=== PATIENT | female | born 1960 | race Two or more races ===

== ENCOUNTER 2017-06-30 01:10 | Inpatient (IN) | payer MEDICARE ==
--- NOTE | 2017-06-30 01:37 | ER Document Report ---
ED General - General Chief Complaint: Chest Pain Stated Complaint: CHEST PAIN Time Seen by Provider: 06/30/17 01:36 Notes: Patient is a 57-year-old female presents with complaint of heaviness on her chest and feeling short of breath and needing dialysis. She just moved here from [place] Friday night. She says that she has not had dialysis since Friday the week before. She is also out of all her medications. She is supposed be on insulin for diabetes. She says she is on hydralazine and clonidine patch for high blood pressure. She is unsure what the dosages of these medications are. She says that her long term care social worker was set up her dialysis appointment here but she never heard about where when the appointment is. She does not have a doctor yet. She has no other complaints at this time. Her dialysis is usually Friday. TRAVEL OUTSIDE OF THE [place] IN LAST 30 DAYS: No - Related Data Allergies/Adverse Reactions: Penicillins Allergy (Verified 06/30/17 01:27) Past Medical History - Social History Smoking Status: Unknown if Ever Smoked Frequency of alcohol use: None Drug Abuse: None Family History: Reviewed & Not Pertinent Review of Systems - Review of Systems Notes: My Normal Review Basic REVIEW OF SYSTEMS: CONSTITUTIONAL : Denies fever, chills, or sweats. Denies recent illness. EENT: Denies eye, ear, throat, or mouth pain or symptoms. Denies nasal or sinus congestion. CARDIOVASCULAR: Chest pressure RESPIRATORY: Difficulty breathing. GASTROINTESTINAL: Denies abdominal pain. Denies nausea, vomiting, or diarrhea. Denies constipation. Last BM: MUSCULOSKELETAL: Denies neck or back pain or joint pain or swelling. SKIN: Denies rash or skin lesions. NEUROLOGICAL: Denies altered mental status or loss of consciousness. Denies headache. Denies weakness or paralysis or loss of use of either side. Denies problems with gait or speech. Denies sensory or motor loss. ALL OTHER SYSTEMS REVIEWED AND NEGATIVE. Physical Exam - Vital signs Vitals: Temp Pulse Resp BP Pulse Ox 98.0 F 102 H 20 225/82 H 94 06/30/17 01:26 06/30/17 01:26 06/30/17 01:26 06/30/17 01:26 06/30/17 01:26 - Notes Notes: General Appearance: Well nourished, alert, cooperative, mild acute distress, no obvious discomfort. Vitals: reviewed, See vital signs table. Head: no swelling or tenderness to the head Eyes: PERRL, EOMI, Conjuctiva clear Mouth: No decreasd moisture Throat: No tonsillar inflammation, No airway obstruction, No lymphadenopathy Neck: Supple, no neck tenderness, No thyromegaly Lungs: Basilar rales. Some tachypnea. Mild distress. Heart: Normal rate, Regular rythm, No murmur, no rub Abdomen: Normal BS, soft, No rigidity, No abdominal tenderness, No guarding, no rebound, no abdominal masses, no organomegaly Extremities: strength 5/5 in all extremities, good pulses in all extremities, no swelling or tenderness in the extremities, no edema. Skin: warm, dry, appropriate color, no rash Neuro: speech clear, oriented x 3, normal affect, responds appropriately to questions. Course - Re-evaluation Re-evalutation: 06/30/17 02:23 Patient's oxygen is occasionally dropping to 90%. I will place her on 2 L of nasal cannula. 06/30/17 04:09 Patient requires dialysis. We do not currently have dialysis capable abilities as we have no trench digging machine operator concrete grinder operator for unassigned nephrology. We do have Dr. Gutierres at 8am. I did call her hospitalist, Dr. Villegas discussed the case with him. His concern is that the patient has peak T waves and that if she was to decompensate need nephrology immediately would be unable to provide that. She requests that we do transfer the patient is currently we actually do not have nephrology coverage. I have spoken to patient's daughter who request [facility]. I have spoken with the transfer center coordinator at [facility] and they are paging the hospitalist for me to speak with. 06/30/17 04:[address] Edward from [facility]. He has agreed to accept the patient. They said they will call us back with that assignment. I will order repeat BMP to keep an eye on the patient's potassium. Dictation of this chart was performed using voice recognition software; therefore, there may be some unintended grammatical errors. 06/30/17 05:24 We just got word from [facility] that even of the joint of the bed would bring the patient over as a rapid transfer however they will not have transport available to somewhere between 730 and 8 AM. We do have nephrology coverage starting at 8 AM. I did call back or hospice, Dr. Villegas, who agrees to accept the patient being that the transferring will not expedite the patient's to dialysis. He requested that I contact Nicholas, the dialysis nurse, to make the patient reported for this morning. I did talk to nursing burling and joining supervisor, Elle, who said she would informed nicholas to make this patient priority for the morning dialysis. I also give Kayexalate as requested by Dr. Villegas. Dictation of this chart was performed using voice recognition software; therefore, there may be some unintended grammatical errors. - Vital Signs Vital signs: Temp Pulse Resp BP Pulse Ox 98.0 F 102 H 20 225/82 H 94 06/30/17 01:26 06/30/17 01:26 06/30/17 01:26 06/30/17 01:26 06/30/17 01:26 - Laboratory Result Diagrams: 06/30/17 02:30 06/30/17 02:30 Laboratory results interpreted by me: 06/30/17 06/30/17 06/30/17 02:30 02:30 02:30 WBC 13.0 H RBC 2.73 L Hgb 8.8 L Hct 26.6 L MCV 98 H RDW 15.6 H Seg Neutrophils % 82.4 H Lymphocytes % 11.5 L Absolute Neutrophils 10.7 H Sodium 135.6 L Potassium 6.1 H* Carbon Dioxide 13 L Anion Gap 24 H BUN 125 H Creatinine 11.26 H Est GFR ( Amer) 4 L Est GFR (Non-Af Amer) 3 L Glucose 440 H* Calcium 7.5 L Direct Bilirubin 0.8 H Alkaline Phosphatase 189 H Creatine Kinase 235 H CK-MB (CK-2) 6.19 H - EKG Interpretation by Me Additional EKG results interpreted by me: 06/30/17 01:37 EKG is reviewed and interpreted by me. EKG shows normal sinus rhythm with rate of [address] segment elevation. Very mild ST segment depression in lead V6. SC interval, QRS duration are within normal range. QTc interval is prolonged. Old EKG available for comparison. Discharge - Discharge Clinical Impression: Hyperkalemia, ESRD (end stage renal disease) Chest pain Qualifiers: Chest pain type: unspecified Qualified Code(s): R07.9 - Chest pain, unspecified Dyspnea Qualifiers: Dyspnea type: unspecified Qualified Code(s): R06.00 - Dyspnea, unspecified Hypertension Qualifiers: Hypertension type: unspecified Qualified Code(s): I10 - Essential (primary) hypertension Condition: Stable Disposition: ADMITTED INPATIENT Admitting Provider: Hospitalist Unit Admitted: [facility]
[2017-06-30] MEDS ORDERED: HYDRALAZINE HCL 50 MG TABLET PO ONE (01:44)
[2017-06-30] MEDS ORDERED: CLONIDINE 0.1 MG/24 HR PATCH.TDWK TD ONE (01:44)
[2017-06-30 03:06] LABS: ABSOLUTE BASOPHILS # (AUTO) 0.2 10^3/uL (0.0-0.2); ABSOLUTE EOSINOPHILS # (AUTO) 0.1 10^3/uL (0.0-0.6); ABSOLUTE LYMPHOCYTES (AUTO) 1.5 10^3/uL (0.5-4.7); ABSOLUTE MONOCYTES (AUTO) 0.5 10^3/uL (0.1-1.4); ABSOLUTE NEUT (AUTO) 10.7 10^3/uL (1.7-8.2); BASOPHILS % (AUTO) 1.3 % (0-2); EOSINOPHILS % (AUTO) 0.6 % (0-6); HEMATOCRIT 26.6 % (36.0-47.0); HEMOGLOBIN 8.8 g/dL (12.0-15.5); HGB HCT DIFFERENCE -0.2; LYMPHOCYTES % (AUTO) 11.5 % (13-45); MEAN CORPUSCULAR HEMOGLOBIN 32.4 pg (27.0-33.4); MEAN CORPUSCULAR HGB CONC 33.1 g/dL (32.0-36.0); MEAN CORPUSCULAR VOLUME 98 fl (80-97); MONOCYTES % (AUTO) 4.2 % (3-13); RED BLOOD COUNT 2.73 10^6/uL (3.72-5.28); RED CELL DISTRIBUTION WIDTH 15.6 % (11.5-14.0); SEGMENTED NEUTROPHILS % (AUTO) 82.4 % (42-78)
--- NOTE | 2017-06-30 03:07 | EKG REPORT ---
SEVERITY:- ABNORMAL ECG - SINUS RHYTHM LEFT ATRIAL ABNORMALITY PROBABLE LEFT VENTRICULAR HYPERTROPHY : Confirmed by: Deng Holt 30-Jun-2017 03:06:49
[2017-06-30 03:22] LABS: ALANINE AMINOTRANSFERASE 42 U/L (9-52); ALBUMIN 3.6 g/dL (3.5-5.0); ALKALINE PHOSPHATASE 189 U/L (38-126); ASPARTATE AMINO TRANSFERASE 22 U/L (14-36); BILIRUBIN,DIRECT 0.8 mg/dL (0.0-0.4); BILIRUBIN,TOTAL 0.8 mg/dL (0.2-1.3); CALCIUM 7.5 mg/dL (8.4-10.2); CARBON DIOXIDE 13 mmol/L (22-30); CHLORIDE 99 mmol/L (98-107); CREATINE KINASE 235 U/L (30-135); CREATININE RESULT 11.26 mg/dL (0.52-1.25); SODIUM 135.6 mmol/L (137-145)
[2017-06-30 03:33] LABS: BLOOD UREA NITROGEN 125 mg/dL (7-20); CREATINE KINASE MB 6.19 ng/mL (<4.55); TROPONIN I 0.033 ng/mL
[2017-06-30 03:35] LABS: GLUCOSE 440 mg/dL (75-110); POTASSIUM 6.1 mmol/L (3.6-5.0)
[2017-06-30] MEDS ORDERED: INSULIN REG, HUMAN 100 UNIT/ML 3 ML VIAL (PYX) IV ONE ×2 (03:40→06:01)
[2017-06-30] MEDS ORDERED: SODIUM BICARBONATE 8.4% INJ 50 MEQ/50 ML DISP.SYRIN IV ONE (03:41)
[2017-06-30 03:43] LABS: ANION GAP 24 (5-19)
--- NOTE | 2017-06-30 03:54 | RADIOLOGY REPORT (SQ) ---
EXAM DESCRIPTION: CHEST SINGLE VIEW CLINICAL HISTORY: 57 years, Female, chest pain, dyspnea COMPARISON: None. LIMITATIONS: None. FINDINGS: Small left basilar opacity may indicate pneumonia or scar. Mild interstitial markings. Normal cardiac silhouette. Intact bony thorax. IMPRESSION: Small left basilar pneumonia/atelectasis. 2011 [employer]- All Rights Reserved
[2017-06-30] MEDS ORDERED: CALCIUM GLUCONATE 1000 MG/10 ML INJ IV ONE (04:05)
[2017-06-30] MEDS ORDERED: SODIUM POLYSTYRENE SULFONATE 15 GM/60 ML PO ONE (05:20)
[2017-06-30] MEDS ORDERED: LACTULOSE SYRUP 20 GM/30 ML UDCUP PO ONE (05:25)
[2017-06-30] MEDS ORDERED: HYDRALAZINE HCL INJ/PF 20 MG/1 ML SDV IV PRN (05:25)
[2017-06-30] MEDS ORDERED: CLONIDINE HCL 0.2 MG TABLET PO ONE (05:25)
[2017-06-30] MEDS ORDERED: IPRATROPIUM/ALBUTEROL 0.5-2.5 MG/3 ML AMPUL NEB ONE (05:26)
[2017-06-30] MEDS ORDERED: DEXTROSE 40% GEL 15 GM TUBE PO PRN ×2 (05:26)
[2017-06-30] MEDS ORDERED: MAG HYDROX/AL HYDROX/SIMETH SUSP 30 ML UDCUP PO PRN ×2 (05:26→10:30)
[2017-06-30] MEDS ORDERED: INSULIN LISPRO 100 UNIT/ML 3 ML VIAL SUBCUT PRN (05:26)
[2017-06-30] MEDS ORDERED: IPRATROPIUM/ALBUTEROL 0.5-2.5 MG/3 ML AMPUL NEB PRN (05:26)
[2017-06-30] MEDS ORDERED: PROMETHAZINE HCL 25 MG TABLET PO PRN (05:26)
[2017-06-30] MEDS ORDERED: DEXTROSE 50%-WATER 25 GM/50 ML DISP.SYRIN IV PRN ×2 (05:26)
[2017-06-30] MEDS ORDERED: ACETAMINOPHEN 325 MG TABLET PO PRN ×2 (05:26→10:30)
[2017-06-30] MEDS ORDERED: GLUCAGON,HUMAN RECOMB 1 MG INJ IM PRN (05:26)
--- NOTE | 2017-06-30 06:10 | PDOC H&P ---
History of Present Illness Patient complains of: Shortness of breath and chest tightness History of Present Illness: SAMIA HEALY is a 57 year old female with a past medical history of insulin- dependent diabetes, hypertension and oliguric end-stage renal failure on dialysis Friday. Patient has just arrived in [place] after a [address] for relocation from [place]. She has subsequently missed 3 dialysis appointments and several days of unknown medications. Over the last 48 hours she has had shortness of breath and chest tightness. In the emergency room she is found to have a systolic pressure of 230/90, potassium of 6.1 with a long QT interval and peak T waves. She receives clonidine, Kayexalate, calcium gluconate and insulin and is referred to the hospitalist for ICU admission. She is currently pain-free and comfortable on nasal cannula oxygen. Past Medical History Cardiac Medical History: Reports: Hypertension Pulmonary Medical History: Reports: None EENT Medical History: Reports: None Neurological Medical History: Reports: None Endocrine Medical History: Reports: Diabetes Mellitus Type 1 Malignancy Medical History: Reports: None GI Medical History: Reports: None Musculoskeltal Medical History: Reports: None Skin Medical History: Reports: None Psychiatric Medical History: Reports: None Traumatic Medical History: Reports: None Hematology: Reports: None Infectious Medical History: Reports: None Past Surgical History Past Surgical History: Reports: Other - Hemodialysis vascular access left upper extremity Social History Information Source: Patient Lives with: Alone Smoking Status: Unknown if Ever Smoked Frequency of Alcohol Use: None Drugs: None - Advance Directive Resuscitation Status: Full Code Family History Family History: DM, Hypertension Parental Family History Reviewed: Yes Children Family History Reviewed: Yes Sibling(s) Family History Reviewed.: Yes Medication/Allergy Allergies/Adverse Reactions: Penicillins Allergy (Verified 06/30/17 01:27) Review of Systems Constitutional: PRESENT: as per HPI, fatigue, weakness, weight gain. ABSENT: anorexia, chills, fever(s), headache(s) Eyes: ABSENT: visual disturbances Ears: ABSENT: hearing changes Cardiovascular: PRESENT: chest pain, dyspnea on exertion, edema, orthropnea. ABSENT: palpitations Respiratory: PRESENT: as per HPI, cough, dyspnea. ABSENT: hemoptysis Gastrointestinal: ABSENT: abdominal pain, constipation, diarrhea, hematemesis, hematochezia, nausea, vomiting Genitourinary: ABSENT: dysuria, hematuria Musculoskeletal: ABSENT: joint swelling Integumentary: ABSENT: rash, wounds Neurological: ABSENT: abnormal gait, abnormal speech, confusion, dizziness, focal weakness, syncope Psychiatric: ABSENT: anxiety, depression, homidical ideation, suicidal ideation Endocrine: ABSENT: cold intolerance, heat intolerance, polydipsia, polyuria Hematologic/Lymphatic: ABSENT: easy bleeding, easy bruising Physical Exam Vital Signs: Temp Pulse Resp BP Pulse Ox 98.0 F 102 H 20 225/82 H 94 06/30/17 01:26 06/30/17 01:26 06/30/17 01:26 06/30/17 01:26 06/30/17 01:26 Intake & Output 06/28/17 06/29/17 06/30/17 11:59 11:59 11:59 Weight 61.6 kg General appearance: PRESENT: cooperative, mild distress Head exam: PRESENT: atraumatic, normocephalic Eye exam: PRESENT: conjunctiva pink, EOMI, PERRLA. ABSENT: scleral icterus Ear exam: PRESENT: normal external ear exam Mouth exam: PRESENT: moist, tongue midline Neck exam: PRESENT: full ROM, JVD. ABSENT: carotid bruit, lymphadenopathy, meningismus, tenderness, thyromegaly Respiratory exam: PRESENT: accessory muscle use, crackles, prolonged expiratory phas, symmetrical, tachypnea. ABSENT: wheezes Cardiovascular exam: PRESENT: gallop, RRR, +S1, +S2, systolic murmur, tachycardia Pulses: PRESENT: +1 pedal pulses bilateral Vascular exam: PRESENT: normal capillary refill GI/Abdominal exam: PRESENT: normal bowel sounds, soft. ABSENT: distended, guarding, mass, organolmegaly, rebound, tenderness Rectal exam: PRESENT: deferred Extremities exam: PRESENT: full ROM, pedal edema, +1 edema. ABSENT: calf tenderness, clubbing Neurological exam: PRESENT: alert, awake, oriented to person, oriented to place , oriented to time, oriented to situation, CN II-XII grossly intact. ABSENT: motor sensory deficit Psychiatric exam: PRESENT: appropriate affect, normal mood. ABSENT: homicidal ideation, suicidal ideation Skin exam: PRESENT: dry, intact, warm. ABSENT: cyanosis, rash Results Laboratory Results: 06/30/17 02:30 06/30/17 02:30 06/30/17 06/30/17 02:30 02:30 WBC 13.0 H RBC 2.73 L Hgb 8.8 L Hct 26.6 L MCV 98 H MCH 32.4 MCHC 33.1 RDW 15.6 H Plt Count 347 Seg Neutrophils % 82.4 H Lymphocytes % 11.5 L Monocytes % 4.2 Eosinophils % 0.6 Basophils % 1.3 Absolute Neutrophils 10.7 H Absolute Lymphocytes 1.5 Absolute Monocytes 0.5 Absolute Eosinophils 0.1 Absolute Basophils 0.2 Sodium 135.6 L Potassium 6.1 H* Chloride 99 Carbon Dioxide 13 L Anion Gap 24 H BUN 125 H Creatinine 11.26 H Est GFR ( Amer) 4 L Est GFR (Non-Af Amer) 3 L Glucose 440 H* Calcium 7.5 L Total Bilirubin 0.8 AST 22 ALT 42 Alkaline Phosphatase 189 H Total Protein 7.0 Albumin 3.6 06/30/17 06/30/17 02:30 02:30 Creatine Kinase 235 H CK-MB (CK-2) 6.19 H Troponin I 0.033 Impressions: Chest X-Ray 06/30/17 01:43 IMPRESSION: Small left basilar pneumonia/atelectasis. 2010 [employer]- All Rights Reserved Assessment & Plan - Diagnosis (1) Hypertensive emergency Is this a current diagnosis for this admission?: Yes Plan: ICU admission, secondary to noncompliance, IV hydralazine, clonidine and nitroglycerin. (2) End stage renal failure on dialysis Is this a current diagnosis for this admission?: Yes Plan: Secondary to noncompliance, ICU admission for emergent dialysis (3) Volume overload Is this a current diagnosis for this admission?: Yes Plan: Oliguric end-stage renal failure, dialysis dependent, fluid restriction, nephrology consult for dialysis ordered, BiPAP as needed (4) Diabetes Is this a current diagnosis for this admission?: Yes Plan: Patient believes she is on fast acting insulin only. Humalog sliding scale every 6 hours ordered pending Accu-Chek results (5) Chest pain Qualifiers: Chest pain type: unspecified Qualified Code(s): R07.9 - Chest pain, unspecified Is this a current diagnosis for this admission?: Yes Plan: Serial cardiac enzymes (6) Dyspnea Qualifiers: Dyspnea type: unspecified Qualified Code(s): R06.00 - Dyspnea, unspecified Is this a current diagnosis for this admission?: Yes Plan: Secondary to volume overload dialysis pending (7) Hyperkalemia Is this a current diagnosis for this admission?: Yes Plan: Secondary to end-stage renal failure, calcium gluconate, insulin, Kayexalate and nephrology consult ordered (8) Long QT interval Is this a current diagnosis for this admission?: Yes Plan: Avoid agents prolonging QT interval - Time Time Spent: 50 to 70 Minutes - Inpatient Certification Medical Necessity: Need Close Monitoring Due to Risk of Patient Decompensation
[2017-06-30 06:25] LABS: CALCIUM 7.7 mg/dL (8.4-10.2); CARBON DIOXIDE 15 mmol/L (22-30); CHLORIDE 97 mmol/L (98-107); CREATININE RESULT 11.25 mg/dL (0.52-1.25)
[2017-06-30 06:44] LABS: BLOOD UREA NITROGEN 127 mg/dL (7-20)
[2017-06-30 06:47] LABS: GLUCOSE 450 mg/dL (75-110)
[2017-06-30 06:48] LABS: POTASSIUM 6.1 mmol/L (3.6-5.0)
[2017-06-30 07:16] LABS: ANION GAP 25 (5-19)
--- NOTE | 2017-06-30 08:51 | EKG REPORT ---
SEVERITY:- ABNORMAL ECG - SINUS TACHYCARDIA LEFT ATRIAL ABNORMALITY PROBABLE LEFT VENTRICULAR HYPERTROPHY : Confirmed by: Deng Holt 30-Jun-2017 08:50:55
[2017-06-30] MEDS: HEPARIN SOD (PORCINE) 5,000 UNIT/ML 1 ML SYRINGE SUBCUT SCH ×3 (08:53→21:18)
[2017-06-30] MEDS: DOCUSATE SODIUM 100 MG CAPSULE PO SCH ×2 (08:54→17:06)
[2017-06-30] MEDS ORDERED: HEPARIN SOD (PORCINE) 1,000 UNIT/ML 10 ML VIAL IV PRN ×2 (09:40→12:58)
[2017-06-30] MEDS ORDERED: NORMAL SALINE 500 ML IV PRN (09:40)
[2017-06-30] MEDS ORDERED: EPOETIN ALFA INJ 20000 UNIT/1 ML VIAL (RENAL) IV PRN (10:00)
[2017-06-30 10:43] LABS: CALCIUM 7.8 mg/dL (8.4-10.2); CARBON DIOXIDE 17 mmol/L (22-30); CREATININE RESULT 11.26 mg/dL (0.52-1.25); GLUCOSE 307 mg/dL (75-110); POTASSIUM 5.3 mmol/L (3.6-5.0)
[2017-06-30 10:57] LABS: BLOOD UREA NITROGEN 129 mg/dL (7-20)
[2017-06-30 11:05] LABS: CHLORIDE 99 mmol/L (98-107); SODIUM 139.5 mmol/L (137-145)
[2017-06-30 11:10] LABS: ANION GAP 24 (5-19)
--- NOTE | 2017-06-30 14:44 | PDOC CONSULTATION ---
Consultation Consult Date: 06/30/17 Consult reason:: Urgent dialysis in the setting of uremia, hyperkalemia and metabolic acidosis History of Present Illness Admission Date/PCP: 06/30/17 05:26 History of Present Illness: SAMIA HEALY is a 57 year old female with a past medical history of insulin-dependent diabetes, hypertension and oliguric end-stage renal failure on dialysis Friday. Patient has just arrived in [place] after a [address] for relocation from [place]. She has subsequently missed 3 dialysis appointments and several days of unknown medications. Over the last 48 hours she has had shortness of breath and chest tightness. She also has had intermittent nausea and has lost her appetite. In the emergency room she is found to have a systolic pressure of 230/90, potassium of 6.1 with a long QT interval and peak T waves. She received clonidine, Kayexalate, calcium gluconate and insulin and was admitted. Sh was seen early in the morning and later for dialysis. She is currently undergoing dialysis without any issues. Past Medical History Cardiac Medical History: Reports: Hypertension-primary Pulmonary Medical History: Reports: None EENT Medical History: Reports: None Neurological Medical History: Reports: None Endocrine Medical History: Reports: Diabetes Mellitus Type 2 Complications of Diabetes: Reports: None Renal/ Medical History: Reports: End Stage Renal Disease, Secondary Hyperparathyroidism Malignancy Medical History: Reports: None GI Medical History: Reports: None Musculoskeltal Medical History: Reports: None Skin Medical History: Reports: None Psychiatric Medical History: Reports: None Traumatic Medical History: Reports: None Infectious Medical History: Reports: None Hematology Medical History: Reports Anemia of Chronic Kidney Disease Past Surgical History Past Surgical History: Reports: Other - Hemodialysis vascular access left upper extremity Social History Lives with: Alone Smoking Status: Never Smoker Frequency of Alcohol Use: None Hx Recreational Drug Use: No Drugs: None Hx Prescription Drug Abuse: No - Advance Directive Resuscitation Status: Full Code Family History Parental Family History Reviewed: No Children Family History Reviewed: No Sibling(s) Family History Reviewed.: No Medication/Allergy Home Medications: Calcium Acetate [Phoslo 667 mg Capsule] 667 mg PO MEALS 06/30/17 Clonidine [Catapres-Tts 1 (0.1 mg/24 Hr) Transderm Patch] 1 patch TOP MO@1000 Insulin Lispro [Humalog Insulin (Lispro) 100 unit/mL] 0 unit SQ .SLIDING SCALE 06/30/17 Allergies/Adverse Reactions: Penicillins Allergy (Verified 06/30/17 01:27) Review of Systems Constitutional: PRESENT: anorexia, fatigue, weakness. ABSENT: fever(s), headache(s), night sweats Nose, Mouth, and Throat: ABSENT: headache(s), mouth pain, sore throat Cardiovascular: PRESENT: dyspnea on exertion. ABSENT: chest pain, edema, orthropnea Respiratory: PRESENT: dyspnea. ABSENT: cough, hemoptysis Gastrointestinal: PRESENT: nausea. ABSENT: abdominal pain, diarrhea, dysphagia , heartburn, hematemesis, hematochezia, melena, vomiting Genitourinary: ABSENT: dysuria, hematuria Integumentary: ABSENT: erythema, pruritus Neurological: ABSENT: abnormal movements, abnormal speech, confusion, convulsions, dizziness, focal weakness Hematologic/Lymphatic: ABSENT: easy bruising, lymphadenopathy Physical Exam Vital Signs: Temp Pulse Resp BP Pulse Ox 97.8 F 91 18 143/68 H 100 06/30/17 12:00 06/30/17 12:00 06/30/17 12:00 06/30/17 12:00 06/30/17 12:00 Intake & Output 06/29/17 06/30/17 07/01/17 06:59 06:59 06:59 Output Total 1 Balance -1 Weight 61.2 kg General appearance: PRESENT: no acute distress Eye exam: PRESENT: EOMI, PERRLA. ABSENT: nystagmus Ear exam: PRESENT: normal external ear exam Mouth exam: PRESENT: neck supple. ABSENT: moist Neck exam: ABSENT: lymphadenopathy, meningismus, tenderness, thyromegaly, tracheal deviation Respiratory exam: PRESENT: clear to auscultation carlos. ABSENT: crackles, rhonchi Cardiovascular exam: PRESENT: +S1, +S2, systolic murmur GI/Abdominal exam: PRESENT: normal bowel sounds, soft. ABSENT: distended, guarding, organomegaly, tenderness Extremities exam: PRESENT: +1 edema Neurological exam: PRESENT: alert, oriented to person, oriented to place. ABSENT: oriented to time Psychiatric exam: PRESENT: appropriate affect Skin exam: PRESENT: dry. ABSENT: erythema, mottled Results Laboratory Results: 06/30/17 10:13 06/30/17 06/30/17 05:50 10:13 Sodium 137.0 139.5 Potassium 6.1 H* 5.3 H Chloride 97 L 99 Carbon Dioxide 15 L 17 L Anion Gap 25 H 24 H BUN 127 H 129 H Creatinine 11.25 H 11.26 H Est GFR ( Amer) 4 L 4 L Est GFR (Non-Af Amer) 3 L 3 L Glucose 450 H* 307 H Calcium 7.7 L 7.8 L Impressions: Chest X-Ray 06/30/17 01:43 IMPRESSION: Small left basilar pneumonia/atelectasis. 2010 [employer]- All Rights Reserved Assessment & Plan - Diagnosis (1) Hyperkalemia Is this a current diagnosis for this admission?: Yes Plan: She needs urgent dialysis and was ordered. Plan a 2 k bath and aim a uf of 3-4 l as tolerated. Adv on not missing dialysis like this in the future. Discussed consequences of missing dialysis including sudden fro hyperkalemia. Discussed various abnormalities of her current labs.Will get [facility] to arrange and coordinate out patient dialysis at [facility] so that she can be discharged home. (2) End stage renal failure on dialysis Is this a current diagnosis for this admission?: Yes Plan: She is now on dialysis and is being supervised to ensure a safe and smooth procedure. Vital signs are stable. Discussed orders with treating RN Kay. (3) Anemia of renal disease Plan: Ordered epo 20 k for dialysis. (4) Metabolic acidosis Plan: See response to dialysis. (5) Diabetes Is this a current diagnosis for this admission?: Yes Plan: adv need for tight control. (6) Hypertension Qualifiers: Hypertension type: unspecified Qualified Code(s): I10 - Essential (primary ) hypertension Plan: monitor and see response to dialysis.Adv on compliance with medications as she has been missing her meds while travelling form [place] to here. (7) Hypertensive emergency Is this a current diagnosis for this admission?: Yes Plan: as per hospitalist.
[2017-06-30] MEDS: CLONIDINE HCL 0.2 MG TABLET PO SCH ×2 (15:43→17:25)
[2017-06-30 16:35] LABS: CALCIUM 8.3 mg/dL (8.4-10.2); CHLORIDE 97 mmol/L (98-107); CREATININE RESULT 3.67 mg/dL (0.52-1.25); GLUCOSE 125 mg/dL (75-110)
[2017-06-30 16:48] LABS: ANION GAP 14 (5-19)
[2017-06-30 16:51] LABS: BLOOD UREA NITROGEN 33 mg/dL (7-20); CARBON DIOXIDE 28 mmol/L (22-30); POTASSIUM 3.3 mmol/L (3.6-5.0)
--- NOTE | 2017-06-30 17:46 | PDOC PROGRESS REPORT ---
Subjective Progress Note for:: 06/30/17 Subjective:: Patient is without complaints. At the time of my exam she has already completed dialysis Reason For Visit: ESRD VOL OVERLOAD HYPERKALEMIA Physical Exam Vital Signs: Temp Pulse Resp BP Pulse Ox 97.5 F 90 16 165/71 H 100 06/30/17 16:00 06/30/17 16:00 06/30/17 16:00 06/30/17 16:00 06/30/17 16:00 Intake & Output 06/29/17 06/30/17 07/01/17 06:59 06:59 06:59 Output Total 1 Balance -1 Weight 61.2 kg General appearance: PRESENT: no acute distress Eye exam: PRESENT: conjunctiva pink. ABSENT: scleral icterus Mouth exam: PRESENT: moist, tongue midline Neck exam: ABSENT: JVD Respiratory exam: PRESENT: clear to auscultation carlos. ABSENT: rales, rhonchi, wheezes Cardiovascular exam: PRESENT: RRR. ABSENT: diastolic murmur, rubs, systolic murmur GI/Abdominal exam: PRESENT: normal bowel sounds, soft. ABSENT: distended, guarding, mass, organolmegaly, rebound, tenderness Extremities exam: ABSENT: calf tenderness, clubbing, pedal edema Neurological exam: PRESENT: alert, awake, oriented to person, oriented to place , oriented to time, oriented to situation, CN II-XII grossly intact. ABSENT: motor sensory deficit Psychiatric exam: PRESENT: appropriate affect Skin exam: PRESENT: dry, intact, warm. ABSENT: cyanosis, rash Results Laboratory Results: 06/30/17 16:10 06/30/17 06/30/17 06/30/17 05:50 10:13 16:10 Sodium 137.0 139.5 139.0 Potassium 6.1 H* 5.3 H 3.3 L D Chloride 97 L 99 97 L Carbon Dioxide 15 L 17 L 28 D Anion Gap 25 H 24 H 14 BUN 127 H 129 H 33 H D Creatinine 11.25 H 11.26 H 3.67 H Est GFR ( Amer) 4 L 4 L 15 L Est GFR (Non-Af Amer) 3 L 3 L 13 L Glucose 450 H* 307 H 125 H Calcium 7.7 L 7.8 L 8.3 L Impressions: Chest X-Ray 06/30/17 01:43 IMPRESSION: Small left basilar pneumonia/atelectasis. 2010 [employer]- All Rights Reserved Assessment & Plan - Diagnosis (1) Hypertensive emergency Is this a current diagnosis for this admission?: Yes Plan: The hypertensive emergency was secondary to having missed 3 sessions of dialysis. She has been dialyzed and is doing much better. (2) Volume overload Is this a current diagnosis for this admission?: Yes Plan: Improving after dialysis. (3) Anemia of renal disease Is this a current diagnosis for this admission?: Yes (4) Diabetes Is this a current diagnosis for this admission?: Yes Plan: Continue with sliding scale insulin. (5) ESRD (end stage renal disease) Is this a current diagnosis for this admission?: Yes Plan: Patient already has her outpatient dialysis arranged. She normally does Saturdays for dialysis. (6) Hyperkalemia Is this a current diagnosis for this admission?: Yes Plan: Treated with dialysis. - Time Time Spent with patient: 25-34 minutes - Inpatient Certification Medical Necessity: Need Close Monitoring Due to Risk of Patient Decompensation - Plan Summary Plan Summary: If she does well overnight she should be able to be discharged home tomorrow.
[2017-07-01] MEDS: CLONIDINE HCL 0.2 MG TABLET PO SCH ×3 (01:14→14:38)
[2017-07-01 04:03] LABS: ABSOLUTE BASOPHILS # (AUTO) 0.1 10^3/uL (0.0-0.2); ABSOLUTE EOSINOPHILS # (AUTO) 0.2 10^3/uL (0.0-0.6); ABSOLUTE LYMPHOCYTES (AUTO) 2.1 10^3/uL (0.5-4.7); ABSOLUTE MONOCYTES (AUTO) 0.6 10^3/uL (0.1-1.4); ABSOLUTE NEUT (AUTO) 7.9 10^3/uL (1.7-8.2); BASOPHILS % (AUTO) 0.9 % (0-2); EOSINOPHILS % (AUTO) 1.5 % (0-6); HEMATOCRIT 24.2 % (36.0-47.0); HEMOGLOBIN 8.4 g/dL (12.0-15.5); LYMPHOCYTES % (AUTO) 19.3 % (13-45); MEAN CORPUSCULAR HEMOGLOBIN 32.9 pg (27.0-33.4); MEAN CORPUSCULAR HGB CONC 34.5 g/dL (32.0-36.0); MEAN CORPUSCULAR VOLUME 95 fl (80-97); MONOCYTES % (AUTO) 5.8 % (3-13); RED BLOOD COUNT 2.54 10^6/uL (3.72-5.28); SEGMENTED NEUTROPHILS % (AUTO) 72.5 % (42-78); WHITE BLOOD COUNT 10.9 10^3/uL (4.0-10.5)
[2017-07-01 04:21] LABS: ANION GAP 17 (5-19); BLOOD UREA NITROGEN 42 mg/dL (7-20); CALCIUM 7.6 mg/dL (8.4-10.2); CARBON DIOXIDE 27 mmol/L (22-30); CHLORIDE 97 mmol/L (98-107); CREATININE RESULT 4.99 mg/dL (0.52-1.25); GLUCOSE 161 mg/dL (75-110); POTASSIUM 4.1 mmol/L (3.6-5.0); SODIUM 140.5 mmol/L (137-145)
[2017-07-01] MEDS: HEPARIN SOD (PORCINE) 5,000 UNIT/ML 1 ML SYRINGE SUBCUT SCH ×2 (06:32→15:12)
[2017-07-01] MEDS: DOCUSATE SODIUM 100 MG CAPSULE PO SCH (11:42)
--- NOTE | 2017-07-01 15:21 | PDOC PROGRESS REPORT ---
Subjective Progress Note for:: 07/01/17 Subjective:: Patient was laying in bed comfortably. She is wanting to go home to her daughters house. She says that when she gets back she will get back to her regular dialysis treatment schedule. She has no major complaints. She denies chest pain, SOB, cough, congestion, nausea, or vomiting. Reason For Visit: ESRD VOL OVERLOAD HYPERKALEMIA Physical Exam Vital Signs: Temp Pulse Resp BP Pulse Ox 98.8 F 72 14 130/53 H 99 07/01/17 12:00 07/01/17 14:00 07/01/17 12:00 07/01/17 12:00 07/01/17 12:00 Intake & Output 06/30/17 07/01/17 07/02/17 06:59 06:59 06:59 Intake Total 300 200 Output Total 3401 Balance -3101 200 Weight 59.2 kg General appearance: PRESENT: no acute distress, well-developed, well-nourished Head exam: PRESENT: atraumatic, normocephalic Mouth exam: PRESENT: moist, tongue midline Neck exam: ABSENT: JVD, tracheal deviation Respiratory exam: PRESENT: crackles - -bases. ABSENT: accessory muscle use, clear to auscultation carlos, rhonchi, wheezes Cardiovascular exam: PRESENT: +S1, +S2, systolic murmur GI/Abdominal exam: PRESENT: normal bowel sounds, soft. ABSENT: distended, guarding, organomegaly, tenderness Extremities exam: ABSENT: joint swelling, pedal edema, tenderness Neurological exam: PRESENT: alert, awake, oriented to person, oriented to place , oriented to time, oriented to situation Psychiatric exam: PRESENT: appropriate affect, normal mood Skin exam: PRESENT: dry, intact, warm. ABSENT: cyanosis, rash Results Laboratory Results: 07/01/17 03:47 07/01/17 03:47 06/30/17 07/01/17 07/01/17 16:10 03:47 03:47 WBC 10.9 H RBC 2.54 L Hgb 8.4 L Hct 24.2 L MCV 95 MCH 32.9 MCHC 34.5 RDW 15.0 H Plt Count 317 Seg Neutrophils % 72.5 Lymphocytes % 19.3 Monocytes % 5.8 Eosinophils % 1.5 Basophils % 0.9 Absolute Neutrophils 7.9 Absolute Lymphocytes 2.1 Absolute Monocytes 0.6 Absolute Eosinophils 0.2 Absolute Basophils 0.1 Sodium 139.0 140.5 Potassium 3.3 L D 4.1 Chloride 97 L 97 L Carbon Dioxide 28 D 27 Anion Gap 14 17 BUN 33 H D 42 H Creatinine 3.67 H 4.99 H Est GFR ( Amer) 15 L 11 L Est GFR (Non-Af Amer) 13 L 9 L Glucose 125 H 161 H Calcium 8.3 L 7.6 L Impressions: Chest X-Ray 06/30/17 01:43 IMPRESSION: Small left basilar pneumonia/atelectasis. 2010 [employer]- All Rights Reserved Assessment & Plan - Diagnosis (1) ESRD (end stage renal disease) Is this a current diagnosis for this admission?: Yes Plan: Will do dialysis tomorrow if she is still around. If she has been discharged then she will continue her normal outpatient dialysis. Patient is currently stable and ready for discharge from nephrology's perspective. (2) Anemia of renal disease Is this a current diagnosis for this admission?: Yes Plan: will give epogen tomorrow if she is still here. If she is discharged then she should be receiving it at her dialysis facility as outpatient. (3) Hyperkalemia Is this a current diagnosis for this admission?: Yes Plan: stable (4) Volume overload Is this a current diagnosis for this admission?: Yes Plan: greatly improved with no SOB, still hear minor crackles in the bases. (5) Diabetes Is this a current diagnosis for this admission?: Yes Plan: trending down to being more controlled (6) Hypertension Qualifiers: Hypertension type: unspecified Qualified Code(s): I10 - Essential (primary ) hypertension Plan: currently well controlled (7) Metabolic acidosis Plan: currently resolved and stable
--- NOTE | 2017-07-01 15:40 | PDOC DISCHARGE SUMMARY ---
General - Admit/Disc Date/PCP Admission Date/Primary Care Provider: 06/30/17 05:26 Discharge Date: 07/01/17 - Discharge Diagnosis (1) Anemia of renal disease Is this a current diagnosis for this admission?: Yes Summary: Stable (2) Chest pain Is this a current diagnosis for this admission?: Yes Summary: Resolved (3) Diabetes Is this a current diagnosis for this admission?: Yes Summary: Continue home medications with sliding scale insulin. Prescription was provided. (4) Hyperkalemia Is this a current diagnosis for this admission?: Yes Summary: Resolved with dialysis. (5) End stage renal failure on dialysis Is this a current diagnosis for this admission?: Yes Summary: Follow-up Friday, Friday - Additional Information Resuscitation Status: Full Code Home Medications: Calcium Acetate [Phoslo 667 mg Capsule] 667 mg PO MEALS #90 capsule 07/01/17 Clonidine [Catapres-Tts 1 (0.1 mg/24 Hr) Transderm Patch] 1 patch TOP MO@1000 # 4 patch.tdwk 07/01/17 Insulin Lispro [Humalog Insulin (Lispro) 100 unit/mL] 0 unit SQ .SLIDING SCALE # 10 ml 07/01/17 History of Present Illness History of Present Illness: SAMIA HEALY is a 57 year old female who was admitted to the service with hyperkalemia secondary to missing 3 consecutive dialysis appointments. Please see the H&P as outlined below from the admitting physician. History of Present Illness Patient complains of: Shortness of breath and chest tightness History of Present Illness: SAMIA HEALY is a 57 year old female with a past medical history of insulin- dependent diabetes, hypertension and oliguric end-stage renal failure on dialysis Friday. Patient has just arrived in [place] after a [address] for relocation from [place]. She has subsequently missed 3 dialysis appointments and several days of unknown medications. Over the last 48 hours she has had shortness of breath and chest tightness. In the emergency room she is found to have a systolic pressure of 230/90, potassium of 6.1 with a long QT interval and peak T waves. She receives clonidine, Kayexalate, calcium gluconate and insulin and is referred to the hospitalist for ICU admission. She is currently pain-free and comfortable on nasal cannula oxygen. Hospital Course Hospital Course: Patient was admitted to the hospital underwent urgent dialysis. Her blood pressure was managed with clonidine. Her diabetes was managed by sliding scale insulin. The patient did quite well and improved tremendously after dialysis. Dialysis has been arranged for her as an outpatient on Friday, and Friday. The nursing staff tried multiple times at my request to contact the dialysis facility and try and get her changed to Friday schedule. The patient states that she has her 3-year-old grandson that she takes care of and needs to have daycare available so that he can be cared for while she is at dialysis. Having a Friday schedule would increase her level of compliance. Unfortunately we could not get a hold of anyone at the dialysis center. She will need to follow-up there tomorrow and discuss changing her schedule at that time. The patient will also need to establish with a primary care physician. Physical Exam Vital Signs: Temp Pulse Resp BP Pulse Ox 98.5 F 73 31 H 130/67 H 92 07/01/17 08:00 07/01/17 08:00 07/01/17 08:00 07/01/17 08:00 07/01/17 08:00 Intake & Output 06/30/17 07/01/17 07/02/17 06:59 06:59 06:59 Intake Total 300 Output Total 3401 Balance -3101 Weight 59.2 kg GENERAL: This is a well-developed well-nourished appearing female resting in bed currently in no acute distress. HEART: Regular rate and rhythm. No murmurs, rubs or gallops. LUNGS: Clear to auscultation bilaterally with equal rise and fall of the chest. ABDOMEN: Soft, nontender, nondistended with normoactive bowel sounds EXTREMETIES: No clubbing, cyanosis or edema. 2+ peripheral pulses bilaterally. NEURO: Awake, alert and oriented 3. Cranial nerves II through XII are grossly intact. Results Laboratory Results: 07/01/17 03:47 07/01/17 03:47 06/30/17 06/30/17 07/01/17 10:13 16:10 03:47 WBC RBC Hgb Hct MCV MCH MCHC RDW Plt Count Seg Neutrophils % Lymphocytes % Monocytes % Eosinophils % Basophils % Absolute Neutrophils Absolute Lymphocytes Absolute Monocytes Absolute Eosinophils Absolute Basophils Sodium 139.5 139.0 140.5 Potassium 5.3 H 3.3 L D 4.1 Chloride 99 97 L 97 L Carbon Dioxide 17 L 28 D 27 Anion Gap 24 H 14 17 BUN 129 H 33 H D 42 H Creatinine 11.26 H 3.67 H 4.99 H Est GFR ( Amer) 4 L 15 L 11 L Est GFR (Non-Af Amer) 3 L 13 L 9 L Glucose 307 H 125 H 161 H Calcium 7.8 L 8.3 L 7.6 L 07/01/17 03:47 WBC 10.9 H RBC 2.54 L Hgb 8.4 L Hct 24.2 L MCV 95 MCH 32.9 MCHC 34.5 RDW 15.0 H Plt Count 317 Seg Neutrophils % 72.5 Lymphocytes % 19.3 Monocytes % 5.8 Eosinophils % 1.5 Basophils % 0.9 Absolute Neutrophils 7.9 Absolute Lymphocytes 2.1 Absolute Monocytes 0.6 Absolute Eosinophils 0.2 Absolute Basophils 0.1 Sodium Potassium Chloride Carbon Dioxide Anion Gap BUN Creatinine Est GFR ( Amer) Est GFR (Non-Af Amer) Glucose Calcium Impressions: Chest X-Ray 06/30/17 01:43 IMPRESSION: Small left basilar pneumonia/atelectasis. 2010 [employer]- All Rights Reserved Qualifiers PATEINT BEING DISCHARGED WITH ANY OF THE FOLLOWING DIAGNOSIS?: No Plan Time Spent: Less than 30 Minutes
[2017-07-01 16:19] VITALS: BP 146/64
== END 2017-07-01 16:44 | disposition home or self-care (01) | DRG 640 ==
LOC: ER 01:10 → EH 05:26 → ICU 08:23
PROVIDERS: ADMIT Internal Medicine; ATTEND Internal Medicine
PROC: 5A1D70Z Performance of Urinary Filtration, Intermittent, Less than 6 Hours Per Day (ICD-10-PCS; principal; 2017-06-30)
DX: E87.5 Hyperkalemia (principal); N18.6 End stage renal disease; I12.0 Hypertensive chronic kidney disease with stage 5 chronic kidney disease or end stage renal disease; I16.0 Hypertensive urgency; E87.2 Acidosis; E11.22 Type 2 diabetes mellitus with diabetic chronic kidney disease; D63.1 Anemia in chronic kidney disease; I45.81 Long QT syndrome; Z99.2 Dependence on renal dialysis; Z79.4 Long term (current) use of insulin; Z91.15 Patient's noncompliance with renal dialysis
CPT/HCPCS: 36415; 71010; 80048; 80053; 80074; 82550; 82553; 82962; 84484; 85025; 86317; 87340; 93005; 93010; 96365; 99285; J0610; J1644; J1815; J3490; J7620; Q4081

== ENCOUNTER 2017-07-15 02:16 | Emergency (ER) | payer MEDICARE ==
[2017-07-15] MEDS ORDERED: NITROGLYCERIN 2% OINTMENT 1 GM PACKET TP ONE (02:28)
--- NOTE | 2017-07-15 02:34 | ER Document Report ---
ED Respiratory Problem - General Chief Complaint: Shortness Of Breath Stated Complaint: TROUBLE BREATHING Time Seen by Provider: 07/15/17 02:21 Notes: Patient is a 57-year-old female with a history of end-stage renal disease on dialysis that comes emergency department for chief complaint of difficulty breathing. She states that she does have a mild cough, she states that she was doing okay until this evening at about 10 PM when she started getting shortness of breath and this has progressively worsened. She had dialysis last performed on Friday, she is supposed to have dialysis performed this morning She is new to the area from [place], she has not established with a local customer field representative although she is going to [place] dialysis. Past medical history also includes insulin-dependent diabetes and hypertension. She makes very little urine, she states she only urinates a few ounces in the morning and a few ounces in the evening. TRAVEL OUTSIDE OF THE [place] IN LAST 30 DAYS: No - Related Data Allergies/Adverse Reactions: Penicillins Allergy (Verified 06/30/17 01:27) Past Medical History - General Information source: Patient - Social History Smoking Status: Never Smoker Frequency of alcohol use: None Drug Abuse: None Lives with: Alone Family History: DM, Hypertension - Past Medical History Cardiac Medical History: Reports: Hx Hypertension Endocrine Medical History: Reports: Hx Diabetes Mellitus Type 2 Renal/ Medical History: Reports: Hx End Stage Renal Disease, Hx Peritoneal Dialysis Past Surgical History: Reports: Other - Hemodialysis vascular access left upper extremity Review of Systems - Review of Systems Constitutional: No symptoms reported EENT: No symptoms reported Cardiovascular: See HPI Respiratory: See HPI Gastrointestinal: No symptoms reported Genitourinary: No symptoms reported Female Genitourinary: No symptoms reported Musculoskeletal: No symptoms reported Skin: No symptoms reported Hematologic/Lymphatic: No symptoms reported Neurological/Psychological: No symptoms reported Physical Exam - Vital signs Vitals: Temp Pulse Resp BP Pulse Ox 99.2 F 110 H 26 H 226/84 H 86 L 07/15/17 02:21 07/15/17 02:21 07/15/17 02:21 07/15/17 02:21 07/15/17 02:21 Interpretation: Normal - General General appearance: Appears well, Alert - HEENT Head: Normocephalic, Atraumatic Eyes: Normal Pupils: PERRL - Respiratory Respiratory status: Respiratory distress, Labored, Tachypnea Breath sounds: Rales. No: Nonproductive cough, Rhonchi, Stridor, Wheezing Chest palpation: Normal - Cardiovascular Rhythm: Regular, Tachycardia Heart sounds: Normal auscultation, S1 appreciated, S2 appreciated Murmur: No - Abdominal Inspection: Normal Distension: No distension Bowel sounds: Normal Tenderness: Nontender Organomegaly: No organomegaly - Back Back: Normal, Nontender. No: Tender - Extremities General upper extremity: Normal inspection, Nontender, Normal strength, Normal temperature General lower extremity: Normal inspection, Nontender, Normal strength, Normal temperature - Neurological Neuro grossly intact: Yes Cognition: Normal Orientation: AAOx4 Nikita Coma Scale Eye Opening: Spontaneous [place] Coma Scale Verbal: Oriented Nikita Coma Scale Motor: Obeys Commands Nikita Coma Scale Total: 15 Speech: Normal Motor strength normal: LUE, RUE, LLE, RLE Sensory: Normal - Psychological Associated symptoms: Normal affect, Normal mood - Skin Skin Temperature: Warm Skin Moisture: Dry Skin Color: Normal Course - Re-evaluation Re-evalutation: Patient presented to the emergency department with hypoxia, respiratory distress with a respiratory rate of 40, she has rales on examination, she is very hypertensive. Patient was placed on nasal cannula and her oxygen saturation improved but her respiratory rate did not improve. Patient will be placed on BiPAP, given nitroglycerin, workup pending. Will monitor very closely. 07/15/17 Patient significantly improved on BiPAP therapy. Blood pressure still elevated , giving her her home hydralazine 50 mg (3 times a day), clonidine patch 0.1 mg , and she has nitroglycerin paste. Tachypnea resolved, no longer hypoxic, she states she is comfortable and has no current symptoms. CBC shows mild leukocytosis, nonspecific. No fever. Chest x-ray still pending read although has the appearance of vascular congestion, she has rales on exam, she is due for dialysis, she is very hypertensive, clinical presentation is very consistent with pulmonary vascular congestion not pneumonia. Chemistry finally resulted. Hyperglycemia greater than 600 but anion gap is normal. No acidosis on ABG. Giving 15 units of subQ insulin. Potassium is only mildly elevated at 5.3. We do not have nephrology for patient to have dialysis this morning. Discussed with Dr. Barger, discussed with patient and she requests to go to [place]. 07/15/17 05:05 Called [facility], pending call back 07/15/17 05:[address] Rapp, internal medicine, patient will be accepted for transfer. 07/15/17 07:25 Patient continues to be asymptomatic without any complaints. Introduced to Teri ROSS at bedside. Transport still pending. - Vital Signs Vital signs: Temp Pulse Resp BP Pulse Ox 98.7 F 110 H 24 H 199/83 H 100 07/15/17 06:03 07/15/17 02:21 07/15/17 06:31 07/15/17 06:31 07/15/17 06:31 - Laboratory Result Diagrams: 07/15/17 03:44 07/15/17 03:44 Laboratory results interpreted by me: 07/15/17 07/15/17 07/15/17 02:53 03:44 03:44 WBC 13.5 H RBC 3.05 L Hgb 9.8 L Hct 30.4 L MCV 100 H D RDW 16.4 H Seg Neutrophils % 86.4 H Lymphocytes % 6.1 L Absolute Neutrophils 11.6 H ABG HCO3 19.8 L Sodium 131.4 L Potassium 5.3 H Chloride 95 L Carbon Dioxide 20 L BUN 44 H Creatinine 5.87 H Est GFR ( Amer) 9 L Est GFR (Non-Af Amer) 7 L Glucose 618 H* POC Glucose Calcium 8.1 L Direct Bilirubin 0.5 H Alkaline Phosphatase 236 H Albumin 3.4 L 07/15/17 04:55 WBC RBC Hgb Hct MCV RDW Seg Neutrophils % Lymphocytes % Absolute Neutrophils ABG HCO3 Sodium Potassium Chloride Carbon Dioxide BUN Creatinine Est GFR ( Amer) Est GFR (Non-Af Amer) Glucose POC Glucose > 550 H* Calcium Direct Bilirubin Alkaline Phosphatase Albumin Critical Care Note - Critical Care Note Total time excluding time spent on procedures (mins): 40 - Respiratory distress , hypoxia, pulmonary vascular congestion Comments: Please allow 40 minutes of critical care time for evaluation and treatment of patient with respiratory distress, hypoxia, volume overload, hypertension. Treatment with bipap, nitroglycerin, antihypertensive agents, insulin. Multiple re-evaluations. Consultation and transfer to tertiary care center. Discharge - Discharge Clinical Impression: ESRD (end stage renal disease), Hypoxia, Respiratory distress Hypertension Qualifiers: Hypertension type: unspecified Qualified Code(s): I10 - Essential (primary) hypertension Volume overload Qualifiers: Hypervolemia type: unspecified Qualified Code(s): E87.70 - Fluid overload, unspecified Condition: Stable Disposition: [facility]
[2017-07-15] MEDS ORDERED: CLONIDINE 0.1 MG/24 HR PATCH.TDWK TD ONE (02:53)
[2017-07-15 03:31] LABS: ARTERIAL BLOOD BASE EXCESS -5.2 mmol/L; ARTERIAL BLOOD O2 SATURATION 96.6 % (94-98)
[2017-07-15 04:33] LABS: ABSOLUTE BASOPHILS # (AUTO) 0.1 10^3/uL (0.0-0.2); ABSOLUTE EOSINOPHILS # (AUTO) 0.1 10^3/uL (0.0-0.6); ABSOLUTE LYMPHOCYTES (AUTO) 0.8 10^3/uL (0.5-4.7); ABSOLUTE MONOCYTES (AUTO) 0.8 10^3/uL (0.1-1.4); ABSOLUTE NEUT (AUTO) 11.6 10^3/uL (1.7-8.2); BASOPHILS % (AUTO) 0.8 % (0-2); EOSINOPHILS % (AUTO) 0.5 % (0-6); HEMATOCRIT 30.4 % (36.0-47.0); HEMOGLOBIN 9.8 g/dL (12.0-15.5); LYMPHOCYTES % (AUTO) 6.1 % (13-45); MEAN CORPUSCULAR HGB CONC 32.1 g/dL (32.0-36.0); MEAN CORPUSCULAR VOLUME 100 fl (80-97); MONOCYTES % (AUTO) 6.2 % (3-13); RED BLOOD COUNT 3.05 10^6/uL (3.72-5.28); RED CELL DISTRIBUTION WIDTH 16.4 % (11.5-14.0); SEGMENTED NEUTROPHILS % (AUTO) 86.4 % (42-78); WHITE BLOOD COUNT 13.5 10^3/uL (4.0-10.5)
[2017-07-15 04:45] LABS: ALANINE AMINOTRANSFERASE 28 U/L (9-52); ALBUMIN 3.4 g/dL (3.5-5.0); ALKALINE PHOSPHATASE 236 U/L (38-126); ANION GAP 16 (5-19); ASPARTATE AMINO TRANSFERASE 17 U/L (14-36); BILIRUBIN,DIRECT 0.5 mg/dL (0.0-0.4); BILIRUBIN,TOTAL 0.6 mg/dL (0.2-1.3); BLOOD UREA NITROGEN 44 mg/dL (7-20); CALCIUM 8.1 mg/dL (8.4-10.2); CARBON DIOXIDE 20 mmol/L (22-30); CHLORIDE 95 mmol/L (98-107); CREATININE RESULT 5.87 mg/dL (0.52-1.25); POTASSIUM 5.3 mmol/L (3.6-5.0); SODIUM 131.4 mmol/L (137-145); TOTAL PROTEIN 6.7 g/dL (6.3-8.2)
[2017-07-15 04:57] LABS: GLUCOSE 618 mg/dL (75-110)
[2017-07-15] MEDS ORDERED: HYDRALAZINE HCL 50 MG TABLET PO ONE (05:01)
[2017-07-15] MEDS ORDERED: INSULIN REG, HUMAN 100 UNIT/ML 3 ML VIAL (PYX) SUBCUT ONE (05:02)
--- NOTE | 2017-07-15 05:36 | RADIOLOGY REPORT (SQ) ---
EXAM DESCRIPTION: CHEST SINGLE VIEW CLINICAL HISTORY: shortness of breath COMPARISON: 06/30/2017 FINDINGS: Single frontal view of the chest. The cardiomediastinal silhouette has normal size and contour. Streaky right basilar opacities. Low lung volumes. No pneumothorax or pleural effusion. Leads overlie the chest. No displaced rib fractures identified. Upper abdominal soft tissues are unremarkable. IMPRESSION: 1. Streaky right basilar opacities may be related to low lung volumes and atelectasis however developing pneumonia could produce a similar appearance. Continued radiographic follow-up to resolution recommended.
[2017-07-15 08:14] VITALS: BP 190/80
--- NOTE | 2017-07-15 10:58 | EKG REPORT ---
SEVERITY:- ABNORMAL ECG - SINUS RHYTHM PROBABLE LEFT ATRIAL ABNORMALITY PROBABLE LEFT VENTRICULAR HYPERTROPHY : Confirmed by: Roselyn Ziegler MD 15-Jul-2017 10:57:44
== END 2017-07-15 08:32 | disposition short-term general hospital (02) ==
LOC: ER 02:16
DX: I12.0 Hypertensive chronic kidney disease with stage 5 chronic kidney disease or end stage renal disease (principal); E11.22 Type 2 diabetes mellitus with diabetic chronic kidney disease; E11.65 Type 2 diabetes mellitus with hyperglycemia; N18.6 End stage renal disease; Z99.2 Dependence on renal dialysis; Z79.4 Long term (current) use of insulin; E87.70 Fluid overload, unspecified; R06.02 Shortness of breath; R05 Cough; R00.0 Tachycardia, unspecified; R09.02 Hypoxemia; Z88.0 Allergy status to penicillin
CPT/HCPCS: 93005; 99291; 36415; 82962; 82803; 85025; 80053; 84484; 71010; 93010; 94660; A9270 ×3; J3490; J1815

== ENCOUNTER 2017-11-18 20:45 | Emergency (ER) | payer MEDICARE ==
--- NOTE | 2017-11-18 21:05 | ER Document Report ---
ED General - General Chief Complaint: Chest Pain Stated Complaint: CHEST PAIN Time Seen by Provider: 11/18/17 20:51 Notes: Patient is a 57-year-old female who presents emergency department with a chief complaint of shortness of breath and dialysis. Patient states that she has been doing home dialysis 4-5 times a week. Patient states that she is supposed to do it yesterday but that she was having issues with her dialysate and certain levels being tested on the machine. She spoke with the nurse who made several recommendations and she is going to try again this afternoon. Patient states that she had difficulty accessing her buttonholes on her fistula she also states that she had associated shortness of breath. Patient describes her pain as pressure but with associated chest wall tenderness that is worse with movement. Patient states that this feels consistent when she needs to be dialyzed. She denies any associated cough, dyspnea. admits to some UOP At home patient takes novolog, losartan, valsartan, gabapentin, tresiba TRAVEL OUTSIDE OF THE [place] IN LAST 30 DAYS: No - Related Data Allergies/Adverse Reactions: Penicillins Allergy (Verified 06/30/17 01:27) Past Medical History - Social History Smoking Status: Never Smoker Family History: DM, Hypertension Patient has suicidal ideation: No Patient has homicidal ideation: No - Past Medical History Cardiac Medical History: Reports: Hx Hypertension Endocrine Medical History: Reports: Hx Diabetes Mellitus Type 1, Hx Diabetes Mellitus Type 2 Renal/ Medical History: Reports: Hx End Stage Renal Disease. Denies: Hx Peritoneal Dialysis Past Surgical History: Reports: Other - Hemodialysis vascular access left upper extremity Review of Systems - Review of Systems Constitutional: No symptoms reported EENT: No symptoms reported Cardiovascular: See HPI Respiratory: See HPI, Hurts to breathe Genitourinary: See HPI Musculoskeletal: See HPI Hematologic/Lymphatic: See HPI -: Yes All other systems reviewed and negative Physical Exam - Vital signs Vitals: Resp Pulse Ox 26 H 96 11/18/17 20:51 11/18/17 20:51 - Notes Notes: PHYSICAL EXAM GENERAL: Alert, interacts well. HEAD: Normocephalic, atraumatic. EYES: Pupils equal, round, and reactive to light. Extraocular movements intact. ENT: Oral mucosa moist, tongue midline. NECK: Full range of motion. Supple. Trachea midline. LUNGS: Clear to auscultation bilaterally, no wheezes, rales, or rhonchi. No respiratory distress. HEART: Chest wall diffusely tender with pain reproducible to palpation, Regular rate and rhythm. No murmurs, gallops, or rubs. ABDOMEN: Soft, nondistended, nontender. No guarding, rebound, or rigidity.. Bowel sounds present in all 4 quadrants. EXTREMITIES: Moves all 4 extremities spontaneously. No edema, radial and dorsalis pedis pulses 2/4 bilaterally. No cyanosis. NEUROLOGICAL: Alert and oriented x4. Normal speech. PSYCH: Normal affect, normal mood. SKIN: Warm, dry, normal turgor. No rashes or lesions noted. Course - Re-evaluation Re-evalutation: 11/18/17 22:36 Patient is a 57-year-old female who is hemodynamically stable, no acute distress afebrile. CBC with mild steatosis of 13 patient afebrile. Chemistry with potassium of 4.9, BUN of 109 and creatinine of 8.9. Patient's troponin negative. Chest x-ray without evidence of vascular congestion, physical exam benign for any evidence of rales. Patient vital signs stable evidence of hypoxia, tachycardia, peaked T waves. Patient is very well in appearance, vitals within normal limits. Low clinical suspicion for ACS given clinical history, exam, EKG without ST elevations or depressions, and negative initial troponin. HEART score less than or equal to 3. PE also seems unlikely given clinical history, absence of tachycardia or dyspnea. Well's score of 0. CXR without evidence of pneumothorax or pneumonia. No widened mediastinum. Aortic dissection also seems unlikely given history, symmetric pulses, CXR, and vitals. Discussion with [facility] nephrology Dr. De La Garza states that patient is not needing inpatient criteria for emergent dialysis and recommending symptom management of her chest wall pain given that she is not presenting with ACS and that he will have her follow-up with a home visit nurse tomorrow morning. 11/19/17 01:48 Repeat trop negative. At this time will discharge with return precautions and follow-up recommendations. Verbal discharge instructions given a the bedside and opportunity for questions given. Medication warnings reviewed. Patient is in agreement with this plan and has verbalized understanding of return precautions and the need for primary care follow-up in the next 24-72 hours. - Vital Signs Vital signs: Temp Pulse Resp BP Pulse Ox 99.0 F 92 19 140/81 H 95 11/19/17 01:59 11/18/17 21:01 11/19/17 02:01 11/19/17 02:01 11/19/17 02:01 - Laboratory Result Diagrams: 11/18/17 21:00 11/18/17 21:00 Laboratory results interpreted by me: 11/18/17 11/18/17 21:00 21:00 WBC 13.9 H RBC 2.73 L Hgb 8.4 L Hct 26.0 L RDW 17.3 H Absolute Neutrophils 10.6 H Carbon Dioxide 21 L Anion Gap 21 H BUN 109 H Creatinine 8.96 H Est GFR ( Amer) 6 L Est GFR (Non-Af Amer) 5 L Glucose 127 H Calcium 7.5 L Direct Bilirubin 0.5 H AST 42 H Alkaline Phosphatase 168 H Creatine Kinase 159 H - Diagnostic Test Radiology reviewed: Image reviewed, Reports reviewed - EKG Interpretation by Me EKG shows normal: Sinus rhythm Rate: Normal Rhythm: NSR When compared to previous EKG there are: No significant change Discharge - Discharge Clinical Impression: ESRD (end stage renal disease) Chest pain Qualifiers: Chest pain type: unspecified Qualified Code(s): R07.9 - Chest pain, unspecified Condition: Good Disposition: HOME, SELF-CARE Additional Instructions: Please be sure to touch base with your home dialysis clinic tomorrow morning to troubleshoot issues are having at home with her home dialysis. Please follow- up with your facility maintenance helper as scheduled. Please return to the emergency department if you have difficulty performing dialysis at home. NORMAL EXAM AND WORKUP: At this time, your examination and workup show no significant abnormality. No significant abnormal physical findings were noted. All laboratory, EKG, and imaging (x-ray, CT scans, ultrasound) studies that were ordered show no significant abnormality. Although your examination and all studies that were ordered showed no significant abnormal finding, there are no examinations and no studies that are 100% accurate. There is always the possibility that some abnormality could exist and not be detected with physical examination or within the limits and capabilities of laboratory and other studies. You should return or follow up as you were instructed on your visit today for further evaluation if your symptoms do not resolve. CHEST WALL PAIN: Your chest pain may be coming from the chest wall. This is often caused by straining the muscles or joints in the chest during physical activity, direct trauma, coughing, or vigorous vomiting. Persons with arthritis are especially prone to this type of pain, due to inflammation of the cartilage joints near the breast bone. Occasionally, no cause can be found. Rest from strenuous physical activity. This kind of chest pain is usually made worse by movement of the chest. Depending on the symptoms, we may prescribe medicine for pain, muscle relaxation, and antiinflammatory effects. If the pain is new, and seems to be due to muscle strain, cold packs can help. Otherwise, apply gentle warmth to the painful area for 15 minutes every hour or two. You should call contact the doctor immediately if things change. Further evaluation is needed if you develop a fever or cough, if the nature of the pain changes, or if you become short of breath. FOLLOW-UP CARE: If you have been referred to a physician for follow-up care, call the physician s office for an appointment as you were instructed or within the next two days. If you experience worsening or a significant change in your symptoms, notify the physician immediately or return to the Emergency Department at any time for re-evaluation. Referrals: TANMAY LUCAS MD [NO LOCAL MD] - Follow up tomorrow
[2017-11-18 21:19] LABS: ABSOLUTE BASOPHILS # (AUTO) 0.1 10^3/uL (0.0-0.2); ABSOLUTE EOSINOPHILS # (AUTO) 0.3 10^3/uL (0.0-0.6); ABSOLUTE LYMPHOCYTES (AUTO) 2.2 10^3/uL (0.5-4.7); ABSOLUTE MONOCYTES (AUTO) 0.8 10^3/uL (0.1-1.4); ABSOLUTE NEUT (AUTO) 10.6 10^3/uL (1.7-8.2); BASOPHILS % (AUTO) 0.9 % (0-2); EOSINOPHILS % (AUTO) 1.9 % (0-6); HEMOGLOBIN 8.4 g/dL (12.0-15.5); LYMPHOCYTES % (AUTO) 15.6 % (13-45); MEAN CORPUSCULAR HEMOGLOBIN 30.7 pg (27.0-33.4); MEAN CORPUSCULAR HGB CONC 32.2 g/dL (32.0-36.0); MEAN CORPUSCULAR VOLUME 95 fl (80-97); MONOCYTES % (AUTO) 5.6 % (3-13); PLATELET COUNT 248 10^3/uL (150-450); RED BLOOD COUNT 2.73 10^6/uL (3.72-5.28); RED CELL DISTRIBUTION WIDTH 17.3 % (11.5-14.0); TOTAL CELLS COUNTED % (AUTO) 100 %; WHITE BLOOD COUNT 13.9 10^3/uL (4.0-10.5)
[2017-11-18 21:36] LABS: ALANINE AMINOTRANSFERASE 45 U/L (9-52); ALBUMIN 3.6 g/dL (3.5-5.0); ALKALINE PHOSPHATASE 168 U/L (38-126); ASPARTATE AMINO TRANSFERASE 42 U/L (14-36); BILIRUBIN,DIRECT 0.5 mg/dL (0.0-0.4); BILIRUBIN,TOTAL 0.5 mg/dL (0.2-1.3); BLOOD UREA NITROGEN 109 mg/dL (7-20); CALCIUM 7.5 mg/dL (8.4-10.2); CREATINE KINASE 159 U/L (30-135); GLUCOSE 127 mg/dL (75-110); POTASSIUM 4.9 mmol/L (3.6-5.0); TOTAL PROTEIN 7.1 g/dL (6.3-8.2)
[2017-11-18 21:41] LABS: CARBON DIOXIDE 21 mmol/L (22-30); CHLORIDE 99 mmol/L (98-107); SODIUM 140.9 mmol/L (137-145)
[2017-11-18 21:42] LABS: ANION GAP 21 (5-19)
[2017-11-18 21:48] LABS: CREATINE KINASE MB 4.51 ng/mL (<4.55); TROPONIN I < 0.012 ng/mL
--- NOTE | 2017-11-18 21:56 | RADIOLOGY REPORT (SQ) ---
EXAM DESCRIPTION: CHEST SINGLE VIEW COMPLETED DATE/TIME: 11/18/2017 9:45 pm REASON FOR STUDY: chest pain COMPARISON: 07/15/2017 EXAM PARAMETERS: NUMBER OF VIEWS: One view. TECHNIQUE: Single frontal radiographic view of the chest acquired. RADIATION DOSE: NA LIMITATIONS: None. FINDINGS: LUNGS AND PLEURA: No opacities, masses or pneumothorax. No pleural effusion. MEDIASTINUM AND HILAR STRUCTURES: No masses. Contour normal. HEART AND VASCULAR STRUCTURES: Heart normal in size. Normal vasculature. BONES: No acute findings. HARDWARE: None in the chest. OTHER: No other significant finding. IMPRESSION: NO ACUTE RADIOGRAPHIC FINDING IN THE CHEST. TECHNICAL DOCUMENTATION: JOB ID: [id number] [employer]- All Rights Reserved Reading location - IP/workstation name: [email or web address]
[2017-11-18] MEDS ORDERED: MORPHINE SULFATE 10 MG/ML INJ IV ONE (22:31)
[2017-11-19 02:04] VITALS: BP 140/81
--- NOTE | 2017-11-19 09:15 | EKG REPORT ---
SEVERITY:- ABNORMAL ECG - SINUS RHYTHM LEFT ATRIAL ABNORMALITY : Confirmed by: Deng Holt 19-Nov-2017 09:13:50
== END 2017-11-19 02:20 | disposition home or self-care (01) ==
LOC: ER 20:45
DX: I12.0 Hypertensive chronic kidney disease with stage 5 chronic kidney disease or end stage renal disease (principal); E11.22 Type 2 diabetes mellitus with diabetic chronic kidney disease; N18.6 End stage renal disease; Z99.2 Dependence on renal dialysis; Z79.4 Long term (current) use of insulin; Z79.899 Other long term (current) drug therapy; R06.02 Shortness of breath; R07.89 Other chest pain
CPT/HCPCS: 93005; 99285; 96374; 36415; 82553; 82550; 85025; 80053; 84484; 71045; 93010; J2270

== ENCOUNTER 2018-02-06 17:55 | Emergency (ER) | payer MEDICARE ==
--- NOTE | 2018-02-06 18:30 | ER Document Report ---
ED General - General Stated Complaint: RESPIRATORY DISTRESS Time Seen by Provider: 02/06/18 18:18 Notes: Patient is a 57-year-old female with a past medical history of hypertension, end -stage renal disease with home hemodialysis therapy who presents with shortness of breath. The patient states that she was 15 minutes into her Friday dialysis session when she became acutely short of breath. She states that shortness of breath was persistent and only improved after being placed on BiPAP by EMS. She states that since that time she has had significant improvement in her shortness of breath. She denies any additional symptoms. She denies any missed dialysis sessions. She has not contacted her javascript front end developer regarding today's concerns. She denies a history of similar symptoms in the past but has had episodes of chest discomfort during her dialysis sessions. She denies any associated fever or constitutional symptoms. TRAVEL OUTSIDE OF THE [place] IN LAST 30 DAYS: No - Related Data Allergies/Adverse Reactions: Penicillins Allergy (Verified 06/30/17 01:27) Past Medical History - General Information source: Patient - Social History Smoking Status: Never Smoker Frequency of alcohol use: None Drug Abuse: None Lives with: Alone Family History: DM, Hypertension - Past Medical History Cardiac Medical History: Reports: Hx Hypertension Endocrine Medical History: Reports: Hx Diabetes Mellitus Type 1, Hx Diabetes Mellitus Type 2 Renal/ Medical History: Reports: Hx End Stage Renal Disease. Denies: Hx Peritoneal Dialysis Past Surgical History: Reports: Other - Hemodialysis vascular access left upper extremity Review of Systems - Review of Systems Notes: Constitutional: Negative for fever. HENT: Negative for sore throat. Eyes: Negative for visual changes. Cardiovascular: Negative for chest pain. Respiratory: Positive for shortness of breath. Gastrointestinal: Negative for abdominal pain, vomiting or diarrhea. Genitourinary: Negative for dysuria. Musculoskeletal: Negative for back pain. Skin: Negative for rash. Neurological: Negative for headaches, weakness or numbness. 10 point ROS negative except as marked above and in HPI. Physical Exam - Vital signs Vitals: Temp Pulse Resp BP Pulse Ox 100.6 F H 107 H 28 H 204/71 H 94 02/06/18 18:00 02/06/18 18:00 02/06/18 18:00 02/06/18 18:00 02/06/18 18:00 Interpretation: Hypertensive Notes: PHYSICAL EXAMINATION: GENERAL: Appears mildly uncomfortable but no acute distress HEAD: Atraumatic, normocephalic. EYES: Pupils equal round and reactive to light, extraocular movements intact, sclera anicteric, conjunctiva are normal. ENT: nares patent, oropharynx clear without exudates. Moist mucous membranes. NECK: Normal range of motion, supple without lymphadenopathy LUNGS: Scattered rales throughout. Mild tachypnea but no overt respiratory distress HEART: Regular rate and rhythm without murmurs ABDOMEN: Soft, nontender, normoactive bowel sounds. No guarding, no rebound. No masses appreciated. EXTREMITIES: Normal range of motion, no pitting or edema. No cyanosis. NEUROLOGICAL: No focal neurological deficits. Moves all extremities spontaneously and on command. PSYCH: Normal mood, normal affect. SKIN: Warm, Dry, normal turgor, no rashes or lesions noted. Course - Re-evaluation Re-evalutation: 02/06/18 18:28 Patient presents apparently having been in respiratory distress prior to arrival but is breathing on BiPAP with normal effort to my assessment approximately 22 breaths per minutes, 100% on 30% FiO2. Patient was apparently dialyzing herself for approximately 15 minutes and became acutely short of breath. Noted to be hypoxic by EMS into the mid 70s and at baseline does not have a supplemental oxygen dependency. Patient denies any acute complaints at the time of my assessment. Her initial blood pressure for EMS was noted to be markedly elevated in the 220s systolic although has come into much closer normal range at 163 on 113 at the time of my assessment. Of note, patient states this is approximately average for her normal blood pressure. Proceed with chest x-ray, labs, reassess. Suspect volume overload in the setting of end -stage renal disease and need acute dialysis. 02/06/18 20:32 Patient is continued to tolerate BiPAP without any difficulty, maintaining saturations of 99-100% on 30% FiO2. We do not have any availability of nephrology or dialysis through the weekend. I contacted and over [facility] and requested transfer as patient does have pulmonary edema, vascular congestion and is currently BiPAP dependent to maintain a normal work of breathing and oxygenation. 02/06/18 20:58 Patient has been accepted by the hospitalist at [facility] . I have updated the patient on the care plan and she is in agreement. She remains hemodynamically within acceptable limits without significant hypertension currently 146 on 66 and saturating 99% on 30% FiO2. 02/07/18 00:56 Transport has arrived and patient is appropriate for transfer at this time. - Vital Signs Vital signs: Temp Pulse Resp BP Pulse Ox 98.3 F 107 H 17 146/77 H 100 02/06/18 21:12 02/06/18 18:00 02/06/18 23:30 02/06/18 23:30 02/06/18 23:30 - Laboratory Result Diagrams: 02/06/18 18:53 02/06/18 18:53 Laboratory results interpreted by me: 02/06/18 02/06/18 02/06/18 18:53 18:53 18:53 WBC 16.9 H RBC 2.67 L Hgb 8.0 L Hct 24.5 L RDW 16.7 H Seg Neutrophils % 87.8 H Lymphocytes % 6.2 L Absolute Neutrophils 14.9 H Sodium 136.5 L Chloride 95 L Carbon Dioxide 21 L Anion Gap 21 H BUN 66 H Creatinine 8.64 H Est GFR ( Amer) 6 L Est GFR (Non-Af Amer) 5 L Glucose 315 H Calcium 7.9 L Direct Bilirubin 0.6 H AST 11 L NT-Pro-B Natriuret Pep 48008 H - Diagnostic Test Radiology reviewed: Image reviewed, Reports reviewed Radiology results interpreted by me: 02/06/18 20:59 Chest x-ray: Vascular congestion, pulmonary edema and cardiomegaly - EKG Interpretation by Me Additional EKG results interpreted by me: 02/06/18 20:59 Sinus rhythm. Rate 89. No ST elevations or depressions. QTC is 487. Discharge - Discharge Clinical Impression: ESRD (end stage renal disease), Hypoxia, Pulmonary vascular congestion Condition: Fair Disposition: [facility]
--- NOTE | 2018-02-06 18:57 | RADIOLOGY REPORT (SQ) ---
EXAM DESCRIPTION: CHEST SINGLE VIEW COMPLETED DATE/TIME: 02/06/2018 6:36 pm REASON FOR STUDY: sob COMPARISON: Chest x-ray 11/18/2017, 07/15/2017. EXAM PARAMETERS: NUMBER OF VIEWS: One view. TECHNIQUE: Single frontal radiographic view of the chest acquired. RADIATION DOSE: NA LIMITATIONS: None. FINDINGS: LUNGS AND PLEURA: There is blunting of the costophrenic angles, suggestive of small pleura l effusions. There are bibasilar airspace opacities. No pneumothorax. MEDIASTINUM AND HILAR STRUCTURES: No masses. Contour normal. HEART AND VASCULAR STRUCTURES: The heart is mildly enlarged. There is mild central vascular congesti on. BONES: No acute findings. HARDWARE: None in the chest. IMPRESSION: Mild cardiomegaly and central vascular congestion. Small bilateral pleural effusions an d bibasilar airspace opacities, may represent atelectasis or pneumonia. TECHNICAL DOCUMENTATION: JOB ID: [id number] [employer]- All Rights Reserved Reading location - IP/workstation name: [email or web address]
[2018-02-06 19:07] LABS: ABSOLUTE BASOPHILS # (AUTO) 0.1 10^3/uL (0.0-0.2); ABSOLUTE EOSINOPHILS # (AUTO) 0.1 10^3/uL (0.0-0.6); ABSOLUTE LYMPHOCYTES (AUTO) 1.1 10^3/uL (0.5-4.7); ABSOLUTE MONOCYTES (AUTO) 0.8 10^3/uL (0.1-1.4); ABSOLUTE NEUT (AUTO) 14.9 10^3/uL (1.7-8.2); BASOPHILS % (AUTO) 0.7 % (0-2); EOSINOPHILS % (AUTO) 0.4 % (0-6); HEMATOCRIT 24.5 % (36.0-47.0); LYMPHOCYTES % (AUTO) 6.2 % (13-45); MEAN CORPUSCULAR HGB CONC 32.7 g/dL (32.0-36.0); MEAN CORPUSCULAR VOLUME 92 fl (80-97); MONOCYTES % (AUTO) 4.9 % (3-13); PLATELET COUNT 201 10^3/uL (150-450); RED BLOOD COUNT 2.67 10^6/uL (3.72-5.28); RED CELL DISTRIBUTION WIDTH 16.7 % (11.5-14.0); SEGMENTED NEUTROPHILS % (AUTO) 87.8 % (42-78); TOTAL CELLS COUNTED % (AUTO) 100 %; WHITE BLOOD COUNT 16.9 10^3/uL (4.0-10.5)
[2018-02-06 19:08] LABS: VENOUS BLOOD HCO3 21.5 mmol/L (20-32); VENOUS BLOOD PCO2 40.4 mmHg (35-63); VENOUS BLOOD PH 7.34 (7.30-7.42)
[2018-02-06 19:32] LABS: ALANINE AMINOTRANSFERASE 17 U/L (9-52); ALBUMIN 3.7 g/dL (3.5-5.0); ALKALINE PHOSPHATASE 112 U/L (38-126); ASPARTATE AMINO TRANSFERASE 11 U/L (14-36); BILIRUBIN,DIRECT 0.6 mg/dL (0.0-0.4); BILIRUBIN,TOTAL 0.8 mg/dL (0.2-1.3); BLOOD UREA NITROGEN 66 mg/dL (7-20); CALCIUM 7.9 mg/dL (8.4-10.2); GLUCOSE 315 mg/dL (75-110); POTASSIUM 4.5 mmol/L (3.6-5.0); TOTAL PROTEIN 7.3 g/dL (6.3-8.2)
[2018-02-06 19:37] LABS: CARBON DIOXIDE 21 mmol/L (22-30); CHLORIDE 95 mmol/L (98-107); SODIUM 136.5 mmol/L (137-145)
[2018-02-06 19:38] LABS: ANION GAP 21 (5-19)
[2018-02-06 19:45] LABS: TROPONIN I 0.049 ng/mL
[2018-02-06] MEDS ORDERED: NITROGLYCERIN 2.5 MG (0.1 MG/HR) PATCH.TD24 TD ONE (20:54)
[2018-02-07 06:34] VITALS: BP 133/69
--- NOTE | 2018-02-07 09:45 | EKG REPORT ---
SEVERITY:- ABNORMAL ECG - SINUS RHYTHM LEFT ATRIAL ABNORMALITY PROBABLE LEFT VENTRICULAR HYPERTROPHY BORDERLINE PROLONGED QT INTERVAL : Confirmed by: Deng Holt 07-Feb-2018 09:44:16
== END 2018-02-07 01:05 | disposition short-term general hospital (02) ==
LOC: ER 17:55
DX: I12.0 Hypertensive chronic kidney disease with stage 5 chronic kidney disease or end stage renal disease (principal); E11.22 Type 2 diabetes mellitus with diabetic chronic kidney disease; N18.6 End stage renal disease; J81.1 Chronic pulmonary edema; R06.02 Shortness of breath; I51.7 Cardiomegaly; Z99.2 Dependence on renal dialysis; Z88.0 Allergy status to penicillin
CPT/HCPCS: 93005; 99285; 36415; 87040; 85025; 80053; 84484; 82803; 83880; 71045; 93010; 94660; J3490

== ENCOUNTER 2018-05-20 08:54 | Emergency (ER) | payer MEDICARE, MEDICAID ==
[2018-05-20] MEDS ORDERED: OXYCODONE-ACETAMINOPHEN 5-325 MG TABLET PO ONE (09:20)
--- NOTE | 2018-05-20 09:47 | ER Document Report ---
ED Medical Screen (RME) - General Chief Complaint: Fall Injury Stated Complaint: FALL/LEFT KNEE PAIN Time Seen by Provider: 05/20/18 09:20 Notes: 58 years old female yesterday fell on her knee and injured presents today with pain and swelling over the left knee. Unable to do any movements. TRAVEL OUTSIDE OF THE [place] IN LAST 30 DAYS: No - Related Data Allergies/Adverse Reactions: Penicillins Allergy (Verified 05/20/18 08:55) Past Medical History - Social History Chew tobacco use (# tins/day): No Frequency of alcohol use: None Drug Abuse: None - Past Medical History Cardiac Medical History: Reports: Hx Hypertension Endocrine Medical History: Reports: Hx Diabetes Mellitus Type 1, Hx Diabetes Mellitus Type 2 Renal/ Medical History: Reports: Hx End Stage Renal Disease. Denies: Hx Peritoneal Dialysis Past Surgical History: Reports: Hx Appendectomy, Hx Cholecystectomy, Hx Orthopedic Surgery - feet, Hx Tubal Ligation, Hx Vascular Surgery - fistula upper arm, Other - Hemodialysis vascular access left upper extremity - Immunizations History of Influenza Vaccine for 04/2017 - 09/2017 Season: Refused Physical Exam - Vital signs Vitals: Temp Pulse Resp BP Pulse Ox 97.7 F 89 18 180/89 H 100 05/20/18 09:31 05/20/18 09:31 05/20/18 09:31 05/20/18 09:31 05/20/18 09:31 Course - Vital Signs Vital signs: Temp Pulse Resp BP Pulse Ox 97.7 F 89 18 180/89 H 100 05/20/18 09:31 05/20/18 09:31 05/20/18 09:31 05/20/18 09:31 05/20/18 09:31
--- NOTE | 2018-05-20 09:59 | RADIOLOGY REPORT (SQ) ---
EXAM DESCRIPTION: KNEE LEFT 4 VIEW COMPLETED DATE/TIME: 05/20/2018 9:52 am REASON FOR STUDY: injury COMPARISON: None. NUMBER OF VIEWS: Three views. TECHNIQUE: AP, lateral, and oblique radiographic images acquired of the left knee. LIMITATIONS: None. FINDINGS: MINERALIZATION: Normal. BONES: Transverse fracture of the patella with approximately 1 cm separation of the fracture fragment s. JOINT: Suprapatellar joint effusion. Faint chondrocalcinosis. SOFT TISSUES: Prepatellar soft tissue swelling. No radio-opaque foreign body. OTHER: No other significant finding. IMPRESSION: TRANSVERSE FRACTURE OF THE PATELLA. TECHNICAL DOCUMENTATION: JOB ID: [id number] [employer]- All Rights Reserved Reading location - IP/workstation name: [email or web address]
--- NOTE | 2018-05-20 10:08 | ER Document Report ---
HPI - HPI Patient complains to provider of: Left knee injury Onset: Yesterday Onset/Duration: Sudden Quality of pain: Achy Pain Level: 5 Context: Patient states that she fell while walking on pavement yesterday landing on her knee. Patient complains of persistent left knee pain. Associated Symptoms: Other - Left knee pain. denies: Fever, Nausea, Vomiting Exacerbated by: Standing, Movement, Walking Relieved by: Denies Similar symptoms previously: No Recently seen / treated by doctor: No - ROS ROS below otherwise negative: Yes Systems Reviewed and Negative: Yes All other systems reviewed and negative - CONSTITUTIONAL Constitutional: DENIES: Fever, Chills - REPRODUCTIVE Reproductive: DENIES: : - MUSCULOSKELETAL Musculoskeletal: REPORTS: Extremity pain - left knee, Swelling - DERM Skin Color: Normal Skin Problems: Abrasion Past Medical History - General Information source: Patient - Social History Smoking Status: Never Smoker Chew tobacco use (# tins/day): No Frequency of alcohol use: None Drug Abuse: None Occupation: None Lives with: Family Family History: DM, Hypertension Patient has suicidal ideation: No Patient has homicidal ideation: No - Past Medical History Cardiac Medical History: Reports: Hx Hypertension Endocrine Medical History: Reports: Hx Diabetes Mellitus Type 1, Hx Diabetes Mellitus Type 2 Renal/ Medical History: Reports: Hx End Stage Renal Disease, Hx Hemodialysis. Denies: Hx Peritoneal Dialysis Past Surgical History: Reports: Hx Appendectomy, Hx Cholecystectomy, Hx Orthopedic Surgery - feet, Hx Tubal Ligation, Hx Vascular Surgery - fistula upper arm, Other - Hemodialysis vascular access left upper extremity Vertical Provider Document - CONSTITUTIONAL Agree With Documented VS: Yes Exam Limitations: No Limitations General Appearance: WD/WN, No Apparent Distress - INFECTION CONTROL TRAVEL OUTSIDE OF THE [place] IN LAST 30 DAYS: No - HEENT HEENT: Atraumatic, Normocephalic - NECK Neck: Normal Inspection - RESPIRATORY Respiratory: No Respiratory Distress - CARDIOVASCULAR Pulses: Normal: Dorsalis pedis - MUSCULOSKELETAL/EXTREMETIES Musculoskeletal/Extremeties: MAEW, Tender - Left knee effusion, left knee tenderness over patella with superficial overlying abrasions. No laxity with varus or valgus maneuvers., Edema - NEURO Level of Consciousness: Awake, Alert, Appropriate Motor/Sensory: No Motor Deficit - DERM Integumentary: Warm, Dry Course - Re-evaluation Re-evalutation: 05/20/18 10:[address] Mas, awaiting return call for consultation. 05/20/18 10:[address] Mas regarding patient presentation and x-ray report. Recommends placing patient in a padded Jono and knee immobilizer and having patient follow-up in the office today or tomorrow. - Vital Signs Vital signs: Temp Pulse Resp BP Pulse Ox 97.7 F 89 18 180/89 H 100 05/20/18 09:31 05/20/18 09:31 05/20/18 09:31 05/20/18 09:31 05/20/18 09:31 - Diagnostic Test Radiology reviewed: Image reviewed, Reports reviewed Procedures - Immobilization Left Knee Pre-Proc Neuro Vasc Exam: Normal Immobilizer type: Jono wrap, Knee immobilizer Performed by: PCT Post-Proc Neuro Vasc Exam: Normal Alignment checked and good: Yes Discharge - Discharge Clinical Impression: Left patella fracture Qualifiers: Encounter type: initial encounter Fracture type: closed Fracture morphology: transverse Fracture alignment: displaced Qualified Code(s): S82.032A - Displaced transverse fracture of left patella, initial encounter for closed fracture Condition: Stable Disposition: HOME, SELF-CARE Instructions: Fractured Patella ([facility]), Ice & Elevation ([facility]), Knee Immobilizing Splint ([facility]), Oral Narcotic Medication ([facility]) Additional Instructions: Return immediately for any new or worsening symptoms Followup with your primary care provider, call tomorrow to make a followup appointment Follow-up with Dr. Mas today or tomorrow. Call his office once you are discharged to determine the best time to see him. You will likely need surgery to repair your injury Prescriptions: Oxycodone HCl/Acetaminophen [Percocet 5-325 mg Tablet] 1 tab PO ASDIR PRN #15 tablet PRN Reason: Referrals: MONTSE MAS MD [ACTIVE STAFF] - 05/20/18
[2018-05-20] MEDS ORDERED: DIPH/PERTUSS(ACELL)/TETANUS VAC/PF 0.5 ML SYR (>=10YO) IM ONE (10:09)
[2018-05-20 11:25] VITALS: BP 218/75
== END 2018-05-20 11:26 | disposition home or self-care (01) ==
LOC: ER 08:54
DX: S82.032A Displaced transverse fracture of left patella, initial encounter for closed fracture (principal); W19.XXXA Unspecified fall, initial encounter; Y93.01 Activity, walking, marching and hiking; I12.0 Hypertensive chronic kidney disease with stage 5 chronic kidney disease or end stage renal disease; E11.22 Type 2 diabetes mellitus with diabetic chronic kidney disease; N18.6 End stage renal disease; Z99.2 Dependence on renal dialysis
CPT/HCPCS: 99283; 90471; 73564; 90715; L1830; A9270

== ENCOUNTER 2018-05-25 09:32 | Day surgery (SDC) | payer MEDICARE, MEDICAID ==
[~2018-05-25 09:32] MED LIST: CLINDAMYCIN 600 MG/D5W RTU 600 MG/50 ML RTUPB IV PRN
[2018-05-25 10:11] LABS: HEMATOCRIT 24.5 % (36.0-47.0); HEMOGLOBIN 8.1 g/dL (12.0-15.5); MEAN CORPUSCULAR HEMOGLOBIN 29.2 pg (27.0-33.4); MEAN CORPUSCULAR HGB CONC 33.2 g/dL (32.0-36.0); MEAN CORPUSCULAR VOLUME 88 fl (80-97); PLATELET COUNT 385 10^3/uL (150-450); RED BLOOD COUNT 2.78 10^6/uL (3.72-5.28); RED CELL DISTRIBUTION WIDTH 18.8 % (11.5-14.0); WHITE BLOOD COUNT 8.8 10^3/uL (4.0-10.5)
[2018-05-25 10:12] LABS: APPEARANCE,URINE CLOUDY; BILIRUBIN,URINE NEGATIVE (NEGATIVE); GLUCOSE, URINE >=500 mg/dL (NEGATIVE); KETONES,URINE NEGATIVE (NEGATIVE); LEUKOCYTE ESTERASE,URINE NEGATIVE (NEGATIVE); NITRITE,URINE NEGATIVE (NEGATIVE); PROTEIN,URINE >=500 mg/dL (NEGATIVE); URINE SPECIFIC GRAVITY 1.025; UROBILINOGEN,URINE NEGATIVE mg/dL (<2.0)
[2018-05-25 10:17] LABS: COLOR,URINE YELLOW
[2018-05-25 10:33] LABS: BLOOD UREA NITROGEN 23 mg/dL (7-20); CALCIUM 8.8 mg/dL (8.4-10.2); CHLORIDE 89 mmol/L (98-107); GLUCOSE 173 mg/dL (75-110); POTASSIUM 3.4 mmol/L (3.6-5.0)
[2018-05-25 10:38] LABS: CARBON DIOXIDE 27 mmol/L (22-30); SODIUM 136.5 mmol/L (137-145)
[2018-05-25 10:40] LABS: ANION GAP 21 (5-19)
[2018-05-25] MEDS ORDERED: CLINDAMYCIN 600 MG/D5W RTU 600 MG/50 ML RTUPB IV ONE (11:10)
[2018-05-25] MEDS ORDERED: FENTANYL CITRATE INJ/PF 100 MCG/2 ML AMPUL ONE (11:19)
[2018-05-25] MEDS ORDERED: MIDAZOLAM 2 MG/2 ML INJ ONE (11:19)
[2018-05-25] MEDS ORDERED: PROPOFOL INJ 200 MG/20 ML VIAL IV ONE (11:20)
[2018-05-25] MEDS ORDERED: EPHEDRINE SULFATE INJ 50 MG/1 ML AMPULE ONE (11:20)
[2018-05-25] MEDS ORDERED: ONDANSETRON HCL INJ/PF 4 MG/2 ML SDV ONE (11:20)
[2018-05-25] MEDS ORDERED: ACETAMINOPHEN 1,000 MG/100 ML RTUPB IV ONE (11:20)
--- NOTE | 2018-05-25 11:24 | RADIOLOGY REPORT (SQ) ---
EXAM DESCRIPTION: CHEST SINGLE VIEW COMPLETED DATE/TIME: 05/25/2018 10:18 am REASON FOR STUDY: PREOP COMPARISON: 02/06/2018. EXAM PARAMETERS: NUMBER OF VIEWS: One view. TECHNIQUE: Single frontal radiographic view of the chest acquired. RADIATION DOSE: NA LIMITATIONS: None. FINDINGS: LUNGS AND PLEURA: Small right pleural effusion has increased slightly since the previous s tudy. There is also suggestion of a nodular density in the right lung base. The remainder the right lung is clear as is the left lung. MEDIASTINUM AND HILAR STRUCTURES: No masses. Contour normal. HEART AND VASCULAR STRUCTURES: Heart normal in size. Normal vasculature. BONES: No acute findings. HARDWARE: None in the chest. OTHER: No other significant finding. IMPRESSION: SMALL RIGHT PLEURAL EFFUSION HAS INCREASED SLIGHTLY SINCE THE PREVIOUS STUDY. POSSIBLE NODULE IN THE RIGHT LUNG BASE. RECOMMEND FOLLOW-UP CT OF THE CHEST. TECHNICAL DOCUMENTATION: JOB ID: [id number] [employer]- All Rights Reserved Reading location - IP/workstation name: [email or web address]
[2018-05-25] MEDS ORDERED: BUPIVACAINE HCL 0.25% /EPINEPHRINE INJ/PF 30 ML SDV ONE (11:29)
[2018-05-25] MEDS ORDERED: BUPIVACAINE HCL/DEX-WATER/PF 15 MG/2 ML AMPULE ONE (11:55)
[2018-05-25] MEDS ORDERED: DIPHENHYDRAMINE HCL 50 MG/ML VIAL IV PRN (12:57)
[2018-05-25] MEDS ORDERED: FENTANYL CITRATE INJ/PF 100 MCG/2 ML AMPUL IV PRN ×3 (12:57)
[2018-05-25] MEDS ORDERED: MORPHINE SULFATE 10 MG/ML INJ IV PRN (12:57)
[2018-05-25] MEDS ORDERED: ONDANSETRON HCL INJ/PF 4 MG/2 ML SDV IV PRN (12:57)
[2018-05-25] MEDS ORDERED: PROMETHAZINE HCL INJ 25 MG/1 ML VIAL IV PRN ×2 (12:57)
[2018-05-25] MEDS ORDERED: MEPERIDINE HCL/PF INJ 25 MG/1 ML DISP.SYRIN IV PRN (12:57)
--- NOTE | 2018-05-25 13:19 | EKG REPORT ---
SEVERITY:- ABNORMAL ECG - SINUS RHYTHM LEFT ATRIAL ABNORMALITY PROBABLE LVH WITH SECONDARY REPOL ABNRM : Confirmed by: Hrary Vogel MD 25-May-2018 13:18:24
--- NOTE | 2018-05-25 13:21 | Operative Report ---
Operative Report DATE OF SURGERY: 05/25/18 PREOPERATIVE DIAGNOSIS: Left patella fracture OPERATION: Open reduction internal fixation left patella fracture SURGEON: MONTSE MAS ANESTHESIA: Spinal ESTIMATED BLOOD LOSS: Minimal PROCEDURE: With the patient supine Afrin table left lower extremities prepped and draped in sterile fashion. Limb is elevated for exsanguination tourniquet inflated 280 torr. Longitudinal incisions made over the midline of the patella and sharp dissection was carried incision down to the parapatellar retinaculum. There is a transverse fracture. The transverse fracture was opened so that each fracture face was looked at directly. Steinmann pins were placed across the fracture site from proximal to distal. Fracture reduction is assessed fluoroscopically and felt to be adequate. Subsequently #5 FiberWire was used to create a emrowv-ol-agiew around the existing K wires. The K wires were then cut and buried into the bone. The wound is irrigated. Is closed in layers interrupted Vicryl followed by fannie. A sterile compressive dressing and knee immobilizer applied and the patient's return to PACU in satisfactory condition.
--- NOTE | 2018-05-25 13:24 | Discharge Summary ---
Discharge Summary (SDC) - Discharge Final Diagnosis: Left patella fracture Date of Surgery: 05/25/18 Discharge Date: 05/25/18 Condition: Good Treatment or Instructions: Touchdown weightbearing restriction left lower extremity Prescriptions: Oxycodone HCl 5 mg PO Q6 #40 tablet Referrals: IRENE SAMANIEGO MD [Primary Care Provider] - Discharge Diet: As Tolerated, Regular Respiratory Treatments at Home: Deep Breathing/Coughing Discharge Activity: Balance Activity w/Rest, No Driving, No tub bath Home Care Assistance: None Needed Report the Following to Your Physician Immediately: Shortness of Breath, Fever over 101 Degrees, Drainage-Foul Smelling
[2018-05-25] MEDS ORDERED: ONDANSETRON 4 MG TAB.RAPDIS SL PRN (13:51)
[2018-05-25] MEDS ORDERED: OXYCODONE HCL IR 5 MG TABLET PO PRN (13:51)
[2018-05-25] MEDS ORDERED: TRAMADOL HCL 50 MG TABLET ONE (15:22)
[2018-05-25] MEDS ORDERED: CARVEDILOL 12.5 MG TABLET PO ONE (16:00)
--- NOTE | 2018-05-25 16:21 | RADIOLOGY REPORT (SQ) ---
EXAM DESCRIPTION: NO CHG FLUORO; KNEE LEFT 2 VIEWS COMPLETED DATE/TIME: 05/25/2018 2:52 pm REASON FOR STUDY: ORIF LEFT PATELLA ASST WITH FLUORO IN OR COMPARISON: None. FLUOROSCOPY TIME: No recorded fluoro time 3 Images saved to PACS LIMITATIONS: None. PROCEDURE: ORIF left patella FINDINGS: 3 images min fluoro document placement of wires in the patella. IMPRESSION: ORIF left patella. Refer to operative note for further information. COMMENT: PQRS 6045F: Fluoroscopy time of the procedure is documented in the report. TECHNICAL DOCUMENTATION: JOB ID: [id number] [employer]- All Rights Reserved Reading location - IP/workstation name: [email or web address]
--- NOTE | 2018-05-25 16:21 | RADIOLOGY REPORT (SQ) ---
EXAM DESCRIPTION: NO CHG FLUORO; KNEE LEFT 2 VIEWS COMPLETED DATE/TIME: 05/25/2018 2:52 pm REASON FOR STUDY: ORIF LEFT PATELLA ASST WITH FLUORO IN OR COMPARISON: None. FLUOROSCOPY TIME: No recorded fluoro time 3 Images saved to PACS LIMITATIONS: None. PROCEDURE: ORIF left patella FINDINGS: 3 images min fluoro document placement of wires in the patella. IMPRESSION: ORIF left patella. Refer to operative note for further information. COMMENT: PQRS 6045F: Fluoroscopy time of the procedure is documented in the report. TECHNICAL DOCUMENTATION: JOB ID: [id number]- All Rights Reserved Reading location - IP/workstation name: [email or web address]
[2018-05-25] MEDS ORDERED: HYDROMORPHONE HCL 2 MG TABLET ONE (16:38)
[2018-05-25] MEDS ORDERED: HYDROMORPHONE HCL 2 MG TABLET PO ONE (17:00)
[2018-05-25] MEDS ORDERED: LOSARTAN POTASSIUM 50 MG TABLET PO ONE (17:45)
[2018-05-25] MEDS ORDERED: AMLODIPINE BESYLATE 2.5 MG TABLET PO ONE (17:45)
[2018-05-25 18:38] VITALS: BP 190/88
== END 2018-05-25 18:15 | disposition home or self-care (01) ==
LOC: OROUT 09:32
PROVIDERS: ATTEND Orthopaedic Surgery
DX: S82.002A Unspecified fracture of left patella, initial encounter for closed fracture (principal); X58.XXXA Exposure to other specified factors, initial encounter; R01.1 Cardiac murmur, unspecified; D64.9 Anemia, unspecified; E11.22 Type 2 diabetes mellitus with diabetic chronic kidney disease; I12.9 Hypertensive chronic kidney disease with stage 1 through stage 4 chronic kidney disease, or unspecified chronic kidney disease; N18.9 Chronic kidney disease, unspecified; Z99.2 Dependence on renal dialysis; Z88.5 Allergy status to narcotic agent; Z88.0 Allergy status to penicillin; Z79.899 Other long term (current) drug therapy; Z87.891 Personal history of nicotine dependence
CPT/HCPCS: 36415; 82962; 85027; 80048; 81001; 83036; 71045; 73560; 93005; 93010; 27524; C1769; C1713; J2250; A9270 ×5; J3490 ×2; J3010; J2405; J2704; J0131; 01392

== ENCOUNTER 2018-06-17 09:22 | Emergency (ER) | payer MEDICARE, MEDICAID ==
[2018-06-17 09:42] VITALS: BP 186/63
[2018-06-17] MEDS ORDERED: HYDROCODONE/ACETAMINOPHEN 5-325 MG TABLET PO ONE (09:47)
--- NOTE | 2018-06-17 09:49 | ER Document Report ---
ED Medical Screen (RME) - General Chief Complaint: Knee Injury Stated Complaint: FALL/ANKLE PAIN Time Seen by Provider: 06/17/18 09:44 Notes: 58 years old female with a history of end-stage renal disease on dialysis, had a dialysis this morning. Yesterday around 7:00 dog ran across her foot and sprained her ankle, noted some deformity. Presents today with pain and discomfort. On examination left ankle shows possible dislocation of the ankle and fracture of the malleolus. TRAVEL OUTSIDE OF THE [place] IN LAST 30 DAYS: No - Related Data Allergies/Adverse Reactions: Penicillins Allergy (Severe, Verified 06/17/18 09:23) rash oxycodone [From Percocet] Adverse Reaction (Verified 06/17/18 09:23) Past Medical History - Past Medical History Cardiac Medical History: Reports: Hx Hypertension Denies: Hx Coronary Artery Disease, Hx Heart Attack Pulmonary Medical History: Denies: Hx Asthma, Hx Bronchitis, Hx COPD, Hx Pneumonia Neurological Medical History: Denies: Hx Cerebrovascular Accident, Hx Seizures Endocrine Medical History: Reports: Hx Diabetes Mellitus Type 1, Hx Diabetes Mellitus Type 2 Renal/ Medical History: Reports: Hx End Stage Renal Disease, Hx Hemodialysis. Denies: Hx Peritoneal Dialysis Musculoskeltal Medical History: Denies Hx Arthritis Past Surgical History: Reports: Hx Appendectomy, Hx Cholecystectomy, Hx Orthopedic Surgery - feet, Hx Tubal Ligation, Hx Vascular Surgery - fistula upper arm, Other - Hemodialysis vascular access left upper extremity - Immunizations Hx Diphtheria, Pertussis, Tetanus Vaccination: No History of Influenza Vaccine for 04/2017 - 09/2017 Season: Refused Physical Exam - Vital signs Vitals: Temp Pulse Resp BP Pulse Ox 98.3 F 89 16 186/63 H 100 06/17/18 09:26 06/17/18 09:26 06/17/18 09:26 06/17/18 09:26 06/17/18 09:26 Course - Vital Signs Vital signs: Temp Pulse Resp BP Pulse Ox 98.3 F 89 16 186/63 H 100 06/17/18 09:26 06/17/18 09:26 06/17/18 09:26 06/17/18 09:26 06/17/18 09:26 Doctor's Discharge - Discharge Referrals: IRENE SAMANIEGO MD [Primary Care Provider] - Follow up as needed
--- NOTE | 2018-06-17 10:42 | RADIOLOGY REPORT (SQ) ---
EXAM DESCRIPTION: ANKLE LEFT COMPLETE COMPLETED DATE/TIME: 06/17/2018 10:26 am REASON FOR STUDY: Injury and pain COMPARISON: None. NUMBER OF VIEWS: Three views left ankle. LIMITATIONS: Markedly limiting osteopenia. FINDINGS: Generally fused appearance of the hindfoot. No displaced fracture suggested. Regional so ft tissue swelling. OTHER: No other significant finding. IMPRESSION: Limited study. Findings as above. No gross displaced fracture evident. TECHNICAL DOCUMENTATION: JOB ID: [id number] Reading location - IP/workstation name: [email or web address]
--- NOTE | 2018-06-17 10:55 | ER Document Report ---
ED General - General Chief Complaint: Knee Injury Stated Complaint: FALL/ANKLE PAIN Time Seen by Provider: 06/17/18 09:44 TRAVEL OUTSIDE OF THE [place] IN LAST 30 DAYS: No - HPI Notes: Patient is a 58-year-old female that presents to the emergency department for chief complaint of left ankle pain. Patient states yesterday while walking her dog she got tangled in his leash which caused her to trip and fall. She rolled her left ankle when she fell to the ground. She states she is having pain on the lateral aspect of her left ankle. Pain is worse with movement and weightbearing. She has been able to stand since the fall. She denies any numbness or tingling. Patient has history of fusion in this ankle in the 1970s. She usually is able to ambulate without issues. Patient also reports recent surgery on her left knee but states her knee is feeling good and denies any current knee pain. Past Medical History: Reviewed in chart Past Surgical History: reviewed in chart Social History: Denies drugs alcohol and tobacco Family History: Reviewed and noncontributory for presenting illness Allergies: Reviewed, see documented allergy list. REVIEW OF SYSTEMS: CONSTITUTIONAL : No fever No chills No diaphoresis No recent illness EENT: No vision changes No congestion No sore throat CARDIOVASCULAR: No chest pain No palpitations RESPIRATORY: No shortness of breath No cough No difficulty breathing GASTROINTESTINAL: No abdominal pain No nausea No vomiting No diarrhea GENITOURINARY: No dysuria No hematuria No difficulty urinating MUSCULOSKELETAL: No back pain Left ankle pain No arm pain SKIN: No rashes No lesions LYMPHATIC: No swollen, enlarged glands. NEUROLOGICAL: No lightheadedness No headache No weakness No paresthesias PSYCHIATRIC: No anxiety No depression PHYSICAL EXAMINATION: Vital signs reviewed, nursing noted reviewed. GENERAL: Well-appearing, well-nourished and in no acute distress. HEAD: Atraumatic, normocephalic. EYES: Eyes appear normal, extraocular movements intact, sclera anicteric, conjunctiva are normal. ENT: nares patent, oropharynx clear without exudates. Moist mucous membranes. NECK: Normal range of motion, supple without lymphadenopathy LUNGS: Breath sounds clear to auscultation bilaterally and equal. No wheezes rales or rhonchi. HEART: Regular rate and rhythm without murmurs ABDOMEN: Soft, nontender, normoactive bowel sounds. No rebound, guarding, or rigidity. No masses appreciated. EXTREMITIES: Lateral left ankle tenderness and soft tissue swelling, decreased left ankle range of motion. Left knee brace in place limiting left knee exam for range of motion, no left knee bony tenderness. NEUROLOGICAL: No focal neurological deficits. Moves all extremities spontaneously Motor and sensory grossly intact on exam. PSYCH: Normal mood, normal affect. SKIN: Warm, Dry, normal turgor, no rashes or lesions noted on exposed skin - Related Data Allergies/Adverse Reactions: Penicillins Allergy (Severe, Verified 06/17/18 09:23) rash oxycodone [From Percocet] Adverse Reaction (Verified 06/17/18 09:23) Past Medical History - Social History Smoking Status: Never Smoker Chew tobacco use (# tins/day): No Frequency of alcohol use: None Drug Abuse: None Family History: DM, Hypertension Patient has suicidal ideation: No Patient has homicidal ideation: No - Past Medical History Cardiac Medical History: Reports: Hx Hypertension Denies: Hx Coronary Artery Disease, Hx Heart Attack Pulmonary Medical History: Denies: Hx Asthma, Hx Bronchitis, Hx COPD, Hx Pneumonia Neurological Medical History: Denies: Hx Cerebrovascular Accident, Hx Seizures Endocrine Medical History: Reports: Hx Diabetes Mellitus Type 1, Hx Diabetes Mellitus Type 2 Renal/ Medical History: Reports: Hx End Stage Renal Disease, Hx Hemodialysis. Denies: Hx Peritoneal Dialysis Musculoskeletal Medical History: Denies Hx Arthritis Past Surgical History: Reports: Hx Appendectomy, Hx Cholecystectomy, Hx Orthopedic Surgery - feet, Hx Tubal Ligation, Hx Vascular Surgery - fistula upper arm, Other - Hemodialysis vascular access left upper extremity - Immunizations Hx Diphtheria, Pertussis, Tetanus Vaccination: No Physical Exam - Vital signs Vitals: Temp Pulse Resp BP Pulse Ox 98.3 F 89 16 186/63 H 100 06/17/18 09:26 06/17/18 09:26 06/17/18 09:26 06/17/18 09:26 06/17/18 09:26 Course - Re-evaluation Re-evalutation: 06/17/18 10:53 Vitals reviewed. Nursing notes reviewed. Patient received [place] for pain. X- ray of the left ankle shows ankle fusion with no acute bony injury. Patient was given an Jono wrap for comfort. She has a wheeled walker and crutches at home that she will use to assist in ambulation. I counseled her on rice therapy. I offered a prescription for ibuprofen or naproxen which she has declined. She states she has Ultram at home that she will take for pain. She has an appointment on July [address] Mas for reevaluation of her knee. She denies any pain in the left knee and I do not suspect left knee fracture. Ankle X-Ray 06/17/18 09:47 IMPRESSION: Limited study. Findings as above. No gross displaced fracture evident. I advised her if she is still having discomfort in the ankle to follow with him as well. - Vital Signs Vital signs: Temp Pulse Resp BP Pulse Ox 98.3 F 89 16 186/63 H 100 06/17/18 09:26 06/17/18 09:26 06/17/18 09:26 06/17/18 09:26 06/17/18 09:26 Discharge - Discharge Clinical Impression: Left ankle pain Qualifiers: Chronicity: acute Qualified Code(s): M25.572 - Pain in left ankle and joints of left foot Condition: Stable Disposition: HOME, SELF-CARE Instructions: Jono Wrap ([facility]), Sprained Ankle ([facility]) Additional Instructions: Please return to the emergency department if you have any worsening, or concern of your symptoms. Please return to the emergency department if you develop chest pain, difficulty breathing, severe abdominal pain, or ongoing vomiting. Please follow-up with your primary care physician in 2-3 days and any other recommended physicians. If prescribed, take all medications as directed. If you have any questions or concerns do not hesitate to return the emergency department for evaluation. [] Referrals: IRENE SAMANIEGO MD [Primary Care Provider] - Follow up as needed MONTSE MAS MD [ACTIVE STAFF] - Follow up as needed
== END 2018-06-17 11:05 | disposition home or self-care (01) ==
LOC: ER 09:22
DX: M25.572 Pain in left ankle and joints of left foot (principal); M79.89 Other specified soft tissue disorders; W01.0XXA Fall on same level from slipping, tripping and stumbling without subsequent striking against object, initial encounter; Y93.K1 Activity, walking an animal; Z98.1 Arthrodesis status; I12.0 Hypertensive chronic kidney disease with stage 5 chronic kidney disease or end stage renal disease; E11.22 Type 2 diabetes mellitus with diabetic chronic kidney disease; N18.6 End stage renal disease; Z99.2 Dependence on renal dialysis; Z98.890 Other specified postprocedural states; Z88.0 Allergy status to penicillin
CPT/HCPCS: 99283; 73610; A9270

== ENCOUNTER 2018-08-24 11:23 | Inpatient (IN) | payer MEDICARE, MEDICAID ==
--- NOTE | 2018-08-24 13:00 | ER Document Report ---
ED Medical Screen (RME) - General Chief Complaint: Breathing Difficulty Stated Complaint: DIFFICULTY BREATHING Time Seen by Provider: 08/24/18 12:51 Primary Care Provider: IRENE SAMANIEGO MD [Primary Care Provider] - Follow up as needed Notes: 58-year-old to the emergency department for evaluation of shortness of breath and chest pain. Patient states that she has not had dialysis since last week. Tried to get seen at [facility] but they could not see her so sent her here. Feels like she has an elephant sitting on her chest. I have greeted and performed a rapid initial assessment of this patient. A comprehensive ED assessment and evaluation of the patient, analysis of test results and completion of the medical decision making process will be conducted by additional ED providers. TRAVEL OUTSIDE OF THE [place] IN LAST 30 DAYS: No - Related Data Allergies/Adverse Reactions: Penicillins Allergy (Severe, Verified 08/24/18 11:26) rash oxycodone [From Percocet] Adverse Reaction (Verified 08/24/18 11:26) Past Medical History - Past Medical History Cardiac Medical History: Reports: Hx Hypertension Denies: Hx Coronary Artery Disease, Hx Heart Attack Pulmonary Medical History: Denies: Hx Asthma, Hx Bronchitis, Hx COPD, Hx Pneumonia Neurological Medical History: Denies: Hx Cerebrovascular Accident, Hx Seizures Endocrine Medical History: Reports: Hx Diabetes Mellitus Type 1, Hx Diabetes Mellitus Type 2 Renal/ Medical History: Reports: Hx End Stage Renal Disease, Hx Hemodialysis. Denies: Hx Peritoneal Dialysis Musculoskeltal Medical History: Denies Hx Arthritis Past Surgical History: Reports: Hx Appendectomy, Hx Cholecystectomy, Hx Orthopedic Surgery - feet, Hx Tubal Ligation, Hx Vascular Surgery - fistula upper arm, Other - Hemodialysis vascular access left upper extremity - Immunizations Hx Diphtheria, Pertussis, Tetanus Vaccination: No History of Influenza Vaccine for 04/2017 - 09/2017 Season: Refused Review of Systems - Review of Systems Notes: Review of systems positive for the following: Shortness of breath. Physical Exam - Vital signs Vitals: Temp Pulse Resp BP Pulse Ox 99.6 F 89 20 122/58 L 95 08/24/18 11:50 08/24/18 11:50 08/24/18 11:50 08/24/18 11:50 08/24/18 11:50 Course - Vital Signs Vital signs: Temp Pulse Resp BP Pulse Ox 99.6 F 89 20 122/58 L 95 08/24/18 11:50 08/24/18 11:50 08/24/18 11:50 08/24/18 11:50 08/24/18 11:50 Doctor's Discharge - Discharge Referrals: IRENE SAMANIEGO MD [Primary Care Provider] - Follow up as needed
--- NOTE | 2018-08-24 13:44 | RADIOLOGY REPORT (SQ) ---
EXAM DESCRIPTION: CHEST SINGLE VIEW COMPLETED DATE/TIME: 08/24/2018 1:12 pm REASON FOR STUDY: sob COMPARISON: 05/25/2018. EXAM PARAMETERS: NUMBER OF VIEWS: One view. TECHNIQUE: Single frontal radiographic view of the chest acquired. RADIATION DOSE: NA LIMITATIONS: None. FINDINGS: LUNGS AND PLEURA: Patchy basilar airspace disease. Small to moderate right pleural effusi on which has increased in size slightly MEDIASTINUM AND HILAR STRUCTURES: No masses. Contour normal. HEART AND VASCULAR STRUCTURES: Heart upper limits of normal in size. Mild vascular congestion. BONES: No acute findings. HARDWARE: None in the chest. OTHER: No other significant finding. IMPRESSION: BORDERLINE CARDIOMEGALY. MILD VASCULAR CONGESTION. SMALL TO MODERATE RIGHT PLEURAL EFF USION. TECHNICAL DOCUMENTATION: JOB ID: [id number] [employer]- All Rights Reserved Reading location - IP/workstation name: [email or web address]
[2018-08-24 13:59] LABS: ABSOLUTE BASOPHILS # (AUTO) 0.1 10^3/uL (0.0-0.2); ABSOLUTE EOSINOPHILS # (AUTO) 0.1 10^3/uL (0.0-0.6); ABSOLUTE LYMPHOCYTES (AUTO) 1.1 10^3/uL (0.5-4.7); ABSOLUTE MONOCYTES (AUTO) 0.5 10^3/uL (0.1-1.4); ABSOLUTE NEUT (AUTO) 8.7 10^3/uL (1.7-8.2); EOSINOPHILS % (AUTO) 0.7 % (0-6); HEMOGLOBIN 9.6 g/dL (12.0-15.5); LYMPHOCYTES % (AUTO) 10.7 % (13-45); MEAN CORPUSCULAR HEMOGLOBIN 27.4 pg (27.0-33.4); MEAN CORPUSCULAR HGB CONC 31.9 g/dL (32.0-36.0); MEAN CORPUSCULAR VOLUME 86 fl (80-97); MONOCYTES % (AUTO) 4.8 % (3-13); PLATELET COUNT 330 10^3/uL (150-450); RED CELL DISTRIBUTION WIDTH 18.3 % (11.5-14.0); SEGMENTED NEUTROPHILS % (AUTO) 82.8 % (42-78); TOTAL CELLS COUNTED % (AUTO) 100 %; WHITE BLOOD COUNT 10.5 10^3/uL (4.0-10.5)
[2018-08-24 14:00] LABS: ALANINE AMINOTRANSFERASE 11 U/L (9-52); ALBUMIN 3.8 g/dL (3.5-5.0); ALKALINE PHOSPHATASE 158 U/L (38-126); ANION GAP 14 (5-19); ASPARTATE AMINO TRANSFERASE 16 U/L (14-36); BILIRUBIN,DIRECT 0.8 mg/dL (0.0-0.4); BILIRUBIN,TOTAL 1.1 mg/dL (0.2-1.3); BLOOD UREA NITROGEN 54 mg/dL (7-20); CARBON DIOXIDE 22 mmol/L (22-30); CHLORIDE 97 mmol/L (98-107); GLUCOSE 209 mg/dL (75-110); SODIUM 132.6 mmol/L (137-145); TOTAL PROTEIN 8.1 g/dL (6.3-8.2)
[2018-08-24 14:03] LABS: POTASSIUM 7.1 mmol/L (3.6-5.0)
[2018-08-24] MEDS ORDERED: ALBUTEROL SULFATE 0.083% NEB 2.5 MG/3 ML AMPUL NEB ONE (14:04)
[2018-08-24] MEDS ORDERED: CALCIUM GLUCONATE 1000 MG/10 ML INJ IV ONE ×2 (14:04→14:19)
[2018-08-24] MEDS ORDERED: SODIUM POLYSTYRENE SULFONATE 15 GM/60 ML PO ONE (14:05)
[2018-08-24] MEDS ORDERED: SODIUM BICARBONATE 8.4% INJ 50 MEQ/50 ML DISP.SYRIN IV ONE (14:05)
[2018-08-24] MEDS ORDERED: DEXTROSE 50%-WATER 25 GM/50 ML DISP.SYRIN IV ONE (14:06)
[2018-08-24] MEDS ORDERED: INSULIN REG, HUMAN 100 UNIT/ML 3 ML VIAL (PYX) IV ONE (14:06)
--- NOTE | 2018-08-24 14:46 | ER Document Report ---
ED General - General Chief Complaint: Breathing Difficulty Stated Complaint: DIFFICULTY BREATHING Time Seen by Provider: 08/24/18 12:51 Mode of Arrival: Ambulatory Information source: Patient Notes: This is a 58-year-old female with a history of end-stage renal disease (on diet this normally Friday, , Friday) who was last dialyzed on Friday (3 days ago) who presents to the emergency room with shortness of breath, productive cough and fever for the last 4 days. Patient denies any redness or pain over the AV shunt (left upper extremity). She denies any rashes. She denies any abdominal pain. TRAVEL OUTSIDE OF THE [place] IN LAST 30 DAYS: No - HPI Onset: Yesterday Onset/Duration: Gradual Quality of pain: No pain Severity: None Pain Level: Denies Associated symptoms: Chills, Fever, Shortness of breath Exacerbated by: Movement Relieved by: Denies Similar symptoms previously: Yes Recently seen / treated by doctor: Yes - Related Data Allergies/Adverse Reactions: Penicillins Allergy (Severe, Verified 08/24/18 11:26) rash oxycodone [From Percocet] Adverse Reaction (Verified 08/24/18 11:26) Past Medical History - General Information source: Patient - Social History Smoking Status: Former Smoker Cigarette use (# per day): No Chew tobacco use (# tins/day): No Frequency of alcohol use: None Drug Abuse: None Lives with: Family Family History: DM, Hypertension Patient has suicidal ideation: No Patient has homicidal ideation: No - Past Medical History Cardiac Medical History: Reports: Hx Hypertension Denies: Hx Coronary Artery Disease, Hx Heart Attack Pulmonary Medical History: Denies: Hx Asthma, Hx Bronchitis, Hx COPD, Hx Pneumonia Neurological Medical History: Denies: Hx Cerebrovascular Accident, Hx Seizures Endocrine Medical History: Reports: Hx Diabetes Mellitus Type 1, Hx Diabetes Mellitus Type 2 Renal/ Medical History: Reports: Hx End Stage Renal Disease, Hx Hemodialysis. Denies: Hx Peritoneal Dialysis Musculoskeletal Medical History: Denies Hx Arthritis Past Surgical History: Reports: Hx Appendectomy, Hx Cholecystectomy, Hx Orthopedic Surgery - feet, Hx Tubal Ligation, Hx Vascular Surgery - fistula upper arm, Other - Hemodialysis vascular access left upper extremity - Immunizations Hx Diphtheria, Pertussis, Tetanus Vaccination: No Review of Systems - Review of Systems Constitutional: Chills, Fever EENT: No symptoms reported Cardiovascular: denies: Chest pain, Palpitations, Heart racing Respiratory: See HPI Gastrointestinal: No symptoms reported Genitourinary: No symptoms reported Female Genitourinary: No symptoms reported Musculoskeletal: No symptoms reported Skin: No symptoms reported Hematologic/Lymphatic: No symptoms reported Neurological/Psychological: No symptoms reported Physical Exam - Vital signs Vitals: Temp Pulse Resp BP Pulse Ox 99.6 F 89 20 122/58 L 95 08/24/18 11:50 08/24/18 11:50 08/24/18 11:50 08/24/18 11:50 08/24/18 11:50 Notes: Physical exam: GENERAL: She is alert and oriented x3, no acute distress her temperature is 99.6, blood pressure 122/58, respiratory rate 20, O2 sat on room air 95%. HEAD: Atraumatic, normocephalic. EYES: Pupils equal round and reactive to light, extraocular movements intact, sclera anicteric, conjunctiva are normal. ENT: TMs normal, nares patent, oropharynx clear without exudates. Moist mucous membranes. NECK: Normal range of motion, supple without obvious mass or JVD. LUNGS: Breath sounds clear to auscultation bilaterally and equal. No wheezes rales or rhonchi. HEART: Regular rate and rhythm without murmurs, rubs or gallops. ABDOMEN: Soft, normoactive bowel sounds. No tenderness to palpation. No guarding, no rebound. No masses appreciated. EXTREMITIES: Left upper extremity with AV shunt. There is no overlying erythema. Good there is a good thrill. Left lower extremity: Patient had left knee surgery in May of this past year. The wound is well-healed. No erythema or tenderness with range of motion. Other extremities: Normal range of motion, no pitting or edema. No clubbing or cyanosis. NEUROLOGICAL: Cranial nerves II through XII grossly intact. Normal speech, moving all extremities. PSYCH: Normal mood, normal affect. SKIN: Warm, Dry, normal turgor, no rashes or lesions noted. Course - Re-evaluation Re-evalutation: 08/24/18 14:46 I did discuss the presentation, chest x-ray results and hyperkalemia to Dr. Gutierres who is arranging for dialysis. We did send a repeat potassium as confirmation for the hyperkalemia. While waiting for the repeat, we are initiating insulin and D50, calcium gluconate, albuterol nebulizer. - Vital Signs Vital signs: Temp Pulse Resp BP Pulse Ox 98.4 F 89 14 128/53 H 97 08/24/18 21:42 08/24/18 21:42 08/24/18 21:42 08/24/18 21:42 08/24/18 21:42 - Laboratory Result Diagrams: 08/24/18 13:28 08/24/18 20:40 Laboratory results interpreted by me: 08/24/18 08/24/18 08/24/18 13:28 13:28 14:27 RBC 3.50 L Hgb 9.6 L Hct 30.0 L MCHC 31.9 L RDW 18.3 H Seg Neutrophils % 82.8 H Lymphocytes % 10.7 L Absolute Neutrophils 8.7 H Sodium 132.6 L 132.9 L Potassium 7.1 H* 7.0 H* Chloride 97 L 95 L BUN 54 H 55 H Creatinine 6.23 H 6.48 H Est GFR ( Amer) 8 L 8 L Est GFR (Non-Af Amer) 7 L 7 L Glucose 209 H 200 H Calcium 8.0 L 8.2 L Direct Bilirubin 0.8 H Alkaline Phosphatase 158 H - Diagnostic Test Radiology reviewed: Image reviewed, Reports reviewed - Chest x-ray shows mild pulmonary congestion with a small right pleural effusion. - EKG Interpretation by Me Rate: Normal Rhythm: NSR - EKG shows normal sinus rhythm with a ventricular rate of 93, no acute T wave elevations. Critical Care Note - Critical Care Note Total time excluding time spent on procedures (mins): 60 Discharge - Discharge Clinical Impression: Pneumonia, Hyperkalemia severe Condition: Stable Disposition: ADMITTED INPATIENT Admitting Provider: Hospitalist [facility] Admitted: Telemetry
[2018-08-24 15:40] LABS: ANION GAP 14 (5-19); BLOOD UREA NITROGEN 55 mg/dL (7-20); CALCIUM 8.2 mg/dL (8.4-10.2); CARBON DIOXIDE 24 mmol/L (22-30); CHLORIDE 95 mmol/L (98-107); GLUCOSE 200 mg/dL (75-110); SODIUM 132.9 mmol/L (137-145)
[2018-08-24 15:53] LABS: A TYPE INFLUENZA AG NEGATIVE (NEGATIVE); B INFLUENZA AG NEGATIVE (NEGATIVE)
[2018-08-24] MEDS ORDERED: ALBUTEROL SULFATE 0.083% NEB 2.5 MG/3 ML AMPUL NEB PRN (17:11)
[2018-08-24] MEDS ORDERED: ACETAMINOPHEN 325 MG TABLET PO PRN (17:11)
[2018-08-24] MEDS ORDERED: HYDRALAZINE HCL INJ/PF 20 MG/1 ML SDV IV PRN (17:21)
[2018-08-24] MEDS ORDERED: DEXTROSE 40% GEL 15 GM TUBE PO PRN ×2 (17:43)
[2018-08-24] MEDS ORDERED: DEXTROSE 50%-WATER 25 GM/50 ML DISP.SYRIN IV PRN ×2 (17:43)
[2018-08-24] MEDS ORDERED: GLUCAGON,HUMAN RECOMB 1 MG INJ IM PRN (17:43)
[2018-08-24] MEDS ORDERED: NORMAL SALINE 1000 ML 1,000 ML IV PRN (17:47)
[2018-08-24] MEDS ORDERED: ONDANSETRON HCL INJ/PF 4 MG/2 ML SDV IV PRN (17:48)
--- NOTE | 2018-08-24 17:49 | PDOC H&P ---
History of Present Illness Admission Date/PCP: IRENE SAMANIEGO Patient complains of: Shortness of breath, chest pressure History of Present Illness: SAMIA HEALY is a 58 year old female with past medical history of hypertension, diabetes, end-stage renal disease and on dialysis, who presented the ED complaining of chest pressure, cough, fever and chills for the last 24 hours. Patient states that for the last 6 weeks she has been having cough, congestion and runny nose but has not gone seeing her PCP. States she spoke with her PCP and they told her to just take Tylenol for her fever or congestion. States that last night she felt the chest pressure and she could not breathe. States that she thought it would get better and hence she waited until this afternoon when it was much worse and she started to feel more chills. States that in the last 24-hour she had a temperature of 103.6 T-max and hence she came to the ER today for evaluation. States at this time his chest pressure is better and she is breathing better. She is not requiring oxygen. She normally has dialysis on Friday/ and Friday. But this started she did not get dialysis since her crystal calibrator was not available. Hence she had a dialysis done and Friday this past week. Today in the ER she was found to have a potassium of 7 and suspected pneumonia. Past Medical History Cardiac Medical History: Reports: Hypertension Denies: Coronary Artery Disease, Myocardial Infarction Pulmonary Medical History: Denies: Asthma, Bronchitis, Chronic Obstructive Pulmonary Disease (COPD), Pneumonia Neurological Medical History: Denies: Seizures Endocrine Medical History: Reports: Diabetes Mellitus Type 1, Diabetes Mellitus Type 2 Renal/ Medical History: Reports: End Stage Renal Disease Musculoskeltal Medical History: Denies: Arthritis Hematology: Denies: Anemia Past Surgical History Past Surgical History: Reports: Appendectomy, Cholecystectomy, Orthopedic Surgery - feet, Tubal Ligation, Vascular Surgery - fistula upper arm, Other - Hemodialysis vascular access left upper extremity Social History Information Source: Patient Smoking Status: Former Smoker Frequency of Alcohol Use: None Hx Recreational Drug Use: No Drugs: None Hx Prescription Drug Abuse: No - Advance Directive Resuscitation Status: Full Code Family History Family History: None, DM, Hypertension Parental Family History Reviewed: Yes Children Family History Reviewed: Unknown Sibling(s) Family History Reviewed.: Unknown Medication/Allergy Home Medications: Calcium Acetate [Phoslo 667 mg Capsule] 667 mg PO MEALS #90 capsule 07/01/17 Insulin Lispro [Humalog Insulin (Lispro) 100 unit/mL] 0 unit SQ .SLIDING SCALE #10 ml 07/01/17 Gabapentin [Neurontin 100 mg Capsule] 200 mg PO TID 05/22/18 Insulin Degludec [Tresiba Flextouch U-100] unit SQ ASDIR PRN 05/22/18 Amlodipine Besylate 2.5 mg PO HSP PRN 05/25/18 Carvedilol 12.5 mg PO BID 05/25/18 Losartan Potassium 100 mg PO HSP PRN 05/25/18 Oxycodone HCl 5 mg PO Q6 #40 tablet 05/25/18 Allergies/Adverse Reactions: Penicillins Allergy (Severe, Verified 08/24/18 11:26) rash oxycodone [From Percocet] Adverse Reaction (Verified 08/24/18 11:26) Review of Systems All systems: reviewed and no additional remarkable complaints except as stated Constitutional: PRESENT: chills, fever(s) Eyes: ABSENT: visual disturbances Ears: ABSENT: hearing changes Cardiovascular: PRESENT: other - Chest pressure. ABSENT: chest pain, edema Respiratory: PRESENT: cough, dyspnea Gastrointestinal: ABSENT: abdominal pain, diarrhea, nausea, vomiting Neurological: ABSENT: confusion, numbness, syncope Physical Exam Vital Signs: Temp Pulse Resp BP Pulse Ox 99.6 F 89 23 H 126/83 H 100 08/24/18 11:50 08/24/18 11:50 08/24/18 17:16 08/24/18 17:16 08/24/18 16:08 Intake & Output 08/23/18 08/24/18 08/25/18 06:59 06:59 06:59 Weight 133 lb 9.602 oz General appearance: PRESENT: no acute distress Head exam: PRESENT: atraumatic, normocephalic Eye exam: PRESENT: EOMI. ABSENT: conjunctival injection, scleral icterus Ear exam: PRESENT: normal external ear exam Mouth exam: PRESENT: moist, tongue midline Neck exam: ABSENT: tracheal deviation Respiratory exam: PRESENT: decreased breath sounds - Bilaterally at the bases, rhonchi - Occasional, symmetrical Cardiovascular exam: PRESENT: +S1, +S2 Pulses: PRESENT: +1 pedal pulses bilateral GI/Abdominal exam: PRESENT: normal bowel sounds, soft. ABSENT: tenderness Extremities exam: ABSENT: pedal edema Neurological exam: PRESENT: alert, awake, oriented to person, oriented to place, oriented to time, oriented to situation, CN II-XII grossly intact Skin exam: PRESENT: dry, warm Results Laboratory Results: 08/24/18 13:28 08/24/18 14:27 08/24/18 08/24/18 08/24/18 13:28 13:28 14:27 WBC 10.5 RBC 3.50 L Hgb 9.6 L Hct 30.0 L MCV 86 MCH 27.4 MCHC 31.9 L RDW 18.3 H Plt Count 330 Seg Neutrophils % 82.8 H Lymphocytes % 10.7 L Monocytes % 4.8 Eosinophils % 0.7 Basophils % 1.0 Absolute Neutrophils 8.7 H Absolute Lymphocytes 1.1 Absolute Monocytes 0.5 Absolute Eosinophils 0.1 Absolute Basophils 0.1 Sodium 132.6 L 132.9 L Potassium 7.1 H* 7.0 H* Chloride 97 L 95 L Carbon Dioxide 22 24 Anion Gap 14 14 BUN 54 H 55 H Creatinine 6.23 H 6.48 H Est GFR ( Amer) 8 L 8 L Est GFR (Non-Af Amer) 7 L 7 L Glucose 209 H 200 H Lactic Acid Calcium 8.0 L 8.2 L Total Bilirubin 1.1 AST 16 ALT 11 Alkaline Phosphatase 158 H Total Protein 8.1 Albumin 3.8 08/24/18 16:00 WBC RBC Hgb Hct MCV MCH MCHC RDW Plt Count Seg Neutrophils % Lymphocytes % Monocytes % Eosinophils % Basophils % Absolute Neutrophils Absolute Lymphocytes Absolute Monocytes Absolute Eosinophils Absolute Basophils Sodium Potassium Chloride Carbon Dioxide Anion Gap BUN Creatinine Est GFR ( Amer) Est GFR (Non-Af Amer) Glucose Lactic Acid 1.9 Calcium Total Bilirubin AST ALT Alkaline Phosphatase Total Protein Albumin Impressions: Chest X-Ray 08/24/18 12:52 IMPRESSION: BORDERLINE CARDIOMEGALY. MILD VASCULAR CONGESTION. SMALL TO MODERATE RIGHT PLEURAL EFFUSION. Assessment & Plan - Diagnosis (1) Pneumonia Is this a current diagnosis for this admission?: Yes (2) Hyperkalemia Is this a current diagnosis for this admission?: Yes (3) Diabetes mellitus type 2 in nonobese Is this a current diagnosis for this admission?: Yes (4) Anemia of renal disease Is this a current diagnosis for this admission?: Yes (5) Dyspnea Qualifiers: Dyspnea type: unspecified Qualified Code(s): R06.00 - Dyspnea, unspecified Is this a current diagnosis for this admission?: Yes (6) End stage renal failure on dialysis Is this a current diagnosis for this admission?: Yes (7) Hypertension Qualifiers: Hypertension type: unspecified Qualified Code(s): I10 - Essential (primary) hypertension Is this a current diagnosis for this admission?: Yes (8) Pleural effusion, right Is this a current diagnosis for this admission?: Yes (9) Hyponatremia Is this a current diagnosis for this admission?: Yes - Time Time Spent: Greater than 70 Minutes - Plan Summary Plan Summary: dyspnea-likely secondary to pneumonia-patient has been coughing, fevers of 103 at home, and having shortness of breath. Clinically it seems though she has pneumonia but I will get a flu screen to rule out influenza. At this time I will start her on azithromycin Rocephin empirically until we have a better picture of her cause of her symptoms. Unfortunately I cannot test her urine since she infrequently voids. Blood cultures are pending. [id number]-noted on chest x-ray-we will likely need repeat chest x-ray for follow-up and resolution. Hyperkalemia-most likely secondary to her end-stage renal disease. She is getting dialyzed now in the ER-repeat BMP 1 hour after dialysis. I have consulted Dr. Gutierres regarding her dialysis. I appreciate his assistance. I did not see any changes on her EKG except for peaked T waves. We will consider giving her some calcium gluconate. End-stage renal disease-in dialysis-she states that she does make very little urine infrequently. She gets dialyzed Friday and Friday. Unfortunately she did not get dialyzed this Friday since she did not have a crystal calibrator. But she did get dialyzed and Friday of last week. Diabetes-at home she is on 14 units of Tresiba and here we will start her on 8 units of Lantus and sliding scale. Hypertension-her meds are not reconciled yet. I will start her on hydralazine IV as needed until the meds are reconciled Anemia of chronic disease-hemoglobin baseline likely around 8 and 9. Seems to be at baseline now. No signs of bleed-continue to monitor Hyponatremia-most likely she is dehydrated-we will consider giving her some gentle IV fluids overnight and repeat blood work in the morning.
--- NOTE | 2018-08-24 18:23 | EKG REPORT ---
SEVERITY:- BORDERLINE ECG - SINUS RHYTHM PROBABLE LEFT ATRIAL ABNORMALITY : Confirmed by: Deng Holt 24-Aug-2018 18:22:49
--- NOTE | 2018-08-24 19:01 | PDOC CONSULTATION ---
Consultation Consult Date: 08/24/18 Consult reason:: ESRD for dialysis in the setting of congestive heart failure and hyperkalemia of 7.1. History of Present Illness Admission Date/PCP: IRENE SAMANIEGO History of Present Illness: SAMIA HEALY is a 58 year old female with past medical history of ESRD on hemodialysis in the background of hypertension, diabetes, presented the ED complaining of chest pressure, cough, fever and chills for the last 24 hours. She states that she has been having cough with yellow-green expectoration for the last few days along with a pleuritic kind of chest pain. She has been having intermittent fever and chills but today it began to get worse this afternoon when it was much worse and she started to feel more chills. States that in the last 24-hour she had a temperature of 103.6 T-max and hence she came to the ER today for evaluation. She missed her dialysis on Friday because of some issues at home. She is not on a proper diet. She dialyzes under Dr. Delacruz at [place] under [place] [facility]. Currently she is undergoing dialysis without any issues. Vital signs are stable. She is feeling somewhat better since being on dialysis. She says she has gotten IV antibiotics. Chest x-ray on review shows bilateral small pleural effusions. No clear evidences of pneumonia at the moment. Labs and medications were reviewed. Analysis orders were reviewed with the treating dialysis nurse [place]. Past Medical History Cardiac Medical History: Reports: Hypertension-primary Denies: Coronary Artery Disease, Myocardial Infarction Pulmonary Medical History: Denies: Asthma, Bronchitis, Chronic Obstructive Pulmonary Disease (COPD), Pneumonia Neurological Medical History: Denies: Seizures Endocrine Medical History: Reports: Diabetes Mellitus Type 2 Renal/ Medical History: Reports: End Stage Renal Disease, Secondary Hyperparathyroidism Musculoskeltal Medical History: Denies: Arthritis Hematology Medical History: Reports Anemia of Chronic Kidney Disease Past Surgical History Past Surgical History: Reports: Appendectomy, Cholecystectomy, Orthopedic Surgery - feet, Tubal Ligation, Vascular Surgery - fistula upper arm, Other - Hemodialysis vascular access left upper extremity Social History Smoking Status: Former Smoker Frequency of Alcohol Use: None Hx Recreational Drug Use: No Drugs: None Hx Prescription Drug Abuse: No Family History Parental Family History Reviewed: Yes - Negative for ESRD Children Family History Reviewed: No Sibling(s) Family History Reviewed.: No Medication/Allergy Home Medications: Calcium Acetate [Phoslo 667 mg Capsule] 667 mg PO MEALS #90 capsule 07/01/17 Insulin Lispro [Humalog Insulin (Lispro) 100 unit/mL] 0 unit SQ .SLIDING SCALE #10 ml 07/01/17 Gabapentin [Neurontin 100 mg Capsule] 200 mg PO TID 05/22/18 Insulin Degludec [Tresiba Flextouch U-100] unit SQ ASDIR PRN 05/22/18 Amlodipine Besylate 2.5 mg PO HSP PRN 05/25/18 Carvedilol 12.5 mg PO BID 05/25/18 Losartan Potassium 100 mg PO HSP PRN 05/25/18 Oxycodone HCl 5 mg PO Q6 #40 tablet 05/25/18 Allergies/Adverse Reactions: Penicillins Allergy (Severe, Verified 08/24/18 11:26) rash oxycodone [From Percocet] Adverse Reaction (Verified 08/24/18 11:26) Review of Systems Constitutional: PRESENT: fatigue, fever(s), night sweats, weakness. ABSENT: headache(s) Nose, Mouth, and Throat: ABSENT: mouth pain, sore throat Cardiovascular: PRESENT: dyspnea on exertion, edema, orthropnea. ABSENT: chest pain Respiratory: PRESENT: cough, dyspnea. ABSENT: hemoptysis Gastrointestinal: PRESENT: nausea. ABSENT: abdominal pain, constipation, diarrhea, dysphagia, heartburn, hematemesis, hematochezia, vomiting Integumentary: ABSENT: erythema, lesions, pruritus, rash Neurological: ABSENT: abnormal gait, abnormal movements, abnormal speech, confusion, convulsions, focal weakness, frequent falls Psychiatric: ABSENT: anxiety Endocrine: ABSENT: polydipsia Hematologic/Lymphatic: ABSENT: easy bleeding, easy bruising, lymphadenopathy Physical Exam Vital Signs: Temp Pulse Resp BP Pulse Ox 99.6 F 89 31 H 167/70 H 100 08/24/18 11:50 08/24/18 11:50 08/24/18 15:01 08/24/18 15:01 08/24/18 15:01 Intake & Output 08/23/18 08/24/18 08/25/18 06:59 06:59 06:59 Weight 60.6 kg General appearance: PRESENT: no acute distress Eye exam: PRESENT: EOMI, PERRLA. ABSENT: nystagmus Ear exam: PRESENT: normal external ear exam Mouth exam: PRESENT: moist, neck supple Neck exam: ABSENT: lymphadenopathy, meningismus, tenderness, thyromegaly, tracheal deviation Respiratory exam: PRESENT: clear to auscultation carlos, crackles, decreased breath sounds, rhonchi Cardiovascular exam: PRESENT: +S1, +S2, systolic murmur GI/Abdominal exam: PRESENT: normal bowel sounds, soft. ABSENT: organomegaly, tenderness Extremities exam: PRESENT: pedal edema Neurological exam: PRESENT: alert, awake, oriented to person, oriented to place, oriented to time Psychiatric exam: PRESENT: appropriate affect Skin exam: ABSENT: cyanosis, erythema, mottled, rash Results Laboratory Results: 08/24/18 13:28 08/24/18 08/24/18 13:28 13:28 WBC 10.5 RBC 3.50 L Hgb 9.6 L Hct 30.0 L MCV 86 MCH 27.4 MCHC 31.9 L RDW 18.3 H Plt Count 330 Seg Neutrophils % 82.8 H Lymphocytes % 10.7 L Monocytes % 4.8 Eosinophils % 0.7 Basophils % 1.0 Absolute Neutrophils 8.7 H Absolute Lymphocytes 1.1 Absolute Monocytes 0.5 Absolute Eosinophils 0.1 Absolute Basophils 0.1 Sodium 132.6 L Potassium 7.1 H* Chloride 97 L Carbon Dioxide 22 Anion Gap 14 BUN 54 H Creatinine 6.23 H Est GFR ( Amer) 8 L Est GFR (Non-Af Amer) 7 L Glucose 209 H Calcium 8.0 L Total Bilirubin 1.1 AST 16 ALT 11 Alkaline Phosphatase 158 H Total Protein 8.1 Albumin 3.8 Impressions: Chest X-Ray 08/24/18 12:52 IMPRESSION: BORDERLINE CARDIOMEGALY. MILD VASCULAR CONGESTION. SMALL TO MODERATE RIGHT PLEURAL EFFUSION. Assessment & Plan - Diagnosis (1) Hyperkalemia Is this a current diagnosis for this admission?: Yes Plan: Patient is got severe hyperkalemia 7.1 with early EKG changes. She has hyperacute T waves in the lateral leads. She is being urgently dialyzed on a 1K bath followed by 2K. She should respond to this appropriately. We discussed implications of high potassium when she is noncompliant with her diet discussed the serious complications including sudden cardiac arrest. Besides her diet I believe the prolonged nondialysis between now Friday and today . Discussed about compliance with proper dialysis treatments and diet. (2) End stage renal failure on dialysis Is this a current diagnosis for this admission?: Yes Plan: She is without any issues. Is being supervised to ensure safe and smooth procedure. Vital signs are stable. Plan to dialyze on a 1K followed by 2K bath. She should respond. Monitor labs post dialysis. (3) Pleural effusion, right Is this a current diagnosis for this admission?: Yes Plan: She could be having early pneumonia which is not detectable at the moment on the chest x-ray. I would follow up with an x-ray in the morning. Continue on antibiotics as such. (4) Anemia of renal disease Is this a current diagnosis for this admission?: Yes Plan: Will adjust erythropoietin. (5) Diabetes Plan: Advised tight diabetic control (6) Hypertension Qualifiers: Hypertension type: unspecified Qualified Code(s): I10 - Essential (primary) hypertension Is this a current diagnosis for this admission?: Yes Plan: Relatively well controlled. See response to dialysis. (7) Fever Plan: She is been having fever with chills and rigors. However note that she has no leukocytosis and the chest x-ray is currently clean for any evidences of consolidation. However that said, she could light up on her x-ray tomorrow as symptomatology is quite likely of pneumonia. Continue on antibiotics. Cultures pending.Serology for influenza were negative
[2018-08-24 21:13] LABS: ANION GAP 14 (5-19); CALCIUM 8.4 mg/dL (8.4-10.2); CARBON DIOXIDE 28 mmol/L (22-30); CHLORIDE 94 mmol/L (98-107); GLUCOSE 96 mg/dL (75-110); SODIUM 135.7 mmol/L (137-145)
[2018-08-24] MEDS: IPRATROPIUM/ALBUTEROL 0.5-2.5 MG/3 ML AMPUL NEB SCH (21:23)
[2018-08-24 21:27] LABS: BLOOD UREA NITROGEN 23 mg/dL (7-20); POTASSIUM 4.9 mmol/L (3.6-5.0)
[2018-08-24] MEDS: HEPARIN SOD (PORCINE) 5,000 UNIT/ML 1 ML SYRINGE SUBCUT SCH (21:56)
[2018-08-24] MEDS: INSULIN REG, HUMAN 100 UNIT/ML 3 ML VIAL (PYX) SUBCUT SCH (21:59)
[2018-08-24] MEDS ORDERED: INSULIN GLARGINE,HUM.REC.ANLOG 300 UNIT/3 ML INSULN.PEN SUBCUT SCH (22:00)
[2018-08-24] MEDS: FAMOTIDINE 20 MG TABLET PO SCH (22:00)
[2018-08-25] MEDS: IPRATROPIUM/ALBUTEROL 0.5-2.5 MG/3 ML AMPUL NEB SCH ×3 (02:20→14:04)
[2018-08-25] MEDS: HEPARIN SOD (PORCINE) 5,000 UNIT/ML 1 ML SYRINGE SUBCUT SCH ×2 (05:12→13:18)
[2018-08-25 05:35] LABS: HEMATOCRIT 28.7 % (36.0-47.0); HEMOGLOBIN 9.1 g/dL (12.0-15.5); MEAN CORPUSCULAR HEMOGLOBIN 27.3 pg (27.0-33.4); MEAN CORPUSCULAR HGB CONC 31.8 g/dL (32.0-36.0); MEAN CORPUSCULAR VOLUME 86 fl (80-97); PLATELET COUNT 293 10^3/uL (150-450); RED BLOOD COUNT 3.34 10^6/uL (3.72-5.28); RED CELL DISTRIBUTION WIDTH 18.1 % (11.5-14.0); WHITE BLOOD COUNT 5.9 10^3/uL (4.0-10.5)
[2018-08-25 05:56] LABS: ANION GAP 13 (5-19); BLOOD UREA NITROGEN 29 mg/dL (7-20); CALCIUM 8.2 mg/dL (8.4-10.2); CARBON DIOXIDE 27 mmol/L (22-30); CHLORIDE 97 mmol/L (98-107); GLUCOSE 168 mg/dL (75-110); POTASSIUM 5.3 mmol/L (3.6-5.0)
[2018-08-25] MEDS: INSULIN REG, HUMAN 100 UNIT/ML 3 ML VIAL (PYX) SUBCUT SCH ×2 (09:28→13:16)
[2018-08-25] MEDS: FAMOTIDINE 20 MG TABLET PO SCH (09:29)
[2018-08-25] MEDS ORDERED: AZITHROMYCIN 500 MG in DEXTROSE 5%-WATER 250 ML IV SCH (10:00)
[2018-08-25] MEDS ORDERED: CEFTRIAXONE 1 GM/D5W RTU 1 GM/50 ML RTUPB IV SCH (10:00)
[2018-08-25 14:55] VITALS: BP 128/53
--- NOTE | 2018-08-25 21:48 | EKG REPORT ---
SEVERITY:- ABNORMAL ECG - SINUS RHYTHM PROBABLE LEFT ATRIAL ABNORMALITY PROBABLE LVH WITH SECONDARY REPOL ABNRM : Confirmed by: Deng Holt 25-Aug-2018 21:47:23
--- NOTE | 2018-08-25 22:15 | PDOC DISCHARGE SUMMARY ---
General - Admit/Disc Date/PCP Admission Date/Primary Care Provider: 08/24/18 17:39 IRENE SAMANIEGO Discharge Date: 08/25/18 - Discharge Diagnosis (1) Pneumonia Is this a current diagnosis for this admission?: Yes Summary: The patient was started on azithromycin and ceftriaxone. She feels significantly better. I did give her a prescription to continue the azithromycin and Ceftin as an outpatient. She should follow-up with her primary care physician. She has been afebrile since the initiation of antibiotic therapy. (2) Chest pain Is this a current diagnosis for this admission?: Yes Summary: Possibly secondary to the pneumonia and volume overload. Significantly improved after dialysis. No evidence for a cardiac etiology. (3) Diabetes mellitus type 2 in nonobese Is this a current diagnosis for this admission?: Yes Summary: She will return to her Tarceva and Humalog sliding scale. (4) End stage renal failure on dialysis Is this a current diagnosis for this admission?: Yes Summary: Emergently dialyzed on Friday. Has follow-up with her outpatient dialysis on . - Additional Information Resuscitation Status: Full Code Discharge Diet: Other (Comments) - Renal Discharge Activity: Activity As Tolerated, Balance Activity w/Rest Prescriptions: Azithromycin [Zithromax] 250 mg PO DAILY 5 Days #5 tablet Cefuroxime Axetil [Ceftin 250 mg Tablet] 1 tab PO BID 7 Days #14 tablet Home Medications: Gabapentin [Neurontin 100 mg Capsule] 200 mg PO TID 05/22/18 Insulin Degludec [Tresiba Flextouch U-100] 14 unit SQ ASDIR PRN 05/22/18 Amlodipine Besylate 5 mg PO QHS 05/25/18 Carvedilol 12.5 mg PO BID 05/25/18 Losartan Potassium 100 mg PO QHS 05/25/18 Aspirin [Ecotrin] 81 mg PO DAILY 08/24/18 Atorvastatin Calcium [Lipitor 80 mg Tablet] 80 mg PO QHS 08/24/18 Cholecalciferol (Vitamin D3) [Vitamin D3] 50,000 unit PO Q30D 08/24/18 Ferric Citrate [Auryxia] 420 mg PO TID 08/24/18 Insulin Lispro [Humalog Insulin (Lispro) 100 unit/mL] 9 unit SQ .SLIDING SCALE 08/24/18 Meclizine HCl [Antivert 12.5 mg Tablet] 12.5 mg PO TIDP PRN 08/24/18 Azithromycin [Zithromax] 250 mg PO DAILY 5 Days #5 tablet 08/25/18 Cefuroxime Axetil [Ceftin 250 mg Tablet] 1 tab PO BID 7 Days #14 tablet 08/25/18 History of Present Illness Patient complains of: Increased shortness of breath with chest pressure. History of Present Illness: SAMIA HEALY is a 58 year old female who presented to the emergency department yesterday. She is dialysis dependent end-stage kidney disease with a history of hypertension and diabetes. She was complaining of chest pressure with a cough as well as fever and chills. Her condition had worsened over the previous 24 hours. She reports possible upper respiratory infection over the last 6 weeks but she did not see her primary care physician. When she was feeling chest pressure and was having difficulty breathing she proceeded to the emergency department. She reports that she has been having chills. Her temperature at home reached 103.6 degrees. She normally receives hemodialysis on Friday, and Friday but missed her Friday treatment. She was admitted to the hospitalist service. Hospital Course Hospital Course: The patient actually had a reasonable hospital course after she was emergently dialyzed. Her breathing improved significantly. She has been afebrile. She never had an elevated white blood cell count. She is feeling much better today. Because of the progress and the fact that she will be having dialysis on I felt it was reasonable for her to discharge to home. Physical Exam Vital Signs: Temp Pulse Resp BP Pulse Ox 98.8 F 81 16 128/53 H 97 08/25/18 14:53 08/25/18 14:53 08/25/18 14:53 08/25/18 14:53 08/25/18 14:53 Intake & Output 08/24/18 08/25/18 08/26/18 06:59 06:59 06:59 Intake Total 320 300 Output Total 2900 Balance -2580 300 Weight 58.5 kg General appearance: PRESENT: no acute distress, cooperative Head exam: PRESENT: normocephalic Eye exam: PRESENT: conjunctiva pale. ABSENT: scleral icterus Respiratory exam: PRESENT: clear to auscultation carlos, symmetrical, unlabored. ABSENT: accessory muscle use, rales, rhonchi, wheezes Cardiovascular exam: PRESENT: RRR, +S1, +S2 GI/Abdominal exam: PRESENT: normal bowel sounds, soft. ABSENT: distended, tenderness Extremities exam: PRESENT: pedal edema Neurological exam: PRESENT: alert, awake, oriented to person, oriented to place, oriented to time, oriented to situation, CN II-XII grossly intact Psychiatric exam: PRESENT: appropriate affect, normal mood. ABSENT: agitated, anxious Focused psych exam: ABSENT: restlessness Results Laboratory Results: 08/25/18 05:11 08/25/18 05:11 08/25/18 08/25/18 05:11 05:11 WBC 5.9 RBC 3.34 L Hgb 9.1 L Hct 28.7 L MCV 86 MCH 27.3 MCHC 31.8 L RDW 18.1 H Plt Count 293 Sodium 137.0 Potassium 5.3 H Chloride 97 L Carbon Dioxide 27 Anion Gap 13 BUN 29 H Creatinine 4.01 H Est GFR ( Amer) 14 L Est GFR (Non-Af Amer) 11 L Glucose 168 H Calcium 8.2 L 08/24/18 08/24/18 14:27 20:40 Troponin I 0.025 0.030 Impressions: Chest X-Ray 08/24/18 12:52 IMPRESSION: BORDERLINE CARDIOMEGALY. MILD VASCULAR CONGESTION. SMALL TO MODERATE RIGHT PLEURAL EFFUSION. Qualifiers - * PATIENT BEING DISCHARGED WITH ANY OF THE FOLLOWING DIAGNOSIS: No Plan Discharge Plan: Will discharge to home. She currently lives with her daughter. Time Spent: Greater than 30 Minutes
== END 2018-08-25 16:00 | disposition home or self-care (01) | DRG 193 ==
LOC: ER 11:23 → EH 17:39 → 4N 20:30
PROVIDERS: ADMIT Internal Medicine; ATTEND Internal Medicine
PROC: 5A1D70Z Performance of Urinary Filtration, Intermittent, Less than 6 Hours Per Day (ICD-10-PCS; principal; 2018-08-24)
PROC: 3E0F73Z Introduction of Anti-inflammatory into Respiratory Tract, Via Natural or Artificial Opening (ICD-10-PCS; 2018-08-24)
DX: J18.9 Pneumonia, unspecified organism (principal); N18.6 End stage renal disease; I13.2 Hypertensive heart and chronic kidney disease with heart failure and with stage 5 chronic kidney disease, or end stage renal disease; N25.81 Secondary hyperparathyroidism of renal origin; E87.1 Hypo-osmolality and hyponatremia; E11.22 Type 2 diabetes mellitus with diabetic chronic kidney disease; E87.5 Hyperkalemia; D63.1 Anemia in chronic kidney disease; Z99.2 Dependence on renal dialysis; Z79.899 Other long term (current) drug therapy; Z79.4 Long term (current) use of insulin; Z79.82 Long term (current) use of aspirin; Z90.49 Acquired absence of other specified parts of digestive tract; Z87.891 Personal history of nicotine dependence; Z88.0 Allergy status to penicillin; Z88.6 Allergy status to analgesic agent; Z83.3 Family history of diabetes mellitus; Z82.49 Family history of ischemic heart disease and other diseases of the circulatory system
CPT/HCPCS: 36415; 71045; 80048; 80053; 82962; 83605; 84484; 85025; 85027; 87040; 87804; 93005; 93010; 94640; 96365; 96375; 99291; G0257; J0456; J0610; J0696; J1644; J1815; J3490; J7060; J7620

== ENCOUNTER 2019-02-15 00:23 | Inpatient (IN) | payer MEDICARE, MEDICAID ==
[2019-02-15] MEDS ORDERED: IPRATROPIUM/ALBUTEROL 0.5-2.5 MG/3 ML AMPUL NEB ONE (00:33)
[2019-02-15 00:58] LABS: VENOUS BLOOD BASE EXCESS -4.5 mmol/L; VENOUS BLOOD HCO3 23.8 mmol/L (20-32); VENOUS BLOOD PH 7.23 (7.30-7.42)
[2019-02-15] MEDS ORDERED: CEFTRIAXONE 1 GM/D5W RTU 1 GM/50 ML RTUPB IV ONE (01:00)
[2019-02-15 01:02] LABS: ABSOLUTE BASOPHILS # (AUTO) 0.1 10^3/uL (0.0-0.2); ABSOLUTE EOSINOPHILS # (AUTO) 0.2 10^3/uL (0.0-0.6); ABSOLUTE LYMPHOCYTES (AUTO) 1.7 10^3/uL (0.5-4.7); ABSOLUTE MONOCYTES (AUTO) 0.7 10^3/uL (0.1-1.4); ABSOLUTE NEUT (AUTO) 8.2 10^3/uL (1.7-8.2); BASOPHILS % (AUTO) 0.9 % (0-2); HEMATOCRIT 33.6 % (36.0-47.0); HEMOGLOBIN 10.7 g/dL (12.0-15.5); LYMPHOCYTES % (AUTO) 15.2 % (13-45); MEAN CORPUSCULAR HEMOGLOBIN 31.3 pg (27.0-33.4); MEAN CORPUSCULAR VOLUME 98 fl (80-97); MONOCYTES % (AUTO) 6.7 % (3-13); PLATELET COUNT 312 10^3/uL (150-450); RED BLOOD COUNT 3.43 10^6/uL (3.72-5.28); RED CELL DISTRIBUTION WIDTH 16.3 % (11.5-14.0); SEGMENTED NEUTROPHILS % (AUTO) 75.2 % (42-78); TOTAL CELLS COUNTED % (AUTO) 100 %; WHITE BLOOD COUNT 10.9 10^3/uL (4.0-10.5)
[2019-02-15 01:09] LABS: INTERNATIONAL RATION (INR) 1.01; PROTHROMBIN TIME 13.3 SEC (11.4-15.4)
[2019-02-15 01:17] LABS: APPEARANCE,URINE CLEAR; BILIRUBIN,URINE NEGATIVE (NEGATIVE); COLOR,URINE YELLOW; GLUCOSE, URINE >=500 mg/dL (NEGATIVE); KETONES,URINE NEGATIVE (NEGATIVE); LEUKOCYTE ESTERASE,URINE NEGATIVE (NEGATIVE); NITRITE,URINE NEGATIVE (NEGATIVE); PROTEIN,URINE >=500 mg/dL (NEGATIVE); URINE SPECIFIC GRAVITY 1.013; UROBILINOGEN,URINE NEGATIVE mg/dL (<2.0)
[2019-02-15 01:18] LABS: ALANINE AMINOTRANSFERASE 18 U/L (9-52); ALBUMIN 4.4 g/dL (3.5-5.0); ALKALINE PHOSPHATASE 250 U/L (38-126); ANION GAP 17 (5-19); ASPARTATE AMINO TRANSFERASE 16 U/L (14-36); BILIRUBIN,DIRECT 0.6 mg/dL (0.0-0.4); BILIRUBIN,TOTAL 0.6 mg/dL (0.2-1.3); BLOOD UREA NITROGEN 57 mg/dL (7-20); CARBON DIOXIDE 24 mmol/L (22-30); CHLORIDE 96 mmol/L (98-107); CREATINE KINASE 69 U/L (30-135); POTASSIUM 5.1 mmol/L (3.6-5.0); TOTAL PROTEIN 8.1 g/dL (6.3-8.2)
[2019-02-15 01:25] LABS: GLUCOSE 610 mg/dL (75-110)
[2019-02-15 01:27] LABS: CREATINE KINASE MB 1.31 ng/mL (<4.55)
[2019-02-15] MEDS ORDERED: INSULIN REG, HUMAN 100 UNIT/ML 3 ML VIAL (PYX) SUBCUT ONE (01:32)
[2019-02-15] MEDS ORDERED: VANCOMYCIN HCL INJ 1000 MG VIAL IV ONE (01:51)
--- NOTE | 2019-02-15 02:18 | RADIOLOGY REPORT (SQ) ---
Chest single view on 02/15/2019 at 1:45 AM CLINICAL INDICATION: Shortness of breath COMPARISON: 08/24/2018 FINDINGS: There is continued small right pleural effusion. There is new likely fluid in the right minor fissure. There is continued right lower lung opacity likely representing atelectasis. Left lung is clear. Heart is within normal limits for size. Left axillary stent is noted. IMPRESSION: Persistent right pleural effusion with now some fluid in the fissure plane on the right with continued right lower lung opacity likely representing atelectasis.
--- NOTE | 2019-02-15 02:51 | ER Document Report ---
ED General - General Chief Complaint: Breathing Difficulty Stated Complaint: DIFFICULTY BREATHING Time Seen by Provider: 02/15/19 00:31 Mode of Arrival: Medic Information source: Patient, Emergency Med Personnel, [facility] Records Notes: 58-year-old female with end-stage renal disease, diabetes, hypertension presents via EMS from home with complaint of shortness of breath that started this evening. EMS reports that upon arrival patient was hypoxic at 79%. Patient was placed on BiPAP by EMS and Nitropaste was placed to the patient's blood pressure of 220/103. Patient reports that she has had a nonproductive cough for several days. Patient undergoes dialysis Friday and Friday and was dialyzed yesterday without any complications. Patient denies knowing that she had a temperature. EMS reports a fever of 101.7. Patient states that this feels similar to when she was diagnosed with pneumonia and August 2018. Patient goes to [facility] for dialysis and sees Dr. Mortensen and Dr. Gutierres. TRAVEL OUTSIDE OF THE [place] IN LAST 30 DAYS: No - HPI Onset: Just prior to arrival Onset/Duration: Gradual, Persistent Quality of pain: No pain Severity: None Pain Level: Denies Associated symptoms: Body/muscle aches, Chills, Nonproductive cough, Shortness of breath. denies: Chest pain, Leg swelling, Nausea, Vomiting, Sweating, Weakness Exacerbated by: Denies Relieved by: Denies Similar symptoms previously: Yes Recently seen / treated by doctor: Yes - Related Data Allergies/Adverse Reactions: Penicillins Allergy (Severe, Verified 08/24/18 11:26) rash ciprofloxacin [From Cipro] Allergy (Verified 02/15/19 00:35) shellfish derived Allergy (Verified 02/15/19 06:20) Swelling of tongue oxycodone [From Percocet] Adverse Reaction (Verified 08/24/18 11:26) Past Medical History - General Information source: Patient, [facility] Records - Social History Smoking Status: Current Every Day Smoker Cigarette use (# per day): Yes - 5 Chew tobacco use (# tins/day): No Smoking Education Provided: Yes - Smoking cessation counseling was provided for 4 minutes at the bedside Frequency of alcohol use: None Drug Abuse: None Lives with: Family Family History: DM, Hypertension Patient has suicidal ideation: No Patient has homicidal ideation: No - Past Medical History Cardiac Medical History: Reports: Hx Hypertension Denies: Hx Coronary Artery Disease, Hx Heart Attack Pulmonary Medical History: Denies: Hx Asthma, Hx Bronchitis, Hx COPD, Hx Pneumonia Neurological Medical History: Denies: Hx Cerebrovascular Accident, Hx Seizures Endocrine Medical History: Reports: Hx Diabetes Mellitus Type 1, Hx Diabetes Mellitus Type 2 Renal/ Medical History: Reports: Hx End Stage Renal Disease, Hx Hemodialysis. Denies: Hx Peritoneal Dialysis Musculoskeletal Medical History: Denies Hx Arthritis Past Surgical History: Reports: Hx Appendectomy, Hx Cholecystectomy, Hx Orthopedic Surgery - feet, Hx Tubal Ligation, Hx Vascular Surgery - fistula upp er arm, Other - Hemodialysis vascular access left upper extremity - Immunizations Hx Diphtheria, Pertussis, Tetanus Vaccination: No Review of Systems - Review of Systems Constitutional: Chills. denies: Fever, Weakness, Recent illness EENT: denies: Blurred vision, Difficulty swallowing Cardiovascular: Palpitations. denies: Chest pain, Dizziness, Lightheaded, Edema Respiratory: Cough, Short of breath Gastrointestinal: denies: Abdominal pain, Nausea, Constipation Genitourinary: denies: Dysuria, Flank pain Female Genitourinary: No symptoms reported Musculoskeletal: denies: Back pain, Leg swelling Skin: denies: Rash Hematologic/Lymphatic: No symptoms reported Neurological/Psychological: denies: Headaches -: Yes All other systems reviewed and negative Physical Exam - Vital signs Vitals: Resp Pulse Ox 35 H 100 02/15/19 00:25 02/15/19 00:25 - Notes Notes: PHYSICAL EXAMINATION: GENERAL: Well-appearing, well-nourished and in no acute distress. HEAD: Atraumatic, normocephalic. EYES: Pupils equal round and reactive to light, extraocular movements intact, conjunctiva are normal. ENT: Nares patent, oropharynx clear without exudates. Moist mucous membranes. NECK: Normal range of motion, supple without lymphadenopathy LUNGS: Diminished breath sounds bilaterally. HEART: Regular rate and rhythm without murmurs ABDOMEN: Soft, nontender, nondistended abdomen. No guarding, no rebound. No masses appreciated. Female : deferred Musculoskeletal: Normal range of motion, no pitting or edema. No cyanosis. NEUROLOGICAL: Cranial nerves grossly intact. Normal speech, normal gait. Normal sensory, motor exams PSYCH: Normal mood, normal affect. SKIN: Warm, Dry, normal turgor, no rashes or lesions noted. Course - Re-evaluation Re-evalutation: 02/15/19 02:56 Laboratory 02/15/19 02/15/19 02/15/19 00:36 00:36 00:36 WBC 10.9 H RBC 3.43 L Hgb 10.7 L Hct 33.6 L MCV 98 H MCH 31.3 MCHC 32.0 RDW 16.3 H Plt Count 312 Seg Neutrophils % 75.2 Lymphocytes % 15.2 Monocytes % 6.7 Eosinophils % 2.0 Basophils % 0.9 Absolute Neutrophils 8.2 Absolute Lymphocytes 1.7 Absolute Monocytes 0.7 Absolute Eosinophils 0.2 Absolute Basophils 0.1 PT 13.3 INR 1.01 VBG pH VBG pCO2 VBG HCO3 VBG Base Excess Sodium 137.2 Potassium 5.1 H Chloride 96 L Carbon Dioxide 24 Anion Gap 17 BUN 57 H Creatinine 6.08 H Est GFR ( Amer) 9 L Est GFR (Non-Af Amer) 7 L Glucose 610 H* Lactic Acid Calcium 8.0 L Total Bilirubin 0.6 Direct Bilirubin 0.6 H Neonat Total Bilirubin Not Reportable Neonat Direct Bilirubin Not Reportable Neonat Indirect Bili Not Reportable AST 16 ALT 18 Alkaline Phosphatase 250 H Creatine Kinase 69 CK-MB (CK-2) NT-Pro-B Natriuret Pep Total Protein 8.1 Albumin 4.4 Urine Color Urine Appearance Urine pH Ur Specific [place] Urine Protein Urine Glucose (UA) Urine Ketones Urine Blood Urine Nitrite Urine Bilirubin Urine Urobilinogen Ur Leukocyte Esterase Urine WBC (Auto) Urine RBC (Auto) Squamous Epi Cells Auto Urine Mucus (Auto) Urine Ascorbic Acid 02/15/19 02/15/19 02/15/19 00:36 00:36 00:36 WBC RBC Hgb Hct MCV MCH MCHC RDW Plt Count Seg Neutrophils % Lymphocytes % Monocytes % Eosinophils % Basophils % Absolute Neutrophils Absolute Lymphocytes Absolute Monocytes Absolute Eosinophils Absolute Basophils PT INR VBG pH 7.23 L VBG pCO2 58.0 VBG HCO3 23.8 VBG Base Excess -4.5 Sodium Potassium Chloride Carbon Dioxide Anion Gap BUN Creatinine Est GFR ( Amer) Est GFR (Non-Af Amer) Glucose Lactic Acid 1.9 Calcium Total Bilirubin Direct Bilirubin Neonat Total Bilirubin Neonat Direct Bilirubin Neonat Indirect Bili AST ALT Alkaline Phosphatase Creatine Kinase CK-MB (CK-2) 1.31 NT-Pro-B Natriuret Pep 8840 H Total Protein Albumin Urine Color Urine Appearance Urine pH Ur Specific [place] Urine Protein Urine Glucose (UA) Urine Ketones Urine Blood Urine Nitrite Urine Bilirubin Urine Urobilinogen Ur Leukocyte Esterase Urine WBC (Auto) Urine RBC (Auto) Squamous Epi Cells Auto Urine Mucus (Auto) Urine Ascorbic Acid 02/15/19 00:59 WBC RBC Hgb Hct MCV MCH MCHC RDW Plt Count Seg Neutrophils % Lymphocytes % Monocytes % Eosinophils % Basophils % Absolute Neutrophils Absolute Lymphocytes Absolute Monocytes Absolute Eosinophils Absolute Basophils PT INR VBG pH VBG pCO2 VBG HCO3 VBG Base Excess Sodium Potassium Chloride Carbon Dioxide Anion Gap BUN Creatinine Est GFR ( Amer) Est GFR (Non-Af Amer) Glucose Lactic Acid Calcium Total Bilirubin Direct Bilirubin Neonat Total Bilirubin Neonat Direct Bilirubin Neonat Indirect Bili AST ALT Alkaline Phosphatase Creatine Kinase CK-MB (CK-2) NT-Pro-B Natriuret Pep Total Protein Albumin Urine Color YELLOW Urine Appearance CLEAR Urine pH 8.0 Ur Specific [place] 1.013 Urine Protein >=500 H Urine Glucose (UA) >=500 H Urine Ketones NEGATIVE Urine Blood SMALL H Urine Nitrite NEGATIVE Urine Bilirubin NEGATIVE Urine Urobilinogen NEGATIVE Ur Leukocyte Esterase NEGATIVE Urine WBC (Auto) 5 Urine RBC (Auto) 12 Squamous Epi Cells Auto <1 Urine Mucus (Auto) RARE Urine Ascorbic Acid NEGATIVE Chest X-Ray 02/15/19 00:00 IMPRESSION: Persistent right pleural effusion with now some fluid in the fissure plane on the right with continued right lower lung opacity likely representing atelectasis. Temp Pulse Resp BP Pulse Ox 99.8 F 20 160/66 H 98 02/15/19 02:53 02/15/19 02:53 02/15/19 02:53 02/15/19 02:53 02/16/19 16:14 58-year-old female with end-stage renal disease, diabetes, hypertension presents via EMS from home with complaint of shortness of breath that started this aicha kelsie. EMS reports that upon arrival patient was hypoxic at 79%. Patient was placed on BiPAP by EMS and Nitropaste was placed to the patient's blood pressure of 220/103. Patient reports that she has had a nonproductive cough for several days. Patient undergoes dialysis Friday and Friday and was dialyzed yesterday without any complications signs reviewed upon arrival and patient is t achypnea, tachycardic and febrile. Patient was immediately transferred on to [facility]. breathing treatments were administered as well as Tylenol for her fever. Gentle hydration was initiated due to patient's Vascular congestion.gentle rehydration. patient did receive antibiotics. CBC shows mild leukocytosis and stable anemia. CMP shows Renal failure,significant hyperglycemia without evidence of DKA. Reevaluation patient is resting comfortably on BiPAP. Increased work of breathing has improved. Dr. Storm has agreed to admit the patient to a medicine floor. - Vital Signs Vital signs: Temp Pulse Resp BP Pulse Ox 98.3 F 94 17 150/68 H 100 02/16/19 11:44 02/16/19 11:44 02/16/19 11:44 02/16/19 11:44 02/16/19 11:44 - Laboratory Result Diagrams: 02/16/19 06:21 02/16/19 06:21 Laboratory results interpreted by me: 02/15/19 02/15/19 02/15/19 00:36 00:36 00:36 WBC 10.9 H RBC 3.43 L Hgb 10.7 L Hct 33.6 L MCV 98 H RDW 16.3 H VBG pH 7.23 L Potassium 5.1 H Chloride 96 L BUN 57 H Creatinine 6.08 H Est GFR ( Amer) 9 L Est GFR (Non-Af Amer) 7 L Glucose 610 H* POC Glucose Calcium 8.0 L Direct Bilirubin 0.6 H Alkaline Phosphatase 250 H NT-Pro-B Natriuret Pep Urine Protein Urine Glucose (UA) Urine Blood 02/15/19 02/15/19 02/15/19 00:36 00:59 01:03 WBC RBC Hgb Hct MCV RDW VBG pH Potassium Chloride BUN Creatinine Est GFR ( Amer) Est GFR (Non-Af Amer) Glucose POC Glucose 531 H* Calcium Direct Bilirubin Alkaline Phosphatase NT-Pro-B Natriuret Pep 8840 H Urine Protein >=500 H Urine Glucose (UA) >=500 H Urine Blood SMALL H 02/15/19 02:47 WBC RBC Hgb Hct MCV RDW VBG pH Potassium Chloride BUN Creatinine Est GFR ( Amer) Est GFR (Non-Af Amer) Glucose POC Glucose 493 H* Calcium Direct Bilirubin Alkaline Phosphatase NT-Pro-B Natriuret Pep Urine Protein Urine Glucose (UA) Urine Blood - Diagnostic Test Radiology reviewed: Image reviewed, Reports reviewed - EKG Interpretation by Me EKG shows normal: Sinus rhythm Rate: Tachycardia Rhythm: NSR When compared to previous EKG there are: No significant change Discharge - Discharge Clinical Impression: Respiratory distress, End stage renal disease, Hypoxia, End stage renal failure on dialysis, Hyperglycemia, Metabolic acidosis, Anemia of renal disease, Pleural effusion Hypertension Qualifiers: Hypertension type: essential hypertension Qualified Code(s): I10 - Essential (primary) hypertension Dyspnea Qualifiers: Dyspnea type: unspecified Qualified Code(s): R06.00 - Dyspnea, unspecified Fever Qualifiers: Fever type: unspecified Qualified Code(s): R50.9 - Fever, unspecified Condition: Good Disposition: ADMITTED INPATIENT Admitting Provider: Dotty (Hospitalist) Unit Admitted: Medical Floor
[2019-02-15] MEDS ORDERED: MAGNESIUM HYDROXIDE SUSP 30 ML UDCUP PO PRN (04:27)
[2019-02-15] MEDS ORDERED: ONDANSETRON HCL INJ/PF 4 MG/2 ML SDV IV PRN (04:27)
[2019-02-15] MEDS ORDERED: LEVALBUTEROL HCL NEB 0.63 MG/3 ML AMPUL NEB PRN (04:27)
[2019-02-15] MEDS ORDERED: MAG HYDROX/AL HYDROX/SIMETH SUSP 30 ML UDCUP PO PRN (04:27)
[2019-02-15] MEDS ORDERED: ACETAMINOPHEN 325 MG TABLET PO PRN (04:33)
[2019-02-15] MEDS ORDERED: METOPROLOL TARTRATE PF/INJ 5 MG/5 ML SDV IV PRN (04:33)
[2019-02-15] MEDS ORDERED: NICOTINE 21 MG/24 HR PATCH.TD24 TD PRN (04:33)
[2019-02-15] MEDS ORDERED: HYDRALAZINE HCL INJ/PF 20 MG/1 ML SDV IV PRN (04:33)
[2019-02-15] MEDS ORDERED: DEXTROSE 50%-WATER 25 GM/50 ML DISP.SYRIN IV PRN ×2 (04:34)
[2019-02-15] MEDS ORDERED: DEXTROSE 40% GEL 15 GM TUBE PO PRN ×2 (04:34)
[2019-02-15] MEDS ORDERED: GLUCAGON,HUMAN RECOMB 1 MG INJ IM PRN (04:34)
[2019-02-15] MEDS ORDERED: AZITHROMYCIN 250 MG TABLET PO ONE (05:00)
[2019-02-15 05:53] LABS: ARTERIAL BLOOD BASE EXCESS -5.4 mmol/L; ARTERIAL BLOOD H2CO3 1.37 mmol/L (1.05-1.35); ARTERIAL BLOOD O2 SATURATION 98.7 % (94-98); ARTERIAL BLOOD PCO2 45.5 mmHg (35-45); ARTERIAL BLOOD PH 7.28 (7.35-7.45); ARTERIAL BLOOD PO2 150.6 mmHg (80-100); ARTERIAL BLOOD TOTAL CO2 22.4 mmol/L (21-25)
[2019-02-15] MEDS: HEPARIN SOD (PORCINE) 5,000 UNIT/ML 1 ML VIAL SUBCUT SCH ×3 (05:54→21:46)
[2019-02-15 05:55] LABS: ARTERIAL BLOOD FIO2 32%
[2019-02-15] MEDS: METHYLPREDNISOLONE INJ 40 MG/1 ML SDV IV SCH ×2 (05:55→17:09)
[2019-02-15] MEDS: PANTOPRAZOLE SODIUM 40 MG TABLET.DR PO SCH ×2 (05:55→16:51)
--- NOTE | 2019-02-15 05:58 | PDOC H&P ---
History of Present Illness Admission Date/PCP: 02/15/19 03:38 IRENE Jones DANETTE Patient complains of: Dyspnea History of Present Illness: SAMIA HEALY is a 58 year old female who presented to the emergency room with acute dyspnea. Patient admits that she developed acute severe shortness of breath while at home on the evening of 02/14/2019. Her dyspnea did not resolve and remained severe resulting in her summoning EMS. She admits the associated symptoms of a nonproductive cough for the last several days. She denies other associated or accompanying symptoms. She admits prior similar symptoms due to pneumonia. She has not identified any aggravating or ameliorating factors for her dyspnea at this time. EMS found the patient have a fever of 101.7 and an O2 sat of 79%. They placed her on BiPAP and applied an inch of Nitropaste to her chest due to a blood pressure of 220/103. In the emergency room the patient was found to be tachycardic and hypoxic requiring continued BiPAP for maintenance of an adequate O2 sat. Her chest x-ray was negative for acute disease and her CBC showed a white count of 10,900. Patient's glucose was 610 and her potassium was 5.1. Patient was subsequently admitted to the hospital for further evaluation and treatment. Past Medical History Cardiac Medical History: Reports: Hypertension Denies: Coronary Artery Disease, Myocardial Infarction Pulmonary Medical History: Reports: Pneumonia Denies: Asthma, Bronchitis, Chronic Obstructive Pulmonary Disease (COPD) EENT Medical History: Denies: Cataracts, Ears - Hearing aids Neurological Medical History: Denies: Hemorrhagic CVA, Ischemic CVA, Multiple Sclerosis, Seizures Endocrine Medical History: Reports: Diabetes Mellitus Type 2 Denies: Diabetes Mellitus Type 1, Hyperthyroidism, Hypothyroidism Renal/ Medical History: Reports: End Stage Renal Disease, Other - On hemodialysis Friday and Friday with Dr. Mortensen Denies: Nephrolithiasis Malignancy Medical History: Reports: None GI Medical History: Denies: Cirrhosis, Crohn's Disease, Hepatitis, Ulcerative Colitis Musculoskeltal Medical History: Denies: Arthritis, Fibromyalgia Skin Medical History: Denies: Eczema, Psoriasis Psychiatric Medical History: Reports: Tobacco Dependency Denies: Alcohol Dependency, Substance Abuse Traumatic Medical History: Reports: None Hematology: Denies: Anemia, Bleeding Tendencies Infectious Medical History: Reports: None Past Surgical History Past Surgical History: Reports: Appendectomy, Cholecystectomy, Orthopedic Surgery - Foot surgery, bilateral, Tubal Ligation, Vascular Surgery - Hemodialysis vascular access left upper extremity Social History Information Source: Patient Lives with: Family Smoking Status: Former Smoker - Quit this month Frequency of Alcohol Use: None Hx Recreational Drug Use: No Drugs: None Hx Prescription Drug Abuse: No - Advance Directive Resuscitation Status: Full Code Surrogate healthcare decision maker:: Leyla Toth Family History Family History: DM, Hypertension Parental Family History Reviewed: Yes Children Family History Reviewed: No Sibling(s) Family History Reviewed.: Yes Medication/Allergy Home Medications: Gabapentin [Neurontin 100 mg Capsule] 200 mg PO TID 05/22/18 Insulin Degludec [Tresiba Flextouch U-100] 14 unit SQ ASDIR PRN 05/22/18 Amlodipine Besylate 5 mg PO QHS 05/25/18 Carvedilol 12.5 mg PO BID 05/25/18 Losartan Potassium 100 mg PO QHS 05/25/18 Aspirin [Ecotrin] 81 mg PO DAILY 08/24/18 Atorvastatin Calcium [Lipitor 80 mg Tablet] 80 mg PO QHS 08/24/18 Cholecalciferol (Vitamin D3) [Vitamin D3] 50,000 unit PO Q30D 08/24/18 Ferric Citrate [Auryxia] 420 mg PO TID 08/24/18 Insulin Lispro [Humalog Insulin (Lispro) 100 unit/mL] 9 unit SQ .SLIDING SCALE 08/24/18 Meclizine HCl [Antivert 12.5 mg Tablet] 12.5 mg PO TIDP PRN 08/24/18 Azithromycin [Zithromax] 250 mg PO DAILY 5 Days #5 tablet 08/25/18 Cefuroxime Axetil [Ceftin 250 mg Tablet] 1 tab PO BID 7 Days #14 tablet 08/25/18 Allergies/Adverse Reactions: Penicillins Allergy (Severe, Verified 08/24/18 11:26) rash ciprofloxacin [From Cipro] Allergy (Verified 02/15/19 00:35) oxycodone [From Percocet] Adverse Reaction (Verified 08/24/18 11:26) Review of Systems Constitutional: ABSENT: chills, fever(s) Eyes: ABSENT: visual disturbances, other - Ocular pain Ears: ABSENT: hearing changes, other - Ear pain Nose, Mouth, and Throat: ABSENT: mouth pain, sore throat Cardiovascular: ABSENT: chest pain, palpitations Respiratory: PRESENT: as per HPI, cough, dyspnea. ABSENT: hemoptysis, sputum Gastrointestinal: ABSENT: abdominal pain, constipation, diarrhea, nausea, vomiting Genitourinary: ABSENT: dysuria, hematuria Musculoskeletal: ABSENT: back pain, joint swelling, muscle weakness Integumentary: ABSENT: pruritus, rash Neurological: ABSENT: confusion, convulsions, focal weakness, memory loss, syncope Psychiatric: ABSENT: anxiety, depression Endocrine: ABSENT: cold intolerance, heat intolerance Hematologic/Lymphatic: ABSENT: easy bleeding, easy bruising Physical Exam Vital Signs: Temp Pulse Resp BP Pulse Ox 99.8 F 20 160/66 H 98 02/15/19 02:53 02/15/19 02:53 02/15/19 02:53 02/15/19 02:53 Intake & Output 02/13/19 02/14/19 02/15/19 23:59 23:59 23:59 Intake Total 50 Balance 50 General appearance: PRESENT: cooperative, mild distress - Secondary to dyspnea, other - On BiPAP Head exam: PRESENT: atraumatic, normocephalic Eye exam: PRESENT: conjunctiva pink. ABSENT: conjunctival injection, scleral icterus Ear exam: PRESENT: normal external ear exam. ABSENT: bleeding, drainage Mouth exam: PRESENT: dry mucosa, neck supple Neck exam: ABSENT: thyromegaly, tracheal deviation Respiratory exam: PRESENT: decreased breath sounds - Poor air motion and decreased breath sounds in all boone, prolonged expiratory phas - Moderately prolonged expiratory phase present in all boone, symmetrical, wheezes - End expiratory wheezes present in all boone Cardiovascular exam: PRESENT: RRR, tachycardia. ABSENT: clicks, gallop, rubs Pulses: PRESENT: normal radial pulses, normal dorsalis pedis pul Vascular exam: PRESENT: normal capillary refill. ABSENT: pallor GI/Abdominal exam: PRESENT: normal bowel sounds, soft Rectal exam: PRESENT: deferred Extremities exam: PRESENT: other - Dialysis fistula left upper extremity. ABSENT: joint swelling, pedal edema Musculoskeletal exam: PRESENT: full ROM, normal inspection Neurological exam: PRESENT: alert, oriented to person, oriented to place, oriented to time, oriented to situation, CN II-XII grossly intact. ABSENT: motor sensory deficit Psychiatric exam: PRESENT: appropriate affect, normal mood Skin exam: PRESENT: dry, intact, warm. ABSENT: jaundice, rash, urticaria Results Laboratory Results: 02/15/19 00:36 02/15/19 00:36 02/15/19 02/15/19 02/15/19 00:36 00:36 00:36 WBC 10.9 H RBC 3.43 L Hgb 10.7 L Hct 33.6 L MCV 98 H MCH 31.3 MCHC 32.0 RDW 16.3 H Plt Count 312 Seg Neutrophils % 75.2 Lymphocytes % 15.2 Monocytes % 6.7 Eosinophils % 2.0 Basophils % 0.9 Absolute Neutrophils 8.2 Absolute Lymphocytes 1.7 Absolute Monocytes 0.7 Absolute Eosinophils 0.2 Absolute Basophils 0.1 VBG pH VBG pCO2 VBG HCO3 VBG Base Excess Sodium 137.2 Potassium 5.1 H Chloride 96 L Carbon Dioxide 24 Anion Gap 17 BUN 57 H Creatinine 6.08 H Est GFR ( Amer) 9 L Est GFR (Non-Af Amer) 7 L Glucose 610 H* Lactic Acid 1.9 Calcium 8.0 L Total Bilirubin 0.6 AST 16 ALT 18 Alkaline Phosphatase 250 H Total Protein 8.1 Albumin 4.4 Urine Color Urine Appearance Urine pH Ur Specific [place] Urine Protein Urine Glucose (UA) Urine Ketones Urine Blood Urine Nitrite Ur Leukocyte Esterase Urine WBC (Auto) Urine RBC (Auto) 02/15/19 02/15/19 00:36 00:59 WBC RBC Hgb Hct MCV MCH MCHC RDW Plt Count Seg Neutrophils % Lymphocytes % Monocytes % Eosinophils % Basophils % Absolute Neutrophils Absolute Lymphocytes Absolute Monocytes Absolute Eosinophils Absolute Basophils VBG pH 7.23 L VBG pCO2 58.0 VBG HCO3 23.8 VBG Base Excess -4.5 Sodium Potassium Chloride Carbon Dioxide Anion Gap BUN Creatinine Est GFR ( Amer) Est GFR (Non-Af Amer) Glucose Lactic Acid Calcium Total Bilirubin AST ALT Alkaline Phosphatase Total Protein Albumin Urine Color YELLOW Urine Appearance CLEAR Urine pH 8.0 Ur Specific [place] 1.013 Urine Protein >=500 H Urine Glucose (UA) >=500 H Urine Ketones NEGATIVE Urine Blood SMALL H Urine Nitrite NEGATIVE Ur Leukocyte Esterase NEGATIVE Urine WBC (Auto) 5 Urine RBC (Auto) 12 02/15/19 02/15/19 00:36 00:36 Creatine Kinase 69 CK-MB (CK-2) 1.31 NT-Pro-B Natriuret Pep 8840 H Impressions: Chest X-Ray 02/15/19 00:00 IMPRESSION: Persistent right pleural effusion with now some fluid in the fissure plane on the right with continued right lower lung opacity likely representing atelectasis. Assessment and Plan - Diagnosis (1) Acute respiratory failure with hypoxia Is this a current diagnosis for this admission?: Yes Plan: Patient be treated with supplemental oxygen utilizing nasal cannula and or noninvasive airway pressure devices as required to maintain an O2 sat in the desired range of greater than 93%. Frequent O2 sat monitor readings will be obtained during her hospital stay. (2) Chronic obstructive pulmonary disease (COPD) suggested by initial evaluation Is this a current diagnosis for this admission?: Yes Plan: Patient will be treated with an aggressive pulmonary toilet utilizing Xopenex, Pulmicort and Atrovent given via nebulizer. She will receive IV Solu-Medrol and supplemental oxygen will be provided as noted above. A daily CBC, metabolic profile and magnesium level will be obtained. (3) End stage renal failure on dialysis Is this a current diagnosis for this admission?: Yes Plan: Patient will be seen by either Dr. Mortensen or Dr. Gutierres for inpatient dialysis if required. (4) Diabetes mellitus type 2 in nonobese Is this a current diagnosis for this admission?: Yes Plan: Patient be continued on her current medication as well as a diabetic diet. Before meals and at bedtime blood sugars will be obtained and hyper glycemia will be treated with a sliding scale insulin protocol. A hypoglycemic protocol will also be in place. Hemoglobin A1c will be obtained to assess prior therapy efficacy. (5) Hypertension Qualifiers: Hypertension type: essential hypertension Qualified Code(s): I10 - Essential (primary) hypertension Is this a current diagnosis for this admission?: Yes Plan: Patient be continued on her current antihypertensive regiment. Her blood pressure be followed closely throughout her hospital course. - Time Time Spent with patient: 25-34 minutes Smoking Cessation Education: 3 to 10 minutes Medications reviewed and adjusted accordingly: Yes Anticipated discharge: Home - Inpatient Certification Based on my medical assessment, after consideration of the patient's comorbidities, presenting symptoms, or acuity I expect that the services needed warrant INPATIENT care.: Yes I certify that my determination is in accordance with my understanding of Medicare's requirements for reasonable and necessary INPATIENT services [42 CFR 412.3e].: Yes Medical Necessity: Significant Comorbidiites Make Outpatient Treatment Too Risky, Need Close Monitoring Due to Risk of Patient Decompensation, Need for Nebulizer Therapy and Monitoring of Response, Risk of Complication if Not Cared For in Hospital
--- NOTE | 2019-02-15 06:03 | ADVANCED CARE ---
- Diagnosis (1) Acute respiratory failure with hypoxia Diagnosis Current: Yes (2) Chronic obstructive pulmonary disease (COPD) suggested by initial evaluation Diagnosis Current: Yes (4) End stage renal failure on dialysis Diagnosis Current: Yes (5) Hypertension Diagnosis Current: Yes Attendance: Patient and myself. Resuscitation Status: Full Code Discussion: After brief discussion the patient has determined she wishes to be a full code for resuscitation purposes during this hospital stay. She has named Leyla Toth as her designated surrogate medical decision-maker. Care Planning Goals: 1. Patient will be full CODE STATUS for this admission. 2. Leyla Toth is her designated surrogate medical decision-maker. Document(s) Completed: The following entries will be made with the patient's permanent medical record, current medical record and orders via EMR entry: 1. Patient will be full CODE STATUS for this admission. 2. Leyla Toth is her designated surrogate medical decision-maker. Time Spent: 4 minutes
--- NOTE | 2019-02-15 07:01 | EKG REPORT ---
SEVERITY:- BORDERLINE ECG - SINUS TACHYCARDIA PROBABLE LEFT ATRIAL ABNORMALITY : Confirmed by: Deng Holt 15-Feb-2019 07:00:57
[2019-02-15] MEDS: INSULIN REG, HUMAN 100 UNIT/ML 3 ML VIAL (PYX) SUBCUT SCH ×4 (07:24→21:47)
[2019-02-15 07:44] LABS: CREATINE KINASE MB 1.18 ng/mL (<4.55); TROPONIN I 0.039 ng/mL
[2019-02-15 07:50] LABS: FREE T3 3.54 pg/mL (2.77-5.27); FREE T4 (FREE THYROXINE) 0.59 ng/dL (0.78-2.19)
[2019-02-15 08:04] LABS: THYROID STIMULATING HORMONE 0.89 uIU/mL (0.47-4.68)
[2019-02-15] MEDS: LEVALBUTEROL HCL NEB 1.25 MG/3 ML AMPUL NEB SCH ×3 (08:38→23:10)
[2019-02-15] MEDS: IPRATROPIUM BROMIDE 0.02% NEB 0.5 MG/2.5 ML AMPUL NEB SCH ×3 (08:38→23:10)
[2019-02-15] MEDS: BUDESONIDE NEB 0.5 MG/2 ML AMPUL NEB SCH ×2 (08:38→20:45)
[2019-02-15] MEDS: ACETYLCYSTEINE 20% SOLN 800 MG/4 ML VIAL.NEB NEB SCH ×2 (08:38→20:45)
--- NOTE | 2019-02-15 13:20 | PDOC CONSULTATION ---
Consultation Consult Date: 02/15/19 Provider Consulted: Brooke FLORES Consult reason:: ESRD for hemodialysis History of Present Illness Admission Date/PCP: 02/15/19 03:38 IRENE SAMANIEGO History of Present Illness: SAMIA HEALY is a 58 year old female with history of ESRD on hemodialysis in the background of poorly controlled diabetes mellitus, hypertension was admitted with history of progressive shortness of breath including orthopnea of one days duration. Her last dialysis was Friday and she says she had a good fluid removal. She says she is watching her diet but her diabetes has been very poorly controlled with sugars over 500 usually. She did not have any chest pain. She admits to the fact that she has been having a nonproductive cough for the last 1 week or so but denies any history of fever or chills. However when she came in she was found to have a fever of 100 degrees. She was also found to be severely hypertensive at the time of admission and had used Nitropaste by EMS crew who brought her from the house. Chest x-ray shows right lower lobe infiltrate suggestive of atelectasis but given overall clinical picture is more likely she has an early pneumonia. She has been begun on antibiotics along with supportive treatment and today she feels a whole lot better. She is currently undergoing dialysis without any issues. Vital signs are stable. Past Medical History Cardiac Medical History: Reports: Hypertension-primary Denies: Coronary Artery Disease, Myocardial Infarction Pulmonary Medical History: Reports: Pneumonia Denies: Asthma, Bronchitis, Chronic Obstructive Pulmonary Disease (COPD) EENT Medical History: Denies: Cataracts, Ears - Hearing aids Neurological Medical History: Denies: Hemorrhagic CVA, Ischemic CVA, Multiple Sclerosis, Seizures Endocrine Medical History: Reports: Diabetes Mellitus Type 2 Denies: Diabetes Mellitus Type 1, Hyperthyroidism, Hypothyroidism Complications of Diabetes: Reports: None Renal/ Medical History: Reports: End Stage Renal Disease, Secondary Hyperparathyroidism, Other - On hemodialysis Friday and Friday with Dr. Mortensen Denies: Nephrolithiasis Malignancy Medical History: Reports: None GI Medical History: Denies: Cirrhosis, Crohn's Disease, Hepatitis, Ulcerative Colitis Musculoskeltal Medical History: Denies: Arthritis, Fibromyalgia Skin Medical History: Denies: Eczema, Psoriasis Psychiatric Medical History: Reports: Tobacco Dependency Denies: Alcohol Dependency, Depression, Substance Abuse Traumatic Medical History: Reports: None Infectious Medical History: Reports: None Hematology Medical History: Reports Anemia of Chronic Kidney Disease Past Surgical History Past Surgical History: Reports: Appendectomy, Cholecystectomy, Orthopedic Surgery - Foot surgery, bilateral, Tubal Ligation, Vascular Surgery - Hemodialysis vascular access left upper extremity, Other - Hemodialysis vascular access left upper extremity Social History Lives with: Family Smoking Status: Former Smoker - Quit this month Last Time Smoked: 01/24/19 Frequency of Alcohol Use: None Hx Recreational Drug Use: No Drugs: None Hx Prescription Drug Abuse: No - Advance Directive Resuscitation Status: Full Code Family History Parental Family History Reviewed: No Children Family History Reviewed: No Sibling(s) Family History Reviewed.: No Medication/Allergy Home Medications: Gabapentin [Neurontin 100 mg Capsule] 200 mg PO Q12 MDD 600 MG 05/22/18 Insulin Degludec [Tresiba Flextouch U-100] 14 unit SQ ASDIR PRN 05/22/18 Aspirin [Ecotrin] 81 mg PO DAILY 08/24/18 Ferric Citrate [Auryxia] 420 mg PO MEALS 08/24/18 Clonidine [Catapres-Tts 3 (0.3 mg/24 Hr) Transderm Patch] 1 patch TOP .QWEEKLY 02/15/19 Lanthanum Carbonate [Fosrenol] 1 packet PO TID 02/15/19 Varenicline Tartrate [Chantix] 1 each PO 02/15/19 Allergies/Adverse Reactions: Penicillins Allergy (Severe, Verified 08/24/18 11:26) rash ciprofloxacin [From Cipro] Allergy (Verified 02/15/19 00:35) shellfish derived Allergy (Verified 02/15/19 06:20) Swelling of tongue oxycodone [From Percocet] Adverse Reaction (Verified 08/24/18 11:26) Review of Systems Constitutional: PRESENT: weakness. ABSENT: anorexia, chills, fatigue, fever(s), headache(s), night sweats Nose, Mouth, and Throat: ABSENT: mouth pain, sore throat Cardiovascular: PRESENT: dyspnea on exertion, orthropnea. ABSENT: chest pain, edema Respiratory: PRESENT: cough, dyspnea. ABSENT: hemoptysis Gastrointestinal: ABSENT: abdominal pain, bloating, coffee ground emesis, dysphagia, heartburn, hematemesis, melena, nausea, vomiting Genitourinary: ABSENT: dysuria, hematuria Musculoskeletal: ABSENT: deformity, joint swelling Integumentary: ABSENT: erythema, lesions, pruritus, rash Neurological: ABSENT: abnormal speech, confusion, convulsions, focal weakness, frequent falls, lack of coordination Psychiatric: ABSENT: anxiety Hematologic/Lymphatic: ABSENT: easy bleeding, easy bruising Physical Exam Vital Signs: Temp Pulse Resp BP Pulse Ox 97.3 F 83 14 143/57 H 99 02/15/19 05:27 02/15/19 08:39 02/15/19 08:39 02/15/19 05:27 02/15/19 08:39 Intake & Output 02/14/19 02/15/19 02/16/19 06:59 06:59 06:59 Intake Total 50 Balance 50 Weight 50.6 kg General appearance: PRESENT: no acute distress Eye exam: PRESENT: EOMI, PERRLA Ear exam: PRESENT: normal external ear exam Mouth exam: PRESENT: moist, neck supple Neck exam: ABSENT: lymphadenopathy, meningismus, tenderness, thyromegaly, tracheal deviation Respiratory exam: PRESENT: clear to auscultation carlos. ABSENT: crackles Cardiovascular exam: PRESENT: +S1, +S2 GI/Abdominal exam: PRESENT: normal bowel sounds, soft. ABSENT: organomegaly, tenderness Extremities exam: PRESENT: pedal edema Neurological exam: PRESENT: alert, awake, oriented to person, oriented to place Psychiatric exam: PRESENT: appropriate affect. ABSENT: anxious Skin exam: ABSENT: erythema, mottled, rash Results Laboratory Results: 02/15/19 00:36 02/15/19 00:36 02/15/19 02/15/19 02/15/19 00:36 00:36 00:36 WBC 10.9 H RBC 3.43 L Hgb 10.7 L Hct 33.6 L MCV 98 H MCH 31.3 MCHC 32.0 RDW 16.3 H Plt Count 312 Seg Neutrophils % 75.2 Lymphocytes % 15.2 Monocytes % 6.7 Eosinophils % 2.0 Basophils % 0.9 Absolute Neutrophils 8.2 Absolute Lymphocytes 1.7 Absolute Monocytes 0.7 Absolute Eosinophils 0.2 Absolute Basophils 0.1 Carbonic Acid HCO3/H2CO3 Ratio ABG pH ABG pCO2 ABG pO2 ABG HCO3 ABG O2 Saturation ABG Base Excess VBG pH VBG pCO2 VBG HCO3 VBG Base Excess FiO2 Sodium 137.2 Potassium 5.1 H Chloride 96 L Carbon Dioxide 24 Anion Gap 17 BUN 57 H Creatinine 6.08 H Est GFR ( Amer) 9 L Est GFR (Non-Af Amer) 7 L Glucose 610 H* Lactic Acid 1.9 Calcium 8.0 L Total Bilirubin 0.6 AST 16 ALT 18 Alkaline Phosphatase 250 H Total Protein 8.1 Albumin 4.4 TSH Free T4 Free T3 pg/mL Urine Color Urine Appearance Urine pH Ur Specific [place] Urine Protein Urine Glucose (UA) Urine Ketones Urine Blood Urine Nitrite Ur Leukocyte Esterase Urine WBC (Auto) Urine RBC (Auto) 02/15/19 02/15/19 02/15/19 00:36 00:59 05:40 WBC RBC Hgb Hct MCV MCH MCHC RDW Plt Count Seg Neutrophils % Lymphocytes % Monocytes % Eosinophils % Basophils % Absolute Neutrophils Absolute Lymphocytes Absolute Monocytes Absolute Eosinophils Absolute Basophils Carbonic Acid 1.37 H HCO3/H2CO3 Ratio 15:1 ABG pH 7.28 L ABG pCO2 45.5 H ABG pO2 150.6 H ABG HCO3 21.0 ABG O2 Saturation 98.7 H ABG Base Excess -5.4 VBG pH 7.23 L VBG pCO2 58.0 VBG HCO3 23.8 VBG Base Excess -4.5 FiO2 32% Sodium Potassium Chloride Carbon Dioxide Anion Gap BUN Creatinine Est GFR ( Amer) Est GFR (Non-Af Amer) Glucose Lactic Acid Calcium Total Bilirubin AST ALT Alkaline Phosphatase Total Protein Albumin TSH Free T4 Free T3 pg/mL Urine Color YELLOW Urine Appearance CLEAR Urine pH 8.0 Ur Specific [place] 1.013 Urine Protein >=500 H Urine Glucose (UA) >=500 H Urine Ketones NEGATIVE Urine Blood SMALL H Urine Nitrite NEGATIVE Ur Leukocyte Esterase NEGATIVE Urine WBC (Auto) 5 Urine RBC (Auto) 12 02/15/19 06:08 WBC RBC Hgb Hct MCV MCH MCHC RDW Plt Count Seg Neutrophils % Lymphocytes % Monocytes % Eosinophils % Basophils % Absolute Neutrophils Absolute Lymphocytes Absolute Monocytes Absolute Eosinophils Absolute Basophils Carbonic Acid HCO3/H2CO3 Ratio ABG pH ABG pCO2 ABG pO2 ABG HCO3 ABG O2 Saturation ABG Base Excess VBG pH VBG pCO2 VBG HCO3 VBG Base Excess FiO2 Sodium Potassium Chloride Carbon Dioxide Anion Gap BUN Creatinine Est GFR ( Amer) Est GFR (Non-Af Amer) Glucose Lactic Acid Calcium Total Bilirubin AST ALT Alkaline Phosphatase Total Protein Albumin TSH 0.89 Free T4 0.59 L Free T3 pg/mL 3.54 Urine Color Urine Appearance Urine pH Ur Specific [place] Urine Protein Urine Glucose (UA) Urine Ketones Urine Blood Urine Nitrite Ur Leukocyte Esterase Urine WBC (Auto) Urine RBC (Auto) 02/15/19 02/15/19 02/15/19 00:36 00:36 06:08 Creatine Kinase 69 CK-MB (CK-2) 1.31 1.18 Troponin I 0.039 NT-Pro-B Natriuret Pep 8840 H 06338 H 02/15/19 06:08 Creatine Kinase 55 CK-MB (CK-2) Troponin I NT-Pro-B Natriuret Pep Impressions: Chest X-Ray 02/15/19 00:00 IMPRESSION: Persistent right pleural effusion with now some fluid in the fissure plane on the right with continued right lower lung opacity likely representing atelectasis. Assessment & Plan - Diagnosis (1) Acute respiratory failure with hypoxia Is this a current diagnosis for this admission?: Yes Plan: Secondary to pneumonia. Presently better. (2) Pneumonia Plan: Clinically it looks like she has a pneumonia even though the chest x-ray is ambiguous. I would treat her as such. (3) End stage renal failure on dialysis Is this a current diagnosis for this admission?: Yes Plan: Patient currently undergoing dialysis without any issues. Vital signs are stable. Dialysis is being supervised to ensure safe and smooth procedure. Plan to remove between 1 and 2 L as tolerated. Dialysis orders were reviewed the treating dialysis nurse. (4) Diabetes mellitus type 2 in nonobese Is this a current diagnosis for this admission?: Yes Plan: Advised the need for better control for obvious reasons. Patient seems rather nonchalant. (5) Hyperkalemia Plan: Should respond to dialysis. Advised on low potassium diet and we discussed the consequences of high pottassium. (6) Hypertensive emergency Plan: Currently much improved. See response to dialysis as well.
[2019-02-15] MEDS: DOCUSATE SODIUM 100 MG CAPSULE PO SCH ×2 (13:43→17:09)
[2019-02-15] MEDS: AZITHROMYCIN 250 MG TABLET PO SCH (13:43)
[2019-02-15 14:20] LABS: CREATINE KINASE MB 1.53 ng/mL (<4.55); TROPONIN I 0.045 ng/mL
[2019-02-15 19:17] LABS: CREATINE KINASE MB 1.25 ng/mL (<4.55); TROPONIN I 0.033 ng/mL
[2019-02-15] MEDS ORDERED: INSULIN GLARGINE,HUM.REC.ANLOG 1,000 UNIT/10 ML VIAL SUBCUT SCH (22:00)
[2019-02-16] MEDS: METHYLPREDNISOLONE INJ 40 MG/1 ML SDV IV SCH (05:50)
[2019-02-16] MEDS: HEPARIN SOD (PORCINE) 5,000 UNIT/ML 1 ML VIAL SUBCUT SCH (05:50)
[2019-02-16] MEDS: PANTOPRAZOLE SODIUM 40 MG TABLET.DR PO SCH (05:50)
[2019-02-16 06:40] LABS: ABSOLUTE LYMPHOCYTES (AUTO) 1.1 10^3/uL (0.5-4.7); ABSOLUTE MONOCYTES (AUTO) 0.5 10^3/uL (0.1-1.4); ABSOLUTE NEUT (AUTO) 11.6 10^3/uL (1.7-8.2); BASOPHILS % (AUTO) 0.2 % (0-2); EOSINOPHILS % (AUTO) 0.1 % (0-6); HEMATOCRIT 28.7 % (36.0-47.0); HEMOGLOBIN 9.7 g/dL (12.0-15.5); LYMPHOCYTES % (AUTO) 8.4 % (13-45); MEAN CORPUSCULAR HEMOGLOBIN 31.3 pg (27.0-33.4); MEAN CORPUSCULAR HGB CONC 33.7 g/dL (32.0-36.0); MEAN CORPUSCULAR VOLUME 93 fl (80-97); PLATELET COUNT 255 10^3/uL (150-450); RED BLOOD COUNT 3.09 10^6/uL (3.72-5.28); RED CELL DISTRIBUTION WIDTH 16.3 % (11.5-14.0); SEGMENTED NEUTROPHILS % (AUTO) 87.3 % (42-78); TOTAL CELLS COUNTED % (AUTO) 100 %; WHITE BLOOD COUNT 13.2 10^3/uL (4.0-10.5)
[2019-02-16 06:51] LABS: CHOLESTEROL 179.28 mg/dL (0-200); TRIGLYCERIDES 45 mg/dL (<150)
[2019-02-16 06:56] LABS: ALANINE AMINOTRANSFERASE 17 U/L (9-52); ALBUMIN 4.4 g/dL (3.5-5.0); ALKALINE PHOSPHATASE 147 U/L (38-126); ASPARTATE AMINO TRANSFERASE 17 U/L (14-36); BILIRUBIN,DIRECT 0.6 mg/dL (0.0-0.4); BILIRUBIN,TOTAL 0.6 mg/dL (0.2-1.3); BLOOD UREA NITROGEN 62 mg/dL (7-20); CALCIUM 8.8 mg/dL (8.4-10.2); CHLORIDE 92 mmol/L (98-107); GLUCOSE 324 mg/dL (75-110); POTASSIUM 5.1 mmol/L (3.6-5.0)
[2019-02-16 07:02] LABS: CARBON DIOXIDE 22 mmol/L (22-30); DIRECT LDL 87 mg/dL (<100)
[2019-02-16 07:04] LABS: ANION GAP 20 (5-19)
[2019-02-16] MEDS: BUDESONIDE NEB 0.5 MG/2 ML AMPUL NEB SCH (07:58)
[2019-02-16] MEDS: ACETYLCYSTEINE 20% SOLN 800 MG/4 ML VIAL.NEB NEB SCH (07:58)
[2019-02-16] MEDS: IPRATROPIUM BROMIDE 0.02% NEB 0.5 MG/2.5 ML AMPUL NEB SCH (07:58)
[2019-02-16] MEDS: LEVALBUTEROL HCL NEB 1.25 MG/3 ML AMPUL NEB SCH (07:58)
[2019-02-16] MEDS: INSULIN REG, HUMAN 100 UNIT/ML 3 ML VIAL (PYX) SUBCUT SCH ×2 (08:19→11:59)
[2019-02-16] MEDS: DOCUSATE SODIUM 100 MG CAPSULE PO SCH (09:40)
[2019-02-16] MEDS: AZITHROMYCIN 250 MG TABLET PO SCH (09:40)
[2019-02-16] MEDS ORDERED: INSULIN GLARGINE,HUM.REC.ANLOG 1,000 UNIT/10 ML VIAL SUBCUT SCH (10:00)
[2019-02-16] MEDS ORDERED: GABAPENTIN 100 MG CAPSULE PO SCH (10:00)
[2019-02-16] MEDS ORDERED: ASPIRIN 81 MG TABLET, ENT COATED PO SCH (10:00)
[2019-02-16] MEDS ORDERED: LANTHANUM CARBONATE 500 MG TAB.CHEW PO SCH (12:00)
[2019-02-16] MEDS ORDERED: LANTHANUM CARBONATE PO SCH (12:00)
[2019-02-16 12:03] VITALS: BP 150/68
--- NOTE | 2019-02-16 12:09 | Left Against Medical Advice ---
Against Medical Advice Admission Date/Time: 02/15/19 03:38 Primary Care Provider: IRENE SAMANIEGO Date of Patient Emigration: 02/16/19 - Diagnosis: (1) Acute respiratory failure with hypoxia Is this a current diagnosis for this admission?: Yes (2) Chronic obstructive pulmonary disease (COPD) suggested by initial evaluation Is this a current diagnosis for this admission?: Yes (3) End stage renal failure on dialysis Is this a current diagnosis for this admission?: Yes (4) Diabetes mellitus type 2 in nonobese Is this a current diagnosis for this admission?: Yes (5) Hypertension Is this a current diagnosis for this admission?: Yes - Summary: Summary: Please see Admission and Progress Notes as well. SAMIA HEALY is a 58 F, who LEFT AGAINST MEDICAL ADVICE. The Patient was admitted on 02/15/19 03:38. The 8-year-old female with history of ESRD on hemodialysis Friday and Friday admitted over the weekend had a dialysis yesterday morning. She came in with acute on chronic respiratory failure with hypoxia which was resolved. No complications during the hospital stay and WBC count is still elevated and serum potassium is 5.1 and cultures are pending. Events in the last 24 hours afebrile. Patient is expressing desire to go home today I tried to explain to her in my best to convince her to stay at the hospital at least another 24 hours for possible dialysis tomorrow and continuation of the nebulizer treatments and antibiotic therapy patient understood the risks and verbalized response but still decided to go AGAINST MEDICAL ADVICE and signed the papers.
[2019-02-19] MEDS ORDERED: CLONIDINE 0.3 MG/24 HR PATCH.TDWK TOP SCH (10:00)
== END 2019-02-16 13:57 | disposition left against medical advice (07) | DRG 193 ==
LOC: ER 00:23 → EH 03:38 → 4S 05:05
PROVIDERS: ADMIT Emergency Medicine; ATTEND Emergency Medicine
PROC: 5A1D70Z Performance of Urinary Filtration, Intermittent, Less than 6 Hours Per Day (ICD-10-PCS; principal; 2019-02-15)
DX: J18.9 Pneumonia, unspecified organism (principal); N18.6 End stage renal disease; J96.21 Acute and chronic respiratory failure with hypoxia; I12.0 Hypertensive chronic kidney disease with stage 5 chronic kidney disease or end stage renal disease; N25.81 Secondary hyperparathyroidism of renal origin; I16.1 Hypertensive emergency; J44.9 Chronic obstructive pulmonary disease, unspecified; E11.22 Type 2 diabetes mellitus with diabetic chronic kidney disease; E87.5 Hyperkalemia; D63.1 Anemia in chronic kidney disease; Z99.2 Dependence on renal dialysis; Z79.82 Long term (current) use of aspirin; Z79.4 Long term (current) use of insulin; Z79.899 Other long term (current) drug therapy; Z87.891 Personal history of nicotine dependence
CPT/HCPCS: 36415; 36600; 71045; 80053; 80061; 81001; 82550; 82553; 82803; 82962; 83036; 83605; 83735; 83880; 84439; 84443; 84481; 84484; 85025; 85610; 87040; 87070; 87086; 93005; 93010; 94640; 94660; 96365; 96367; 99285; J0696; J1644; J1815; J2920; J3370; J3490; J7614; J7620

== ENCOUNTER 2019-02-22 19:25 | Inpatient (IN) | payer MEDICARE, MEDICAID ==
[2019-02-22] MEDS ORDERED: HYDRALAZINE HCL INJ/PF 20 MG/1 ML SDV IV ONE ×2 (19:35→21:16)
--- NOTE | 2019-02-22 19:35 | ER Document Report ---
ED General - General Stated Complaint: DIFFICULTY BREATHING Time Seen by Provider: 02/22/19 19:32 Primary Care Provider: IRENE SAMANIEGO MD [Primary Care Provider] - Follow up as needed TRAVEL OUTSIDE OF THE [place] IN LAST 30 DAYS: No - HPI Patient complains to provider of: SOB Onset: This morning Onset/Duration: Gradual Quality of pain: No pain Severity: None Pain Level: Denies Notes: 58 y/o T/Th/Sat dialysis patient presenting to ED for evaluation of SOB she was brought to ED on CPAP which was started due to tachypnea - never hypoxic no chest pain she denies h/o CHF or COPD - Related Data Allergies/Adverse Reactions: Penicillins Allergy (Severe, Verified 02/22/19 19:28) rash ciprofloxacin [From Cipro] Allergy (Verified 02/22/19 19:28) shellfish derived Allergy (Verified 02/22/19 19:28) Swelling of tongue oxycodone [From Percocet] Adverse Reaction (Verified 02/22/19 19:28) Past Medical History - Social History Smoking Status: Unknown if Ever Smoked Family History: DM, Hypertension - Past Medical History Cardiac Medical History: Reports: Hx Hypertension Denies: Hx Coronary Artery Disease, Hx Heart Attack Pulmonary Medical History: Denies: Hx Asthma, Hx Bronchitis, Hx COPD, Hx Pneumonia Neurological Medical History: Denies: Hx Cerebrovascular Accident, Hx Seizures Endocrine Medical History: Reports: Hx Diabetes Mellitus Type 1, Hx Diabetes Mellitus Type 2. Denies: Hx Hyperthyroidism, Hx Hypothyroidism Renal/ Medical History: Reports: Hx End Stage Renal Disease, Hx Hemodialysis. Denies: Hx Peritoneal Dialysis GI Medical History: Denies: Hx Cirrhosis, Hx Crohn's Disease, Hx Hepatitis, Hx Ulcerative Colitis Musculoskeletal Medical History: Denies Hx Arthritis, Denies Hx Fibromyalgia Skin Medical History: Denies Hx Eczema, Denies Hx Psoriasis Psychiatric Medical History: Denies: Hx Depression Infectious Medical History: Denies: Hx Hepatitis Past Surgical History: Reports: Hx Appendectomy, Hx Cholecystectomy, Hx Orthopedic Surgery - feet, Hx Tubal Ligation, Hx Vascular Surgery - fistula upper arm, Other - Hemodialysis vascular access left upper extremity - Immunizations Hx Diphtheria, Pertussis, Tetanus Vaccination: No Hx Pneumococcal Vaccination: 07/21/16 Review of Systems - Review of Systems Constitutional: No symptoms reported EENT: No symptoms reported Cardiovascular: No symptoms reported Respiratory: Short of breath Gastrointestinal: No symptoms reported Genitourinary: No symptoms reported Female Genitourinary: No symptoms reported Musculoskeletal: No symptoms reported Skin: No symptoms reported Hematologic/Lymphatic: No symptoms reported Neurological/Psychological: No symptoms reported Physical Exam - Vital signs Vitals: Resp Pulse Ox 39 H 95 02/22/19 19:28 02/22/19 19:28 Interpretation: Normal - General General appearance: Alert, Anxious In distress: Moderate - HEENT Head: Normocephalic, Atraumatic Eyes: Normal Pupils: PERRL - Respiratory Respiratory status: Respiratory distress, Tachypnea Chest status: Nontender Breath sounds: Decreased air movement Chest palpation: Normal - Cardiovascular Rhythm: Regular Heart sounds: Normal auscultation Murmur: No - Abdominal Inspection: Normal Distension: No distension Bowel sounds: Normal Tenderness: Nontender Organomegaly: No organomegaly - Back Back: Normal, Nontender - Extremities General upper extremity: Normal inspection, Nontender, Normal color, Normal ROM, Normal temperature General lower extremity: Normal inspection, Nontender, Normal color, Normal ROM, Normal temperature, Normal weight bearing. No: Damien's sign - Neurological Neuro grossly intact: Yes Cognition: Normal Orientation: AAOx4 [place]ita Coma Scale Eye Opening: Spontaneous [place] Coma Scale Verbal: Oriented [place] Coma Scale Motor: Obeys Commands [place] Coma Scale Total: 15 Speech: Normal Motor strength normal: LUE, RUE, LLE, RLE Sensory: Normal - Psychological Associated symptoms: Normal affect, Normal mood - Skin Skin Temperature: Warm Skin Moisture: Dry Skin Color: Normal Course - Re-evaluation Re-evalutation: 02/22/19 21:22 maintained on bipap for resp support bp improved w/ treatment and symptomatology did as well given calcium, insulin, bicarb while in ED also given lasix as she states she makes urine admit requested 02/22/19 21:24 discussed w/ Dr Villegas and Dr Harrington prior to admit - Vital Signs Vital signs: Temp Pulse Resp BP Pulse Ox 100.9 F H 34 H 182/71 H 100 02/22/19 19:52 02/22/19 20:31 02/22/19 20:31 02/22/19 20:31 - Laboratory Result Diagrams: 02/22/19 19:30 02/22/19 19:30 Laboratory results interpreted by me: 02/22/19 02/22/19 02/22/19 19:30 19:30 19:30 RBC 3.11 L Hgb 9.8 L Hct 30.0 L RDW 16.7 H Carbonic Acid ABG pH ABG pCO2 ABG pO2 ABG HCO3 ABG Total CO2 ABG O2 Saturation Sodium 135.2 L Potassium 5.9 H Chloride 91 L Anion Gap 21 H BUN 82 H Creatinine 7.36 H Est GFR ( Amer) 7 L Est GFR (Non-Af Amer) 6 L Glucose 415 H* Calcium 7.3 L Direct Bilirubin 0.7 H Alkaline Phosphatase 235 H NT-Pro-B Natriuret Pep 56032 H Total Protein 8.9 H 02/22/19 20:03 RBC Hgb Hct RDW Carbonic Acid 1.65 H ABG pH 7.27 L ABG pCO2 54.7 H ABG pO2 41.6 L ABG HCO3 24.4 H ABG Total CO2 26.1 H ABG O2 Saturation 69.3 L Sodium Potassium Chloride Anion Gap BUN Creatinine Est GFR ( Amer) Est GFR (Non-Af Amer) Glucose Calcium Direct Bilirubin Alkaline Phosphatase NT-Pro-B Natriuret Pep Total Protein - EKG Interpretation by Me EKG shows normal: Sinus rhythm Rate: Normal - 99 Rhythm: NSR [place]/QRS: No: Right axis deviation, Left axis deviation, RBBB, LBBB, IVCD, LAHB/LAFB, LPHB/LPFB, Bifasicular block Voltage: No: Increased voltage, Consistant with LVH, Decreased voltage, Throughout, Limb leads P Waves: LAE Additional EKG results interpreted by me: 02/22/19 21:23 mild peaking of T waves. normal OH interval Critical Care Note - Critical Care Note Total time excluding time spent on procedures (mins): 35 Comments: bipap for resp support reversal of hyperkalemia concern for respiratory and renal failure Discharge - Discharge Clinical Impression: Hypertensive emergency, End stage renal failure on dialysis Pulmonary edema Qualifiers: Chronicity: acute Qualified Code(s): J81.0 - Acute pulmonary edema Disposition: ADMITTED INPATIENT Admitting Provider: Bakari (Hospitalist) Unit Admitted: ICU Referrals: IRENE SAMANIEGO MD [Primary Care Provider] - Follow up as needed
[2019-02-22] MEDS ORDERED: FUROSEMIDE INJ/PF 40 MG/4 ML SDV IV ONE (19:36)
[2019-02-22 20:08] LABS: ABSOLUTE BASOPHILS # (AUTO) 0.1 10^3/uL (0.0-0.2); ABSOLUTE EOSINOPHILS # (AUTO) 0.1 10^3/uL (0.0-0.6); ABSOLUTE LYMPHOCYTES (AUTO) 1.6 10^3/uL (0.5-4.7); ABSOLUTE MONOCYTES (AUTO) 0.8 10^3/uL (0.1-1.4); ABSOLUTE NEUT (AUTO) 7.6 10^3/uL (1.7-8.2); BASOPHILS % (AUTO) 0.9 % (0-2); EOSINOPHILS % (AUTO) 1.1 % (0-6); HEMOGLOBIN 9.8 g/dL (12.0-15.5); LYMPHOCYTES % (AUTO) 15.9 % (13-45); MEAN CORPUSCULAR HEMOGLOBIN 31.4 pg (27.0-33.4); MEAN CORPUSCULAR HGB CONC 32.6 g/dL (32.0-36.0); MEAN CORPUSCULAR VOLUME 96 fl (80-97); MONOCYTES % (AUTO) 7.7 % (3-13); PLATELET COUNT 343 10^3/uL (150-450); RED BLOOD COUNT 3.11 10^6/uL (3.72-5.28); RED CELL DISTRIBUTION WIDTH 16.7 % (11.5-14.0); SEGMENTED NEUTROPHILS % (AUTO) 74.4 % (42-78); TOTAL CELLS COUNTED % (AUTO) 100 %; WHITE BLOOD COUNT 10.2 10^3/uL (4.0-10.5)
[2019-02-22 20:25] LABS: INTERNATIONAL RATION (INR) 0.96; PROTHROMBIN TIME 12.8 SEC (11.4-15.4)
[2019-02-22 20:26] LABS: PARTIAL THROMBOPLASTIN TIME 25.2 SEC (23.5-35.8)
[2019-02-22 20:32] LABS: ALBUMIN 4.8 g/dL (3.5-5.0); ALKALINE PHOSPHATASE 235 U/L (38-126); ASPARTATE AMINO TRANSFERASE 30 U/L (14-36); BILIRUBIN,DIRECT 0.7 mg/dL (0.0-0.4); BILIRUBIN,TOTAL 0.7 mg/dL (0.2-1.3); BLOOD UREA NITROGEN 82 mg/dL (7-20); CALCIUM 7.3 mg/dL (8.4-10.2); CREATINE KINASE 89 U/L (30-135); POTASSIUM 5.9 mmol/L (3.6-5.0); TOTAL PROTEIN 8.9 g/dL (6.3-8.2)
[2019-02-22 20:43] LABS: CREATINE KINASE MB 1.91 ng/mL (<4.55); TROPONIN I 0.012 ng/mL
[2019-02-22 20:44] LABS: CARBON DIOXIDE 23 mmol/L (22-30); CHLORIDE 91 mmol/L (98-107)
[2019-02-22 20:45] LABS: ANION GAP 21 (5-19)
[2019-02-22 20:49] LABS: GLUCOSE 415 mg/dL (75-110)
[2019-02-22] MEDS ORDERED: INSULIN REG, HUMAN 100 UNIT/ML 3 ML VIAL (PYX) IV ONE (20:51)
[2019-02-22] MEDS ORDERED: CALCIUM GLUCONATE 1000 MG/10 ML INJ IV ONE (21:07)
[2019-02-22] MEDS ORDERED: SODIUM BICARBONATE 8.4% INJ 50 MEQ/50 ML DISP.SYRIN IV ONE (21:08)
[2019-02-22 21:13] LABS: ARTERIAL BLOOD BASE EXCESS -2.9 mmol/L; ARTERIAL BLOOD FIO2 30%; ARTERIAL BLOOD H2CO3 1.65 mmol/L (1.05-1.35); ARTERIAL BLOOD HCO3 24.4 mmol/L (20-24); ARTERIAL BLOOD O2 SATURATION 69.3 % (94-98); ARTERIAL BLOOD PCO2 54.7 mmHg (35-45); ARTERIAL BLOOD PH 7.27 (7.35-7.45); ARTERIAL BLOOD PO2 41.6 mmHg (80-100); ARTERIAL BLOOD TOTAL CO2 26.1 mmol/L (21-25)
--- NOTE | 2019-02-22 21:31 | RADIOLOGY REPORT (SQ) ---
EXAM DESCRIPTION: XR CHEST 1 VIEW COMPLETED DATE/TME: 02/22/2019 00:00 CLINICAL HISTORY: 58 years, Female, shortness of breath Compared to 02/15/2019. FINDINGS: The heart is mildly enlarged. Aorta is within normal limits. Mild right pleural effusion. Small left pleural effusion. No pneumothorax. No pulmonary edema. IMPRESSION: Small to mild bilateral pleural effusions.
[2019-02-22] MEDS ORDERED: DEXTROSE 50%-WATER 25 GM/50 ML DISP.SYRIN IV PRN ×2 (21:35)
[2019-02-22] MEDS ORDERED: DEXTROSE 40% GEL 15 GM TUBE PO PRN ×2 (21:35)
[2019-02-22] MEDS ORDERED: IPRATROPIUM/ALBUTEROL 0.5-2.5 MG/3 ML AMPUL NEB PRN (21:35)
[2019-02-22] MEDS ORDERED: GLUCAGON,HUMAN RECOMB 1 MG INJ IM PRN (21:35)
[2019-02-22] MEDS ORDERED: HYDRALAZINE HCL INJ/PF 20 MG/1 ML SDV IV PRN (21:35)
[2019-02-22] MEDS: HEPARIN SOD (PORCINE) 5,000 UNIT/ML 1 ML VIAL SUBCUT SCH (21:54)
[2019-02-22] MEDS: INSULIN GLARGINE,HUM.REC.ANLOG 1,000 UNIT/10 ML VIAL SUBCUT SCH (21:56)
[2019-02-22] MEDS ORDERED: LACTULOSE SYRUP 20 GM/30 ML UDCUP PO ONE (22:00)
[2019-02-22] MEDS ORDERED: CLONIDINE HCL 0.2 MG TABLET PO ONE (22:00)
[2019-02-22] MEDS ORDERED: CLONIDINE 0.3 MG/24 HR PATCH.TDWK TD ONE (22:00)
[2019-02-22] MEDS ORDERED: CLONIDINE 0.3 MG/24 HR PATCH.TDWK ONE (22:17)
[2019-02-23] MEDS: INSULIN LISPRO 100 UNIT/ML 3 ML VIAL SUBCUT SCH ×3 (00:35→18:06)
--- NOTE | 2019-02-23 03:55 | PDOC H&P ---
History of Present Illness Admission Date/PCP: 02/22/19 22:05 IRENE SAMANIEGO Patient complains of: Shortness of breath History of Present Illness: SAMIA HEALY is a 58 year old female with a past medical history of diabetes, COPD, noncompliance and hemodialysis dependent end-stage and anuric renal failure at [facility] in [place] Saturdays. She presents with 8 hours of shortness of breath, nonproductive cough no chest pain or palpitations but is found to have an 240/80 acute hypercapnic respiratory failure. She denies opiates or narcotics reducing respiratory drive she denies fever, noncompliance with medication, lifestyle or hemodialysis. She is placed on BiPAP and referred to the hospitalist for admission she presents today only 6 days after leaving AGAINST MEDICAL ADVICE following a similar presentation. Past Medical History Cardiac Medical History: Reports: Hypertension Denies: Coronary Artery Disease, Myocardial Infarction Pulmonary Medical History: Denies: Asthma, Bronchitis, Chronic Obstructive Pulmonary Disease (COPD), Pneumonia Neurological Medical History: Denies: Seizures Endocrine Medical History: Reports: Diabetes Mellitus Type 1, Diabetes Mellitus Type 2 Denies: Hyperthyroidism, Hypothyroidism Renal/ Medical History: Reports: End Stage Renal Disease GI Medical History: Denies: Cirrhosis, Crohn's Disease, Hepatitis, Ulcerative Colitis Musculoskeltal Medical History: Denies: Arthritis, Fibromyalgia Skin Medical History: Denies: Eczema, Psoriasis Psychiatric Medical History: Denies: Depression Hematology: Denies: Anemia, Bleeding Tendencies Past Surgical History Past Surgical History: Reports: Appendectomy, Cholecystectomy, Orthopedic Surgery - feet, Tubal Ligation, Vascular Surgery - fistula upper arm, Other - Hemodialysis vascular access left upper extremity Social History Information Source: Patient Smoking Status: Former Smoker Number of Years Smokin Last Time Smoked: 01/24/2019 Frequency of Alcohol Use: None Hx Recreational Drug Use: No Drugs: None Hx Prescription Drug Abuse: No - Advance Directive Resuscitation Status: Full Code Family History Family History: DM, Hypertension Parental Family History Reviewed: Yes Children Family History Reviewed: Yes Sibling(s) Family History Reviewed.: Yes Medication/Allergy Home Medications: Gabapentin [Neurontin 100 mg Capsule] 200 mg PO Q12 MDD 600 MG 05/22/18 Insulin Degludec [Tresiba Flextouch U-100] 16 unit SQ QPM 05/22/18 Aspirin [Ecotrin] 81 mg PO DAILY 08/24/18 Ferric Citrate [Auryxia] 420 mg PO MEALS 08/24/18 Clonidine [Catapres-Tts 3 (0.3 mg/24 Hr) Transderm Patch] 1 patch TOP FR@1000 02/15/19 Insulin Aspart [Novolog Insulin 100 Unit/1 ml 10 ml] 9 unit SUBCUT TID 02/15/19 Lanthanum Carbonate [Fosrenol] 1 packet PO MEALS 02/15/19 Varenicline Tartrate [Chantix 1 Mg Tablet] 1 mg PO DAILY 02/15/19 Allergies/Adverse Reactions: Penicillins Allergy (Severe, Verified 02/22/19 19:28) rash ciprofloxacin [From Cipro] Allergy (Verified 02/22/19 19:28) shellfish derived Allergy (Verified 02/22/19 19:28) Swelling of tongue oxycodone [From Percocet] Adverse Reaction (Verified 02/22/19 19:28) Review of Systems Constitutional: PRESENT: as per HPI, fatigue, weight gain. ABSENT: fever(s), weight loss Eyes: ABSENT: visual disturbances Ears: ABSENT: hearing changes Cardiovascular: PRESENT: as per HPI, dyspnea on exertion, edema, orthropnea. ABSENT: chest pain, palpitations Respiratory: PRESENT: dyspnea. ABSENT: cough, hemoptysis, sputum Gastrointestinal: ABSENT: abdominal pain, constipation, diarrhea, hematemesis, hematochezia, nausea, vomiting Genitourinary: ABSENT: dysuria, hematuria Musculoskeletal: ABSENT: joint swelling Integumentary: ABSENT: rash, wounds Neurological: ABSENT: abnormal gait, abnormal speech, confusion, dizziness, focal weakness, syncope Psychiatric: ABSENT: anxiety, depression, homidical ideation, suicidal ideation Endocrine: ABSENT: cold intolerance, heat intolerance, polydipsia, polyuria Hematologic/Lymphatic: PRESENT: as per HPI Physical Exam Vital Signs: Temp Pulse Resp BP Pulse Ox 98.0 F 85 20 109/53 L 100 02/23/19 01:35 02/23/19 01:26 02/23/19 02:34 02/23/19 02:34 02/23/19 02:34 Intake & Output 02/21/19 02/22/19 02/23/19 11:59 11:59 11:59 Weight 72.1 kg General appearance: PRESENT: cooperative, mild distress, well-developed, well-nourished Head exam: PRESENT: atraumatic, normocephalic Eye exam: PRESENT: conjunctiva pink, EOMI, PERRLA. ABSENT: scleral icterus Ear exam: PRESENT: normal external ear exam Mouth exam: PRESENT: moist, tongue midline Neck exam: ABSENT: carotid bruit, JVD, lymphadenopathy, thyromegaly Respiratory exam: PRESENT: crackles, prolonged expiratory phas, retraction, symmetrical, tachypnea. ABSENT: rales, rhonchi, wheezes Cardiovascular exam: PRESENT: RRR. ABSENT: diastolic murmur, rubs, systolic murmur Pulses: PRESENT: normal dorsalis pedis pul Vascular exam: PRESENT: normal capillary refill GI/Abdominal exam: PRESENT: normal bowel sounds, soft. ABSENT: distended, guarding, mass, organolmegaly, rebound, tenderness Rectal exam: PRESENT: deferred Extremities exam: PRESENT: full ROM, +1 edema. ABSENT: calf tenderness, clubbing, pedal edema Neurological exam: PRESENT: alert, awake, oriented to person, oriented to place, oriented to time, oriented to situation, CN II-XII grossly intact. ABSENT: motor sensory deficit Psychiatric exam: PRESENT: appropriate affect, normal mood. ABSENT: homicidal ideation, suicidal ideation Skin exam: PRESENT: dry, intact, warm. ABSENT: cyanosis, rash Results Laboratory Results: 02/22/19 19:30 02/22/19 19:30 02/22/19 02/22/19 02/22/19 19:30 19:30 20:03 WBC 10.2 RBC 3.11 L Hgb 9.8 L Hct 30.0 L MCV 96 MCH 31.4 MCHC 32.6 RDW 16.7 H Plt Count 343 Seg Neutrophils % 74.4 Lymphocytes % 15.9 Monocytes % 7.7 Eosinophils % 1.1 Basophils % 0.9 Absolute Neutrophils 7.6 Absolute Lymphocytes 1.6 Absolute Monocytes 0.8 Absolute Eosinophils 0.1 Absolute Basophils 0.1 Carbonic Acid 1.65 H HCO3/H2CO3 Ratio 14:1 ABG pH 7.27 L ABG pCO2 54.7 H ABG pO2 41.6 L ABG HCO3 24.4 H ABG O2 Saturation 69.3 L ABG Base Excess -2.9 FiO2 30% Sodium 135.2 L Potassium 5.9 H Chloride 91 L Carbon Dioxide 23 Anion Gap 21 H BUN 82 H Creatinine 7.36 H Est GFR ( Amer) 7 L Est GFR (Non-Af Amer) 6 L Glucose 415 H* Calcium 7.3 L Total Bilirubin 0.7 AST 30 Alkaline Phosphatase 235 H Total Protein 8.9 H Albumin 4.8 02/22/19 02/22/19 19:30 19:30 Creatine Kinase 89 CK-MB (CK-2) 1.91 Troponin I 0.012 NT-Pro-B Natriuret Pep [id number] H Impressions: Chest X-Ray 02/22/19 00:00 IMPRESSION: Small to mild bilateral pleural effusions. Assessment and Plan - Diagnosis (1) Hypertensive emergency Is this a current diagnosis for this admission?: Yes Plan: Suspecting noncompliance with medication, clonidine initiated, Norvasc and hydralazine as needed. (2) Acute hypercapnic respiratory failure Is this a current diagnosis for this admission?: Yes Plan: Unclear cause, BiPAP, albuterol as needed (3) End stage renal failure on dialysis Is this a current diagnosis for this admission?: Yes Plan: N.p.o., avoid additional IV fluids, follow-up nephrology consult for dialysis (4) Pulmonary edema Qualifiers: Chronicity: acute Qualified Code(s): J81.0 - Acute pulmonary edema Is this a current diagnosis for this admission?: Yes Plan: BiPAP and blood pressure reduction (5) Anemia of renal disease Is this a current diagnosis for this admission?: Yes Plan: Follow-up anemia labs and follow-up nephrology consult - Time Time Spent with patient: 25-34 minutes - Inpatient Certification Medical Necessity: Need Close Monitoring Due to Risk of Patient Decompensation
[2019-02-23 05:47] LABS: ABSOLUTE BASOPHILS # (AUTO) 0.1 10^3/uL (0.0-0.2); ABSOLUTE EOSINOPHILS # (AUTO) 0.1 10^3/uL (0.0-0.6); ABSOLUTE LYMPHOCYTES (AUTO) 1.7 10^3/uL (0.5-4.7); ABSOLUTE MONOCYTES (AUTO) 0.8 10^3/uL (0.1-1.4); BASOPHILS % (AUTO) 0.6 % (0-2); EOSINOPHILS % (AUTO) 1.4 % (0-6); HEMATOCRIT 22.1 % (36.0-47.0); LYMPHOCYTES % (AUTO) 17.8 % (13-45); MEAN CORPUSCULAR HEMOGLOBIN 31.8 pg (27.0-33.4); MEAN CORPUSCULAR HGB CONC 33.8 g/dL (32.0-36.0); MEAN CORPUSCULAR VOLUME 94 fl (80-97); MONOCYTES % (AUTO) 8.5 % (3-13); PLATELET COUNT 247 10^3/uL (150-450); RED BLOOD COUNT 2.35 10^6/uL (3.72-5.28); RED CELL DISTRIBUTION WIDTH 16.1 % (11.5-14.0); SEGMENTED NEUTROPHILS % (AUTO) 71.7 % (42-78); TOTAL CELLS COUNTED % (AUTO) 100 %; WHITE BLOOD COUNT 9.8 10^3/uL (4.0-10.5)
[2019-02-23 06:00] LABS: HEMOGLOBIN 7.5 g/dL (12.0-15.5)
[2019-02-23] MEDS: HEPARIN SOD (PORCINE) 5,000 UNIT/ML 1 ML VIAL SUBCUT SCH ×3 (06:13→23:12)
[2019-02-23 06:31] LABS: IRON(TIBC) 45.4 ug/dL (37-170)
[2019-02-23 06:58] LABS: ABSOLUTE RETICS # 0.056 10^6/uL (0.028-0.122); RETICULOCYTE COUNT (AUTO) 2.41 % (0.66-2.85)
[2019-02-23 07:54] LABS: ANION GAP 17 (5-19); BLOOD UREA NITROGEN 89 mg/dL (7-20); CARBON DIOXIDE 20 mmol/L (22-30); CHLORIDE 98 mmol/L (98-107); GLUCOSE 134 mg/dL (75-110); POTASSIUM 5.1 mmol/L (3.6-5.0)
[2019-02-23 08:02] LABS: CALCIUM 6.9 mg/dL (8.4-10.2)
[2019-02-23] MEDS: IPRATROPIUM/ALBUTEROL 0.5-2.5 MG/3 ML AMPUL NEB SCH ×2 (08:22→19:46)
[2019-02-23] MEDS ORDERED: DEXTROSE 50%-WATER 25 GM/50 ML DISP.SYRIN IV PRN ×2 (08:57)
[2019-02-23] MEDS ORDERED: DEXTROSE 40% GEL 15 GM TUBE PO PRN ×2 (08:57)
[2019-02-23] MEDS ORDERED: GLUCAGON,HUMAN RECOMB 1 MG INJ IM PRN (08:57)
--- NOTE | 2019-02-23 09:13 | PDOC PROGRESS REPORT ---
Subjective Progress Note for:: 02/23/19 Subjective:: 58 year old female with a past medical history of diabetes, COPD, noncompliance and hemodialysis dependent end-stage and anuric renal failure at [facility] in [place] Saturdays. She presents with 8 hours of shortness of breath, nonproductive cough no chest pain or palpitations but is found to have an 240/80 acute hypercapnic respiratory failure. She denies opiates or narcotics reducing respiratory drive she denies fever, noncompliance with med ication, lifestyle or hemodialysis. She is placed on BiPAP and referred to the hospitalist for admission she presents today only 6 days after leaving AGAINST MEDICAL ADVICE following a similar presentation. 02/[id number]-[id number]-old female with history of ESRD on hemodialysis Friday last hemodialysis on Friday admitted with severe shortness of breath. She is doing better this morning. Blood pressure is around 100/50. She is not on BiPAP. Nephrology consult was requested probably she will be dialyzed today. Latest serum potassium is 5.9. She does comfortably in the bed communicating well. Reason For Visit: ESRD VOLUME OVERLOAD, DM Physical Exam Vital Signs: Temp Pulse Resp BP Pulse Ox 99.0 F 85 16 95/47 L 100 02/23/19 05:00 02/23/19 01:26 02/23/19 06:00 02/23/19 05:34 02/23/19 06:00 Intake & Output 02/22/19 02/23/19 02/24/19 06:59 06:59 06:59 Intake Total 0 Output Total 0 Balance 0 Weight 72.1 kg General appearance: PRESENT: no acute distress, cooperative Head exam: PRESENT: atraumatic Eye exam: PRESENT: PERRLA Mouth exam: PRESENT: moist, tongue midline Teeth exam: PRESENT: poor dentation Neck exam: ABSENT: carotid bruit, JVD, lymphadenopathy, thyromegaly Respiratory exam: PRESENT: crackles, decreased breath sounds Cardiovascular exam: PRESENT: RRR. ABSENT: diastolic murmur, rubs, systolic murmur GI/Abdominal exam: PRESENT: normal bowel sounds, soft. ABSENT: distended, guarding, mass, organolmegaly, rebound, tenderness Rectal exam: PRESENT: deferred Extremities exam: PRESENT: full ROM. ABSENT: calf tenderness, clubbing, pedal edema Neurological exam: PRESENT: alert, awake, oriented to person, oriented to place, oriented to time, oriented to situation, CN II-XII grossly intact. ABSENT: motor sensory deficit Results Laboratory Results: 02/23/19 05:30 02/23/19 05:30 02/22/19 02/22/19 02/22/19 19:30 19:30 20:03 WBC 10.2 RBC 3.11 L Hgb 9.8 L Hct 30.0 L MCV 96 MCH 31.4 MCHC 32.6 RDW 16.7 H Plt Count 343 Seg Neutrophils % 74.4 Lymphocytes % 15.9 Monocytes % 7.7 Eosinophils % 1.1 Basophils % 0.9 Absolute Neutrophils 7.6 Absolute Lymphocytes 1.6 Absolute Monocytes 0.8 Absolute Eosinophils 0.1 Absolute Basophils 0.1 Retic Count (auto) Absolute Retic Carbonic Acid 1.65 H HCO3/H2CO3 Ratio 14:1 ABG pH 7.27 L ABG pCO2 54.7 H ABG pO2 41.6 L ABG HCO3 24.4 H ABG O2 Saturation 69.3 L ABG Base Excess -2.9 FiO2 30% Sodium 135.2 L Potassium 5.9 H Chloride 91 L Carbon Dioxide 23 Anion Gap 21 H BUN 82 H Creatinine 7.36 H Est GFR ( Amer) 7 L Est GFR (Non-Af Amer) 6 L Glucose 415 H* Calcium 7.3 L Iron TIBC % Saturation Ferritin Total Bilirubin 0.7 AST 30 Alkaline Phosphatase 235 H Total Protein 8.9 H Albumin 4.8 Vitamin B12 Folate 02/23/19 02/23/19 02/23/19 04:10 05:30 05:30 WBC Cancelled 9.8 RBC Cancelled 2.35 L Hgb Cancelled 7.5 L D Hct Cancelled 22.1 L MCV Cancelled 94 MCH Cancelled 31.8 MCHC Cancelled 33.8 RDW Cancelled 16.1 H Plt Count Cancelled 247 Seg Neutrophils % Cancelled 71.7 Lymphocytes % Cancelled 17.8 Monocytes % Cancelled 8.5 Eosinophils % Cancelled 1.4 Basophils % Cancelled 0.6 Absolute Neutrophils Cancelled 7.0 Absolute Lymphocytes Cancelled 1.7 Absolute Monocytes Cancelled 0.8 Absolute Eosinophils Cancelled 0.1 Absolute Basophils Cancelled 0.1 Retic Count (auto) 2.41 Absolute Retic 0.056 Carbonic Acid HCO3/H2CO3 Ratio ABG pH ABG pCO2 ABG pO2 ABG HCO3 ABG O2 Saturation ABG Base Excess FiO2 Sodium Potassium Chloride Carbon Dioxide Anion Gap BUN Creatinine Est GFR ( Amer) Est GFR (Non-Af Amer) Glucose Calcium Iron TIBC % Saturation Ferritin Total Bilirubin AST Alkaline Phosphatase Total Protein Albumin Vitamin B12 Folate 02/23/19 02/23/19 05:30 05:30 WBC RBC Hgb Hct MCV MCH MCHC RDW Plt Count Seg Neutrophils % Lymphocytes % Monocytes % Eosinophils % Basophils % Absolute Neutrophils Absolute Lymphocytes Absolute Monocytes Absolute Eosinophils Absolute Basophils Retic Count (auto) Absolute Retic Carbonic Acid HCO3/H2CO3 Ratio ABG pH ABG pCO2 ABG pO2 ABG HCO3 ABG O2 Saturation ABG Base Excess FiO2 Sodium 135.3 L Potassium 5.1 H Chloride 98 Carbon Dioxide 20 L Anion Gap 17 BUN 89 H Creatinine 7.94 H Est GFR ( Amer) 6 L Est GFR (Non-Af Amer) 5 L Glucose 134 H Calcium 6.9 L* Iron 45.4 TIBC 215 L % Saturation 21 Ferritin 681.00 H Total Bilirubin AST Alkaline Phosphatase Total Protein Albumin Vitamin B12 449.0 Folate 16.60 02/22/19 02/22/19 19:30 19:30 Creatine Kinase 89 CK-MB (CK-2) 1.91 Troponin I 0.012 NT-Pro-B Natriuret Pep [id number] H Impressions: Chest X-Ray 02/22/19 00:00 IMPRESSION: Small to mild bilateral pleural effusions. Assessment and Plan - Diagnosis (1) End stage renal failure on dialysis Is this a current diagnosis for this admission?: Yes Plan: N.p.o., avoid additional IV fluids, follow-up nephrology consult for dialysis 12/2018-patient with history of ESRD on hemodialysis Friday and Friday last hemodialysis on Friday. Admitted with severe shortness of breath. Nephrology consult was requested probably she may be dialyzed today. On renal diet today and blood sugar monitoring before meals and at bedtime with insulin sliding scale coverage. (2) Acute respiratory failure with hypoxia Is this a current diagnosis for this admission?: Yes Plan: 02/23/2019-patient came in with severe shortness of breath acute on chronic respiratory failure with hypoxia most likely secondary to fluid overload. Pulse ox is 100% on 2 L at this point. (3) Anemia of renal disease Is this a current diagnosis for this admission?: Yes Plan: Follow-up anemia labs and follow-up nephrology consult 02/23/2019-patient's hemoglobin is 7.5 anemia of chronic disease most likely secondary to end-stage renal disease. We are waiting for Dr. Mortensen's evaluation prior to give any blood transfusions. (4) Pulmonary edema Qualifiers: Chronicity: acute Qualified Code(s): J81.0 - Acute pulmonary edema Is this a current diagnosis for this admission?: Yes Plan: BiPAP and blood pressure reduction 02/23/2019-patient came in with pulmonary edema requiring BiPAP at the time of my examination this morning she is not on BiPAP. Comfortably in the bed. Probably she will be dialyzed today blood pressures are on the low normal my impression is bumetanide able to take as much fluid during the dialysis. (5) Diabetes mellitus type 2 in nonobese Is this a current diagnosis for this admission?: No Plan: 02/23/2019-patient has history of type 2 diabetes mellitus latest blood sugar is 138. To start on renal diet and insulin sliding scale before meals and at bedtime. Plan to check hemoglobin A1c. (6) Hypertensive emergency Is this a current diagnosis for this admission?: Yes Plan: Suspecting noncompliance with medication, clonidine initiated, Norvasc and hydralazine as needed. 02/23/2019-patient came in with hypertensive emergency started on clonidine, Norvasc and hydralazine and she was also given Lasix 40 mg IV blood pressure now is 100/50 to remove the clonidine patch to remove the nitroglycerin patch and she may need dialysis today. (7) Hyperkalemia Is this a current diagnosis for this admission?: Yes Plan: 02/23/2019-patient serum potassium is 5.9 today probably she will be dialyzed and hopefully after dialysis potassium levels will come down. Hyperkalemia most likely secondary to end-stage renal disease. - Time Time Spent with patient: 15-24 minutes Medications reviewed and adjusted accordingly: Yes Anticipated discharge: Home
[2019-02-23 09:43] LABS: ANION GAP 16 (5-19); BLOOD UREA NITROGEN 86 mg/dL (7-20); CALCIUM 7.1 mg/dL (8.4-10.2); CARBON DIOXIDE 23 mmol/L (22-30); CHLORIDE 96 mmol/L (98-107); GLUCOSE 136 mg/dL (75-110); POTASSIUM 5.3 mmol/L (3.6-5.0)
[2019-02-23] MEDS: INSULIN REG, HUMAN 100 UNIT/ML 3 ML VIAL (PYX) SUBCUT SCH ×3 (11:01→23:08)
[2019-02-23] MEDS ORDERED: NORMAL SALINE 1000 ML 1,000 ML IV PRN (12:43)
--- NOTE | 2019-02-23 16:11 | PDOC CONSULTATION ---
Consultation Consult Date: 02/23/19 Provider Consulted: DAVID MOSES Consult reason:: I was asked to see the patient due to acute respiratory failure with pulmonary vascular congestion in a patient with history of ESRD. History of Present Illness Admission Date/PCP: 02/22/19 22:05 IRENE SAMANIEGO History of Present Illness: SAMIA HEALY is a 58 year old female with history of end-stage renal disease on maintenance hemodialysis on Tuesdays, and Saturdays, diabetes mellitus, hypertension who presented last night because of shortness of breath. Patient was here a week ago for the same reason and signed AGAINST MEDICAL ADVICE unfortunately. Patient said she dialyzed last Friday and completed her dialysis. Yesterday she said she felt like lower abdominal discomfort associa ike with shortness of breath so her daughter called 911. EMS came and she was found to be tachypneic so she was placed on CPAP. She still has some nonproductive cough. She denies any chest pains, nausea, vomiting or diarrhea. Upon presentation she also has elevated blood pressure of 240/80. In the emergency room she was placed on BiPAP. Chest x-ray showed small bilateral pleural effusion. Her initial potassium was 5.9. This morning the patient felt a little bit better and was able to switch to nasal cannula. She is way over her dry weight. Because of her shortness of breath, pulmonary congestion and hyperkalemia I arrange for an emergent hemodialysis. I am seeing her on her hemodialysis. She seems to be pretty comfortable currently on nasal cannula. Her blood pressure was improved. Currently she is tolerating dialysis. Past Medical History Cardiac Medical History: Reports: Hypertension-primary Pulmonary Medical History: Reports: Pneumonia Endocrine Medical History: Reports: Diabetes Mellitus Type 2 Renal/ Medical History: Reports: End Stage Renal Disease, Secondary Hyperparathyroidism Psychiatric Medical History: Reports: Tobacco Dependency Hematology Medical History: Reports Anemia of Chronic Kidney Disease Past Surgical History Past Surgical History: Reports: Appendectomy, Cholecystectomy, Dialysis Access Surgery AVF, Orthopedic Surgery - feet, Tubal Ligation, Vascular Surgery - fistula upper arm, Other - Hemodialysis vascular access left upper extremity Social History Information Source: Patient, [facility] Records Smoking Status: Former Smoker Number of Years Smokin Last Time Smoked: 01/24/2019 Frequency of Alcohol Use: None Hx Recreational Drug Use: No Drugs: None Hx Prescription Drug Abuse: No - Advance Directive Resuscitation Status: Full Code Family History Family History: Reviewed & Not Pertinent Parental Family History Reviewed: Yes Children Family History Reviewed: Yes Sibling(s) Family History Reviewed.: Yes Medication/Allergy Home Medications: Gabapentin [Neurontin 100 mg Capsule] 200 mg PO Q12 MDD 600 MG 05/22/18 Insulin Degludec [Tresiba Flextouch U-100] 16 unit SQ QPM 05/22/18 Aspirin [Ecotrin] 81 mg PO DAILY 08/24/18 Ferric Citrate [Auryxia] 420 mg PO MEALS 08/24/18 Clonidine [Catapres-Tts 3 (0.3 mg/24 Hr) Transderm Patch] 1 patch TOP FR@1000 02/15/19 Insulin Aspart [Novolog Insulin 100 Unit/1 ml 10 ml] 9 unit SUBCUT TID 02/15/19 Lanthanum Carbonate [Fosrenol] 1 packet PO MEALS 02/15/19 Varenicline Tartrate [Chantix 1 Mg Tablet] 1 mg PO DAILY 02/15/19 Amlodipine Besylate [Norvasc 2.5 mg Tablet] 2.5 mg PO DAILY 02/23/19 Carvedilol [Coreg 12.5 mg Tablet] 12.5 mg PO Q12 02/23/19 Allergies/Adverse Reactions: Penicillins Allergy (Severe, Verified 02/22/19 19:28) rash ciprofloxacin [From Cipro] Allergy (Verified 02/22/19 19:28) shellfish derived Allergy (Verified 02/22/19 19:28) Swelling of tongue oxycodone [From Percocet] Adverse Reaction (Verified 02/22/19 19:28) Review of Systems All systems: reviewed and no additional remarkable complaints except as stated Review of Systems: Constitutional: ABSENT: chills, fatigue, fever(s), headache(s), weight gain, weight loss Eyes: ABSENT: visual disturbances Ears: ABSENT: hearing changes Cardiovascular: ABSENT: chest pain, orthropnea, palpitations; admits shortness of breath and edema Respiratory: ABSENT: Hemoptysis; admits nonproductive cough Gastrointestinal: ABSENT: abdominal pain, constipation, diarrhea, hematemesis, hematochezia, nausea, vomiting Genitourinary: ABSENT: dysuria, hematuria Musculoskeletal: ABSENT: joint swelling Integumentary: ABSENT: rash, wounds Neurological: ABSENT: abnormal gait, abnormal speech, confusion, dizziness, focal weakness, numbness, syncope Psychiatric: ABSENT: anxiety, depression Endocrine: ABSENT: cold intolerance, heat intolerance, polydipsia, polyuria Hematologic/Lymphatic: ABSENT: easy bleeding, easy bruising, lymphadenopathy Physical Exam Vital Signs: Temp Pulse Resp BP Pulse Ox 98.1 F 73 16 100/73 100 02/23/19 12:00 02/23/19 12:00 02/23/19 12:00 02/23/19 12:00 02/23/19 12:00 Intake & Output 02/22/19 02/23/19 02/24/19 06:59 06:59 06:59 Intake Total 0 Output Total 0 0 Balance 0 0 Weight 72.1 kg Vitals during dialysis: Blood pressure 115/58, heart rate of 72, pulse oxygen ation 100% with nasal cannula, respiratory rate of 20, blood flow rate of 450 mL/min dialysate flow rate of 800 mL/min. Exam: General appearance: No acute distress, cooperative, well-developed, well- nourished Head exam: PRESENT: atraumatic, normocephalic Eye exam: PRESENT: Conjunctiva pale, EOMI, PERRLA. ABSENT: conjunctival injection, scleral icterus Mouth exam: PRESENT: moist, neck supple, tongue midline Neck exam: PRESENT: full ROM. ABSENT: carotid bruit, JVD, lymphadenopathy, thyromegaly Respiratory exam: PRESENT: Diminished to auscultation bilaterally. Bilateral basal crackles ABSENT: Rhonchi, stridor, wheezes Cardiovascular exam: PRESENT: RRR, +S1, +S2. ABSENT: systolic murmur Pulses: PRESENT: normal radial pulses, normal dorsalis pedis pulses GI/Abdominal exam: PRESENT: normal bowel sounds, soft. ABSENT: guarding, mass, tenderness Rectal exam: Deferred Extremities exam: PRESENT: full ROM. Grade 1 bilateral pitting edema ABSENT: calf tenderness Musculoskeletal: PRESENT: full ROM. ABSENT: deformity Neurological exam: PRESENT: alert, Awake, Oriented to person, Oriented to place, Oriented to time, reflexes normal, CN II-XII grossly intact. ABSENT: motor sensory deficit Psychiatric exam: PRESENT: appropriate affect, normal mood. ABSENT: homicidal ideation, suicidal ideation Skin exam: PRESENT: intact, dry, warm. ABSENT: rash Results Laboratory Results: 02/23/19 05:30 02/23/19 09:04 02/22/19 02/22/19 02/22/19 19:30 19:30 20:03 WBC 10.2 RBC 3.11 L Hgb 9.8 L Hct 30.0 L MCV 96 MCH 31.4 MCHC 32.6 RDW 16.7 H Plt Count 343 Seg Neutrophils % 74.4 Lymphocytes % 15.9 Monocytes % 7.7 Eosinophils % 1.1 Basophils % 0.9 Absolute Neutrophils 7.6 Absolute Lymphocytes 1.6 Absolute Monocytes 0.8 Absolute Eosinophils 0.1 Absolute Basophils 0.1 Retic Count (auto) Absolute Retic Carbonic Acid 1.65 H HCO3/H2CO3 Ratio 14:1 ABG pH 7.27 L ABG pCO2 54.7 H ABG pO2 41.6 L ABG HCO3 24.4 H ABG O2 Saturation 69.3 L ABG Base Excess -2.9 FiO2 30% Sodium 135.2 L Potassium 5.9 H Chloride 91 L Carbon Dioxide 23 Anion Gap 21 H BUN 82 H Creatinine 7.36 H Est GFR ( Amer) 7 L Est GFR (Non-Af Amer) 6 L Glucose 415 H* Calcium 7.3 L Iron TIBC % Saturation Ferritin Total Bilirubin 0.7 AST 30 Alkaline Phosphatase 235 H Total Protein 8.9 H Albumin 4.8 Vitamin B12 Folate 02/23/19 02/23/19 02/23/19 04:10 05:30 05:30 WBC Cancelled 9.8 RBC Cancelled 2.35 L Hgb Cancelled 7.5 L D Hct Cancelled 22.1 L MCV Cancelled 94 MCH Cancelled 31.8 MCHC Cancelled 33.8 RDW Cancelled 16.1 H Plt Count Cancelled 247 Seg Neutrophils % Cancelled 71.7 Lymphocytes % Cancelled 17.8 Monocytes % Cancelled 8.5 Eosinophils % Cancelled 1.4 Basophils % Cancelled 0.6 Absolute Neutrophils Cancelled 7.0 Absolute Lymphocytes Cancelled 1.7 Absolute Monocytes Cancelled 0.8 Absolute Eosinophils Cancelled 0.1 Absolute Basophils Cancelled 0.1 Retic Count (auto) 2.41 Absolute Retic 0.056 Carbonic Acid HCO3/H2CO3 Ratio ABG pH ABG pCO2 ABG pO2 ABG HCO3 ABG O2 Saturation ABG Base Excess FiO2 Sodium Potassium Chloride Carbon Dioxide Anion Gap BUN Creatinine Est GFR ( Amer) Est GFR (Non-Af Amer) Glucose Calcium Iron TIBC % Saturation Ferritin Total Bilirubin AST Alkaline Phosphatase Total Protein Albumin Vitamin B12 Folate 02/23/19 02/23/19 02/23/19 05:30 05:30 09:04 WBC RBC Hgb Hct MCV MCH MCHC RDW Plt Count Seg Neutrophils % Lymphocytes % Monocytes % Eosinophils % Basophils % Absolute Neutrophils Absolute Lymphocytes Absolute Monocytes Absolute Eosinophils Absolute Basophils Retic Count (auto) Absolute Retic Carbonic Acid HCO3/H2CO3 Ratio ABG pH ABG pCO2 ABG pO2 ABG HCO3 ABG O2 Saturation ABG Base Excess FiO2 Sodium 135.3 L 135.4 L Potassium 5.1 H 5.3 H Chloride 98 96 L Carbon Dioxide 20 L 23 Anion Gap 17 16 BUN 89 H 86 H Creatinine 7.94 H 8.42 H Est GFR ( Amer) 6 L 6 L Est GFR (Non-Af Amer) 5 L 5 L Glucose 134 H 136 H Calcium 6.9 L* 7.1 L Iron 45.4 TIBC 215 L % Saturation 21 Ferritin 681.00 H Total Bilirubin AST Alkaline Phosphatase Total Protein Albumin Vitamin B12 449.0 Folate 16.60 02/22/19 02/22/19 19:30 19:30 Creatine Kinase 89 CK-MB (CK-2) 1.91 Troponin I 0.012 NT-Pro-B Natriuret Pep 63634 H Impressions: Chest X-Ray 02/22/19 00:00 IMPRESSION: Small to mild bilateral pleural effusions. Assessment & Plan - Diagnosis (1) Acute hypercapnic respiratory failure Is this a current diagnosis for this admission?: Yes Plan: With pulmonary vascular congestion and elevated weight weight over her dry weight in a patient with ESRD. Initially requiring BiPAP but has improved. (2) End stage renal failure on dialysis Is this a current diagnosis for this admission?: Yes Plan: I arranged emergency hemodialysis today. We will do dialysis today for 3 hours, using the patient's AV fistula, with 2 potassium bath, blood flow rate of 450 mL per minute, dialysate flow rate of 800 mL per minute, ultrafiltration 3.5 to 4 L as tolerated, no heparin and no Procrit. Discussed treatment plan with her dialysis nurse. Patient will be monitored throughout dialysis treatment. We will plan another dialysis treatment tomorrow to bring her to her dry weight. Encourage patient to stay in the hospital this time. (3) Pulmonary edema Qualifiers: Chronicity: acute Qualified Code(s): J81.0 - Acute pulmonary edema Is this a current diagnosis for this admission?: Yes (4) Hyperkalemia Is this a current diagnosis for this admission?: Yes Plan: Should improve with dialysis. (5) Anemia of renal disease Is this a current diagnosis for this admission?: Yes Plan: We will give Procrit tomorrow on dialysis. (6) Hypertension Qualifiers: Hypertension type: essential hypertension Qualified Code(s): I10 - Essential (primary) hypertension Is this a current diagnosis for this admission?: Yes Plan: Currently improved. (7) Diabetes mellitus type 2 in nonobese Is this a current diagnosis for this admission?: Yes (8) Pleural effusion Is this a current diagnosis for this admission?: Yes Plan: Bilateral and small pulmonary edema. - Notes Notes: Thank you very much for this consultation. We will follow the patient with you. - Time Time Spent: Greater than 70 Minutes
[2019-02-23] MEDS ORDERED: LANTHANUM CARBONATE PO SCH (17:00)
[2019-02-23] MEDS ORDERED: (PENDING PHARMACY ID) (Ferric Citrate [Auryxia] 420 MG) PO SCH (17:00)
[2019-02-23] MEDS ORDERED: INSULIN DEGLUDEC 16 UNIT SQ SCH (18:00)
[2019-02-23] MEDS ORDERED: INSULIN ASPART 9 UNIT SUBCUT SCH (18:00)
[2019-02-23] MEDS: LANTHANUM CARBONATE 500 MG TAB.CHEW PO SCH (18:09)
[2019-02-23] MEDS: ACETAMINOPHEN 325 MG TABLET PO PRN (20:25)
[2019-02-23 21:34] LABS: ANION GAP 13 (5-19); CALCIUM 8.1 mg/dL (8.4-10.2); CARBON DIOXIDE 28 mmol/L (22-30); CHLORIDE 93 mmol/L (98-107); GLUCOSE 372 mg/dL (75-110); POTASSIUM 4.5 mmol/L (3.6-5.0)
[2019-02-23 21:48] LABS: BLOOD UREA NITROGEN 39 mg/dL (7-20)
[2019-02-23] MEDS: INSULIN GLARGINE,HUM.REC.ANLOG 1,000 UNIT/10 ML VIAL SUBCUT SCH (23:08)
[2019-02-23] MEDS: GABAPENTIN 100 MG CAPSULE PO SCH (23:10)
[2019-02-23] MEDS: CARVEDILOL 12.5 MG TABLET PO SCH (23:22)
[2019-02-24] MEDS ORDERED: EPOETIN ALFA INJ 40000 UNIT/1 ML (RENAL) IV PRN (05:00)
[2019-02-24] MEDS ORDERED: NORMAL SALINE 1000 ML 1,000 ML IV PRN (05:00)
[2019-02-24] MEDS ORDERED: EPOETIN ALFA-EPBX 40,000 UNIT/ML VIAL (RENAL) IV PRN (05:00)
[2019-02-24] MEDS: HEPARIN SOD (PORCINE) 5,000 UNIT/ML 1 ML VIAL SUBCUT SCH ×3 (05:30→22:11)
[2019-02-24 06:01] LABS: ABSOLUTE BASOPHILS # (AUTO) 0.1 10^3/uL (0.0-0.2); ABSOLUTE EOSINOPHILS # (AUTO) 0.1 10^3/uL (0.0-0.6); ABSOLUTE LYMPHOCYTES (AUTO) 1.5 10^3/uL (0.5-4.7); ABSOLUTE MONOCYTES (AUTO) 0.9 10^3/uL (0.1-1.4); ABSOLUTE NEUT (AUTO) 5.6 10^3/uL (1.7-8.2); BASOPHILS % (AUTO) 0.8 % (0-2); EOSINOPHILS % (AUTO) 1.8 % (0-6); HEMATOCRIT 25.9 % (36.0-47.0); HEMOGLOBIN 8.7 g/dL (12.0-15.5); LYMPHOCYTES % (AUTO) 18.1 % (13-45); MEAN CORPUSCULAR HEMOGLOBIN 31.6 pg (27.0-33.4); MEAN CORPUSCULAR HGB CONC 33.4 g/dL (32.0-36.0); MEAN CORPUSCULAR VOLUME 95 fl (80-97); MONOCYTES % (AUTO) 10.6 % (3-13); PLATELET COUNT 258 10^3/uL (150-450); RED BLOOD COUNT 2.74 10^6/uL (3.72-5.28); RED CELL DISTRIBUTION WIDTH 16.7 % (11.5-14.0); SEGMENTED NEUTROPHILS % (AUTO) 68.7 % (42-78); TOTAL CELLS COUNTED % (AUTO) 100 %; WHITE BLOOD COUNT 8.2 10^3/uL (4.0-10.5)
[2019-02-24] MEDS ORDERED: EPOETIN ALFA INJ 40000 UNIT/1 ML (RENAL) SUBCUT PRN (07:20)
[2019-02-24] MEDS: IPRATROPIUM/ALBUTEROL 0.5-2.5 MG/3 ML AMPUL NEB SCH ×2 (07:31→20:56)
--- NOTE | 2019-02-24 07:47 | EKG REPORT ---
SEVERITY:- ABNORMAL ECG - SINUS RHYTHM LEFT ATRIAL ABNORMALITY : Confirmed by: Harry Vogel MD 24-Feb-2019 07:46:41
--- NOTE | 2019-02-24 12:36 | Progress Note Acknowledgement ---
Progress Note Acknowledgement Progess Note Acknowledgement: I, the undersigned member of the medical staff with appropriate privileges and with supervisory authority over [ PAC], a dependent practice allied health professional, acknowledge that I have reviewed the progress notes entered on this patient, and in my professional judgment believe that the assessment made and/or any care evidenced was appropriate
--- NOTE | 2019-02-24 12:43 | PDOC PROGRESS REPORT ---
Subjective Progress Note for:: 02/24/19 Subjective:: 02/24/2019 patient was admitted through the emergency room on 02/22/2019 for abdominal pain and shortness of breath patient is a end-stage renal disease on dialysis Friday patient had similar symptoms last week but signed herself out of the hospital AMA. Patient was put on BiPAP in the emergency room however this was quickly discontinued as not being necessary. This morning on rounds patient states she is feeling much better and she is scheduled for dialysis today patient has no complaints today. Today her pulse is between 70 and 90 blood pressure 105/54, on 2 L of nasal cannula her sats are between 97 and 100% WBCs are normal 8.2 hemoglobin 8.7 sodium 133 potassium 4.5 BUN of 39 creatinine 4.4 glucose 115 calcium 8.1 Reason For Visit: ESRD VOLUME OVERLOAD, DM Physical Exam Vital Signs: Temp Pulse Resp BP Pulse Ox 99.0 F 86 18 128/52 H 98 02/24/19 11:58 02/24/19 11:58 02/24/19 11:58 02/24/19 11:58 02/24/19 11:58 Intake & Output 02/23/19 02/24/19 02/25/19 06:59 06:59 06:59 Intake Total 0 322 Output Total 0 4200 Balance 0 -3878 Weight 72.1 kg 71.4 kg General appearance: PRESENT: no acute distress, well-developed, well-nourished Respiratory exam: PRESENT: clear to auscultation carlos. ABSENT: rales, rhonchi, wheezes Cardiovascular exam: PRESENT: RRR. ABSENT: diastolic murmur, rubs, systolic murmur GI/Abdominal exam: PRESENT: normal bowel sounds, soft. ABSENT: distended, guarding, mass, organolmegaly, rebound, tenderness Results Laboratory Results: 02/24/19 05:12 02/23/19 21:00 02/23/19 02/24/19 21:00 05:12 WBC 8.2 RBC 2.74 L Hgb 8.7 L Hct 25.9 L MCV 95 MCH 31.6 MCHC 33.4 RDW 16.7 H Plt Count 258 Seg Neutrophils % 68.7 Lymphocytes % 18.1 Monocytes % 10.6 Eosinophils % 1.8 Basophils % 0.8 Absolute Neutrophils 5.6 Absolute Lymphocytes 1.5 Absolute Monocytes 0.9 Absolute Eosinophils 0.1 Absolute Basophils 0.1 Sodium 133.9 L Potassium 4.5 Chloride 93 L Carbon Dioxide 28 Anion Gap 13 BUN 39 H D Creatinine 4.40 H Est GFR ( Amer) 12 L Est GFR (Non-Af Amer) 10 L Glucose 372 H Calcium 8.1 L 02/22/19 02/22/19 19:30 19:30 Creatine Kinase 89 CK-MB (CK-2) 1.91 Troponin I 0.012 NT-Pro-B Natriuret Pep [id number] H Impressions: Chest X-Ray 02/22/19 00:00 IMPRESSION: Small to mild bilateral pleural effusions. Assessment and Plan - Diagnosis (1) End stage renal failure on dialysis Is this a current diagnosis for this admission?: Yes Plan: N.p.o., avoid additional IV fluids, follow-up nephrology consult for dialysis 12/2018-patient with history of ESRD on hemodialysis Friday and Friday last hemodialysis on Friday. Admitted with severe shortness of breath. Nephrology consult was requested probably she may be dialyzed today. On renal diet today and blood sugar monitoring before meals and at bedtime with insulin sliding scale coverage. 02/24/2019 patient is feeling much better today, scheduled for dialysis this afternoon. Labs are stable for the patient (2) Anemia of renal disease Is this a current diagnosis for this admission?: Yes Plan: Follow-up anemia labs and follow-up nephrology consult 02/23/2019-patient's hemoglobin is 7.5 anemia of chronic disease most likely secondary to end-stage renal disease. We are waiting for Dr. Mortensen's evaluation prior to give any blood transfusions. 02/24/2019 hemoglobin today 8.7 hematocrit 25.9 no transfusions needed (3) Diabetes Is this a current diagnosis for this admission?: Yes Plan: 02/24/2019 patient's glucose levels are stable morning at 115 - Time Time Spent with patient: 15-24 minutes
[2019-02-24] MEDS: LANTHANUM CARBONATE 500 MG TAB.CHEW PO SCH ×3 (14:11→17:26)
[2019-02-24] MEDS: INSULIN REG, HUMAN 100 UNIT/ML 3 ML VIAL (PYX) SUBCUT SCH ×4 (14:11→22:12)
[2019-02-24] MEDS: INSULIN LISPRO 100 UNIT/ML 3 ML VIAL SUBCUT SCH ×3 (14:13→17:20)
--- NOTE | 2019-02-24 16:21 | PDOC PROGRESS REPORT ---
Subjective Progress Note for:: 02/24/19 Subjective:: I am seeing the patient during dialysis this afternoon. She looks much better. She denies any shortness of breath. She is tolerating dialysis without any problems at this time. She wanted to go home. Reason For Visit: ESRD VOLUME OVERLOAD, DM Physical Exam Vital Signs: Temp Pulse Resp BP Pulse Ox 99.0 F 86 18 128/52 H 98 02/24/19 11:58 02/24/19 11:58 02/24/19 11:58 02/24/19 11:58 02/24/19 11:58 Intake & Output 02/23/19 02/24/19 02/25/19 06:59 06:59 06:59 Intake Total 0 322 Output Total 0 4200 3200 Balance 0 -3878 -3200 Weight 72.1 kg 71.4 kg Vitals during dialysis: Blood pressure 137/58, heart rate of 82, blood flow rate of 450 mL/min and dialysate flow rate of 800 mL/min. Exam: General appearance: PRESENT: no acute distress, cooperative, well-developed, well-nourished Head exam: PRESENT: atraumatic, normocephalic Eye exam: PRESENT: conjunctiva slightly pale, PERRLA. ABSENT: scleral icterus Neck exam: ABSENT: JVD Respiratory exam: PRESENT: Normal breath sounds. ABSENT: crackles, rales, rhonchi, unlabored, wheezes Cardiovascular exam: PRESENT: Regular rate rhythm -+S1, +S2. ABSENT: diastolic murmur, systolic murmur GI/Abdominal exam: PRESENT: normal bowel sounds, soft. ABSENT: guarding, mass, tenderness Extremities exam: ABSENT: No edema Neurological exam: PRESENT: alert, awake, oriented to person, place and time. Skin exam: PRESENT: dry, warm, Results Laboratory Results: 02/24/19 05:12 02/23/19 21:00 02/23/19 02/24/19 21:00 05:12 WBC 8.2 RBC 2.74 L Hgb 8.7 L Hct 25.9 L MCV 95 MCH 31.6 MCHC 33.4 RDW 16.7 H Plt Count 258 Seg Neutrophils % 68.7 Lymphocytes % 18.1 Monocytes % 10.6 Eosinophils % 1.8 Basophils % 0.8 Absolute Neutrophils 5.6 Absolute Lymphocytes 1.5 Absolute Monocytes 0.9 Absolute Eosinophils 0.1 Absolute Basophils 0.1 Sodium 133.9 L Potassium 4.5 Chloride 93 L Carbon Dioxide 28 Anion Gap 13 BUN 39 H D Creatinine 4.40 H Est GFR ( Amer) 12 L Est GFR (Non-Af Amer) 10 L Glucose 372 H Calcium 8.1 L 02/22/19 02/22/19 19:30 19:30 Creatine Kinase 89 CK-MB (CK-2) 1.91 Troponin I 0.012 NT-Pro-B Natriuret Pep [id number] H Impressions: Chest X-Ray 02/22/19 00:00 IMPRESSION: Small to mild bilateral pleural effusions. Assessment & Plan - Diagnosis (1) End stage renal failure on dialysis Is this a current diagnosis for this admission?: Yes Plan: We will do dialysis today for 3 hours, using the patient's AV fistula, with 2 potassium bath, blood flow rate of 450 mL per minute, dialysate flow rate of 800 mL per minute, ultrafiltration 3 to 4 L as tolerated, no heparin and Procrit with 40,000 units during dialysis intravenously. Patient will be monitored throughout dialysis treatment. (2) Acute hypercapnic respiratory failure Is this a current diagnosis for this admission?: Yes Plan: Resolved with ultrafiltration. (3) Pulmonary edema Qualifiers: Chronicity: acute Qualified Code(s): J81.0 - Acute pulmonary edema Is this a current diagnosis for this admission?: Yes Plan: Resolving. (4) Hyperkalemia Is this a current diagnosis for this admission?: Yes Plan: Resolved with dialysis. (5) Anemia of renal disease Is this a current diagnosis for this admission?: Yes Plan: Procrit given during dialysis. (6) Hypertension Qualifiers: Hypertension type: essential hypertension Qualified Code(s): I10 - Essential (primary) hypertension Is this a current diagnosis for this admission?: Yes (7) Diabetes mellitus type 2 in nonobese Is this a current diagnosis for this admission?: Yes (8) Pleural effusion Is this a current diagnosis for this admission?: Yes - Notes Notes: From nephrology standpoint I think patient can be safely discharged at any time after dialysis today. - Time Time with patient: 15-25 minutes
[2019-02-24] MEDS: CARVEDILOL 12.5 MG TABLET PO SCH ×2 (17:14→22:10)
[2019-02-24] MEDS: AMLODIPINE BESYLATE 2.5 MG TABLET PO SCH (17:15)
[2019-02-24] MEDS: GABAPENTIN 100 MG CAPSULE PO SCH ×2 (17:15→22:11)
[2019-02-24] MEDS: ASPIRIN 81 MG TABLET, ENT COATED PO SCH (17:15)
[2019-02-24] MEDS: VARENICLINE TARTRATE 1 MG TABLET PO SCH (17:26)
[2019-02-24] MEDS: ACETAMINOPHEN 325 MG TABLET PO PRN (19:59)
[2019-02-24 22:09] LABS: ANION GAP 11 (5-19); BLOOD UREA NITROGEN 25 mg/dL (7-20); CALCIUM 8.3 mg/dL (8.4-10.2); CARBON DIOXIDE 31 mmol/L (22-30); CHLORIDE 90 mmol/L (98-107); GLUCOSE 335 mg/dL (75-110); POTASSIUM 4.1 mmol/L (3.6-5.0)
[2019-02-24] MEDS: INSULIN GLARGINE,HUM.REC.ANLOG 1,000 UNIT/10 ML VIAL SUBCUT SCH (22:12)
[2019-02-25] MEDS: ACETAMINOPHEN 325 MG TABLET PO PRN (02:28)
[2019-02-25] MEDS: HEPARIN SOD (PORCINE) 5,000 UNIT/ML 1 ML VIAL SUBCUT SCH (05:48)
[2019-02-25] MEDS: INSULIN REG, HUMAN 100 UNIT/ML 3 ML VIAL (PYX) SUBCUT SCH (08:03)
[2019-02-25] MEDS: LANTHANUM CARBONATE 500 MG TAB.CHEW PO SCH (08:03)
[2019-02-25] MEDS: IPRATROPIUM/ALBUTEROL 0.5-2.5 MG/3 ML AMPUL NEB SCH (08:18)
[2019-02-25] MEDS: ASPIRIN 81 MG TABLET, ENT COATED PO SCH (10:00)
[2019-02-25] MEDS: GABAPENTIN 100 MG CAPSULE PO SCH (10:00)
[2019-02-25] MEDS: CARVEDILOL 12.5 MG TABLET PO SCH (10:01)
[2019-02-25] MEDS: INSULIN LISPRO 100 UNIT/ML 3 ML VIAL SUBCUT SCH (10:03)
[2019-02-25] MEDS: AMLODIPINE BESYLATE 2.5 MG TABLET PO SCH (10:03)
[2019-02-25 10:11] VITALS: BP 110/60
[2019-02-25] MEDS: VARENICLINE TARTRATE 1 MG TABLET PO SCH (11:49)
--- NOTE | 2019-02-25 17:02 | PDOC DISCHARGE SUMMARY ---
General - Admit/Disc Date/PCP Admission Date/Primary Care Provider: 02/22/19 22:05 IRENE Karen ABREUDANETTE Admission date 02/22/2019 for soreness of breath. Discharge Date: 02/25/19 - Discharge Diagnosis (1) End stage renal failure on dialysis Is this a current diagnosis for this admission?: Yes Summary: Patient takes dialysis on Friday. Patient had emergency dialysis done yesterday on Friday. Patient was seen by nephrology at that time. Nephrology felt patient could be discharged home following dialysis. (2) Anemia of renal disease Is this a current diagnosis for this admission?: Yes Summary: Patient's hemoglobin on arrival was 9.8 hematocrit 30 on the day prior to discharge hemoglobin was 8.7 and hematocrit 25.9 this is from chronic disease and stable. (3) Diabetes Is this a current diagnosis for this admission?: Yes Summary: Patient was maintained on her Lantus insulin 10 units nightly Humalog 9 units 3 times daily glucose today was 166. Patient was under good control while in the hospital - Additional Information Resuscitation Status: Full Code Discharge Diet: Diabetic Discharge Activity: Activity As Tolerated Home Medications: Gabapentin [Neurontin 100 mg Capsule] 200 mg PO Q12 MDD 600 MG 05/22/18 Insulin Degludec [Tresiba Flextouch U-100] 16 unit SQ QPM 05/22/18 Aspirin [Ecotrin] 81 mg PO DAILY 08/24/18 Ferric Citrate [Auryxia] 420 mg PO MEALS 08/24/18 Clonidine [Catapres-Tts 3 (0.3 mg/24 Hr) Transderm Patch] 1 patch TOP FR@1000 02/15/19 Insulin Aspart [Novolog Insulin 100 Unit/1 ml 10 ml] 9 unit SUBCUT TID 02/15/19 Lanthanum Carbonate [Fosrenol] 1 packet PO MEALS 02/15/19 Varenicline Tartrate [Chantix 1 Mg Tablet] 1 mg PO DAILY 02/15/19 Amlodipine Besylate [Norvasc 2.5 mg Tablet] 2.5 mg PO DAILY 02/23/19 Carvedilol [Coreg 12.5 mg Tablet] 12.5 mg PO Q12 02/23/19 History of Present Illness History of Present Illness: SAMIA HEALY is a 58 year old female who has multiple medical problems including diabetes COPD noncompliance of hemodialysis and stage renal disease dialysis on Friday and Saturdays Less than a week ago patient was in the hospital for the same complaint and left AGAINST MEDICAL ADVICE Hospital Course Hospital Course: While in the hospital patient placed on BiPAP good results he was given clonidine Norvasc and hydralazine as needed she was seen by nephrology and had emergency dialysis day following admission. Patient proved dramatically follo wing dialysis Nephrology felt that the patient could be discharged home following dialysis Physical Exam Vital Signs: Temp Pulse Resp BP Pulse Ox 98.4 F 74 18 110/60 97 02/25/19 10:08 02/25/19 10:08 02/25/19 10:08 02/25/19 10:08 02/25/19 10:08 Intake & Output 02/24/19 02/25/19 02/26/19 06:59 06:59 06:59 Intake Total 322 460 Output Total 4200 3200 Balance -3878 -2740 Weight 71.4 kg 57.1 kg General appearance: PRESENT: mild distress Respiratory exam: PRESENT: crackles, decreased breath sounds, prolonged expiratory phas, retraction Cardiovascular exam: PRESENT: diastolic murmur, RRR. ABSENT: rubs, systolic murmur Neurological exam: PRESENT: alert, awake, oriented to person, oriented to place, oriented to time, oriented to situation, CN II-XII grossly intact. ABSENT: motor sensory deficit Psychiatric exam: PRESENT: appropriate affect, normal mood, other - Patient is asking to be discharged.. ABSENT: homicidal ideation, suicidal ideation Results Laboratory Results: 02/24/19 05:12 02/24/19 21:38 02/24/19 21:38 Sodium 132.4 L Potassium 4.1 Chloride 90 L Carbon Dioxide 31 H Anion Gap 11 BUN 25 H Creatinine 3.61 H Est GFR ( Amer) 16 L Est GFR (Non-Af Amer) 13 L Glucose 335 H Calcium 8.3 L 02/22/19 02/22/19 19:30 19:30 Creatine Kinase 89 CK-MB (CK-2) 1.91 Troponin I 0.012 NT-Pro-B Natriuret Pep [id number] H Impressions: Chest X-Ray 02/22/19 00:00 IMPRESSION: Small to mild bilateral pleural effusions. Qualifiers - * PATIENT BEING DISCHARGED WITH ANY OF THE FOLLOWING DIAGNOSIS: No Acute Heart Failure - Is this a Heart Failure Patient?: No Plan Discharge Plan: Patient was told to follow-up with nephrology for her scheduled dialysis Friday. She was discharged home on same medications she was on prior to admission ,patient was medically stable at the time of discharge Time Spent: Greater than 30 Minutes
== END 2019-02-25 11:46 | disposition home or self-care (01) | DRG 682 ==
LOC: ER 19:25 → EH 22:05 → ICU 02-23 01:00 → 3W 02-23 18:50
PROVIDERS: ADMIT Internal Medicine; ATTEND Internal Medicine
PROC: 5A09357 Assistance with Respiratory Ventilation, Less than 24 Consecutive Hours, Continuous Positive Airway Pressure (ICD-10-PCS; 2019-02-22)
PROC: 5A1D70Z Performance of Urinary Filtration, Intermittent, Less than 6 Hours Per Day (ICD-10-PCS; principal; 2019-02-23)
DX: I12.0 Hypertensive chronic kidney disease with stage 5 chronic kidney disease or end stage renal disease (principal); N18.6 End stage renal disease; J96.22 Acute and chronic respiratory failure with hypercapnia; J96.21 Acute and chronic respiratory failure with hypoxia; J81.0 Acute pulmonary edema; I16.1 Hypertensive emergency; E11.22 Type 2 diabetes mellitus with diabetic chronic kidney disease; E87.5 Hyperkalemia; Z99.2 Dependence on renal dialysis; D63.1 Anemia in chronic kidney disease; Z91.15 Patient's noncompliance with renal dialysis; J44.9 Chronic obstructive pulmonary disease, unspecified; Z87.891 Personal history of nicotine dependence; Z83.3 Family history of diabetes mellitus; Z82.49 Family history of ischemic heart disease and other diseases of the circulatory system; Z79.82 Long term (current) use of aspirin; Z79.4 Long term (current) use of insulin; Z88.6 Allergy status to analgesic agent; Z88.1 Allergy status to other antibiotic agents; Z88.0 Allergy status to penicillin; Z91.013 Allergy to seafood
CPT/HCPCS: 36415; 71045; 80048; 80053; 82550; 82553; 82607; 82728; 82746; 82803; 82962; 83540; 83550; 83880; 84484; 85025; 85045; 85610; 85730; 93005; 93010; 94660; 96374; 96375; 96376; 99291; J0360; J0610; J1644; J1815; J1940; J3490; J7620; Q4081

== ENCOUNTER 2019-04-28 14:11 | Emergency (ER) | payer MEDICARE, MEDICAID ==
--- NOTE | 2019-04-28 14:20 | ER Document Report ---
ED Medical Screen (RME) - General Chief Complaint: S/S of Possible Stroke Stated Complaint: POSSIBLE STROKE Time Seen by Provider: 04/28/19 14:19 Primary Care Provider: IRENE SAMANIEGO MD [Primary Care Provider] - Follow up as needed Notes: Patient is a 58-year-old female with a past medical history of hypertension, end-stage renal disease, diabetes, and COPD who presents to the emergency department with left-sided facial droop. Last known well time was 10:00 last night. She woke up this morning with the facial droop and left facial twitching. Patient is able to move all extremities. She was having a hard time speaking, but is now able to speak better. Exam: Mild left-sided facial droop near corner of left lip. Facial twitching noted. I have greeted and performed a rapid initial assessment of this patient. A comprehensive ED assessment and evaluation of the patient, analysis of test results and completion of medical decision making process will be conducted by an additional ED providers. TRAVEL OUTSIDE OF THE [place] IN LAST 30 DAYS: No - Related Data Allergies/Adverse Reactions: Penicillins Allergy (Severe, Verified 04/28/19 14:17) rash ciprofloxacin [From Cipro] Allergy (Verified 04/28/19 14:17) shellfish derived Allergy (Verified 04/28/19 14:17) Swelling of tongue oxycodone [From Percocet] Adverse Reaction (Verified 04/28/19 14:17) Past Medical History - Past Medical History Cardiac Medical History: Reports: Hx Hypertension Denies: Hx Coronary Artery Disease, Hx Heart Attack Pulmonary Medical History: Reports: Hx Pneumonia Denies: Hx Asthma, Hx Bronchitis, Hx COPD Neurological Medical History: Denies: Hx Cerebrovascular Accident, Hx Seizures Endocrine Medical History: Reports: Hx Diabetes Mellitus Type 1, Hx Diabetes Mellitus Type 2. Denies: Hx Hyperthyroidism, Hx Hypothyroidism Renal/ Medical History: Reports: Hx End Stage Renal Disease, Hx Hemodialysis. Denies: Hx Peritoneal Dialysis GI Medical History: Denies: Hx Cirrhosis, Hx Crohn's Disease, Hx Hepatitis, Hx Ulcerative Colitis Musculoskeltal Medical History: Denies Hx Arthritis, Denies Hx Fibromyalgia Skin Medical History: Denies Hx Eczema, Denies Hx Psoriasis Psychiatric Medical History: Denies: Hx Depression Infectious Medical History: Denies: Hx Hepatitis Past Surgical History: Reports: Hx Appendectomy, Hx Cholecystectomy, Hx Orthopedic Surgery - feet, Hx Tubal Ligation, Hx Vascular Surgery - fistula upper arm, Other - Hemodialysis vascular access left upper extremity - Immunizations Hx Diphtheria, Pertussis, Tetanus Vaccination: No Doctor's Discharge - Discharge Referrals: IRENE SAMANIEGO MD [Primary Care Provider] - Follow up as needed
[2019-04-28 14:57] LABS: ABSOLUTE BASOPHILS # (AUTO) 0.1 10^3/uL (0.0-0.2); ABSOLUTE EOSINOPHILS # (AUTO) 0.2 10^3/uL (0.0-0.6); ABSOLUTE LYMPHOCYTES (AUTO) 1.5 10^3/uL (0.5-4.7); ABSOLUTE MONOCYTES (AUTO) 0.6 10^3/uL (0.1-1.4); ABSOLUTE NEUT (AUTO) 5.1 10^3/uL (1.7-8.2); BASOPHILS % (AUTO) 1.5 % (0-2); EOSINOPHILS % (AUTO) 2.5 % (0-6); HEMATOCRIT 35.9 % (36.0-47.0); HEMOGLOBIN 11.6 g/dL (12.0-15.5); LYMPHOCYTES % (AUTO) 19.6 % (13-45); MEAN CORPUSCULAR HEMOGLOBIN 31.5 pg (27.0-33.4); MEAN CORPUSCULAR HGB CONC 32.3 g/dL (32.0-36.0); MEAN CORPUSCULAR VOLUME 97 fl (80-97); MONOCYTES % (AUTO) 8.3 % (3-13); RED BLOOD COUNT 3.68 10^6/uL (3.72-5.28); RED CELL DISTRIBUTION WIDTH 15.3 % (11.5-14.0); SEGMENTED NEUTROPHILS % (AUTO) 68.1 % (42-78); TOTAL CELLS COUNTED % (AUTO) 100 %; WHITE BLOOD COUNT 7.4 10^3/uL (4.0-10.5)
--- NOTE | 2019-04-28 15:03 | RADIOLOGY REPORT (SQ) ---
EXAM DESCRIPTION: CT HEAD WITHOUT COMPLETED DATE/TIME: 04/28/2019 2:53 pm REASON FOR STUDY: left side facial droop COMPARISON: None. TECHNIQUE: Axial images acquired through the brain without intravenous contrast. Images reviewed wi th bone, brain and subdural windows. Additional sagittal and coronal reconstructions were generated. Images stored on PACS. All CT scanners at this facility use dose modulation, iterative reconstruction, and/or weight based d osing when appropriate to reduce radiation dose to as low as reasonably achievable (ALARA). [facility]: Dose Right [facility]: CareDose [facility]: Dose Right [facility]: Teradose 4D [facility]: [employer] RADIATION DOSE: CT Rad equipment meets quality standard of care and radiation dose reduction techniq ues were employed. CTDIvol: 53.2 mGy. DLP: 991 mGy-cm. mGy. LIMITATIONS: None. FINDINGS: VENTRICLES: Normal size and contour. CEREBRUM: No masses. No hemorrhage. No midline shift. No evidence for acute infarction. Normal gra y/white matter differentiation. No areas of low density in the white matter. CEREBELLUM: No masses. No hemorrhage. No alteration of density. No evidence for acute infarction. EXTRAAXIAL SPACES: No fluid collections. No masses. ORBITS AND GLOBE: No intra- or extraconal masses. Normal contour of globe without masses. CALVARIUM: No fracture. PARANASAL SINUSES: No fluid or mucosal thickening. SOFT TISSUES: No mass or hematoma. OTHER: No other significant finding. IMPRESSION: No acute intracranial pathology. Consider MRI to more sensitively evaluate for acute di ffusion restricting infarction. EVIDENCE OF ACUTE STROKE: NO. COMMENT: Quality ID # [id number]: Final reports with documentation of one or more dose reduction techniques (e.g., Automated exposure control, adjustment of the mA and/or kV according to patient size, use of iterative reconstruction technique) TECHNICAL DOCUMENTATION: JOB ID: [id number] [employer]- All Rights Reserved Reading location - IP/workstation name: [email or web address]
[2019-04-28 15:16] LABS: ALBUMIN 4.7 g/dL (3.5-5.0); ALKALINE PHOSPHATASE 315 U/L (38-126); ANION GAP 17 (5-19); ASPARTATE AMINO TRANSFERASE 23 U/L (14-36); BILIRUBIN,DIRECT 0.5 mg/dL (0.0-0.4); BLOOD UREA NITROGEN 30 mg/dL (7-20); CALCIUM 8.3 mg/dL (8.4-10.2); CARBON DIOXIDE 26 mmol/L (22-30); CHLORIDE 86 mmol/L (98-107); POTASSIUM 4.6 mmol/L (3.6-5.0)
[2019-04-28 15:25] LABS: VENOUS BLOOD BASE EXCESS -2.8 mmol/L; VENOUS BLOOD HCO3 24.7 mmol/L (20-32); VENOUS BLOOD PCO2 55.7 mmHg (35-63); VENOUS BLOOD PH 7.27 (7.30-7.42)
[2019-04-28 15:31] LABS: GLUCOSE 723 mg/dL (75-110)
[2019-04-28] MEDS ORDERED: LABETALOL HCL INJ 20 MG/4 ML DISP.SYRIN IV ONE (15:31)
[2019-04-28 15:32] LABS: PLATELET COUNT 238 10^3/uL (150-450)
[2019-04-28] MEDS ORDERED: INSULIN REG, HUMAN 100 UNIT/ML 3 ML VIAL (PYX) IV ONE (17:06)
[2019-04-28] MEDS ORDERED: ASPIRIN 325 MG TABLET PO ONE (17:37)
--- NOTE | 2019-04-28 17:45 | EKG REPORT ---
SEVERITY:- ABNORMAL ECG - SINUS RHYTHM LEFT ATRIAL ABNORMALITY PROBABLE LVH WITH SECONDARY REPOL ABNRM : Confirmed by: Harry Vogel MD 28-Apr-2019 17:45:20
--- NOTE | 2019-04-28 18:02 | ER Document Report ---
ED General - General Chief Complaint: S/S of Possible Stroke Stated Complaint: POSSIBLE STROKE Time Seen by Provider: 04/28/19 14:19 TRAVEL OUTSIDE OF THE [place] IN LAST 30 DAYS: No - HPI Notes: Patient is a 58-year-old female with multiple medical issues, history of noncompliance, who presents to the emergency department for evaluation as a possible stroke. She states she woke this morning at about 730, had left-sided facial numbness, difficulty speaking, and a twitching sensation on her left face. She states she never had anything similar to this in the past. She denies any recent head trauma. She is moving her arms and legs without difficulty. - Related Data Allergies/Adverse Reactions: Penicillins Allergy (Severe, Verified 04/28/19 14:17) rash ciprofloxacin [From Cipro] Allergy (Verified 04/28/19 14:17) shellfish derived Allergy (Verified 04/28/19 14:17) Swelling of tongue oxycodone [From Percocet] Adverse Reaction (Verified 04/28/19 14:17) Past Medical History - General Information source: Patient - Social History Smoking Status: Former Smoker Chew tobacco use (# tins/day): No Frequency of alcohol use: None Drug Abuse: None Family History: DM, Hypertension Patient has suicidal ideation: No Patient has homicidal ideation: No - Past Medical History Cardiac Medical History: Reports: Hx Hypertension Denies: Hx Coronary Artery Disease, Hx Heart Attack Pulmonary Medical History: Reports: Hx Pneumonia Denies: Hx Asthma, Hx Bronchitis, Hx COPD Neurological Medical History: Denies: Hx Cerebrovascular Accident, Hx Seizures Endocrine Medical History: Reports: Hx Diabetes Mellitus Type 2. Denies: Hx Hyperthyroidism, Hx Hypothyroidism Renal/ Medical History: Reports: Hx End Stage Renal Disease, Hx Hemodialysis. Denies: Hx Peritoneal Dialysis GI Medical History: Denies: Hx Cirrhosis, Hx Crohn's Disease, Hx Hepatitis, Hx Ulcerative Colitis Musculoskeletal Medical History: Denies Hx Arthritis, Denies Hx Fibromyalgia Skin Medical History: Denies Hx Eczema, Denies Hx Psoriasis Psychiatric Medical History: Denies: Hx Depression Infectious Medical History: Denies: Hx Hepatitis Past Surgical History: Reports: Hx Appendectomy, Hx Cholecystectomy, Hx Orthopedic Surgery - feet, Hx Tubal Ligation, Hx Vascular Surgery - fistula upper arm, Other - Hemodialysis vascular access left upper extremity - Immunizations Hx Diphtheria, Pertussis, Tetanus Vaccination: No Hx Pneumococcal Vaccination: 01/01/17 Review of Systems - Review of Systems Constitutional: No symptoms reported EENT: No symptoms reported Cardiovascular: No symptoms reported Respiratory: No symptoms reported Gastrointestinal: No symptoms reported Genitourinary: No symptoms reported Musculoskeletal: No symptoms reported Skin: No symptoms reported Neurological/Psychological: See HPI Physical Exam - Vital signs Vitals: Temp Pulse Resp BP Pulse Ox 98 F 83 16 220/74 H 92 04/28/19 14:23 04/28/19 14:23 04/28/19 14:23 04/28/19 14:23 04/28/19 14:23 - Notes Notes: Vital signs reviewed, please refer to chart. Head is normocephalic, atraumatic. Pupils equal round, reactive to light. Neck is supple without meningismus. Heart is regular rate and rhythm. Lungs are clear to auscultation bilaterally. Fistula in left upper extremity, palpable thrill. Abdomen is soft, nontender, normoactive bowel sounds throughout. Extremities without cyanosis, clubbing. Posterior calves are nontender. Peripheral pulses are equal. Skin is warm and dry. Patient is awake, alert, oriented x3. Patient has very mild nasolabial fold asymmetry on the left, mild dysarthria. The remainder of cranial nerves II through XII are grossly intact without focal neurological deficits.. Strength is plus 5 out of 5 bilateral upper and lower extremities. Sensation is intact. Reflexes symmetrical. Intact [id number], rapid alternating movements, [id number]. Course - Re-evaluation Re-evalutation: 04/28/19 17:59 Patient presents emergency department for evaluation. She complains of focal ne urological deficits, but she awoke with them. She is certainly outside of the window for TPA and any sort of a CVA situation. On arrival here her blood pressure was markedly elevated as well. She was treated here, her blood pressure improved significantly, but her dysarthria and mild facial droop persisted. Laboratory investigations revealed a significant hyperglycemia. She is not acidotic. She does not have an anion gap. She was started on insulin drip. She was given aspirin as a possible CVA treatment. I spoke with Dr. Mccarthy, he will accept the patient on behalf of Leila Ortiz NP. She will come down and evaluate the patient. 04/28/19 20:26 Was later notified that the hospital does not have any dialysis beds available. [facility] on regional diversion. I spoke with Dr. Max, internal medicine physician at [facility], who accepted the patient in transfer. - Vital Signs Vital signs: Temp Pulse Resp BP Pulse Ox 98 F 83 14 127/56 H 97 04/28/19 14:23 04/28/19 14:53 04/28/19 18:20 04/28/19 18:01 04/28/19 18:20 - Laboratory Result Diagrams: 04/28/19 14:35 04/28/19 14:35 Laboratory results interpreted by me: 04/28/19 04/28/19 04/28/19 14:35 14:35 14:35 RBC 3.68 L Hgb 11.6 L Hct 35.9 L RDW 15.3 H VBG pH 7.27 L Sodium 129.2 L Chloride 86 L BUN 30 H Creatinine 4.77 H Est GFR ( Amer) 11 L Est GFR (MDRD) Non-Af 9 L Glucose 723 H* Calcium 8.3 L Direct Bilirubin 0.5 H Alkaline Phosphatase 315 H Total Protein 9.0 H - Diagnostic Test Radiology reviewed: Reports reviewed Radiology results interpreted by me: 04/28/19 18:[address] 04/28/19 14:19 IMPRESSION: No acute intracranial pathology. Consider MRI to more sensitively evaluate for acute diffusion restricting infarction. EVIDENCE OF ACUTE STROKE: NO. - EKG Interpretation by Me Additional EKG results interpreted by me: 04/28/19 18:00 Sinus mechanism with a rate of 71 bpm. Normal axis. Nonspecific ST changes, but no acute changes concerning for ischemia or infarction. No significant change compared to prior study of February 22, 2019 Critical Care Note - Critical Care Note Total time excluding time spent on procedures (mins): 40 Discharge - Discharge Clinical Impression: Hyperglycemia, CVA (cerebral vascular accident), Hypertension Condition: Stable Disposition: [facility] Admitting Provider: Dr. Max Unit Admitted: Telemetry
[2019-04-28] MEDS ORDERED: INSULIN GLARGINE,HUM.REC.ANLOG 1,000 UNIT/10 ML VIAL SUBCUT ONE (18:34)
[2019-04-28] MEDS ORDERED: NORMAL SALINE 1000 ML 1,000 ML IV ONE (19:00)
[2019-04-28] MEDS ORDERED: DEXTROSE 40% GEL 15 GM TUBE PO PRN ×2 (20:26)
[2019-04-28] MEDS ORDERED: NORMAL SALINE 100 ML with INSULIN REGULAR, HUMAN 100 UNIT IV PRN ×2 (20:26)
[2019-04-28] MEDS ORDERED: GLUCAGON,HUMAN RECOMB 1 MG INJ IM PRN (20:26)
[2019-04-28] MEDS ORDERED: DEXTROSE 50%-WATER 25 GM/50 ML DISP.SYRIN IV PRN ×2 (20:26)
[2019-04-28 22:51] VITALS: BP 128/69
== END 2019-04-28 22:45 | disposition short-term general hospital (02) ==
LOC: ER 14:11 → EH 18:10 → UNDOADMIN 18:10 → UNDODISIN 22:45 → ER 22:45
DX: I63.9 Cerebral infarction, unspecified (principal); I10 Essential (primary) hypertension; E11.65 Type 2 diabetes mellitus with hyperglycemia; R20.0 Anesthesia of skin; Z87.891 Personal history of nicotine dependence
CPT/HCPCS: 93005; 99291; 96374; 36415; 82962; 83605; 83735; 85025; 80053; 82803; 70450; 93010; A9270 ×2; J3490; J1815

== ENCOUNTER 2019-05-24 08:42 | Inpatient (IN) | payer MEDICARE, MEDICAID ==
--- NOTE | 2019-05-24 09:06 | RADIOLOGY REPORT (SQ) ---
EXAM DESCRIPTION: CHEST SINGLE VIEW COMPLETED DATE/TIME: 05/24/2019 8:55 am REASON FOR STUDY: stroke S/S COMPARISON: Chest films 02/22/2019, 02/15/2019, 08/24/2018, 05/25/2018 EXAM PARAMETERS: NUMBER OF VIEWS: One view. TECHNIQUE: Single frontal radiographic view of the chest acquired. RADIATION DOSE: NA LIMITATIONS: None. FINDINGS: LUNGS AND PLEURA: There is chronic blunting of the right lateral costophrenic sulcus from pleural thickening or pleural fluid. There is superimposed interstitial pulmonary edema with Em lines. New trace left pleural effusio n. Pulmonary vascular congestion. Findings are worrisome for superimposed fluid overload or congest tyson failure. No dense consolidation worrisome for pneumonia. MEDIASTINUM AND HILAR STRUCTURES: No masses. Contour normal. HEART AND VASCULAR STRUCTURES: No cardiomegaly BONES: No acute findings. HARDWARE: Left subclavian/ axillary vein stent OTHER: No other significant finding. IMPRESSION: Mild fluid overload or congestive failure TECHNICAL DOCUMENTATION: JOB ID: [id number] [employer]- All Rights Reserved Reading location - IP/workstation name: [email or web address]
--- NOTE | 2019-05-24 09:12 | RADIOLOGY REPORT (SQ) ---
EXAM DESCRIPTION: CT HEAD WITHOUT COMPLETED DATE/TIME: 05/24/2019 8:55 am REASON FOR STUDY: stroke S/S COMPARISON: 05/08/2019 CT brain TECHNIQUE: Axial images acquired through the brain without intravenous contrast. Images reviewed wi th bone, brain and subdural windows. Additional sagittal and coronal reconstructions were generated. Images stored on PACS. All CT scanners at this facility use dose modulation, iterative reconstruction, and/or weight based d osing when appropriate to reduce radiation dose to as low as reasonably achievable (ALARA). [facility]: Dose Right [facility]: CareDose [facility]: Dose Right [facility]: Teradose 4D [facility]: Smart [employer] RADIATION DOSE: CT Rad equipment meets quality standard of care and radiation dose reduction techniq ues were employed. CTDIvol: 53.2 mGy. DLP: 991 mGy-cm. mGy. LIMITATIONS: None. FINDINGS: VENTRICLES: Normal size and contour. CEREBRUM: No masses. No hemorrhage. No midline shift. No evidence for acute infarction. Normal gra y/white matter differentiation. No areas of low density in the white matter. CEREBELLUM: No masses. No hemorrhage. No alteration of density. No evidence for acute infarction. EXTRAAXIAL SPACES: No fluid collections. No masses. ORBITS AND GLOBE: No intra- or extraconal masses. Normal contour of globe without masses. CALVARIUM: No fracture. PARANASAL SINUSES: No fluid or mucosal thickening. SOFT TISSUES: No mass or hematoma. OTHER: No other significant finding. IMPRESSION: NORMAL BRAIN CT WITHOUT CONTRAST. EVIDENCE OF ACUTE STROKE: NO. COMMENT: Pertinent findings on the imaging study reported as a CRITICAL RESULT to DR CEVALLOS at09:00 on 05/24/2019. Category of Critical Result: CT code stroke Quality ID # 436: Final reports with documentation of one or more dose reduction techniques (e.g., Au tomated exposure control, adjustment of the mA and/or kV according to patient size, use of iterative reconstruction technique) TECHNICAL DOCUMENTATION: JOB ID: [id number]- All Rights Reserved Reading location - IP/workstation name: [email or web address]
--- NOTE | 2019-05-24 09:13 | ER Document Report ---
ED General - General Chief Complaint: S/S of Possible Stroke Stated Complaint: POSSIBLE STROKE Time Seen by Provider: 05/24/19 09:12 Primary Care Provider: IRENE SAMANIEGO MD [Primary Care Provider] - Follow up as needed TRAVEL OUTSIDE OF THE [place] IN LAST 30 DAYS: No - Related Data Allergies/Adverse Reactions: Penicillins Allergy (Severe, Verified 04/28/19 14:17) rash ciprofloxacin [From Cipro] Allergy (Verified 04/28/19 14:17) shellfish derived Allergy (Verified 04/28/19 14:17) Swelling of tongue oxycodone [From Percocet] Adverse Reaction (Verified 04/28/19 14:17) Past Medical History - Social History Smoking Status: Unknown if Ever Smoked Family History: DM, Hypertension Patient has suicidal ideation: No Patient has homicidal ideation: No - Past Medical History Cardiac Medical History: Reports: Hx Hypertension Denies: Hx Coronary Artery Disease, Hx Heart Attack Pulmonary Medical History: Reports: Hx Pneumonia Denies: Hx Asthma, Hx Bronchitis, Hx COPD Neurological Medical History: Denies: Hx Cerebrovascular Accident, Hx Seizures Endocrine Medical History: Reports: Hx Diabetes Mellitus Type 1, Hx Diabetes Mellitus Type 2. Denies: Hx Hyperthyroidism, Hx Hypothyroidism Renal/ Medical History: Reports: Hx End Stage Renal Disease, Hx Hemodialysis. Denies: Hx Peritoneal Dialysis GI Medical History: Denies: Hx Cirrhosis, Hx Crohn's Disease, Hx Hepatitis, Hx Ulcerative Colitis Musculoskeletal Medical History: Denies Hx Arthritis, Denies Hx Fibromyalgia Skin Medical History: Denies Hx Eczema, Denies Hx Psoriasis Psychiatric Medical History: Denies: Hx Depression Infectious Medical History: Denies: Hx Hepatitis Past Surgical History: Reports: Hx Appendectomy, Hx Cholecystectomy, Hx Orthopedic Surgery - feet, Hx Tubal Ligation, Hx Vascular Surgery - fistula upper arm, Other - Hemodialysis vascular access left upper extremity - Immunizations Hx Diphtheria, Pertussis, Tetanus Vaccination: No Hx Pneumococcal Vaccination: 07/21/16 Course - Re-evaluation Re-evalutation: 05/24/19 09:13 EKG shows heart of 82, normal sinus rhythm, normal axis, no ST elevation or depression Discharge - Discharge Referrals: IRENE SAMANIEGO MD [Primary Care Provider] - Follow up as needed
[2019-05-24] MEDS ORDERED: ASPIRIN 81 MG TABLET, CHEWABLE PO ONE (09:27)
[2019-05-24 09:33] LABS: ABSOLUTE BASOPHILS # (AUTO) 0.1 10^3/uL (0.0-0.2); ABSOLUTE EOSINOPHILS # (AUTO) 0.1 10^3/uL (0.0-0.6); ABSOLUTE LYMPHOCYTES (AUTO) 0.8 10^3/uL (0.5-4.7); ABSOLUTE MONOCYTES (AUTO) 0.6 10^3/uL (0.1-1.4); ABSOLUTE NEUT (AUTO) 7.2 10^3/uL (1.7-8.2); EOSINOPHILS % (AUTO) 1.6 % (0-6); HEMOGLOBIN 10.5 g/dL (12.0-15.5); LYMPHOCYTES % (AUTO) 8.8 % (13-45); MEAN CORPUSCULAR HGB CONC 31.7 g/dL (32.0-36.0); MEAN CORPUSCULAR VOLUME 98 fl (80-97); MONOCYTES % (AUTO) 6.6 % (3-13); PLATELET COUNT 274 10^3/uL (150-450); RED BLOOD COUNT 3.38 10^6/uL (3.72-5.28); RED CELL DISTRIBUTION WIDTH 15.3 % (11.5-14.0); TOTAL CELLS COUNTED % (AUTO) 100 %; WHITE BLOOD COUNT 8.7 10^3/uL (4.0-10.5)
[2019-05-24 09:35] LABS: PARTIAL THROMBOPLASTIN TIME 29.1 SEC (23.5-35.8)
[2019-05-24 09:41] LABS: PROTHROMBIN TIME 15.3 SEC (11.4-15.4)
[2019-05-24 09:50] LABS: ALKALINE PHOSPHATASE 276 U/L (38-126); ANION GAP 16 (5-19); ASPARTATE AMINO TRANSFERASE 20 U/L (14-36); BILIRUBIN,DIRECT 0.5 mg/dL (0.0-0.4); BILIRUBIN,TOTAL 0.9 mg/dL (0.2-1.3); BLOOD UREA NITROGEN 41 mg/dL (7-20); CALCIUM 8.4 mg/dL (8.4-10.2); CARBON DIOXIDE 23 mmol/L (22-30); CHLORIDE 86 mmol/L (98-107); CREATINE KINASE 75 U/L (30-135); POTASSIUM 4.8 mmol/L (3.6-5.0); TOTAL PROTEIN 7.7 g/dL (6.3-8.2)
--- NOTE | 2019-05-24 09:57 | ER Document Report ---
ED General - General Chief Complaint: S/S of Possible Stroke Stated Complaint: POSSIBLE STROKE Time Seen by Provider: 05/24/19 09:12 Primary Care Provider: IRENE SAMANIEGO MD [Primary Care Provider] - Follow up as needed Notes: HPI: I took over the care of this patient given the previous provider who had an NIH score initially of 1 upon arrival was brought into a code. This is a 59-year-old female who presents secondary to yesterday feeling a little "bad". When I asked her to describe what that means, she states she just felt "tired". This was around 3:30 PM yesterday. When she awoke she states she had some "slurred speech". Patient denies any and all headache, neck pain, chest pain, palpitations, abdominal pain, nausea, vomiting, fevers, diarrhea, dysuria, weakness or numbness of the arms or legs. She was called code stroke secondary to slurred speech. 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 ROS: See HPI All other review of systems reviewed and otherwise negative Reviewed vital signs and nursing note as charted by RN. PHYSICAL EXAM: CONSTITUTIONAL: Alert and oriented and responds appropriately to questions. Well-appearing; well-nourished HEAD: Normocephalic; atraumatic EYES: PERRL; no nystagmus ENT: Normal nose; no rhinorrhea; moist mucous membranes; patient has white plaque-like lesions to the tongue and buccal mucosa consistent with thrush. I do not detect any obvious thrush to the posterior pharyngeal region; pharynx without lesions noted NECK: Supple without meningismus; non-tender; no cervical lymphadenopathy, no masses CARD: Regular rate and rhythm; no murmurs; symmetric distal pulses RESP: Normal chest excursion without splinting or tachypnea; breath sounds clear and equal bilaterally; no wheezes, no rhonchi, no rales ABD/GI: Normal bowel sounds; non-distended; soft, non-tender; no palpable organomegaly or masses BACK: The back appears normal and is non-tender to palpation EXT: Normal ROM in all joints; non-tender to palpation; no edema SKIN: No acute lesions noted NEURO: CN 2-12 intact except for some slurred speech; she has no facial asymmetry; 5/5 bilateral upper and lower extremity strength with sensation intact to light touch PSYCH: The patient's mood and manner are appropriate. Grooming and personal h ygiene are appropriate. TRAVEL OUTSIDE OF THE [place] IN LAST 30 DAYS: No - Related Data Allergies/Adverse Reactions: Penicillins Allergy (Severe, Verified 04/28/19 14:17) rash ciprofloxacin [From Cipro] Allergy (Verified 04/28/19 14:17) shellfish derived Allergy (Verified 04/28/19 14:17) Swelling of tongue oxycodone [From Percocet] Adverse Reaction (Verified 04/28/19 14:17) Past Medical History - Social History Smoking Status: Unknown if Ever Smoked Family History: DM, Hypertension Patient has suicidal ideation: No Patient has homicidal ideation: No - Past Medical History Cardiac Medical History: Reports: Hx Hypertension Denies: Hx Coronary Artery Disease, Hx Heart Attack Pulmonary Medical History: Reports: Hx Pneumonia Denies: Hx Asthma, Hx Bronchitis, Hx COPD Neurological Medical History: Denies: Hx Cerebrovascular Accident, Hx Seizures Endocrine Medical History: Reports: Hx Diabetes Mellitus Type 1, Hx Diabetes Mellitus Type 2. Denies: Hx Hyperthyroidism, Hx Hypothyroidism Renal/ Medical History: Reports: Hx End Stage Renal Disease, Hx Hemodialysis. Denies: Hx Peritoneal Dialysis GI Medical History: Denies: Hx Cirrhosis, Hx Crohn's Disease, Hx Hepatitis, Hx Ulcerative Colitis Musculoskeletal Medical History: Denies Hx Arthritis, Denies Hx Fibromyalgia Skin Medical History: Denies Hx Eczema, Denies Hx Psoriasis Psychiatric Medical History: Denies: Hx Depression Infectious Medical History: Denies: Hx Hepatitis Past Surgical History: Reports: Hx Appendectomy, Hx Cholecystectomy, Hx Orthopedic Surgery - feet, Hx Tubal Ligation, Hx Vascular Surgery - fistula upper arm, Other - Hemodialysis vascular access left upper extremity - Immunizations Hx Diphtheria, Pertussis, Tetanus Vaccination: No Hx Pneumococcal Vaccination: 07/21/16 Physical Exam - Vital signs Vitals: Resp Pulse Ox 20 96 05/24/19 08:58 05/24/19 08:58 Course - Re-evaluation Re-evalutation: 05/24/19 09:52 CT scan of the head is unremarkable for an acute process. NIH score is becca culated at a 1 secondary to some garbled speech. However the patient does appear to have some involuntary movements of the mouth appearing like a dystonic reaction, as well as thrush on the tongue. I will provide a dose of Diflucan. We will review the patient's previous admission. Given the NIH score of 1, with a strange presentation as above, I do not believe that the patient is a TPA candidate. 05/24/19 10:06 EKG shows heart of 82, normal sinus rhythm, normal axis, no ST elevation or depr ession I did review the patient's previous charting it appears that the patient about a month ago had a similar presentation with some left facial droop at that time. She also had extremity symptoms. She also had an elevated blood glucose. Given that the patient needed dialysis that day she had a get sent to another center and went to [facility]. I am unable to see the discharge summary. Patient's blood sugar as recorded. I have added on a VBG. Patient does have a normal gap but given the elevation of the patient's blood sugar we will provide an insulin drip. Patient did not take her blood pressure medications as well so I have provided her clonidine and amlodipine. Patient did have dialysis yesterday with a potassium of 4.8. No change in neurologic exam. Diflucan, blood pressure medications, and insulin drip have been started. - Vital Signs Vital signs: Temp Pulse Resp BP Pulse Ox 99.0 F 18 219/83 H 93 05/24/19 09:01 05/24/19 09:02 05/24/19 09:02 05/24/19 09:02 - Laboratory Result Diagrams: 05/24/19 09:16 05/24/19 09:16 Laboratory results interpreted by me: 05/24/19 05/24/19 09:16 09:16 RBC 3.38 L Hgb 10.5 L Hct 33.0 L MCV 98 H MCHC 31.7 L RDW 15.3 H Lymph % (Auto) 8.8 L Seg Neutrophils % 82.0 H Sodium 124.6 L Chloride 86 L BUN 41 H Creatinine 5.81 H Est GFR ( Amer) 9 L Est GFR (MDRD) Non-Af 7 L Glucose 877 H* Direct Bilirubin 0.5 H Alkaline Phosphatase 276 H Critical Care Note - Critical Care Note Total time excluding time spent on procedures (mins): 35 Discharge - Discharge Clinical Impression: Slurred speech, Hyperglycemia, Oral thrush Condition: Fair Disposition: ADMITTED INPATIENT Admitting Provider: Sudhakar (Hospitalist) Unit Admitted: Telemetry Referrals: IRENE SAMANIEGO MD [Primary Care Provider] - Follow up as needed
[2019-05-24] MEDS ORDERED: FLUCONAZOLE 100 MG TABLET PO ONE (09:59)
[2019-05-24 10:01] LABS: GLUCOSE 877 mg/dL (75-110)
[2019-05-24] MEDS ORDERED: CLONIDINE HCL 0.2 MG TABLET PO ONE (10:02)
[2019-05-24 10:03] LABS: CREATINE KINASE MB 2.03 ng/mL (<4.55)
[2019-05-24] MEDS ORDERED: HYDRALAZINE HCL 10 MG TABLET PO ONE (10:03)
[2019-05-24] MEDS ORDERED: DEXTROSE 50%-WATER 25 GM/50 ML DISP.SYRIN IV PRN ×6 (10:04→17:29)
[2019-05-24] MEDS ORDERED: GLUCAGON,HUMAN RECOMB 1 MG INJ IM PRN ×3 (10:04→17:29)
[2019-05-24] MEDS ORDERED: NORMAL SALINE 100 ML with INSULIN REGULAR, HUMAN 100 UNIT IV PRN ×4 (10:04→10:30)
[2019-05-24] MEDS ORDERED: DEXTROSE 40% GEL 15 GM TUBE PO PRN ×6 (10:04→17:29)
[2019-05-24 10:07] LABS: TROPONIN I 0.039 ng/mL
[2019-05-24] MEDS ORDERED: ACETAMINOPHEN 325 MG TABLET PO PRN (10:29)
[2019-05-24] MEDS ORDERED: MAGNESIUM HYDROXIDE SUSP 30 ML UDCUP PO PRN (10:29)
[2019-05-24] MEDS ORDERED: TEMAZEPAM 15 MG CAPSULE PO PRN (10:29)
[2019-05-24] MEDS ORDERED: NORMAL SALINE 1000 ML 1,000 ML IV PRN (10:33)
[2019-05-24] MEDS ORDERED: DIAZEPAM 5 MG TABLET PO PRN (10:34)
[2019-05-24] MEDS ORDERED: NITROGLYCERIN/D5W 50 MG/250 ML RTUINJ IV PRN (10:39)
[2019-05-24] MEDS ORDERED: NYSTATIN 500000 UNIT/5 ML UDCUP PO SCH (10:45)
--- NOTE | 2019-05-24 10:45 | PDOC H&P ---
History of Present Illness Admission Date/PCP: 05/24/2019 IRENE SAMANIEGO Patient complains of: Facial tic History of Present Illness: SAMIA HEALY is a 59 year old female who presented to the emergency department with stating that she just feeling bad. Patient states she woke around 3:30 PM yesterday with some slurred speech denied any and all headache, neck pain, chest pain, palpitations, abdominal pain, nausea, vomiting, fever, diarrhea or any other symptoms. Patient reports that one month ago she had a TIA in the left carotid artery that was occluded. Patient is a dialysis patient with dialysis on Friday. Patient was post follow-up with the vascular surgeon on outpatient basis which he has not done at this time. Patient does have a strong facial tic that is persistent. She had no treatment prior to arrival no known aggravating factors. Past Medical History Cardiac Medical History: Reports: Hypertension Denies: Coronary Artery Disease, Myocardial Infarction Pulmonary Medical History: Reports: Pneumonia Denies: Asthma, Bronchitis, Chronic Obstructive Pulmonary Disease (COPD) Neurological Medical History: Denies: Seizures Endocrine Medical History: Reports: Diabetes Mellitus Type 1, Diabetes Mellitus Type 2 Denies: Hyperthyroidism, Hypothyroidism Renal/ Medical History: Reports: End Stage Renal Disease GI Medical History: Denies: Cirrhosis, Crohn's Disease, Hepatitis, Ulcerative Colitis Musculoskeltal Medical History: Denies: Arthritis, Fibromyalgia Skin Medical History: Denies: Eczema, Psoriasis Psychiatric Medical History: Denies: Depression Hematology: Denies: Anemia, Bleeding Tendencies Past Surgical History Past Surgical History: Reports: Appendectomy, Cholecystectomy, Orthopedic Surgery - feet, Tubal Ligation, Vascular Surgery - fistula upper arm, Other - Hemodialysis vascular access left upper extremity Social History Information Source: Patient Lives with: Family Smoking Status: Unknown if Ever Smoked Electronic Cigarette use?: No Frequency of Alcohol Use: None Hx Recreational Drug Use: No Drugs: None Hx Prescription Drug Abuse: No - Advance Directive Resuscitation Status: Full Code Family History Family History: DM, Hypertension Parental Family History Reviewed: Yes Children Family History Reviewed: Yes Sibling(s) Family History Reviewed.: Yes Medication/Allergy Home Medications: Amlodipine Besylate [Norvasc 5 mg Tablet] 5 mg PO QHS 04/28/19 Clonidine HCl [Catapres 0.3 mg Tablet] 0.3 mg PO Q7D 04/28/19 Gabapentin [Neurontin 100 mg Capsule] 200 mg PO Q12 04/28/19 Insulin Aspart [Novolog Flexpen] 0 units SQ .SLIDING SCALE 04/28/19 Insulin Aspart [Novolog Flexpen] 9 units SQ MEALS 04/28/19 Insulin Degludec [Tresiba Flextouch U-100] 16 units SQ DAILY 04/28/19 Allergies/Adverse Reactions: Penicillins Allergy (Severe, Verified 04/28/19 14:17) rash ciprofloxacin [From Cipro] Allergy (Verified 04/28/19 14:17) shellfish derived Allergy (Verified 04/28/19 14:17) Swelling of tongue oxycodone [From Percocet] Adverse Reaction (Verified 04/28/19 14:17) Review of Systems Constitutional: PRESENT: weakness, other - Facial tic. ABSENT: chills, fever(s), headache(s), weight gain, weight loss Eyes: ABSENT: visual disturbances Ears: ABSENT: hearing changes Cardiovascular: ABSENT: chest pain, dyspnea on exertion, edema, orthropnea, palpitations Respiratory: ABSENT: cough, hemoptysis Gastrointestinal: ABSENT: abdominal pain, constipation, diarrhea, hematemesis, hematochezia, nausea, vomiting Genitourinary: ABSENT: dysuria, hematuria Musculoskeletal: ABSENT: joint swelling Integumentary: ABSENT: rash, wounds Neurological: ABSENT: abnormal gait, abnormal speech, confusion, dizziness, focal weakness, syncope Psychiatric: ABSENT: anxiety, depression, homidical ideation, suicidal ideation Endocrine: ABSENT: cold intolerance, heat intolerance, polydipsia, polyuria Hematologic/Lymphatic: ABSENT: easy bleeding, easy bruising Physical Exam Vital Signs: Temp Pulse Resp BP Pulse Ox 99.0 F 18 219/83 H 93 05/24/19 09:01 05/24/19 09:02 05/24/19 09:02 05/24/19 09:02 Intake & Output 05/23/19 05/24/19 05/25/19 06:59 06:59 06:59 Weight 72.5 kg General appearance: PRESENT: no acute distress, well-developed, well-nourished Head exam: PRESENT: atraumatic, normocephalic Eye exam: PRESENT: conjunctiva pink, EOMI, PERRLA. ABSENT: scleral icterus Ear exam: PRESENT: normal external ear exam Mouth exam: PRESENT: moist, tongue midline, other - Thrush Neck exam: PRESENT: other - Continuous left facial tic. ABSENT: carotid bruit, JVD, lymphadenopathy, thyromegaly Respiratory exam: PRESENT: clear to auscultation carlos. ABSENT: rales, rhonchi, wheezes Cardiovascular exam: PRESENT: RRR. ABSENT: diastolic murmur, rubs, systolic murmur Pulses: PRESENT: normal dorsalis pedis pul Vascular exam: PRESENT: normal capillary refill GI/Abdominal exam: PRESENT: normal bowel sounds, soft. ABSENT: distended, guarding, mass, organolmegaly, rebound, tenderness Rectal exam: PRESENT: deferred Extremities exam: PRESENT: full ROM. ABSENT: calf tenderness, clubbing, pedal edema Neurological exam: PRESENT: alert, awake, oriented to person, oriented to place, oriented to time, oriented to situation, CN II-XII grossly intact. ABSENT: motor sensory deficit Psychiatric exam: PRESENT: appropriate affect, normal mood. ABSENT: homicidal ideation, suicidal ideation Skin exam: PRESENT: dry, intact, warm. ABSENT: cyanosis, rash Results Laboratory Results: 05/24/19 09:16 05/24/19 09:16 05/24/19 05/24/19 09:16 09:16 WBC 8.7 RBC 3.38 L Hgb 10.5 L Hct 33.0 L MCV 98 H MCH 31.0 MCHC 31.7 L RDW 15.3 H Plt Count 274 Seg Neutrophils % 82.0 H Sodium 124.6 L Potassium 4.8 Chloride 86 L Carbon Dioxide 23 Anion Gap 16 BUN 41 H Creatinine 5.81 H Est GFR ( Amer) 9 L Glucose 877 H* Calcium 8.4 Total Bilirubin 0.9 AST 20 Alkaline Phosphatase 276 H Total Protein 7.7 Albumin 4.0 05/24/19 05/24/19 09:16 09:16 Creatine Kinase 75 CK-MB (CK-2) 2.03 Troponin I 0.039 Impressions: Chest X-Ray 05/24/19 08:44 IMPRESSION: Mild fluid overload or congestive failure Head CT 05/24/19 08:44 IMPRESSION: NORMAL BRAIN CT WITHOUT CONTRAST. EVIDENCE OF ACUTE STROKE: NO. Assessment and Plan - Diagnosis (1) Hyperglycemia Is this a current diagnosis for this admission?: Yes Plan: 05/24/2019-patient blood sugar 800 range at this time. Patient placed on insulin drip in the ER. We will continue insulin drip nightly fingersticks. Get an A1c. Patient does have a known history of diabetes but is not on compliant with medications. Will titrate until blood sugar is in the normal range and will continue home medications and insulin sliding scale. (2) Hypertensive urgency Is this a current diagnosis for this admission?: Yes Plan: 05/24/2019-we will give patient home medications. Will place patient on a nitroglycerin drip to keep systolic blood pressure less than 160 systolic. Will titrate home medications to achieve effect. (3) Oral thrush Is this a current diagnosis for this admission?: Yes Plan: 05/24/2019-nystatin swish and swallow 500,000 units every 4 hours. (4) End stage renal failure on dialysis Is this a current diagnosis for this admission?: Yes Plan: 05/24/2019-patient is a Friday dialysis patient. Consult Dr. Gutierres to continue dialysis in a.m. (5) Slurred speech Is this a current diagnosis for this admission?: Yes Plan: 05/24/2019-patient did have recent TIA. Patient's CT of the head was normal. We will get an MRI, carotid Doppler echocardiogram. May change plan of care based on future findings. Continue aspirin at this time. (6) Hyponatremia Is this a current diagnosis for this admission?: Yes Plan: 05/24/2019-sodium 124. As patient has end-stage renal disease patient with dialysis I will give her normal saline at 50 mL an hour for gentle sodium repletion. Repeat BMP in a.m. - Time Time Spent with patient: 35 or more minutes - Inpatient Certification Based on my medical assessment, after consideration of the patient's comorbidities, presenting symptoms, or acuity I expect that the services needed warrant INPATIENT care.: Yes I certify that my determination is in accordance with my understanding of Medicare's requirements for reasonable and necessary INPATIENT services [42 CFR 412.3e].: Yes Medical Necessity: Significant Comorbidiites Make Outpatient Treatment Too Risky, Need Close Monitoring Due to Risk of Patient Decompensation
[2019-05-24] MEDS ORDERED: INSULIN REG, HUMAN 100 UNIT/ML 3 ML VIAL (PYX) ONE (10:46)
[2019-05-24] MEDS ORDERED: HEPARIN SOD (PORCINE) 1,000 UNIT/ML 10 ML VIAL IV PRN (13:27)
[2019-05-24] MEDS ORDERED: INFLUENZA QUAD (6MOS+) 2019-20 VAC 0.5 ML SYR IM ONE (13:32)
[2019-05-24] MEDS: HEPARIN SOD (PORCINE) 5,000 UNIT/ML 1 ML VIAL SUBCUT SCH ×2 (13:58→21:39)
[2019-05-24] MEDS: NYSTATIN 500000 UNIT/5 ML UDCUP PO SCH ×3 (13:59→21:39)
[2019-05-24] MEDS ORDERED: HYDRALAZINE HCL INJ/PF 20 MG/1 ML SDV IV PRN (14:06)
--- NOTE | 2019-05-24 17:49 | PDOC CONSULTATION ---
Consultation Consult Date: 05/24/19 Provider Consulted: Brooke FLORES Consult reason:: ESRD for HD History of Present Illness Admission Date/PCP: 05/24/19 10:41 IRENE SAMANIEGO History of Present Illness: SAMIA HEALY is a 59 year old female with a history of ESRD on hemodialysis in the background of diabetes, hypertension was admitted with history of left facial numbness and slurred speech. Comorbidities includes noncompliance with diet and blood sugar control, history of congestive heart failure but unsure if it has been worked up. She also mentions that she has had a similar presentation approximately a month ago and apparently supposed to see a vascular surgeon but has not yet been able to keep the appointment. Do not see any records of admissions or evaluations towards that here at this hospital. She says she began to experience numbness of the left half of her face along with slurred speech yesterday onwards and she has not felt any better. No history of any weakness of her left lower or upper extremity. No history of any headaches visual disturbances or seizures.CT of the brain-noncontrasted was unremarkable. Labs and medications were reviewed. It shows severe uncontrolled blood sugars around 800+ with a sodium of 124.Patient is currently being seen while undergoing dialysis. She is quite comfortable and in no distress. She has no focal deficits in the form of focal weaknesses of any of the upper or lower extremities. Vital signs are stable. Dialysis orders were reviewed with the treating dialysis nurse. i Past Medical History Cardiac Medical History: Reports: Hypertension-primary Denies: Coronary Artery Disease, Myocardial Infarction Pulmonary Medical History: Reports: Pneumonia Denies: Asthma, Bronchitis, Chronic Obstructive Pulmonary Disease (COPD) Neurological Medical History: Denies: Seizures Endocrine Medical History: Reports: Diabetes Mellitus Type 1, Diabetes Mellitus Type 2 Denies: Hyperthyroidism, Hypothyroidism Renal/ Medical History: Reports: End Stage Renal Disease, Secondary Hyperparathyroidism GI Medical History: Denies: Cirrhosis, Crohn's Disease, Hepatitis, Ulcerative Colitis Musculoskeltal Medical History: Denies: Arthritis, Fibromyalgia Skin Medical History: Denies: Eczema, Psoriasis Psychiatric Medical History: Denies: Depression Hematology Medical History: Reports Anemia of Chronic Kidney Disease Past Surgical History Past Surgical History: Reports: Appendectomy, Cholecystectomy, Dialysis Access Surgery AVF, Orthopedic Surgery - feet, Tubal Ligation, Vascular Surgery - fistula upper arm, Other - Hemodialysis vascular access left upper extremity Social History Lives with: Family Smoking Status: Unknown if Ever Smoked Electronic Cigarette use?: No Frequency of Alcohol Use: None Hx Recreational Drug Use: No Drugs: None Hx Prescription Drug Abuse: No - Advance Directive Resuscitation Status: Full Code Family History Parental Family History Reviewed: Yes - Negative for ESRD Children Family History Reviewed: No Sibling(s) Family History Reviewed.: No Medication/Allergy Home Medications: Amlodipine Besylate [Norvasc 5 mg Tablet] 5 mg PO QHS 04/28/19 Clonidine HCl [Catapres 0.3 mg Tablet] 0.3 mg PO Q7D 04/28/19 Gabapentin [Neurontin 100 mg Capsule] 200 mg PO Q12 04/28/19 Insulin Aspart [Novolog Flexpen] 0 units SQ .SLIDING SCALE 04/28/19 Insulin Aspart [Novolog Flexpen] 9 units SQ MEALS 04/28/19 Insulin Degludec [Tresiba Flextouch U-100] 16 units SQ DAILY 04/28/19 Allergies/Adverse Reactions: Penicillins Allergy (Severe, Verified 04/28/19 14:17) rash ciprofloxacin [From Cipro] Allergy (Verified 04/28/19 14:17) shellfish derived Allergy (Verified 04/28/19 14:17) Swelling of tongue oxycodone [From Percocet] Adverse Reaction (Verified 04/28/19 14:17) Review of Systems Constitutional: PRESENT: fatigue, weakness. ABSENT: anorexia, chills, fever(s), headache(s), night sweats Ears: ABSENT: hearing changes Nose, Mouth, and Throat: ABSENT: mouth pain, sore throat Cardiovascular: ABSENT: chest pain, dyspnea on exertion, edema, orthropnea, palpitations Respiratory: ABSENT: dyspnea, hemoptysis Gastrointestinal: ABSENT: abdominal pain, coffee ground emesis, dysphagia, heartburn, nausea, vomiting Genitourinary: ABSENT: dysuria, hematuria Integumentary: ABSENT: diaphoresis, lesions Neurological: PRESENT: abnormal speech - She had some slurring yesterday but not anymore today she says., numbness. ABSENT: abnormal movements, confusion, convulsions, dizziness, focal weakness, paresthesias Psychiatric: ABSENT: anxiety Hematologic/Lymphatic: ABSENT: easy bruising, lymphadenopathy Physical Exam Vital Signs: Temp Pulse Resp BP Pulse Ox 98.0 F 62 17 150/61 H 95 05/24/19 13:17 05/24/19 13:17 05/24/19 13:17 05/24/19 13:17 05/24/19 13:17 Intake & Output 05/23/19 05/24/19 05/25/19 06:59 06:59 06:59 Intake Total 24 Balance 24 Weight 72.5 kg General appearance: PRESENT: no acute distress Eye exam: PRESENT: EOMI, PERRLA. ABSENT: scleral icterus Ear exam: PRESENT: normal external ear exam Mouth exam: PRESENT: moist, neck supple Neck exam: ABSENT: lymphadenopathy, meningismus, tenderness, thyromegaly, tracheal deviation Respiratory exam: PRESENT: clear to auscultation carlos. ABSENT: crackles GI/Abdominal exam: PRESENT: normal bowel sounds, soft. ABSENT: organomegaly, tenderness Extremities exam: ABSENT: pedal edema Neurological exam: PRESENT: alert, awake, oriented to person, oriented to place, oriented to time, oriented to situation Psychiatric exam: PRESENT: appropriate affect Skin exam: ABSENT: erythema, mottled, petechiae Results Laboratory Results: 05/24/19 09:16 05/24/19 14:43 05/24/19 05/24/19 05/24/19 09:16 09:16 14:43 WBC 8.7 RBC 3.38 L Hgb 10.5 L Hct 33.0 L MCV 98 H MCH 31.0 MCHC 31.7 L RDW 15.3 H Plt Count 274 Seg Neutrophils % 82.0 H Sodium 124.6 L Potassium 4.8 Chloride 86 L Carbon Dioxide 23 Anion Gap 16 BUN 41 H Creatinine 5.81 H Est GFR ( Amer) 9 L Glucose 877 H* 424 H* Calcium 8.4 Total Bilirubin 0.9 AST 20 Alkaline Phosphatase 276 H Total Protein 7.7 Albumin 4.0 05/24/19 05/24/19 09:16 09:16 Creatine Kinase 75 CK-MB (CK-2) 2.03 Troponin I 0.039 Impressions: Chest X-Ray 05/24/19 08:44 IMPRESSION: Mild fluid overload or congestive failure Head CT 05/24/19 08:44 IMPRESSION: NORMAL BRAIN CT WITHOUT CONTRAST. EVIDENCE OF ACUTE STROKE: NO. Assessment & Plan - Diagnosis (1) Hyperglycemia Plan: Patient has a long-standing history of poor compliance with diabetic diet and control. This is nothing new unfortunately for her. No evidences to indicate ketoacidosis but that could be an element of nonketotic hyperosmolar state. Continue with IV fluids while she is undergoing dialysis. However we need to balance her fluid status with fluid removal. Advised the need for proper diet and blood sugar control with the patient. (2) Hypertensive urgency Is this a current diagnosis for this admission?: Yes Plan: Her initial admission blood pressure was 200+ systolic. Now it is in the 150- 160 range. Continue on current plans. (3) Hyponatremia Is this a current diagnosis for this admission?: Yes Plan: Element of pseudohyponatremia in the face of very high blood sugars. Monitor. Continue with fluids (4) Diabetes mellitus type 2 in nonobese Plan: Advised the need for better blood sugar control in this unfortunate patient who does not understand the implications and the consequences of these. (5) End stage renal failure on dialysis Is this a current diagnosis for this admission?: Yes Plan: Currently undergoing dialysis. Will remove approximately a liter. Vital signs are stable as blood pressures improved. Dialysis is being supervised to ensure safe and smooth procedure. Dialysis orders were reviewed with the treating dialysis needs nurse. (6) Hypertension Qualifiers: Plan: Better controlled. See response to dialysis. (7) CVA (cerebral vascular accident) Plan: TIA versus focal deficit. Management as per hospitalist.
--- NOTE | 2019-05-24 19:14 | RADIOLOGY REPORT (SQ) ---
EXAM DESCRIPTION: MRI HEAD WITHOUT COMPLETED DATE/TIME: 05/24/2019 7:00 pm REASON FOR STUDY: tia COMPARISON: None. TECHNIQUE: Multiplanar imaging includes non-contrasted T1, T2, FLAIR, and Diffusion with ADC map seq uences. Images stored on PACS. LIMITATIONS: None. FINDINGS: ANATOMY: No anomalies. Normal vascular flow voids. Pituitary fossa normal. CSF SPACES: Normal in size and contour. No hemorrhage. CEREBRUM: A few high-signal intensity lesions scattered throughout the white matter on FLAIR imaging with distribution suggesting chronic micro-vascular ischemic change. Sulci and gyri normal in size a nd contour. No evidence of hemorrhage, mass or extraaxial fluid collection. POSTERIOR FOSSA: No signal alteration. No hemorrhage. No edema, masses or mass effect. Internal misa tory canals, cerebello-pontine angles, mastoids normal. DIFFUSION: Negative for acute or sub-acute infarction. ORBITS: No masses. Globes normal. PARANASAL SINUSES: No fluid levels. Mucosa normal. OTHER: No other significant finding. IMPRESSION: MINIMAL MICROVASCULAR ISCHEMIC CHANGE. Negative for acute or sub-acute infarction.. EVIDENCE OF ACUTE STROKE: NO. TECHNICAL DOCUMENTATION: JOB ID: [id number] [employer]- All Rights Reserved Reading location - IP/workstation name: [email or web address]
[2019-05-24] MEDS: INSULIN REG, HUMAN 100 UNIT/ML 3 ML VIAL (PYX) SUBCUT SCH (21:38)
[2019-05-24] MEDS ORDERED: ATORVASTATIN CALCIUM 80 MG TABLET PO SCH (22:00)
[2019-05-25] MEDS: NYSTATIN 500000 UNIT/5 ML UDCUP PO SCH ×4 (02:06→14:18)
[2019-05-25] MEDS: HEPARIN SOD (PORCINE) 5,000 UNIT/ML 1 ML VIAL SUBCUT SCH ×2 (05:32→14:18)
[2019-05-25 05:53] LABS: HEMATOCRIT 28.9 % (36.0-47.0); HEMOGLOBIN 9.7 g/dL (12.0-15.5); MEAN CORPUSCULAR HGB CONC 33.7 g/dL (32.0-36.0); PLATELET COUNT 248 10^3/uL (150-450); RED BLOOD COUNT 3.14 10^6/uL (3.72-5.28); RED CELL DISTRIBUTION WIDTH 14.3 % (11.5-14.0); WHITE BLOOD COUNT 9.2 10^3/uL (4.0-10.5)
[2019-05-25 06:08] LABS: MEAN CORPUSCULAR VOLUME 92 fl (80-97)
[2019-05-25 06:14] LABS: ANION GAP 12 (5-19); BLOOD UREA NITROGEN 24 mg/dL (7-20); CALCIUM 8.1 mg/dL (8.4-10.2); CARBON DIOXIDE 27 mmol/L (22-30); CHLORIDE 96 mmol/L (98-107); CHOLESTEROL 105.65 mg/dL (0-200); GLUCOSE 307 mg/dL (75-110); TRIGLYCERIDES 90 mg/dL (<150)
[2019-05-25 06:25] LABS: DIRECT LDL 59 mg/dL (<100)
[2019-05-25 06:35] LABS: POTASSIUM 3.6 mmol/L (3.6-5.0)
[2019-05-25] MEDS: INSULIN REG, HUMAN 100 UNIT/ML 3 ML VIAL (PYX) SUBCUT SCH ×2 (07:57→11:47)
--- NOTE | 2019-05-25 09:42 | EKG REPORT ---
SEVERITY:- ABNORMAL ECG - SINUS RHYTHM LEFT ATRIAL ABNORMALITY PROBABLE LEFT VENTRICULAR HYPERTROPHY BORDERLINE PROLONGED QT INTERVAL : Confirmed by: Deng Holt 25-May-2019 09:41:56
[2019-05-25 12:25] VITALS: BP 176/57
--- NOTE | 2019-05-25 17:28 | RADIOLOGY REPORT (SQ) ---
EXAM DESCRIPTION: CAROTID DOPPLER COMPLETED DATE/TIME: 05/25/2019 3:25 pm REASON FOR STUDY: tia COMPARISON: None. TECHNIQUE: Grayscale ultrasound, Doppler velocity and spectra, and color Doppler images acquired of the extra-cranial carotid and vertebral arteries. Images stored on PACS. LIMITATIONS: None. FINDINGS: RIGHT CAROTID CCA Velocities: Within normal limits. ICA Velocities Peak systolic 91 cm/s. End diastolic 20 cm/s. Proximal ICA/CCA peak systolic ratio 1.3. There is some plaque in the carotid bulb and proximal ICA. LEFT CAROTID CCA Velocities: Within normal limits. ICA Velocities Peak systolic 121 cm/s. End diastolic 20 cm/s. Proximal ICA/CCA peak systolic ratio 1.5. There is shadowing plaque in the carotid bulb. VERTEBRAL ARTERIES: Antegrade flow. Normal waveforms. SUBCLAVIAN ARTERIES: No finding. OTHER: No other significant finding. IMPRESSION: NO HEMODYNAMICALLY SIGNIFICANT STENOSIS. COMMENT: Quality ID #[id number]: Velocity criteria are extrapolated from the diameter data as defined by t he Society of Radiologists in Ultrasound Consensus Conference. Radiology 2003: 229; 340-346. TECHNICAL DOCUMENTATION: JOB ID: [id number] [employer]- All Rights Reserved Reading location - IP/workstation name: [email or web address]
[2019-05-25] MEDS ORDERED: GABAPENTIN 100 MG CAPSULE PO SCH (22:00)
[2019-05-25] MEDS ORDERED: CARVEDILOL 12.5 MG TABLET PO SCH (22:00)
[2019-05-25] MEDS ORDERED: ASPIRIN 81 MG TABLET, CHEWABLE PO SCH (22:00)
[2019-05-25] MEDS ORDERED: AMLODIPINE BESYLATE 5 MG TABLET PO SCH (22:00)
--- NOTE | 2019-05-29 17:04 | PDOC DISCHARGE SUMMARY ---
Impression - Admit/DC Date/PCP Admission Date/Primary Care Provider: 05/24/19 10:41 IRENE SAMANIEGO Discharge Date: 05/25/19 - Discharge Diagnosis (1) Diabetes mellitus type 2 in nonobese Is this a current diagnosis for this admission?: Yes (2) End stage renal failure on dialysis Is this a current diagnosis for this admission?: Yes (3) Hypertensive urgency Is this a current diagnosis for this admission?: Yes (4) Hyponatremia Is this a current diagnosis for this admission?: Yes (5) Oral thrush Is this a current diagnosis for this admission?: Yes (6) Slurred speech Is this a current diagnosis for this admission?: Yes (7) Hyperglycemia Is this a current diagnosis for this admission?: Yes (8) TIA (transient ischemic attack) Is this a current diagnosis for this admission?: Yes - Additional Information Resuscitation Status: Full Code Discharge Diet: Diabetic, Other (Comments) Discharge Activity: Activity As Tolerated, Balance Activity w/Rest Referrals: IRENE SAMANIEGO MD [Primary Care Provider] - 06/07/19 3:15 pm PARESH SANDERS MD [NO LOCAL MD] - 06/14/19 3:15 pm Home Medications: Amlodipine Besylate [Norvasc 5 mg Tablet] 5 mg PO QHS 05/24/19 Aspirin [Children's Aspirin] 324 mg PO QHS 05/24/19 Atorvastatin Calcium [Lipitor 20 mg Tablet] 20 mg PO QHS 05/24/19 Carvedilol [Coreg 12.5 mg Tablet] 12.5 mg PO Q12 05/24/19 Clonidine [Catapres-Tts 3 (0.3 mg/24 Hr) Transderm Patch] 1 patch TD ROWLAND@1000 05/24/19 Ferric Citrate [Auryxia] 630 mg PO TID 05/24/19 Gabapentin [Neurontin 100 mg Capsule] 200 mg PO BID 05/24/19 Insulin Aspart [Novolog] 9 unit SQ AC 05/24/19 Insulin Degludec [Tresiba] 20 unit SQ QPM 05/24/19 Varenicline Tartrate [Chantix 1 mg Tablet] 1 mg PO BID 05/24/19 Acetaminophen [Tylenol 325 mg Tablet] 650 mg PO Q8HP PRN tablet 05/25/19 History of Present Illiness History of Present Illness: Per H&P by Zane March NP: SAMIA HEALY is a 59 year old female who presented to the emergency department with stating that she just feeling bad. Patient states she woke around 3:30 PM yesterday with some slurred speech denied any and all headache, neck pain, chest pain, palpitations, abdominal pain, nausea, vomiting, fever, diarrhea or any other symptoms. Patient reports that one month ago she had a TIA in the left carotid artery that was occluded. Patient is a dialysis patient with dialysis on Friday. Patient was post follow-up with the vascular surgeon on outpatient basis which he has not done at this time. Patient does have a strong facial tic that is persistent. She had no treatment prior to arrival no known aggravating factors. Hospital Course Hospital Course: The patient was admitted to [facility] on continuous cardiac telemetry for TIA work-up secondary to facial tach and slurred speech. She remained in normal sinus rhythm throughout her admission. Head CT was benign, chronic microvascular ischemic changes but was negative for acute CVA, carotid Doppler was negative for hemodynamically significant stenosis. Lipid panel was acceptable, however, the patient's hemoglobin A1c was found to be greater than 14%. The patient did have the opportunity meet with the registered dietitian and the childbirth educator prior to discharge. Nephrology was consulted; patient did receive dialysis. At time of discharge, the patient reported that her symptoms had completely resolved, she is maintaining oxygen saturations on room air, was tolerating a consistent carb/dialysis diet, and requesting to be discharged home. She is advised to follow-up with her primary care provider within 1 week, and to keep her normal dialysis schedule. The patient advises that during her previous admission she was instructed that she needed to follow-up with a an endovascular surgeon to have carotid obstructions. At the time of her discharge, the carotid Doppler report was still pending concern arrangements were made for the patient to have an brenda ointment with Dr. Sanders on June 14. Following discharge carotid Doppler resulted negative for hemodynamically significant stenosis. The patient was instructed to take her medications as prescribed and strongly encouraged to improve her dietary medication her uncontrolled insulin-dependent diabetes mellitus. She is instructed to return to the emergency department as needed with Physical Exam Vital Signs: Temp Pulse Resp BP Pulse Ox 98.4 F 70 17 176/57 H 98 05/25/19 15:24 05/25/19 15:24 05/25/19 15:24 05/25/19 12:00 05/25/19 15:24 General appearance: PRESENT: no acute distress, well-developed, well-nourished Head exam: PRESENT: atraumatic, normocephalic Eye exam: PRESENT: conjunctiva pink, EOMI, PERRLA. ABSENT: scleral icterus Mouth exam: PRESENT: moist, tongue midline Neck exam: ABSENT: carotid bruit, JVD, lymphadenopathy, thyromegaly Respiratory exam: PRESENT: clear to auscultation carlos, symmetrical, unlabored. ABSENT: rales, rhonchi, wheezes Cardiovascular exam: PRESENT: RRR, +S1, +S2. ABSENT: diastolic murmur, rubs, systolic murmur Pulses: PRESENT: normal dorsalis pedis pul Vascular exam: PRESENT: normal capillary refill Extremities exam: PRESENT: full ROM. ABSENT: calf tenderness, clubbing, pedal edema Neurological exam: PRESENT: alert, awake, oriented to person, oriented to place, oriented to time, oriented to situation, CN II-XII grossly intact. ABSENT: motor sensory deficit Psychiatric exam: PRESENT: appropriate affect, normal mood. ABSENT: homicidal ideation, suicidal ideation Skin exam: PRESENT: dry, intact, warm. ABSENT: cyanosis, rash Results Laboratory Results: WBC 9.2 10^3/uL (4.0-10.5) 05/25/19 04:43 RBC 3.14 10^6/uL (3.72-5.28) L 05/25/19 04:43 Hgb 9.7 g/dL (12.0-15.5) L 05/25/19 04:43 Hct 28.9 % (36.0-47.0) L 05/25/19 04:43 MCV 92 fl (80-97) D 05/25/19 04:43 MCH 31.0 pg (27.0-33.4) 05/25/19 04:43 MCHC 33.7 g/dL (32.0-36.0) 05/25/19 04:43 RDW 14.3 % (11.5-14.0) H 05/25/19 04:43 Plt Count 248 10^3/uL (150-450) 05/25/19 04:43 Lymph % (Auto) 8.8 % (13-45) L 05/24/19 09:16 Drew % (Auto) 6.6 % (3-13) 05/24/19 09:16 Eos % (Auto) 1.6 % (0-6) 05/24/19 09:16 Baso % (Auto) 1.0 % (0-2) 05/24/19 09:16 Absolute Neuts (auto) 7.2 10^3/uL (1.7-8.2) 05/24/19 09:16 Absolute Lymphs (auto) 0.8 10^3/uL (0.5-4.7) 05/24/19 09:16 Absolute Monos (auto) 0.6 10^3/uL (0.1-1.4) 05/24/19 09:16 Absolute Eos (auto) 0.1 10^3/uL (0.0-0.6) 05/24/19 09:16 Absolute Basos (auto) 0.1 10^3/uL (0.0-0.2) 05/24/19 09:16 Seg Neutrophils % 82.0 % (42-78) H 05/24/19 09:16 PT 15.3 SEC (11.4-15.4) 05/24/19 09:16 INR 1.20 05/24/19 09:16 APTT 29.1 SEC (23.5-35.8) 05/24/19 09:16 Sodium 135.1 mmol/L (137-145) L 05/25/19 04:43 Potassium 3.6 mmol/L (3.6-5.0) D 05/25/19 04:43 Chloride 96 mmol/L (98-107) L 05/25/19 04:43 Carbon Dioxide 27 mmol/L (22-30) 05/25/19 04:43 Anion Gap 12 (5-19) 05/25/19 04:43 BUN 24 mg/dL (7-20) H 05/25/19 04:43 Creatinine 3.76 mg/dL (0.52-1.25) H 05/25/19 04:43 Est GFR ( Amer) 15 (>60) L 05/25/19 04:43 Est GFR (MDRD) Non-Af 12 (>60) L 05/25/19 04:43 Glucose 307 mg/dL (75-110) H 05/25/19 04:43 POC Glucose 299 mg/dL (70-110) H 05/25/19 11:37 Hemoglobin A1c % > 14.0 % (4.7-6.0) H 05/25/19 04:43 Calcium 8.1 mg/dL (8.4-10.2) L 05/25/19 04:43 Total Bilirubin 0.9 mg/dL (0.2-1.3) 05/24/19 09:16 Direct Bilirubin 0.5 mg/dL (0.0-0.4) H 05/24/19 09:16 Neonat Total Bilirubin Not Reportable 05/24/19 09:16 Neonat Direct Bilirubin Not Reportable 05/24/19 09:16 Neonat Indirect Bili Not Reportable 05/24/19 09:16 AST 20 U/L (14-36) 05/24/19 09:16 ALT 20 U/L (<35) 05/24/19 09:16 Alkaline Phosphatase 276 U/L (38-126) H 05/24/19 09:16 Creatine Kinase 75 U/L (30-135) 05/24/19 09:16 CK-MB (CK-2) 2.03 ng/mL (<4.55) 05/24/19 09:16 Troponin I 0.039 ng/mL 05/24/19 09:16 Total Protein 7.7 g/dL (6.3-8.2) 05/24/19 09:16 Albumin 4.0 g/dL (3.5-5.0) 05/24/19 09:16 Triglycerides 90 mg/dL (<150) 05/25/19 04:43 Cholesterol 105.65 mg/dL (0-200) 05/25/19 04:43 LDL Cholesterol Direct 59 mg/dL (<100) 05/25/19 04:43 VLDL Cholesterol 18.0 mg/dL (10-31) 05/25/19 04:43 HDL Cholesterol 28 mg/dL (>40) L 05/25/19 04:43 05/24/19 09:16 CK-MB (CK-2) 2.03 Troponin I 0.039 Impressions: Head MRI 05/24/19 00:00 IMPRESSION: MINIMAL MICROVASCULAR ISCHEMIC CHANGE. Negative for acute or sub- acute infarction.. EVIDENCE OF ACUTE STROKE: NO. Chest X-Ray 05/24/19 08:44 IMPRESSION: Mild fluid overload or congestive failure Head CT 05/24/19 08:44 IMPRESSION: NORMAL BRAIN CT WITHOUT CONTRAST. EVIDENCE OF ACUTE STROKE: NO. Carotid Doppler Study 05/24/19 10:28 IMPRESSION: NO HEMODYNAMICALLY SIGNIFICANT STENOSIS. Plan Plan of Treatment: The patient is discharged home with self-care. She is advised to follow-up with her primary care provider within 1 week. She is instructed to continue her normal dialysis schedule. Patient reports that she was previously told that she needed follow-up with an endovascular surgeon but was unable to locate one; she has been provided an appointment with Dr. Schulte again., However, after the patient's discharge, her carotid Doppler formalize report resulted negative for hemodynamically significant stenosis. She is advised to eat a diabetic/dialysis diet. Continue her medications as prescribed. Improve glucose control; keep a log of all blood sugars and bring this to her follow-up appointments. She is encouraged to return to the emergency department as needed for concerning symptoms. Time Spent: Greater than 30 Minutes Stroke Is this a Stroke Patient?: No Acute Heart Failure - Is this a Heart Failure Patient?: No
[2019-05-30] MEDS ORDERED: CLONIDINE 0.3 MG/24 HR PATCH.TDWK TD SCH (10:00)
== END 2019-05-25 16:28 | disposition home or self-care (01) | DRG 682 ==
LOC: ER 08:42 → EH 10:41 → 3N 13:12
PROVIDERS: ADMIT Internal Medicine; ATTEND Internal Medicine
PROC: 5A1D70Z Performance of Urinary Filtration, Intermittent, Less than 6 Hours Per Day (ICD-10-PCS; principal; 2019-05-24)
DX: I12.0 Hypertensive chronic kidney disease with stage 5 chronic kidney disease or end stage renal disease (principal); N18.6 End stage renal disease; G45.9 Transient cerebral ischemic attack, unspecified; E87.1 Hypo-osmolality and hyponatremia; B37.0 Candidal stomatitis; N25.81 Secondary hyperparathyroidism of renal origin; D63.1 Anemia in chronic kidney disease; E11.22 Type 2 diabetes mellitus with diabetic chronic kidney disease; Z99.2 Dependence on renal dialysis; I16.0 Hypertensive urgency; R47.81 Slurred speech; E11.65 Type 2 diabetes mellitus with hyperglycemia; F95.9 Tic disorder, unspecified; R20.0 Anesthesia of skin; R29.701 NIHSS score 1; Z79.82 Long term (current) use of aspirin; Z79.4 Long term (current) use of insulin; Z86.73 Personal history of transient ischemic attack (TIA), and cerebral infarction without residual deficits; Z91.11 Patient's noncompliance with dietary regimen; Z91.14 Patient's other noncompliance with medication regimen; Z88.6 Allergy status to analgesic agent; Z88.1 Allergy status to other antibiotic agents; Z88.0 Allergy status to penicillin; Z91.013 Allergy to seafood; Z83.3 Family history of diabetes mellitus; Z82.49 Family history of ischemic heart disease and other diseases of the circulatory system
CPT/HCPCS: 36415; 70450; 70551; 71045; 80048; 80053; 80061; 82550; 82553; 82947; 82962; 83036; 84484; 85025; 85027; 85610; 85730; 93005; 93010; 93306; 93880; 99291; J0360; J1644; J1815; J3490; J7030; J7050

== ENCOUNTER 2019-06-02 10:40 | Inpatient (IN) | payer MEDICARE, MEDICAID ==
[2019-06-02] MEDS ORDERED: CLONIDINE HCL 0.1 MG TABLET PO ONE (11:14)
[2019-06-02] MEDS ORDERED: NICARDIPINE HCL RTU, ISO-OS 20 MG/200 ML RTUINJ IV PRN (11:17)
--- NOTE | 2019-06-02 11:24 | ER Document Report ---
ED NIH Stroke Scale - NIH Stroke Scale When completed:: Protocol *: 1. NIH scale should be completed with appropriate accompanying assessment tools. *: 2. The NIH should reflect what the patient is capable of doing and should not be coached by the clinician. 1a. Level of Consciousness: 0=Alert;keenly responsive -: 1=Drowsy -: 2=Obtunded -: 3=Coma/unresponsive or reflex to noxious stimuli. 1a. Responses: 0 1b. Orientation Questions: a. What month is it? -: b. How old are you? -: 0=Answers both questions correctly. -: 1=Answers one question correctly or patient is intubated or has orotracheal trauma. -: 2=Answers neither question correctly. 1b. Responses: 0 1c. Response to commands: a. Open and close eyes? -: b. Sheriff'S Officer and release hand? -: Credit is given despite weakness. Demonstration of task is permitted. Substitute command if hands cannot be used. -: 0=Performs both tasks correctly -: 1=Performs one task correctly -: 2=Performs neither task correctly 1c. Responses: 0 2. Gaze: Establish eye contact and instruct patient to "Follow my finger" -: 0=Normal -: 1=Partial gaze palsy. Gaze is abnormal in one or both eyes, but where forced deviation or total gaze paresis is not present. -: 2=Forced deviation or total gaze paresis. 2. Responses: 0 3. Visual Cardenas: Sees fingers in all four quadrants. -: 0=No visual loss. -: 1=Partial hemianopsia. -: 2=Complete hemianopsia. -: 3=Bilateral hemianopsia (including Cortical blindness) 3. Responses: 0 4. Facial Movement: Instruct patient to: -: a. Show me your teeth -: b. Raise your eyebrows -: c. Close your eyes -: d. Smile -: 0=Normal symmetrical movement -: 1=Minor paralysis (flattened nasolabial fold, asymmetry on smiling). -: 2=Partial paralysis (total or near total paralysis of lower face). -: 3=Complete paralysis of upper and lower face 4. Responses: 1 5. Motor functions (left arm): Alternate sides and extend each arm with palms down (90 degrees if sitting or 45 degrees for supine). -: 0=No drift;limb holds for full 10 seconds. -: 1=Drift; limb holds but drifts down before full 10 seconds, but does not hit bed. -: 2=Some effort against gravity; limb cannot get to or maintain position. -: 3=No effort against gravity; limb falls. -: 4=No movement. -: UN=Amputation, joint fusion, explain in comments. 5. Responses (left arm): 0 5. Motor Functions (right arm): Alternate sides and extend each arm with palms down (90 degrees if sitting or 45 degrees for supine). -: 0=No drift;limb holds for full 10 seconds. -: 1=Drift; limb holds but drifts down before full 10 seconds, but does not hit bed. -: 2=Some effort against gravity; limb cannot get to or maintain position. -: 3=No effort against gravity; limb falls. -: 4=No movement. -: UN=Amputation, joint fusion, explain in comments. 5. Responses (right arm): 0 6. Motor Functions (left leg): With patient lying supine, alternate sides and extend each leg (30 degrees always while supine). -: 0=No drift, leg holds position for full 5 seconds -: 1=Drift; leg falls before full 5 seconds but does not hit bed. -: 2=Some effort against gravity, leg falls to bed but some effort against gravity. -: 3=No effort against gravity, leg falls to bed immediately. -: 4=No movement. -: UN=Amputation, joint fusion; explain in comments. 6. Responses (left leg): 0 6. Motor Functions (right leg): With patient lying supine, alternate sides and extend each leg (30 degrees always while supine). -: 0=No drift, leg holds position for full 5 seconds -: 1=Drift; leg falls before full 5 seconds but does not hit bed. -: 2=Some effort against gravity, leg falls to bed but some effort against gravity. -: 3=No effort against gravity, leg falls to bed immediately. -: 4=No movement. -: UN=Amputation, joint fusion; explain in comments. 6. Responses (right leg): 0 7. Limb Ataxia: With eyes open instruct patient to: -: a. "Touch your finger to your nose". -: b. "Touch your heel to your augustin" -: 0=Absent -: 1=Present in one limb. -: 2=Present in two limbs. -: UN=Amputation or joint fusion; explain in comments. 7. Responses: 0 8. Sensory: Test sensation using pinprick or noxious stimuli. Test as many body parts as possible. -: 0=Normal;no sensory loss -: 1=Mile to moderate sensory loss (patient feels pin prick but is less sharp on affected side). -: 2=Severe or total sensory loss. 8. Responses: 1 9. Best Language: Instruct patient to: -: a. "Describe what you see in this picture." -: b. "Name the items in this picture." -: c. "Read these sentences." -: 0=No aphasia, normal -: 1=Mild to moderate aphasia. -: 2=Severe aphasia -: 3=Mute, global aphasia, no usable speech or auditory comprehension. 9. Responses: 0 10. Articulation, Dysarthia: Instruct patient to: -: "Read these words" or "Repeat these words" -: 0=Normal -: 1=Mild to moderate; patient may slur some words but can be understood without difficulty. -: 2=Severe; patients speech so slurred as to be unintelligible in the absence of dysphasia. -: UN=Intubated or other physical barrier, explain in comments. 10. Responses: 1 11. Extinction or inattention: 0=No abnormality -: 1= Visual, tactile, auditory, spatial, or personal inattention or extinction to bilateral simulation in one or the sensory modalities. -: 2=Profound mago-inattention or mago-inattention to more than one modality; does not recognize own hand. 11. Responses: 0 Total Score: 3
[2019-06-02 11:29] LABS: APPEARANCE,URINE SLIGHTLY-CLOUDY; BILIRUBIN,URINE NEGATIVE (NEGATIVE); COLOR,URINE YELLOW; GLUCOSE, URINE >=500 mg/dL (NEGATIVE); INTERNATIONAL RATION (INR) 1.33; KETONES,URINE NEGATIVE (NEGATIVE); LEUKOCYTE ESTERASE,URINE NEGATIVE (NEGATIVE); NITRITE,URINE NEGATIVE (NEGATIVE); PROTEIN,URINE >=500 mg/dL (NEGATIVE); PROTHROMBIN TIME 16.6 SEC (11.4-15.4); UROBILINOGEN,URINE NEGATIVE mg/dL (<2.0)
--- NOTE | 2019-06-02 11:30 | RADIOLOGY REPORT (SQ) ---
EXAM DESCRIPTION: CT HEAD WITHOUT COMPLETED DATE/TIME: 06/02/2019 11:00 am REASON FOR STUDY: new onset slurred speech hx TIA X2 COMPARISON: 05/24/2019 TECHNIQUE: Axial images acquired through the brain without intravenous contrast. Images reviewed wi th bone, brain and subdural windows. Additional sagittal and coronal reconstructions were generated. Images stored on PACS. All CT scanners at this facility use dose modulation, iterative reconstruction, and/or weight based d osing when appropriate to reduce radiation dose to as low as reasonably achievable (ALARA). [facility]: Dose Right [facility]: CareDose [facility]: Dose Right [facility]: Teradose 4D [facility]: [employer] RADIATION DOSE: CT Rad equipment meets quality standard of care and radiation dose reduction techniq ues were employed. CTDIvol: 53.2 mGy. DLP: 991 mGy-cm. mGy. LIMITATIONS: None. FINDINGS: VENTRICLES: Normal size and contour. CEREBRUM: No masses. No hemorrhage. No midline shift. No evidence for acute infarction. Normal gra y/white matter differentiation. No areas of low density in the white matter. CEREBELLUM: No masses. No hemorrhage. No alteration of density. No evidence for acute infarction. EXTRAAXIAL SPACES: No fluid collections. No masses. ORBITS AND GLOBE: No intra- or extraconal masses. Normal contour of globe without masses. CALVARIUM: No fracture. PARANASAL SINUSES: No fluid or mucosal thickening. SOFT TISSUES: No mass or hematoma. OTHER: No other significant finding. IMPRESSION: NORMAL BRAIN CT WITHOUT CONTRAST. EVIDENCE OF ACUTE STROKE: NO. COMMENT: Pertinent positive or negative findings of the imaging study reported as a CRITICAL EXAM annamarie PECK NP at11:24 on 06/02/2019. Category of Critical Exam: Stroke alert Quality ID # [id number]: Final reports with documentation of one or more dose reduction techniques (e.g., Au tomated exposure control, adjustment of the mA and/or kV according to patient size, use of iterative reconstruction technique) TECHNICAL DOCUMENTATION: JOB ID: [id number] [employer]- All Rights Reserved Reading location - IP/workstation name: [email or web address]
--- NOTE | 2019-06-02 11:30 | ER Document Report ---
ED [employer]te[employer]/Exc Criteria - Date/Time patient last known well: Date/Time: 1100am 06/02/19 - Inclusion Criteria: 1: Patient presented to ED within 3 hours of acute ischemic stroke symptom onset? -: Yes 2: Did baseline CT exclude intracranial hemorrhage and/or other risk factors? -: Yes 3: Is the age of the patient 18 years of age or greater? -: Yes : If any of the above questions are answered "NO" then stop, patient is not a candidate for Alteplase, : If all of the above questions are answered "YES" then continue with Exclusion Criteria. - Exclusion Criteria: 1: Is there evidence of intracranial hemorrhage on baseline CT? -: No 2: Is there suspicion of subarachnoid hemorrhage (even if CT negative)? -: No 3: Is there a history of serious head trauma, recent previous stroke or RI within 3 months? -: No 4: Does the patient have a clinical presentation consistent with RI or post-RI pericarditis? -: No 5: Is there history of intracranial hemorrhage? -: No 6: On repeated measurement is Systolic BP greater than 185mmHg or Diastolic BP greater that 110 mmHg and is aggressive treatment needed to reduce blood pressure to these limits (e.g. constant infusion of an anti-hypertensive)? -: Yes 7: Did the patient awake with stroke symptoms? -: No 8: Has the patient had a lumbar puncture or an arterial puncture at a non- compressile site within 7 days? -: No 9: With in the last 14 days did the patient have surgery or major trauma? -: No 10: Is the patient or less than 2 weeks? -: No 11: Was there any active bleeding or acute trauma? -: No 12: Does the patient have intracranial neoplasm, arteriovenous malformation or aneurysm? -: No 13: Does the patient have abnormal glucose (less than 50 or greater than 400mg/dl)? Record glucose in Comment. -: Yes 14: Patient has rapidly improving symptoms at the time Alteplase is to be Administered. -: Yes 15: Does the patient have any risks for bleeding, including but not limited to: a.: Current use of Coumadin with PT greater than 15 seconds or INR greater than 1.7. b.: Current use of Pradaxa (Dabigatran). c.: Heparin administereed within the past 48 hours and PTT elevated. d.: Platelet count less than 100,000/mm. e.: Major surgery or serious trauma within 14 days. f.: Gastrointestinal or gynecological urinary bleeding within 14 days. g.: Myocardial Infarction (RI) within 3 months. -: No : If the answer to any of the above questions is "YES" then stop, the patient is not a candidate for Alteplase. : If the answer to all of the above questions is "NO" then the patient may be eligible for the Administration of Alteplase. : If the patient is noted to have seizure activity at onset of Stroke symptoms; Consult Neurologist for further evaluation. - The patient is: -: Included and is eligible to receive Alteplase. *Initiate bed placement at higher level of care* --: No Reviewed risks & benefits of thrombolytic therapy: I have reviewed the risks and benefits of thrombolytic therapy with the patient and/or his/her family. Yes -: Excluded and not eligible to receive Alteplase for the above exclusions. --: Yes -: Excluded and not eligible to receive Alteplase for other reasons (specify in comments): - Diagnosis of TIA: -: Patient presented with transient symptoms that are now resolved and no other neurologic findings are currently present. List symptoms in comments. -: Patient is NOT a candidate for tPA. -: Yes -: ____(put name in comment) has been consulted for admission and continued evaluation of risk factor assessment. Comment: mariah
--- NOTE | 2019-06-02 11:32 | RADIOLOGY REPORT (SQ) ---
EXAM DESCRIPTION: CHEST SINGLE VIEW COMPLETED DATE/TIME: 06/02/2019 10:58 am REASON FOR STUDY: new onset slurred speech hx TIA X2 COMPARISON: 05/24/2019 EXAM PARAMETERS: NUMBER OF VIEWS: One view. TECHNIQUE: Single frontal radiographic view of the chest acquired. RADIATION DOSE: NA LIMITATIONS: None. FINDINGS: LUNGS AND PLEURA: Minimal pulmonary edema. MEDIASTINUM AND HILAR STRUCTURES: No masses. Contour normal. HEART AND VASCULAR STRUCTURES: Borderline heart size. BONES: No acute findings. HARDWARE: Left subclavian/ axillary endograft. OTHER: No other significant finding. IMPRESSION: Borderline heart size with minimal pulmonary edema. TECHNICAL DOCUMENTATION: JOB ID: [id number] [employer]- All Rights Reserved Reading location - IP/workstation name: [email or web address]
--- NOTE | 2019-06-02 11:44 | ER Document Report ---
ED Medical Screen (RME) - General Chief Complaint: S/S of Possible Stroke Stated Complaint: POSSIBLE TIA Time Seen by Provider: 06/02/19 10:45 Primary Care Provider: IRENE SAMANIEGO MD [Primary Care Provider] - Follow up as needed Mode of Arrival: Wheelchair Information source: Patient Notes: This 59-year-old female with history of TIA presents emergency department with left-sided facial drooping slurred speech that started at approximately 9:00 this morning. Patient reports she takes an aspirin a day. Denies trauma. I have greeted and performed a rapid initial assessment of this patient. A comprehensive ED assessment and evaluation of the patient, analysis of test results and completion of the medical decision making process will be conducted by additional ED providers. Dictation of this chart was performed using voice recognition software; therefore, there may be some unintended grammatical errors. TRAVEL OUTSIDE OF THE [place] IN LAST 30 DAYS: No - Related Data Allergies/Adverse Reactions: Penicillins Allergy (Severe, Verified 06/02/19 10:49) rash ciprofloxacin [From Cipro] Allergy (Verified 06/02/19 10:49) shellfish derived Allergy (Verified 06/02/19 10:49) Swelling of tongue oxycodone [From Percocet] Adverse Reaction (Verified 06/02/19 10:49) Past Medical History - Social History Frequency of alcohol use: None - Past Medical History Cardiac Medical History: Reports: Hx Hypertension Denies: Hx Coronary Artery Disease, Hx Heart Attack Pulmonary Medical History: Reports: Hx Pneumonia Denies: Hx Asthma, Hx Bronchitis, Hx COPD Neurological Medical History: Denies: Hx Cerebrovascular Accident, Hx Seizures Endocrine Medical History: Reports: Hx Diabetes Mellitus Type 1, Hx Diabetes Mellitus Type 2. Denies: Hx Hyperthyroidism, Hx Hypothyroidism Renal/ Medical History: Reports: Hx End Stage Renal Disease, Hx Hemodialysis. Denies: Hx Peritoneal Dialysis GI Medical History: Denies: Hx Cirrhosis, Hx Crohn's Disease, Hx Hepatitis, Hx Ulcerative Colitis Musculoskeltal Medical History: Denies Hx Arthritis, Denies Hx Fibromyalgia Skin Medical History: Denies Hx Eczema, Denies Hx Psoriasis Psychiatric Medical History: Denies: Hx Depression Infectious Medical History: Denies: Hx Hepatitis Past Surgical History: Reports: Hx Appendectomy, Hx Cholecystectomy, Hx Orthopedic Surgery - feet, Hx Tubal Ligation, Hx Vascular Surgery - fistula upper arm, Other - Hemodialysis vascular access left upper extremity - Immunizations Hx Diphtheria, Pertussis, Tetanus Vaccination: No Course - Laboratory Result Diagrams: 06/02/19 11:14 06/02/19 11:14 Laboratory results interpreted by me: 06/02/19 06/02/19 11:14 11:14 PT 16.6 H Urine Protein >=500 H Urine Glucose (UA) >=500 H Urine Blood SMALL H Doctor's Discharge - Discharge Referrals: IRENE SAMANIEGO MD [Primary Care Provider] - Follow up as needed
[2019-06-02 11:50] LABS: ALBUMIN 3.9 g/dL (3.5-5.0); ALKALINE PHOSPHATASE 294 U/L (38-126); ANION GAP 18 (5-19); ASPARTATE AMINO TRANSFERASE 26 U/L (14-36); BILIRUBIN,DIRECT 0.6 mg/dL (0.0-0.4); BILIRUBIN,TOTAL 0.8 mg/dL (0.2-1.3); BLOOD UREA NITROGEN 24 mg/dL (7-20); CALCIUM 7.9 mg/dL (8.4-10.2); CARBON DIOXIDE 23 mmol/L (22-30); CHLORIDE 80 mmol/L (98-107); POTASSIUM 5.1 mmol/L (3.6-5.0); TOTAL PROTEIN 7.6 g/dL (6.3-8.2)
[2019-06-02 12:03] LABS: URINE AMPHETAMINES SCREEN NEGATIVE; URINE BARBITURATES SCREEN NEGATIVE; URINE BENZODIAZEPINES SCREEN NEGATIVE; URINE COCAINE SCREEN NEGATIVE; URINE MARIJUANA (THC) SCREEN NEGATIVE; URINE METHADONE SCREEN NEGATIVE; URINE PHENCYCLIDINE SCREEN NEGATIVE
[2019-06-02 12:38] LABS: GLUCOSE 1430 mg/dL (75-110)
[2019-06-02] MEDS ORDERED: NORMAL SALINE 100 ML with INSULIN REGULAR, HUMAN 100 UNIT IV PRN ×2 (12:47)
[2019-06-02 12:53] LABS: ABSOLUTE BASOPHILS # (AUTO) 0.1 10^3/uL (0.0-0.2); ABSOLUTE LYMPHOCYTES (AUTO) 0.7 10^3/uL (0.5-4.7); ABSOLUTE MONOCYTES (AUTO) 0.5 10^3/uL (0.1-1.4); ABSOLUTE NEUT (AUTO) 4.6 10^3/uL (1.7-8.2); BASOPHILS % (AUTO) 1.3 % (0-2); EOSINOPHILS % (AUTO) 0.7 % (0-6); HEMATOCRIT 34.4 % (36.0-47.0); HEMOGLOBIN 9.7 g/dL (12.0-15.5); LYMPHOCYTES % (AUTO) 11.7 % (13-45); MEAN CORPUSCULAR HEMOGLOBIN 30.5 pg (27.0-33.4); MEAN CORPUSCULAR HGB CONC 28.3 g/dL (32.0-36.0); MONOCYTES % (AUTO) 8.2 % (3-13); PLATELET COUNT 235 10^3/uL (150-450); RED BLOOD COUNT 3.19 10^6/uL (3.72-5.28); RED CELL DISTRIBUTION WIDTH 16.1 % (11.5-14.0); SEGMENTED NEUTROPHILS % (AUTO) 78.1 % (42-78); TOTAL CELLS COUNTED % (AUTO) 100 %; WHITE BLOOD COUNT 5.9 10^3/uL (4.0-10.5)
[2019-06-02 13:04] LABS: MEAN CORPUSCULAR VOLUME 108 fl (80-97)
[2019-06-02] MEDS ORDERED: INSULIN REG, HUMAN 100 UNIT/ML 3 ML VIAL (PYX) ONE (13:58)
--- NOTE | 2019-06-02 14:21 | ER Document Report ---
ED Dizziness/Weakness - General Chief Complaint: S/S of Possible Stroke Stated Complaint: POSSIBLE TIA Time Seen by Provider: 06/02/19 10:45 Primary Care Provider: IRENE SAMANIEGO MD [Primary Care Provider] - Follow up as needed Mode of Arrival: Wheelchair Information source: Patient TRAVEL OUTSIDE OF THE [place] IN LAST 30 DAYS: No - HPI Notes: Patient was sent from her primary care doctor's office secondary to sudden onset of left facial droop and trouble speaking. She states that she had similar symptoms last week and was diagnosed with a TIA. She states today she was at her primary care doctor's office for routine follow-up when she suddenly had trouble talking and felt that the left side of her face was weak as well as she was having some numbness on the left side of her face. The symptoms have been constant. Nothing made it better or worse. No known radiation symptoms. They are moderate to severe. Patient denies any trouble with vision. No trouble swallowing. She denies any trouble with gait or walking. No pain. No vomiting or diarrhea. - Related Data Allergies/Adverse Reactions: Penicillins Allergy (Severe, Verified 06/02/19 10:49) rash ciprofloxacin [From Cipro] Allergy (Verified 06/02/19 10:49) shellfish derived Allergy (Verified 06/02/19 10:49) Swelling of tongue oxycodone [From Percocet] Adverse Reaction (Verified 06/02/19 10:49) Past Medical History - General Information source: Patient - Social History Smoking Status: Never Smoker Frequency of alcohol use: None Drug Abuse: None Family History: DM, Hypertension Patient has suicidal ideation: No Patient has homicidal ideation: No - Past Medical History Cardiac Medical History: Reports: Hx Hypertension Denies: Hx Coronary Artery Disease, Hx Heart Attack Pulmonary Medical History: Reports: Hx Pneumonia Denies: Hx Asthma, Hx Bronchitis, Hx COPD Neurological Medical History: Denies: Hx Cerebrovascular Accident, Hx Seizures Endocrine Medical History: Reports: Hx Diabetes Mellitus Type 1, Hx Diabetes Mellitus Type 2. Denies: Hx Hyperthyroidism, Hx Hypothyroidism Renal/ Medical History: Reports: Hx End Stage Renal Disease, Hx Hemodialysis. Denies: Hx Peritoneal Dialysis GI Medical History: Denies: Hx Cirrhosis, Hx Crohn's Disease, Hx Hepatitis, Hx Ulcerative Colitis Musculoskeletal Medical History: Denies Hx Arthritis, Denies Hx Fibromyalgia Skin Medical History: Denies Hx Eczema, Denies Hx Psoriasis Psychiatric Medical History: Denies: Hx Depression Infectious Medical History: Denies: Hx Hepatitis Past Surgical History: Reports: Hx Appendectomy, Hx Cholecystectomy, Hx Orthopedic Surgery - feet, Hx Tubal Ligation, Hx Vascular Surgery - fistula upper arm, Other - Hemodialysis vascular access left upper extremity - Immunizations Hx Diphtheria, Pertussis, Tetanus Vaccination: No Hx Pneumococcal Vaccination: 07/21/16 Review of Systems - Review of Systems Constitutional: Malaise, Weakness. denies: Chills, Fever EENT: denies: Blurred vision, Double vision Cardiovascular: denies: Chest pain, Palpitations Respiratory: denies: Cough, Short of breath -: Yes All other systems reviewed and negative Physical Exam - Vital signs Vitals: Pulse Resp BP Pulse Ox 67 22 H 222/80 H 100 06/02/19 10:41 06/02/19 10:41 06/02/19 10:41 06/02/19 10:41 Interpretation: Normal - General General appearance: Appears well, Alert In distress: None - HEENT Head: Normocephalic, Atraumatic Eyes: Normal Pupils: PERRL - Respiratory Respiratory status: No respiratory distress Chest status: Nontender Breath sounds: Decreased air movement - Bilateral Chest palpation: Normal - Cardiovascular Rhythm: Regular Heart sounds: Normal auscultation Murmur: No - Abdominal Inspection: Normal Distension: No distension Bowel sounds: Normal Tenderness: Nontender Organomegaly: No organomegaly - Back Back: Normal, Nontender - Extremities General upper extremity: Normal inspection, Nontender, Normal color, Normal ROM, Normal temperature General lower extremity: Normal inspection, Nontender, Edema - 1+ bilaterally, Normal color, Normal ROM, Normal temperature, Normal weight bearing. No: Damien's sign - Neurological Neuro grossly intact: Yes Cognition: Normal Orientation: AAOx4 Nikita Coma Scale Eye Opening: Spontaneous [place] Coma Scale Verbal: Oriented [place] Coma Scale Motor: Obeys Commands [place] Coma Scale Total: 15 Speech: Dysarthria Cranial nerves: Facial palsy Cerebellar coordination: Normal Motor strength normal: LUE, RUE, LLE, RLE Additional motor exam normals: Equal human resource manager. No: Pronator drift Sensory: Normal - Psychological Associated symptoms: Normal affect, Normal mood - Skin Skin Temperature: Warm Skin Moisture: Dry Skin Color: Normal Course - Re-evaluation Re-evalutation: 06/02/19 14:18 Patient presents with sudden onset of left-sided facial weakness as well as trouble speaking. She is not a TPA candidate because of the uncontrolled high blood pressure as well as the uncontrolled hyperglycemia. Patient will be started on insulin drip. Patient was placed on Cardene and blood pressure has came down. Cardene is now been turned off as patient's blood pressure has gone below 180. Patient's dysarthria and left facial weakness are still present but improving. Her NIH scale score is 3. I did discuss the case with the patient's eyeglass lens cutter who states that the patient had a normal dialysis run yesterday and can be taking care of here at this hospital. I have also spoke to the assistant softball coach who felt that the patient was stable for a floor admission. - Vital Signs Vital signs: Temp Pulse Resp BP Pulse Ox 67 12 140/63 H 100 06/02/19 10:41 06/02/19 13:41 06/02/19 13:41 06/02/19 10:41 - Laboratory Result Diagrams: 06/02/19 12:13 06/02/19 11:14 Laboratory results interpreted by me: 06/02/19 06/02/19 06/02/19 11:03 11:14 11:14 RBC Hgb Hct MCV MCHC RDW Lymph % (Auto) Seg Neutrophils % PT 16.6 H Sodium 121.0 L Potassium 5.1 H Chloride 80 L BUN 24 H Creatinine 3.95 H Est GFR ( Amer) 14 L Est GFR (MDRD) Non-Af 12 L Glucose 1430 H* POC Glucose > 550 H* Calcium 7.9 L Direct Bilirubin 0.6 H Alkaline Phosphatase 294 H Urine Protein Urine Glucose (UA) Urine Blood 06/02/19 06/02/19 06/02/19 11:14 12:13 12:34 RBC 3.19 L Hgb 9.7 L Hct 34.4 L MCV 108 H D MCHC 28.3 L RDW 16.1 H Lymph % (Auto) 11.7 L Seg Neutrophils % 78.1 H PT Sodium Potassium Chloride BUN Creatinine Est GFR ( Amer) Est GFR (MDRD) Non-Af Glucose POC Glucose > 550 H* Calcium Direct Bilirubin Alkaline Phosphatase Urine Protein >=500 H Urine Glucose (UA) >=500 H Urine Blood SMALL H - Diagnostic Test Radiology reviewed: Image reviewed, Reports reviewed - EKG Interpretation by Me EKG shows normal: Sinus rhythm Rate: Normal - 70 Rhythm: NSR Voltage: Consistant with LVH Critical Care Note - Critical Care Note Total time excluding time spent on procedures (mins): 50 Comments: 50 minutes of critical care time were spent on this patient. This included multiple rechecks to manage the patient's elevated blood sugar, stroke symptoms, and persistent high blood pressure. This included reviewing images and laboratories. It included discussion with multiple consultants. Discharge - Discharge Clinical Impression: Acute hyperglycemia, Uncontrolled hypertension CVA (cerebral vascular accident) Qualifiers: CVA mechanism: unspecified Qualified Code(s): I63.9 - Cerebral infarction, unspecified Condition: Serious Disposition: ADMITTED INPATIENT Admitting Provider: Merritt (Hospitalist) Unit Admitted: IMCU Referrals: IRENE SAMANIEGO MD [Primary Care Provider] - Follow up as needed
[2019-06-02] MEDS ORDERED: GLUCAGON,HUMAN RECOMB 1 MG INJ IM PRN ×2 (14:42→17:23)
[2019-06-02] MEDS ORDERED: DEXTROSE 50%-WATER 25 GM/50 ML DISP.SYRIN IV PRN ×4 (14:42→17:23)
[2019-06-02] MEDS ORDERED: DEXTROSE 40% GEL 15 GM TUBE PO PRN ×4 (14:42→17:23)
[2019-06-02] MEDS ORDERED: HYDRALAZINE HCL INJ/PF 20 MG/1 ML SDV IV PRN (14:43)
[2019-06-02] MEDS ORDERED: NORMAL SALINE 1000 ML 1,000 ML IV PRN ×2 (14:47→14:51)
[2019-06-02] MEDS ORDERED: ACETAMINOPHEN 325 MG TABLET PO PRN (15:12)
[2019-06-02] MEDS ORDERED: OXYCODONE-ACETAMINOPHEN 5-325 MG TABLET PO PRN (15:12)
[2019-06-02] MEDS ORDERED: PROMETHAZINE HCL INJ 25 MG/1 ML VIAL IV PRN (15:12)
[2019-06-02] MEDS ORDERED: IPRATROPIUM/ALBUTEROL 0.5-2.5 MG/3 ML AMPUL NEB PRN (15:12)
[2019-06-02] MEDS ORDERED: TEMAZEPAM 7.5 MG CAPSULE PO PRN (15:12)
[2019-06-02] MEDS ORDERED: ONDANSETRON 4 MG TAB.RAPDIS PO PRN (15:12)
--- NOTE | 2019-06-02 15:12 | PDOC H&P ---
History of Present Illness Admission Date/PCP: 06/02/19 14:31 IRENE SAMANIEGO History of Present Illness: SAMIA HEALY is a 59 year old female past medical history of hypertension, diabetes, end-stage renal disease on hemodialysis, anemia of chronic disease, sent to ED by PCP after sudden onset left facial droop and dysarthria. Had a similar episode last week and was diagnosed with TIA. Stating that she went to PCP for routine checkup and suddenly felt left side of her face weak and numb on the left side. She is also complaining of feeling cold and thirsty with dry mouth and nauseous. Denies any shortness of breath, chest pain, abdominal pain, diarrhea or any constipation. Patient has history of frequent hospitalization for hypoglycemia/hyperglycemia coma and recently discharged on 05/29/2019 after being admitted for hyperglycemia. Patient is stating that she has been compliant with her meds and does not know why her sugars are out of control. In ED she was noted to be hyperglycemic, hypertensive and altered, CT head was obtained which was negative for any acute stroke, was started on nicardipine drip and insulin drip and ICU was consulted for admission. As per ICU attending she did not qualify ICU admission and she could be admitted in ICU. Hospitalist consulted for admission. Past Medical History Cardiac Medical History: Reports: Hypertension Denies: Coronary Artery Disease, Myocardial Infarction Pulmonary Medical History: Reports: Pneumonia Denies: Asthma, Bronchitis, Chronic Obstructive Pulmonary Disease (COPD) Neurological Medical History: Denies: Seizures Endocrine Medical History: Reports: Diabetes Mellitus Type 1, Diabetes Mellitus Type 2 Denies: Hyperthyroidism, Hypothyroidism Renal/ Medical History: Reports: End Stage Renal Disease GI Medical History: Denies: Cirrhosis, Crohn's Disease, Hepatitis, Ulcerative Colitis Musculoskeltal Medical History: Denies: Arthritis, Fibromyalgia Skin Medical History: Denies: Eczema, Psoriasis Psychiatric Medical History: Denies: Depression Hematology: Denies: Anemia, Bleeding Tendencies Past Surgical History Past Surgical History: Reports: Appendectomy, Cholecystectomy, Orthopedic Surgery - feet, Tubal Ligation, Vascular Surgery - fistula upper arm, Other - Hemodialysis vascular access left upper extremity Social History Smoking Status: Never Smoker Frequency of Alcohol Use: None Hx Recreational Drug Use: No Drugs: None Hx Prescription Drug Abuse: No Family History Family History: DM, Hypertension Parental Family History Reviewed: Yes Children Family History Reviewed: Yes Sibling(s) Family History Reviewed.: Yes Medication/Allergy Home Medications: Amlodipine Besylate [Norvasc 5 mg Tablet] 5 mg PO QHS 05/24/19 Atorvastatin Calcium [Lipitor 20 mg Tablet] 20 mg PO QHS 05/24/19 Clonidine [Catapres-Tts 3 (0.3 mg/24 Hr) Transderm Patch] 1 patch TD MO@1000 05/24/19 Ferric Citrate [Auryxia] 630 mg PO TID 05/24/19 Gabapentin [Neurontin 100 mg Capsule] 200 mg PO Q8 MDD 6 CAPS 05/24/19 Insulin Aspart [Novolog] 9 unit SQ AC MDD 50 UNITS 05/24/19 Insulin Degludec [Tresiba] 16 unit SQ QPM 05/24/19 Aspirin [Ecotrin 81 mg EC Tablet] 81 mg PO DAILY 06/02/19 Allergies/Adverse Reactions: Penicillins Allergy (Severe, Verified 06/02/19 10:49) rash ciprofloxacin [From Cipro] Allergy (Verified 06/02/19 10:49) shellfish derived Allergy (Verified 06/02/19 10:49) Swelling of tongue oxycodone [From Percocet] Adverse Reaction (Verified 06/02/19 10:49) Review of Systems Review of Systems: as per hpi Physical Exam Vital Signs: Temp Pulse Resp BP Pulse Ox 67 12 140/63 H 100 06/02/19 10:41 06/02/19 13:41 06/02/19 13:41 06/02/19 10:41 Intake & Output 06/01/19 06/02/19 06/03/19 06:59 06:59 06:59 Weight 66.9 kg General appearance: PRESENT: no acute distress, obese, well-developed, well- nourished Mouth exam: PRESENT: dry mucosa Neck exam: ABSENT: carotid bruit, JVD, lymphadenopathy, thyromegaly Respiratory exam: PRESENT: clear to auscultation carlos. ABSENT: rales, rhonchi, wheezes Cardiovascular exam: PRESENT: RRR. ABSENT: diastolic murmur, rubs, systolic murmur GI/Abdominal exam: PRESENT: normal bowel sounds, soft. ABSENT: distended, guarding, mass, organolmegaly, rebound, tenderness Neurological exam: PRESENT: alert, awake, oriented to person, oriented to place, oriented to time, oriented to situation, CN II-XII grossly intact. ABSENT: motor sensory deficit Skin exam: PRESENT: dry Results Laboratory Results: 06/02/19 12:13 06/02/19 11:14 06/02/19 06/02/19 06/02/19 11:14 11:14 11:14 WBC Cancelled RBC Cancelled Hgb Cancelled Hct Cancelled MCV Cancelled MCH Cancelled MCHC Cancelled RDW Cancelled Plt Count Cancelled Seg Neutrophils % Cancelled Sodium 121.0 L Potassium 5.1 H Chloride 80 L Carbon Dioxide 23 Anion Gap 18 BUN 24 H Creatinine 3.95 H Est GFR ( Amer) 14 L Glucose 1430 H* Calcium 7.9 L Magnesium 1.7 Total Bilirubin 0.8 AST 26 Alkaline Phosphatase 294 H Total Protein 7.6 Albumin 3.9 Urine Color YELLOW Urine Appearance SLIGHTLY-CLOUDY Urine pH 8.0 Ur Specific [place] 1.020 Urine Protein >=500 H Urine Glucose (UA) >=500 H Urine Ketones NEGATIVE Urine Blood SMALL H Urine Nitrite NEGATIVE Ur Leukocyte Esterase NEGATIVE Urine WBC (Auto) 4 Urine RBC (Auto) 4 06/02/19 12:13 WBC 5.9 RBC 3.19 L Hgb 9.7 L Hct 34.4 L MCV 108 H D MCH 30.5 MCHC 28.3 L RDW 16.1 H Plt Count 235 Seg Neutrophils % 78.1 H Sodium Potassium Chloride Carbon Dioxide Anion Gap BUN Creatinine Est GFR ( Amer) Glucose Calcium Magnesium Total Bilirubin AST Alkaline Phosphatase Total Protein Albumin Urine Color Urine Appearance Urine pH Ur Specific [place] Urine Protein Urine Glucose (UA) Urine Ketones Urine Blood Urine Nitrite Ur Leukocyte Esterase Urine WBC (Auto) Urine RBC (Auto) 06/02/19 11:14 Troponin I < 0.012 Impressions: Chest X-Ray 06/02/19 10:45 IMPRESSION: Borderline heart size with minimal pulmonary edema. Head CT 06/02/19 10:45 IMPRESSION: NORMAL BRAIN CT WITHOUT CONTRAST. EVIDENCE OF ACUTE STROKE: NO. Assessment and Plan - Diagnosis (1) Hyperosmolar non-ketotic state in patient with type 2 diabetes mellitus Is this a current diagnosis for this admission?: Yes Plan: Questionable medication compliance. History of recurrent admission for hyperosmolar state. Serum glucose level 1440. Unfortunately not a candidate for volume resuscitation due to end-stage renal disease. Admit to ICU, insulin drip, BMP every 4 hours, monitor vitals and status. Will transition to subcutaneous insulin once euglycemic. (2) Hypertensive emergency Is this a current diagnosis for this admission?: Yes Plan: Evidenced by altered mental status, patient end-stage renal disease renal function could not be uses a marker for hypertensive emergency. Presented with systolic blood pressure of >200 Was a started on nicardipine drip and ED. Blood pressure are improving. Since patient is being admitted to [facility] nicardipine drip cannot be continued. Will DC nicardipine drip and start on IV hydralazine PRN. (3) End stage renal failure on dialysis Is this a current diagnosis for this admission?: Yes Plan: On hemodialysis. Does not appear uremic. Bicarb WNL. Mildly elevated potassium. No EKG changes. Consult nephrology for continuing hemodialysis while inpatient. Monitor volume status and electrolytes. (4) Hyponatremia with increased serum osmolality Is this a current diagnosis for this admission?: Yes Plan: Pseudohyponatremia secondary to hyperosmolar state. Plan as per #1. Monitor for seizure. (5) Hyperkalemia Is this a current diagnosis for this admission?: Yes Plan: No acute EKG changes. Patient has end-stage renal disease. Will administer Kayexalate while waiting for hemodialysis.
[2019-06-02] MEDS: AMLODIPINE BESYLATE 10 MG TABLET PO SCH (15:26)
[2019-06-02 16:03] LABS: BLOOD UREA NITROGEN 24 mg/dL (7-20); CALCIUM 7.7 mg/dL (8.4-10.2); CARBON DIOXIDE 24 mmol/L (22-30); CHLORIDE 80 mmol/L (98-107); POTASSIUM 4.7 mmol/L (3.6-5.0)
[2019-06-02 16:05] LABS: ANION GAP 14 (5-19)
--- NOTE | 2019-06-02 16:29 | PDOC CONSULTATION ---
Consultation Consult Date: 06/02/19 Attending physician:: DAPHNIE HEATH Provider Consulted: MAGDALENA JIMÉNEZ Consult reason:: Hyperglycemia with hypertension History of Present Illness Admission Date/PCP: 06/02/19 14:31 IRENECindy ABREUNEY Patient complains of: Dry mouth and twitch in face History of Present Illness: SAMIA HEALY is a 59 year old female with end-stage renal disease (dialysis dependent). Presented with twitching in her face very dry mouth after dialysis. She was sent over to the emergency room for concern for TIA. Also noted to have an extremely high elevated blood pressure with systolic greater than 240. Started on a Cardene drip but the insulin drip had not been started. Called by the ED staff to evaluate her for possible admission due to the complex nature of her illness. Had been recently admitted for similar situation with hyperglycemia as her presenting symptom. She denies chest pain, shortness of breath, headache, visual changes, body aches, fever, chills, night sweats. She checks her blood sugar once a day. Stopped smoking in January because she wanted to be a candidate for a kidney transplant. There is notable documentation of poor compliance medication regimen. Currently, her blood pressure is 135/60. Tolerated dialysis. No history recently of recreational drug use. Past Medical History Cardiac Medical History: Reports: Hypertension Denies: Atrial Fibrillation, Congestive Heart Failure, Coronary Artery Disease, Myocardial Infarction Pulmonary Medical History: Reports: Pneumonia Denies: Asthma, Bronchitis, Chronic Obstructive Pulmonary Disease (COPD) Neurological Medical History: Denies: Hemorrhagic CVA, Ischemic CVA, Migraine, Seizures Endocrine Medical History: Reports: Diabetes Mellitus Type 2 Denies: Diabetes Mellitus Type 1, Hyperthyroidism, Hypothyroidism Renal/ Medical History: Reports: Chronic Kidney Disease, End Stage Renal Dis ease Renal/ History Note: On dialysis Malignancy Medical History: Reports: None GI Medical History: Reports: None Denies: Cirrhosis, Crohn's Disease, Hepatitis, Ulcerative Colitis Musculoskeltal Medical History: Reports: None Denies: Arthritis, Fibromyalgia Skin Medical History: Denies: Eczema, Psoriasis Psychiatric Medical History: Reports: Tobacco Dependency Denies: Alcohol Dependency, Depression Psychiatric History Note: Stopped tobacco use in January Hematology: Denies: Anemia, Bleeding Tendencies Past Surgical History Past Surgical History: Reports: Appendectomy, Cholecystectomy, Orthopedic Surgery - feet, Tubal Ligation, Vascular Surgery - fistula upper arm (left) Done at [facility], Other - Hemodialysis vascular access left upper extremity Social History Information Source: Patient Smoking Status: Former Smoker - Stopped January 2019 Frequency of Alcohol Use: None Hx Recreational Drug Use: No Drugs: None Hx Prescription Drug Abuse: No Family History Family History: DM, Hypertension Parental Family History Reviewed: Yes Children Family History Reviewed: No Sibling(s) Family History Reviewed.: Yes Medication/Allergy Home Medications: Amlodipine Besylate [Norvasc 5 mg Tablet] 5 mg PO QHS 05/24/19 Atorvastatin Calcium [Lipitor 20 mg Tablet] 20 mg PO QHS 05/24/19 Clonidine [Catapres-Tts 3 (0.3 mg/24 Hr) Transderm Patch] 1 patch TD MO@1000 05/24/19 Ferric Citrate [Auryxia] 630 mg PO TID 05/24/19 Gabapentin [Neurontin 100 mg Capsule] 200 mg PO Q8 MDD 6 CAPS 05/24/19 Insulin Aspart [Novolog] 9 unit SQ AC MDD 50 UNITS 05/24/19 Insulin Degludec [Tresiba] 16 unit SQ QPM 05/24/19 Aspirin [Ecotrin 81 mg EC Tablet] 81 mg PO DAILY 06/02/19 Allergies/Adverse Reactions: Penicillins Allergy (Severe, Verified 06/02/19 10:49) rash ciprofloxacin [From Cipro] Allergy (Verified 06/02/19 10:49) shellfish derived Allergy (Verified 06/02/19 10:49) Swelling of tongue oxycodone [From Percocet] Adverse Reaction (Verified 06/02/19 10:49) Review of Systems All systems: as per PMH Constitutional: ABSENT: chills, fatigue, fever(s), headache(s), night sweats, weakness Eyes: PRESENT: as per HPI. ABSENT: visual disturbances Ears: ABSENT: hearing changes Nose, Mouth, and Throat: PRESENT: as per HPI, other - Extremely dry mouth. Persistent twitch left lip/face. No numbness Cardiovascular: PRESENT: as per HPI. ABSENT: chest pain, dyspnea on exertion, edema, orthropnea, palpitations Respiratory: PRESENT: as per HPI. ABSENT: dyspnea, hemoptysis Gastrointestinal: PRESENT: as per HPI. ABSENT: abdominal pain, bloating, coffee ground emesis, heartburn, hematemesis, hematochezia, melena, nausea, vomiting Genitourinary: PRESENT: as per HPI, other - occassionally has small urination Musculoskeletal: PRESENT: as per HPI. ABSENT: back pain, muscle weakness Integumentary: PRESENT: as per HPI. ABSENT: lesions Neurological: PRESENT: as per HPI. ABSENT: abnormal gait, abnormal movements, abnormal speech, confusion, convulsions, dizziness, focal weakness, frequent falls, lack of coordination, numbness, paresthesias Hematologic/Lymphatic: ABSENT: easy bleeding, easy bruising Physical Exam Vital Signs: Temp Pulse Resp BP Pulse Ox 67 12 140/63 H 100 06/02/19 10:41 06/02/19 13:41 06/02/19 13:41 06/02/19 10:41 Intake & Output 06/01/19 06/02/19 06/03/19 06:59 06:59 06:59 Intake Total 207 Balance 207 Weight 66.9 kg Physical Exam: Pleasant nontoxic older appearing 59-year-old female no active distress awake alert oriented x3 General appearance: PRESENT: no acute distress, cooperative, obese. ABSENT: hard of hearing, mild distress, severe distress Head exam: PRESENT: atraumatic, normocephalic Eye exam: PRESENT: conjunctiva pink, EOMI, PERRLA. ABSENT: conjunctival injection, nystagmus, scleral icterus Ear exam: PRESENT: other Mouth exam: PRESENT: dry mucosa, other - Facial twitch intermittenly, left face. No forehead twitch Teeth exam: PRESENT: edentulous Neck exam: ABSENT: carotid bruit, JVD, lymphadenopathy, meningismus, tenderness, thyromegaly, tracheal deviation, tracheostomy Respiratory exam: PRESENT: clear to auscultation carlos, unlabored. ABSENT: accessory muscle use, tachypnea Cardiovascular exam: PRESENT: RRR, +S1, +S2. ABSENT: rubs Pulses: PRESENT: other - no palpable dP pulses but warm and dry Vascular exam: PRESENT: normal capillary refill. ABSENT: pallor GI/Abdominal exam: PRESENT: normal bowel sounds, soft. ABSENT: ascites, diminished bowel sounds, distended, firm, mass, Meyers's sign, organolmegaly, rebound, rigid, tenderness Rectal exam: PRESENT: deferred Extremities exam: ABSENT: joint swelling, pedal edema, tenderness Musculoskeletal exam: PRESENT: deformity - Left foot. Club foot from , tenderness. ABSENT: dislocation Neurological exam: PRESENT: alert, awake, oriented to person, oriented to place, oriented to time, oriented to situation, CN II-XII grossly intact - Had occassional tic movement, left lip. Ceased with mouth closure. ABSENT: motor sensory deficit, aphasic Psychiatric exam: PRESENT: appropriate affect, normal mood. ABSENT: agitated, anxious, homicidal ideation, manic, suicidal ideation Focused psych exam: ABSENT: paranoid, psychomotor agitation, restlessness Skin exam: PRESENT: dry, intact, normal color. ABSENT: abrasion, cyanosis, erythema, jaundice, mottled, pallor, petechiae, rash, urticaria, vesicles Results Laboratory Results: 06/02/19 12:13 06/02/19 06/02/19 06/02/19 11:14 11:14 11:14 WBC Cancelled RBC Cancelled Hgb Cancelled Hct Cancelled MCV Cancelled MCH Cancelled MCHC Cancelled RDW Cancelled Plt Count Cancelled Seg Neutrophils % Cancelled Sodium 121.0 L Potassium 5.1 H Chloride 80 L Carbon Dioxide 23 Anion Gap 18 BUN 24 H Creatinine 3.95 H Est GFR ( Amer) 14 L Glucose 1430 H* Calcium 7.9 L Magnesium 1.7 Total Bilirubin 0.8 AST 26 Alkaline Phosphatase 294 H Total Protein 7.6 Albumin 3.9 Urine Color YELLOW Urine Appearance SLIGHTLY-CLOUDY Urine pH 8.0 Ur Specific [place] 1.020 Urine Protein >=500 H Urine Glucose (UA) >=500 H Urine Ketones NEGATIVE Urine Blood SMALL H Urine Nitrite NEGATIVE Ur Leukocyte Esterase NEGATIVE Urine WBC (Auto) 4 Urine RBC (Auto) 4 06/02/19 12:13 WBC 5.9 RBC 3.19 L Hgb 9.7 L Hct 34.4 L MCV 108 H D MCH 30.5 MCHC 28.3 L RDW 16.1 H Plt Count 235 Seg Neutrophils % 78.1 H Sodium Potassium Chloride Carbon Dioxide Anion Gap BUN Creatinine Est GFR ( Amer) Glucose Calcium Magnesium Total Bilirubin AST Alkaline Phosphatase Total Protein Albumin Urine Color Urine Appearance Urine pH Ur Specific [place] Urine Protein Urine Glucose (UA) Urine Ketones Urine Blood Urine Nitrite Ur Leukocyte Esterase Urine WBC (Auto) Urine RBC (Auto) 06/02/19 11:14 Troponin I < 0.012 Impressions: Chest X-Ray 06/02/19 10:45 IMPRESSION: Borderline heart size with minimal pulmonary edema. Head CT 06/02/19 10:45 IMPRESSION: NORMAL BRAIN CT WITHOUT CONTRAST. EVIDENCE OF ACUTE STROKE: NO. Status: Image reviewed by me Assessment & Plan - Diagnosis (1) Hyperglycemia due to type 2 diabetes mellitus Qualifiers: Diabetes mellitus buttermilk drier operator insulin use: unspecified prison insulin use status Qualified Code(s): E11.65 - Type 2 diabetes mellitus with hyperglycemia Is this a current diagnosis for this admission?: Yes (2) Accelerated hypertension Is this a current diagnosis for this admission?: Yes (3) Tic disorder Is this a current diagnosis for this admission?: Yes Plan: Suggests relation to metabolic process. Would screen with angiogram of head/neck vessels (4) CKD (chronic kidney disease) stage V requiring chronic dialysis Is this a current diagnosis for this admission?: Yes (5) Type 2 diabetes mellitus Qualifiers: Diabetes mellitus buttermilk drier operator insulin use: with prison use Diabetes mellitus complication status: with kidney complications Diabetes mellitus complication detail: with chronic kidney disease Chronic kidney disease stage: on chronic dialysis Qualified Code(s): E11.22 - Type 2 diabetes mellitus with diabetic chronic kidney disease; N18.6 - End stage renal disease; Z79.4 - senior living (current) use of insulin; Z99.2 - Dependence on renal dialysis Is this a current diagnosis for this admission?: Yes - Time Time Spent: 50 to 70 Minutes Medications reviewed and adjusted accordingly: Yes - Inpatient Certification Based on my medical assessment, after consideration of the patient's comorbidities, presenting symptoms, or acuity I expect that the services needed warrant INPATIENT care.: Yes I certify that my determination is in accordance with my understanding of Medicare's requirements for reasonable and necessary INPATIENT services [42 CFR 412.3e].: Yes Medical Necessity: Significant Comorbidiites Make Outpatient Treatment Too Risky, Need For IV Fluids, Need For Continuous Telemetry Monitoring, Risk of Complication if Not Cared For in Hospital, Risk of Diagnosis Which Will Require Inpatient Eval/Care/Monitoring - Plan Summary Plan Summary: Patient seen and evaluated in the emergency room. She does not meet criteria for ICU critical care admission. Would suggest admission to monitored unit with insulin therapy. This is not a stroke syndrome and most likely represents a metabolic derangement leading to facial nerve dysfunction. That being said she has no evidence to support full trigeminal or facial nerve disease. Her blood pressure now is 135/70 on Cardene and I have asked for this to be discontinued. Asked for insulin therapy to be started. Given her facial twitch/tic, would consider head and neck angiogram to assure that there is no visual nerve compression by vessels. She is being considered for kidney transplant and has stopped smoking since January 2019. We have encouraged her to continue to be compliant with this and to improve her glycemic control. Case discussed with the emergency room staff and personnel as well as the hospitalist service for acceptance to their team. CPT code 9255 with greater than 50% spent in coordination of care and discussion with hospital staff.
[2019-06-02 16:33] LABS: GLUCOSE 1321 mg/dL (75-110)
[2019-06-02] MEDS: NORMAL SALINE 100 ML with INSULIN REGULAR, HUMAN 100 UNIT IV PRN ×6 (17:50→22:18)
[2019-06-02] MEDS: DOCUSATE SODIUM 100 MG CAPSULE PO SCH (17:56)
[2019-06-02 18:01] LABS: ANION GAP 18 (5-19); BLOOD UREA NITROGEN 25 mg/dL (7-20); CALCIUM 8.1 mg/dL (8.4-10.2); CARBON DIOXIDE 21 mmol/L (22-30); CHLORIDE 82 mmol/L (98-107)
[2019-06-02 18:14] LABS: GLUCOSE 1041 mg/dL (75-110)
[2019-06-02 19:50] LABS: ANION GAP 18 (5-19); BLOOD UREA NITROGEN 26 mg/dL (7-20); CALCIUM 8.5 mg/dL (8.4-10.2); CARBON DIOXIDE 21 mmol/L (22-30); CHLORIDE 87 mmol/L (98-107); POTASSIUM 3.9 mmol/L (3.6-5.0)
[2019-06-02 20:03] LABS: GLUCOSE 698 mg/dL (75-110)
[2019-06-02] MEDS: ATORVASTATIN CALCIUM 20 MG TABLET PO SCH (21:28)
[2019-06-02] MEDS: GABAPENTIN 100 MG CAPSULE PO SCH (21:28)
[2019-06-02] MEDS: HEPARIN SOD (PORCINE) 5,000 UNIT/ML 1 ML VIAL SUBCUT SCH (21:29)
[2019-06-02 21:42] LABS: ANION GAP 16 (5-19); BLOOD UREA NITROGEN 26 mg/dL (7-20); CALCIUM 8.5 mg/dL (8.4-10.2); CARBON DIOXIDE 22 mmol/L (22-30); CHLORIDE 90 mmol/L (98-107); CREATINE KINASE 47 U/L (30-135); GLUCOSE 374 mg/dL (75-110); POTASSIUM 3.7 mmol/L (3.6-5.0)
[2019-06-02] MEDS ORDERED: FAMOTIDINE 20 MG TABLET PO SCH (22:00)
[2019-06-02 22:06] LABS: CREATINE KINASE MB 1.34 ng/mL (<4.55); TROPONIN I 0.024 ng/mL
--- NOTE | 2019-06-02 23:33 | EKG REPORT ---
SEVERITY:- ABNORMAL ECG - SINUS RHYTHM LEFT ATRIAL ABNORMALITY PROBABLE LVH WITH SECONDARY REPOL ABNRM : Confirmed by: Roselyn Ziegler MD 02-Jun-2019 23:31:47
--- NOTE | 2019-06-02 23:33 | EKG REPORT ---
SEVERITY:- ABNORMAL ECG - SINUS RHYTHM PROBABLE LEFT ATRIAL ABNORMALITY PROBABLE LEFT VENTRICULAR HYPERTROPHY : Confirmed by: Roselyn Ziegler MD 02-Jun-2019 23:31:51
[2019-06-02] MEDS ORDERED: MORPHINE SULFATE 10 MG/ML INJ IV PRN (23:43)
[2019-06-03] MEDS: INSULIN REG, HUMAN 100 UNIT/ML 3 ML VIAL (PYX) SUBCUT SCH ×2 (01:31→05:46)
[2019-06-03 01:32] LABS: ANION GAP 15 (5-19); BLOOD UREA NITROGEN 27 mg/dL (7-20); CALCIUM 8.5 mg/dL (8.4-10.2); CARBON DIOXIDE 24 mmol/L (22-30); CHLORIDE 91 mmol/L (98-107); GLUCOSE 109 mg/dL (75-110); POTASSIUM 3.9 mmol/L (3.6-5.0)
[2019-06-03 05:13] LABS: HEMATOCRIT 27.3 % (36.0-47.0); HEMOGLOBIN 9.2 g/dL (12.0-15.5); MEAN CORPUSCULAR HEMOGLOBIN 30.2 pg (27.0-33.4); MEAN CORPUSCULAR HGB CONC 33.8 g/dL (32.0-36.0); PLATELET COUNT 260 10^3/uL (150-450); RED BLOOD COUNT 3.06 10^6/uL (3.72-5.28); RED CELL DISTRIBUTION WIDTH 14.4 % (11.5-14.0); WHITE BLOOD COUNT 9.8 10^3/uL (4.0-10.5)
[2019-06-03 05:14] LABS: MEAN CORPUSCULAR VOLUME 89 fl (80-97)
[2019-06-03 05:30] LABS: ANION GAP 14 (5-19); BLOOD UREA NITROGEN 28 mg/dL (7-20); CALCIUM 8.4 mg/dL (8.4-10.2); CARBON DIOXIDE 25 mmol/L (22-30); CHLORIDE 88 mmol/L (98-107); GLUCOSE 213 mg/dL (75-110)
[2019-06-03 05:37] LABS: CREATINE KINASE MB 1.61 ng/mL (<4.55)
[2019-06-03 05:38] LABS: TROPONIN I < 0.012 ng/mL
[2019-06-03] MEDS: HEPARIN SOD (PORCINE) 5,000 UNIT/ML 1 ML VIAL SUBCUT SCH ×3 (05:45→21:47)
[2019-06-03] MEDS: GABAPENTIN 100 MG CAPSULE PO SCH (05:46)
[2019-06-03] MEDS ORDERED: ACETAMINOPHEN 325 MG TABLET PO PRN (10:01)
[2019-06-03] MEDS ORDERED: DEXTROSE 50%-WATER 25 GM/50 ML DISP.SYRIN IV PRN ×2 (10:09)
[2019-06-03] MEDS ORDERED: DEXTROSE 40% GEL 15 GM TUBE PO PRN ×2 (10:09)
[2019-06-03] MEDS ORDERED: GLUCAGON,HUMAN RECOMB 1 MG INJ IM PRN (10:09)
--- NOTE | 2019-06-03 10:16 | PDOC PROGRESS REPORT ---
Subjective Progress Note for:: 06/03/19 Subjective:: SAMIA HEALY is a 59 year old female past medical history of hypertension, diabetes, end-stage renal disease on hemodialysis, anemia of chronic disease, sent to ED by PCP after sudden onset left facial droop and dysarthria. Had a similar episode last week and was diagnosed with TIA. Stating that she went to PCP for routine checkup and suddenly felt left side of her face weak and numb on the left side. She is also complaining of feeling cold and thirsty with dry mouth and nauseous. Denies any shortness of breath, chest pain, abdominal pain, diarrhea or any constipation. Patient has history of frequent hospitalization for hypoglycemia/hyperglycemia coma and recently discharged on 05/29/2019 after being admitted for hyperglycemia. Patient is stating that she has been compliant with her meds and does not know why her sugars are out of control. In ED she was noted to be hyperglycemic, hypertensive and altered, CT head was obtained which was negative for any acute stroke, was started on nicardipine drip and insulin drip and ICU was consulted for admission. As per ICU attending she did not qualify ICU admission and she could be admitted in ICU. Hospitalist consulted for admission. 06/03/2019. No acute events overnight. On my encounter patient resting comfortably in bed, in no apparent distress, stating that her facial numbness, mouth dryness as well as thirst have resolved,complaining of bilateral lower extremity below the elbows pain. Denies any fever, chills, nausea, vomiting, diarrhea, constipation. Patient is scheduled for hemodialysis today. When asked about medication adherence she is stating that she has been adherent with her meds and she missed her insulin only on 06/02/2019 when she was hospitalized. Reason For Visit: HYPEROSMOLAR STATE,HYPERTENSIVE EMERGENCY Physical Exam Vital Signs: Temp Pulse Resp BP Pulse Ox 97.9 F 61 15 120/64 98 06/03/19 07:09 06/03/19 07:09 06/03/19 07:09 06/03/19 07:09 06/03/19 07:09 Intake & Output 06/02/19 06/03/19 06/04/19 06:59 06:59 06:59 Intake Total 792 Output Total 0 Balance 792 Weight 66.4 kg General appearance: PRESENT: no acute distress, well-developed, well-nourished Mouth exam: PRESENT: moist, tongue midline Respiratory exam: PRESENT: clear to auscultation carlos. ABSENT: rales, rhonchi, wheezes Cardiovascular exam: PRESENT: RRR. ABSENT: diastolic murmur, rubs, systolic murmur GI/Abdominal exam: PRESENT: normal bowel sounds, soft. ABSENT: distended, guarding, mass, organolmegaly, rebound, tenderness Extremities exam: PRESENT: full ROM, other - Bilateral upper extremity below elbow tenderness, neurovascularly intact.. ABSENT: calf tenderness, clubbing, pedal edema Neurological exam: PRESENT: alert, awake, oriented to person, oriented to place, oriented to time, oriented to situation, CN II-XII grossly intact. ABSENT: motor sensory deficit Results Laboratory Results: 06/03/19 04:44 06/03/19 04:44 06/02/19 06/02/19 06/02/19 11:14 11:14 11:14 WBC Cancelled RBC Cancelled Hgb Cancelled Hct Cancelled MCV Cancelled MCH Cancelled MCHC Cancelled RDW Cancelled Plt Count Cancelled Seg Neutrophils % Cancelled Sodium 121.0 L Potassium 5.1 H Chloride 80 L Carbon Dioxide 23 Anion Gap 18 BUN 24 H Creatinine 3.95 H Est GFR ( Amer) 14 L Glucose 1430 H* Calcium 7.9 L Phosphorus Magnesium 1.7 Total Bilirubin 0.8 AST 26 Alkaline Phosphatase 294 H Total Protein 7.6 Albumin 3.9 Urine Color YELLOW Urine Appearance SLIGHTLY-CLOUDY Urine pH 8.0 Ur Specific [place] 1.020 Urine Protein >=500 H Urine Glucose (UA) >=500 H Urine Ketones NEGATIVE Urine Blood SMALL H Urine Nitrite NEGATIVE Ur Leukocyte Esterase NEGATIVE Urine WBC (Auto) 4 Urine RBC (Auto) 4 06/02/19 06/02/19 06/02/19 12:13 15:14 17:22 WBC 5.9 RBC 3.19 L Hgb 9.7 L Hct 34.4 L MCV 108 H D MCH 30.5 MCHC 28.3 L RDW 16.1 H Plt Count 235 Seg Neutrophils % 78.1 H Sodium 118.3 L* 121.3 L Potassium 4.7 4.0 Chloride 80 L 82 L Carbon Dioxide 24 21 L Anion Gap 14 18 BUN 24 H 25 H Creatinine 4.16 H 4.47 H Est GFR ( Amer) 13 L 12 L Glucose 1321 H* 1041 H* Calcium 7.7 L 8.1 L Phosphorus Magnesium Total Bilirubin AST Alkaline Phosphatase Total Protein Albumin Urine Color Urine Appearance Urine pH Ur Specific [place] Urine Protein Urine Glucose (UA) Urine Ketones Urine Blood Urine Nitrite Ur Leukocyte Esterase Urine WBC (Auto) Urine RBC (Auto) 06/02/19 06/02/19 06/03/19 19:16 21:12 01:05 WBC RBC Hgb Hct MCV MCH MCHC RDW Plt Count Seg Neutrophils % Sodium 126.0 L 128.4 L 129.6 L Potassium 3.9 3.7 3.9 Chloride 87 L 90 L 91 L Carbon Dioxide 21 L 22 24 Anion Gap 18 16 15 BUN 26 H 26 H 27 H Creatinine 4.62 H 4.93 H 5.13 H Est GFR ( Amer) 12 L 11 L 10 L Glucose 698 H* 374 H 109 Calcium 8.5 8.5 8.5 Phosphorus Magnesium Total Bilirubin AST Alkaline Phosphatase Total Protein Albumin Urine Color Urine Appearance Urine pH Ur Specific [place] Urine Protein Urine Glucose (UA) Urine Ketones Urine Blood Urine Nitrite Ur Leukocyte Esterase Urine WBC (Auto) Urine RBC (Auto) 06/03/19 06/03/19 04:44 04:44 WBC 9.8 RBC 3.06 L Hgb 9.2 L Hct 27.3 L MCV 89 D MCH 30.2 MCHC 33.8 RDW 14.4 H Plt Count 260 Seg Neutrophils % Sodium 126.8 L Potassium 4.0 Chloride 88 L Carbon Dioxide 25 Anion Gap 14 BUN 28 H Creatinine 5.06 H Est GFR ( Amer) 11 L Glucose 213 H Calcium 8.4 Phosphorus 5.0 H Magnesium 1.5 L Total Bilirubin AST Alkaline Phosphatase Total Protein Albumin Urine Color Urine Appearance Urine pH Ur Specific [place] Urine Protein Urine Glucose (UA) Urine Ketones Urine Blood Urine Nitrite Ur Leukocyte Esterase Urine WBC (Auto) Urine RBC (Auto) 06/02/19 06/02/19 06/02/19 11:14 21:12 21:12 Creatine Kinase 47 CK-MB (CK-2) 1.34 Troponin I < 0.012 0.024 06/03/19 06/03/19 04:44 04:44 Creatine Kinase 55 CK-MB (CK-2) 1.61 Troponin I < 0.012 Impressions: Chest X-Ray 06/02/19 10:45 IMPRESSION: Borderline heart size with minimal pulmonary edema. Head CT 06/02/19 10:45 IMPRESSION: NORMAL BRAIN CT WITHOUT CONTRAST. EVIDENCE OF ACUTE STROKE: NO. Assessment and Plan - Diagnosis (1) Type 2 diabetes mellitus Qualifiers: Diabetes mellitus senior living insulin use: with intermediate project manager use Diabetes mellitus complication status: with kidney complications Diabetes mellitus complication detail: with chronic kidney disease Chronic kidney disease stage: on chronic dialysis Qualified Code(s): E11.22 - Type 2 diabetes mellitus with diabetic chronic kidney disease; N18.6 - End stage renal disease; Z79.4 - terminal block assembler (current) use of insulin; Z99.2 - Dependence on renal dialysis Is this a current diagnosis for this admission?: Yes Plan: History of uncontrolled diabetes due noncompliance. Improving since admission. Home meds are: Tresiba 16 units every afternoon and lispro 9 units before meals. Contineu diabetic diet, Accu-Chek, hypoglycemia protocol, diabetic education, adjust insulin dosage as needed. (2) TIA (transient ischemic attack) Is this a current diagnosis for this admission?: Yes Plan: Likely secondary to hypertensive emergency. CT head negative for any acute abnormalities. Right facial numbness resolved. Negative for any new focal neurological deficits. Was admitted to telemetry, started on aspirin, statins and optimized blood pressure. PT OT consulted. No rehab recommended. PT at baseline. (3) Hypertension Qualifiers: Is this a current diagnosis for this admission?: Yes Plan: Normotensive. Euvolemic. Home meds are amlodipine 5 mg p.o. daily. Clonidine TD 0.3 mg every 24 hours. Restart home meds. Adjust meds as needed. PRN IV hydralazine. (4) Hyperosmolar non-ketotic state in patient with type 2 diabetes mellitus Is this a current diagnosis for this admission?: Yes Plan: Resolved. Fasting blood glucose 229. Questionable medication compliance. History of recurrent admission for hyperosmolar state. Serum glucose on admission 1440. Unfortunately not a candidate for volume resuscitation due to end-stage renal disease. Initially started on insulin drip, BMP every 4 hours, monitor vitals and status. DC insulin drip, switch to subcutaneous basal, prandial, sliding scale insulin. Diabetic diet, Accu-Chek, hypoglycemia protocol, diabetic education, adjust insulin dosage as needed. (5) End stage renal failure on dialysis Is this a current diagnosis for this admission?: Yes Plan: On hemodialysis TTS. Does not appear uremic. Bicarb WNL. Electrolytes WNL. Nephrology consulted. Hemodialysis today. Continue monitoring volume status and electrolytes. Replace electrolytes as needed. Nephrology consulted. Recommendations noted. (6) Hyponatremia with increased serum osmolality Is this a current diagnosis for this admission?: Yes Plan: Improving. Serum sodium 126. Pseudohyponatremia secondary to hyperosmolar state. Continue treating the underlying diabetes. Monitor for seizures. BMP tomorrow. (7) Hyperkalemia Is this a current diagnosis for this admission?: Yes Plan: Resolved. Was a started on Kayexalate. No acute EKG changes. Patient has end- stage renal disease. Continue supplemental Kayexalate, hemodialysis, renal diet. BMP tomorrow. (8) Hypertensive emergency Is this a current diagnosis for this admission?: Yes Plan: Resolved. Evidenced by altered mental status, patient end-stage renal disease renal function could not be uses a marker for hypertensive emergency. Presented with systolic blood pressure of >200 Was a started on nicardipine drip and ED and was transitioned to PRN hydralazine at home meds.
--- NOTE | 2019-06-03 10:20 | PDOC CONSULTATION ---
Consultation Consult Date: 06/03/19 Provider Consulted: DAVID MOSES Consult reason:: I was asked to see the patient to evaluate for need for dialysis and to supervise dialysis while here in the hospital in a patient with ESRD. History of Present Illness Admission Date/PCP: 06/02/19 14:31 IRENE BLANCAS History of Present Illness: SAMIA HEALY is a 59 year old female with history of ESRD on maintenance hemodialysis on TTH S, diabetes mellitus type 2, hypertension, previous episodes of TIAs recently, and possible noncompliance who was brought to the emergency room yesterday because of sudden onset of left facial droop and dysarthria. Patient was at her primary care providers, Dr. Blancas's office's waiting area when she started having the above symptoms. Because she does not want to go to [facility] the PA actually immediately drove her to the emergency room here at [facility]. She stated that she was a little bit nauseated yesterday. However she denies symptoms including shortness of breath, chest pains, or headache. Initial evaluation in the emergency room revealed elevated pressure of as high as systolic blood pressure of 240 and from the records the highest was 222/80. She also presented with initial blood sugar of 1400 mg. She was started on Cardene drip for the blood pressure and her blood pressure went down to 135/60. She was also started on insulin drip in the emergency room. Patient was evaluated by our machine shop apprentice and was deemed to be not appropriate for ICU admission so she was admitted in [facility]. Patient's left facial droop and dysarthria has completely resolved by the time she got up to the floor. Her Cardene drip was tapered off in the emergency room. Her blood sugars also went down to 80s last night so the insulin drip was also discontinued. Patient was just recently admitted for TIA on May 24. During that time she was worked up including a CT scan and MRI of the brain which were both negative for acute changes. She also had an echocardiogram of which final report is still pending. A carotid ultrasound showed no hemodynamically significant carotid stenosis. CT scan of the head yesterday was also negative for acute changes. Today when I evaluated her in her room her neurologic symptoms are no longer observed. Her complaints today include right hand swelling presumably due to IV insertion. She also complains of bilateral arm numbness and weak grasp on both hands. She denies any chest pains no shortness of breath. She has no other complaints otherwise. Her last dialysis was last Friday. Her electrolytes today are within acceptable limits. Past Medical History Cardiac Medical History: Reports: Hypertension-primary Pulmonary Medical History: Reports: Pneumonia Neurological Medical History: Reports: Other - Multiple episodes of TIA Endocrine Medical History: Reports: Diabetes Mellitus Type 2 Renal/ Medical History: Reports: End Stage Renal Disease, Renal Osteodystropy Psychiatric Medical History: Reports: Tobacco Dependency Hematology Medical History: Reports Anemia of Chronic Kidney Disease Past Surgical History Past Surgical History: Reports: Appendectomy, Cholecystectomy, Dialysis Access Surgery AVF, Orthopedic Surgery - feet, Tubal Ligation, Vascular Surgery - fistula upper arm (left) Done at [facility], Other - Hemodialysis vascular access left upper extremity Social History Information Source: Patient Smoking Status: Former Smoker Frequency of Alcohol Use: None Hx Recreational Drug Use: No Drugs: None Hx Prescription Drug Abuse: No - Advance Directive Resuscitation Status: Full Code Family History Family History: DM - Mother, Hypertension - Father Parental Family History Reviewed: Yes Children Family History Reviewed: Yes Sibling(s) Family History Reviewed.: Yes Medication/Allergy Home Medications: Amlodipine Besylate [Norvasc 5 mg Tablet] 5 mg PO QHS 05/24/19 Atorvastatin Calcium [Lipitor 20 mg Tablet] 20 mg PO QHS 05/24/19 Clonidine [Catapres-Tts 3 (0.3 mg/24 Hr) Transderm Patch] 1 patch TD MO@1000 05/24/19 Ferric Citrate [Auryxia] 630 mg PO TID 05/24/19 Gabapentin [Neurontin 100 mg Capsule] 200 mg PO Q8 MDD 6 CAPS 05/24/19 Insulin Aspart [Novolog] 9 unit SQ AC MDD 50 UNITS 05/24/19 Insulin Degludec [Tresiba] 16 unit SQ QPM 05/24/19 Aspirin [Ecotrin 81 mg EC Tablet] 81 mg PO DAILY 06/02/19 Allergies/Adverse Reactions: Penicillins Allergy (Severe, Verified 06/02/19 10:49) rash ciprofloxacin [From Cipro] Allergy (Verified 06/02/19 10:49) shellfish derived Allergy (Verified 06/02/19 10:49) Swelling of tongue oxycodone [From Percocet] Adverse Reaction (Verified 06/02/19 10:49) Review of Systems All systems: reviewed and no additional remarkable complaints except as stated Review of Systems: Constitutional: ABSENT: chills, fatigue, fever(s), headache(s), weight gain, weight loss Eyes: ABSENT: visual disturbances Ears: ABSENT: hearing changes Cardiovascular: ABSENT: chest pain, dyspnea on exertion, edema, orthropnea, palpitations Respiratory: ABSENT: cough, dyspnea, hemoptysis Gastrointestinal: ABSENT: abdominal pain, constipation, diarrhea, hematemesis, hematochezia, nausea, vomiting Genitourinary: ABSENT: dysuria, hematuria Musculoskeletal: Right hand swelling Integumentary: ABSENT: rash, wounds Neurological: ABSENT: abnormal gait, confusion, dizziness, focal weakness, numbness, syncope; patient had left facial droop and dysarthria which are now resolved, reports bilateral arm numbness and weak grasp on both hands Psychiatric: ABSENT: anxiety, depression Endocrine: ABSENT: cold intolerance, heat intolerance, polydipsia, polyuria Hematologic/Lymphatic: ABSENT: easy bleeding, easy bruising, lymphadenopathy Physical Exam Vital Signs: Temp Pulse Resp BP Pulse Ox 97.9 F 61 15 120/64 98 06/03/19 07:09 06/03/19 07:09 06/03/19 07:09 06/03/19 07:09 06/03/19 07:09 Intake & Output 06/02/19 06/03/19 06/04/19 06:59 06:59 06:59 Intake Total 792 Output Total 0 Balance 792 Weight 66.4 kg Exam: General appearance: No acute distress, cooperative, well-developed, well- nourished Head exam: PRESENT: atraumatic, normocephalic; face is mildly swollen Eye exam: PRESENT: Conjunctiva slightly pale, EOMI, PERRLA. ABSENT: conjunctival injection, scleral icterus Mouth exam: PRESENT: moist, neck supple, tongue midline Neck exam: PRESENT: full ROM. ABSENT: carotid bruit, JVD, lymphadenopathy, thyromegaly Respiratory exam: PRESENT: Diminished to auscultation bilaterally. Positive bibasilar crackles ABSENT: Rhonchi, stridor, wheezes Cardiovascular exam: PRESENT: RRR, +S1, +S2. ABSENT: systolic murmur Pulses: PRESENT: normal radial pulses, normal dorsalis pedis pulses GI/Abdominal exam: PRESENT: normal bowel sounds, soft. ABSENT: guarding, mass, tenderness Rectal exam: Deferred Extremities exam: PRESENT: Patient has right hand swelling. Has very limited and difficulty of hand grasping bilaterally ABSENT: calf tenderness, pedal edema Musculoskeletal: PRESENT: full ROM. ABSENT: deformity Neurological exam: PRESENT: alert, Awake, Oriented to person, Oriented to place, Oriented to time, reflexes normal, CN II-XII grossly intact. She has decreased sensation in left upper arm only compared to the contralateral arm, bilateral forearms and lower extremities ABSENT: motor deficit Psychiatric exam: PRESENT: appropriate affect, normal mood. ABSENT: homicidal ideation, suicidal ideation Skin exam: PRESENT: intact, dry, warm. ABSENT: rash Results Laboratory Results: 06/03/19 04:44 06/03/19 04:44 06/02/19 06/02/19 06/02/19 11:14 11:14 11:14 WBC Cancelled RBC Cancelled Hgb Cancelled Hct Cancelled MCV Cancelled MCH Cancelled MCHC Cancelled RDW Cancelled Plt Count Cancelled Seg Neutrophils % Cancelled Sodium 121.0 L Potassium 5.1 H Chloride 80 L Carbon Dioxide 23 Anion Gap 18 BUN 24 H Creatinine 3.95 H Est GFR ( Amer) 14 L Glucose 1430 H* Calcium 7.9 L Phosphorus Magnesium 1.7 Total Bilirubin 0.8 AST 26 Alkaline Phosphatase 294 H Total Protein 7.6 Albumin 3.9 Urine Color YELLOW Urine Appearance SLIGHTLY-CLOUDY Urine pH 8.0 Ur Specific [place] 1.020 Urine Protein >=500 H Urine Glucose (UA) >=500 H Urine Ketones NEGATIVE Urine Blood SMALL H Urine Nitrite NEGATIVE Ur Leukocyte Esterase NEGATIVE Urine WBC (Auto) 4 Urine RBC (Auto) 4 06/02/19 06/02/19 06/02/19 12:13 15:14 17:22 WBC 5.9 RBC 3.19 L Hgb 9.7 L Hct 34.4 L MCV 108 H D MCH 30.5 MCHC 28.3 L RDW 16.1 H Plt Count 235 Seg Neutrophils % 78.1 H Sodium 118.3 L* 121.3 L Potassium 4.7 4.0 Chloride 80 L 82 L Carbon Dioxide 24 21 L Anion Gap 14 18 BUN 24 H 25 H Creatinine 4.16 H 4.47 H Est GFR ( Amer) 13 L 12 L Glucose 1321 H* 1041 H* Calcium 7.7 L 8.1 L Phosphorus Magnesium Total Bilirubin AST Alkaline Phosphatase Total Protein Albumin Urine Color Urine Appearance Urine pH Ur Specific [place] Urine Protein Urine Glucose (UA) Urine Ketones Urine Blood Urine Nitrite Ur Leukocyte Esterase Urine WBC (Auto) Urine RBC (Auto) 06/02/19 06/02/19 06/03/19 19:16 21:12 01:05 WBC RBC Hgb Hct MCV MCH MCHC RDW Plt Count Seg Neutrophils % Sodium 126.0 L 128.4 L 129.6 L Potassium 3.9 3.7 3.9 Chloride 87 L 90 L 91 L Carbon Dioxide 21 L 22 24 Anion Gap 18 16 15 BUN 26 H 26 H 27 H Creatinine 4.62 H 4.93 H 5.13 H Est GFR ( Amer) 12 L 11 L 10 L Glucose 698 H* 374 H 109 Calcium 8.5 8.5 8.5 Phosphorus Magnesium Total Bilirubin AST Alkaline Phosphatase Total Protein Albumin Urine Color Urine Appearance Urine pH Ur Specific [place] Urine Protein Urine Glucose (UA) Urine Ketones Urine Blood Urine Nitrite Ur Leukocyte Esterase Urine WBC (Auto) Urine RBC (Auto) 06/03/19 06/03/19 04:44 04:44 WBC 9.8 RBC 3.06 L Hgb 9.2 L Hct 27.3 L MCV 89 D MCH 30.2 MCHC 33.8 RDW 14.4 H Plt Count 260 Seg Neutrophils % Sodium 126.8 L Potassium 4.0 Chloride 88 L Carbon Dioxide 25 Anion Gap 14 BUN 28 H Creatinine 5.06 H Est GFR ( Amer) 11 L Glucose 213 H Calcium 8.4 Phosphorus 5.0 H Magnesium 1.5 L Total Bilirubin AST Alkaline Phosphatase Total Protein Albumin Urine Color Urine Appearance Urine pH Ur Specific [place] Urine Protein Urine Glucose (UA) Urine Ketones Urine Blood Urine Nitrite Ur Leukocyte Esterase Urine WBC (Auto) Urine RBC (Auto) 06/02/19 06/02/19 06/02/19 11:14 21:12 21:12 Creatine Kinase 47 CK-MB (CK-2) 1.34 Troponin I < 0.012 0.024 06/03/19 06/03/19 04:44 04:44 Creatine Kinase 55 CK-MB (CK-2) 1.61 Troponin I < 0.012 Impressions: Chest X-Ray 06/02/19 10:45 IMPRESSION: Borderline heart size with minimal pulmonary edema. Head CT 06/02/19 10:45 IMPRESSION: NORMAL BRAIN CT WITHOUT CONTRAST. EVIDENCE OF ACUTE STROKE: NO. Assessment & Plan - Diagnosis (1) TIA (transient ischemic attack) Is this a current diagnosis for this admission?: Yes Plan: Now resolved. Likely due to severe hypertension and presentation. Previous work-up on 05/24 were all negative. (2) Hypertensive emergency Is this a current diagnosis for this admission?: Yes Plan: Blood pressure is now currently controlled on current regimen. Of note the patient's home blood pressure medications includes the clonidine 0.3 mg patch, amlodipine 5 mg p.o. nightly and carvedilol 12.5 mg p.o. twice daily. We will try to switch her to her home blood pressure regimen. (3) Hyperosmolar non-ketotic state in patient with type 2 diabetes mellitus Is this a current diagnosis for this admission?: Yes Plan: Now improved. Continue management per the hospitalist service. (4) ESRD (end stage renal disease) Is this a current diagnosis for this admission?: Yes Plan: There is no urgent indication for dialysis today since we do not have regular dialysis today in the hospital. We will plan to do dialysis tomorrow. (5) Anemia in chronic kidney disease (CKD) Is this a current diagnosis for this admission?: Yes Plan: Procrit during dialysis as needed. (6) Hyponatremia with increased serum osmolality Is this a current diagnosis for this admission?: Yes Plan: Corrected sodium for glucose is now 130. Likely due to mild fluid retention. (7) Renal osteodystrophy Is this a current diagnosis for this admission?: Yes (8) Hypomagnesemia Is this a current diagnosis for this admission?: Yes Plan: Monitor for now. - Notes Notes: Thank you very much for this consultation. We will follow patient and supervise dialysis with you. - Time Time Spent: 50 to 70 Minutes
[2019-06-03] MEDS: ASPIRIN 81 MG TABLET, ENT COATED PO SCH (10:24)
[2019-06-03] MEDS: DOCUSATE SODIUM 100 MG CAPSULE PO SCH ×2 (10:24→21:47)
[2019-06-03] MEDS ORDERED: INSULIN REG, HUMAN 100 UNIT/ML 3 ML VIAL (PYX) SUBCUT SCH (11:00)
[2019-06-03] MEDS ORDERED: PROMETHAZINE HCL INJ 25 MG/1 ML VIAL IV PRN (11:00)
[2019-06-03 12:00] LABS: CREATINE KINASE MB 1.76 ng/mL (<4.55)
[2019-06-03 12:06] LABS: TROPONIN I < 0.012 ng/mL
[2019-06-03] MEDS: INSULIN LISPRO 100 UNIT/ML 3 ML VIAL SUBCUT SCH ×5 (12:25→21:48)
[2019-06-03] MEDS: AMLODIPINE BESYLATE 5 MG TABLET PO SCH ×2 (13:29→21:49)
[2019-06-03] MEDS: FAMOTIDINE 20 MG TABLET PO SCH (21:50)
[2019-06-03] MEDS: ATORVASTATIN CALCIUM 20 MG TABLET PO SCH (21:50)
[2019-06-03] MEDS ORDERED: INSULIN GLARGINE,HUM.REC.ANLOG 1,000 UNIT/10 ML VIAL SUBCUT SCH (22:00)
[2019-06-03] MEDS: CARVEDILOL 12.5 MG TABLET PO SCH (22:13)
[2019-06-03] MEDS: AMLODIPINE BESYLATE 10 MG TABLET PO SCH (22:58)
[2019-06-04] MEDS ORDERED: NORMAL SALINE 1000 ML 1,000 ML IV PRN (05:00)
[2019-06-04] MEDS ORDERED: EPOETIN ALFA-EPBX 10,000 UNIT in SYRINGE, DISPOSABLE, 1 EACH IV PRN (05:00)
[2019-06-04 05:20] LABS: HEMATOCRIT 28.4 % (36.0-47.0); HEMOGLOBIN 9.5 g/dL (12.0-15.5); MEAN CORPUSCULAR HEMOGLOBIN 30.6 pg (27.0-33.4); MEAN CORPUSCULAR HGB CONC 33.3 g/dL (32.0-36.0); MEAN CORPUSCULAR VOLUME 92 fl (80-97); PLATELET COUNT 305 10^3/uL (150-450); RED CELL DISTRIBUTION WIDTH 14.5 % (11.5-14.0); WHITE BLOOD COUNT 8.5 10^3/uL (4.0-10.5)
[2019-06-04 05:40] LABS: ANION GAP 15 (5-19); BLOOD UREA NITROGEN 43 mg/dL (7-20); CALCIUM 8.2 mg/dL (8.4-10.2); CARBON DIOXIDE 22 mmol/L (22-30); CHLORIDE 92 mmol/L (98-107); GLUCOSE 237 mg/dL (75-110); PHOSPHORUS 6.1 mg/dL (2.5-4.5); POTASSIUM 4.4 mmol/L (3.6-5.0)
[2019-06-04] MEDS: GABAPENTIN 100 MG CAPSULE PO SCH (05:44)
[2019-06-04] MEDS: HEPARIN SOD (PORCINE) 5,000 UNIT/ML 1 ML VIAL SUBCUT SCH ×3 (05:44→22:21)
[2019-06-04] MEDS: INSULIN LISPRO 100 UNIT/ML 3 ML VIAL SUBCUT SCH ×5 (07:26→22:20)
[2019-06-04] MEDS: DOCUSATE SODIUM 100 MG CAPSULE PO SCH ×2 (08:55→18:02)
[2019-06-04] MEDS: CARVEDILOL 12.5 MG TABLET PO SCH ×2 (10:58→22:21)
--- NOTE | 2019-06-04 17:40 | PDOC PROGRESS REPORT ---
Subjective Progress Note for:: 06/04/19 Subjective:: SAMIA HEALY is a 59 year old female past medical history of hypertension, diabetes, end-stage renal disease on hemodialysis, anemia of chronic disease, sent to ED by PCP after sudden onset left facial droop and dysarthria. Had a similar episode last week and was diagnosed with TIA. Stating that she went to PCP for routine checkup and suddenly felt left side of her face weak and numb on the left side. She is also complaining of feeling cold and thirsty with dry mouth and nauseous. Denies any shortness of breath, chest pain, abdominal pain, diarrhea or any constipation. Patient has history of frequent hospitalization for hypoglycemia/hyperglycemia coma and recently discharged on 05/29/2019 after being admitted for hyperglycemia. Patient is stating that she has been compliant with her meds and does not know why her sugars are out of control. In ED she was noted to be hyperglycemic, hypertensive and altered, CT head was obtained which was negative for any acute stroke, was started on nicardipine drip and insulin drip and ICU was consulted for admission. As per ICU attending she did not qualify ICU admission and she could be admitted in ICU. Hospitalist consulted for admission. 06/03/2019. No acute events overnight. On my encounter patient resting comfortably in bed, in no apparent distress, stating that her facial numbness, mouth dryness as well as thirst have resolved,complaining of bilateral lower extremity below the elbows pain. Denies any fever, chills, nausea, vomiting, diarrhea, constipation. Patient is scheduled for hemodialysis today. When asked about medication adherence she is stating that she has been adherent with her meds and she missed her insulin only on 06/02/2019 when she was hospitalized. 06/04/2018. No acute events overnight. Back to baseline. Was able to see patient this morning. Very pleasant. In no apparent distress. Alert oriented x3. Denies any fever, chills, nausea, vomiting, diarrhea, constipation or any urinary symptoms. Blood glucose level improving. Plan was to discharge patient post hemodialysis however patient was having low blood glucose level post dialysis Will observe for another night. DC tomorrow home. Reason For Visit: HYPEROSMOLAR STATE,HYPERTENSIVE EMERGENCY Physical Exam Vital Signs: Temp Pulse Resp BP Pulse Ox 97.7 F 65 16 126/50 H 98 06/04/19 11:00 06/04/19 14:00 06/04/19 12:21 06/04/19 11:00 06/04/19 12:21 Intake & Output 06/03/19 06/04/19 06/05/19 06:59 06:59 06:59 Intake Total 792 612 0 Output Total 0 1 Balance 792 611 0 Weight 66.4 kg 68.7 kg General appearance: PRESENT: no acute distress, well-developed, well-nourished Head exam: PRESENT: atraumatic, normocephalic Respiratory exam: PRESENT: clear to auscultation carlos. ABSENT: rales, rhonchi, wheezes Cardiovascular exam: PRESENT: RRR. ABSENT: diastolic murmur, rubs, systolic murmur Neurological exam: PRESENT: alert, awake, oriented to person, oriented to place, oriented to time, oriented to situation, CN II-XII grossly intact Results Laboratory Results: 06/04/19 04:28 06/04/19 04:28 06/04/19 06/04/19 04:28 04:28 WBC 8.5 RBC 3.10 L Hgb 9.5 L Hct 28.4 L MCV 92 MCH 30.6 MCHC 33.3 RDW 14.5 H Plt Count 305 Sodium 128.9 L Potassium 4.4 Chloride 92 L Carbon Dioxide 22 Anion Gap 15 BUN 43 H Creatinine 7.22 H Est GFR ( Amer) 7 L Glucose 237 H Calcium 8.2 L Phosphorus 6.1 H Magnesium 1.8 06/02/19 06/02/19 06/02/19 11:14 21:12 21:12 Creatine Kinase 47 CK-MB (CK-2) 1.34 Troponin I < 0.012 0.024 06/03/19 06/03/19 06/03/19 04:44 04:44 10:53 Creatine Kinase 55 61 CK-MB (CK-2) 1.61 Troponin I < 0.012 06/03/19 10:53 Creatine Kinase CK-MB (CK-2) 1.76 Troponin I < 0.012 Impressions: Chest X-Ray 06/02/19 10:45 IMPRESSION: Borderline heart size with minimal pulmonary edema. Head CT 06/02/19 10:45 IMPRESSION: NORMAL BRAIN CT WITHOUT CONTRAST. EVIDENCE OF ACUTE STROKE: NO. Assessment and Plan - Diagnosis (1) Type 2 diabetes mellitus Qualifiers: Diabetes mellitus intermediate project manager insulin use: with prison use Diabetes mellitus complication status: with kidney complications Diabetes mellitus complication detail: with chronic kidney disease Chronic kidney disease stage: on chronic dialysis Qualified Code(s): E11.22 - Type 2 diabetes mellitus with diabetic chronic kidney disease; N18.6 - End stage renal disease; Z79.4 - [facility] (current) use of insulin; Z99.2 - Dependence on renal dialysis Is this a current diagnosis for this admission?: Yes Plan: History of uncontrolled diabetes due noncompliance. Improving since admission. Home meds are: Tresiba 16 units every afternoon and lispro 9 units before meals. Contineu diabetic diet, Accu-Chek, hypoglycemia protocol, diabetic education, adjust insulin dosage as needed. (2) TIA (transient ischemic attack) Is this a current diagnosis for this admission?: Yes Plan: Likely secondary to hypertensive emergency. CT head negative for any acute abnormalities. Right facial numbness resolved. Negative for any new focal neurological deficits. Was admitted to telemetry, started on aspirin, statins and optimized blood pressure. PT OT consulted. No rehab recommended. PT at baseline. (3) Hypertension Qualifiers: Is this a current diagnosis for this admission?: Yes Plan: Normotensive. Euvolemic. Home meds are amlodipine 5 mg p.o. daily. Clonidine TD 0.3 mg every 24 hours. Restart home meds. Adjust meds as needed. PRN IV hydralazine. (4) Hyperosmolar non-ketotic state in patient with type 2 diabetes mellitus Is this a current diagnosis for this admission?: Yes Plan: Resolved. Fasting blood glucose 229. Questionable medication compliance. History of recurrent admission for hyperosmolar state. Serum glucose on admission 1440. Unfortunately not a candidate for volume resuscitation due to end-stage renal disease. Initially started on insulin drip, BMP every 4 hours, monitor vitals and status. DC insulin drip, switch to subcutaneous basal, prandial, sliding scale insulin. Diabetic diet, Accu-Chek, hypoglycemia protocol, diabetic education, adjust insulin dosage as needed. (5) End stage renal failure on dialysis Is this a current diagnosis for this admission?: Yes Plan: On hemodialysis TTS. Does not appear uremic. Bicarb WNL. Electrolytes WNL. Nephrology consulted. Hemodialysis today. Continue monitoring volume status and electrolytes. Replace electrolytes as needed. Nephrology consulted. Recommendations noted. (6) Hyponatremia with increased serum osmolality Is this a current diagnosis for this admission?: Yes Plan: Improving. Serum sodium 126. Pseudohyponatremia secondary to hyperosmolar state. Continue treating the underlying diabetes. Monitor for seizures. BMP tomorrow. (7) Hyperkalemia Is this a current diagnosis for this admission?: Yes Plan: Resolved. Was a started on Kayexalate. No acute EKG changes. Patient has end- stage renal disease. Continue supplemental Kayexalate, hemodialysis, renal diet. BMP tomorrow. (8) Hypertensive emergency Is this a current diagnosis for this admission?: Yes Plan: Resolved. Evidenced by altered mental status, patient end-stage renal disease renal function could not be uses a marker for hypertensive emergency. Presented with systolic blood pressure of >200 Was a started on nicardipine drip and ED and was transitioned to PRN hydralazine at home meds.
[2019-06-04 18:26] LABS: ANION GAP 14 (5-19); CALCIUM 8.6 mg/dL (8.4-10.2); CARBON DIOXIDE 27 mmol/L (22-30); CHLORIDE 97 mmol/L (98-107); GLUCOSE 106 mg/dL (75-110); POTASSIUM 3.6 mmol/L (3.6-5.0)
[2019-06-04 18:28] LABS: BLOOD UREA NITROGEN 18 mg/dL (7-20)
--- NOTE | 2019-06-04 18:32 | PDOC PROGRESS REPORT ---
Subjective Progress Note for:: 06/04/19 Subjective:: I am seeing the patient during dialysis this afternoon. She is looking much better and has no new complaints today. Her right hand swelling is much improved and almost resolved. She said she just placed a heating pad and raise her hand. Her bilateral arm numbness has resolved. She has no other neurologic symptoms. She is tolerating dialysis and she is hemodynamically stable with excellent blood pressures. Reason For Visit: HYPEROSMOLAR STATE,HYPERTENSIVE EMERGENCY Physical Exam Vital Signs: Temp Pulse Resp BP Pulse Ox 97.7 F 64 16 126/50 H 98 06/04/19 11:00 06/04/19 12:21 06/04/19 12:21 06/04/19 11:00 06/04/19 12:21 Intake & Output 06/03/19 06/04/19 06/05/19 06:59 06:59 06:59 Intake Total 792 612 0 Output Total 0 1 Balance 792 611 0 Weight 66.4 kg 68.7 kg Vitals during dialysis: Blood pressure of 123/56, heart rate of 64, blood flow rate of 450 mL/min and dialysate flow rate of 800 mL/min. Exam: General appearance: PRESENT: no acute distress, cooperative, well-developed, well-nourished Head exam: PRESENT: atraumatic, normocephalic; patient's face is less swollen Eye exam: PRESENT: conjunctiva pale, PERRLA. ABSENT: scleral icterus Neck exam: ABSENT: JVD Respiratory exam: PRESENT: Diminished breath sounds. ABSENT: crackles, rales, rhonchi, unlabored, wheezes Cardiovascular exam: PRESENT: Regular rate rhythm -+S1, +S2. ABSENT: diastolic murmur, systolic murmur GI/Abdominal exam: PRESENT: normal bowel sounds, soft. ABSENT: guarding, mass, tenderness Extremities exam: ABSENT: No edema; right hand swelling almost resolved Neurological exam: PRESENT: alert, awake, oriented to person, place and time. Skin exam: PRESENT: dry, warm, Results Laboratory Results: 06/04/19 04:28 06/04/19 04:28 06/04/19 06/04/19 04:28 04:28 WBC 8.5 RBC 3.10 L Hgb 9.5 L Hct 28.4 L MCV 92 MCH 30.6 MCHC 33.3 RDW 14.5 H Plt Count 305 Sodium 128.9 L Potassium 4.4 Chloride 92 L Carbon Dioxide 22 Anion Gap 15 BUN 43 H Creatinine 7.22 H Est GFR ( Amer) 7 L Glucose 237 H Calcium 8.2 L Phosphorus 6.1 H Magnesium 1.8 06/02/19 06/02/19 06/02/19 11:14 21:12 21:12 Creatine Kinase 47 CK-MB (CK-2) 1.34 Troponin I < 0.012 0.024 06/03/19 06/03/19 06/03/19 04:44 04:44 10:53 Creatine Kinase 55 61 CK-MB (CK-2) 1.61 Troponin I < 0.012 06/03/19 10:53 Creatine Kinase CK-MB (CK-2) 1.76 Troponin I < 0.012 Impressions: Chest X-Ray 06/02/19 10:45 IMPRESSION: Borderline heart size with minimal pulmonary edema. Head CT 06/02/19 10:45 IMPRESSION: NORMAL BRAIN CT WITHOUT CONTRAST. EVIDENCE OF ACUTE STROKE: NO. Assessment & Plan - Diagnosis (1) ESRD (end stage renal disease) Is this a current diagnosis for this admission?: Yes Plan: We will do dialysis today for 3 hours, using the patient's [AV fistula], with 2 potassium bath, blood flow rate of 450 mL per minute, dialysate flow rate of 800 mL per minute, ultrafiltration 2.5 to 3 L as tolerated, no heparin and Procrit with 10,000 units during dialysis intravenously. Patient is being continuously monitored throughout dialysis treatment. (2) TIA (transient ischemic attack) Is this a current diagnosis for this admission?: Yes Plan: Secondary to hypertensive emergency. Resolved. (3) Hypertensive emergency Is this a current diagnosis for this admission?: Yes Plan: Blood pressure not controlled with home blood pressure regimen. Advised compliance. (4) Hyperosmolar non-ketotic state in patient with type 2 diabetes mellitus Is this a current diagnosis for this admission?: Yes Plan: Management defer to hospitalist. (5) Anemia in chronic kidney disease (CKD) Is this a current diagnosis for this admission?: Yes Plan: Procrit to be given on dialysis as needed. (6) Hyponatremia with increased serum osmolality Is this a current diagnosis for this admission?: Yes Plan: Improving with corrected sodium now at 132. (7) Renal osteodystrophy Is this a current diagnosis for this admission?: Yes (8) Hypomagnesemia Is this a current diagnosis for this admission?: Yes Plan: Resolved. - Time Time with patient: 15-25 minutes
[2019-06-04] MEDS ORDERED: INSULIN GLARGINE,HUM.REC.ANLOG 1,000 UNIT/10 ML VIAL SUBCUT SCH (22:00)
[2019-06-04] MEDS: AMLODIPINE BESYLATE 5 MG TABLET PO SCH (22:21)
[2019-06-04] MEDS: ATORVASTATIN CALCIUM 20 MG TABLET PO SCH (22:21)
[2019-06-04] MEDS: FAMOTIDINE 20 MG TABLET PO SCH (22:21)
[2019-06-05 05:03] LABS: HEMATOCRIT 30.9 % (36.0-47.0); HEMOGLOBIN 10.2 g/dL (12.0-15.5); MEAN CORPUSCULAR HEMOGLOBIN 30.1 pg (27.0-33.4); MEAN CORPUSCULAR HGB CONC 33.1 g/dL (32.0-36.0); MEAN CORPUSCULAR VOLUME 91 fl (80-97); PLATELET COUNT 307 10^3/uL (150-450); RED CELL DISTRIBUTION WIDTH 14.9 % (11.5-14.0); WHITE BLOOD COUNT 7.6 10^3/uL (4.0-10.5)
[2019-06-05 05:20] LABS: ALBUMIN 3.2 g/dL (3.5-5.0); ALKALINE PHOSPHATASE 147 U/L (38-126); ANION GAP 14 (5-19); ASPARTATE AMINO TRANSFERASE 16 U/L (14-36); BILIRUBIN,DIRECT 0.4 mg/dL (0.0-0.4); BILIRUBIN,TOTAL 0.5 mg/dL (0.2-1.3); BLOOD UREA NITROGEN 23 mg/dL (7-20); CALCIUM 8.5 mg/dL (8.4-10.2); CARBON DIOXIDE 28 mmol/L (22-30); CHLORIDE 96 mmol/L (98-107); GLUCOSE 70 mg/dL (75-110); PHOSPHORUS 5.1 mg/dL (2.5-4.5); POTASSIUM 3.7 mmol/L (3.6-5.0); TOTAL PROTEIN 6.9 g/dL (6.3-8.2)
[2019-06-05] MEDS: HEPARIN SOD (PORCINE) 5,000 UNIT/ML 1 ML VIAL SUBCUT SCH (05:27)
[2019-06-05] MEDS: GABAPENTIN 100 MG CAPSULE PO SCH (05:28)
[2019-06-05] MEDS: ASPIRIN 81 MG TABLET, ENT COATED PO SCH ×2 (08:56→09:29)
[2019-06-05] MEDS: INSULIN LISPRO 100 UNIT/ML 3 ML VIAL SUBCUT SCH (09:12)
[2019-06-05] MEDS: DOCUSATE SODIUM 100 MG CAPSULE PO SCH (09:22)
[2019-06-05] MEDS: CARVEDILOL 12.5 MG TABLET PO SCH (09:23)
[2019-06-05 10:53] VITALS: BP 110/43
--- NOTE | 2019-06-06 15:59 | PDOC DISCHARGE SUMMARY ---
Impression - Admit/DC Date/PCP Admission Date/Primary Care Provider: 06/02/19 14:31 IRENE SAMANIEGO Discharge Date: 06/05/19 - Discharge Diagnosis (1) Hyperosmolar non-ketotic state in patient with type 2 diabetes mellitus Is this a current diagnosis for this admission?: Yes (2) Type 2 diabetes mellitus Is this a current diagnosis for this admission?: Yes (3) TIA (transient ischemic attack) Is this a current diagnosis for this admission?: Yes (4) Hypertension Is this a current diagnosis for this admission?: Yes (5) End stage renal failure on dialysis Is this a current diagnosis for this admission?: Yes (6) Hyponatremia with increased serum osmolality Is this a current diagnosis for this admission?: Yes (7) Hyperkalemia Is this a current diagnosis for this admission?: Yes (8) Hypertensive emergency Is this a current diagnosis for this admission?: Yes - Additional Information Resuscitation Status: Full Code Discharge Diet: As Tolerated, Diabetic Discharge Activity: Activity As Tolerated Referrals: IRENE SAMANIEGO MD [Primary Care Provider] - 06/15/19 5:00 pm Prescriptions: Carvedilol [Coreg 12.5 mg Tablet] 12.5 mg PO Q12 60 Days #60 tablet Insulin Degludec [Tresiba] 16 unit SQ QHS 3 Days #1 vial Home Medications: Amlodipine Besylate [Norvasc 5 mg Tablet] 5 mg PO QHS 05/24/19 Atorvastatin Calcium [Lipitor 20 mg Tablet] 20 mg PO QHS 05/24/19 Clonidine [Catapres-Tts 3 (0.3 mg/24 Hr) Transderm Patch] 1 patch TD MO@1000 05/24/19 Ferric Citrate [Auryxia] 630 mg PO TID 05/24/19 Gabapentin [Neurontin 100 mg Capsule] 200 mg PO Q8 MDD 6 CAPS 05/24/19 Insulin Aspart [Novolog] 9 unit SQ AC MDD 50 UNITS 05/24/19 Aspirin [Ecotrin 81 mg EC Tablet] 81 mg PO DAILY 06/02/19 Carvedilol [Coreg 12.5 mg Tablet] 12.5 mg PO Q12 60 Days #60 tablet 06/04/19 Insulin Degludec [Tresiba] 16 unit SQ QHS 3 Days #1 vial 06/05/19 History of Present Illiness History of Present Illness: SAMIA HEALY is a 59 year old female past medical history of hypertension, diabetes, end-stage renal disease on hemodialysis, anemia of chronic disease, sent to ED by PCP after sudden onset left facial droop and dysarthria. Had a similar episode last week and was diagnosed with TIA. Stating that she went to PCP for routine checkup and suddenly felt left side of her face weak and numb on the left side. She is also complaining of feeling cold and thirsty with dry mouth and nauseous. Denies any shortness of breath, chest pain, abdominal pain, diarrhea or any constipation. Patient has history of frequent hospitalization for hypoglycemia/hyperglycemia coma and recently discharged on 05/29/2019 after being admitted for hyperglycemia. Patient is stating that she has been compliant with her meds and does not know why her sugars are out of control. In ED she was noted to be hyperglycemic, hypertensive and altered, CT head was obtained which was negative for any acute stroke, was started on nicardipine drip and insulin drip and ICU was consulted for admission. As per ICU attending she did not qualify ICU admission and she could be admitted in ICU. Hospitalist consulted for admission. Hospital Course Hospital Course: (1) Hyperosmolar non-ketotic state in patient with type 2 diabetes mellitus Resolved. Questionable medication compliance. History of recurrent admission for hyperosmolar state. Serum glucose on admission 1440. Unfortunately not a candidate for volume resuscitation due to end-stage renal disease. Initially started on insulin drip, BMP every 4 hours, monitor vitals and status. DCd insulin drip, switched to subcutaneous basal, prandial, sliding scale insulin. Was started on diabetic diet, Accu-Chek, hypoglycemia protocol, diabetic education. (2) TIA (transient ischemic attack) Likely secondary to hypertensive emergency. CT head negative for any acute abnormalities. Right facial numbness resolved. Negative for any new focal neurological deficits. Was admitted to telemetry, started on aspirin, statins and optimized blood pressure. PT OT consulted. No rehab recommended. PT at baseline. (3) Hypertension Normotensive. Euvolemic. Home meds are amlodipine 5 mg p.o. daily. Clonidine TD 0.3 mg every 24 hours. Restart home meds. Adjust meds as needed. PRN IV hydralazine. Was discharged to restart home meds plus clonidine 12.5 mg p.o. twice daily. (4) Type 2 diabetes mellitus History of uncontrolled diabetes due noncompliance. Home meds are: Tresiba 16 units every afternoon and lispro 9 units before meals. Continued on diabetic diet, Accu-Chek, hypoglycemia protocol, diabetic education, adjust insulin dosage as needed. (5) End stage renal failure on dialysis On hemodialysis TTS. Nephrology consulted. Hemodialysis today. Continued monitoring volume status and electrolytes. Replace electrolytes as needed. (6) Hyponatremia with increased serum osmolality Resovled. Pseudohyponatremia secondary to hyperosmolar state. Continue treating the underlying diabetes. Monitor for seizures. BMP tomorrow. (7) Hyperkalemia Resolved. Was a started on Kayexalate. No acute EKG changes. Patient has end- stage renal disease. Continue supplemental Kayexalate, hemodialysis, renal diet and HD Daily BMP (8) Hypertensive emergency Resolved. Evidenced by altered mental status, patient end-stage renal disease renal function could not be uses a marker for hypertensive emergency. Presented with systolic blood pressure of >200 Was a started on nicardipine drip and ED and was transitioned to PRN hydralazine at home meds. Physical Exam Vital Signs: Temp Pulse Resp BP Pulse Ox 97.5 F 62 16 110/43 L 98 06/05/19 10:44 06/05/19 10:44 06/05/19 10:44 06/05/19 10:44 06/05/19 10:44 Intake & Output 06/05/19 06/06/19 06/07/19 06:59 06:59 06:59 Intake Total 462 Output Total 3230 Balance -2768 Weight 63.4 kg General appearance: PRESENT: no acute distress, well-developed, well-nourished Head exam: PRESENT: atraumatic, normocephalic Respiratory exam: PRESENT: clear to auscultation carlos. ABSENT: rales, rhonchi, wheezes Cardiovascular exam: PRESENT: RRR. ABSENT: diastolic murmur, rubs, systolic mur mur GI/Abdominal exam: PRESENT: normal bowel sounds, soft. ABSENT: distended, guarding, mass, organolmegaly, rebound, tenderness Neurological exam: PRESENT: alert, awake, oriented to person, oriented to place, oriented to time, oriented to situation, CN II-XII grossly intact. ABSENT: motor sensory deficit Results Laboratory Results: WBC 7.6 10^3/uL (4.0-10.5) 06/05/19 04:36 RBC 3.40 10^6/uL (3.72-5.28) L 06/05/19 04:36 Hgb 10.2 g/dL (12.0-15.5) L 06/05/19 04:36 Hct 30.9 % (36.0-47.0) L 06/05/19 04:36 MCV 91 fl (80-97) 06/05/19 04:36 MCH 30.1 pg (27.0-33.4) 06/05/19 04:36 MCHC 33.1 g/dL (32.0-36.0) 06/05/19 04:36 RDW 14.9 % (11.5-14.0) H 06/05/19 04:36 Plt Count 307 10^3/uL (150-450) 06/05/19 04:36 Lymph % (Auto) 11.7 % (13-45) L 06/02/19 12:13 [place] % (Auto) 8.2 % (3-13) 06/02/19 12:13 Eos % (Auto) 0.7 % (0-6) 06/02/19 12:13 Baso % (Auto) 1.3 % (0-2) 06/02/19 12:13 Absolute Neuts (auto) 4.6 10^3/uL (1.7-8.2) 06/02/19 12:13 Absolute Lymphs (auto) 0.7 10^3/uL (0.5-4.7) 06/02/19 12:13 Absolute Monos (auto) 0.5 10^3/uL (0.1-1.4) 06/02/19 12:13 Absolute Eos (auto) 0.0 10^3/uL (0.0-0.6) 06/02/19 12:13 Absolute Basos (auto) 0.1 10^3/uL (0.0-0.2) 06/02/19 12:13 Seg Neutrophils % 78.1 % (42-78) H 06/02/19 12:13 Platelet Estimate Cancelled 06/02/19 11:14 PT 16.6 SEC (11.4-15.4) H 06/02/19 11:14 INR 1.33 06/02/19 11:14 Sodium 138.1 mmol/L (137-145) 06/05/19 04:36 Potassium 3.7 mmol/L (3.6-5.0) 06/05/19 04:36 Chloride 96 mmol/L (98-107) L 06/05/19 04:36 Carbon Dioxide 28 mmol/L (22-30) 06/05/19 04:36 Anion Gap 14 (5-19) 06/05/19 04:36 BUN 23 mg/dL (7-20) H 06/05/19 04:36 Creatinine 4.54 mg/dL (0.52-1.25) H 06/05/19 04:36 Est GFR ( Amer) 12 (>60) L 06/05/19 04:36 Est GFR (MDRD) Non-Af 10 (>60) L 06/05/19 04:36 Glucose 70 mg/dL (75-110) L 06/05/19 04:36 POC Glucose 113 mg/dL (70-110) H 06/05/19 07:42 Calcium 8.5 mg/dL (8.4-10.2) 06/05/19 04:36 Phosphorus 5.1 mg/dL (2.5-4.5) H 06/05/19 04:36 Magnesium 1.9 mg/dL (1.6-2.3) 06/05/19 04:36 Total Bilirubin 0.5 mg/dL (0.2-1.3) 06/05/19 04:36 Direct Bilirubin 0.4 mg/dL (0.0-0.4) 06/05/19 04:36 Neonat Total Bilirubin Not Reportable 06/05/19 04:36 Neonat Direct Bilirubin Not Reportable 06/05/19 04:36 Neonat Indirect Bili Not Reportable 06/05/19 04:36 AST 16 U/L (14-36) 06/05/19 04:36 ALT 15 U/L (<35) 06/05/19 04:36 Alkaline Phosphatase 147 U/L (38-126) H 06/05/19 04:36 Creatine Kinase 61 U/L (30-135) 06/03/19 10:53 CK-MB (CK-2) 1.76 ng/mL (<4.55) 06/03/19 10:53 Troponin I < 0.012 ng/mL 06/03/19 10:53 Total Protein 6.9 g/dL (6.3-8.2) 06/05/19 04:36 Albumin 3.2 g/dL (3.5-5.0) L 06/05/19 04:36 Urine Color YELLOW 06/02/19 11:14 Urine Appearance SLIGHTLY-CLOUDY 06/02/19 11:14 Urine pH 8.0 (5.0-9.0) 06/02/19 11:14 Ur Specific [place] 1.020 06/02/19 11:14 Urine Protein >=500 mg/dL (NEGATIVE) H 06/02/19 11:14 Urine Glucose (UA) >=500 mg/dL (NEGATIVE) H 06/02/19 11:14 Urine Ketones NEGATIVE mg/dL (NEGATIVE) 06/02/19 11:14 Urine Blood SMALL (NEGATIVE) H 06/02/19 11:14 Urine Nitrite NEGATIVE (NEGATIVE) 06/02/19 11:14 Urine Bilirubin NEGATIVE (NEGATIVE) 06/02/19 11:14 Urine Urobilinogen NEGATIVE mg/dL (<2.0) 06/02/19 11:14 Ur Leukocyte Esterase NEGATIVE (NEGATIVE) 06/02/19 11:14 Urine WBC (Auto) 4 /HPF 06/02/19 11:14 Urine RBC (Auto) 4 /HPF 06/02/19 11:14 Squamous Epi Cells Auto 5 /HPF 06/02/19 11:14 U Non-Squamous Epis Auto 2 /HPF 06/02/19 11:14 Urine Ascorbic Acid NEGATIVE (NEGATIVE) 06/02/19 11:14 Urine Opiates Screen NEGATIVE 06/02/19 11:14 Urine Methadone Screen NEGATIVE 06/02/19 11:14 Ur Barbiturates Screen NEGATIVE 06/02/19 11:14 Ur Phencyclidine Scrn NEGATIVE 06/02/19 11:14 Ur Amphetamines Screen NEGATIVE 06/02/19 11:14 U Benzodiazepines Scrn NEGATIVE 06/02/19 11:14 Urine Cocaine Screen NEGATIVE 06/02/19 11:14 U Marijuana (THC) Screen NEGATIVE 06/02/19 11:14 Slides for Path Review Cancelled 06/02/19 11:14 1106/02/19 06/03/19 11:14 21:12 04:44 CK-MB (CK-2) 1.34 1.61 Troponin I < 0.012 0.024 < 0.012 06/03/19 10:53 CK-MB (CK-2) 1.76 Troponin I < 0.012 Impressions: Chest X-Ray 06/02/19 10:45 IMPRESSION: Borderline heart size with minimal pulmonary edema. Head CT 06/02/19 10:45 IMPRESSION: NORMAL BRAIN CT WITHOUT CONTRAST. EVIDENCE OF ACUTE STROKE: NO. Stroke Is this a Stroke Patient?: No Acute Heart Failure - Is this a Heart Failure Patient?: No
[2019-06-07] MEDS ORDERED: CLONIDINE 0.3 MG/24 HR PATCH.TDWK TD SCH (10:00)
== END 2019-06-05 11:00 | disposition home or self-care (01) | DRG 637 ==
LOC: ER 10:40 → EH 14:31 → 3N 17:15
PROVIDERS: ADMIT Internal Medicine; ATTEND Internal Medicine
DX: E11.00 Type 2 diabetes mellitus with hyperosmolarity without nonketotic hyperglycemic-hyperosmolar coma (NKHHC) (principal); N18.6 End stage renal disease; G45.9 Transient cerebral ischemic attack, unspecified; I12.0 Hypertensive chronic kidney disease with stage 5 chronic kidney disease or end stage renal disease; E87.1 Hypo-osmolality and hyponatremia; I16.1 Hypertensive emergency; E11.22 Type 2 diabetes mellitus with diabetic chronic kidney disease; D63.1 Anemia in chronic kidney disease; R29.810 Facial weakness; R47.1 Dysarthria and anarthria; E87.5 Hyperkalemia; N25.0 Renal osteodystrophy; E83.42 Hypomagnesemia; R40.2142 Coma scale, eyes open, spontaneous, at arrival to emergency department; R40.2252 Coma scale, best verbal response, oriented, at arrival to emergency department; R40.2362 Coma scale, best motor response, obeys commands, at arrival to emergency department; Z79.4 Long term (current) use of insulin; Z91.14 Patient's other noncompliance with medication regimen; Z99.2 Dependence on renal dialysis; Z90.49 Acquired absence of other specified parts of digestive tract; Z87.891 Personal history of nicotine dependence; Z83.3 Family history of diabetes mellitus; Z82.49 Family history of ischemic heart disease and other diseases of the circulatory system; Z79.899 Other long term (current) drug therapy; Z79.82 Long term (current) use of aspirin; Z88.0 Allergy status to penicillin; Z88.2 Allergy status to sulfonamides; Z88.1 Allergy status to other antibiotic agents; Z91.013 Allergy to seafood; Z88.5 Allergy status to narcotic agent
CPT/HCPCS: 36415; 70450; 71045; 80048; 80053; 80307; 81001; 82550; 82553; 82962; 83735; 84100; 84484; 85025; 85027; 85610; 93005; 93010; 96365; 96366; 99291; J1644; J1815; J2270; J3490; J7030; J7050; Q5105

== ENCOUNTER 2019-07-21 23:37 | Inpatient (IN) | payer MEDICARE, MEDICAID ==
--- NOTE | 2019-07-22 00:24 | ER Document Report ---
ED General - General Chief Complaint: Shortness Of Breath Stated Complaint: DIFFICULTY BREATHING Time Seen by Provider: 07/22/19 00:13 Primary Care Provider: IRENE SAMANIEGO MD [Primary Care Provider] - Follow up as needed TRAVEL OUTSIDE OF THE [place] IN LAST 30 DAYS: No - HPI Notes: Alix del real is a [id number]-female presenting with a chief complaint of difficulty breathing and generalized weakness. Patient has end-stage renal disease and normally receives dialysis Friday. Both of her sessions were cut in half this week because she had a flulike illness and was having vomiting and diarrhea could not sit through the session. Increasing shortness of breath tonight. Patient also is diabetic and her blood sugars reading "high" at home. Nausea today and watery stools. No fever or chills. She feels generally weak. Patient has a known history of diabetes mellitus type 2 on insulin. Patient has a history of hypertension. Difficulty taking oral medications at this time due to her GI illness. - Related Data Allergies/Adverse Reactions: Penicillins Allergy (Severe, Verified 07/22/19 00:42) rash ciprofloxacin [From Cipro] Allergy (Verified 07/22/19 00:42) shellfish derived Allergy (Verified 07/22/19 00:42) Swelling of tongue oxycodone [From Percocet] Adverse Reaction (Verified 07/22/19 00:42) Past Medical History - General Information source: Patient - Social History Smoking Status: Former Smoker Family History: DM, Hypertension Patient has suicidal ideation: No Patient has homicidal ideation: No - Past Medical History Cardiac Medical History: Reports: Hx Hypertension Denies: Hx Atrial Fibrillation, Hx Congestive Heart Failure, Hx Coronary Artery Disease, Hx Heart Attack Pulmonary Medical History: Reports: Hx Pneumonia Denies: Hx Asthma, Hx Bronchitis, Hx COPD Neurological Medical History: Denies: Hx Cerebrovascular Accident, Hx Migraine, Hx Seizures Endocrine Medical History: Reports: Hx Diabetes Mellitus Type 2. Denies: Hx Diabetes Mellitus Type 1, Hx Hyperthyroidism, Hx Hypothyroidism Renal/ Medical History: Reports: Hx End Stage Renal Disease, Hx Hemodialysis. Denies: Hx Peritoneal Dialysis GI Medical History: Denies: Hx Cirrhosis, Hx Crohn's Disease, Hx Hepatitis, Hx Ulcerative Colitis Musculoskeletal Medical History: Denies Hx Arthritis, Denies Hx Fibromyalgia Skin Medical History: Denies Hx Eczema, Denies Hx Psoriasis Psychiatric Medical History: Denies: Hx Depression Infectious Medical History: Denies: Hx Hepatitis Past Surgical History: Reports: Hx Appendectomy, Hx Cholecystectomy, Hx Orthopedic Surgery - feet, Hx Tubal Ligation, Hx Vascular Surgery - fistula upper arm (left) Done at [facility], Other - Hemodialysis vascular access left upper extremity - Immunizations Hx Diphtheria, Pertussis, Tetanus Vaccination: No Hx Pneumococcal Vaccination: 07/21/16 Review of Systems - Review of Systems Notes: Constitutional: Low-grade fever. HENT: Negative for sore throat. Eyes: Negative for visual changes. Cardiovascular: Negative for chest pain. Respiratory: As per HPI. Gastrointestinal: As per HPI. Genitourinary: Anuric at baseline. Musculoskeletal: Negative for back pain. Skin: Negative for rash. Neurological: Negative for headaches, focal weakness or numbness. 10 point ROS negative except as marked above and in HPI. Physical Exam - Vital signs Vitals: Temp Pulse Resp BP Pulse Ox 98.4 F 93 27 H 208/68 H 88 L 07/21/19 23:37 07/21/19 23:37 07/21/19 23:37 07/21/19 23:37 07/21/19 23:37 - Notes Notes: GENERAL: female approximately stated age appearing dyspneic in moderate distress. SKIN: Good turgor no rashes. HEAD: Normocephalic atraumatic. EYES: PERRLA. EOMI. Conjunctivae pale and sclerae clear. EARS: CANALS AND TMS CLEAR. NOSE: CLEAR. MOUTH: Moist mucosa. Good dentition. No stridor or edema. No drooling. NECK: Supple. No masses or thyromegaly. No adenopathy. Carotids 2+ without bruits. No JVD. BACK: Symmetrical without tenderness. CHEST: Tachypneic with rales and faint wheezes lower two thirds of both lung boone. Moderate use of accessory muscles. HEART: Regular rhythm. No murmur gallop or rub. ABDOMEN: Soft nontender without masses, organomegaly or rebound. Bowel sounds normally active. No bruits. GENITALIA: Deferred. EXTREMITIES: Bilateral 1+ pretibial edema. No calf tenderness. Cap refill less than 1.5 seconds. Dorsalis pedis and posterior tibial pulses 3+ and symmetrical. NEUROLOGICAL: GCS 15. Alert and oriented x3. Fluent speech. Cranial nerves II through XII intact. Sensorimotor and cerebellar normal. Normal tone. PSYCHIATRIC: Appropriate affect. Course - Re-evaluation Re-evalutation: 07/22/19 00:24 Patient appears to be fluid overloaded and in respiratory failure. We will obtain chest x-ray and appropriate labs and go ahead and start the patient on BiPAP. We will also obtain influenza screen. 07/22/19 03:34 Respiratory status has initially been stabilized with BiPAP. Patient is in a hyperosmolar state with a blood glucose in excess of 700. IV insulin infusion has been ordered. We will consult Dr. Juan Gutierres from nephrology regarding dialysis and anticipate admission to medicine service by on-call hospitalist thereafter. 07/22/19 03:43 Dr. Yadiel Villegas the on-call hospitalist is excepted for IMCU admission - Vital Signs Vital signs: Temp Pulse Resp BP Pulse Ox 98.4 F 93 17 185/67 H 100 07/21/19 23:37 07/21/19 23:37 07/22/19 03:01 07/22/19 03:01 07/22/19 03:01 - Laboratory Result Diagrams: 07/21/19 23:59 07/21/19 23:59 Laboratory results interpreted by me: 07/21/19 07/21/19 07/21/19 23:59 23:59 23:59 RBC 3.60 L Hgb 10.8 L Hct 34.8 L MCHC 31.1 L RDW 17.4 H Lymph % (Auto) 7.6 L Absolute Neuts (auto) 8.5 H Seg Neutrophils % 85.7 H Carbonic Acid ABG pH ABG pCO2 ABG HCO3 ABG Total CO2 Sodium 133.5 L Chloride 93 L BUN 35 H Creatinine 3.34 H Est GFR ( Amer) 17 L Est GFR (MDRD) Non-Af 14 L Glucose 777 H* Direct Bilirubin 0.5 H Alkaline Phosphatase 192 H NT-Pro-B Natriuret Pep 36631 H Albumin 3.4 L 07/22/19 02:18 RBC Hgb Hct MCHC RDW Lymph % (Auto) Absolute Neuts (auto) Seg Neutrophils % Carbonic Acid 1.57 H ABG pH 7.31 L ABG pCO2 52.3 H ABG HCO3 25.8 H ABG Total CO2 27.4 H Sodium Chloride BUN Creatinine Est GFR ( Amer) Est GFR (MDRD) Non-Af Glucose Direct Bilirubin Alkaline Phosphatase NT-Pro-B Natriuret Pep Albumin Critical Care Note - Critical Care Note Total time excluding time spent on procedures (mins): 105 Comments: BiPAP initiated Patient been started on IV insulin infusion. Discharge - Discharge Clinical Impression: HYPEROSMOLAR STATED DUE DIABETES MELLITUS, Hypertensive emergency Acute respiratory failure Qualifiers: Respiratory failure complication: hypoxia and hypercapnia Qualified Code(s): J96.01 - Acute respiratory failure with hypoxia; J96.02 - Acute respiratory failure with hypercapnia Volume overload Qualifiers: Hypervolemia type: other Qualified Code(s): E87.79 - Other fluid overload Condition: Serious Disposition: ADMITTED INPATIENT Admitting Provider: Bakari (Hospitalist) Unit Admitted: IMCU Referrals: IRENE SAMANIEGO MD [Primary Care Provider] - Follow up as needed
[2019-07-22 00:27] LABS: ABSOLUTE BASOPHILS # (AUTO) 0.1 10^3/uL (0.0-0.2); ABSOLUTE EOSINOPHILS # (AUTO) 0.1 10^3/uL (0.0-0.6); ABSOLUTE MONOCYTES (AUTO) 0.5 10^3/uL (0.1-1.4); TOTAL CELLS COUNTED % (AUTO) 100 %
[2019-07-22] MEDS ORDERED: NITROGLYCERIN 2% OINTMENT 1 GM PACKET TP ONE (00:34)
[2019-07-22 00:44] LABS: ALBUMIN 3.4 g/dL (3.5-5.0); ALKALINE PHOSPHATASE 192 U/L (38-126); ANION GAP 15 (5-19); ASPARTATE AMINO TRANSFERASE 14 U/L (14-36); BILIRUBIN,DIRECT 0.5 mg/dL (0.0-0.4); BILIRUBIN,TOTAL 0.6 mg/dL (0.2-1.3); BLOOD UREA NITROGEN 35 mg/dL (7-20); CALCIUM 8.4 mg/dL (8.4-10.2); CARBON DIOXIDE 26 mmol/L (22-30); CHLORIDE 93 mmol/L (98-107); CREATINE KINASE 77 U/L (30-135); POTASSIUM 3.8 mmol/L (3.6-5.0); TOTAL PROTEIN 6.8 g/dL (6.3-8.2)
[2019-07-22 00:46] LABS: ABSOLUTE LYMPHOCYTES (AUTO) 0.8 10^3/uL (0.5-4.7); ABSOLUTE NEUT (AUTO) 8.5 10^3/uL (1.7-8.2); EOSINOPHILS % (AUTO) 1.1 % (0-6); HEMATOCRIT 34.8 % (36.0-47.0); HEMOGLOBIN 10.8 g/dL (12.0-15.5); LYMPHOCYTES % (AUTO) 7.6 % (13-45); MEAN CORPUSCULAR HEMOGLOBIN 30.1 pg (27.0-33.4); MEAN CORPUSCULAR HGB CONC 31.1 g/dL (32.0-36.0); MEAN CORPUSCULAR VOLUME 97 fl (80-97); MONOCYTES % (AUTO) 4.6 % (3-13); PLATELET COUNT 257 10^3/uL (150-450); RED CELL DISTRIBUTION WIDTH 17.4 % (11.5-14.0); SEGMENTED NEUTROPHILS % (AUTO) 85.7 % (42-78); WHITE BLOOD COUNT 9.9 10^3/uL (4.0-10.5)
[2019-07-22 00:55] LABS: TROPONIN I 0.014 ng/mL
[2019-07-22 00:56] LABS: GLUCOSE 777 mg/dL (75-110)
[2019-07-22 01:07] LABS: A TYPE INFLUENZA AG NEGATIVE (NEGATIVE); B INFLUENZA AG NEGATIVE (NEGATIVE)
--- NOTE | 2019-07-22 01:46 | RADIOLOGY REPORT (SQ) ---
EXAM: XR CHEST 1 VIEW CLINICAL INDICATION: 59-year-old female with shortness of breath. TECHNIQUE: Single view, AP portable chest was obtained. COMPARISON: 06/02/2019. FINDINGS: Stable enlarged cardiac and mediastinal silhouette. Heart size is enlarged. Mild prominence of the central pulmonary vasculature. Low lung volumes. Opacification of the bilateral lung bases, LEFT greater than RIGHT suggest small bilateral pleural effusion. On the LEFT there appears to be progression of opacification raising the possibility of edema versus superimposed consolidation/infectious process. No gross pneumothoraces. LEFT subclavian vascular stents again noted. The visualized bones are within normal limits. IMPRESSION: 1. Stable mildly enlarged heart size. 2. Mildly prominent central pulmonary vasculature. 3. Bilateral small pleural effusion. 4. Interval worsening of LEFT lower lobe opacification raising the possibility of edema versus superimposed consolidation/infectious process. Please correlate with patient clinical findings and follow-up for resolution.
[2019-07-22 02:25] LABS: ARTERIAL BLOOD BASE EXCESS -0.9 mmol/L; ARTERIAL BLOOD H2CO3 1.57 mmol/L (1.05-1.35); ARTERIAL BLOOD HCO3 25.8 mmol/L (20-24); ARTERIAL BLOOD O2 SATURATION 96.5 % (94-98); ARTERIAL BLOOD PCO2 52.3 mmHg (35-45); ARTERIAL BLOOD PH 7.31 (7.35-7.45); ARTERIAL BLOOD PO2 93.9 mmHg (80-100); ARTERIAL BLOOD TOTAL CO2 27.4 mmol/L (21-25)
[2019-07-22 02:34] LABS: ARTERIAL BLOOD FIO2 40%
[2019-07-22] MEDS ORDERED: NORMAL SALINE 100 ML with INSULIN REGULAR, HUMAN 100 UNIT IV PRN ×2 (03:25)
[2019-07-22] MEDS ORDERED: HYDRALAZINE HCL INJ/PF 20 MG/1 ML SDV IV PRN (03:45)
[2019-07-22] MEDS ORDERED: DEXTROSE 50%-WATER 25 GM/50 ML DISP.SYRIN IV PRN ×2 (03:47)
[2019-07-22] MEDS ORDERED: GLUCAGON,HUMAN RECOMB 1 MG INJ IM PRN (03:47)
[2019-07-22] MEDS ORDERED: DEXTROSE 40% GEL 15 GM TUBE PO PRN ×2 (03:47)
[2019-07-22] MEDS ORDERED: IPRATROPIUM/ALBUTEROL 0.5-2.5 MG/3 ML AMPUL NEB PRN (03:48)
[2019-07-22] MEDS ORDERED: ONDANSETRON HCL INJ/PF 4 MG/2 ML SDV IV PRN (03:48)
[2019-07-22] MEDS ORDERED: MAGNESIUM HYDROXIDE SUSP 30 ML UDCUP PO PRN (03:48)
[2019-07-22] MEDS ORDERED: ACETAMINOPHEN 325 MG TABLET PO PRN (03:48)
[2019-07-22] MEDS: INSULIN REG, HUMAN 100 UNIT/ML 3 ML VIAL (PYX) IV ONE ×2 (03:58→05:39)
[2019-07-22] MEDS: NORMAL SALINE 100 ML with INSULIN REGULAR, HUMAN 100 UNIT IV PRN ×2 (04:00)
[2019-07-22] MEDS: CARVEDILOL 12.5 MG TABLET PO SCH ×3 (04:09→21:25)
[2019-07-22] MEDS: HYDRALAZINE HCL 50 MG TABLET PO SCH ×2 (04:09→05:50)
[2019-07-22] MEDS: CLONIDINE HCL 0.2 MG TABLET PO SCH ×2 (04:09→05:51)
[2019-07-22] MEDS: AMLODIPINE BESYLATE 10 MG TABLET PO SCH ×2 (04:09→10:13)
--- NOTE | 2019-07-22 05:37 | PDOC H&P ---
History of Present Illness Admission Date/PCP: 07/22/19 04:18 IRENE SAMANIEGO Patient complains of: Shortness of breath History of Present Illness: SAMIA HEALY is a 59 year old female with a past medical history of anemia of chronic disease, hypertension, anuric end-stage renal failure on hemodialysis Friday who presents with shortness of breath, hyperglycemic hyperosmolarity and hypertensive urgency. Her dialysis sessions were cut in baz[place] this week because she had a flulike illness with nausea and diarrhea. She denies medication or lifestyle indiscretion but is also known to be chronically noncompliant. Work-up reveals hypertensive urgency, pulmonary vascular congestion, pulmonary edema, metabolic acidosis. She started on transdermal nitro, BiPAP and referred to the hospitalist for admission. Patient admits feeling somewhat better. Past Medical History Cardiac Medical History: Reports: Hypertension Denies: Atrial Fibrillation, Congestive Heart Failure, Coronary Artery Disease, Myocardial Infarction Pulmonary Medical History: Reports: Pneumonia Denies: Asthma, Bronchitis, Chronic Obstructive Pulmonary Disease (COPD) Neurological Medical History: Denies: Migraine, Seizures Endocrine Medical History: Reports: Diabetes Mellitus Type 2 Denies: Diabetes Mellitus Type 1, Hyperthyroidism, Hypothyroidism Renal/ Medical History: Reports: End Stage Renal Disease GI Medical History: Denies: Cirrhosis, Crohn's Disease, Hepatitis, Ulcerative Colitis Musculoskeltal Medical History: Denies: Arthritis, Fibromyalgia Skin Medical History: Denies: Eczema, Psoriasis Psychiatric Medical History: Denies: Depression Hematology: Denies: Anemia, Bleeding Tendencies Past Surgical History Past Surgical History: Reports: Appendectomy, Cholecystectomy, Orthopedic Surgery - feet, Tubal Ligation, Vascular Surgery - fistula upper arm (left) Done at [facility], Other - Hemodialysis vascular access left upper extremity Social History Information Source: Patient, H Records Smoking Status: Former Smoker Frequency of Alcohol Use: None Hx Recreational Drug Use: No Drugs: None Hx Prescription Drug Abuse: No - Advance Directive Resuscitation Status: Full Code Family History Family History: DM, Hypertension Parental Family History Reviewed: Yes Children Family History Reviewed: Yes Sibling(s) Family History Reviewed.: Yes Medication/Allergy Home Medications: Amlodipine Besylate [Norvasc 5 mg Tablet] 5 mg PO QHS 05/24/19 Atorvastatin Calcium [Lipitor 20 mg Tablet] 20 mg PO QHS 05/24/19 Clonidine [Catapres-Tts 3 (0.3 mg/24 Hr) Transderm Patch] 1 patch TD MO@1000 05/24/19 Ferric Citrate [Auryxia] 630 mg PO TID 05/24/19 Gabapentin [Neurontin 100 mg Capsule] 200 mg PO Q8 MDD 6 CAPS 05/24/19 Insulin Aspart [Novolog] 9 unit SQ AC MDD 50 UNITS 05/24/19 Aspirin [Ecotrin 81 mg EC Tablet] 81 mg PO DAILY 06/02/19 Carvedilol [Coreg 12.5 mg Tablet] 12.5 mg PO Q12 60 Days #60 tablet 06/04/19 Insulin Degludec [Tresiba] 16 unit SQ QHS 3 Days #1 vial 06/05/19 Allergies/Adverse Reactions: Penicillins Allergy (Severe, Verified 07/22/19 00:42) rash ciprofloxacin [From Cipro] Allergy (Verified 07/22/19 00:42) shellfish derived Allergy (Verified 07/22/19 00:42) Swelling of tongue oxycodone [From Percocet] Adverse Reaction (Verified 07/22/19 00:42) Review of Systems Constitutional: PRESENT: as per HPI, anorexia, fatigue, weakness Eyes: PRESENT: as per HPI Ears: ABSENT: hearing changes Cardiovascular: PRESENT: edema. ABSENT: chest pain, dyspnea on exertion, orthropnea, palpitations Respiratory: PRESENT: as per HPI, cough, dyspnea. ABSENT: hemoptysis, sputum Gastrointestinal: PRESENT: as per HPI. ABSENT: abdominal pain, bloating, coffee ground emesis, diarrhea, nausea, vomiting Genitourinary: ABSENT: dysuria, hematuria Musculoskeletal: ABSENT: joint swelling Integumentary: ABSENT: rash, wounds Neurological: ABSENT: abnormal gait, abnormal speech, confusion, dizziness, focal weakness, syncope Psychiatric: ABSENT: anxiety, depression, homidical ideation, suicidal ideation Endocrine: ABSENT: cold intolerance, heat intolerance, polydipsia, polyuria Hematologic/Lymphatic: ABSENT: easy bleeding, easy bruising Physical Exam Vital Signs: Temp Pulse Resp BP Pulse Ox 98.4 F 93 14 185/67 H 100 07/21/19 23:37 07/21/19 23:37 07/22/19 03:56 07/22/19 03:01 07/22/19 03:56 Intake & Output 07/20/19 07/21/19 07/22/19 11:59 11:59 11:59 Weight 67 kg General appearance: PRESENT: cooperative, mild distress, well-developed, well- nourished Head exam: PRESENT: atraumatic, normocephalic Eye exam: PRESENT: conjunctiva pink, EOMI, PERRLA. ABSENT: scleral icterus Ear exam: PRESENT: normal external ear exam Mouth exam: PRESENT: moist, tongue midline Neck exam: ABSENT: carotid bruit, JVD, lymphadenopathy, thyromegaly Respiratory exam: PRESENT: accessory muscle use, crackles, decreased breath sounds, prolonged expiratory phas, rales, retraction, symmetrical, tachypnea. ABSENT: rhonchi, stridor Cardiovascular exam: PRESENT: gallop, RRR, tachycardia. ABSENT: diastolic murmur, rubs, systolic murmur Pulses: PRESENT: normal dorsalis pedis pul Vascular exam: PRESENT: normal capillary refill GI/Abdominal exam: PRESENT: normal bowel sounds, soft. ABSENT: distended, guarding, mass, organolmegaly, rebound, tenderness Rectal exam: PRESENT: deferred Extremities exam: PRESENT: pedal edema, +1 edema Neurological exam: PRESENT: alert, awake, oriented to person, oriented to place, oriented to time, oriented to situation, CN II-XII grossly intact. ABSENT: motor sensory deficit Psychiatric exam: PRESENT: appropriate affect, normal mood. ABSENT: homicidal ideation, suicidal ideation Skin exam: PRESENT: dry, intact, warm. ABSENT: cyanosis, rash Results Laboratory Results: 07/21/19 23:59 07/21/19 23:59 07/21/19 07/21/19 07/22/19 23:59 23:59 01:14 WBC 9.9 RBC 3.60 L Hgb 10.8 L Hct 34.8 L MCV 97 MCH 30.1 MCHC 31.1 L RDW 17.4 H Plt Count 257 Seg Neutrophils % 85.7 H Carbonic Acid Cancelled HCO3/H2CO3 Ratio Cancelled ABG pH Cancelled ABG pCO2 Cancelled ABG pO2 Cancelled ABG HCO3 Cancelled ABG O2 Saturation Cancelled ABG Base Excess Cancelled FiO2 Cancelled Sodium 133.5 L Potassium 3.8 Chloride 93 L Carbon Dioxide 26 Anion Gap 15 BUN 35 H Creatinine 3.34 H Est GFR ( Amer) 17 L Glucose 777 H* Calcium 8.4 Total Bilirubin 0.6 AST 14 Alkaline Phosphatase 192 H Total Protein 6.8 Albumin 3.4 L 07/22/19 02:18 WBC RBC Hgb Hct MCV MCH MCHC RDW Plt Count Seg Neutrophils % Carbonic Acid 1.57 H HCO3/H2CO3 Ratio 16:1 ABG pH 7.31 L ABG pCO2 52.3 H ABG pO2 93.9 ABG HCO3 25.8 H ABG O2 Saturation 96.5 ABG Base Excess -0.9 FiO2 40% Sodium Potassium Chloride Carbon Dioxide Anion Gap BUN Creatinine Est GFR ( Amer) Glucose Calcium Total Bilirubin AST Alkaline Phosphatase Total Protein Albumin 07/21/19 07/21/19 23:59 23:59 Creatine Kinase 77 Troponin I 0.014 NT-Pro-B Natriuret Pep 89499 H Impressions: Chest X-Ray 07/21/19 23:54 IMPRESSION: 1. Stable mildly enlarged heart size. 2. Mildly prominent central pulmonary vasculature. 3. Bilateral small pleural effusion. 4. Interval worsening of LEFT lower lobe opacification raising the possibility of edema versus superimposed consolidation/infectious process. Please correlate with patient clinical findings and follow-up for resolution. Assessment and Plan - Diagnosis (1) Acute respiratory failure Qualifiers: Respiratory failure complication: hypoxia and hypercapnia Qualified Code(s): J96.01 - Acute respiratory failure with hypoxia; J96.02 - Acute respiratory failure with hypercapnia Is this a current diagnosis for this admission?: Yes Plan: Secondary to hypertensive urgency with pulmonary edema. N.p.o. pending hemodial ysis, BiPAP and supplemental oxygen (2) Hypertensive emergency Is this a current diagnosis for this admission?: Yes Plan: Resume outpatient regiment with IV Norvasc PRN (3) Volume overload Qualifiers: Hypervolemia type: other Qualified Code(s): E87.79 - Other fluid overload Is this a current diagnosis for this admission?: Yes Plan: N.p.o. pending hemodialysis, follow-up post dialysis (4) Acute hyperglycemia Is this a current diagnosis for this admission?: Yes Plan: IV insulin, follow-up Accu-Chek every hour and chemistry every 6 hours (5) CKD (chronic kidney disease) stage V requiring chronic dialysis Is this a current diagnosis for this admission?: Yes Plan: Anuretic, volume overload, follow-up nephrology consult for hemodialysis. - Time Time Spent with patient: 25-34 minutes - Inpatient Certification Medical Necessity: Need Close Monitoring Due to Risk of Patient Decompensation
[2019-07-22] MEDS: HEPARIN SOD (PORCINE) 5,000 UNIT/ML 1 ML VIAL SUBCUT SCH ×3 (06:41→21:19)
--- NOTE | 2019-07-22 07:53 | EKG REPORT ---
SEVERITY:- ABNORMAL ECG - SINUS RHYTHM LEFT ATRIAL ABNORMALITY : Confirmed by: Harry Vogel MD 22-Jul-2019 07:52:13
[2019-07-22] MEDS ORDERED: DOCUSATE SODIUM 100 MG CAPSULE PO SCH (10:00)
[2019-07-22] MEDS ORDERED: INSULIN LISPRO 100 UNIT/ML 3 ML VIAL SUBCUT ONE (10:00)
[2019-07-22 11:07] LABS: ABSOLUTE BASOPHILS # (AUTO) 0.1 10^3/uL (0.0-0.2); ABSOLUTE EOSINOPHILS # (AUTO) 0.2 10^3/uL (0.0-0.6); ABSOLUTE LYMPHOCYTES (AUTO) 1.6 10^3/uL (0.5-4.7); ABSOLUTE MONOCYTES (AUTO) 0.7 10^3/uL (0.1-1.4); ABSOLUTE NEUT (AUTO) 5.5 10^3/uL (1.7-8.2); BASOPHILS % (AUTO) 0.9 % (0-2); EOSINOPHILS % (AUTO) 2.5 % (0-6); HEMATOCRIT 30.2 % (36.0-47.0); LYMPHOCYTES % (AUTO) 19.3 % (13-45); MEAN CORPUSCULAR HEMOGLOBIN 30.1 pg (27.0-33.4); MONOCYTES % (AUTO) 8.5 % (3-13); PLATELET COUNT 222 10^3/uL (150-450); RED CELL DISTRIBUTION WIDTH 16.6 % (11.5-14.0); SEGMENTED NEUTROPHILS % (AUTO) 68.8 % (42-78); TOTAL CELLS COUNTED % (AUTO) 100 %
[2019-07-22 11:09] LABS: MEAN CORPUSCULAR VOLUME 92 fl (80-97)
[2019-07-22 11:28] LABS: ANION GAP 14 (5-19); BLOOD UREA NITROGEN 42 mg/dL (7-20); CALCIUM 8.9 mg/dL (8.4-10.2); CARBON DIOXIDE 26 mmol/L (22-30); CHLORIDE 99 mmol/L (98-107); POTASSIUM 3.1 mmol/L (3.6-5.0)
[2019-07-22 11:34] LABS: GLUCOSE 69 mg/dL (75-110)
--- NOTE | 2019-07-22 12:27 | PDOC CONSULTATION ---
Consultation Consult Date: 07/22/19 Provider Consulted: Brooke FLORES Consult reason:: ESRD for dialysis in the setting of congestive heart failure, hypertension History of Present Illness Admission Date/PCP: 07/22/19 04:18 IRENE SAMANIEGO History of Present Illness: SAMIA HEALY is a 59 year old female with a past medical history ESRD in the background of diabetes mellitus, hypertension, COPD, hyperlipidemia, history of multiple admissions with fluid overload was admitted with history of progressive shortness of breath and severe hyperglycemia. She states she has been having intermittent diarrhea which has led to partial treatments as outpatient dialysis. Basically this is led to her being fluid overloaded as she is also his has a history of noncompliance with diet and fluids. Evaluations in the ER revealed that the patient was in congestive heart failure with very severe hypertensive urgency. She was put on BiPAP and other medications including antihypertensives. Her breathing is gotten better but her blood pressure dropped down into the 90 systolic from over 200 systolic initially. Currently she is being transferred to the ICU for initiation of hemo-dialysis because of being on BiPAP, hypotension and unstable blood sugars. Her blood sugar which was in the 700-800 range is dropped into the low 90s with early hypoglycemic symptoms. She is only on insulin drip which has been held now. Labs and medications were reviewed. She was initially seen on the third floor and discussions were done with the treating nurse over there. Subsequently she was seen in the ICU while undergoing dialysis. She looks quite comfortable and presently has been taken off the BiPAP and and is on 2 L of nasal cannula. Systolic blood pressure still in the 90s systolics. She denies any history of chest pain palpitations or focal deficits. Labs and medications were reviewed. Dialysis orders were reviewed with the treating dialysis nurse. Past Medical History Cardiac Medical History: Reports: Hypertension-primary Denies: Atrial Fibrillation, Coronary Artery Disease, Myocardial Infarction Pulmonary Medical History: Reports: Pneumonia Denies: Asthma, Bronchitis, Chronic Obstructive Pulmonary Disease (COPD) Neurological Medical History: Denies: Migraine, Seizures Endocrine Medical History: Reports: Diabetes Mellitus Type 2 Denies: Diabetes Mellitus Type 1, Hyperthyroidism, Hypothyroidism Renal/ Medical History: Reports: End Stage Renal Disease, Secondary Hyperparathyroidism GI Medical History: Denies: Cirrhosis, Crohn's Disease, Hepatitis, Ulcerative Colitis Musculoskeltal Medical History: Denies: Arthritis, Fibromyalgia Skin Medical History: Denies: Eczema, Psoriasis Psychiatric Medical History: Denies: Depression Hematology Medical History: Reports Anemia of Chronic Kidney Disease Past Surgical History Past Surgical History: Reports: Appendectomy, Cholecystectomy, Dialysis Access Surgery AVF, Orthopedic Surgery - feet, Tubal Ligation, Vascular Surgery - fistula upper arm (left) Done at [facility], Other - Hemodialysis vascular access left upper extremity Social History Smoking Status: Former Smoker Frequency of Alcohol Use: None Hx Recreational Drug Use: No Drugs: None Hx Prescription Drug Abuse: No - Advance Directive Resuscitation Status: Full Code Family History Parental Family History Reviewed: No Children Family History Reviewed: No Sibling(s) Family History Reviewed.: No Medication/Allergy Home Medications: Amlodipine Besylate [Norvasc 5 mg Tablet] 5 mg PO QHS 05/24/19 Atorvastatin Calcium [Lipitor 20 mg Tablet] 20 mg PO QHS 05/24/19 Gabapentin [Neurontin 100 mg Capsule] 200 mg PO BID MDD 6 CAPS 05/24/19 Insulin Aspart [Novolog] 9 unit SQ AC MDD 50 UNITS 05/24/19 Aspirin [Ecotrin 81 mg EC Tablet] 81 mg PO DAILY 06/02/19 Carvedilol [Coreg 12.5 mg Tablet] 12.5 mg PO Q12 60 Days #60 tablet 06/04/19 Clonidine HCl [Catapres 0.3 mg Tablet] 0.3 mg PO TID 07/22/19 Insulin Aspart [Novolog Flexpen] 0 unit SUBCUT .SLD SCALE 07/22/19 Insulin Degludec [Tresiba] 22 unit SQ QHS 07/22/19 Varenicline Tartrate [Chantix 1 Mg Tablet] 1 mg PO BID 07/22/19 Allergies/Adverse Reactions: Penicillins Allergy (Severe, Verified 07/22/19 00:42) rash ciprofloxacin [From Cipro] Allergy (Verified 07/22/19 00:42) shellfish derived Allergy (Verified 07/22/19 00:42) Swelling of tongue oxycodone [From Percocet] Adverse Reaction (Verified 07/22/19 00:42) Review of Systems Constitutional: PRESENT: fatigue, weakness. ABSENT: chills, fever(s), headache(s), night sweats Ears: ABSENT: hearing changes Nose, Mouth, and Throat: ABSENT: mouth pain, sore throat Cardiovascular: PRESENT: dyspnea on exertion, edema, orthropnea. ABSENT: chest pain, palpitations Respiratory: PRESENT: dyspnea Gastrointestinal: PRESENT: diarrhea. ABSENT: bloating, coffee ground emesis, dysphagia, heartburn, hematemesis, hematochezia, nausea, vomiting Genitourinary: ABSENT: hematuria Musculoskeletal: ABSENT: deformity, joint swelling Neurological: ABSENT: abnormal movements, abnormal speech, confusion, focal weakness, frequent falls, lack of coordination, memory loss Endocrine: ABSENT: polydipsia Hematologic/Lymphatic: ABSENT: easy bleeding, easy bruising, lymphadenopathy Physical Exam Vital Signs: Temp Pulse Resp BP Pulse Ox 97.6 F 64 16 93/41 L 100 07/22/19 10:31 07/22/19 10:31 07/22/19 10:31 07/22/19 10:31 07/22/19 10:31 Intake & Output 07/21/19 07/22/19 07/23/19 06:59 06:59 06:59 Intake Total 22 31 Balance 22 31 Weight 67 kg 70.5 kg General appearance: PRESENT: mild distress Eye exam: PRESENT: EOMI, PERRLA. ABSENT: scleral icterus Ear exam: PRESENT: normal external ear exam Mouth exam: PRESENT: moist Neck exam: ABSENT: lymphadenopathy, meningismus, tenderness, thyromegaly, tracheal deviation Respiratory exam: PRESENT: clear to auscultation carlos, crackles, decreased breath sounds Cardiovascular exam: PRESENT: +S1, +S2, systolic murmur GI/Abdominal exam: PRESENT: normal bowel sounds, soft. ABSENT: organomegaly, tenderness Extremities exam: PRESENT: pedal edema Neurological exam: PRESENT: alert, awake, oriented to person Psychiatric exam: PRESENT: appropriate affect Skin exam: ABSENT: cyanosis, erythema, mottled, rash Results Laboratory Results: 07/22/19 10:40 07/22/19 10:40 07/21/19 07/21/19 07/22/19 23:59 23:59 01:14 WBC 9.9 RBC 3.60 L Hgb 10.8 L Hct 34.8 L MCV 97 MCH 30.1 MCHC 31.1 L RDW 17.4 H Plt Count 257 Seg Neutrophils % 85.7 H Carbonic Acid Cancelled HCO3/H2CO3 Ratio Cancelled ABG pH Cancelled ABG pCO2 Cancelled ABG pO2 Cancelled ABG HCO3 Cancelled ABG O2 Saturation Cancelled ABG Base Excess Cancelled FiO2 Cancelled Sodium 133.5 L Potassium 3.8 Chloride 93 L Carbon Dioxide 26 Anion Gap 15 BUN 35 H Creatinine 3.34 H Est GFR ( Amer) 17 L Glucose 777 H* Calcium 8.4 Total Bilirubin 0.6 AST 14 Alkaline Phosphatase 192 H Total Protein 6.8 Albumin 3.4 L 07/22/19 07/22/19 07/22/19 02:18 10:40 10:40 WBC 8.0 RBC 3.30 L Hgb 10.0 L Hct 30.2 L MCV 92 D MCH 30.1 MCHC 33.0 RDW 16.6 H Plt Count 222 Seg Neutrophils % 68.8 Carbonic Acid 1.57 H HCO3/H2CO3 Ratio 16:1 ABG pH 7.31 L ABG pCO2 52.3 H ABG pO2 93.9 ABG HCO3 25.8 H ABG O2 Saturation 96.5 ABG Base Excess -0.9 FiO2 40% Sodium 139.3 Potassium 3.1 L Chloride 99 Carbon Dioxide 26 Anion Gap 14 BUN 42 H Creatinine 3.96 H Est GFR ( Amer) 14 L Glucose 69 L Calcium 8.9 Total Bilirubin AST Alkaline Phosphatase Total Protein Albumin 07/21/19 07/21/19 23:59 23:59 Creatine Kinase 77 Troponin I 0.014 NT-Pro-B Natriuret Pep 05968 H Impressions: Chest X-Ray 07/21/19 23:54 IMPRESSION: 1. Stable mildly enlarged heart size. 2. Mildly prominent central pulmonary vasculature. 3. Bilateral small pleural effusion. 4. Interval worsening of LEFT lower lobe opacification raising the possibility of edema versus superimposed consolidation/infectious process. Please correlate with patient clinical findings and follow-up for resolution. Assessment & Plan - Diagnosis (1) Acute respiratory failure Qualifiers: Respiratory failure complication: hypoxia and hypercapnia Qualified Code(s): J96.01 - Acute respiratory failure with hypoxia; J96.02 - Acute respiratory failure with hypercapnia Is this a current diagnosis for this admission?: Yes Plan: Setting of acute congestive heart failure.Patient clinically better especially with initiation of hemodialysis and fluid removal. Continue to monitor. (2) Hypertensive emergency Is this a current diagnosis for this admission?: Yes Plan: Patient was over treated and blood pressure dropped from over 200 systolic to cu rrent low 90 systolic. Patient has been primed with fluids prior to initiation of dialysis for fluid extraction. Monitor carefully. Patient being transferred to the ICU. (3) Acute hyperglycemia Is this a current diagnosis for this admission?: Yes Plan: Indicative of nonketotic hyperosmolar state. Patient initially on insulin drip which has been discontinued as the blood sugars have dropped into the double digits. Being monitored closely. Patient has had breakfast tray to eat. (4) Anemia in chronic kidney disease (CKD) Plan: Currently no indications for erythropoietin. Monitor (5) Diabetes mellitus type 2 in nonobese Plan: Advised tight control. Unfortunately noncompliant. (6) End stage renal failure on dialysis Plan: Patient currently being seen on dialysis in the ICU. Vital signs are stable with blood pressures in the low 90s systolic. Dialysis is being supervised to ensure safe and smooth procedure. She has been primed with 200 cc of fluid and we are planning to remove fluids gently. Plan to remove approximately 2-3 L as tolerated. Discussed at length about the orders with the treating dialysis nurse Marline.Plan to run her for 3 and half hours and may be 4 hours if needed. (7) Hyperosmolar non-ketotic state in patient with type 2 diabetes mellitus Plan: As per hospitalist. Sugars are better after initiation of insulin drip. (8) Congestive heart failure Plan: Improving. See how she responds to fluid removal at the end of dialysis. However this has to be done carefully given her blood pressure dropping from the over 200 systolic to the current 90 systolic. Got to be very cautious in removing fluid. Monitor closely in the ICU.
[2019-07-22] MEDS: INSULIN LISPRO 100 UNIT/ML 3 ML VIAL SUBCUT SCH ×3 (16:23→21:25)
[2019-07-22] MEDS: VARENICLINE TARTRATE 1 MG TABLET PO SCH (17:25)
[2019-07-22] MEDS: GABAPENTIN 100 MG CAPSULE PO SCH (21:17)
[2019-07-22] MEDS ORDERED: INSULIN GLARGINE,HUM.REC.ANLOG 1,000 UNIT/10 ML VIAL SUBCUT SCH (22:00)
[2019-07-22] MEDS ORDERED: AMLODIPINE BESYLATE 5 MG TABLET PO SCH (22:00)
[2019-07-22] MEDS ORDERED: ATORVASTATIN CALCIUM 20 MG TABLET PO SCH (22:00)
[2019-07-23 05:17] LABS: ABSOLUTE BASOPHILS # (AUTO) 0.1 10^3/uL (0.0-0.2); ABSOLUTE EOSINOPHILS # (AUTO) 0.3 10^3/uL (0.0-0.6); ABSOLUTE MONOCYTES (AUTO) 0.5 10^3/uL (0.1-1.4); ABSOLUTE NEUT (AUTO) 4.4 10^3/uL (1.7-8.2); BASOPHILS % (AUTO) 1.5 % (0-2); EOSINOPHILS % (AUTO) 3.8 % (0-6); HEMATOCRIT 28.8 % (36.0-47.0); HEMOGLOBIN 9.3 g/dL (12.0-15.5); LYMPHOCYTES % (AUTO) 27.5 % (13-45); MEAN CORPUSCULAR HEMOGLOBIN 29.5 pg (27.0-33.4); MEAN CORPUSCULAR HGB CONC 32.4 g/dL (32.0-36.0); MEAN CORPUSCULAR VOLUME 91 fl (80-97); PLATELET COUNT 217 10^3/uL (150-450); RED BLOOD COUNT 3.17 10^6/uL (3.72-5.28); RED CELL DISTRIBUTION WIDTH 16.7 % (11.5-14.0); SEGMENTED NEUTROPHILS % (AUTO) 60.2 % (42-78); TOTAL CELLS COUNTED % (AUTO) 100 %; WHITE BLOOD COUNT 7.3 10^3/uL (4.0-10.5)
[2019-07-23 05:22] LABS: ANION GAP 9 (5-19); CALCIUM 8.1 mg/dL (8.4-10.2); CARBON DIOXIDE 29 mmol/L (22-30); CHLORIDE 96 mmol/L (98-107); GLUCOSE 182 mg/dL (75-110); PHOSPHORUS 3.3 mg/dL (2.5-4.5); POTASSIUM 3.3 mmol/L (3.6-5.0)
[2019-07-23 05:45] LABS: BLOOD UREA NITROGEN 19 mg/dL (7-20)
[2019-07-23] MEDS: HEPARIN SOD (PORCINE) 5,000 UNIT/ML 1 ML VIAL SUBCUT SCH ×2 (06:35→14:08)
[2019-07-23] MEDS ORDERED: EPOETIN ALFA-EPBX 20,000 UNIT in SYRINGE, DISPOSABLE, 1 EACH IV PRN (07:53)
[2019-07-23] MEDS: INSULIN LISPRO 100 UNIT/ML 3 ML VIAL SUBCUT SCH ×4 (08:20→13:38)
[2019-07-23] MEDS ORDERED: ASPIRIN 81 MG TABLET, ENT COATED PO SCH (10:00)
[2019-07-23] MEDS: CLONIDINE HCL 0.2 MG TABLET PO SCH ×2 (12:13→14:07)
[2019-07-23] MEDS: VARENICLINE TARTRATE 1 MG TABLET PO SCH (12:13)
--- NOTE | 2019-07-23 12:35 | PDOC PROGRESS REPORT ---
Subjective Progress Note for:: 07/23/19 Reason For Visit: Patient seen today on dialysis. She is undergoing dialysis very comfortably. Vital signs are stable. She feels a whole lot better with resolved shortness of breath. She would like to have dry weight adjusted down to 65 at [facility]. Labs and medications were reviewed. Dialysis orders were reviewed with the treating dialysis nurse. She did good dialysis yesterday and we were able to remove approximately 2 L of fluid and may need to remove another 3 L today if possible. Physical Exam Vital Signs: Temp Pulse Resp BP Pulse Ox 98.3 F 79 18 149/48 H 96 07/23/19 08:04 07/23/19 08:04 07/23/19 08:04 07/23/19 08:04 07/23/19 08:04 Intake & Output 07/22/19 07/23/19 07/24/19 06:59 06:59 06:59 Intake Total 22 151 Output Total 2800 4200 Balance 22 -2649 -4200 Weight 67 kg 70.6 kg General appearance: PRESENT: no acute distress Respiratory exam: PRESENT: clear to auscultation carlos. ABSENT: crackles Cardiovascular exam: PRESENT: +S1, +S2, systolic murmur GI/Abdominal exam: PRESENT: normal bowel sounds, soft. ABSENT: organomegaly, tenderness Extremities exam: PRESENT: pedal edema Neurological exam: PRESENT: alert, awake, oriented to person, oriented to place Psychiatric exam: PRESENT: appropriate affect Results Laboratory Results: 07/23/19 04:42 07/23/19 04:42 07/23/19 07/23/19 04:42 04:42 WBC 7.3 RBC 3.17 L Hgb 9.3 L Hct 28.8 L MCV 91 MCH 29.5 MCHC 32.4 RDW 16.7 H Plt Count 217 Seg Neutrophils % 60.2 Sodium 134.3 L Potassium 3.3 L Chloride 96 L Carbon Dioxide 29 Anion Gap 9 BUN 19 D Creatinine 3.07 H Est GFR ( Amer) 19 L Glucose 182 H Calcium 8.1 L Phosphorus 3.3 07/21/19 07/21/19 23:59 23:59 Creatine Kinase 77 Troponin I 0.014 NT-Pro-B Natriuret Pep 14437 H Impressions: Chest X-Ray 07/21/19 23:54 IMPRESSION: 1. Stable mildly enlarged heart size. 2. Mildly prominent central pulmonary vasculature. 3. Bilateral small pleural effusion. 4. Interval worsening of LEFT lower lobe opacification raising the possibility of edema versus superimposed consolidation/infectious process. Please correlate with patient clinical findings and follow-up for resolution. Assessment & Plan - Diagnosis (1) Acute respiratory failure Qualifiers: Respiratory failure complication: hypoxia and hypercapnia Qualified Code(s): J96.01 - Acute respiratory failure with hypoxia; J96.02 - Acute respiratory failure with hypercapnia Is this a current diagnosis for this admission?: Yes Plan: Resolved with removal/ultrafiltration of fluid and resolution of congestive heart failure. Will re-adjust her dry weight to 65 at [facility] so that she can be kept off as much of fluid as possible. Advised to watch her diet and fluid intake at home. (2) Hypertensive emergency Is this a current diagnosis for this admission?: Yes Plan: Resolved. (3) Acute hyperglycemia Is this a current diagnosis for this admission?: Yes Plan: Improving. (4) Anemia in chronic kidney disease (CKD) Plan: On erythropoietin. (5) Diabetes mellitus type 2 in nonobese Plan: Advised tight control and compliance with diet and medications. (6) End stage renal failure on dialysis Plan: Patient currently undergoing dialysis. Vital signs are stable. Dialysis is being supervised to ensure safe and smooth procedure. Plan to remove approximately 3 L of fluid as tolerated. Dialysis orders were reviewed with the treating dialysis nurse. (7) Hyperosmolar non-ketotic state in patient with type 2 diabetes mellitus Plan: Resolved. (8) Congestive heart failure Plan: Resolved. Advised proper dietary and fluid modifications and restrictions.
[2019-07-23 13:59] VITALS: BP 153/49
[2019-07-23] MEDS: CARVEDILOL 12.5 MG TABLET PO SCH (14:07)
[2019-07-23] MEDS: GABAPENTIN 100 MG CAPSULE PO SCH (14:08)
--- NOTE | 2019-07-23 14:41 | PDOC DISCHARGE SUMMARY ---
Impression - Admit/DC Date/PCP Admission Date/Primary Care Provider: 07/22/19 04:18 IRENE SAMANIEGO Discharge Date: 07/23/19 - Discharge Diagnosis (1) Hyperglycemic hyperosmolar nonketotic coma Is this a current diagnosis for this admission?: Yes (2) Hypertensive emergency Is this a current diagnosis for this admission?: Yes (3) Volume overload Is this a current diagnosis for this admission?: Yes (4) Acute respiratory failure with hypoxia Is this a current diagnosis for this admission?: Yes (5) End stage renal failure on dialysis Is this a current diagnosis for this admission?: Yes - Assessment Summary: Patient was admitted for treatment of HHNK with blood sugars over 700 and no significant anion gap. Patient was started on an insulin drip and her blood sugars subsequently improved. She was then transitioned to her home insulin regimen of rapid acting insulin 9 units with meals and Lantus 22 units at bedtime in place of her Tresiba. Her blood sugars have remained within acceptable region on this regimen and as such no changes have been made to her home regimen. This raises a question of compliance with medication given that her blood sugars seem to be doing well when she is simply resumed on her home regimen of insulin. She was also treated for hypertensive emergency and volume overloaded from her ESRD as manifested by pulmonary edema which was noted on chest x-ray. She initi ally was requiring BiPAP given increased work of breathing respiratory failure but was able to be transitioned off BiPAP with better control of her blood pressure using IV, topical and oral medications. She subsequently underwent dialysis twice with fluid removal and was resumed on her home regimen of antihypertensives. Her BP has been stable since then and only minimally elevated but within acceptable limits. Patient is being discharged on her same antihypertensive medications and a home nurse has been set up to visit patient to ensure compliance with medications, to check vitals and blood sugar. - Additional Information Resuscitation Status: Full Code Discharge Diet: Other (Comments) - Renal diet Discharge Activity: Activity As Tolerated Referrals: IRENE SAMANIEGO MD [Primary Care Provider] - Follow up as needed Home Medications: RX: Amlodipine Besylate [Norvasc 5 mg Tablet] 5 mg PO QHS 05/24/19 RX: Atorvastatin Calcium [Lipitor 20 mg Tablet] 20 mg PO QHS 05/24/19 RX: Gabapentin [Neurontin 100 mg Capsule] 200 mg PO BID MDD 6 CAPS 05/24/19 RX: Insulin Aspart [Novolog] 9 unit SQ AC MDD 50 UNITS 05/24/19 RX: Aspirin [Ecotrin 81 mg EC Tablet] 81 mg PO DAILY 06/02/19 RX: Carvedilol [Coreg 12.5 mg Tablet] 12.5 mg PO Q12 60 Days #60 tablet 06/04/19 RX: Clonidine HCl [Catapres 0.3 mg Tablet] 0.3 mg PO TID 07/22/19 RX: Insulin Aspart [Novolog Flexpen] 0 unit SUBCUT .SLD SCALE 07/22/19 RX: Insulin Degludec [Tresiba] 22 unit SQ QHS 07/22/19 RX: Varenicline Tartrate [Chantix 1 mg Tablet] 1 mg PO BID 07/22/19 History of Present Illiness History of Present Illness: SAMIA HEALY is a 59 year old female with a past medical history of anemia of chronic disease, hypertension, anuric end-stage renal failure on hemodialysis Friday who presents with shortness of breath, hyperglycemic hyperosmolarity and hypertensive urgency. Her dialysis sessions were cut in half this week because she had a flulike illness with nausea and diarrhea. She denies medication or lifestyle indiscretion but is also known to be chronically noncompliant. Work-up reveals hypertensive urgency, pulmonary vascular congestion, pulmonary edema, metabolic acidosis. She started on transdermal nitro, BiPAP and referred to the hospitalist for admission. Patient admits feeling somewhat better. Physical Exam Vital Signs: Temp Pulse Resp BP Pulse Ox 98.8 F 87 14 153/49 H 100 07/23/19 13:46 07/23/19 13:46 07/23/19 13:46 07/23/19 13:46 07/23/19 13:46 Intake & Output 07/22/19 07/23/19 07/24/19 06:59 06:59 06:59 Intake Total 22 151 240 Output Total 2800 4200 Balance 58 -2513 -4572 Weight 67 kg 70.6 kg General appearance: PRESENT: no acute distress, cooperative Neck exam: ABSENT: JVD Respiratory exam: PRESENT: crackles - Mild basilar, symmetrical, unlabored. ABSENT: accessory muscle use, chest wall tenderness, retraction, tachypnea, wheezes GI/Abdominal exam: PRESENT: normal bowel sounds, soft. ABSENT: rebound, rigid, tenderness Neurological exam: PRESENT: alert, awake, oriented to person, oriented to place, oriented to time, oriented to situation Results Laboratory Results: WBC 7.3 10^3/uL (4.0-10.5) 07/23/19 04:42 RBC 3.17 10^6/uL (3.72-5.28) L 07/23/19 04:42 Hgb 9.3 g/dL (12.0-15.5) L 07/23/19 04:42 Hct 28.8 % (36.0-47.0) L 07/23/19 04:42 MCV 91 fl (80-97) 07/23/19 04:42 MCH 29.5 pg (27.0-33.4) 07/23/19 04:42 MCHC 32.4 g/dL (32.0-36.0) 07/23/19 04:42 RDW 16.7 % (11.5-14.0) H 07/23/19 04:42 Plt Count 217 10^3/uL (150-450) 07/23/19 04:42 Lymph % (Auto) 27.5 % (13-45) 07/23/19 04:42 [place] % (Auto) 7.0 % (3-13) 07/23/19 04:42 Eos % (Auto) 3.8 % (0-6) 07/23/19 04:42 Baso % (Auto) 1.5 % (0-2) 07/23/19 04:42 Absolute Neuts (auto) 4.4 10^3/uL (1.7-8.2) 07/23/19 04:42 Absolute Lymphs (auto) 2.0 10^3/uL (0.5-4.7) 07/23/19 04:42 Absolute Monos (auto) 0.5 10^3/uL (0.1-1.4) 07/23/19 04:42 Absolute Eos (auto) 0.3 10^3/uL (0.0-0.6) 07/23/19 04:42 Absolute Basos (auto) 0.1 10^3/uL (0.0-0.2) 07/23/19 04:42 Seg Neutrophils % 60.2 % (42-78) 07/23/19 04:42 Carbonic Acid 1.57 mmol/L (1.05-1.35) H 07/22/19 02:18 HCO3/H2CO3 Ratio 16:1 07/22/19 02:18 ABG pH 7.31 (7.35-7.45) L 07/22/19 02:18 ABG pCO2 52.3 mmHg (35-45) H 07/22/19 02:18 ABG pO2 93.9 mmHg (80-100) 07/22/19 02:18 ABG HCO3 25.8 mmol/L (20-24) H 07/22/19 02:18 ABG Total CO2 27.4 mmol/L (21-25) H 07/22/19 02:18 ABG O2 Saturation 96.5 % (94-98) 07/22/19 02:18 ABG Base Excess -0.9 mmol/L 07/22/19 02:18 FiO2 40% 07/22/19 02:18 Sodium 134.3 mmol/L (137-145) L 07/23/19 04:42 Potassium 3.3 mmol/L (3.6-5.0) L 07/23/19 04:42 Chloride 96 mmol/L (98-107) L 07/23/19 04:42 Carbon Dioxide 29 mmol/L (22-30) 07/23/19 04:42 Anion Gap 9 (5-19) 07/23/19 04:42 BUN 19 mg/dL (7-20) D 07/23/19 04:42 Creatinine 3.07 mg/dL (0.52-1.25) H 07/23/19 04:42 Est GFR ( Amer) 19 (>60) L 07/23/19 04:42 Est GFR (MDRD) Non-Af 16 (>60) L 07/23/19 04:42 Glucose 182 mg/dL (75-110) H 07/23/19 04:42 POC Glucose 171 mg/dL (70-110) H 07/23/19 13:49 Calcium 8.1 mg/dL (8.4-10.2) L 07/23/19 04:42 Phosphorus 3.3 mg/dL (2.5-4.5) 07/23/19 04:42 Total Bilirubin 0.6 mg/dL (0.2-1.3) 07/21/19 23:59 Direct Bilirubin 0.5 mg/dL (0.0-0.4) H 07/21/19 23:59 Neonat Total Bilirubin Not Reportable 07/21/19 23:59 Neonat Direct Bilirubin Not Reportable 07/21/19 23:59 Neonat Indirect Bili Not Reportable 07/21/19 23:59 AST 14 U/L (14-36) 07/21/19 23:59 ALT 10 U/L (<35) 07/21/19 23:59 Alkaline Phosphatase 192 U/L (38-126) H 07/21/19 23:59 Creatine Kinase 77 U/L (30-135) 07/21/19 23:59 Troponin I 0.014 ng/mL 07/21/19 23:59 NT-Pro-B Natriuret Pep 59626 pg/mL (<125) H 07/21/19 23:59 Total Protein 6.8 g/dL (6.3-8.2) 07/21/19 23:59 Albumin 3.4 g/dL (3.5-5.0) L 07/21/19 23:59 Influenza A (Rapid) NEGATIVE (NEGATIVE) 07/22/19 00:40 Influenza B (Rapid) NEGATIVE (NEGATIVE) 07/22/19 00:40 07/21/19 23:59 Troponin I 0.014 NT-Pro-B Natriuret Pep 95729 H Impressions: Chest X-Ray 07/21/19 23:54 IMPRESSION: 1. Stable mildly enlarged heart size. 2. Mildly prominent central pulmonary vasculature. 3. Bilateral small pleural effusion. 4. Interval worsening of LEFT lower lobe opacification raising the possibility of edema versus superimposed consolidation/infectious process. Please correlate with patient clinical findings and follow-up for resolution. Plan Time Spent: Greater than 30 Minutes Stroke Is this a Stroke Patient?: No Acute Heart Failure - Is this a Heart Failure Patient?: No
== END 2019-07-23 16:46 | disposition home health service (06) | DRG 637 ==
LOC: ER 23:37 → EH 07-22 04:18 → 3W 07-22 08:43
PROVIDERS: ADMIT Internal Medicine; ATTEND Internal Medicine
PROC: 5A1D70Z Performance of Urinary Filtration, Intermittent, Less than 6 Hours Per Day (ICD-10-PCS; principal; 2019-07-22)
DX: E11.00 Type 2 diabetes mellitus with hyperosmolarity without nonketotic hyperglycemic-hyperosmolar coma (NKHHC) (principal); J96.01 Acute respiratory failure with hypoxia; J96.02 Acute respiratory failure with hypercapnia; N18.6 End stage renal disease; I12.0 Hypertensive chronic kidney disease with stage 5 chronic kidney disease or end stage renal disease; I16.1 Hypertensive emergency; D63.1 Anemia in chronic kidney disease; E11.22 Type 2 diabetes mellitus with diabetic chronic kidney disease; E87.79 Other fluid overload; Z99.2 Dependence on renal dialysis; Z79.82 Long term (current) use of aspirin; Z79.4 Long term (current) use of insulin; Z79.899 Other long term (current) drug therapy
CPT/HCPCS: 36415; 71045; 80048; 80053; 82550; 82803; 82962; 83880; 84100; 84484; 85025; 87804; 93005; 93010; 94660; 99291; 99292; J1644; J1815; J3490; Q5105

== ENCOUNTER 2019-09-08 19:54 | Inpatient (IN) | payer MEDICARE, MEDICAID ==
[2019-09-08 20:44] LABS: VENOUS BLOOD BASE EXCESS 3.7 mmol/L; VENOUS BLOOD PCO2 53.6 mmHg (35-63); VENOUS BLOOD PH 7.37 (7.30-7.42)
[2019-09-08 21:05] LABS: ABSOLUTE BASOPHILS # (AUTO) 0.1 10^3/uL (0.0-0.2); ABSOLUTE EOSINOPHILS # (AUTO) 0.2 10^3/uL (0.0-0.6); ABSOLUTE MONOCYTES (AUTO) 0.7 10^3/uL (0.1-1.4); ABSOLUTE NEUT (AUTO) 7.9 10^3/uL (1.7-8.2); BASOPHILS % (AUTO) 1.3 % (0-2); HEMOGLOBIN 10.7 g/dL (12.0-15.5); MEAN CORPUSCULAR HEMOGLOBIN 28.9 pg (27.0-33.4); MEAN CORPUSCULAR HGB CONC 31.4 g/dL (32.0-36.0); MEAN CORPUSCULAR VOLUME 92 fl (80-97); MONOCYTES % (AUTO) 6.6 % (3-13); PLATELET COUNT 333 10^3/uL (150-450); RED BLOOD COUNT 3.69 10^6/uL (3.72-5.28); RED CELL DISTRIBUTION WIDTH 17.6 % (11.5-14.0); SEGMENTED NEUTROPHILS % (AUTO) 80.1 % (42-78); TOTAL CELLS COUNTED % (AUTO) 100 %; WHITE BLOOD COUNT 9.9 10^3/uL (4.0-10.5)
[2019-09-08 21:16] LABS: INTERNATIONAL RATION (INR) 1.14; PROTHROMBIN TIME 14.7 SEC (11.4-15.4)
[2019-09-08] MEDS ORDERED: HYDRALAZINE HCL INJ/PF 20 MG/1 ML SDV IV ONE (21:18)
[2019-09-08] MEDS ORDERED: ONDANSETRON HCL INJ/PF 4 MG/2 ML SDV IV ONE (21:19)
--- NOTE | 2019-09-08 21:19 | RADIOLOGY REPORT (SQ) ---
EXAM DESCRIPTION: AP portable radiograph of the chest CLINICAL HISTORY: 59 years Female, shortness of breath COMPARISON: July 22, 2019 FINDINGS: Lungs: Blunting of the right costophrenic angle consistent with a right pleural effusion is similar to the previous exam. There is hazy groundglass opacification in the mid and lower lung zone which is also unchanged. One compared the previous exam there is improved aeration predominantly in the left lung base. No pneumothorax. Mediastinum: Heart size is enlarged. Bones: Osseous structures are stable Vascular stent projects over the left axilla and is unchanged IMPRESSION: 1. Overall improvement in lung volumes and aeration with resolution of left lower lobe parenchymal lung opacification. 2. Mild changes of increased intravascular volume which are similar to the previous exam.
[2019-09-08 21:26] LABS: ALBUMIN 3.9 g/dL (3.5-5.0); ALKALINE PHOSPHATASE 223 U/L (38-126); ANION GAP 13 (5-19); ASPARTATE AMINO TRANSFERASE 20 U/L (14-36); BILIRUBIN,DIRECT 0.5 mg/dL (0.0-0.4); BILIRUBIN,TOTAL 0.9 mg/dL (0.2-1.3); BLOOD UREA NITROGEN 53 mg/dL (7-20); CALCIUM 9.2 mg/dL (8.4-10.2); CARBON DIOXIDE 29 mmol/L (22-30); CHLORIDE 89 mmol/L (98-107); TOTAL PROTEIN 7.7 g/dL (6.3-8.2)
[2019-09-08 21:34] LABS: POTASSIUM 6.2 mmol/L (3.6-5.0)
[2019-09-08 21:35] LABS: GLUCOSE 555 mg/dL (75-110)
--- NOTE | 2019-09-08 22:38 | EKG REPORT ---
SEVERITY:- ABNORMAL ECG - SINUS TACHYCARDIA LEFT ATRIAL ABNORMALITY PROBABLE LEFT VENTRICULAR HYPERTROPHY : Confirmed by: Deng Holt 08-Sep-2019 22:37:22
[2019-09-08 22:49] LABS: A TYPE INFLUENZA AG NEGATIVE (NEGATIVE); B INFLUENZA AG NEGATIVE (NEGATIVE)
[2019-09-08] MEDS ORDERED: CALCIUM GLUCONATE 1000 MG/10 ML INJ IV ONE (22:51)
[2019-09-08] MEDS ORDERED: INSULIN REG, HUMAN 100 UNIT/ML 3 ML VIAL (PYX) IV ONE (22:52)
[2019-09-08] MEDS ORDERED: SODIUM BICARBONATE 8.4% INJ 50 MEQ/50 ML DISP.SYRIN IV ONE (22:53)
--- NOTE | 2019-09-08 22:56 | RADIOLOGY REPORT (SQ) ---
EXAM DESCRIPTION: CT ABDOMEN PELVIS WITHOUT IV CONTRAST COMPLETED DATE/TME: 09/08/2019 21:16 CLINICAL HISTORY: 59 years Female RUQ/RLQ pain COMPARISON: None. TECHNIQUE: Contiguous axial images obtained through the abdomen and pelvis without IV contrast. Reformatted images obtained. This exam was performed according to our department optimization program which includes automated exposure control, adjustment of the mA and/or kv according to patient size and/or use of iterative reconstruction technique. FINDINGS: Calcification of the coronary arteries. There is mixed alveolar and interstitial infiltrate in the lung bases with bilateral effusions. Findings may reflect pulmonary edema. The liver appears unremarkable. Unremarkable spleen. Calcifications in the pancreas suggesting chronic calcific pancreatitis. No adrenal masses. The kidneys appear unremarkable. No hydronephrosis or definite ureteral calculi. The gallbladder is absent No aneurysmal dilatation of the aorta. No bowel obstruction. Diverticulosis without evidence of diverticulitis. No free pelvic fluid. Nonvisualization of the appendix. IMPRESSION: Findings suggesting chronic calcific pancreatitis Diverticulosis without evidence of diverticulitis Mixed infiltrates in the lung bases with bilateral pleural effusions. Findings may reflect pulmonary edema
[2019-09-08] MEDS ORDERED: ACETAMINOPHEN 325 MG TABLET PO ONE (23:43)
[2019-09-08] MEDS ORDERED: AZTREONAM INJ 1 GM VIAL IV ONE (23:56)
[2019-09-08] MEDS ORDERED: VANCOMYCIN HCL INJ 1000 MG VIAL IV ONE (23:56)
[2019-09-09] MEDS ORDERED: LORAZEPAM INJ 2 MG/1 ML VIAL IV PRN (00:35)
[2019-09-09] MEDS ORDERED: MORPHINE SULFATE 10 MG/ML INJ IV PRN ×5 (00:35→22:10)
[2019-09-09] MEDS ORDERED: METOPROLOL TARTRATE PF/INJ 5 MG/5 ML SDV IV PRN (00:35)
[2019-09-09] MEDS ORDERED: MAGNESIUM HYDROXIDE SUSP 30 ML UDCUP PO PRN (00:35)
[2019-09-09] MEDS ORDERED: HYDRALAZINE HCL INJ/PF 20 MG/1 ML SDV IV PRN (00:35)
[2019-09-09] MEDS ORDERED: MAG HYDROX/AL HYDROX/SIMETH SUSP 30 ML UDCUP PO PRN (00:35)
[2019-09-09] MEDS ORDERED: DEXTROSE 40% GEL 15 GM TUBE PO PRN ×2 (00:37)
[2019-09-09] MEDS ORDERED: DEXTROSE 50%-WATER 25 GM/50 ML DISP.SYRIN IV PRN ×2 (00:37)
[2019-09-09] MEDS ORDERED: GLUCAGON,HUMAN RECOMB 1 MG INJ IM PRN (00:37)
--- NOTE | 2019-09-09 00:40 | ER Document Report ---
ED General - General Chief Complaint: Abdominal Pain Stated Complaint: SHORTNESS OF BREATH Time Seen by Provider: 09/08/19 20:42 TRAVEL OUTSIDE OF THE [place] IN LAST 30 DAYS: No - HPI Notes: 59-year-old female dialysis patient with 2-day history nausea vomiting diarrhea and low-grade fever. Dialysis was cut short yesterday. Now also short of breath tonight. No vomiting. Has some discomfort pleuritic in nature right upper quadrant abdomen and right lower anterior chest. Prior history of - Related Data Allergies/Adverse Reactions: Penicillins Allergy (Severe, Verified 07/22/19 00:42) rash ciprofloxacin [From Cipro] Allergy (Verified 07/22/19 00:42) shellfish derived Allergy (Verified 07/22/19 00:42) Swelling of tongue oxycodone [From Percocet] Adverse Reaction (Verified 07/22/19 00:42) Home Medications: clonidine 0.3mg TID. gabapentin 100 mg BID. carvedilol 12.5 mg Q12H. chantix 1mg BID. atorvastatin 20mg QHS. amlodipine 5mg QHS Past Medical History - General Information source: Patient, [facility] Records - Social History Smoking Status: Former Smoker Family History: DM, Hypertension Patient has suicidal ideation: No Patient has homicidal ideation: No - Past Medical History Cardiac Medical History: Reports: Hx Hypertension Denies: Hx Atrial Fibrillation, Hx Congestive Heart Failure, Hx Coronary Artery Disease, Hx Heart Attack Pulmonary Medical History: Reports: Hx Pneumonia Denies: Hx Asthma, Hx Bronchitis, Hx COPD Neurological Medical History: Denies: Hx Cerebrovascular Accident, Hx Migraine, Hx Seizures Endocrine Medical History: Reports: Hx Diabetes Mellitus Type 2. Denies: Hx Diabetes Mellitus Type 1, Hx Hyperthyroidism, Hx Hypothyroidism Renal/ Medical History: Reports: Hx End Stage Renal Disease, Hx Hemodialysis. Denies: Hx Peritoneal Dialysis GI Medical History: Denies: Hx Cirrhosis, Hx Crohn's Disease, Hx Hepatitis, Hx Ulcerative Colitis Musculoskeletal Medical History: Denies Hx Arthritis, Denies Hx Fibromyalgia Skin Medical History: Denies Hx Eczema, Denies Hx Psoriasis Psychiatric Medical History: Denies: Hx Depression Infectious Medical History: Denies: Hx Hepatitis Past Surgical History: Reports: Hx Appendectomy, Hx Section, Hx Cholecystectomy, Hx Orthopedic Surgery - feet, Hx Tubal Ligation, Hx Vascular Surgery - fistula upper arm (left) Done at [facility], Other - Hemodialysis vascular access left upper extremity - Immunizations Hx Diphtheria, Pertussis, Tetanus Vaccination: No Hx Pneumococcal Vaccination: 07/21/16 Review of Systems - Review of Systems Notes: Constitutional: As per HPI. HENT: Negative for sore throat. Eyes: Negative for visual changes. Cardiovascular: Negative for chest pain. Respiratory: As per HPI. Gastrointestinal: As per HPI. Genitourinary: Negative for dysuria. Musculoskeletal: Negative for back pain. Skin: Negative for rash. Neurological: Negative for headaches, focal weakness or numbness. 10 point ROS negative except as marked above and in HPI. Physical Exam - Vital signs Vitals: Pulse Ox 94 09/08/19 19:59 - Notes Notes: GENERAL: Female patient of approximately stated age who appears dyspneic and uncomfortable. SKIN: Good turgor no rashes. HEAD: Normocephalic atraumatic. EYES: PERRLA. EOMI. Conjunctivae and sclerae clear. EARS: CANALS AND TMS CLEAR. NOSE: CLEAR. MOUTH: Moist mucosa. Good dentition. No stridor or edema. No drooling. NECK: Supple. No masses or thyromegaly. No adenopathy. Carotids 2+ without bruits. No JVD. BACK: Symmetrical without tenderness. CHEST: Diminished breath sounds both bases. Appears mildly dyspneic. Respirations unlabored. Breath sounds clear and symmetrical. HEART: Regular rhythm. No murmur gallop or rub. ABDOMEN: Mild tenderness right upper quadrant. Soft without masses, organomegaly or rebound. Bowel sounds normally active. No bruits. GENITALIA: Deferred. EXTREMITIES: 1+ bilateral pretibial edema. No calf tenderness. Cap refill less than 1.5 seconds. Dorsalis pedis and posterior tibial pulses 3+ and symmetrical. NEUROLOGICAL: GCS 15. Alert and oriented x3.. Fluent speech. Cranial nerves II through XII intact. Sensorimotor and cerebellar normal. Normal tone. PSYCHIATRIC: Appropriate affect. Course - Re-evaluation Re-evalutation: 09/09/19 00:40 Years [place] - Vital Signs Vital signs: Temp Pulse Resp BP Pulse Ox 100.4 F 28 H 228/79 H 97 09/09/19 00:28 09/08/19 21:51 09/08/19 21:51 09/08/19 21:51 - Laboratory Result Diagrams: 09/08/19 20:45 09/08/19 20:45 Laboratory results interpreted by me: 09/08/19 09/08/19 20:45 20:45 RBC 3.69 L Hgb 10.7 L Hct 34.0 L MCHC 31.4 L RDW 17.6 H Lymph % (Auto) 10.0 L Seg Neutrophils % 80.1 H Sodium 131.2 L Potassium 6.2 H* Chloride 89 L BUN 53 H Creatinine 5.44 H Est GFR ( Amer) 10 L Est GFR (MDRD) Non-Af 8 L Glucose 555 H* Direct Bilirubin 0.5 H Alkaline Phosphatase 223 H Critical Care Note - Critical Care Note Total time excluding time spent on procedures (mins): 35 - Treatment of critical hyperkalemia with IV calcium and insulin Discharge - Discharge Clinical Impression: Hyperkalemia, Acute viral syndrome, End stage renal disease Fluid overload Qualifiers: Hypervolemia type: other Qualified Code(s): E87.79 - Other fluid overload Condition: Serious Disposition: ADMITTED INPATIENT Admitting Provider: Dotty (Hospitalist) Unit Admitted: Telemetry
[2019-09-09] MEDS ORDERED: PROMETHAZINE HCL INJ 25 MG/1 ML VIAL IV PRN (01:57)
[2019-09-09] MEDS ORDERED: SODIUM POLYSTYRENE SULFONATE 15 GM/60 ML PO ONE (02:15)
[2019-09-09] MEDS ORDERED: DIPHENHYDRAMINE HCL 50 MG/ML VIAL IV PRN (02:23)
[2019-09-09] MEDS ORDERED: CLONIDINE HCL 0.2 MG TABLET PO ONE (02:30)
[2019-09-09] MEDS ORDERED: AMLODIPINE BESYLATE 5 MG TABLET PO ONE (02:30)
[2019-09-09] MEDS ORDERED: NITROGLYCERIN 2% OINTMENT 1 GM PACKET TP ONE (02:30)
[2019-09-09] MEDS: HEPARIN SOD (PORCINE) 5,000 UNIT/ML 1 ML VIAL SUBCUT SCH ×3 (07:12→22:45)
[2019-09-09] MEDS: NITROGLYCERIN 2% OINTMENT 1 GM PACKET TP SCH (07:12)
[2019-09-09] MEDS: PANTOPRAZOLE SODIUM 40 MG TABLET.DR PO SCH (07:14)
[2019-09-09] MEDS: INSULIN REG, HUMAN 100 UNIT/ML 3 ML VIAL (PYX) SUBCUT SCH ×4 (08:14→22:46)
[2019-09-09] MEDS: DOCUSATE SODIUM 100 MG CAPSULE PO SCH ×2 (09:16→17:32)
[2019-09-09] MEDS: AMLODIPINE BESYLATE 5 MG TABLET PO SCH ×2 (09:17→22:41)
[2019-09-09 10:48] LABS: ANION GAP 13 (5-19); BLOOD UREA NITROGEN 60 mg/dL (7-20); CARBON DIOXIDE 28 mmol/L (22-30); CHLORIDE 93 mmol/L (98-107); GLUCOSE 259 mg/dL (75-110); POTASSIUM 5.6 mmol/L (3.6-5.0)
--- NOTE | 2019-09-09 11:12 | PDOC H&P ---
History of Present Illness Admission Date/PCP: 09/09/2019 00:40 IRENE SAMANIEGO Patient complains of: Dyspnea History of Present Illness: SAMIA HEALY is a 59 year old female who presents the emergency room with acute dyspnea. She admits gradually developing worsening dyspnea (now severe) since her dialysis was cut short yesterday. Her dyspnea is worsened by exertion and accompanied by orthopnea and intermittent sharp right lower lateral chest pains. She further admits an associated 2-day history of nausea with vomiting, a low-grade fever and watery diarrhea which was the cause of her being unable to finish her dialysis yesterday. She denies other associated or accompanying signs and symptoms. She admits prior similar episodes with episodes of being under dialyzed. She has not identified any additional aggravating or ameliorating factors for her dyspnea. In the emergency room she is found to have peripheral edema and significant dyspnea with hypoxia and clinical evidence of acute heart failure/pulmonary edema. She was also noted to be significantly hyperkalemic and hyperglycemic in the ER. She was subsequently admitted to the hospital for further evaluation and treatment per Dr. Juan Gutierres's instruction as he has agreed to see her and arrange for inpatient dialysis. Past Medical History Cardiac Medical History: Reports: Hypertension Denies: Atrial Fibrillation, Congestive Heart Failure, Coronary Artery Disease, Myocardial Infarction Pulmonary Medical History: Reports: Pneumonia Denies: Asthma, Bronchitis, Chronic Obstructive Pulmonary Disease (COPD) EENT Medical History: Denies: Cataracts, Ears - Hearing aids Neurological Medical History: Denies: Hemorrhagic CVA, Ischemic CVA, Migraine, Seizures Endocrine Medical History: Reports: Diabetes Mellitus Type 2 Denies: Diabetes Mellitus Type 1, Hyperthyroidism, Hypothyroidism Renal/ Medical History: Reports: End Stage Renal Disease Denies: Nephrolithiasis Malignancy Medical History: Reports: None GI Medical History: Denies: Cirrhosis, Crohn's Disease, Gastroesophageal Reflux Disease, Hepatitis, Peptic Ulcer Disease, Ulcerative Colitis Musculoskeltal Medical History: Denies: Arthritis, Fibromyalgia Skin Medical History: Denies: Eczema, Psoriasis Psychiatric Medical History: Denies: Alcohol Dependency, Depression, Substance Abuse, Tobacco Dependency Traumatic Medical History: Reports: None Hematology: Reports: Anemia - Chronic due to ESRD Denies: Bleeding Tendencies Infectious Medical History: Reports: None Past Surgical History Past Surgical History: Reports: Appendectomy, Section, Cholecystectomy, Orthopedic Surgery - Bilateral foot surgery, Tubal Ligation, Vascular Surgery - fistula upper arm (left) Done at [facility] Social History Information Source: Patient Lives with: Alone Smoking Status: Former Smoker Electronic Cigarette use?: No Frequency of Alcohol Use: None Hx Recreational Drug Use: No Drugs: None Hx Prescription Drug Abuse: No - Advance Directive Resuscitation Status: Full Code Surrogate healthcare decision maker:: Leyla Toth Family History Family History: DM, Hypertension. denies: CAD, Malignancy Parental Family History Reviewed: Yes Children Family History Reviewed: No Sibling(s) Family History Reviewed.: Yes Medication/Allergy Home Medications: Amlodipine Besylate [Norvasc 5 mg Tablet] 5 mg PO QHS 05/24/19 Atorvastatin Calcium [Lipitor 20 mg Tablet] 20 mg PO QHS 05/24/19 Gabapentin [Neurontin 100 mg Capsule] 200 mg PO BID MDD 6 CAPS 05/24/19 Insulin Aspart [Novolog] 9 unit SQ AC MDD 50 UNITS 05/24/19 Aspirin [Ecotrin 81 mg EC Tablet] 81 mg PO DAILY 06/02/19 Carvedilol [Coreg 12.5 mg Tablet] 12.5 mg PO Q12 60 Days #60 tablet 06/04/19 Clonidine HCl [Catapres 0.3 mg Tablet] 0.3 mg PO TID 07/22/19 Insulin Aspart [Novolog Flexpen] 0 unit SUBCUT .SLD SCALE 07/22/19 Insulin Degludec [Tresiba] 22 unit SQ QHS 07/22/19 Varenicline Tartrate [Chantix 1 mg Tablet] 1 mg PO BID 07/22/19 Allergies/Adverse Reactions: Penicillins Allergy (Severe, Verified 07/22/19 00:42) rash ciprofloxacin [From Cipro] Allergy (Verified 07/22/19 00:42) shellfish derived Allergy (Verified 07/22/19 00:42) Swelling of tongue oxycodone [From Percocet] Adverse Reaction (Verified 07/22/19 00:42) Review of Systems Constitutional: PRESENT: as per HPI, fever(s). ABSENT: chills Eyes: ABSENT: visual disturbances, other - Eye pain Ears: ABSENT: hearing changes, other - Ear pain Nose, Mouth, and Throat: ABSENT: headache(s), mouth pain, sore throat Cardiovascular: PRESENT: as per HPI, chest pain, dyspnea on exertion, edema, or thropnea Respiratory: PRESENT: as per HPI, dyspnea Gastrointestinal: PRESENT: as per HPI, diarrhea, nausea, vomiting. ABSENT: constipation Genitourinary: ABSENT: dysuria, hematuria Musculoskeletal: ABSENT: back pain, joint swelling, muscle weakness Integumentary: ABSENT: pruritus, rash Neurological: ABSENT: confusion, convulsions, focal weakness, memory loss, syncope Psychiatric: ABSENT: anxiety, depression Endocrine: ABSENT: cold intolerance, heat intolerance, polydipsia, polyphagia, polyuria Hematologic/Lymphatic: ABSENT: easy bleeding, easy bruising Allergic/Immunologic: ABSENT: seasonal rhinorrhea Physical Exam Vital Signs: Temp Pulse Resp BP Pulse Ox 100.4 F 28 H 228/79 H 97 09/09/19 00:28 09/08/19 21:51 09/08/19 21:51 09/08/19 21:51 Intake & Output 09/07/19 09/08/19 09/09/19 23:59 23:59 23:59 Weight 67.8 kg General appearance: PRESENT: cooperative, mild distress - Secondary to dyspnea Head exam: PRESENT: atraumatic, normocephalic Eye exam: PRESENT: conjunctiva pink. ABSENT: conjunctival injection, scleral icterus Ear exam: PRESENT: normal external ear exam. ABSENT: bleeding, drainage Mouth exam: PRESENT: dry mucosa, neck supple Neck exam: PRESENT: JVD - Bilateral at 15 degrees elevation. ABSENT: thyromegaly, tracheal deviation Respiratory exam: PRESENT: rales - Bilateral lower one fourth of lung boone, symmetrical, unlabored Cardiovascular exam: PRESENT: gallop - S4 gallop, RRR. ABSENT: clicks, rubs Pulses: PRESENT: normal radial pulses, other - Left upper arm dialysis shunt Vascular exam: PRESENT: normal capillary refill. ABSENT: pallor GI/Abdominal exam: PRESENT: hypoactive bowel sounds, soft. ABSENT: distended, tenderness Rectal exam: PRESENT: deferred Extremities exam: PRESENT: pedal edema, +2 edema - Bilateral pretibial regions. ABSENT: joint swelling Musculoskeletal exam: ABSENT: deformity, dislocation Neurological exam: PRESENT: alert, oriented to person, oriented to place, oriented to time, oriented to situation, CN II-XII grossly intact. ABSENT: motor sensory deficit Psychiatric exam: PRESENT: appropriate affect, normal mood Skin exam: PRESENT: dry, intact, warm. ABSENT: jaundice, rash, urticaria Results Laboratory Results: 09/08/19 20:45 09/08/19 20:45 09/08/19 09/08/19 09/08/19 20:07 20:37 20:45 WBC 9.9 RBC 3.69 L Hgb 10.7 L Hct 34.0 L MCV 92 MCH 28.9 MCHC 31.4 L RDW 17.6 H Plt Count 333 Seg Neutrophils % 80.1 H VBG pH 7.37 VBG pCO2 53.6 VBG HCO3 30.0 VBG Base Excess 3.7 Sodium Potassium Chloride Carbon Dioxide Anion Gap BUN Creatinine Est GFR ( Amer) Glucose Lactic Acid 2.0 Calcium Total Bilirubin AST Alkaline Phosphatase Total Protein Albumin 09/08/19 09/08/19 20:45 23:44 WBC RBC Hgb Hct MCV MCH MCHC RDW Plt Count Seg Neutrophils % VBG pH VBG pCO2 VBG HCO3 VBG Base Excess Sodium 131.2 L Potassium 6.2 H* Chloride 89 L Carbon Dioxide 29 Anion Gap 13 BUN 53 H Creatinine 5.44 H Est GFR ( Amer) 10 L Glucose 555 H* Lactic Acid 1.7 Calcium 9.2 Total Bilirubin 0.9 AST 20 Alkaline Phosphatase 223 H Total Protein 7.7 Albumin 3.9 Impressions: Chest X-Ray 09/08/19 20:08 IMPRESSION: 1. Overall improvement in lung volumes and aeration with resolution of left lower lobe parenchymal lung opacification. 2. Mild changes of increased intravascular volume which are similar to the previous exam. Abdomen/Pelvis CT 09/08/19 21:16 IMPRESSION: Findings suggesting chronic calcific pancreatitis Diverticulosis without evidence of diverticulitis Mixed infiltrates in the lung bases with bilateral pleural effusions. Findings may reflect pulmonary edema Assessment and Plan - Diagnosis (1) Volume overload Qualifiers: Hypervolemia type: other Qualified Code(s): E87.79 - Other fluid overload Is this a current diagnosis for this admission?: Yes (2) Acute respiratory failure Qualifiers: Respiratory failure complication: unspecified whether with hypoxia or hypercapnia Qualified Code(s): J96.00 - Acute respiratory failure, unspecified whether with hypoxia or hypercapnia Is this a current diagnosis for this admission?: Yes (3) Hypertensive urgency Is this a current diagnosis for this admission?: Yes (4) CKD (chronic kidney disease) stage V requiring chronic dialysis Is this a current diagnosis for this admission?: Yes (5) Acute gastroenteritis Is this a current diagnosis for this admission?: Yes (6) Pleuritic chest pain Is this a current diagnosis for this admission?: Yes (7) Fever Qualifiers: Fever type: unspecified Qualified Code(s): R50.9 - Fever, unspecified Is this a current diagnosis for this admission?: Yes (8) Hyperglycemia due to type 2 diabetes mellitus Qualifiers: Diabetes mellitus termite technician insulin use: unspecified termite technician insulin use status Qualified Code(s): E11.65 - Type 2 diabetes mellitus with hyperglycemia Is this a current diagnosis for this admission?: Yes (9) Diabetes mellitus type 2 in nonobese Is this a current diagnosis for this admission?: Yes (10) Anemia in chronic kidney disease (CKD) Qualifiers: Chronic kidney disease stage: on chronic dialysis Qualified Code(s): N18.6 - End stage renal disease; D63.1 - Anemia in chronic kidney disease; Z99.2 - Dependence on renal dialysis Is this a current diagnosis for this admission?: Yes - Plan Summary Summary: Patient is admitted to telemetry bed on the medical floor she will receive routine supportive and symptomatic cares. Consultation with Dr. Juan Gutierres has been arranged and he will see the patient to provide inpatient hemodialysis as soon as possible later today. In the interim the patient will be treated with nitroglycerin 2% ointment 1 g applied every 6 hours, morphine sulfate 2 mg IV every 1 hour as needed for severe dyspnea, hydralazine 20 mg IV and/or metoprolol 5 mg IV every 4 hours as needed for hypertension. Patient will also receive supplemental oxygen utilizing nasal cannula and/or noninvasive airway pressure support devices such as BiPAP or CPAP to maintain adequate oxygen saturation. Before meals and at bedtime Accu-Cheks will be obtained and hyperglycemia will be treated with sliding scale insulin and a hypoglycemic protocol will be in place. Hyperkalemia will be treated with Kayexalate orally. Patient will be continued on her usual medications as appropriate after dialysis has been completed. - Time Time Spent with patient: 15-24 minutes Smoking Cessation Education: 3 to 10 minutes - Inpatient Certification Based on my medical assessment, after consideration of the patient's comorbidities, presenting symptoms, or acuity I expect that the services needed warrant INPATIENT care.: Yes I certify that my determination is in accordance with my understanding of Medicare's requirements for reasonable and necessary INPATIENT services [42 CFR 412.3e].: Yes Medical Necessity: Significant Comorbidiites Make Outpatient Treatment Too Ri mane, Need Close Monitoring Due to Risk of Patient Decompensation, Need For Continuous Telemetry Monitoring, Risk of Complication if Not Cared For in Hospital
--- NOTE | 2019-09-09 11:58 | PDOC CONSULTATION ---
Consultation Consult Date: 09/09/19 Provider Consulted: Brooke FLORES Consult reason:: ESRDS in CHF with hyperkalemia. History of Present Illness Admission Date/PCP: 09/09/19 00:51 IRENE SAMANIEGO History of Present Illness: SMAIA HEALY is a 59 year old female With a past medical history of ESRD on hemodialysis in the background of diabetes mellitus, hypertension, COPD, History of noncompliance with diet and medications and full dialysis treatments and who has had history of multiple admissions into the hospital with fluid overload as she apparently has his history of intermittent but chronic diarrhea that makes her to cut short her treatments that leaves with fluid overload that pushes into CHF that requires admissions to the hospital. States her last dialysis was on Friday and again it was cut short by episode of diarrhea and now she comes in with a history of progressive shortness of breath without any history of chest pains. However she has a dry cough with intermittent history of nausea and occasional vomiting. She also mentions of a fever without any chills. Evaluations in the ER revealed that she is in heart failure. Her chest x-ray also supports this diagnosis. Labs shows that she was also hyperkalemic with a potassium of 6.2.Today when I see her patient is very sleepy but she is able to lay flat in bed. She denies any acute complaints of any chest pains or abdominal pains. Labs and medications were reviewed.Her influenza serologies were negative. Past Medical History Cardiac Medical History: Reports: Hypertension-primary Denies: Atrial Fibrillation, Coronary Artery Disease, Myocardial Infarction Pulmonary Medical History: Reports: Pneumonia Denies: Asthma, Bronchitis, Chronic Obstructive Pulmonary Disease (COPD) EENT Medical History: Denies: Cataracts, Ears - Hearing aids Neurological Medical History: Denies: Hemorrhagic CVA, Ischemic CVA, Migraine, Seizures Endocrine Medical History: Reports: Diabetes Mellitus Type 2 Denies: Diabetes Mellitus Type 1, Hyperthyroidism, Hypothyroidism Complications of Diabetes: Reports: None Renal/ Medical History: Reports: End Stage Renal Disease, Secondary Hyperparathyroidism Denies: Nephrolithiasis Malignancy Medical History: Reports: None GI Medical History: Denies: Cirrhosis, Crohn's Disease, Gastroesophageal Reflux Disease, Hepatitis, Peptic Ulcer Disease, Ulcerative Colitis Musculoskeltal Medical History: Denies: Arthritis, Fibromyalgia Skin Medical History: Denies: Eczema, Psoriasis Psychiatric Medical History: Denies: Alcohol Dependency, Depression, Substance Abuse, Tobacco Dependency Traumatic Medical History: Reports: None Infectious Medical History: Reports: None Hematology Medical History: Reports Anemia of Chronic Kidney Disease Past Surgical History Past Surgical History: Reports: Appendectomy, Section, Cholecystectomy, Dialysis Access Surgery AVF, Orthopedic Surgery - Bilateral foot surgery, Tubal Ligation, Vascular Surgery - fistula upper arm (left) Done at [facility], Other - Hemodialysis vascular access left upper extremity Social History Lives with: Alone Smoking Status: Former Smoker Electronic Cigarette use?: No Number of Years Smokin Last Time Smoked: 2018 Frequency of Alcohol Use: None Hx Recreational Drug Use: No Drugs: None Hx Prescription Drug Abuse: No - Advance Directive Resuscitation Status: Full Code Family History Parental Family History Reviewed: Yes - Negative for ESRD Children Family History Reviewed: No Sibling(s) Family History Reviewed.: No Medication/Allergy Home Medications: Amlodipine Besylate [Norvasc 5 mg Tablet] 5 mg PO QHS 09/09/19 Aspirin [Ecotrin 81 mg EC Tablet] 81 mg PO DAILY 09/09/19 Atorvastatin Calcium [Lipitor 20 mg Tablet] 20 mg PO QHS 09/09/19 Carvedilol [Coreg 12.5 mg Tablet] 12.5 mg PO Q12 09/09/19 Clonidine HCl [Catapres 0.1 mg Tablet] 0.3 mg PO TID 09/09/19 Gabapentin [Neurontin 100 mg Capsule] 200 mg PO Q12 09/09/19 Insulin Degludec [Tresiba Flextouch U-100] 20 unit SQ QHS 09/09/19 Varenicline Tartrate [Chantix 1 mg Tablet] 1 mg PO BID 09/09/19 Allergies/Adverse Reactions: Penicillins Allergy (Severe, Verified 07/22/19 00:42) rash ciprofloxacin [From Cipro] Allergy (Verified 07/22/19 00:42) shellfish derived Allergy (Verified 07/22/19 00:42) Swelling of tongue oxycodone [From Percocet] Adverse Reaction (Verified 07/22/19 00:42) Review of Systems Constitutional: PRESENT: anorexia, fatigue, fever(s), weakness. ABSENT: chills, headache(s), night sweats Nose, Mouth, and Throat: ABSENT: mouth pain, sore throat Cardiovascular: PRESENT: dyspnea on exertion, orthropnea. ABSENT: chest pain, edema Respiratory: PRESENT: cough, dyspnea. ABSENT: hemoptysis Gastrointestinal: PRESENT: diarrhea - Chronic., nausea, vomiting. ABSENT: abdominal pain, coffee ground emesis, dysphagia, heartburn, hematemesis, hematochezia Genitourinary: ABSENT: dysuria Musculoskeletal: ABSENT: deformity, joint swelling Integumentary: ABSENT: lesions, pruritus, rash Neurological: ABSENT: abnormal movements, abnormal speech, confusion, focal weakness Hematologic/Lymphatic: ABSENT: easy bleeding, easy bruising Physical Exam Vital Signs: Temp Pulse Resp BP Pulse Ox 98.2 F 89 16 133/61 H 94 09/09/19 07:12 09/09/19 07:12 09/09/19 07:12 09/09/19 07:12 09/09/19 07:12 Intake & Output 09/08/19 09/09/19 09/10/19 06:59 06:59 06:59 Output Total 0 Balance 0 Weight 64.7 kg General appearance: PRESENT: no acute distress Eye exam: PRESENT: EOMI, PERRLA. ABSENT: scleral icterus Ear exam: PRESENT: normal external ear exam Mouth exam: PRESENT: moist Neck exam: ABSENT: lymphadenopathy, meningismus, tenderness, thyromegaly, tracheal deviation Respiratory exam: PRESENT: clear to auscultation carlos, crackles - Few basilar crackles.. ABSENT: rhonchi Cardiovascular exam: PRESENT: +S1, +S2 GI/Abdominal exam: PRESENT: normal bowel sounds, soft. ABSENT: organomegaly, tenderness Extremities exam: ABSENT: pedal edema Neurological exam: PRESENT: alert, awake, oriented to person, oriented to place Psychiatric exam: PRESENT: appropriate affect Skin exam: ABSENT: erythema, mottled, rash Results Laboratory Results: 09/08/19 20:45 09/09/19 09:53 09/08/19 09/08/19 09/08/19 20:07 20:37 20:45 WBC 9.9 RBC 3.69 L Hgb 10.7 L Hct 34.0 L MCV 92 MCH 28.9 MCHC 31.4 L RDW 17.6 H Plt Count 333 Seg Neutrophils % 80.1 H VBG pH 7.37 VBG pCO2 53.6 VBG HCO3 30.0 VBG Base Excess 3.7 Sodium Potassium Chloride Carbon Dioxide Anion Gap BUN Creatinine Est GFR ( Amer) Glucose Lactic Acid 2.0 Calcium Total Bilirubin AST Alkaline Phosphatase Total Protein Albumin 09/08/19 09/08/19 09/09/19 20:45 23:44 02:53 WBC RBC Hgb Hct MCV MCH MCHC RDW Plt Count Seg Neutrophils % VBG pH VBG pCO2 VBG HCO3 VBG Base Excess Sodium 131.2 L Potassium 6.2 H* Chloride 89 L Carbon Dioxide 29 Anion Gap 13 BUN 53 H Creatinine 5.44 H Est GFR ( Amer) 10 L Glucose 555 H* Lactic Acid 1.7 1.1 Calcium 9.2 Total Bilirubin 0.9 AST 20 Alkaline Phosphatase 223 H Total Protein 7.7 Albumin 3.9 09/09/19 09:53 WBC RBC Hgb Hct MCV MCH MCHC RDW Plt Count Seg Neutrophils % VBG pH VBG pCO2 VBG HCO3 VBG Base Excess Sodium 133.9 L Potassium 5.6 H Chloride 93 L Carbon Dioxide 28 Anion Gap 13 BUN 60 H Creatinine 6.10 H Est GFR ( Amer) 9 L Glucose 259 H Lactic Acid Calcium 9.0 Total Bilirubin AST Alkaline Phosphatase Total Protein Albumin Impressions: Chest X-Ray 09/08/19 20:08 IMPRESSION: 1. Overall improvement in lung volumes and aeration with resolution of left lower lobe parenchymal lung opacification. 2. Mild changes of increased intravascular volume which are similar to the previous exam. Abdomen/Pelvis CT 09/08/19 21:16 IMPRESSION: Findings suggesting chronic calcific pancreatitis Diverticulosis without evidence of diverticulitis Mixed infiltrates in the lung bases with bilateral pleural effusions. Findings may reflect pulmonary edema Assessment & Plan - Diagnosis (1) ESRD (end stage renal disease) Plan: Clinically she is in congestive heart failure.We will set her up for dialysis now and then repeat again tomorrow. Patient was subsequently seen while undergoing dialysis.He is undergoing dialysis without any issues. Vital signs are stable. Dialysis is being supervised to ensure safe and smooth procedure. Plan to remove between 1 to 2 L of fluid as tolerated in the short dialysis treatment. Dialysis orders were reviewed with the treating dialysis nurse. (2) Hyperkalemia Plan: She should respond to dialysis. Advised on proper dietary modifications but she has been very noncompliant in the past. (3) Congestive heart failure Plan: We will plan to dialyze her now. Orders have been placed. She was seen subsequently on dialysis and she is already feeling her whole lot better half way through dialysis. (4) Diabetes Plan: Poorly controlled. Unfortunately she is a noncompliant patient with her diet. Management as per hospitalist. (5) Hypertension Qualifiers: Plan: Was uncontrolled and severe on admission but seems to be much improved now. Monitor. See response to fluid fluid removal on dialysis.
[2019-09-09] MEDS: CLONIDINE HCL 0.2 MG TABLET PO SCH ×2 (13:03→22:44)
[2019-09-09] MEDS: ACETAMINOPHEN 325 MG TABLET PO PRN (19:38)
--- NOTE | 2019-09-10 03:09 | Progress Note ---
Provider Note Provider Note: Critical care note: 09/09/2019 Critical care start time: 22:08 Critical care issue: Right hip pain (new complaint) I was called by the patient's nurse to evaluate a new complaint of hip pain. Patient indicates that her right hip has been hurting since this morning with gradual worsening of the pain and pain being increased by movement or increased pressure on the right side (involved hip). She denies prior hip pain and history of arthritides. On exam chest shows easy respiration with equal inflation bilaterally and mild fine bibasilar rales present. Heart shows a regular rate and rhythm without murmurs clicks gallops rubs. Abdomen is soft bowel sounds are present in all 4 quadrants. Extremities: right hip shows tenderness to palpation and painful range of motion without deformity or external evidence of trauma. Patient will receive analgesia for the right hip pain utilizing morphine sulfate 4 mg IV every 4 hours on as-needed basis. An x- ray of the right hip will be obtained and orthopedic consultation will be submitted for Dr. Chace Caldera. The patient will be rechecked frequently for any change in her vital signs or increase in her pain. Critical care end time: 03:07 09/10/2019 Total critical care time: 26 minutes
[2019-09-10 05:12] LABS: HEMATOCRIT 29.7 % (36.0-47.0); HEMOGLOBIN 9.9 g/dL (12.0-15.5); MEAN CORPUSCULAR HEMOGLOBIN 30.2 pg (27.0-33.4); MEAN CORPUSCULAR HGB CONC 33.4 g/dL (32.0-36.0); MEAN CORPUSCULAR VOLUME 90 fl (80-97); PLATELET COUNT 266 10^3/uL (150-450); RED BLOOD COUNT 3.29 10^6/uL (3.72-5.28); RED CELL DISTRIBUTION WIDTH 17.1 % (11.5-14.0)
[2019-09-10 05:46] LABS: ANION GAP 13 (5-19); BLOOD UREA NITROGEN 41 mg/dL (7-20); CALCIUM 9.2 mg/dL (8.4-10.2); CARBON DIOXIDE 31 mmol/L (22-30); CHLORIDE 96 mmol/L (98-107)
[2019-09-10 05:58] LABS: GLUCOSE 53 mg/dL (75-110)
[2019-09-10 06:00] LABS: POTASSIUM 4.1 mmol/L (3.6-5.0)
[2019-09-10] MEDS: CLONIDINE HCL 0.2 MG TABLET PO SCH ×3 (06:34→21:49)
[2019-09-10] MEDS: HEPARIN SOD (PORCINE) 5,000 UNIT/ML 1 ML VIAL SUBCUT SCH ×3 (06:58→21:49)
[2019-09-10] MEDS: PANTOPRAZOLE SODIUM 40 MG TABLET.DR PO SCH (06:59)
[2019-09-10] MEDS: INSULIN REG, HUMAN 100 UNIT/ML 3 ML VIAL (PYX) SUBCUT SCH (09:39)
[2019-09-10] MEDS: AMLODIPINE BESYLATE 5 MG TABLET PO SCH ×2 (09:41→21:50)
[2019-09-10] MEDS: DOCUSATE SODIUM 100 MG CAPSULE PO SCH ×2 (09:41→18:19)
--- NOTE | 2019-09-10 09:59 | RADIOLOGY REPORT (SQ) ---
EXAM DESCRIPTION: HIP RIGHT AP/LATERAL COMPLETED DATE/TIME: 09/10/2019 8:14 am REASON FOR STUDY: Acute right hip pain COMPARISON: None. NUMBER OF VIEWS: Two views. TECHNIQUE: AP pelvis and additional frog-leg view of the right hip. LIMITATIONS: None. FINDINGS: MINERALIZATION: Osteopenia. RIGHT HIP: Moderate osteoarthritis. No fracture or dislocation. No worrisome bone lesions. LEFT HIP: Moderate osteoarthritis. No fracture or dislocation. No worrisome bone lesions. PUBIS AND ISCHIUM: No fracture. PELVIS: No fracture. SACRUM: No fracture or dislocation. No worrisome bone lesions. LOWER LUMBAR SPINE: No fracture or dislocation. No worrisome bone lesions. No significant disc disea se. SOFT TISSUES: Vascular calcifications. OTHER: No other significant finding. IMPRESSION: Osteoarthritis. No acute findings. TECHNICAL DOCUMENTATION: JOB ID: [id number] 2011 [email or web address]- All Rights Reserved Reading location - IP/workstation name: [email or web address]
[2019-09-10] MEDS: ACETAMINOPHEN 325 MG TABLET PO PRN (11:26)
[2019-09-10] MEDS: INSULIN LISPRO 100 UNIT/ML 3 ML VIAL SUBCUT SCH ×3 (13:46→21:48)
[2019-09-10] MEDS: NITROGLYCERIN 2% OINTMENT 1 GM PACKET TP SCH ×2 (13:47→18:19)
--- NOTE | 2019-09-10 15:55 | PDOC PROGRESS REPORT ---
Subjective Progress Note for:: 09/10/19 Subjective:: No adverse events overnight. She complained about some hip pain overnight. X- rays were ordered and orthopedic consultation was ordered. Her hip x-rays just show osteoarthritis soft canceled the orthopedics consult. She got hemodialysis yesterday and is feeling some better. They are planning on dialyzing her again today. Reason For Visit: ESRD NEEDING DIALYSIS,HYPERKALEMIA,HYPERGLYCEMIA Physical Exam Vital Signs: Temp Pulse Resp BP Pulse Ox 97.3 F 79 17 129/61 H 93 09/10/19 12:20 09/10/19 14:00 09/10/19 11:21 09/10/19 11:21 09/10/19 11:21 Intake & Output 09/09/19 09/10/19 09/11/19 06:59 06:59 06:59 Intake Total 1042 480 Output Total 2700 Balance -1658 480 Weight 64.7 kg 66 kg General appearance: PRESENT: no acute distress, disheveled, obese Respiratory exam: PRESENT: crackles - Mild bibasilar, symmetrical, unlabored. ABSENT: accessory muscle use, chest wall tenderness, prolonged expiratory phas, retraction, rhonchi, tachypnea, wheezes Cardiovascular exam: PRESENT: RRR, +S1, +S2 Pulses: PRESENT: normal carotid pulses Vascular exam: PRESENT: normal capillary refill GI/Abdominal exam: PRESENT: normal bowel sounds, soft. ABSENT: distended, guarding, rebound, tenderness Extremities exam: ABSENT: clubbing, pedal edema Musculoskeletal exam: PRESENT: normal inspection. ABSENT: deformity Neurological exam: PRESENT: awake, oriented to person, oriented to place, oriented to situation Psychiatric exam: PRESENT: flat affect Skin exam: PRESENT: dry, warm Results Laboratory Results: 09/10/19 04:52 09/10/19 04:52 09/10/19 09/10/19 04:52 04:52 WBC 7.0 RBC 3.29 L Hgb 9.9 L Hct 29.7 L MCV 90 MCH 30.2 MCHC 33.4 RDW 17.1 H Plt Count 266 Sodium 140.0 Potassium 4.1 D Chloride 96 L Carbon Dioxide 31 H Anion Gap 13 BUN 41 H Creatinine 5.99 H Est GFR ( Amer) 9 L Glucose 53 L Calcium 9.2 Magnesium 2.2 Impressions: Chest X-Ray 09/08/19 20:08 IMPRESSION: 1. Overall improvement in lung volumes and aeration with resolution of left lower lobe parenchymal lung opacification. 2. Mild changes of increased intravascular volume which are similar to the previous exam. Abdomen/Pelvis CT 09/08/19 21:16 IMPRESSION: Findings suggesting chronic calcific pancreatitis Diverticulosis without evidence of diverticulitis Mixed infiltrates in the lung bases with bilateral pleural effusions. Findings may reflect pulmonary edema Hip/Pelvis X-Ray 09/10/19 00:00 IMPRESSION: Osteoarthritis. No acute findings. Assessment and Plan - Diagnosis (1) Acute viral syndrome Is this a current diagnosis for this admission?: Yes (2) ESRD (end stage renal disease) Is this a current diagnosis for this admission?: Yes (3) Hyperkalemia Is this a current diagnosis for this admission?: Yes (4) Volume overload Qualifiers: Hypervolemia type: other Qualified Code(s): E87.79 - Other fluid overload Is this a current diagnosis for this admission?: Yes (5) Accelerated hypertension Is this a current diagnosis for this admission?: Yes - Plan Summary Summary: Her blood pressure is now controlled. Her volume overload has improved with hemodialysis. Her hyperkalemia is resolved. Her viral gastroenteritis has resolved. We are going to do dialysis on her again today, and then we can likely send her home tomorrow. - Time Time Spent with patient: 15-24 minutes
--- NOTE | 2019-09-10 16:12 | PDOC CONSULTATION ---
Consultation Consult Date: 09/10/19 Provider Consulted: MARIO ALBERTO ABREU JR History of Present Illness Admission Date/PCP: 09/09/19 00:51 IRENE SAMANIEGO Patient complains of: Right hip pain History of Present Illness: SAMIA HEALY is a 59 year old female who presents with viral gastroenteritis and ESRD on dialysis. She has a history of recent "hip pain" that is localized to the right lower quadrant of her abdomen more than in her groin or back. She denies associated lower extremity pain or weakness. She denies any recent injury. She has been able to ambulated before and after the pain presented in the last week. This did not necessarily effect her ability to ambulate. Pain is crampy and achy in nature, worse with motion, improved with rest. Pain is 5/10. Past Medical History Cardiac Medical History: Reports: Hypertension Denies: Atrial Fibrillation, Congestive Heart Failure, Coronary Artery Disease, Myocardial Infarction Pulmonary Medical History: Reports: Pneumonia Denies: Asthma, Bronchitis, Chronic Obstructive Pulmonary Disease (COPD) EENT Medical History: Denies: Cataracts, Ears - Hearing aids Neurological Medical History: Denies: Hemorrhagic CVA, Ischemic CVA, Migraine, Seizures Endocrine Medical History: Reports: Diabetes Mellitus Type 2 Denies: Diabetes Mellitus Type 1, Hyperthyroidism, Hypothyroidism Renal/ Medical History: Reports: End Stage Renal Disease Denies: Nephrolithiasis Malignancy Medical History: Reports: None GI Medical History: Denies: Cirrhosis, Crohn's Disease, Gastroesophageal Reflux Disease, Hepatitis, Peptic Ulcer Disease, Ulcerative Colitis Musculoskeltal Medical History: Denies: Arthritis, Fibromyalgia Skin Medical History: Denies: Eczema, Psoriasis Psychiatric Medical History: Denies: Alcohol Dependency, Depression, Substance Abuse, Tobacco Dependency Traumatic Medical History: Reports: None Hematology: Reports: Anemia - Chronic due to ESRD Denies: Bleeding Tendencies Infectious Medical History: Reports: None Past Surgical History Past Surgical History: Reports: Appendectomy, Section, Cholecystectomy, Orthopedic Surgery - Bilateral foot surgery, Tubal Ligation, Vascular Surgery - fistula upper arm (left) Done at [facility], Other - Hemodialysis vascular access left upper extremity Social History Lives with: Alone Smoking Status: Former Smoker Electronic Cigarette use?: No Number of Years Smokin Last Time Smoked: 2019 Frequency of Alcohol Use: None Hx Recreational Drug Use: No Drugs: None Hx Prescription Drug Abuse: No - Advance Directive Resuscitation Status: Full Code Family History Family History: DM, Hypertension. denies: CAD, Malignancy Parental Family History Reviewed: No Children Family History Reviewed: NA Sibling(s) Family History Reviewed.: NA Medication/Allergy Home Medications: Amlodipine Besylate [Norvasc 5 mg Tablet] 5 mg PO QHS 09/09/19 Aspirin [Ecotrin 81 mg EC Tablet] 81 mg PO DAILY 09/09/19 Atorvastatin Calcium [Lipitor 20 mg Tablet] 20 mg PO QHS 09/09/19 Carvedilol [Coreg 12.5 mg Tablet] 12.5 mg PO Q12 09/09/19 Clonidine HCl [Catapres 0.1 mg Tablet] 0.3 mg PO TID 09/09/19 Gabapentin [Neurontin 100 mg Capsule] 200 mg PO Q12 09/09/19 Insulin Degludec [Tresiba Flextouch U-100] 20 unit SQ QHS 09/09/19 Varenicline Tartrate [Chantix 1 mg Tablet] 1 mg PO BID 09/09/19 Allergies/Adverse Reactions: Penicillins Allergy (Severe, Verified 07/22/19 00:42) rash ciprofloxacin [From Cipro] Allergy (Verified 07/22/19 00:42) shellfish derived Allergy (Verified 07/22/19 00:42) Swelling of tongue oxycodone [From Percocet] Adverse Reaction (Verified 07/22/19 00:42) Review of Systems Review of Systems: Constitutional: ABSENT: anorexia, chills, night sweats Cardiovascular: ABSENT: chest pain Respiratory: ABSENT: dyspnea Gastrointestinal: ABSENT: vomiting, PRESENT: Abdominal pain, cramps, diarrhea Genitourinary: ABSENT: dysuria Integumentary: ABSENT: rash Neurological: ABSENT: confusion, memory loss, numbness Psychiatric: ABSENT: hallucinations Hematologic/Lymphatic: ABSENT: easy bleeding denies groin pain, reports a history of back pain. Physical Exam Vital Signs: Temp Pulse Resp BP Pulse Ox 97.3 F 79 17 129/61 H 93 09/10/19 12:20 09/10/19 14:00 09/10/19 11:21 09/10/19 11:21 09/10/19 11:21 Intake & Output 09/09/19 09/10/19 09/11/19 06:59 06:59 06:59 Intake Total 1042 480 Output Total 2700 Balance -1658 480 Weight 64.7 kg 66 kg Physical Exam: General appearance: PRESENT: no acute distress, cooperative, well-nourished Head exam: PRESENT: atraumatic, normocephalic Eye exam: PRESENT: EOMI Ear exam: PRESENT: normal external ear exam Mouth exam: PRESENT: neck supple Neck exam: ABSENT: tracheal deviation Respiratory exam: PRESENT: symmetrical, unlabored. ABSENT: accessory muscle u se, wheezes Pulses: PRESENT: normal radial pulses, normal dorsalis pedis pulse Vascular exam: PRESENT: normal capillary refill GI/Abdominal exam: ABSENT: distended, firm PRESENT: TTP to RLQ, positive pain with valsalva Extremities exam: PRESENT: full ROM of bilateral shoulders, elbows wrists, knees , hips and ankles without pain Musculoskeletal exam: PRESENT: full ROM, normal inspection of all 4 extremities aside from that noted below. Neurological exam: PRESENT: alert, awake, oriented to person, oriented to place, oriented to time Psychiatric exam: PRESENT: appropriate affect. ABSENT: agitated Focused psych exam: ABSENT: catatonic Skin exam: PRESENT: intact. ABSENT: dry All as above aside from that noted in the HPI and the following: Right lower extremity -Pulses 2+ distally -Compartments soft -Sensation grossly intact to L3-4-5 S1 -Motor grossly intact to EHL TA gastroc and quad - Negative SLR - No pain with log roll of right hip Results Laboratory Results: 09/10/19 04:52 09/10/19 04:52 09/10/19 09/10/19 04:52 04:52 WBC 7.0 RBC 3.29 L Hgb 9.9 L Hct 29.7 L MCV 90 MCH 30.2 MCHC 33.4 RDW 17.1 H Plt Count 266 Sodium 140.0 Potassium 4.1 D Chloride 96 L Carbon Dioxide 31 H Anion Gap 13 BUN 41 H Creatinine 5.99 H Est GFR ( Amer) 9 L Glucose 53 L Calcium 9.2 Magnesium 2.2 Impressions: Chest X-Ray 09/08/19 20:08 IMPRESSION: 1. Overall improvement in lung volumes and aeration with resolution of left lower lobe parenchymal lung opacification. 2. Mild changes of increased intravascular volume which are similar to the previous exam. Abdomen/Pelvis CT 09/08/19 21:16 IMPRESSION: Findings suggesting chronic calcific pancreatitis Diverticulosis without evidence of diverticulitis Mixed infiltrates in the lung bases with bilateral pleural effusions. Findings may reflect pulmonary edema Hip/Pelvis X-Ray 09/10/19 00:00 IMPRESSION: Osteoarthritis. No acute findings. Assessment & Plan - Diagnosis (1) Right hip pain Is this a current diagnosis for this admission?: Yes Plan: At this time I am not finding a musculoskeletal cause for her right hip pain. Her pain seems to be localized to the right lower quadrant. It is above the ASIS, worse with elevating her head, worse with Valsalva. She has a negative straight leg raise on the right in regards to reproducing back pain or right hip pain however this does also increase some of her right lower quadrant pain. -I would consider other non-musculoskeletal etiologies for pain. This may be associated with her viral gastroenteritis, her diverticulitis, potentially appendicitis, or even a hernia. -She is weightbearing as tolerated without restrictions. Please contact me if any other recommendations are needed.
--- NOTE | 2019-09-10 16:45 | PDOC PROGRESS REPORT ---
Subjective Progress Note for:: 09/10/19 Reason For Visit: Patient currently being seen while undergoing dialysis. She is undergoing dialysis without any issues. She complains of some right abdominal pains in the lower quadrant area. Denies any history of fever or chills. Labs and medications were reviewed. Dialysis orders were reviewed with the treating dialysis nurse. Physical Exam Vital Signs: Temp Pulse Resp BP Pulse Ox 98.4 F 83 17 149/50 H 99 09/10/19 16:10 09/10/19 16:10 09/10/19 16:10 09/10/19 16:10 09/10/19 16:10 Intake & Output 09/09/19 09/10/19 09/11/19 06:59 06:59 06:59 Intake Total 1042 480 Output Total 2700 Balance -1658 480 Weight 64.7 kg 66 kg General appearance: PRESENT: no acute distress Respiratory exam: PRESENT: clear to auscultation carlos. ABSENT: crackles Cardiovascular exam: PRESENT: +S1, +S2 GI/Abdominal exam: PRESENT: normal bowel sounds, soft. ABSENT: organomegaly, tenderness Extremities exam: ABSENT: pedal edema Neurological exam: PRESENT: alert, awake, oriented to person, oriented to place Results Laboratory Results: 09/10/19 04:52 09/10/19 04:52 09/10/19 09/10/19 04:52 04:52 WBC 7.0 RBC 3.29 L Hgb 9.9 L Hct 29.7 L MCV 90 MCH 30.2 MCHC 33.4 RDW 17.1 H Plt Count 266 Sodium 140.0 Potassium 4.1 D Chloride 96 L Carbon Dioxide 31 H Anion Gap 13 BUN 41 H Creatinine 5.99 H Est GFR ( Amer) 9 L Glucose 53 L Calcium 9.2 Magnesium 2.2 Impressions: Chest X-Ray 09/08/19 20:08 IMPRESSION: 1. Overall improvement in lung volumes and aeration with resolution of left lower lobe parenchymal lung opacification. 2. Mild changes of increased intravascular volume which are similar to the previous exam. Abdomen/Pelvis CT 09/08/19 21:16 IMPRESSION: Findings suggesting chronic calcific pancreatitis Diverticulosis without evidence of diverticulitis Mixed infiltrates in the lung bases with bilateral pleural effusions. Findings may reflect pulmonary edema Hip/Pelvis X-Ray 09/10/19 00:00 IMPRESSION: Osteoarthritis. No acute findings. Assessment & Plan - Diagnosis (1) ESRD (end stage renal disease) Is this a current diagnosis for this admission?: Yes Plan: Patient undergoing dialysis without any issues. Vital signs are stable. Dialysis being supervised to ensure safe and smooth procedure. Plan to remove approximately 1-1.4 L of fluid as tolerated. Dialysis orders were reviewed with the treating dialysis nurse. (2) Hyperkalemia Is this a current diagnosis for this admission?: Yes Plan: Currently resolved. (3) Congestive heart failure Plan: Resolved. Monitor. (4) Diabetes Plan: As per hospitalist. (5) Hypertension Qualifiers: Plan: Controlled. Monitor.
[2019-09-10] MEDS ORDERED: ONDANSETRON HCL INJ/PF 4 MG/2 ML SDV IV PRN (22:07)
[2019-09-11] MEDS: NITROGLYCERIN 2% OINTMENT 1 GM PACKET TP SCH ×3 (00:40→13:06)
[2019-09-11] MEDS: CLONIDINE HCL 0.2 MG TABLET PO SCH (05:33)
[2019-09-11] MEDS: PANTOPRAZOLE SODIUM 40 MG TABLET.DR PO SCH (05:33)
[2019-09-11] MEDS: HEPARIN SOD (PORCINE) 5,000 UNIT/ML 1 ML VIAL SUBCUT SCH (06:44)
[2019-09-11] MEDS: INSULIN LISPRO 100 UNIT/ML 3 ML VIAL SUBCUT SCH ×2 (10:01→13:05)
[2019-09-11] MEDS: AMLODIPINE BESYLATE 5 MG TABLET PO SCH (10:06)
[2019-09-11] MEDS: DOCUSATE SODIUM 100 MG CAPSULE PO SCH (10:06)
[2019-09-11 13:00] VITALS: BP 153/63
--- NOTE | 2019-09-11 13:32 | PDOC DISCHARGE SUMMARY ---
Impression - Admit/DC Date/PCP Admission Date/Primary Care Provider: 09/09/19 00:51 IRENE SAMANIEGO Discharge Date: 09/11/19 - Discharge Diagnosis (1) Acute viral syndrome Is this a current diagnosis for this admission?: Yes (2) ESRD (end stage renal disease) Is this a current diagnosis for this admission?: Yes (3) Hyperkalemia Is this a current diagnosis for this admission?: Yes (4) Volume overload Is this a current diagnosis for this admission?: Yes (5) Accelerated hypertension Is this a current diagnosis for this admission?: Yes - Assessment Summary: Her blood pressure is now controlled. Her volume overload has improved with hemodialysis. Her hyperkalemia is resolved. Her viral gastroenteritis has resolved. We are going to do dialysis on her again today, and then we can likely send her home tomorrow. - Additional Information Resuscitation Status: Full Code Discharge Diet: Cardiac, Diabetic Discharge Activity: Activity As Tolerated, Slowly Increase Activity Referrals: IRENE SAMANIEGO MD [Primary Care Provider] - Follow up as needed Home Medications: Amlodipine Besylate [Norvasc 5 mg Tablet] 5 mg PO QHS 09/09/19 Aspirin [Ecotrin 81 mg EC Tablet] 81 mg PO DAILY 09/09/19 Atorvastatin Calcium [Lipitor 20 mg Tablet] 20 mg PO QHS 09/09/19 Carvedilol [Coreg 12.5 mg Tablet] 12.5 mg PO Q12 09/09/19 Clonidine HCl [Catapres 0.1 mg Tablet] 0.3 mg PO TID 09/09/19 Gabapentin [Neurontin 100 mg Capsule] 200 mg PO Q12 09/09/19 Insulin Degludec [Tresiba Flextouch U-100] 20 unit SQ QHS 09/09/19 Varenicline Tartrate [Chantix 1 mg Tablet] 1 mg PO BID 09/09/19 History of Present Illiness History of Present Illness: SAMIA HEALY is a 59 year old female who presents the emergency room with acute dyspnea. She admits gradually developing worsening dyspnea (now severe) since her dialysis was cut short yesterday. Her dyspnea is worsened by exertion and accompanied by orthopnea and intermittent sharp right lower lateral chest pains. She further admits an associated 2-day history of nausea with vomiting, a low-grade fever and watery diarrhea which was the cause of her being unable to finish her dialysis yesterday. She denies other associated or accompanying signs and symptoms. She admits prior similar episodes with episodes of being under dialyzed. She has not identified any additional aggravating or ameliorating factors for her dyspnea. In the emergency room she is found to have peripheral edema and significant dyspnea with hypoxia and clinical evidence of acute heart failure/pulmonary edema. She was also noted to be significantly hyperkalemic and hyperglycemic in the ER. She was subsequently admitted to the hospital for further evaluation and treatment per Dr. Juan Gutierres's instruction as he has agreed to see her and arrange for inpatient dialysis. Hospital Course Hospital Course: She had dialysis 2 days in a row and has had about 4 L total taken off during that time. Her breathing has improved to baseline. She was complaining of some pain in the right hip but it turns out that she just has some arthritis in that hip. When the orthopedist came to see her she was actually complaining of pain in her lower abdomen but her abdominal CT was unremarkable. She was not having any pain or nausea when I saw her this morning. She is been eating and drinking without difficulty. She will resume her usual dialysis treatments on Friday, , and Friday. She will resume her home medications. Her labs and examination were reassuring and she was discharged in stable condition. Physical Exam Vital Signs: Temp Pulse Resp BP Pulse Ox 98.1 F 67 16 153/63 H 95 09/11/19 12:53 09/11/19 12:53 09/11/19 12:53 09/11/19 12:53 09/11/19 12:53 Intake & Output 09/10/19 09/11/19 09/12/19 06:59 06:59 06:59 Intake Total 1042 840 Output Total 2700 0 Balance -1658 840 Weight 66 kg 63.9 kg General appearance: PRESENT: no acute distress, disheveled, obese Respiratory exam: PRESENT: crackles - Mild bibasilar, symmetrical, unlabored. ABSENT: accessory muscle use, chest wall tenderness, prolonged expiratory phas, retraction, rhonchi, tachypnea, wheezes Cardiovascular exam: PRESENT: RRR, +S1, +S2 Pulses: PRESENT: normal carotid pulses Vascular exam: PRESENT: normal capillary refill GI/Abdominal exam: PRESENT: normal bowel sounds, soft. ABSENT: distended, guarding, rebound, tenderness Extremities exam: ABSENT: clubbing, pedal edema Musculoskeletal exam: PRESENT: normal inspection. ABSENT: deformity Neurological exam: PRESENT: awake, oriented to person, oriented to place, oriented to situation Psychiatric exam: PRESENT: flat affect Skin exam: PRESENT: dry, warm Results Laboratory Results: WBC 7.0 10^3/uL (4.0-10.5) 09/10/19 04:52 RBC 3.29 10^6/uL (3.72-5.28) L 09/10/19 04:52 Hgb 9.9 g/dL (12.0-15.5) L 09/10/19 04:52 Hct 29.7 % (36.0-47.0) L 09/10/19 04:52 MCV 90 fl (80-97) 09/10/19 04:52 MCH 30.2 pg (27.0-33.4) 09/10/19 04:52 MCHC 33.4 g/dL (32.0-36.0) 09/10/19 04:52 RDW 17.1 % (11.5-14.0) H 09/10/19 04:52 Plt Count 266 10^3/uL (150-450) 09/10/19 04:52 Lymph % (Auto) 10.0 % (13-45) L 09/08/19 20:45 [place] % (Auto) 6.6 % (3-13) 09/08/19 20:45 Eos % (Auto) 2.0 % (0-6) 09/08/19 20:45 Baso % (Auto) 1.3 % (0-2) 09/08/19 20:45 Absolute Neuts (auto) 7.9 10^3/uL (1.7-8.2) 09/08/19 20:45 Absolute Lymphs (auto) 1.0 10^3/uL (0.5-4.7) 09/08/19 20:45 Absolute Monos (auto) 0.7 10^3/uL (0.1-1.4) 09/08/19 20:45 Absolute Eos (auto) 0.2 10^3/uL (0.0-0.6) 09/08/19 20:45 Absolute Basos (auto) 0.1 10^3/uL (0.0-0.2) 09/08/19 20:45 Seg Neutrophils % 80.1 % (42-78) H 09/08/19 20:45 PT 14.7 SEC (11.4-15.4) 09/08/19 20:45 INR 1.14 09/08/19 20:45 VBG pH 7.37 (7.30-7.42) 09/08/19 20:37 VBG pCO2 53.6 mmHg (35-63) 09/08/19 20:37 VBG HCO3 30.0 mmol/L (20-32) 09/08/19 20:37 VBG Base Excess 3.7 mmol/L 09/08/19 20:37 Sodium 140.0 mmol/L (137-145) 09/10/19 04:52 Potassium 4.1 mmol/L (3.6-5.0) D 09/10/19 04:52 Chloride 96 mmol/L (98-107) L 09/10/19 04:52 Carbon Dioxide 31 mmol/L (22-30) H 09/10/19 04:52 Anion Gap 13 (5-19) 09/10/19 04:52 BUN 41 mg/dL (7-20) H 09/10/19 04:52 Creatinine 5.99 mg/dL (0.52-1.25) H 09/10/19 04:52 Est GFR ( Amer) 9 (>60) L 09/10/19 04:52 Est GFR (MDRD) Non-Af 7 (>60) L 09/10/19 04:52 Glucose 53 mg/dL (75-110) L 09/10/19 04:52 POC Glucose 140 mg/dL (70-110) H 09/11/19 12:01 Hemoglobin A1c % 10.8 % (4.7-6.0) H 09/10/19 04:52 Lactic Acid 1.1 mmol/L (0.7-2.1) 09/09/19 02:53 Calcium 9.2 mg/dL (8.4-10.2) 09/10/19 04:52 Magnesium 2.2 mg/dL (1.6-2.3) 09/10/19 04:52 Total Bilirubin 0.9 mg/dL (0.2-1.3) 09/08/19 20:45 Direct Bilirubin 0.5 mg/dL (0.0-0.4) H 09/08/19 20:45 Neonat Total Bilirubin Not Reportable 09/08/19 20:45 Neonat Direct Bilirubin Not Reportable 09/08/19 20:45 Neonat Indirect Bili Not Reportable 09/08/19 20:45 AST 20 U/L (14-36) 09/08/19 20:45 ALT 13 U/L (<35) 09/08/19 20:45 Alkaline Phosphatase 223 U/L (38-126) H 09/08/19 20:45 Total Protein 7.7 g/dL (6.3-8.2) 09/08/19 20:45 Albumin 3.9 g/dL (3.5-5.0) 09/08/19 20:45 Influenza A (Rapid) NEGATIVE (NEGATIVE) 09/08/19 21:50 Influenza B (Rapid) NEGATIVE (NEGATIVE) 09/08/19 21:50 Impressions: Chest X-Ray 09/08/19 20:08 IMPRESSION: 1. Overall improvement in lung volumes and aeration with resolution of left lower lobe parenchymal lung opacification. 2. Mild changes of increased intravascular volume which are similar to the previous exam. Abdomen/Pelvis CT 09/08/19 21:16 IMPRESSION: Findings suggesting chronic calcific pancreatitis Diverticulosis without evidence of diverticulitis Mixed infiltrates in the lung bases with bilateral pleural effusions. Findings may reflect pulmonary edema Hip/Pelvis X-Ray 09/10/19 00:00 IMPRESSION: Osteoarthritis. No acute findings. Plan Time Spent: Greater than 30 Minutes Stroke Is this a Stroke Patient?: No Acute Heart Failure - Is this a Heart Failure Patient?: No
== END 2019-09-11 14:01 | disposition home or self-care (01) | DRG 682 ==
LOC: ER 19:54 → EH 09-09 00:51 → 3W 09-09 03:59
PROVIDERS: ADMIT Emergency Medicine; ATTEND Emergency Medicine
PROC: 5A1D70Z Performance of Urinary Filtration, Intermittent, Less than 6 Hours Per Day (ICD-10-PCS; principal; 2019-09-09)
DX: I12.0 Hypertensive chronic kidney disease with stage 5 chronic kidney disease or end stage renal disease (principal); N18.6 End stage renal disease; K52.9 Noninfective gastroenteritis and colitis, unspecified; I13.2 Hypertensive heart and chronic kidney disease with heart failure and with stage 5 chronic kidney disease, or end stage renal disease; E87.5 Hyperkalemia; E11.65 Type 2 diabetes mellitus with hyperglycemia; I16.0 Hypertensive urgency; E11.22 Type 2 diabetes mellitus with diabetic chronic kidney disease; D63.1 Anemia in chronic kidney disease; I50.9 Heart failure, unspecified; M16.11 Unilateral primary osteoarthritis, right hip; Z88.0 Allergy status to penicillin; Z88.5 Allergy status to narcotic agent; Z88.1 Allergy status to other antibiotic agents; Z91.013 Allergy to seafood; Z87.891 Personal history of nicotine dependence; Z83.3 Family history of diabetes mellitus; Z82.49 Family history of ischemic heart disease and other diseases of the circulatory system; Z90.49 Acquired absence of other specified parts of digestive tract; Z99.2 Dependence on renal dialysis; Z79.4 Long term (current) use of insulin; Z79.82 Long term (current) use of aspirin
CPT/HCPCS: 36415; 71045; 74176; 80048; 80053; 82803; 82962; 83036; 83605; 83735; 85025; 85027; 85610; 87040; 87804; 93005; 93010; 96365; 96375; 99285; J0360; J0610; J1200; J1644; J1815; J2270; J2405; J3370; J3490

== ENCOUNTER 2019-11-01 16:35 | Inpatient (IN) | payer MEDICARE, MEDICAID ==
[2019-11-01] MEDS ORDERED: ACETAMINOPHEN 325 MG TABLET PO ONE (17:36)
[2019-11-01] MEDS ORDERED: HYDRALAZINE HCL INJ/PF 20 MG/1 ML SDV IV ONE ×2 (17:39→19:59)
[2019-11-01 18:20] LABS: ABSOLUTE BASOPHILS # (AUTO) 0.2 10^3/uL (0.0-0.2); ABSOLUTE EOSINOPHILS # (AUTO) 0.1 10^3/uL (0.0-0.6); BASOPHILS % (AUTO) 1.4 % (0-2); TOTAL CELLS COUNTED % (AUTO) 100 %
[2019-11-01 18:25] LABS: ABSOLUTE LYMPHOCYTES (AUTO) 0.8 10^3/uL (0.5-4.7); ABSOLUTE MONOCYTES (AUTO) 0.6 10^3/uL (0.1-1.4); ABSOLUTE NEUT (AUTO) 11.1 10^3/uL (1.7-8.2); EOSINOPHILS % (AUTO) 0.6 % (0-6); HEMATOCRIT 43.9 % (36.0-47.0); HEMOGLOBIN 14.5 g/dL (12.0-15.5); LYMPHOCYTES % (AUTO) 6.5 % (13-45); MEAN CORPUSCULAR HEMOGLOBIN 31.9 pg (27.0-33.4); MEAN CORPUSCULAR VOLUME 97 fl (80-97); MONOCYTES % (AUTO) 4.9 % (3-13); PLATELET COUNT 286 10^3/uL (150-450); RED BLOOD COUNT 4.55 10^6/uL (3.72-5.28); RED CELL DISTRIBUTION WIDTH 17.1 % (11.5-14.0); SEGMENTED NEUTROPHILS % (AUTO) 86.6 % (42-78); WHITE BLOOD COUNT 12.9 10^3/uL (4.0-10.5)
--- NOTE | 2019-11-01 18:26 | RADIOLOGY REPORT (SQ) ---
EXAM DESCRIPTION: CHEST SINGLE VIEW IMAGES COMPLETED DATE/TIME: 11/01/2019 4:57 pm REASON FOR STUDY: fever COMPARISON: 09/08/2019 EXAM PARAMETERS: NUMBER OF VIEWS: One view. TECHNIQUE: Single frontal radiographic view of the chest acquired. RADIATION DOSE: NA LIMITATIONS: None. FINDINGS: LUNGS AND PLEURA: Lungs are hyperinflated. No opacities, masses or pneumothorax. No pleur al effusion. MEDIASTINUM AND HILAR STRUCTURES: No masses. Contour normal. HEART AND VASCULAR STRUCTURES: Heart normal in size. Normal vasculature. BONES: No acute findings. HARDWARE: New large bore central venous catheter with tip at the cavoatrial junction. OTHER: No other significant finding. IMPRESSION: No acute cardiopulmonary disease. New right central venous catheter. TECHNICAL DOCUMENTATION: JOB ID: [id number] 2010 [employer]- All Rights Reserved Reading location - IP/workstation name: [email or web address]
--- NOTE | 2019-11-01 18:32 | RADIOLOGY REPORT (SQ) ---
EXAM DESCRIPTION: CT HEAD WITHOUT IMAGES COMPLETED DATE/TIME: 11/01/2019 5:17 pm REASON FOR STUDY: AMS COMPARISON: None. TECHNIQUE: Axial images acquired through the brain without intravenous contrast. Images reviewed wi th bone, brain and subdural windows. Additional sagittal and coronal reconstructions were generated. Images stored on PACS. All CT scanners at this facility use dose modulation, iterative reconstruction, and/or weight based d osing when appropriate to reduce radiation dose to as low as reasonably achievable (ALARA). [facility]: Dose Right [facility]: CareDose [facility]: Dose Right [facility]: Teradose 4D [facility]: [place] [employer] RADIATION DOSE: CT Rad equipment meets quality standard of care and radiation dose reduction techniq ues were employed. CTDIvol: 53.2 - 55.2 mGy. DLP: 1965 mGy-cm. mGy. LIMITATIONS: CT head 06/02/2019 FINDINGS: VENTRICLES: Normal size and contour. CEREBRUM: No masses. No hemorrhage. No midline shift. No evidence for acute infarction. Normal gra y/white matter differentiation. No areas of low density in the white matter. CEREBELLUM: No masses. No hemorrhage. No alteration of density. No evidence for acute infarction. EXTRAAXIAL SPACES: No fluid collections. No masses. ORBITS AND GLOBE: No intra- or extraconal masses. Normal contour of globe without masses. CALVARIUM: No fracture. PARANASAL SINUSES: No fluid or mucosal thickening. SOFT TISSUES: No mass or hematoma. OTHER: No other significant finding. IMPRESSION: No acute intracranial hemorrhage, mass, or evidence of acute territorial infarct. EVIDENCE OF ACUTE STROKE: NO. COMMENT: Quality ID # [id number]: Final reports with documentation of one or more dose reduction techniques (e.g., Automated exposure control, adjustment of the mA and/or kV according to patient size, use of iterative reconstruction technique) TECHNICAL DOCUMENTATION: JOB ID: [id number] 2010 [employer]- All Rights Reserved Reading location - IP/workstation name: [email or web address]
[2019-11-01 18:58] LABS: ALBUMIN 3.8 g/dL (3.5-5.0); ALKALINE PHOSPHATASE 128 U/L (38-126); ANION GAP 14 (5-19); ASPARTATE AMINO TRANSFERASE 27 U/L (14-36); BILIRUBIN,DIRECT 0.6 mg/dL (0.0-0.4); BILIRUBIN,TOTAL 1.1 mg/dL (0.2-1.3); BLOOD UREA NITROGEN 52 mg/dL (7-20); CALCIUM 9.1 mg/dL (8.4-10.2); CARBON DIOXIDE 29 mmol/L (22-30); CHLORIDE 84 mmol/L (98-107); POTASSIUM 5.3 mmol/L (3.6-5.0); TOTAL PROTEIN 7.3 g/dL (6.3-8.2)
[2019-11-01 19:36] LABS: GLUCOSE 668 mg/dL (75-110)
[2019-11-01] MEDS ORDERED: INSULIN REG, HUMAN 100 UNIT/ML 3 ML VIAL (PYX) IV ONE (19:41)
[2019-11-01] MEDS ORDERED: NORMAL SALINE 500 ML IV ONE (19:42)
--- NOTE | 2019-11-01 19:43 | ER Document Report ---
ED Fever - General TRAVEL OUTSIDE OF THE [place] IN LAST 30 DAYS: No <SUMAN TEE - Last Filed: 11/01/19 21:12> <ELICIAYUSRA Ashwin - Last Filed: 11/01/19 22:27> - General Chief Complaint: Fever Stated Complaint: COUGH,FEVER Time Seen by Provider: 11/01/19 16:42 Primary Care Provider: IRENE SAMANIEGO MD [Primary Care Provider] - Follow up as needed Notes: Patient is a 59-year-old female with end-stage renal disease, diabetes, hypertension, CVA, TIA, and other chronic medical problems who presents to the emergency department with a fever and a cough.Patient states that her fever started today. She took some Tylenol at 1400. Patient also has generalized body aches. She is a Friday, , Friday dialysis patient. States that she has not been missing her dialysis. (SUMAN TEE) - Related Data Allergies/Adverse Reactions: Penicillins Allergy (Severe, Verified 11/01/19 17:04) rash ciprofloxacin [From Cipro] Allergy (Verified 11/01/19 17:04) shellfish derived Allergy (Verified 11/01/19 17:04) Swelling of tongue oxycodone [From Percocet] Adverse Reaction (Verified 11/01/19 17:04) Past Medical History - Social History Smoking Status: Unknown if Ever Smoked Family History: DM, Hypertension. denies: CAD, Malignancy Patient has suicidal ideation: No Patient has homicidal ideation: No - Past Medical History Cardiac Medical History: Reports: Hx Hypertension Denies: Hx Atrial Fibrillation, Hx Congestive Heart Failure, Hx Coronary Artery Disease, Hx Heart Attack Pulmonary Medical History: Reports: Hx Pneumonia Denies: Hx Asthma, Hx Bronchitis, Hx COPD Neurological Medical History: Denies: Hx Cerebrovascular Accident, Hx Migraine, Hx Seizures Endocrine Medical History: Reports: Hx Diabetes Mellitus Type 2. Denies: Hx Diabetes Mellitus Type 1, Hx Hyperthyroidism, Hx Hypothyroidism Renal/ Medical History: Reports: Hx End Stage Renal Disease, Hx Hemodialysis. Denies: Hx Peritoneal Dialysis GI Medical History: Denies: Hx Cirrhosis, Hx Crohn's Disease, Hx Gastroesophageal Reflux Disease, Hx Hepatitis, Hx Ulcerative Colitis Musculoskeletal Medical History: Denies Hx Arthritis, Denies Hx Fibromyalgia Skin Medical History: Denies Hx Eczema, Denies Hx Psoriasis Psychiatric Medical History: Denies: Hx Depression Infectious Medical History: Denies: Hx Hepatitis Past Surgical History: Reports: Hx Appendectomy, Hx Section, Hx Cholecystectomy, Hx Orthopedic Surgery - Bilateral foot surgery, Hx Tubal Lig ation, Hx Vascular Surgery - fistula upper arm (left) Done at [facility], Other - Hemodialysis vascular access left upper extremity - Immunizations Hx Diphtheria, Pertussis, Tetanus Vaccination: No Hx Pneumococcal Vaccination: 07/21/16 <SUMAN TEE - Last Filed: 11/01/19 21:12> Review of Systems - Review of Systems -: Yes ROS unobtainable due to patient's medical condition <SUMAN TEE - Last Filed: 11/01/19 21:12> Physical Exam <SUMAN TEE - Last Filed: 11/01/19 21:12> - Vital signs Vitals: Temp Pulse Resp BP Pulse Ox 101.3 F H 100 20 248/70 H 100 11/01/19 16:45 11/01/19 16:45 11/01/19 16:45 11/01/19 16:45 11/01/19 16:45 - Notes Notes: PHYSICAL EXAMINATION: GENERAL: Appears well, healthy, well-nourished, no acute distress. HEAD: Normocephalic, atraumatic. EYES: PERRL, conjunctiva normal, all extraocular movements intact, sclera nonicteric ENT: Dry mucous membranes. NECK: Supple, no noticeable swelling, redness, rash. Normal range of motion. LUNGS: Equal breath sounds bilaterally and clear to auscultation. No wheezes rales or rhonchi. CARDIOVASCULAR: S1-S2, regular rate, regular rhythm. Radial pulses 2+, normal. ABDOMEN: Normoactive bowel sounds. Soft, nontender, no guarding, no rebound tenderness, and no masses palpated. EXTREMITIES: Normal strength and range of motion, no pitting or edema. No cyanosis. NEUROLOGICAL: Transient twitching of face. Transient weakness on right side. PSYCH: Normal mood, normal affect. SKIN: Warm, dry. No rash, lesions, ulcerations noted. Normal skin turgor. (SUMAN TEE) Course - Laboratory Result Diagrams: 11/01/19 18:07 11/01/19 18:07 <SUMAN TEE - Last Filed: 11/01/19 21:12> - Laboratory Result Diagrams: 11/01/19 18:07 11/01/19 18:07 <YUSRA RUBI - Last Filed: 11/01/19 22:27> - Re-evaluation Re-evalutation: 11/01/19 20:28 I was able to speak to the patient's daughter, Leyla who is on her next of kin list and she explained to me that the patient was having TIA symptoms starting at 10:00 this morning. The patient's son is her primary leadite worker and according to the daughter, the daughter does not live with the patient. 11/01/19 20:30 Patient has a leukocytosis of 12,900 with a left shift. No anemia noted. Patient's chemistries show hyperglycemia with a glucose of 668. She is also hyponatremic with a sodium of 126.7. Potassium is 5.3. Patient will receive 10 units of regular insulin IV and she will also be given 500 mils of IV fluids. Chest x-ray is normal. No pneumonia noted. Report given to VANDANA Bernabe. She will follow-up on the patient's urinalysis and lactic acid. 11/01/19 21:05 The patient's son, Isidoro, called and spoke with him in regards to his mother. He states that he moved from [facility] down here to [place] to help his mother with care. He states that at 10:00 this morning his mother was explaining to him what a TIA was and she ended up having the same symptoms and went to go lay down. Patient's son states that she has not been the same since and she ended up twitching multiple times, even on the way to the hospital. (SUMAN TEE) - Vital Signs Vital signs: Temp Pulse Resp BP Pulse Ox 102.5 F H 101 H 17 221/75 H 98 11/01/19 21:21 11/01/19 18:00 11/01/19 20:15 11/01/19 20:15 11/01/19 20:15 - Laboratory Laboratory results interpreted by me: 11/01/19 11/01/19 11/01/19 18:07 18:07 20:10 WBC 12.9 H RDW 17.1 H Lymph % (Auto) 6.5 L Absolute Neuts (auto) 11.1 H Seg Neutrophils % 86.6 H Sodium 126.7 L Potassium 5.3 H Chloride 84 L BUN 52 H Creatinine 5.92 H Est GFR ( Amer) 9 L Est GFR (MDRD) Non-Af 7 L Glucose 668 H* POC Glucose Lactic Acid Direct Bilirubin 0.6 H Alkaline Phosphatase 128 H Urine Protein >=500 H Urine Glucose (UA) >=500 H Urine Ketones TRACE H Urine Blood SMALL H 11/01/19 11/01/19 21:08 21:25 WBC RDW Lymph % (Auto) Absolute Neuts (auto) Seg Neutrophils % Sodium Potassium Chloride BUN Creatinine Est GFR ( Amer) Est GFR (MDRD) Non-Af Glucose POC Glucose 467 H* Lactic Acid 2.6 H Direct Bilirubin Alkaline Phosphatase Urine Protein Urine Glucose (UA) Urine Ketones Urine Blood Discharge <SUMAN TEE - Last Filed: 11/01/19 21:12> - Discharge Admitting Provider: Dotty (Hospitalist) Unit Admitted: IMCU <YUSRA RUBI - Last Filed: 11/01/19 22:27> - Discharge Clinical Impression: Cough, Hyperglycemia, Uncontrolled hypertension Fever Qualifiers: Fever type: unspecified Qualified Code(s): R50.9 - Fever, unspecified Condition: Stable Disposition: ADMITTED INPATIENT Referrals: IRENE SAMANIEGO MD [Primary Care Provider] - Follow up as needed
[2019-11-01 20:51] LABS: APPEARANCE,URINE CLEAR; BILIRUBIN,URINE NEGATIVE (NEGATIVE); COLOR,URINE YELLOW; GLUCOSE, URINE >=500 mg/dL (NEGATIVE); KETONES,URINE TRACE mg/dL (NEGATIVE); LEUKOCYTE ESTERASE,URINE NEGATIVE (NEGATIVE); NITRITE,URINE NEGATIVE (NEGATIVE); PROTEIN,URINE >=500 mg/dL (NEGATIVE); URINE SPECIFIC GRAVITY 1.014; UROBILINOGEN,URINE NEGATIVE mg/dL (<2.0)
[2019-11-01] MEDS ORDERED: IBUPROFEN 600 MG TABLET PO ONE (21:43)
[2019-11-01] MEDS ORDERED: KETOROLAC TROMETHAMINE INJ/PF 30 MG/1 ML SDV IV ONE (22:33)
[2019-11-01] MEDS ORDERED: AZITHROMYCIN 500 MG in DEXTROSE 5%-WATER 250 ML IV ONE (23:00)
[2019-11-01 23:06] LABS: A TYPE INFLUENZA AG NEGATIVE (NEGATIVE); B INFLUENZA AG NEGATIVE (NEGATIVE)
[2019-11-01] MEDS ORDERED: MAGNESIUM HYDROXIDE SUSP 30 ML UDCUP PO PRN (23:40)
[2019-11-01] MEDS ORDERED: MAG HYDROX/AL HYDROX/SIMETH SUSP 30 ML UDCUP PO PRN (23:40)
[2019-11-01] MEDS ORDERED: AZITHROMYCIN INJ 500 MG VIAL IV SCH (23:45)
[2019-11-01] MEDS ORDERED: METOPROLOL TARTRATE PF/INJ 5 MG/5 ML SDV IV PRN (23:46)
[2019-11-01] MEDS ORDERED: GUAIFENESIN SYRP 200 MG/10 ML UDC PO PRN (23:46)
[2019-11-02] MEDS ORDERED: AZITHROMYCIN INJ 500 MG VIAL IV ONE (00:05)
[2019-11-02] MEDS ORDERED: CEFEPIME 2 GM/D5W RTU 2 GM/50 ML RTUPB IV ONE (00:15)
[2019-11-02] MEDS: NITROGLYCERIN 2% OINTMENT 1 GM PACKET TP SCH ×4 (00:18→17:12)
[2019-11-02] MEDS ORDERED: ACETAMINOPHEN 650 MG SUPP.RECT PR ONE (00:55)
[2019-11-02] MEDS ORDERED: GLUCAGON,HUMAN RECOMB 1 MG INJ IM PRN (01:47)
[2019-11-02] MEDS ORDERED: DEXTROSE 40% GEL 15 GM TUBE PO PRN ×2 (01:47)
[2019-11-02] MEDS ORDERED: DEXTROSE 50%-WATER 25 GM/50 ML DISP.SYRIN IV PRN ×2 (01:47)
[2019-11-02] MEDS: INSULIN REG, HUMAN 100 UNIT/ML 3 ML VIAL (PYX) SUBCUT SCH ×6 (02:12→22:34)
--- NOTE | 2019-11-02 03:17 | PDOC H&P ---
History of Present Illness Admission Date/PCP: 11/01/2019 22:22 IRENE SAMANIEGO Patient complains of: Cough History of Present Illness: SAMIA HEALY is a 59 year old female ESRD patient, who presented to the emergency room with a 2-day history of cough. She and her family admit a nonproductive cough for the last 2 days with an accompanying subjective fever beginning on the morning of admission and generalized malaise. No further admit the associated symptoms of transient right-sided weakness and transient right facial twitching on the morning of admission. They deny other associated or accompanying signs and symptoms. They admit prior similar episodes related to her numerous chronic medical illnesses. They have not identified any aggravating or ameliorating factors for her cough. In the emergency room she was found to have an elevated white count of 12,900 with an elevated lactic acid of 2.6 and a blood sugar of 668. She was also noted to be hypertensive, tachycardic and febrile with a maximum fever of 102.5 F. She was subsequently admitted to the hospital for further evaluation and treatment. Past Medical History Cardiac Medical History: Reports: Hypertension Denies: Atrial Fibrillation, Congestive Heart Failure, Coronary Artery Disease, Myocardial Infarction Pulmonary Medical History: Reports: Pneumonia Denies: Asthma, Bronchitis, Chronic Obstructive Pulmonary Disease (COPD) EENT Medical History: Denies: Cataracts, Ears - Hearing aids Neurological Medical History: Reports: Other - TIAs Denies: Hemorrhagic CVA, Ischemic CVA, Migraine, Seizures Endocrine Medical History: Reports: Diabetes Mellitus Type 2 Denies: Diabetes Mellitus Type 1, Hyperthyroidism, Hypothyroidism Renal/ Medical History: Reports: End Stage Renal Disease Denies: Nephrolithiasis Malignancy Medical History: Reports: None GI Medical History: Denies: Cirrhosis, Crohn's Disease, Gastroesophageal Reflux Disease, Hepatitis, Ulcerative Colitis Musculoskeltal Medical History: Denies: Arthritis, Fibromyalgia Skin Medical History: Denies: Eczema, Psoriasis Psychiatric Medical History: Denies: Alcohol Dependency, Depression, Substance Abuse, Tobacco Dependency Traumatic Medical History: Reports: None Hematology: Reports: Anemia - Chronic due to ESRD Denies: Bleeding Tendencies Infectious Medical History: Reports: None Past Surgical History Past Surgical History: Reports: Appendectomy, Section, Cholecystectomy, Orthopedic Surgery - Bilateral foot surgery, Tubal Ligation, Vascular Surgery - fistula upper arm (left) Done at [facility], Other - Hemodialysis vascular access left upper extremity Social History Information Source: Patient Lives with: Family Smoking Status: Former Smoker Electronic Cigarette use?: No Frequency of Alcohol Use: None Hx Recreational Drug Use: No Drugs: None Hx Prescription Drug Abuse: No - Advance Directive Resuscitation Status: Full Code Surrogate healthcare decision maker:: Leylamaria elena Toth Family History Family History: DM, Hypertension. denies: CAD, Malignancy Parental Family History Reviewed: Yes Children Family History Reviewed: No Sibling(s) Family History Reviewed.: Yes Medication/Allergy Home Medications: Amlodipine Besylate [Norvasc 5 mg Tablet] 5 mg PO QHS 09/09/19 Aspirin [Ecotrin 81 mg EC Tablet] 81 mg PO DAILY 09/09/19 Atorvastatin Calcium [Lipitor 20 mg Tablet] 20 mg PO QHS 09/09/19 Carvedilol [Coreg 12.5 mg Tablet] 12.5 mg PO Q12 09/09/19 Clonidine HCl [Catapres 0.1 mg Tablet] 0.3 mg PO TID 09/09/19 Gabapentin [Neurontin 100 mg Capsule] 200 mg PO Q12 09/09/19 Insulin Degludec [Tresiba Flextouch U-100] 20 unit SQ QHS 09/09/19 Varenicline Tartrate [Chantix 1 mg Tablet] 1 mg PO BID 09/09/19 Allergies/Adverse Reactions: Penicillins Allergy (Severe, Verified 11/01/19 17:04) rash ciprofloxacin [From Cipro] Allergy (Verified 11/01/19 17:04) shellfish derived Allergy (Verified 11/01/19 17:04) Swelling of tongue oxycodone [From Percocet] Adverse Reaction (Verified 11/01/19 17:04) Review of Systems Constitutional: PRESENT: as per HPI, fever(s), other - Malaise Eyes: ABSENT: visual disturbances, other - Eye pain Ears: ABSENT: hearing changes, other - Ear pain Nose, Mouth, and Throat: ABSENT: headache(s), sore throat Cardiovascular: ABSENT: chest pain, palpitations Respiratory: PRESENT: cough. ABSENT: dyspnea, sputum Gastrointestinal: ABSENT: abdominal pain, constipation, diarrhea, nausea, vomiting Genitourinary: ABSENT: dysuria, hematuria Musculoskeletal: ABSENT: back pain, joint swelling Integumentary: ABSENT: pruritus, rash Neurological: PRESENT: focal weakness - Transient right-sided weakness, other - Transient right facial twitching. ABSENT: confusion, convulsions, memory loss, syncope Psychiatric: ABSENT: anxiety, depression Endocrine: ABSENT: cold intolerance, heat intolerance Hematologic/Lymphatic: ABSENT: easy bleeding, easy bruising Allergic/Immunologic: ABSENT: seasonal rhinorrhea Physical Exam Vital Signs: Temp Pulse Resp BP Pulse Ox 102.5 F H 101 H 17 221/75 H 98 11/01/19 21:21 11/01/19 18:00 11/01/19 20:15 11/01/19 20:15 11/01/19 20:15 Intake & Output 10/30/19 10/31/19 11/01/19 23:59 23:59 23:59 Intake Total 500 Balance 500 Weight 160 kg General appearance: PRESENT: cooperative, mild distress - Secondary to fever, morbidly obese Head exam: PRESENT: atraumatic, normocephalic Eye exam: ABSENT: conjunctival injection, scleral icterus Ear exam: PRESENT: normal external ear exam. ABSENT: bleeding, drainage Mouth exam: PRESENT: dry mucosa, neck supple Neck exam: ABSENT: thyromegaly, tracheal deviation Respiratory exam: PRESENT: rhonchi - Rare scattered rhonchi, symmetrical, unlabored Cardiovascular exam: PRESENT: RRR. ABSENT: clicks, gallop, rubs Pulses: PRESENT: normal radial pulses, normal dorsalis pedis pul Vascular exam: PRESENT: normal capillary refill. ABSENT: pallor GI/Abdominal exam: PRESENT: normal bowel sounds, soft. ABSENT: tenderness Rectal exam: PRESENT: deferred Extremities exam: PRESENT: pedal edema - Minimal, other - Minimal bilateral pretibial edema Neurological exam: PRESENT: alert, oriented to person, oriented to place, oriented to time, oriented to situation, CN II-XII grossly intact. ABSENT: motor sensory deficit Psychiatric exam: PRESENT: appropriate affect, normal mood Skin exam: PRESENT: dry, intact, warm. ABSENT: jaundice, rash, urticaria Results Laboratory Results: 11/01/19 18:07 11/01/19 18:07 11/01/19 11/01/19 11/01/19 18:07 18:07 20:10 WBC 12.9 H RBC 4.55 Hgb 14.5 Hct 43.9 MCV 97 MCH 31.9 MCHC 33.0 RDW 17.1 H Plt Count 286 Seg Neutrophils % 86.6 H Sodium 126.7 L Potassium 5.3 H Chloride 84 L Carbon Dioxide 29 Anion Gap 14 BUN 52 H Creatinine 5.92 H Est GFR ( Amer) 9 L Glucose 668 H* Lactic Acid Calcium 9.1 Total Bilirubin 1.1 AST 27 Alkaline Phosphatase 128 H Total Protein 7.3 Albumin 3.8 Urine Color YELLOW Urine Appearance CLEAR Urine pH 8.0 Ur Specific Ace 1.014 Urine Protein >=500 H Urine Glucose (UA) >=500 H Urine Ketones TRACE H Urine Blood SMALL H Urine Nitrite NEGATIVE Ur Leukocyte Esterase NEGATIVE Urine WBC (Auto) 2 Urine RBC (Auto) 25 11/01/19 21:08 WBC RBC Hgb Hct MCV MCH MCHC RDW Plt Count Seg Neutrophils % Sodium Potassium Chloride Carbon Dioxide Anion Gap BUN Creatinine Est GFR ( Amer) Glucose Lactic Acid 2.6 H Calcium Total Bilirubin AST Alkaline Phosphatase Total Protein Albumin Urine Color Urine Appearance Urine pH Ur Specific Ace Urine Protein Urine Glucose (UA) Urine Ketones Urine Blood Urine Nitrite Ur Leukocyte Esterase Urine WBC (Auto) Urine RBC (Auto) Impressions: Chest X-Ray 11/01/19 17:07 IMPRESSION: No acute cardiopulmonary disease. New right central venous catheter. Head CT 11/01/19 17:36 IMPRESSION: No acute intracranial hemorrhage, mass, or evidence of acute territorial infarct. EVIDENCE OF ACUTE STROKE: NO. Assessment and Plan - Diagnosis (1) Fever Qualifiers: Fever type: unspecified Qualified Code(s): R50.9 - Fever, unspecified Is this a current diagnosis for this admission?: Yes (2) Hypertensive urgency Is this a current diagnosis for this admission?: Yes (3) Cough Is this a current diagnosis for this admission?: Yes (4) Acute hyperglycemia Is this a current diagnosis for this admission?: Yes (5) Diabetes mellitus type 2 in nonobese Is this a current diagnosis for this admission?: Yes (6) CKD (chronic kidney disease) stage V requiring chronic dialysis Is this a current diagnosis for this admission?: Yes - Plan Summary Summary: Patient is admitted to a telemetry bed on the medical floor where she will receive routine supportive and symptomatic cares. A nephrology consultation will be obtained with Dr. Mortensen. She will be treated with IV cefepime and azithromycin. Accu-Cheks to be performed every 4 hours with sliding scale insulin coverage for hyperglycemia and a hypoglycemic protocol in place. Hydralazine and metoprolol will be administered IV as needed to maintain a systolic blood pressure less than 160 and a diastolic blood pressure less than 100. Patient's fever will be treated with acetaminophen as required. Patient may also received external cooling to help reduce her fever. CBCs, metabolic profiles and magnesium levels to be followed on an as-needed basis. Neurochecks will be performed every 4 hours. Serial lactic acid levels will be obtained. Blood and urine cultures are pending. - Time Time Spent with patient: 15-24 minutes Medications reviewed and adjusted accordingly: Yes Anticipated discharge: Home - Inpatient Certification Based on my medical assessment, after consideration of the patient's comorbidities, presenting symptoms, or acuity I expect that the services needed warrant INPATIENT care.: Yes I certify that my determination is in accordance with my understanding of Medicare's requirements for reasonable and necessary INPATIENT services [42 CFR 412.3e].: Yes Medical Necessity: Significant Comorbidiites Make Outpatient Treatment Too Risky, Need Close Monitoring Due to Risk of Patient Decompensation, Need For Continuous Telemetry Monitoring, Need for Neurological Checks, Need for IV Antibiotics, Risk of Complication if Not Cared For in Hospital
[2019-11-02] MEDS: HEPARIN SOD (PORCINE) 5,000 UNIT/ML 1 ML VIAL SUBCUT SCH ×3 (06:16→22:43)
[2019-11-02 06:23] LABS: HEMATOCRIT 36.2 % (36.0-47.0); MEAN CORPUSCULAR HGB CONC 33.7 g/dL (32.0-36.0); MEAN CORPUSCULAR VOLUME 95 fl (80-97); PLATELET COUNT 229 10^3/uL (150-450); RED BLOOD COUNT 3.82 10^6/uL (3.72-5.28); RED CELL DISTRIBUTION WIDTH 17.8 % (11.5-14.0); WHITE BLOOD COUNT 11.9 10^3/uL (4.0-10.5)
[2019-11-02] MEDS: PANTOPRAZOLE SODIUM 40 MG TABLET.DR PO SCH (06:24)
[2019-11-02 06:27] LABS: HEMOGLOBIN 12.2 g/dL (12.0-15.5)
[2019-11-02 06:43] LABS: CARBON DIOXIDE 24 mmol/L (22-30)
[2019-11-02 06:58] LABS: ANION GAP 18 (5-19); BLOOD UREA NITROGEN 68 mg/dL (7-20); CALCIUM 8.7 mg/dL (8.4-10.2); CHLORIDE 88 mmol/L (98-107); GLUCOSE 232 mg/dL (75-110)
[2019-11-02 07:02] LABS: POTASSIUM 4.2 mmol/L (3.6-5.0)
[2019-11-02] MEDS ORDERED: CEFEPIME 2 GM/D5W RTU 2 GM/50 ML RTUPB IV SCH ×3 (10:00)
[2019-11-02] MEDS ORDERED: CEFAZOLIN SODIUM 2 GM in DEXTROSE 5%-WATER 100 ML IV SCH (10:00)
--- NOTE | 2019-11-02 12:09 | PDOC PROGRESS REPORT ---
Subjective Progress Note for:: 11/02/19 Subjective:: Patient is quite sleepy. She was admitted late last night. She appears comfortable. T-max was 102.5 degrees earlier this morning. I did speak with Dr. Mortensen earlier today regarding the patient and her dialysis schedule. Reason For Visit: FEVER, HYPERTENSIVE URGENCY, HYPERGLYCEMIA AND Physical Exam Vital Signs: Temp Pulse Resp BP Pulse Ox 98.6 F 79 24 H 120/43 L 99 11/02/19 08:44 11/02/19 08:44 11/02/19 08:44 11/02/19 08:44 11/02/19 08:44 Intake & Output 11/01/19 11/02/19 11/03/19 06:59 06:59 06:59 Intake Total 800 Output Total 0 Balance 800 Weight 59.6 kg General appearance: PRESENT: no acute distress, cooperative, well-developed Head exam: PRESENT: atraumatic, normocephalic Eye exam: PRESENT: conjunctiva pale. ABSENT: scleral icterus Ear exam: PRESENT: normal external ear exam. ABSENT: bleeding, drainage Mouth exam: PRESENT: moist, tongue midline Respiratory exam: PRESENT: clear to auscultation carlos - Anteriorly, symmetrical, unlabored. ABSENT: rales, rhonchi, tachypnea, wheezes Cardiovascular exam: PRESENT: RRR, +S1, +S2 GI/Abdominal exam: PRESENT: normal bowel sounds, soft. ABSENT: distended, gu arding, tenderness Rectal exam: PRESENT: deferred Musculoskeletal exam: PRESENT: ambulatory, normal inspection Neurological exam: PRESENT: awake. ABSENT: alert - Quite sleepy this morning, oriented to person, oriented to place, oriented to time, oriented to situation, CN II-XII grossly intact Psychiatric exam: PRESENT: flat affect. ABSENT: agitated, anxious Focused psych exam: ABSENT: delusional, restlessness Skin exam: PRESENT: dry, normal color, warm. ABSENT: rash Results Laboratory Results: 11/02/19 06:00 11/02/19 06:00 11/01/19 11/01/19 11/01/19 18:07 18:07 20:10 WBC 12.9 H RBC 4.55 Hgb 14.5 Hct 43.9 MCV 97 MCH 31.9 MCHC 33.0 RDW 17.1 H Plt Count 286 Seg Neutrophils % 86.6 H Sodium 126.7 L Potassium 5.3 H Chloride 84 L Carbon Dioxide 29 Anion Gap 14 BUN 52 H Creatinine 5.92 H Est GFR ( Amer) 9 L Glucose 668 H* Lactic Acid Calcium 9.1 Magnesium Total Bilirubin 1.1 AST 27 Alkaline Phosphatase 128 H Total Protein 7.3 Albumin 3.8 Urine Color YELLOW Urine Appearance CLEAR Urine pH 8.0 Ur Specific [place] 1.014 Urine Protein >=500 H Urine Glucose (UA) >=500 H Urine Ketones TRACE H Urine Blood SMALL H Urine Nitrite NEGATIVE Ur Leukocyte Esterase NEGATIVE Urine WBC (Auto) 2 Urine RBC (Auto) 25 11/01/19 11/02/19 11/02/19 21:08 00:35 06:00 WBC 11.9 H RBC 3.82 Hgb 12.2 D Hct 36.2 MCV 95 MCH 32.0 MCHC 33.7 RDW 17.8 H Plt Count 229 Seg Neutrophils % Sodium Potassium Chloride Carbon Dioxide Anion Gap BUN Creatinine Est GFR ( Amer) Glucose Lactic Acid 2.6 H 2.4 H Calcium Magnesium Total Bilirubin AST Alkaline Phosphatase Total Protein Albumin Urine Color Urine Appearance Urine pH Ur Specific [place] Urine Protein Urine Glucose (UA) Urine Ketones Urine Blood Urine Nitrite Ur Leukocyte Esterase Urine WBC (Auto) Urine RBC (Auto) 11/02/19 06:00 WBC RBC Hgb Hct MCV MCH MCHC RDW Plt Count Seg Neutrophils % Sodium 130.1 L Potassium 4.2 D Chloride 88 L Carbon Dioxide 24 Anion Gap 18 BUN 68 H Creatinine 5.93 H Est GFR ( Amer) 9 L Glucose 232 H Lactic Acid Calcium 8.7 Magnesium 1.6 Total Bilirubin AST Alkaline Phosphatase Total Protein Albumin Urine Color Urine Appearance Urine pH Ur Specific [place] Urine Protein Urine Glucose (UA) Urine Ketones Urine Blood Urine Nitrite Ur Leukocyte Esterase Urine WBC (Auto) Urine RBC (Auto) 11/01/19 21:08 NT-Pro-B Natriuret Pep 46613 H Impressions: Chest X-Ray 11/01/19 17:07 IMPRESSION: No acute cardiopulmonary disease. New right central venous catheter. Head CT 11/01/19 17:36 IMPRESSION: No acute intracranial hemorrhage, mass, or evidence of acute territorial infarct. EVIDENCE OF ACUTE STROKE: NO. Assessment and Plan - Diagnosis (1) Fever Qualifiers: Fever type: unspecified Qualified Code(s): R50.9 - Fever, unspecified Is this a current diagnosis for this admission?: Yes Plan: 11/02/2019 T-max was 102.5 on admission. Currently afebrile. White blood cell count not significantly elevated. Chest x-ray shows no focal infiltrates. Cultures were obtained. Could be a viral process. The patient is being tested for Covid-19. (2) Hypertensive emergency Is this a current diagnosis for this admission?: Yes Plan: 11/02/2019 Systolic hypertension with systolic blood pressure 248 at one point. Currently she takes clonidine and amlodipine at home. Will resume home medications with parameters to hold for low blood pressure. (3) Cough Is this a current diagnosis for this admission?: Yes Plan: 11/02/2019 Could be related to viral illness. (4) Hyperglycemia due to type 2 diabetes mellitus Qualifiers: Diabetes mellitus group home insulin use: with group home use Qualified Code(s): E11.65 - Type 2 diabetes mellitus with hyperglycemia; Z79.4 - correction (current) use of insulin Is this a current diagnosis for this admission?: Yes Plan: 11/02/2019 The patient is on long and short acting insulin at home. We will use sliding scale at this time. Consider resuming long-term insulin based on her Accu- Cheks. She will be on a diabetic diet. (5) Hyponatremia Is this a current diagnosis for this admission?: Yes Plan: 11/02/2019 Currently at her baseline. Most likely due to chronic kidney disease. Review of history of serum sodium levels show her typical ranges 126-135 (6) CKD (chronic kidney disease) stage V requiring chronic dialysis Is this a current diagnosis for this admission?: Yes Plan: 11/02/2019 Dr. Mortensen is consulting. The patient will have hemodialysis on the fifth floor tomorrow. (7) Encounter for observation for suspected exposure to other biological agents ruled out Is this a current diagnosis for this admission?: Yes Plan: 11/02/2019 With cough and fever patient is being tested for Covid-19. - Plan Summary Summary: Patient is admitted to a telemetry bed on the medical floor where she will receive routine supportive and symptomatic cares. A nephrology consultation will be obtained with Dr. Mortensen. She will be treated with IV cefepime and azithromycin. Accu-Cheks to be performed every 4 hours with sliding scale insulin coverage for hyperglycemia and a hypoglycemic protocol in place. Hydralazine and metoprolol will be administered IV as needed to maintain a systolic blood pressure less than 160 and a diastolic blood pressure less than 100. Patient's fever will be treated with acetaminophen as required. Patient may also received external cooling to help reduce her fever. CBCs, metabolic profiles and magnesium levels to be followed on an as-needed basis. Neurochecks will be performed every 4 hours. Serial lactic acid levels will be obtained. Blood and urine cultures are pending. - Time Time Spent with patient: 15-24 minutes Medications reviewed and adjusted accordingly: Yes Anticipated discharge: Home
[2019-11-02] MEDS: DOCUSATE SODIUM 100 MG CAPSULE PO SCH ×2 (13:07→17:10)
[2019-11-02] MEDS: CEFEPIME HCL 2 GM in DEXTROSE 5%-WATER 50 ML IV SCH ×2 (13:21→22:42)
[2019-11-02] MEDS: AZITHROMYCIN 500 MG in DEXTROSE 5%-WATER 250 ML IV SCH (22:43)
[2019-11-03] MEDS: NITROGLYCERIN 2% OINTMENT 1 GM PACKET TP SCH ×4 (00:01→19:39)
[2019-11-03] MEDS: HYDRALAZINE HCL INJ/PF 20 MG/1 ML SDV IV PRN ×2 (00:11→16:02)
[2019-11-03] MEDS: INSULIN REG, HUMAN 100 UNIT/ML 3 ML VIAL (PYX) SUBCUT SCH ×6 (01:21→22:34)
[2019-11-03] MEDS ORDERED: NORMAL SALINE 1000 ML 1,000 ML IV PRN (05:00)
[2019-11-03 05:26] LABS: HEMATOCRIT 38.2 % (36.0-47.0); HEMOGLOBIN 13.1 g/dL (12.0-15.5); MEAN CORPUSCULAR HEMOGLOBIN 32.1 pg (27.0-33.4); MEAN CORPUSCULAR HGB CONC 34.3 g/dL (32.0-36.0); MEAN CORPUSCULAR VOLUME 94 fl (80-97); PLATELET COUNT 252 10^3/uL (150-450); RED BLOOD COUNT 4.07 10^6/uL (3.72-5.28); RED CELL DISTRIBUTION WIDTH 17.8 % (11.5-14.0); WHITE BLOOD COUNT 14.6 10^3/uL (4.0-10.5)
[2019-11-03] MEDS: PANTOPRAZOLE SODIUM 40 MG TABLET.DR PO SCH (05:42)
[2019-11-03 05:43] LABS: BLOOD UREA NITROGEN 83 mg/dL (7-20); CALCIUM 8.5 mg/dL (8.4-10.2); GLUCOSE 228 mg/dL (75-110)
[2019-11-03 05:49] LABS: CARBON DIOXIDE 20 mmol/L (22-30); CHLORIDE 86 mmol/L (98-107)
[2019-11-03] MEDS: HEPARIN SOD (PORCINE) 5,000 UNIT/ML 1 ML VIAL SUBCUT SCH ×3 (05:52→21:34)
[2019-11-03 05:57] LABS: ANION GAP 23 (5-19); POTASSIUM 5.4 mmol/L (3.6-5.0)
[2019-11-03 09:38] LABS: ALBUMIN 3.1 g/dL (3.5-5.0); ALKALINE PHOSPHATASE 67 U/L (38-126); ASPARTATE AMINO TRANSFERASE 14 U/L (14-36); BILIRUBIN,DIRECT 0.6 mg/dL (0.0-0.4); BILIRUBIN,TOTAL 0.9 mg/dL (0.2-1.3); BLOOD UREA NITROGEN 88 mg/dL (7-20); CALCIUM 8.7 mg/dL (8.4-10.2); CARBON DIOXIDE 22 mmol/L (22-30); CHLORIDE 87 mmol/L (98-107); GLUCOSE 147 mg/dL (75-110); PHOSPHORUS 8.1 mg/dL (2.5-4.5); POTASSIUM 5.1 mmol/L (3.6-5.0); TOTAL PROTEIN 6.3 g/dL (6.3-8.2)
[2019-11-03 09:44] LABS: ANION GAP 21 (5-19)
[2019-11-03] MEDS: DOCUSATE SODIUM 100 MG CAPSULE PO SCH ×2 (11:38→19:38)
[2019-11-03] MEDS: CEFEPIME HCL 2 GM in DEXTROSE 5%-WATER 50 ML IV SCH ×2 (11:39→21:26)
[2019-11-03] MEDS ORDERED: VANCOMYCIN HCL 0 MG in DEXTROSE 5%-WATER 250 ML IV NR (13:15)
[2019-11-03] MEDS: CLONIDINE HCL 0.1 MG TABLET PO SCH ×2 (13:28→19:38)
[2019-11-03] MEDS ORDERED: CLONIDINE HCL 0.1 MG TABLET PO SCH (14:00)
[2019-11-03] MEDS ORDERED: FERRIC CITRATE 630 MG PO SCH (14:00)
[2019-11-03] MEDS ORDERED: VANCOMYCIN HCL 1,250 MG in DEXTROSE 5%-WATER 250 ML IV ONE (18:00)
--- NOTE | 2019-11-03 19:02 | PDOC PROGRESS REPORT ---
Subjective Progress Note for:: 11/03/19 Subjective:: No adverse events overnight. She had some shaking spells that were described as seizures this morning during dialysis but apparently she has been having these shaking twitches since she came in. I went back and looked through some of the previous admissions and she has had these as part of her presentation when she gets really sick. Her blood pressures have been fine most of the time, but she did have a high blood pressure earlier today because they were unable to give her some of her medications this morning. She was able to complete dialysis and got about 500 mL's off. She has been afebrile. Reason For Visit: FEVER, HYPERTENSIVE URGENCY, HYPERGLYCEMIA AND Physical Exam Vital Signs: Temp Pulse Resp BP Pulse Ox 98.6 F 96 22 H 193/53 H 100 11/03/19 15:59 11/03/19 15:59 11/03/19 15:59 11/03/19 15:59 11/03/19 15:59 Intake & Output 11/02/19 11/03/19 11/04/19 06:59 06:59 06:59 Intake Total 800 610 50 Output Total 0 0 Balance 800 610 50 Weight 59.6 kg 60.2 kg General appearance: PRESENT: disheveled, mild distress Eye exam: PRESENT: EOMI, PERRLA. ABSENT: nystagmus, scleral icterus Neck exam: ABSENT: meningismus, tenderness Respiratory exam: PRESENT: clear to auscultation carlos, symmetrical, unlabored. ABSENT: chest wall tenderness, crackles, prolonged expiratory phas, retraction, rhonchi, tachypnea, wheezes Cardiovascular exam: PRESENT: RRR, +S1, +S2 Pulses: PRESENT: normal carotid pulses Vascular exam: PRESENT: normal capillary refill GI/Abdominal exam: PRESENT: normal bowel sounds, soft. ABSENT: distended, guarding, rebound, tenderness Extremities exam: ABSENT: clubbing, pedal edema Musculoskeletal exam: PRESENT: normal inspection. ABSENT: deformity Neurological exam: PRESENT: awake, oriented to person Psychiatric exam: PRESENT: agitated Skin exam: PRESENT: dry, warm Results Laboratory Results: 11/03/19 04:49 11/03/19 08:15 11/03/19 11/03/19 11/03/19 04:49 04:49 08:15 WBC 14.6 H RBC 4.07 Hgb 13.1 Hct 38.2 MCV 94 MCH 32.1 MCHC 34.3 RDW 17.8 H Plt Count 252 Sodium 129.0 L 129.6 L Potassium 5.4 H D 5.1 H Chloride 86 L 87 L Carbon Dioxide 20 L 22 Anion Gap 23 H 21 H BUN 83 H 88 H Creatinine 7.56 H 8.41 H Est GFR ( Amer) 7 L 6 L Glucose 228 H 147 H Calcium 8.5 8.7 Phosphorus 8.1 H Magnesium 1.9 Total Bilirubin 0.9 AST 14 Alkaline Phosphatase 67 Total Protein 6.3 Albumin 3.1 L 11/01/19 23:26 Blood Blood Culture (PCR) - Final Staphylococcus Species 11/01/19 20:10 Catheterized Urine Urine Culture - Final NO GROWTH 2 DAYS 11/01/19 21:08 NT-Pro-B Natriuret Pep 11918 H Impressions: Chest X-Ray 11/01/19 17:07 IMPRESSION: No acute cardiopulmonary disease. New right central venous catheter. Head CT 11/01/19 17:36 IMPRESSION: No acute intracranial hemorrhage, mass, or evidence of acute territorial infarct. EVIDENCE OF ACUTE STROKE: NO. Assessment and Plan - Diagnosis (1) Metabolic encephalopathy Is this a current diagnosis for this admission?: Yes Plan: It seems that in the past when she has gotten sick and come and she has had this shaking and encephalopathy in the past. Imaging of the brain has been negative. She does not have any meningeal signs. Her fever has improved. She is on broad-spectrum antibiotics, vancomycin was added today for gram-positive coverage. Cultures are pending. (2) Cough Is this a current diagnosis for this admission?: Yes Plan: She has been started empirically on broad-spectrum antibiotics in case this is some sort of a pneumonia. She apparently does not miss dialysis appointments and they only had to pull 500 mils off of her today, so it could be she is a little on the dry side and therefore would not have a lot of body water to put into pulmonary edema. Cultures are pending. She ruled out for coronavirus infection. (3) Encounter for observation for suspected exposure to other biological agents ruled out Is this a current diagnosis for this admission?: Yes Plan: Coronavirus testing was negative (4) Fever Qualifiers: Fever type: unspecified Qualified Code(s): R50.9 - Fever, unspecified Is this a current diagnosis for this admission?: Yes Plan: As noted above (5) End stage renal failure on dialysis Is this a current diagnosis for this admission?: Yes Plan: Nephrology consulted for hemodialysis - Plan Summary Summary: Patient is admitted to a telemetry bed on the medical floor where she will receive routine supportive and symptomatic cares. A nephrology consultation will be obtained with Dr. Mortensen. She will be treated with IV cefepime and azithromycin. Accu-Cheks to be performed every 4 hours with sliding scale insulin coverage for hyperglycemia and a hypoglycemic protocol in place. Hydralazine and metoprolol will be administered IV as needed to maintain a systolic blood pressure less than 160 and a diastolic blood pressure less than 100. Patient's fever will be treated with acetaminophen as required. Patient may also received external cooling to help reduce her fever. CBCs, metabolic profiles and magnesium levels to be followed on an as-needed basis. Neurochecks will be performed every 4 hours. Serial lactic acid levels will be obtained. Blood and urine cultures are pending. - Time Time Spent with patient: 25-34 minutes
[2019-11-03] MEDS: ATORVASTATIN CALCIUM 20 MG TABLET PO SCH (21:22)
[2019-11-03] MEDS: GABAPENTIN 100 MG CAPSULE PO SCH (21:22)
[2019-11-03] MEDS: AMLODIPINE BESYLATE 5 MG TABLET PO SCH (21:23)
[2019-11-03] MEDS ORDERED: AMLODIPINE BESYLATE 5 MG TABLET PO SCH (22:00)
[2019-11-03] MEDS: AZITHROMYCIN 500 MG in DEXTROSE 5%-WATER 250 ML IV SCH (22:34)
[2019-11-04] MEDS: NITROGLYCERIN 2% OINTMENT 1 GM PACKET TP SCH ×4 (00:23→19:33)
--- NOTE | 2019-11-04 02:06 | PDOC CONSULTATION ---
Consultation Consult Date: 11/03/19 Provider Consulted: DAVID MOSES Consult reason:: ESRD requiring dialysis History of Present Illness Admission Date/PCP: 11/01/19 22:33 IRENE SAMANIEGO History of Present Illness: SAMIA HEALY is a 59 year old female known to me with history of ESRD on maintenance hemodialysis, hypertension, and diabetes mellitus who presented to the emergency room Friday night due to cough and fever. Patient is currently unresponsive and no history can be obtained. History is obtained from the ER records and admitting history. Family reports a 2-day history of a nonproductive cough, fever and generalized malaise. There were also reports of transient right-sided weakness and right facial twitching during the morning of admission. Initial evaluation in the emergency room showed a fever of 102.5 F, tachycardia, severe hypertension of 248/70, elevated blood sugar of 668 and elevated white blood cell count. Her head CT showed no acute intracranial hemorrhage, mass, or evidence of acute territorial infarct. Her chest x-ray showed no acute cardiopulmonary disease however. Patient is being empirically treated for possible pneumonia and being tested for COVID-19. I saw the patient during dialysis this morning. She was unresponsive and when I entered the room her face is shaking as if she is having mild seizures for a couple of minutes and then it stopped. Her blood pressures actually within acceptable limits. She is tolerating dialysis with minimal ultrafiltration only. Past Medical History Cardiac Medical History: Reports: Hypertension-primary Pulmonary Medical History: Reports: Pneumonia Neurological Medical History: Reports: Other - TIAs Endocrine Medical History: Reports: Diabetes Mellitus Type 2 Renal/ Medical History: Reports: End Stage Renal Disease Hematology Medical History: Reports Anemia of Chronic Kidney Disease Past Surgical History Past Surgical History: Reports: Appendectomy, Section, Cholecystectomy, Dialysis Access Surgery AVF - Left upper arm placed with Vidant, Orthopedic Surgery - Bilateral foot surgery, Tubal Ligation, Vascular Surgery - fistula upper arm (left) Done at [facility] Social History Information Source: [facility] Records Lives with: Family Smoking Status: Unknown if Ever Smoked Electronic Cigarette use?: No Frequency of Alcohol Use: None Hx Recreational Drug Use: No Drugs: None Hx Prescription Drug Abuse: No - Advance Directive Resuscitation Status: Full Code Family History Family History: Unobtainable due to the patient's mental status. Parental Family History Reviewed: No Children Family History Reviewed: No Sibling(s) Family History Reviewed.: No Medication/Allergy Home Medications: Amlodipine Besylate [Norvasc 5 mg Tablet] 5 mg PO QHS 09/09/19 Atorvastatin Calcium [Lipitor 20 mg Tablet] 20 mg PO QHS 09/09/19 Clonidine HCl [Catapres 0.1 mg Tablet] 0.3 mg PO TID 09/09/19 Gabapentin [Neurontin 100 mg Capsule] 200 mg PO Q12 09/09/19 Insulin Degludec [Tresiba Flextouch U-100] 20 unit SQ QHS 09/09/19 Varenicline Tartrate [Chantix 1 mg Tablet] 1 mg PO BID 09/09/19 Ferric Citrate [Auryxia] 630 mg PO TID 11/02/19 Insulin Aspart [Novolog Flexpen] 9 units SUBCUT TID 11/02/19 Ondansetron HCl [Zofran 8 mg Tablet] 8 mg PO Q8HP PRN 11/02/19 Allergies/Adverse Reactions: Penicillins Allergy (Severe, Verified 11/01/19 17:04) rash ciprofloxacin [From Cipro] Allergy (Verified 11/01/19 17:04) shellfish derived Allergy (Verified 11/01/19 17:04) Swelling of tongue oxycodone [From Percocet] Adverse Reaction (Verified 11/01/19 17:04) Review of Systems ROS unobtainable: Due to mental status Physical Exam Vital Signs: Temp Pulse Resp BP Pulse Ox 97.7 F 92 16 129/55 H 96 11/03/19 04:28 11/03/19 07:00 11/03/19 04:28 11/03/19 04:28 11/03/19 04:28 Intake & Output 11/02/19 11/03/19 11/04/19 06:59 06:59 06:59 Intake Total 800 610 Output Total 0 0 Balance 800 610 Weight 59.6 kg 60.2 kg Vitals during dialysis: Blood pressure 156/71, heart rate of 89, temperature of 99.1, respiration of 16, blood flow rate of 400 mL/min and dialysate flow rate of 800 mL/min. Exam: General appearance: No acute distress, cooperative, fairly-developed, fairly-n ourished Head exam: PRESENT: atraumatic, normocephalic Eye exam: PRESENT: Eyes are closed Mouth exam: PRESENT: moist, neck supple, tongue midline Neck exam: PRESENT: full ROM. ABSENT: carotid bruit, JVD, lymphadenopathy, thyromegaly Respiratory exam: PRESENT: Diminished to auscultation bilaterally. ABSENT: rales, rhonchi, stridor, wheezes Cardiovascular exam: PRESENT: RRR, +S1, +S2. ABSENT: systolic murmur Pulses: PRESENT: normal radial pulses, normal dorsalis pedis pulses GI/Abdominal exam: PRESENT: normal bowel sounds, soft. ABSENT: guarding, mass, tenderness Rectal exam: Deferred Extremities exam: ABSENT: pedal edema Musculoskeletal: ABSENT: deformity Neurological exam: PRESENT: Unresponsive Psychiatric exam: PRESENT: Unresponsive and cannot be assessed. Skin exam: PRESENT: intact, dry, warm. ABSENT: rash Results Laboratory Results: 11/03/19 04:49 11/03/19 08:15 11/03/19 11/03/19 11/03/19 04:49 04:49 08:15 WBC 14.6 H RBC 4.07 Hgb 13.1 Hct 38.2 MCV 94 MCH 32.1 MCHC 34.3 RDW 17.8 H Plt Count 252 Sodium 129.0 L 129.6 L Potassium 5.4 H D 5.1 H Chloride 86 L 87 L Carbon Dioxide 20 L 22 Anion Gap 23 H 21 H BUN 83 H 88 H Creatinine 7.56 H 8.41 H Est GFR ( Amer) 7 L 6 L Glucose 228 H 147 H Calcium 8.5 8.7 Phosphorus 8.1 H Magnesium 1.9 Total Bilirubin 0.9 AST 14 Alkaline Phosphatase 67 Total Protein 6.3 Albumin 3.1 L 11/01/19 23:26 Blood Blood Culture (PCR) - Final Staphylococcus Species 11/01/19 20:10 Catheterized Urine Urine Culture - Final NO GROWTH 2 DAYS 11/01/19 21:08 NT-Pro-B Natriuret Pep [id number] H Impressions: Chest X-Ray 11/01/19 17:07 IMPRESSION: No acute cardiopulmonary disease. New right central venous catheter. Head CT 11/01/19 17:36 IMPRESSION: No acute intracranial hemorrhage, mass, or evidence of acute territorial infarct. EVIDENCE OF ACUTE STROKE: NO. Assessment & Plan - Diagnosis (1) Fever Qualifiers: Fever type: unspecified Qualified Code(s): R50.9 - Fever, unspecified Is this a current diagnosis for this admission?: Yes Plan: Etiology uncertain. Currently on IV azithromycin, and cefepime by hospitalist service. (2) ESRD (end stage renal disease) Is this a current diagnosis for this admission?: Yes Plan: We will do dialysis today for rate hours, using the patient's AV fistula, with 2 potassium bath, blood flow rate of 400 mL per minute, dialysate flow rate of 800 mL per minute, ultrafiltration 0 to 0.5 L as tolerated, no heparin and no Procrit. Patient is being monitored closely and continuously by our dialysis nurse. (3) Cough Is this a current diagnosis for this admission?: Yes Plan: Empirically being treated for pneumonia. (4) Hypertension Qualifiers: Is this a current diagnosis for this admission?: Yes Plan: Patient presented with hypertensive urgency. Patient's blood pressure currently is within acceptable normal limits. (5) Metabolic encephalopathy Is this a current diagnosis for this admission?: Yes Plan: CT scan is negative. Most likely secondary to her acute illness. (6) Hyponatremia Is this a current diagnosis for this admission?: Yes Plan: Currently stable. (7) Type 2 diabetes mellitus Qualifiers: Diabetes mellitus care home insulin use: with care home use Diabetes mellitus complication status: with kidney complications Diabetes mellitus complication detail: with chronic kidney disease Chronic kidney disease stage: on chronic dialysis Qualified Code(s): E11.22 - Type 2 diabetes mellitus with diabetic chronic kidney disease; N18.6 - End stage renal disease; Z79.4 - joint terminal attack controller (current) use of insulin; Z99.2 - Dependence on renal dialysis Is this a current diagnosis for this admission?: Yes Plan: Per hospitalist service. (8) Suspected COVID-19 virus infection Is this a current diagnosis for this admission?: Yes Plan: COVID testing still pending. - Notes Notes: Thank you very much for this consultation. - Time Time Spent: 50 to 70 Minutes
[2019-11-04] MEDS: INSULIN REG, HUMAN 100 UNIT/ML 3 ML VIAL (PYX) SUBCUT SCH ×6 (02:49→21:06)
[2019-11-04 05:00] LABS: HEMATOCRIT 36.9 % (36.0-47.0); HEMOGLOBIN 12.3 g/dL (12.0-15.5); MEAN CORPUSCULAR HEMOGLOBIN 31.9 pg (27.0-33.4); MEAN CORPUSCULAR HGB CONC 33.2 g/dL (32.0-36.0); MEAN CORPUSCULAR VOLUME 96 fl (80-97); PLATELET COUNT 226 10^3/uL (150-450); RED BLOOD COUNT 3.84 10^6/uL (3.72-5.28); RED CELL DISTRIBUTION WIDTH 17.8 % (11.5-14.0); WHITE BLOOD COUNT 13.9 10^3/uL (4.0-10.5)
[2019-11-04] MEDS: HYDRALAZINE HCL INJ/PF 20 MG/1 ML SDV IV PRN ×2 (05:17→19:33)
[2019-11-04] MEDS: HEPARIN SOD (PORCINE) 5,000 UNIT/ML 1 ML VIAL SUBCUT SCH ×3 (05:18→21:06)
[2019-11-04] MEDS: PANTOPRAZOLE SODIUM 40 MG TABLET.DR PO SCH (05:18)
[2019-11-04] MEDS: DOCUSATE SODIUM 100 MG CAPSULE PO SCH ×2 (09:29→18:57)
[2019-11-04] MEDS: CLONIDINE HCL 0.1 MG TABLET PO SCH ×3 (09:30→18:57)
[2019-11-04] MEDS: CEFEPIME HCL 2 GM in DEXTROSE 5%-WATER 50 ML IV SCH ×2 (10:28→21:05)
[2019-11-04] MEDS: GABAPENTIN 100 MG CAPSULE PO SCH ×2 (10:42→21:04)
[2019-11-04] MEDS: DEXTROSE 5%-1/2 NORMAL SALINE 1,000 ML IV PRN (12:01)
--- NOTE | 2019-11-04 12:25 | EKG REPORT ---
SEVERITY:- ABNORMAL ECG - SINUS RHYTHM PROBABLE LEFT ATRIAL ABNORMALITY PROBABLE LEFT VENTRICULAR HYPERTROPHY : Confirmed by: Harry Vogel MD 04-Nov-2019 12:24:36
--- NOTE | 2019-11-04 14:48 | PDOC PROGRESS REPORT ---
Subjective Progress Note for:: 11/04/19 Subjective:: No adverse events overnight. Blood pressures have been fairly well controlled but we have not been able to get her to take oral medications again. She does not seem as encephalopathic as she was yesterday and she is more expressive with her face but she still not talking to us. She displays no asymmetry. She is not as tremulous intermittently as she was. Reason For Visit: FEVER, HYPERTENSIVE URGENCY, HYPERGLYCEMIA AND Physical Exam Vital Signs: Temp Pulse Resp BP Pulse Ox 98.3 F 94 21 H 151/61 H 99 11/04/19 11:18 11/04/19 11:18 11/04/19 11:18 11/04/19 11:18 11/04/19 11:18 Intake & Output 11/03/19 11/04/19 11/05/19 06:59 06:59 06:59 Intake Total 610 600 Output Total 0 500 Balance 610 100 Weight 60.2 kg 62.8 kg General appearance: PRESENT: disheveled, no apparent distress, nonverbal, oral thrush Eye exam: PRESENT: EOMI, PERRLA. ABSENT: nystagmus, scleral icterus Neck exam: ABSENT: meningismus, tenderness Respiratory exam: PRESENT: clear to auscultation carlos, symmetrical, unlabored. ABSENT: chest wall tenderness, crackles, prolonged expiratory phas, retraction, rhonchi, tachypnea, wheezes Cardiovascular exam: PRESENT: RRR, +S1, +S2 Pulses: PRESENT: normal carotid pulses Vascular exam: PRESENT: normal capillary refill GI/Abdominal exam: PRESENT: normal bowel sounds, soft. ABSENT: distended, guarding, rebound, tenderness Extremities exam: ABSENT: clubbing, pedal edema Musculoskeletal exam: PRESENT: normal inspection. ABSENT: deformity Neurological exam: PRESENT: awake, oriented to person Skin exam: PRESENT: dry, warm Results Laboratory Results: 11/04/19 04:06 11/03/19 08:15 11/04/19 04:06 WBC 13.9 H RBC 3.84 Hgb 12.3 Hct 36.9 MCV 96 MCH 31.9 MCHC 33.2 RDW 17.8 H Plt Count 226 11/01/19 23:26 Blood Blood Culture (PCR) - Final Staphylococcus Species 11/01/19 23:26 Blood Blood Culture - Final Staphylococcus Auricularis 04/13/20 21:08 NT-Pro-B Natriuret Pep [id number] H Impressions: Chest X-Ray 11/01/19 17:07 IMPRESSION: No acute cardiopulmonary disease. New right central venous catheter. Head CT 11/01/19 17:36 IMPRESSION: No acute intracranial hemorrhage, mass, or evidence of acute territorial infarct. EVIDENCE OF ACUTE STROKE: NO. Assessment and Plan - Diagnosis (1) Metabolic encephalopathy Is this a current diagnosis for this admission?: Yes Plan: She shows some improvement today. As previously noted, in previous presentations when she is acutely ill she presents with this encephalopathic picture that involves some intermittent tremulousness. I believe that that is what we are seeing here. She did have a single blood culture turned positive but this was for a coagulase-negative Staphylococcus and is likely a contaminant. I do believe that she has some sort of infection, likely a bacterial respiratory infection, that accounts for her current presentation. We will continue to monitor her progress and assess for other potential sources. (2) Cough Is this a current diagnosis for this admission?: Yes Plan: She has been started empirically on broad-spectrum antibiotics in case this is some sort of a pneumonia. She apparently does not miss dialysis appointments and they only had to pull 500 mils off of her Friday, so it could be she is a little on the dry side and therefore would not have a lot of body water to put into pulmonary edema. Cultures are as noted. She ruled out for coronavirus infection. (3) Encounter for observation for suspected exposure to other biological agents ruled out Is this a current diagnosis for this admission?: Yes Plan: Coronavirus testing was negative (4) Fever Qualifiers: Fever type: unspecified Qualified Code(s): R50.9 - Fever, unspecified Is this a current diagnosis for this admission?: Yes Plan: As noted above, now resolved (5) End stage renal failure on dialysis Is this a current diagnosis for this admission?: Yes Plan: Nephrology consulted for hemodialysis (6) Oral thrush Is this a current diagnosis for this admission?: Yes Plan: Checked her EKG and her QTc was 460. We will start fluconazole. - Plan Summary Summary: Patient is admitted to a telemetry bed on the medical floor where she will receive routine supportive and symptomatic cares. A nephrology consultation will be obtained with Dr. Mortensen. She will be treated with IV cefepime and azithromycin. Accu-Cheks to be performed every 4 hours with sliding scale in sulin coverage for hyperglycemia and a hypoglycemic protocol in place. Hydralazine and metoprolol will be administered IV as needed to maintain a systolic blood pressure less than 160 and a diastolic blood pressure less than 100. Patient's fever will be treated with acetaminophen as required. Patient may also received external cooling to help reduce her fever. CBCs, metabolic profiles and magnesium levels to be followed on an as-needed basis. Neurochecks will be performed every 4 hours. Serial lactic acid levels will be obtained. Blood and urine cultures are pending. - Time Time Spent with patient: 15-24 minutes
[2019-11-04 15:51] LABS: ANION GAP 14 (5-19); BLOOD UREA NITROGEN 41 mg/dL (7-20); CARBON DIOXIDE 25 mmol/L (22-30); CHLORIDE 94 mmol/L (98-107); GLUCOSE 206 mg/dL (75-110)
[2019-11-04] MEDS: AMLODIPINE BESYLATE 5 MG TABLET PO SCH (21:04)
[2019-11-04] MEDS: ATORVASTATIN CALCIUM 20 MG TABLET PO SCH (21:04)
[2019-11-04] MEDS: AZITHROMYCIN 500 MG in DEXTROSE 5%-WATER 250 ML IV SCH (21:05)
[2019-11-05] MEDS: NITROGLYCERIN 2% OINTMENT 1 GM PACKET TP SCH ×5 (00:48→23:08)
[2019-11-05] MEDS: DEXTROSE 5%-1/2 NORMAL SALINE 1,000 ML IV PRN (00:48)
[2019-11-05] MEDS: INSULIN REG, HUMAN 100 UNIT/ML 3 ML VIAL (PYX) SUBCUT SCH ×6 (01:26→22:03)
[2019-11-05] MEDS: LORAZEPAM INJ 2 MG/1 ML VIAL IV PRN ×2 (02:18→11:00)
[2019-11-05] MEDS: PANTOPRAZOLE SODIUM 40 MG TABLET.DR PO SCH (05:17)
[2019-11-05] MEDS: HEPARIN SOD (PORCINE) 5,000 UNIT/ML 1 ML VIAL SUBCUT SCH ×3 (05:24→22:03)
[2019-11-05 06:10] LABS: ABSOLUTE BASOPHILS # (AUTO) 0.1 10^3/uL (0.0-0.2); ABSOLUTE EOSINOPHILS # (AUTO) 0.1 10^3/uL (0.0-0.6); ABSOLUTE LYMPHOCYTES (AUTO) 1.1 10^3/uL (0.5-4.7); ABSOLUTE MONOCYTES (AUTO) 1.5 10^3/uL (0.1-1.4); ABSOLUTE NEUT (AUTO) 10.1 10^3/uL (1.7-8.2); BASOPHILS % (AUTO) 0.6 % (0-2); EOSINOPHILS % (AUTO) 1.1 % (0-6); HEMATOCRIT 34.3 % (36.0-47.0); HEMOGLOBIN 11.2 g/dL (12.0-15.5); LYMPHOCYTES % (AUTO) 8.6 % (13-45); MEAN CORPUSCULAR HEMOGLOBIN 31.6 pg (27.0-33.4); MEAN CORPUSCULAR HGB CONC 32.8 g/dL (32.0-36.0); MEAN CORPUSCULAR VOLUME 96 fl (80-97); MONOCYTES % (AUTO) 11.5 % (3-13); PLATELET COUNT 210 10^3/uL (150-450); RED BLOOD COUNT 3.56 10^6/uL (3.72-5.28); RED CELL DISTRIBUTION WIDTH 17.7 % (11.5-14.0); SEGMENTED NEUTROPHILS % (AUTO) 78.2 % (42-78); TOTAL CELLS COUNTED % (AUTO) 100 %; WHITE BLOOD COUNT 12.9 10^3/uL (4.0-10.5)
[2019-11-05 06:21] LABS: ANION GAP 12 (5-19); BLOOD UREA NITROGEN 48 mg/dL (7-20); CALCIUM 8.5 mg/dL (8.4-10.2); CARBON DIOXIDE 24 mmol/L (22-30); CHLORIDE 94 mmol/L (98-107); GLUCOSE 216 mg/dL (75-110); POTASSIUM 4.3 mmol/L (3.6-5.0)
[2019-11-05] MEDS: CLONIDINE HCL 0.1 MG TABLET PO SCH (11:21)
[2019-11-05] MEDS: DOCUSATE SODIUM 100 MG CAPSULE PO SCH ×2 (11:21→18:25)
[2019-11-05] MEDS: GABAPENTIN 100 MG CAPSULE PO SCH ×2 (11:22→22:05)
[2019-11-05] MEDS ORDERED: CLONIDINE 0.3 MG/24 HR PATCH.TDWK TD SCH (13:00)
--- NOTE | 2019-11-05 13:03 | RADIOLOGY REPORT (SQ) ---
EXAM DESCRIPTION: CT HEAD WITHOUT IMAGES COMPLETED DATE/TIME: 11/05/2019 12:40 pm REASON FOR STUDY: encephalopathy COMPARISON: CT of the head without contrast from 11/01/2019. TECHNIQUE: Axial images acquired through the brain without intravenous contrast. Images reviewed wi th bone, brain and subdural windows. Additional sagittal and coronal reconstructions were generated. Images stored on PACS. All CT scanners at this facility use dose modulation, iterative reconstruction, and/or weight based d osing when appropriate to reduce radiation dose to as low as reasonably achievable (ALARA). [facility]: Dose Right [facility]: CareDose [facility]: Dose Right [facility]: Teradose 4D [facility]: Pro[employer] Systems RADIATION DOSE: CT Rad equipment meets quality standard of care and radiation dose reduction techniq ues were employed. CTDIvol: 48.7 mGy. DLP: 930 mGy-cm. LIMITATIONS: None. FINDINGS: There is diffuse age-appropriate cerebral and cerebellar volume loss. The caliber of the ventricles is concordant with the degree of sulcation. The confluent areas of hypoattenuation within the supratentorial periventricular and subcortical whit e matter are unchanged. There is no acute intracranial hemorrhage, vascular territorial infarct, ext ra-axial fluid collection, mass effect or midline shift. The gallegos-white matter differentiation is pr eserved. There is no effacement of cerebral sulci or basal subarachnoid cisterns. The orbits and globes are i ntact. The paranasal sinuses are clear. There is no fracture of the calvarium. IMPRESSION: No acute intracranial abnormality. EVIDENCE OF ACUTE STROKE: NO. COMMENT: Quality ID # [id number]: Final reports with documentation of one or more dose reduction techniques (e.g., Automated exposure control, adjustment of the mA and/or kV according to patient size, use of iterative reconstruction technique) TECHNICAL DOCUMENTATION: JOB ID: [id number] 2010 [employer]- All Rights Reserved Reading location - IP/workstation name: [email or web address]
--- NOTE | 2019-11-05 13:20 | PDOC PROGRESS REPORT ---
Subjective Progress Note for:: 11/05/19 Reason For Visit: Patient was seen and reviewed today. She is currently undergoing dialysis. She seems to be having intermittent but continues seizures and remains postictal and therefore not responding to questions. Discussions were done with her treating dialysis nurse as well as the floor nurse. She had received 1 mg Ativan prior to her coming to dialysis. Labs and medications were reviewed. Imaging studies were reviewed. Physical Exam Vital Signs: Temp Pulse Resp BP Pulse Ox 98.3 F 91 20 157/40 H 100 11/05/19 11:19 11/05/19 11:19 11/05/19 11:19 11/05/19 11:19 11/05/19 11:19 Intake & Output 11/04/19 11/05/19 11/06/19 06:59 06:59 06:59 Intake Total 600 1309 Output Total 500 0 Balance 100 1309 Weight 62.8 kg 60.4 kg General appearance: PRESENT: disheveled Exam: She seems to be having intermittent seizures every 30 minutes or so and then remains postictal. The seizures continues for about 1 to 2 minutes. Eye exam: PRESENT: EOMI, PERRLA. ABSENT: scleral icterus Neck exam: ABSENT: meningismus, tenderness, tracheal deviation Respiratory exam: PRESENT: clear to auscultation carlos, decreased breath sounds. ABSENT: crackles Cardiovascular exam: PRESENT: +S1, +S2 GI/Abdominal exam: PRESENT: normal bowel sounds, soft. ABSENT: organomegaly, tenderness Neurological exam: PRESENT: altered Results Laboratory Results: 11/05/19 05:11 11/05/19 05:11 11/04/19 11/05/19 11/05/19 15:09 05:11 05:11 WBC 12.9 H RBC 3.56 L Hgb 11.2 L Hct 34.3 L MCV 96 MCH 31.6 MCHC 32.8 RDW 17.7 H Plt Count 210 Seg Neutrophils % 78.2 H Sodium 133.0 L 130.1 L Potassium 4.0 4.3 Chloride 94 L 94 L Carbon Dioxide 25 24 Anion Gap 14 12 BUN 41 H 48 H Creatinine 5.27 H 5.71 H Est GFR ( Amer) 10 L 9 L Glucose 206 H 216 H Calcium 9.0 8.5 11/01/19 21:08 NT-Pro-B Natriuret Pep [id number] H Impressions: Chest X-Ray 11/01/19 17:07 IMPRESSION: No acute cardiopulmonary disease. New right central venous catheter. Head CT 11/05/19 00:00 IMPRESSION: No acute intracranial abnormality. EVIDENCE OF ACUTE STROKE: NO. Assessment & Plan - Diagnosis (1) Seizure disorder Plan: She has been witnessed to have intermittent seizures every 20 to 30 minutes or so while undergoing dialysis. Blood sugars were checked and it was 94. She received a mg of Ativan prior to dialysis. Her current antiseizure medications is currently gabapentin only. She might need more antiseizure medications while evaluations are ongoing for the etiology of her seizures.She remains postictal.Case discussed with Dr. Lerma/hospitalist (2) Mental status alteration Plan: Patient possibly has continues/intermittent seizures and possibly remaining postictal. Evaluations and treatments being carried out by hospitalist. (3) ESRD (end stage renal disease) Is this a current diagnosis for this admission?: Yes Plan: Patient currently undergoing dialysis. Dialysis being supervised. Dialysis orders were reviewed with the treating dialysis nurse. We will remove minimal amount of fluid.Please adjust medications to GFR of 15 cc/min. I am cutting back on the dose of azithromycin. I would also recommend cutting back on the fluconazole to 100 mg postdialysis given the propensity of medications like fluconazole and erythromycin to prolong QTC. (4) Hyperglycemia due to type 2 diabetes mellitus Qualifiers: Diabetes mellitus mcfp insulin use: with terminal computer operator use Qualified Code(s): E11.65 - Type 2 diabetes mellitus with hyperglycemia; Z79.4 - termite exterminator helper (current) use of insulin Is this a current diagnosis for this admission?: Yes Plan: Being managed by hospitalist. (5) Hypertension Qualifiers: Is this a current diagnosis for this admission?: Yes Plan: Relatively controlled. (6) Diabetes mellitus type 2 in nonobese Is this a current diagnosis for this admission?: Yes
--- NOTE | 2019-11-05 16:38 | PDOC PROGRESS REPORT ---
Subjective Progress Note for:: 11/05/19 Subjective:: No adverse events overnight. No fevers. She still has some intermittent shaking spells, she did it again this morning during dialysis. She is able to grimace and make eye contact during these episodes. She was able to tolerate a full session of dialysis today. Oral intake has been essentially nonexistent. Reason For Visit: FEVER, HYPERTENSIVE URGENCY, HYPERGLYCEMIA AND Physical Exam Vital Signs: Temp Pulse Resp BP Pulse Ox 98.3 F 94 18 178/47 H 97 11/05/19 15:10 11/05/19 15:10 11/05/19 15:10 11/05/19 15:10 11/05/19 15:10 Intake & Output 11/04/19 11/05/19 11/06/19 06:59 06:59 06:59 Intake Total 600 1309 0 Output Total 500 0 300 Balance 100 1309 -300 Weight 62.8 kg 60.4 kg General appearance: PRESENT: disheveled, no apparent distress, nonverbal, oral thrush Eye exam: PRESENT: EOMI, PERRLA. ABSENT: nystagmus, scleral icterus Neck exam: ABSENT: meningismus, tenderness Respiratory exam: PRESENT: clear to auscultation carlos, symmetrical, unlabored. ABSENT: chest wall tenderness, crackles, prolonged expiratory phas, retraction, rhonchi, tachypnea, wheezes Cardiovascular exam: PRESENT: RRR, +S1, +S2 Pulses: PRESENT: normal carotid pulses Vascular exam: PRESENT: normal capillary refill GI/Abdominal exam: PRESENT: normal bowel sounds, soft. ABSENT: distended, guarding, rebound, tenderness Extremities exam: ABSENT: clubbing, pedal edema Musculoskeletal exam: PRESENT: normal inspection. ABSENT: deformity Neurological exam: PRESENT: awake, oriented to person Skin exam: PRESENT: dry, warm Results Laboratory Results: 11/05/19 05:11 11/05/19 05:11 11/05/19 11/05/19 05:11 05:11 WBC 12.9 H RBC 3.56 L Hgb 11.2 L Hct 34.3 L MCV 96 MCH 31.6 MCHC 32.8 RDW 17.7 H Plt Count 210 Seg Neutrophils % 78.2 H Sodium 130.1 L Potassium 4.3 Chloride 94 L Carbon Dioxide 24 Anion Gap 12 BUN 48 H Creatinine 5.71 H Est GFR ( Amer) 9 L Glucose 216 H Calcium 8.5 11/01/19 21:08 NT-Pro-B Natriuret Pep [id number] H Impressions: Chest X-Ray 11/01/19 17:07 IMPRESSION: No acute cardiopulmonary disease. New right central venous catheter. Head CT 11/05/19 00:00 IMPRESSION: No acute intracranial abnormality. EVIDENCE OF ACUTE STROKE: NO. Assessment and Plan - Diagnosis (1) Metabolic encephalopathy Is this a current diagnosis for this admission?: Yes Plan: Repeat CT of the head is negative. She does seem better than she did a couple of days ago. However, she still not talking. Refer to previous progress note for discussion of prior episodes. Repeat head CT was unremarkable. Will check an ammonia level. If this continues, the next step would be to get a lumbar puncture. (2) Cough Is this a current diagnosis for this admission?: Yes Plan: She has been started empirically on broad-spectrum antibiotics in case this is some sort of a pneumonia. She apparently does not miss dialysis appointments and they only had to pull 500 mils off of her Friday, so it could be she is a little on the dry side and therefore would not have a lot of body water to put into pulmonary edema. Cultures are as noted. She ruled out for coronavirus infection. (3) Encounter for observation for suspected exposure to other biological agents ruled out Is this a current diagnosis for this admission?: Yes Plan: Coronavirus testing was negative (4) Fever Qualifiers: Fever type: unspecified Qualified Code(s): R50.9 - Fever, unspecified Is this a current diagnosis for this admission?: Yes Plan: As noted above, now resolved (5) End stage renal failure on dialysis Is this a current diagnosis for this admission?: Yes Plan: Nephrology consulted for hemodialysis (6) Oral thrush Is this a current diagnosis for this admission?: Yes Plan: Checked her EKG and her QTc was 460. We have started fluconazole. - Plan Summary Summary: Patient is admitted to a telemetry bed on the medical floor where she will receive routine supportive and symptomatic cares. A nephrology consultation will be obtained with Dr. Mortensen. She will be treated with IV cefepime and azithromycin. Accu-Cheks to be performed every 4 hours with sliding scale insulin coverage for hyperglycemia and a hypoglycemic protocol in place. Hydralazine and metoprolol will be administered IV as needed to maintain a systolic blood pressure less than 160 and a diastolic blood pressure less than 100. Patient's fever will be treated with acetaminophen as required. Patient may also received external cooling to help reduce her fever. CBCs, metabolic profiles and magnesium levels to be followed on an as-needed basis. Neurochecks will be performed every 4 hours. Serial lactic acid levels will be obtained. Blood and urine cultures are pending. - Time Time Spent with patient: 25-34 minutes
[2019-11-05] MEDS: FLUCONAZOLE 200 MG/NS RTU 200 MG/100 ML RTUPB IV SCH ×2 (18:11→18:27)
[2019-11-05] MEDS: VANCOMYCIN HCL 750 MG in DEXTROSE 5%-WATER 250 ML IV SCH (20:29)
[2019-11-05] MEDS: HYDRALAZINE HCL INJ/PF 20 MG/1 ML SDV IV PRN (20:41)
[2019-11-05] MEDS ORDERED: AZITHROMYCIN 250 MG in DEXTROSE 5%-WATER 250 ML IV SCH (22:00)
[2019-11-05] MEDS: CEFEPIME 1 GM/D5W RTU 1 GM/50 ML RTUPB IV SCH (22:03)
[2019-11-05] MEDS: AZITHROMYCIN 250 MG in DEXTROSE 5%-WATER 250 ML IV SCH (22:03)
[2019-11-05] MEDS: ATORVASTATIN CALCIUM 20 MG TABLET PO SCH (22:05)
[2019-11-05] MEDS: AMLODIPINE BESYLATE 5 MG TABLET PO SCH (22:05)
[2019-11-06] MEDS: INSULIN REG, HUMAN 100 UNIT/ML 3 ML VIAL (PYX) SUBCUT SCH ×6 (01:16→21:58)
[2019-11-06] MEDS: PANTOPRAZOLE SODIUM 40 MG TABLET.DR PO SCH (05:18)
[2019-11-06] MEDS: DEXTROSE 5%-1/2 NORMAL SALINE 1,000 ML IV PRN ×2 (05:24→19:38)
[2019-11-06] MEDS: HEPARIN SOD (PORCINE) 5,000 UNIT/ML 1 ML VIAL SUBCUT SCH ×3 (05:24→21:57)
[2019-11-06] MEDS: NITROGLYCERIN 2% OINTMENT 1 GM PACKET TP SCH ×4 (05:24→23:29)
[2019-11-06 05:27] LABS: ANION GAP 9 (5-19); CALCIUM 8.5 mg/dL (8.4-10.2); CARBON DIOXIDE 28 mmol/L (22-30); CHLORIDE 95 mmol/L (98-107); GLUCOSE 243 mg/dL (75-110); POTASSIUM 3.5 mmol/L (3.6-5.0)
[2019-11-06 05:50] LABS: BLOOD UREA NITROGEN 21 mg/dL (7-20)
[2019-11-06] MEDS: DOCUSATE SODIUM 100 MG CAPSULE PO SCH ×2 (10:35→17:20)
[2019-11-06] MEDS: GABAPENTIN 100 MG CAPSULE PO SCH ×2 (10:35→21:57)
[2019-11-06 14:09] LABS: HEMOGLOBIN 11.4 g/dL (12.0-15.5); MEAN CORPUSCULAR HEMOGLOBIN 31.6 pg (27.0-33.4); MEAN CORPUSCULAR HGB CONC 32.5 g/dL (32.0-36.0); MEAN CORPUSCULAR VOLUME 97 fl (80-97); PLATELET COUNT 211 10^3/uL (150-450); RED CELL DISTRIBUTION WIDTH 17.5 % (11.5-14.0); WHITE BLOOD COUNT 11.3 10^3/uL (4.0-10.5)
--- NOTE | 2019-11-06 15:00 | PDOC PROGRESS REPORT ---
Subjective Progress Note for:: 11/06/19 Subjective:: No adverse events overnight. Last night she ate a little bit of pudding and she actually started to respond to questions little bit. Apparently she was just echoing what was being said to her last night, but this morning she is actually responding and answering some simple questions as well as asking questions of her own. Reason For Visit: FEVER, HYPERTENSIVE URGENCY, HYPERGLYCEMIA AND Physical Exam Vital Signs: Temp Pulse Resp BP Pulse Ox 98.4 F 130 H 16 164/80 H 100 11/06/19 11:51 11/06/19 11:51 11/06/19 11:51 11/06/19 11:51 11/06/19 11:51 Intake & Output 11/05/19 11/06/19 11/07/19 06:59 06:59 06:59 Intake Total 1309 1650 0 Output Total 0 300 0 Balance 1309 1350 0 Weight 60.4 kg 69.3 kg General appearance: PRESENT: disheveled, no apparent distress, scant white film on tongue Eye exam: PRESENT: EOMI, PERRLA. ABSENT: nystagmus, scleral icterus Neck exam: ABSENT: meningismus, tenderness Respiratory exam: PRESENT: clear to auscultation carlos, symmetrical, unlabored. ABSENT: chest wall tenderness, crackles, prolonged expiratory phas, retraction, rhonchi, tachypnea, wheezes Cardiovascular exam: PRESENT: RRR, +S1, +S2 Pulses: PRESENT: normal carotid pulses Vascular exam: PRESENT: normal capillary refill GI/Abdominal exam: PRESENT: normal bowel sounds, soft. ABSENT: distended, guarding, rebound, tenderness Extremities exam: ABSENT: clubbing, pedal edema Musculoskeletal exam: PRESENT: normal inspection. ABSENT: deformity Neurological exam: PRESENT: awake, oriented to person, oriented to situation Skin exam: PRESENT: dry, warm Results Laboratory Results: 11/06/19 04:18 11/06/19 04:18 11/05/19 11/06/19 11/06/19 18:08 04:18 04:18 WBC 11.3 H RBC 3.60 L Hgb 11.4 L Hct 35.0 L MCV 97 MCH 31.6 MCHC 32.5 RDW 17.5 H Plt Count 211 Sodium 132.2 L Potassium 3.5 L Chloride 95 L Carbon Dioxide 28 Anion Gap 9 BUN 21 H D Creatinine 3.45 H Est GFR ( Amer) 16 L Glucose 243 H Calcium 8.5 Ammonia < 8.7 L 11/01/19 21:08 NT-Pro-B Natriuret Pep [id number] H Impressions: Chest X-Ray 11/01/19 17:07 IMPRESSION: No acute cardiopulmonary disease. New right central venous catheter. Head CT 11/05/19 00:00 IMPRESSION: No acute intracranial abnormality. EVIDENCE OF ACUTE STROKE: NO. Assessment and Plan - Diagnosis (1) Metabolic encephalopathy Is this a current diagnosis for this admission?: Yes Plan: This is slowly improving. She has had a improvement in her mental status today. Suspected to be due to occult respiratory infection. She has been on antibiotics and is making an improvement. She is afebrile now. White blood cell count is normal. We will continue antibiotics and monitor her improvement. (2) Cough Is this a current diagnosis for this admission?: Yes Plan: She has been started empirically on broad-spectrum antibiotics in case this is some sort of a pneumonia. She apparently does not miss dialysis appointments and they only had to pull 500 mils off of her Friday, so it could be she is a little on the dry side and therefore would not have a lot of body water to put into pulmonary edema. Cultures are as noted. She ruled out for coronavirus infection. (3) Encounter for observation for suspected exposure to other biological agents ruled out Is this a current diagnosis for this admission?: Yes Plan: Coronavirus testing was negative (4) Fever Qualifiers: Fever type: unspecified Qualified Code(s): R50.9 - Fever, unspecified Is this a current diagnosis for this admission?: Yes Plan: As noted above, now resolved (5) End stage renal failure on dialysis Is this a current diagnosis for this admission?: Yes Plan: Nephrology consulted for hemodialysis (6) Oral thrush Is this a current diagnosis for this admission?: Yes Plan: Checked her EKG and her QTc was 460. We have started fluconazole. - Plan Summary Summary: Patient is admitted to a telemetry bed on the medical floor where she will receive routine supportive and symptomatic cares. A nephrology consultation will be obtained with Dr. Mortensen. She will be treated with IV cefepime and azithromycin. Accu-Cheks to be performed every 4 hours with sliding scale insulin coverage for hyperglycemia and a hypoglycemic protocol in place. Hydralazine and metoprolol will be administered IV as needed to maintain a systolic blood pressure less than 160 and a diastolic blood pressure less than 100. Patient's fever will be treated with acetaminophen as required. Patient may also received external cooling to help reduce her fever. CBCs, metabolic profiles and magnesium levels to be followed on an as-needed basis. Neurochecks will be performed every 4 hours. Serial lactic acid levels will be obtained. Blood and urine cultures are pending. - Time Time Spent with patient: 15-24 minutes
[2019-11-06] MEDS: AZITHROMYCIN 250 MG in DEXTROSE 5%-WATER 250 ML IV SCH (21:57)
[2019-11-06] MEDS: CEFEPIME 1 GM/D5W RTU 1 GM/50 ML RTUPB IV SCH (21:57)
[2019-11-06] MEDS: ATORVASTATIN CALCIUM 20 MG TABLET PO SCH (21:57)
[2019-11-06] MEDS: AMLODIPINE BESYLATE 5 MG TABLET PO SCH (21:57)
[2019-11-06] MEDS: HYDRALAZINE HCL INJ/PF 20 MG/1 ML SDV IV PRN (23:29)
[2019-11-06] MEDS: PROMETHAZINE HCL INJ 25 MG/1 ML VIAL IV PRN (23:53)
[2019-11-07] MEDS: INSULIN REG, HUMAN 100 UNIT/ML 3 ML VIAL (PYX) SUBCUT SCH ×4 (01:45→21:19)
[2019-11-07 05:27] LABS: HEMOGLOBIN 10.3 g/dL (12.0-15.5); MEAN CORPUSCULAR HEMOGLOBIN 31.9 pg (27.0-33.4); MEAN CORPUSCULAR HGB CONC 33.3 g/dL (32.0-36.0); MEAN CORPUSCULAR VOLUME 96 fl (80-97); PLATELET COUNT 237 10^3/uL (150-450); RED BLOOD COUNT 3.23 10^6/uL (3.72-5.28); RED CELL DISTRIBUTION WIDTH 16.7 % (11.5-14.0)
[2019-11-07 05:46] LABS: ANION GAP 11 (5-19); BLOOD UREA NITROGEN 27 mg/dL (7-20); CALCIUM 8.2 mg/dL (8.4-10.2); CARBON DIOXIDE 24 mmol/L (22-30); CHLORIDE 94 mmol/L (98-107); GLUCOSE 141 mg/dL (75-110); POTASSIUM 3.5 mmol/L (3.6-5.0)
[2019-11-07] MEDS: PANTOPRAZOLE SODIUM 40 MG TABLET.DR PO SCH (05:52)
[2019-11-07] MEDS: HEPARIN SOD (PORCINE) 5,000 UNIT/ML 1 ML VIAL SUBCUT SCH ×3 (05:56→21:17)
[2019-11-07] MEDS: NITROGLYCERIN 2% OINTMENT 1 GM PACKET TP SCH ×4 (05:56→23:46)
[2019-11-07] MEDS: DOCUSATE SODIUM 100 MG CAPSULE PO SCH ×2 (11:40→17:51)
[2019-11-07] MEDS: GABAPENTIN 100 MG CAPSULE PO SCH ×2 (11:40→21:16)
[2019-11-07] MEDS: LORAZEPAM INJ 2 MG/1 ML VIAL IV PRN ×2 (13:16→22:14)
--- NOTE | 2019-11-07 13:39 | PDOC PROGRESS REPORT ---
Subjective Progress Note for:: 11/07/19 Subjective:: Events overnight. No new complaints. Vital signs been stable. She remains afebrile. She has been able to eat a little bit. She has had a cough but says it has been nonproductive. Reason For Visit: FEVER, HYPERTENSIVE URGENCY, HYPERGLYCEMIA AND Physical Exam Vital Signs: Temp Pulse Resp BP Pulse Ox 98.1 F 91 16 141/51 H 99 11/07/19 12:00 11/07/19 12:00 11/07/19 12:00 11/07/19 12:00 11/07/19 12:00 Intake & Output 11/06/19 11/07/19 11/08/19 06:59 06:59 06:59 Intake Total 1650 1300 1120 Output Total 300 0 Balance 1350 1300 1120 Weight 69.3 kg 73.9 kg General appearance: PRESENT: disheveled, no apparent distress, scant white film on tongue Eye exam: PRESENT: EOMI, PERRLA. ABSENT: nystagmus, scleral icterus Neck exam: ABSENT: meningismus, tenderness Respiratory exam: PRESENT: clear to auscultation carlos, symmetrical, unlabored. ABSENT: chest wall tenderness, crackles, prolonged expiratory phas, retraction, rhonchi, tachypnea, wheezes Cardiovascular exam: PRESENT: RRR, +S1, +S2 Pulses: PRESENT: normal carotid pulses Vascular exam: PRESENT: normal capillary refill GI/Abdominal exam: PRESENT: normal bowel sounds, soft. ABSENT: distended, guarding, rebound, tenderness Extremities exam: ABSENT: clubbing, pedal edema Musculoskeletal exam: PRESENT: normal inspection. ABSENT: deformity Neurological exam: PRESENT: awake, oriented to person, oriented to situation Skin exam: PRESENT: dry, warm Results Laboratory Results: 11/07/19 04:57 11/07/19 04:57 11/06/19 11/07/19 11/07/19 04:18 04:57 04:57 WBC 11.3 H 12.0 H RBC 3.60 L 3.23 L Hgb 11.4 L 10.3 L Hct 35.0 L 31.0 L MCV 97 96 MCH 31.6 31.9 MCHC 32.5 33.3 RDW 17.5 H 16.7 H Plt Count 211 237 Sodium 129.0 L Potassium 3.5 L Chloride 94 L Carbon Dioxide 24 Anion Gap 11 BUN 27 H Creatinine 4.43 H Est GFR ( Amer) 12 L Glucose 141 H Calcium 8.2 L 11/01/19 23:31 Blood Blood Culture - Final NO GROWTH IN 5 DAYS 11/01/19 21:08 NT-Pro-B Natriuret Pep [id number] H Impressions: Chest X-Ray 11/01/19 17:07 IMPRESSION: No acute cardiopulmonary disease. New right central venous catheter. Head CT 11/05/19 00:00 IMPRESSION: No acute intracranial abnormality. EVIDENCE OF ACUTE STROKE: NO. Assessment and Plan - Diagnosis (1) Metabolic encephalopathy Is this a current diagnosis for this admission?: Yes Plan: This is slowly improving. She has had an even better improvement in her mental status today. Suspected to be due to occult respiratory infection. She has been on antibiotics and is making an improvement. She is afebrile now. White blood cell count is normal. We will continue antibiotics and monitor her improvement. No other evidence for another site of infection. Suspicion of meningitis is very low. I believe that she is a very frail person and when she gets sick she has no reserve to draw up on and it affects her mental status rather dramatically. She has displayed this sort of behavior during previous admissions for other things. (2) Cough Is this a current diagnosis for this admission?: Yes Plan: She has been started empirically on broad-spectrum antibiotics in case this is some sort of a pneumonia. Her only somatic complaint has been a cough. Cultures are as noted. She ruled out for coronavirus infection. (3) Encounter for observation for suspected exposure to other biological agents ruled out Is this a current diagnosis for this admission?: Yes Plan: Coronavirus testing was negative (4) Fever Qualifiers: Fever type: unspecified Qualified Code(s): R50.9 - Fever, unspecified Is this a current diagnosis for this admission?: Yes Plan: As noted above, now resolved (5) End stage renal failure on dialysis Is this a current diagnosis for this admission?: Yes Plan: Nephrology consulted for hemodialysis (6) Oral thrush Is this a current diagnosis for this admission?: Yes Plan: Checked her EKG and her QTc was 460. We have started fluconazole. It is possible that she has more disseminated candidiasis. - Plan Summary Summary: Patient is admitted to a telemetry bed on the medical floor where she will receive routine supportive and symptomatic cares. A nephrology consultation will be obtained with Dr. Mortensen. She will be treated with IV cefepime and azithromycin. Accu-Cheks to be performed every 4 hours with sliding scale insulin coverage for hyperglycemia and a hypoglycemic protocol in place. Hydralazine and metoprolol will be administered IV as needed to maintain a systolic blood pressure less than 160 and a diastolic blood pressure less than 100. Patient's fever will be treated with acetaminophen as required. Patient may also received external cooling to help reduce her fever. CBCs, metabolic profiles and magnesium levels to be followed on an as-needed basis. Neurochecks will be performed every 4 hours. Serial lactic acid levels will be obtained. Blood and urine cultures are pending. - Time Time Spent with patient: 15-24 minutes
[2019-11-07] MEDS ORDERED: INSULIN REG, HUMAN 100 UNIT/ML 3 ML VIAL (PYX) SUBCUT ONE (14:00)
[2019-11-07] MEDS: ATORVASTATIN CALCIUM 20 MG TABLET PO SCH (21:16)
[2019-11-07] MEDS: ACETAMINOPHEN 325 MG TABLET PO PRN (21:16)
[2019-11-07] MEDS: AMLODIPINE BESYLATE 5 MG TABLET PO SCH (21:16)
[2019-11-07] MEDS: CEFEPIME 1 GM/D5W RTU 1 GM/50 ML RTUPB IV SCH (21:17)
[2019-11-07] MEDS: AZITHROMYCIN 250 MG in DEXTROSE 5%-WATER 250 ML IV SCH (21:17)
[2019-11-08] MEDS: PANTOPRAZOLE SODIUM 40 MG TABLET.DR PO SCH (05:56)
[2019-11-08] MEDS: NITROGLYCERIN 2% OINTMENT 1 GM PACKET TP SCH ×3 (06:00→18:15)
[2019-11-08] MEDS: HEPARIN SOD (PORCINE) 5,000 UNIT/ML 1 ML VIAL SUBCUT SCH ×3 (06:03→22:02)
[2019-11-08 06:29] LABS: HEMATOCRIT 31.6 % (36.0-47.0); HEMOGLOBIN 10.5 g/dL (12.0-15.5); MEAN CORPUSCULAR HGB CONC 33.4 g/dL (32.0-36.0); MEAN CORPUSCULAR VOLUME 96 fl (80-97); PLATELET COUNT 248 10^3/uL (150-450); RED BLOOD COUNT 3.29 10^6/uL (3.72-5.28); RED CELL DISTRIBUTION WIDTH 16.9 % (11.5-14.0); WHITE BLOOD COUNT 9.9 10^3/uL (4.0-10.5)
[2019-11-08 06:52] LABS: ANION GAP 11 (5-19); BLOOD UREA NITROGEN 39 mg/dL (7-20); CALCIUM 8.5 mg/dL (8.4-10.2); CARBON DIOXIDE 24 mmol/L (22-30); CHLORIDE 92 mmol/L (98-107); GLUCOSE 169 mg/dL (75-110); POTASSIUM 3.8 mmol/L (3.6-5.0)
[2019-11-08 06:54] LABS: VANCOMYCIN,TROUGH 17.5 ug/mL (5.0-20.0)
[2019-11-08] MEDS: INSULIN REG, HUMAN 100 UNIT/ML 3 ML VIAL (PYX) SUBCUT SCH ×4 (07:48→22:02)
[2019-11-08] MEDS: PROMETHAZINE HCL INJ 25 MG/1 ML VIAL IV PRN (09:16)
[2019-11-08] MEDS ORDERED: HEPARIN SOD (PORCINE) 1,000 UNIT/ML 10 ML VIAL IV PRN (09:53)
[2019-11-08] MEDS: DOCUSATE SODIUM 100 MG CAPSULE PO SCH ×2 (11:27→18:15)
[2019-11-08] MEDS: GABAPENTIN 100 MG CAPSULE PO SCH ×2 (11:27→22:04)
[2019-11-08] MEDS: HYDRALAZINE HCL INJ/PF 20 MG/1 ML SDV IV PRN (11:29)
--- NOTE | 2019-11-08 13:08 | PDOC PROGRESS REPORT ---
Subjective Progress Note for:: 11/08/19 Reason For Visit: Patient currently being seen while undergoing dialysis. She is awake alert and responsive to questions. She looks like she is back at her baseline. She denies any history of chest pains or shortness of breath. No further history or current witnessed seizures. Labs and medications were reviewed. Dialysis orders were reviewed with the treating dialysis nurse. Physical Exam Vital Signs: Temp Pulse Resp BP Pulse Ox 98.2 F 96 17 162/50 H 98 11/08/19 11:23 11/08/19 11:23 11/08/19 11:23 11/08/19 11:23 11/08/19 11:23 Intake & Output 11/07/19 11/08/19 11/09/19 06:59 06:59 06:59 Intake Total 1300 1656 Output Total 0 0 Balance 1300 1656 Weight 73.9 kg 75.1 kg General appearance: PRESENT: no acute distress Respiratory exam: PRESENT: clear to auscultation carlos. ABSENT: crackles Cardiovascular exam: PRESENT: +S1, +S2 GI/Abdominal exam: PRESENT: normal bowel sounds, soft. ABSENT: organomegaly, tenderness Extremities exam: ABSENT: pedal edema Neurological exam: PRESENT: alert, awake, oriented to person, oriented to place Psychiatric exam: PRESENT: appropriate affect Results Laboratory Results: 11/08/19 06:15 11/08/19 06:15 11/08/19 11/08/19 06:15 06:15 WBC 9.9 RBC 3.29 L Hgb 10.5 L Hct 31.6 L MCV 96 MCH 32.0 MCHC 33.4 RDW 16.9 H Plt Count 248 Sodium 127.1 L Potassium 3.8 Chloride 92 L Carbon Dioxide 24 Anion Gap 11 BUN 39 H Creatinine 5.81 H Est GFR ( Amer) 9 L Glucose 169 H Calcium 8.5 11/01/19 21:08 NT-Pro-B Natriuret Pep [id number] H Impressions: Chest X-Ray 11/01/19 17:07 IMPRESSION: No acute cardiopulmonary disease. New right central venous catheter. Head CT 11/05/19 00:00 IMPRESSION: No acute intracranial abnormality. EVIDENCE OF ACUTE STROKE: NO. Assessment & Plan - Diagnosis (1) Seizure disorder Plan: Currently looks stable and did not see any witnessed seizures while on dialysis. Plans as per hospitalist. (2) Mental status alteration Plan: Looks resolved and currently back at baseline. (3) ESRD (end stage renal disease) Is this a current diagnosis for this admission?: Yes Plan: Patient currently undergoing dialysis. Dialysis being supervised. Dialysis orders were reviewed with the treating dialysis nurse. We will remove1-2 l fluid. (4) Hyperglycemia due to type 2 diabetes mellitus Qualifiers: Diabetes mellitus assisted insulin use: with assisted use Qualified Code(s): E11.65 - Type 2 diabetes mellitus with hyperglycemia; Z79.4 - termite treater helper (current) use of insulin Is this a current diagnosis for this admission?: Yes Plan: Being managed by hospitalist. (5) Hypertension Qualifiers: Is this a current diagnosis for this admission?: Yes Plan: Relatively controlled.
[2019-11-08] MEDS: ACETAMINOPHEN 325 MG TABLET PO PRN ×2 (15:18→20:03)
--- NOTE | 2019-11-08 16:25 | PDOC PROGRESS REPORT ---
Subjective Progress Note for:: 11/08/19 Subjective:: No adverse events overnight. She was sitting up in the bed eating lunch after dialysis today. She still seems convinced that all of this is from mini strokes and she wanted me to give her a medication that would keep it from happening. I think that every time she gets sick she thinks it is a mini stroke. Reason For Visit: FEVER, HYPERTENSIVE URGENCY, HYPERGLYCEMIA AND Physical Exam Vital Signs: Temp Pulse Resp BP Pulse Ox 98.2 F 104 H 17 162/50 H 98 11/08/19 11:23 11/08/19 14:00 11/08/19 11:23 11/08/19 11:23 11/08/19 11:23 Intake & Output 11/07/19 11/08/19 11/09/19 06:59 06:59 06:59 Intake Total 1300 1656 120 Output Total 0 0 2000 Balance 1300 1656 -1880 Weight 73.9 kg 75.1 kg General appearance: PRESENT: disheveled, no apparent distress, scant white film on tongue Eye exam: PRESENT: EOMI, PERRLA. ABSENT: nystagmus, scleral icterus Neck exam: ABSENT: meningismus, tenderness Respiratory exam: PRESENT: clear to auscultation carlos, symmetrical, unlabored. ABSENT: chest wall tenderness, crackles, prolonged expiratory phas, retraction, rhonchi, tachypnea, wheezes Cardiovascular exam: PRESENT: RRR, +S1, +S2 Pulses: PRESENT: normal carotid pulses Vascular exam: PRESENT: normal capillary refill GI/Abdominal exam: PRESENT: normal bowel sounds, soft. ABSENT: distended, guarding, rebound, tenderness Extremities exam: ABSENT: clubbing, pedal edema Musculoskeletal exam: PRESENT: normal inspection. ABSENT: deformity Neurological exam: PRESENT: awake, oriented to person, oriented to situation Skin exam: PRESENT: dry, warm Results Laboratory Results: 11/08/19 06:15 11/08/19 06:15 11/08/19 11/08/19 06:15 06:15 WBC 9.9 RBC 3.29 L Hgb 10.5 L Hct 31.6 L MCV 96 MCH 32.0 MCHC 33.4 RDW 16.9 H Plt Count 248 Sodium 127.1 L Potassium 3.8 Chloride 92 L Carbon Dioxide 24 Anion Gap 11 BUN 39 H Creatinine 5.81 H Est GFR ( Amer) 9 L Glucose 169 H Calcium 8.5 11/01/19 21:08 NT-Pro-B Natriuret Pep [id number] H Impressions: Chest X-Ray 11/01/19 17:07 IMPRESSION: No acute cardiopulmonary disease. New right central venous catheter. Head CT 11/05/19 00:00 IMPRESSION: No acute intracranial abnormality. EVIDENCE OF ACUTE STROKE: NO. Assessment and Plan - Diagnosis (1) Metabolic encephalopathy Is this a current diagnosis for this admission?: Yes Plan: This is slowly improving. She is I believe back to baseline. Suspected to be due to occult respiratory infection. She has been on antibiotics and is making an improvement. She is afebrile now. White blood cell count is normal. We w ill continue antibiotics and monitor her improvement. No other evidence for another site of infection. Suspicion of meningitis is very low. I believe that she is a very frail person and when she gets sick she has no reserve to draw up on and it affects her mental status rather dramatically. She has displayed this sort of behavior during previous admissions for other things. Another possibility is that she had fairly disseminated candidiasis, because after she was on Diflucan for a couple of doses she seemed to get better. This could have been purely coincidental though. She still has some persistent thrush, but it is gotten better. We are awaiting a physical therapy evaluation to see if she needs placement for rehab. (2) Cough Is this a current diagnosis for this admission?: Yes Plan: She has been started empirically on broad-spectrum antibiotics in case this is some sort of a pneumonia. Her only somatic complaint has been a cough. Cultures are as noted. She ruled out for coronavirus infection. We will likely discontinue antibiotics until she is discharged and then stop. (3) Encounter for observation for suspected exposure to other biological agents ruled out Is this a current diagnosis for this admission?: Yes Plan: Coronavirus testing was negative (4) Fever Qualifiers: Fever type: unspecified Qualified Code(s): R50.9 - Fever, unspecified Is this a current diagnosis for this admission?: Yes Plan: As noted above, now resolved (5) End stage renal failure on dialysis Is this a current diagnosis for this admission?: Yes Plan: Nephrology consulted for hemodialysis (6) Oral thrush Is this a current diagnosis for this admission?: Yes Plan: Checked her EKG and her QTc was 460. We have started fluconazole. It is possible that she has more disseminated candidiasis. - Plan Summary Summary: Patient is admitted to a telemetry bed on the medical floor where she will receive routine supportive and symptomatic cares. A nephrology consultation will be obtained with Dr. Mortensen. She will be treated with IV cefepime and a zithromycin. Accu-Cheks to be performed every 4 hours with sliding scale insulin coverage for hyperglycemia and a hypoglycemic protocol in place. Hydralazine and metoprolol will be administered IV as needed to maintain a systolic blood pressure less than 160 and a diastolic blood pressure less than 100. Patient's fever will be treated with acetaminophen as required. Patient may also received external cooling to help reduce her fever. CBCs, metabolic profiles and magnesium levels to be followed on an as-needed basis. Neurochecks will be performed every 4 hours. Serial lactic acid levels will be obtained. Blood and urine cultures are pending. - Time Time Spent with patient: 15-24 minutes
[2019-11-08] MEDS: LORAZEPAM INJ 2 MG/1 ML VIAL IV PRN (18:14)
[2019-11-08] MEDS: FLUCONAZOLE 200 MG/NS RTU 200 MG/100 ML RTUPB IV SCH (18:15)
[2019-11-08] MEDS: VANCOMYCIN HCL 750 MG in DEXTROSE 5%-WATER 250 ML IV SCH (19:56)
[2019-11-08] MEDS: CEFEPIME 1 GM/D5W RTU 1 GM/50 ML RTUPB IV SCH (21:59)
[2019-11-08] MEDS: ATORVASTATIN CALCIUM 20 MG TABLET PO SCH (22:04)
[2019-11-08] MEDS: AMLODIPINE BESYLATE 5 MG TABLET PO SCH (22:04)
[2019-11-08] MEDS: AZITHROMYCIN 250 MG in DEXTROSE 5%-WATER 250 ML IV SCH (23:10)
[2019-11-09] MEDS: NITROGLYCERIN 2% OINTMENT 1 GM PACKET TP SCH ×4 (00:36→18:50)
[2019-11-09] MEDS: HEPARIN SOD (PORCINE) 5,000 UNIT/ML 1 ML VIAL SUBCUT SCH ×3 (05:12→21:42)
[2019-11-09] MEDS: PANTOPRAZOLE SODIUM 40 MG TABLET.DR PO SCH (05:12)
[2019-11-09 05:31] LABS: HEMATOCRIT 30.2 % (36.0-47.0); MEAN CORPUSCULAR HEMOGLOBIN 31.6 pg (27.0-33.4); MEAN CORPUSCULAR HGB CONC 33.1 g/dL (32.0-36.0); MEAN CORPUSCULAR VOLUME 95 fl (80-97); PLATELET COUNT 289 10^3/uL (150-450); RED BLOOD COUNT 3.17 10^6/uL (3.72-5.28); RED CELL DISTRIBUTION WIDTH 16.2 % (11.5-14.0)
[2019-11-09 05:55] LABS: ANION GAP 8 (5-19); BLOOD UREA NITROGEN 25 mg/dL (7-20); CALCIUM 8.3 mg/dL (8.4-10.2); CARBON DIOXIDE 30 mmol/L (22-30); CHLORIDE 94 mmol/L (98-107); GLUCOSE 86 mg/dL (75-110); POTASSIUM 3.6 mmol/L (3.6-5.0)
[2019-11-09] MEDS: INSULIN REG, HUMAN 100 UNIT/ML 3 ML VIAL (PYX) SUBCUT SCH ×4 (07:19→21:43)
[2019-11-09] MEDS: DOCUSATE SODIUM 100 MG CAPSULE PO SCH ×2 (11:40→18:50)
[2019-11-09] MEDS: GABAPENTIN 100 MG CAPSULE PO SCH ×2 (11:41→21:45)
[2019-11-09] MEDS: ACETAMINOPHEN 325 MG TABLET PO PRN ×2 (11:41→18:49)
[2019-11-09] MEDS: PROMETHAZINE HCL INJ 25 MG/1 ML VIAL IV PRN (11:44)
--- NOTE | 2019-11-09 16:22 | PDOC PROGRESS REPORT ---
Subjective Progress Note for:: 11/09/19 Subjective:: Patient states that she feels well today. She would like to know if she needs to be started on all the anti-glycemic medications such as Ozempic. Reason For Visit: FEVER, HYPERTENSIVE URGENCY, HYPERGLYCEMIA AND Physical Exam Vital Signs: Temp Pulse Resp BP Pulse Ox 97.9 F 88 17 146/55 H 100 11/09/19 12:24 11/09/19 12:24 11/09/19 12:24 11/09/19 12:24 11/09/19 12:24 Intake & Output 11/08/19 11/09/19 11/10/19 06:59 06:59 06:59 Intake Total 1656 1215 Output Total 0 2000 Balance 1656 -785 Weight 75.1 kg 71.9 kg 71.9 kg General appearance: PRESENT: no acute distress, cooperative Neck exam: ABSENT: JVD Respiratory exam: PRESENT: clear to auscultation carlos, unlabored. ABSENT: tachypnea, wheezes Cardiovascular exam: PRESENT: RRR, +S1, +S2. ABSENT: tachycardia GI/Abdominal exam: PRESENT: soft Results Laboratory Results: 11/09/19 05:01 11/09/19 05:01 11/09/19 11/09/19 05:01 05:01 WBC 9.0 RBC 3.17 L Hgb 10.0 L Hct 30.2 L MCV 95 MCH 31.6 MCHC 33.1 RDW 16.2 H Plt Count 289 Sodium 131.6 L Potassium 3.6 Chloride 94 L Carbon Dioxide 30 Anion Gap 8 BUN 25 H Creatinine 3.71 H Est GFR ( Amer) 15 L Glucose 86 Calcium 8.3 L 11/01/19 21:08 NT-Pro-B Natriuret Pep [id number] H Impressions: Chest X-Ray 11/01/19 17:07 IMPRESSION: No acute cardiopulmonary disease. New right central venous catheter. Head CT 11/05/19 00:00 IMPRESSION: No acute intracranial abnormality. EVIDENCE OF ACUTE STROKE: NO. Assessment and Plan - Diagnosis (1) Metabolic encephalopathy Is this a current diagnosis for this admission?: Yes Plan: Patient seems to be back to her baseline mental status. Having adequate conversations and seems fully oriented. (2) Cough Is this a current diagnosis for this admission?: Yes Plan: Patient has received several days of antibiotics for possible underlying pneumonia though chest x-ray was not very certain of pneumonia. In either way patient should have completed adequate treatment as she has been on antibiotics for 7 days now. Fevers have resolved completely. Will discontinue all antibiotics. (3) ESRD (end stage renal disease) Is this a current diagnosis for this admission?: Yes Plan: Dialysis as scheduled. Nephrology following. (4) Oral thrush Is this a current diagnosis for this admission?: Yes Plan: Currently on fluconazole (5) Diabetes mellitus type 2 in obese Is this a current diagnosis for this admission?: Yes Plan: Hemoglobin A1c of 11 indicating poor control. Patient seems to be on Tresiba and pre-meal insulin at home. Currently just on sliding scale insulin. Will add Lantus tonight and resume pre-meal insulin as tolerated. - Time Time Spent with patient: 15-24 minutes
[2019-11-09] MEDS: LEVALBUTEROL HCL NEB 0.63 MG/3 ML AMPUL NEB PRN (19:53)
[2019-11-09] MEDS: LORAZEPAM INJ 2 MG/1 ML VIAL IV PRN (20:43)
[2019-11-09] MEDS: AZITHROMYCIN 250 MG in DEXTROSE 5%-WATER 250 ML IV SCH (21:45)
[2019-11-09] MEDS: ATORVASTATIN CALCIUM 20 MG TABLET PO SCH (21:45)
[2019-11-09] MEDS: AMLODIPINE BESYLATE 5 MG TABLET PO SCH (21:45)
[2019-11-09] MEDS: CEFEPIME 1 GM/D5W RTU 1 GM/50 ML RTUPB IV SCH (21:46)
[2019-11-09] MEDS ORDERED: INSULIN GLARGINE,HUM.REC.ANLOG 1,000 UNIT/10 ML VIAL SUBCUT SCH (22:00)
[2019-11-10] MEDS ORDERED: HEPARIN SOD (PORCINE) 1,000 UNIT/ML 10 ML VIAL IV PRN (05:00)
[2019-11-10 05:09] LABS: HEMATOCRIT 27.6 % (36.0-47.0); HEMOGLOBIN 9.3 g/dL (12.0-15.5); MEAN CORPUSCULAR HEMOGLOBIN 32.4 pg (27.0-33.4); MEAN CORPUSCULAR HGB CONC 33.6 g/dL (32.0-36.0); MEAN CORPUSCULAR VOLUME 96 fl (80-97); PLATELET COUNT 331 10^3/uL (150-450); RED BLOOD COUNT 2.86 10^6/uL (3.72-5.28); RED CELL DISTRIBUTION WIDTH 16.2 % (11.5-14.0); WHITE BLOOD COUNT 8.6 10^3/uL (4.0-10.5)
[2019-11-10 05:29] LABS: ANION GAP 8 (5-19); BLOOD UREA NITROGEN 39 mg/dL (7-20); CALCIUM 8.6 mg/dL (8.4-10.2); CARBON DIOXIDE 27 mmol/L (22-30); CHLORIDE 95 mmol/L (98-107); GLUCOSE 135 mg/dL (75-110); POTASSIUM 4.1 mmol/L (3.6-5.0)
[2019-11-10] MEDS: NITROGLYCERIN 2% OINTMENT 1 GM PACKET TP SCH ×3 (05:47→11:54)
[2019-11-10] MEDS: HEPARIN SOD (PORCINE) 5,000 UNIT/ML 1 ML VIAL SUBCUT SCH (05:47)
[2019-11-10] MEDS: PANTOPRAZOLE SODIUM 40 MG TABLET.DR PO SCH (05:50)
[2019-11-10] MEDS: INSULIN REG, HUMAN 100 UNIT/ML 3 ML VIAL (PYX) SUBCUT SCH ×2 (07:39→11:52)
[2019-11-10] MEDS: ACETAMINOPHEN 325 MG TABLET PO PRN (08:32)
[2019-11-10] MEDS: DOCUSATE SODIUM 100 MG CAPSULE PO SCH (09:33)
[2019-11-10] MEDS: GABAPENTIN 100 MG CAPSULE PO SCH (09:33)
[2019-11-10] MEDS ORDERED: GABAPENTIN 100 MG CAPSULE PO ONE (10:00)
[2019-11-10] MEDS ORDERED: INSULIN LISPRO 100 UNIT/ML 3 ML VIAL SUBCUT SCH (11:00)
--- NOTE | 2019-11-10 11:32 | PDOC DISCHARGE SUMMARY ---
Impression - Admit/DC Date/PCP Admission Date/Primary Care Provider: 11/01/19 22:33 IRENE SAMANIEGO Discharge Date: 11/10/19 - Discharge Diagnosis (1) Metabolic encephalopathy Is this a current diagnosis for this admission?: Yes (2) Fever Is this a current diagnosis for this admission?: Yes (3) Cough Is this a current diagnosis for this admission?: Yes (4) Oral thrush Is this a current diagnosis for this admission?: Yes (5) ESRD (end stage renal disease) Is this a current diagnosis for this admission?: Yes (6) Diabetes mellitus type 2 in obese Is this a current diagnosis for this admission?: Yes - Additional Information Resuscitation Status: Full Code Referrals: IRENE SAMANIEGO MD [Primary Care Provider] - Follow up as needed (COVID NEG) Prescriptions: Clonidine [Catapres-Tts 3 (0.3 mg/24 Hr) Transderm Patch] 1 each TD Fr@10 #10 patch.tdwk Fluconazole [Diflucan] 100 mg PO DAILY 3 Days #3 tablet Amlodipine Besylate [Norvasc 5 mg Tablet] 10 mg PO QHS 30 Days Insulin Aspart [Novolog Flexpen] 7 units SUBCUT TID #10 ml Insulin Degludec [Tresiba Flextouch U-100] 20 unit SQ QHS #10 ml Home Medications: Atorvastatin Calcium [Lipitor 20 mg Tablet] 20 mg PO QHS 09/09/19 Gabapentin [Neurontin 100 mg Capsule] 200 mg PO Q12 09/09/19 Varenicline Tartrate [Chantix 1 mg Tablet] 1 mg PO BID 09/09/19 Ferric Citrate [Auryxia] 630 mg PO TID 11/02/19 Ondansetron HCl [Zofran 8 mg Tablet] 8 mg PO Q8HP PRN 11/02/19 Amlodipine Besylate [Norvasc 5 mg Tablet] 10 mg PO QHS 30 Days 11/10/19 Clonidine [Catapres-Tts 3 (0.3 mg/24 Hr) Transderm Patch] 1 each TD Fr@10 #10 patch.tdwk 11/10/19 Fluconazole [Diflucan] 100 mg PO DAILY 3 Days #3 tablet 11/10/19 Insulin Aspart [Novolog Flexpen] 7 units SUBCUT TID #10 ml 11/10/19 Insulin Degludec [Tresiba Flextouch U-100] 20 unit SQ QHS #10 ml 11/10/19 History of Present Illiness History of Present Illness: Per Documentation from admitting provider: SAMIA HEALY is a 59 year old female ESRD patient, who presented to the emergency room with a 2-day history of cough. She and her family admit a nonproductive cough for the last 2 days with an accompanying subjective fever beginning on the morning of admission and generalized malaise. No further admit the associated symptoms of transient right-sided weakness and transient right facial twitching on the morning of admission. They deny other associated or accompanying signs and symptoms. They admit prior similar episodes related to her numerous chronic medical illnesses. They have not identified any aggravating or ameliorating factors for her cough. In the emergency room she was found to have an elevated white count of 12,900 with an elevated lactic acid of 2.6 and a blood sugar of 668. She was also noted to be hypertensive, tachycardic and febrile with a maximum fever of 102.5 F. She was subsequently admitted to the hospital for further evaluation and treatment. Hospital Course Hospital Course: Patient was admitted and evaluated for fever and cough. Chest x-ray did not show any significant opacity but given patient's leukocytosis, fever and cough there was high suspicion for either acute bronchitis or community-acquired pneumonia. Initial provider suspected that lack of manifestation of pneumonia on chest x-ray might have been due to dehydrated state. Patient was treated empirically with broad-spectrum antibiotics which she received for over 7 days with resolution of leukocytosis and fever subsequently. Patient was also tested for COVID-19 which was initially suspected but later ruled out with a negative test. Patient underwent physical therapy and did well towards the end of her stay in terms of physical therapy and cleared for home health. Home health services have been set up for patient. During patient stay in the hospital, patient was also treated for hypertensive urgency. Patient was transitioned to clonidine patches to help foster better compliance as patient was suspected not to be compliant with pills. Patient's hemoglobin A1c also came back elevated at 11. However when patient was placed back on doses of insulin he will less than what she was taking at home, her blood sugars seem to show adequate response raising the question of possible occasional noncompliance leading to the very elevated hemoglobin A1c measured. Patient is being discharged home and given strict instructions to measure her blood sugars and keep a log and follow-up with her primary care provider for further adjustments in her insulin regimen if needed. Patient being treated for oral thrush and to complete 9 days of therapy on fluconazole. Patient received dialysis while in the hospital. Patient was also evaluated for metabolic encephalopathy with head CT which was unremarkable. May have been secondary to infection. Metabolic encephalopathy has resolved for the past several days now. Patient is safe for discharge home. Physical Exam Vital Signs: Temp Pulse Resp BP Pulse Ox 97.6 F 77 16 146/57 H 99 11/10/19 04:04 11/10/19 07:00 11/10/19 04:04 11/10/19 04:04 11/10/19 04:04 Intake & Output 11/09/19 11/10/19 11/11/19 06:59 06:59 06:59 Intake Total 1215 1310 Output Total 2000 Balance -785 1310 Weight 71.9 kg 71 kg General appearance: PRESENT: no acute distress, cooperative Neurological exam: PRESENT: alert, awake, oriented to person, oriented to place, oriented to time, oriented to situation Results Laboratory Results: WBC 8.6 10^3/uL (4.0-10.5) 11/10/19 04:20 RBC 2.86 10^6/uL (3.72-5.28) L 11/10/19 04:20 Hgb 9.3 g/dL (12.0-15.5) L 11/10/19 04:20 Hct 27.6 % (36.0-47.0) L 11/10/19 04:20 MCV 96 fl (80-97) 11/10/19 04:20 MCH 32.4 pg (27.0-33.4) 11/10/19 04:20 MCHC 33.6 g/dL (32.0-36.0) 11/10/19 04:20 RDW 16.2 % (11.5-14.0) H 11/10/19 04:20 Plt Count 331 10^3/uL (150-450) 11/10/19 04:20 Lymph % (Auto) 8.6 % (13-45) L 11/05/19 05:11 [place] % (Auto) 11.5 % (3-13) 11/05/19 05:11 Eos % (Auto) 1.1 % (0-6) 11/05/19 05:11 Baso % (Auto) 0.6 % (0-2) 11/05/19 05:11 Absolute Neuts (auto) 10.1 10^3/uL (1.7-8.2) H 11/05/19 05:11 Absolute Lymphs (auto) 1.1 10^3/uL (0.5-4.7) 11/05/19 05:11 Absolute Monos (auto) 1.5 10^3/uL (0.1-1.4) H 11/05/19 05:11 Absolute Eos (auto) 0.1 10^3/uL (0.0-0.6) 11/05/19 05:11 Absolute Basos (auto) 0.1 10^3/uL (0.0-0.2) 11/05/19 05:11 Seg Neutrophils % 78.2 % (42-78) H 11/05/19 05:11 Sodium 129.8 mmol/L (137-145) L 11/10/19 04:20 Potassium 4.1 mmol/L (3.6-5.0) 11/10/19 04:20 Chloride 95 mmol/L (98-107) L 11/10/19 04:20 Carbon Dioxide 27 mmol/L (22-30) 11/10/19 04:20 Anion Gap 8 (5-19) 11/10/19 04:20 BUN 39 mg/dL (7-20) H 11/10/19 04:20 Creatinine 5.75 mg/dL (0.52-1.25) H 11/10/19 04:20 Est GFR ( Amer) 9 (>60) L 11/10/19 04:20 Est GFR (MDRD) Non-Af 8 (>60) L 11/10/19 04:20 Glucose 135 mg/dL (75-110) H 11/10/19 04:20 POC Glucose 94 mg/dL (70-110) 11/10/19 10:45 Hemoglobin A1c % 11.7 % (4.7-6.0) H 11/02/19 06:00 Lactic Acid 2.4 mmol/L (0.7-2.1) H 11/02/19 00:35 Calcium 8.6 mg/dL (8.4-10.2) 11/10/19 04:20 Phosphorus 8.1 mg/dL (2.5-4.5) H 11/03/19 08:15 Magnesium 1.9 mg/dL (1.6-2.3) 11/03/19 08:15 Total Bilirubin 0.9 mg/dL (0.2-1.3) 11/03/19 08:15 Direct Bilirubin 0.6 mg/dL (0.0-0.4) H 11/03/19 08:15 Neonat Total Bilirubin Not Reportable 11/03/19 08:15 Neonat Direct Bilirubin Not Reportable 11/03/19 08:15 Neonat Indirect Bili Not Reportable 11/03/19 08:15 AST 14 U/L (14-36) 11/03/19 08:15 ALT 10 U/L (<35) 11/03/19 08:15 Alkaline Phosphatase 67 U/L (38-126) 11/03/19 08:15 Ammonia < 8.7 umol/L (9-33) L 11/05/19 18:08 NT-Pro-B Natriuret Pep 22680 pg/mL (<125) H 11/01/19 21:08 Total Protein 6.3 g/dL (6.3-8.2) 11/03/19 08:15 Albumin 3.1 g/dL (3.5-5.0) L 11/03/19 08:15 Urine Color YELLOW 11/01/19 20:10 Urine Appearance CLEAR 11/01/19 20:10 Urine pH 8.0 (5.0-9.0) 11/01/19 20:10 Ur Specific [place] 1.014 11/01/19 20:10 Urine Protein >=500 mg/dL (NEGATIVE) H 11/01/19 20:10 Urine Glucose (UA) >=500 mg/dL (NEGATIVE) H 11/01/19 20:10 Urine Ketones TRACE mg/dL (NEGATIVE) H 11/01/19 20:10 Urine Blood SMALL (NEGATIVE) H 11/01/19 20:10 Urine Nitrite NEGATIVE (NEGATIVE) 11/01/19 20:10 Urine Bilirubin NEGATIVE (NEGATIVE) 11/01/19 20:10 Urine Urobilinogen NEGATIVE mg/dL (<2.0) 11/01/19 20:10 Ur Leukocyte Esterase NEGATIVE (NEGATIVE) 11/01/19 20:10 Urine WBC (Auto) 2 /HPF 11/01/19 20:10 Urine RBC (Auto) 25 /HPF 11/01/19 20:10 U Hyaline Cast (Auto) 1 /LPF 11/01/19 20:10 Urine Mucus (Auto) RARE /LPF 11/01/19 20:10 Urine Ascorbic Acid NEGATIVE (NEGATIVE) 11/01/19 20:10 Time Trough Drawn 0615 11/08/19 06:15 Vancomycin Trough 17.5 ug/mL (5.0-20.0) 11/08/19 06:15 COVID-19 Source NASOPHARYNGEAL 11/01/19 22:13 COVID-19 (LUIS ENRIQUE) NOT DETECTED 11/01/19 22:13 Influenza A (Rapid) NEGATIVE (NEGATIVE) 11/01/19 22:20 Influenza B (Rapid) NEGATIVE (NEGATIVE) 11/01/19 22:20 11/01/19 21:08 NT-Pro-B Natriuret Pep 21313 H Impressions: Chest X-Ray 11/01/19 17:07 IMPRESSION: No acute cardiopulmonary disease. New right central venous catheter. Head CT 11/01/19 17:36 IMPRESSION: No acute intracranial hemorrhage, mass, or evidence of acute territorial infarct. EVIDENCE OF ACUTE STROKE: NO. Head CT 11/05/19 00:00 IMPRESSION: No acute intracranial abnormality. EVIDENCE OF ACUTE STROKE: NO. Plan Time Spent: Greater than 30 Minutes Stroke Is this a Stroke Patient?: No Acute Heart Failure - Is this a Heart Failure Patient?: No
[2019-11-10] MEDS: LEVALBUTEROL HCL NEB 0.63 MG/3 ML AMPUL NEB PRN (11:42)
[2019-11-10] MEDS: LORAZEPAM INJ 2 MG/1 ML VIAL IV PRN (11:52)
--- NOTE | 2019-11-10 12:21 | PDOC PROGRESS REPORT ---
Subjective Progress Note for:: 11/10/19 Reason For Visit: Patient seen today undergoing dialysis. She is awake alert and oriented. She denies any chest pain shortness of breath headaches. No history of further seizures. Labs and medications were reviewed. Physical Exam Vital Signs: Temp Pulse Resp BP Pulse Ox 97.6 F 77 16 146/57 H 99 11/10/19 04:04 11/10/19 07:00 11/10/19 04:04 11/10/19 04:04 11/10/19 04:04 Intake & Output 11/09/19 11/10/19 11/11/19 06:59 06:59 06:59 Intake Total 1215 1310 Output Total 1999 Balance -785 1310 Weight 71.9 kg 71 kg General appearance: PRESENT: no acute distress Respiratory exam: PRESENT: clear to auscultation carlos. ABSENT: crackles Cardiovascular exam: PRESENT: +S1, +S2 GI/Abdominal exam: PRESENT: normal bowel sounds, soft. ABSENT: organomegaly, tenderness Extremities exam: ABSENT: pedal edema Neurological exam: PRESENT: alert, awake, oriented to person, oriented to place Psychiatric exam: PRESENT: appropriate affect Results Laboratory Results: 11/10/19 04:20 11/10/19 04:20 11/10/19 11/10/19 04:20 04:20 WBC 8.6 RBC 2.86 L Hgb 9.3 L Hct 27.6 L MCV 96 MCH 32.4 MCHC 33.6 RDW 16.2 H Plt Count 331 Sodium 129.8 L Potassium 4.1 Chloride 95 L Carbon Dioxide 27 Anion Gap 8 BUN 39 H Creatinine 5.75 H Est GFR ( Amer) 9 L Glucose 135 H Calcium 8.6 11/01/19 21:08 NT-Pro-B Natriuret Pep 61774 H Impressions: Chest X-Ray 11/01/19 17:07 IMPRESSION: No acute cardiopulmonary disease. New right central venous catheter. Head CT 11/05/19 00:00 IMPRESSION: No acute intracranial abnormality. EVIDENCE OF ACUTE STROKE: NO. Assessment & Plan - Diagnosis (1) Seizure disorder Plan: Currently looks stable and did not see any witnessed seizures while on dialysis. Plans as per hospitalist. (2) Mental status alteration Plan: Looks resolved and currently back at baseline. (3) ESRD (end stage renal disease) Is this a current diagnosis for this admission?: Yes Plan: Patient currently undergoing dialysis. Dialysis being supervised. Dialysis orders were reviewed with the treating dialysis nurse. We will remove1-2 l fluid. (4) Hyperglycemia due to type 2 diabetes mellitus Qualifiers: Diabetes mellitus fci insulin use: with termite treater helper use Qualified Code(s): E11.65 - Type 2 diabetes mellitus with hyperglycemia; Z79.4 - correction (current) use of insulin Is this a current diagnosis for this admission?: Yes Plan: Being managed by hospitalist. (5) Hypertension Qualifiers: Is this a current diagnosis for this admission?: Yes Plan: Relatively controlled.
[2019-11-10 13:20] VITALS: BP 145/59
== END 2019-11-10 14:22 | disposition home health service (06) | DRG 304 ==
LOC: ER 16:35 → EH 22:33 → 5 11-02 02:26 → 4N 11-03 19:08
PROVIDERS: ADMIT Emergency Medicine; ATTEND Internal Medicine
PROC: 5A1D70Z Performance of Urinary Filtration, Intermittent, Less than 6 Hours Per Day (ICD-10-PCS; principal; 2019-11-03)
DX: I16.0 Hypertensive urgency (principal); G93.41 Metabolic encephalopathy; N18.6 End stage renal disease; E87.1 Hypo-osmolality and hyponatremia; B37.0 Candidal stomatitis; E11.65 Type 2 diabetes mellitus with hyperglycemia; I12.0 Hypertensive chronic kidney disease with stage 5 chronic kidney disease or end stage renal disease; G40.909 Epilepsy, unspecified, not intractable, without status epilepticus; E11.22 Type 2 diabetes mellitus with diabetic chronic kidney disease; Z99.2 Dependence on renal dialysis; Z88.1 Allergy status to other antibiotic agents; Z88.5 Allergy status to narcotic agent; Z88.0 Allergy status to penicillin; Z91.013 Allergy to seafood; Z03.818 Encounter for observation for suspected exposure to other biological agents ruled out
CPT/HCPCS: 36415; 70450; 71045; 80048; 80053; 80202; 81001; 82140; 82962; 83036; 83605; 83735; 83880; 84100; 85025; 85027; 87040; 87070; 87077; 87086; 87150; 87186; 87635; 87804; 93005; 93010; 94640; 96361; 96374; 96376; 99285; J0360; J0456; J0692; J1450; J1644; J1815; J1885; J2060; J2550; J3370; J3490; J7040; J7060; J7614

== ENCOUNTER 2019-11-12 10:04 | Emergency (ER) | payer MEDICARE, MEDICAID ==
[2019-11-12] MEDS ORDERED: DEXTROSE 50%-WATER 25 GM/50 ML DISP.SYRIN IV ONE ×4 (10:11→13:55)
--- NOTE | 2019-11-12 10:24 | ER Document Report ---
ED General - General Stated Complaint: BLOOOD SUGAR PROBLEMS Time Seen by Provider: 11/12/19 10:08 Primary Care Provider: IRENE SAMANIEGO MD [Primary Care Provider] - Follow up in 1 week Mode of Arrival: Medic Information source: Patient, Emergency Med Personnel, [facility] Records Notes: This 59-year-old female patient was picked up at the [facility] with altered mental status. EMS found her blood sugar was 50, gave oral glucose which did not seem to help and transported to the emergency room. Shortly after arriving the nurse gave her 1 amp of D50 W intravenously. Patient was admitted here on 11/01/2019 and discharged on 11/10/2019, 2 days ago. She did go to dialysis yesterday. She was admitted most recently for fever, hypertensive urgency, and hyperglycemia. She has several admissions in the last few months for uncontrolled hypertension and poorly controlled diabetes. I did note the discharge summary mentions that the patient's blood sugars were well controlled in the hospital on doses of insulin that were less than what she was supposed to be on at home. I would suspect that her office visits show elevated A1c's and high blood sugars prompting increasing prescribed doses of insulin, while she was significantly noncompliant. That may account for why her sugar is so low today, if she is actually started taking the insulin as it was prescribed. She did have an A1c of 11.7, and came in with a blood sugar of 668 on 11/01/2019. The patient states that she did not eat this morning because her blood sugar was elevated at 368. She states she did take her insulin. She is a little drowsy at this time and it is difficult to get precise history about her medications and dosing. TRAVEL OUTSIDE OF THE [place] IN LAST 30 DAYS: No - Related Data Allergies/Adverse Reactions: Penicillins Allergy (Severe, Verified 11/01/19 17:04) rash ciprofloxacin [From Cipro] Allergy (Verified 11/01/19 17:04) shellfish derived Allergy (Verified 11/01/19 17:04) Swelling of tongue oxycodone [From Percocet] Adverse Reaction (Verified 11/01/19 17:04) Past Medical History - General Information source: Patient, Emergency Med Personnel, [facility] Records - Social History Smoking Status: Unknown if Ever Smoked Cigarette use (# per day): No Chew tobacco use (# tins/day): No Smoking Education Provided: No Frequency of alcohol use: None Drug Abuse: None Lives with: Family Family History: DM, Hypertension Patient has suicidal ideation: No Patient has homicidal ideation: No - Past Medical History Cardiac Medical History: Reports: Hx Hypertension Pulmonary Medical History: Reports: Hx Pneumonia Neurological Medical History: Denies: Hx Cerebrovascular Accident Endocrine Medical History: Reports: Hx Diabetes Mellitus Type 2 Renal/ Medical History: Reports: Hx End Stage Renal Disease, Hx Hemodialysis Past Surgical History: Reports: Hx Appendectomy, Hx Section, Hx Cholecystectomy, Hx Orthopedic Surgery - Bilateral foot surgery, Hx Tubal Ligation, Hx Vascular Surgery - fistula upper arm (left) Done at [facility], Other - Hemodialysis vascular access left upper extremity - Immunizations Hx Diphtheria, Pertussis, Tetanus Vaccination: No Hx Pneumococcal Vaccination: 07/21/16 Review of Systems - Review of Systems -: Yes ROS unobtainable due to patient's medical condition - At this time the patient is too lethargic to give any accurate histories. Physical Exam - Vital signs Vitals: Temp Pulse Resp BP Pulse Ox 97.4 F 58 L 14 88/42 L 95 11/12/19 10:17 11/12/19 10:17 11/12/19 10:17 11/12/19 10:17 11/12/19 10:17 Interpretation: Hypotensive - General General appearance: Alert, Lethargic In distress: None - HEENT Head: Normocephalic, Atraumatic Eyes: Normal Pupils: PERRL Mucous membranes: Dry - Respiratory Respiratory status: No respiratory distress Breath sounds: Normal Chest palpation: Other - Right subclavian PermCath - Cardiovascular Rhythm: Regular Heart sounds: Normal auscultation Murmur: Yes Systolic murmur grade 1-6: 3 - Abdominal Inspection: Normal Bowel sounds: Normal Tenderness: Nontender - Back Back: Normal - Extremities General upper extremity: Other - Left upper arm dialysis shunt General lower extremity: Normal inspection - Neurological Neuro grossly intact: Yes - Psychological Associated symptoms: Excessive sleeping - Skin Skin Temperature: Warm Skin Moisture: Dry Skin Color: Normal Course - Re-evaluation Re-evalutation: 11/12/19 10:43 Patient's blood sugar came up to 141 after the amp of D50 W. The blood pressure is 88/41 with a pulse of 58 at this time. 11/12/19 12:03 Patient's blood sugar went back down to 53, she was given another amp of D50 W. Patient's potassium is 2.7 She is quite lethargic and difficult to keep awake so oral potassium would not be safe at this time. We will give her 20 mEq of potassium IV, and then prob ably repeat that if she does not wake up enough to start taking the potassium orally. 11/12/19 13:55 At this time the patient is much more alert. Her most recent Accu-Chek was about 83, and this is after the second amp of D50. Her blood pressure is now up to the 1 20-1 30 systolic range. She will be given an additional amp of D50 W, and another 20 mEq of potassium IV. If she continues to remain alert, we will start feeding her. 11/12/19 16:40 I did discuss the patient's situation at length with Dr. Orozco who did her discharge 2 days ago. He recommends for now we reduce her Tresiba to 14 units at bedtime, and reduce her NovoLog to 5 units before meals, and not to take the medication if she is going to skip a meal. I am concerned that the patient's gout, or might not be accurate because the history she gives me, and the course in the emergency room today does not add up. I will repeat her blood sugar now and have her test her sugar was when she gets home and compare the values. - Vital Signs Vital signs: Temp Pulse Resp BP Pulse Ox 97.4 F 68 12 124/50 L 100 11/12/19 17:18 11/12/19 17:18 11/12/19 17:18 11/12/19 17:18 11/12/19 17:18 - Laboratory Result Diagrams: 11/12/19 10:36 11/12/19 10:36 Laboratory results interpreted by me: 11/12/19 11/12/19 11/12/19 10:10 10:36 10:36 RBC 2.88 L Hgb 9.3 L Hct 28.0 L RDW 16.3 H [place] % (Auto) 17.3 H Baso % (Auto) 2.2 H Sodium 136.6 L Potassium 2.7 L* Carbon Dioxide 31 H Creatinine 2.86 H Est GFR ( Amer) 20 L Est GFR (MDRD) Non-Af 17 L Glucose 187 H POC Glucose 51 L Total Protein 6.2 L Albumin 2.9 L 11/12/19 11/12/19 11/12/19 10:40 11:42 12:27 RBC Hgb Hct RDW [place] % (Auto) Baso % (Auto) Sodium Potassium Carbon Dioxide Creatinine Est GFR ( Amer) Est GFR (MDRD) Non-Af Glucose POC Glucose 141 H 54 L 142 H Total Protein Albumin 11/12/19 11/12/19 15:18 16:55 RBC Hgb Hct RDW [place] % (Auto) Baso % (Auto) Sodium Potassium Carbon Dioxide Creatinine Est GFR ( Amer) Est GFR (MDRD) Non-Af Glucose POC Glucose 120 H 157 H Total Protein Albumin - EKG Interpretation by Me EKG shows normal: Sinus rhythm, [place], Intervals, QRS Complexes, ST-T Waves Rate: Normal - 57 Rhythm: NSR Voltage: Consistant with LVH P Waves: LAE When compared to previous EKG there are: No significant change Critical Care Note - Critical Care Note Total time excluding time spent on procedures (mins): 50 Discharge - Discharge Clinical Impression: Hypoglycemia associated with type 2 diabetes mellitus, Hypokalemia, End stage renal failure on dialysis Altered mental status Qualifiers: Altered mental status type: transient alteration of awareness Qualified Code(s): R40.4 - Transient alteration of awareness Hypotension Qualifiers: Hypotension type: unspecified hypotension type Qualified Code(s): I95.9 - H ypotension, unspecified Condition: Stable Disposition: HOME, SELF-CARE Additional Instructions: The recommendations for your diabetes medicines are to reduce the Tresiba to 14 units at bedtime and reduce your NovoLog to 5 units before meals. Do not take the NovoLog if you decide to skip a meal. Check your blood sugar when you get home and compare it to the Accu-Chek done just before you are discharged. Be sure they check your potassium at dialysis tomorrow. Follow-up with your primary care provider next week to discuss your new insulin recommendations and report what your blood sugars are running. RETURN TO THE EMERGENCY ROOM IF ANY NEW OR WORSENING SYMPTOMS. Referrals: IRENE SAMANIEGO MD [Primary Care Provider] - Follow up in 1 week
[2019-11-12] MEDS ORDERED: NORMAL SALINE 1000 ML 100 ML IV ONE (10:42)
[2019-11-12 10:59] LABS: ABSOLUTE BASOPHILS # (AUTO) 0.1 10^3/uL (0.0-0.2); ABSOLUTE EOSINOPHILS # (AUTO) 0.3 10^3/uL (0.0-0.6); ABSOLUTE LYMPHOCYTES (AUTO) 1.2 10^3/uL (0.5-4.7); ABSOLUTE MONOCYTES (AUTO) 1.1 10^3/uL (0.1-1.4); ABSOLUTE NEUT (AUTO) 3.9 10^3/uL (1.7-8.2); BASOPHILS % (AUTO) 2.2 % (0-2); HEMOGLOBIN 9.3 g/dL (12.0-15.5); LYMPHOCYTES % (AUTO) 17.7 % (13-45); MEAN CORPUSCULAR HEMOGLOBIN 32.1 pg (27.0-33.4); MEAN CORPUSCULAR HGB CONC 33.1 g/dL (32.0-36.0); MEAN CORPUSCULAR VOLUME 97 fl (80-97); MONOCYTES % (AUTO) 17.3 % (3-13); PLATELET COUNT 370 10^3/uL (150-450); RED BLOOD COUNT 2.88 10^6/uL (3.72-5.28); RED CELL DISTRIBUTION WIDTH 16.3 % (11.5-14.0); SEGMENTED NEUTROPHILS % (AUTO) 58.8 % (42-78); TOTAL CELLS COUNTED % (AUTO) 100 %; WHITE BLOOD COUNT 6.6 10^3/uL (4.0-10.5)
[2019-11-12 11:13] LABS: ALBUMIN 2.9 g/dL (3.5-5.0); ALKALINE PHOSPHATASE 84 U/L (38-126); ANION GAP 8 (5-19); ASPARTATE AMINO TRANSFERASE 27 U/L (14-36); BILIRUBIN,DIRECT 0.2 mg/dL (0.0-0.4); BILIRUBIN,TOTAL 0.4 mg/dL (0.2-1.3); BLOOD UREA NITROGEN 17 mg/dL (7-20); CALCIUM 8.6 mg/dL (8.4-10.2); CARBON DIOXIDE 31 mmol/L (22-30); CHLORIDE 98 mmol/L (98-107); CREATINE KINASE 33 U/L (30-135); GLUCOSE 187 mg/dL (75-110); TOTAL PROTEIN 6.2 g/dL (6.3-8.2)
--- NOTE | 2019-11-12 11:13 | RADIOLOGY REPORT (SQ) ---
EXAM DESCRIPTION: CHEST SINGLE VIEW IMAGES COMPLETED DATE/TIME: 11/12/2019 10:58 am REASON FOR STUDY: hypoglycemia COMPARISON: None. EXAM PARAMETERS: NUMBER OF VIEWS: One view. TECHNIQUE: Single frontal radiographic view of the chest acquired. RADIATION DOSE: NA LIMITATIONS: None. FINDINGS: LUNGS AND PLEURA: Incomplete inspiration with minimal retrocardiac hazy opacities. No den se consolidation. No significant effusion. No pneumothorax MEDIASTINUM AND HILAR STRUCTURES: No masses. Contour normal. HEART AND VASCULAR STRUCTURES: Heart normal in size. Normal vasculature. BONES: No acute findings. HARDWARE: Right internal jugular dialysis catheter tip at cavoatrial junction. Vascular stents overl ie left axilla. Cholecystectomy clips. OTHER: No other significant finding. IMPRESSION: Incomplete inspiration with minimal retrocardiac opacities possibly atelectatic change o r developing infiltrate. TECHNICAL DOCUMENTATION: JOB ID: [id number] 2010 [employer]- All Rights Reserved Reading location - IP/workstation name: [email or web address]
[2019-11-12 11:24] LABS: POTASSIUM 2.7 mmol/L (3.6-5.0)
[2019-11-12] MEDS ORDERED: POTASSI CL 20 MEQ/50 ML RIDER 20 MEQ/50 ML RTUPB IV ONE ×2 (11:44→13:52)
[2019-11-12] MEDS ORDERED: HEPARIN SOD (PORCINE) 1,000 UNIT/ML 10 ML VIAL IV ONE (17:01)
[2019-11-12 17:33] VITALS: BP 124/50
--- NOTE | 2019-11-14 10:43 | EKG REPORT ---
SEVERITY:- ABNORMAL ECG - SINUS RHYTHM PROBABLE LEFT ATRIAL ABNORMALITY PROBABLE LVH WITH SECONDARY REPOL ABNRM : Confirmed by: Deng Holt 14-Nov-2019 10:42:36
== END 2019-11-12 17:18 | disposition home or self-care (01) ==
LOC: ER 10:04
DX: E11.649 Type 2 diabetes mellitus with hypoglycemia without coma (principal); E87.6 Hypokalemia; I95.9 Hypotension, unspecified; R41.82 Altered mental status, unspecified; E11.22 Type 2 diabetes mellitus with diabetic chronic kidney disease; I12.0 Hypertensive chronic kidney disease with stage 5 chronic kidney disease or end stage renal disease; N18.6 End stage renal disease; Z99.2 Dependence on renal dialysis; Z88.3 Allergy status to other anti-infective agents; Z88.0 Allergy status to penicillin; Z91.013 Allergy to seafood
CPT/HCPCS: 93005; 96376; 99291; 96375; 96365; 96366; 36415; 82962; 82550; 83735; 85025; 80053; 84484; 71045; 93010; J3490; J1644; J3480; J7030

== ENCOUNTER 2019-11-13 19:52 | Emergency (ER) | payer MEDICARE, MEDICAID ==
[2019-11-13 20:15] VITALS: BP 131/55
--- NOTE | 2019-11-13 20:17 | ER Document Report ---
ED Medical Screen (RME) - General Chief Complaint: Shortness Of Breath Stated Complaint: SHORTNESS OF BREATH Time Seen by Provider: 11/13/19 20:13 Primary Care Provider: IRENE SAMANIEGO MD [Primary Care Provider] - Follow up as needed Mode of Arrival: Wheelchair Information source: Patient Notes: This 59-year-old female with history of TIA and dialysis patient presents today with complaints of shortness of breath and chest heaviness that started approximately 2 hours ago. Patient reports she did have dialysis today but they only took a liter and a half off because her blood pressure dropped. Patient reports she has been eating as normal. Had brunch. Denies fever and vomiting. Denies known exposure to COVID 19 I have greeted and performed a rapid initial assessment of this patient. A comprehensive ED assessment and evaluation of the patient, analysis of test results and completion of the medical decision making process will be conducted by additional ED providers. TRAVEL OUTSIDE OF THE [place] IN LAST 30 DAYS: No - Related Data Allergies/Adverse Reactions: Penicillins Allergy (Severe, Verified 11/01/19 17:04) rash ciprofloxacin [From Cipro] Allergy (Verified 11/01/19 17:04) shellfish derived Allergy (Verified 11/01/19 17:04) Swelling of tongue oxycodone [From Percocet] Adverse Reaction (Verified 11/01/19 17:04) Past Medical History - Past Medical History Cardiac Medical History: Reports: Hx Hypertension Denies: Hx Atrial Fibrillation, Hx Congestive Heart Failure, Hx Coronary Artery Disease, Hx Heart Attack Pulmonary Medical History: Reports: Hx Pneumonia Denies: Hx Asthma, Hx Bronchitis, Hx COPD Neurological Medical History: Denies: Hx Cerebrovascular Accident, Hx Migraine, Hx Seizures Endocrine Medical History: Reports: Hx Diabetes Mellitus Type 2. Denies: Hx Diabetes Mellitus Type 1, Hx Hyperthyroidism, Hx Hypothyroidism Renal/ Medical History: Reports: Hx End Stage Renal Disease, Hx Hemodialysis. Denies: Hx Peritoneal Dialysis GI Medical History: Denies: Hx Cirrhosis, Hx Crohn's Disease, Hx Gastroesophageal Reflux Disease, Hx Hepatitis, Hx Ulcerative Colitis Musculoskeltal Medical History: Denies Hx Arthritis, Denies Hx Fibromyalgia Skin Medical History: Denies Hx Eczema, Denies Hx Psoriasis Psychiatric Medical History: Denies: Hx Depression Infectious Medical History: Denies: Hx Hepatitis Past Surgical History: Reports: Hx Appendectomy, Hx Section, Hx Cholecystectomy, Hx Orthopedic Surgery - Bilateral foot surgery, Hx Tubal Ligation, Hx Vascular Surgery - fistula upper arm (left) Done at [facility], Other - Hemodialysis vascular access left upper extremity - Immunizations Hx Diphtheria, Pertussis, Tetanus Vaccination: No Physical Exam - Vital signs Vitals: Temp Pulse Resp BP Pulse Ox 98.8 F 75 16 131/55 H 100 11/13/19 20:13 11/13/19 20:13 11/13/19 20:13 11/13/19 20:13 11/13/19 20:13 Course - Vital Signs Vital signs: Temp Pulse Resp BP Pulse Ox 98.8 F 75 16 131/55 H 100 11/13/19 20:13 11/13/19 20:13 11/13/19 20:13 11/13/19 20:13 11/13/19 20:13 Doctor's Discharge - Discharge Referrals: IRENE SAMANIEGO MD [Primary Care Provider] - Follow up as needed
--- NOTE | 2019-11-13 23:20 | RADIOLOGY REPORT (SQ) ---
CLINICAL INDICATION: chest pain. TECHNIQUE: A single portable AP view was obtained of the chest at 2300 hours. COMPARISON: November 12, 2019. FINDINGS: The cardiomediastinal silhouette is prominent but stable. The lungs demonstrate chronic change, no adverse change. Metallic stents left upper extremity. Tunneled hemodialysis access catheter remains in good position.. Small bilateral effusion. No pneumothorax.. IMPRESSION: No interval change from yesterday.
[2019-11-13 23:45] LABS: INTERNATIONAL RATION (INR) 1.07; PROTHROMBIN TIME 13.9 SEC (11.4-15.4)
[2019-11-13 23:46] LABS: ABSOLUTE BASOPHILS # (AUTO) 0.1 10^3/uL (0.0-0.2); ABSOLUTE EOSINOPHILS # (AUTO) 0.2 10^3/uL (0.0-0.6); ABSOLUTE LYMPHOCYTES (AUTO) 1.6 10^3/uL (0.5-4.7); ABSOLUTE MONOCYTES (AUTO) 0.9 10^3/uL (0.1-1.4); ABSOLUTE NEUT (AUTO) 3.4 10^3/uL (1.7-8.2); BASOPHILS % (AUTO) 1.5 % (0-2); EOSINOPHILS % (AUTO) 3.4 % (0-6); HEMATOCRIT 27.6 % (36.0-47.0); HEMOGLOBIN 9.2 g/dL (12.0-15.5); LYMPHOCYTES % (AUTO) 25.5 % (13-45); MEAN CORPUSCULAR HEMOGLOBIN 32.8 pg (27.0-33.4); MEAN CORPUSCULAR HGB CONC 33.3 g/dL (32.0-36.0); MEAN CORPUSCULAR VOLUME 99 fl (80-97); MONOCYTES % (AUTO) 14.8 % (3-13); PARTIAL THROMBOPLASTIN TIME 33.5 SEC (23.5-35.8); PLATELET COUNT 394 10^3/uL (150-450); RED CELL DISTRIBUTION WIDTH 16.7 % (11.5-14.0); SEGMENTED NEUTROPHILS % (AUTO) 54.8 % (42-78); TOTAL CELLS COUNTED % (AUTO) 100 %; WHITE BLOOD COUNT 6.2 10^3/uL (4.0-10.5)
[2019-11-14 00:03] LABS: NT PRO BNP 12100 pg/mL (<125)
[2019-11-14 00:24] LABS: ALBUMIN 3.1 g/dL (3.5-5.0); ALKALINE PHOSPHATASE 166 U/L (38-126); ANION GAP 10 (5-19); ASPARTATE AMINO TRANSFERASE 30 U/L (14-36); BILIRUBIN,DIRECT 0.1 mg/dL (0.0-0.4); BILIRUBIN,TOTAL 0.3 mg/dL (0.2-1.3); BLOOD UREA NITROGEN 9 mg/dL (7-20); CALCIUM 8.5 mg/dL (8.4-10.2); CARBON DIOXIDE 30 mmol/L (22-30); CHLORIDE 96 mmol/L (98-107); POTASSIUM 3.2 mmol/L (3.6-5.0); TOTAL PROTEIN 6.2 g/dL (6.3-8.2)
[2019-11-14 00:32] LABS: TROPONIN I < 0.012 ng/mL
[2019-11-14 00:35] LABS: GLUCOSE 443 mg/dL (75-110)
[2019-11-14] MEDS ORDERED: INSULIN REG, HUMAN 100 UNIT/ML 3 ML VIAL (PYX) IV ONE (00:39)
--- NOTE | 2019-11-14 02:03 | ER Document Report ---
Entered by AYE FAY SCRIBE 11/13/19 1188 Acting as scribe for:JAYY CONTRERAS MD ED General - General Chief Complaint: Shortness Of Breath Stated Complaint: SHORTNESS OF BREATH Time Seen by Provider: 11/13/19 20:13 Primary Care Provider: IRENE SAMANIEGO MD [Primary Care Provider] - Follow up as needed Mode of Arrival: Wheelchair Information source: Patient Notes: This 59-year-old female presents to the emergency department complaining of shortness of breath that began four days prior to arrival. Patient explained that she has an associated chest pressure. Patient states that today she went to her dialysis appointment this morning which was stopped after four hours. Patient said that they only dialyzed 1.2 L and the nurse was afraid to take any more fluid due to the patient's low blood pressure. Patient said that she still feels the chest pressure right now. Patient states that she took two Tylenol and one 81 mg Aspirin with no relief. TRAVEL OUTSIDE OF THE [place] IN LAST 30 DAYS: No - Related Data Allergies/Adverse Reactions: Penicillins Allergy (Severe, Verified 11/01/19 17:04) rash ciprofloxacin [From Cipro] Allergy (Verified 11/01/19 17:04) shellfish derived Allergy (Verified 11/01/19 17:04) Swelling of tongue oxycodone [From Percocet] Adverse Reaction (Verified 11/01/19 17:04) Past Medical History - General Information source: Patient - Social History Smoking Status: Former Smoker Cigarette use (# per day): No Chew tobacco use (# tins/day): No Family History: DM, Hypertension Patient has suicidal ideation: No Patient has homicidal ideation: No - Past Medical History Cardiac Medical History: Reports: Hx Hypertension Pulmonary Medical History: Reports: Hx Pneumonia Endocrine Medical History: Reports: Hx Diabetes Mellitus Type 2 Renal/ Medical History: Reports: Hx End Stage Renal Disease, Hx Hemodialysis Past Surgical History: Reports: Hx Appendectomy, Hx Section, Hx Cholecystectomy, Hx Orthopedic Surgery - Bilateral foot surgery, Hx Tubal Ligation, Hx Vascular Surgery - fistula upper arm (left) Done at [facility], Other - Hemodialysis vascular access left upper extremity - Immunizations Hx Diphtheria, Pertussis, Tetanus Vaccination: No Hx Pneumococcal Vaccination: 07/21/16 Review of Systems - Review of Systems Constitutional: No symptoms reported EENT: No symptoms reported Cardiovascular: See HPI, Chest pain Respiratory: See HPI, Short of breath Gastrointestinal: No symptoms reported Genitourinary: No symptoms reported Female Genitourinary: No symptoms reported Musculoskeletal: No symptoms reported Skin: No symptoms reported Hematologic/Lymphatic: No symptoms reported Neurological/Psychological: No symptoms reported -: Yes All other systems reviewed and negative Physical Exam - Vital signs Vitals: Temp Pulse Resp BP Pulse Ox 98.8 F 75 16 131/55 H 100 11/13/19 20:13 11/13/19 20:13 11/13/19 20:13 11/13/19 20:13 11/13/19 20:13 - Notes Notes: Physical Exam: General: Alert, appears well. HEENT: Normocephalic. Atraumatic. PERRL. Extraocular movements intact. Oropharynx clear. Neck: Supple. Non-tender. Respiratory: No respiratory distress. Clear and equal breath sounds bilaterally. Diffuse reproducible chest wall tenderness to palpation. Cardiovascular: Regular rate and rhythm. Abdominal: Normal Inspection. Non-tender. No distension. Normal Bowel Sounds. Back: No gross abnormalities. Extremities: Moves all four extremities. Upper extremities: Normal inspection. Normal ROM. Lower extremities: Normal inspection. No edema. Normal ROM. Neurological: Normal cognition. AAOx4. Normal speech. Psychological: Normal affect. Normal Mood. Skin: Warm. Dry. Normal color. Course - Re-evaluation Re-evalutation: 11/14/19 01:56 Repeat blood sugar 266 after patient received IV insulin regular 6 units for blood sugar 446. - Vital Signs Vital signs: Temp Pulse Resp BP Pulse Ox 98.8 F 75 16 131/55 H 100 11/13/19 20:14 11/13/19 20:13 11/13/19 20:13 11/13/19 20:13 11/13/19 20:13 - Laboratory Result Diagrams: 11/13/19 23:29 11/13/19 23:29 Laboratory results interpreted by me: 11/13/19 11/13/19 11/13/19 23:29 23:29 23:29 RBC 2.80 L Hgb 9.2 L Hct 27.6 L MCV 99 H RDW 16.7 H Porter % (Auto) 14.8 H Sodium 135.5 L Potassium 3.2 L Chloride 96 L Creatinine 2.08 H Est GFR ( Amer) 29 L Est GFR (MDRD) Non-Af 24 L Glucose 443 H* Alkaline Phosphatase 166 H NT-Pro-B Natriuret Pep 13583 H Total Protein 6.2 L Albumin 3.1 L - Diagnostic Test Radiology reviewed: Image reviewed, Reports reviewed Radiology results interpreted by me: 11/14/19 01:54 Radiology report chest x-ray shows cardiomegaly and interstitial markings chest x-ray compared to 1 day ago not any significant interval change. - EKG Interpretation by Me Additional EKG results interpreted by me: 11/14/19 01:55 Twelve-lead EKG shows normal sinus rhythm rate of 75 left atrial abnormality. Left ventricular hypertrophy with secondary repull changes. No other acute process. Discharge - Discharge Clinical Impression: End stage renal disease, CKD (chronic kidney disease) stage V requiring chronic dialysis, Hyperglycemia due to type 1 diabetes mellitus, Anterior chest wall pain, Anemia in chronic kidney disease (CKD) Condition: Stable Disposition: HOME, SELF-CARE Instructions: Chest Wall Pain ([facility]) Additional Instructions: Kidney Failure When your kidneys no longer filter the blood adequately, we call this "kidney failure." While kidney failure can happen suddenly, usually it's the result of many years of slow damage. Kidneys can be injured by many different medical problems including infections, diabetes, high blood pressure, kidney stones, drug toxicity, and immune reactions. The symptoms of kidney failure do not develop until most of the normal kidney tissue has been lost. Early kidney failure usually has no symptoms. As it gets worse, symptoms can include weakness, confusion, high blood pressure, swelling, nausea, anemia, and itching. The seriousness of kidney failure is determined by measuring kidney function tests such as BUN or creatinine. The cause of kidney failure may be obvious from the medical history, but occasionally requires special tests such as an angiogram or kidney biopsy. Kidney failure can cause high blood pressure, and uncontrolled hypertension damages kidneys. Good control of blood pressure is important. If you have diabetes, good blood sugar control helps prevent further kidney damage. Fluid retention can be monitored by checking your weight daily. It's best to eat a diet low in protein, potassium, and salt. When kidney failure becomes severe, dialysis or kidney transplant may be required. Call the doctor or return if you develop significant weakness, repeated vomiting, severe lightheadedness, confusion, severe headache, or other serious change in your health. Hyperglycemia (High Blood Sugar) You have an abnormally high blood sugar. Not all high blood sugar requires long-term treatment. High blood sugar can be due to medications, , or the stress of illness. (These cases are "borderline diabetes.") If the doctor feels your high blood sugar might resolve with time, you may not require treatment now. You will be scheduled for further evaluation. It's very important that you follow through, to see if the blood sugar returns to normal levels. Uncontrolled high blood sugar leads to early heart disease, strokes, nerve damage, eye damage, and kidney damage. Call the physician if there is faintness, excess sleepiness, or very rapid breathing. Recommend taking Tylenol 1000 mg twice a day if needed for chest wall pain. Continue your other medications you are currently taking for control of your di abetes , chronic renal failure ,and hypertension. Referrals: IRENE SAMANIEGO MD [Primary Care Provider] - Follow up as needed I personally performed the services described in the documentation, reviewed and edited the documentation which was dictated to the scribe in my presence, and it accurately records my words and actions.
[2019-11-14] MEDS ORDERED: ACETAMINOPHEN 325 MG TABLET PO ONE (02:04)
--- NOTE | 2019-11-14 10:43 | EKG REPORT ---
SEVERITY:- ABNORMAL ECG - SINUS RHYTHM PROBABLE LEFT ATRIAL ABNORMALITY PROBABLE LVH WITH SECONDARY REPOL ABNRM : Confirmed by: Deng Holt 14-Nov-2019 10:42:24
== END 2019-11-14 02:47 | disposition home or self-care (01) ==
LOC: ER 19:52
DX: E10.22 Type 1 diabetes mellitus with diabetic chronic kidney disease (principal); I12.0 Hypertensive chronic kidney disease with stage 5 chronic kidney disease or end stage renal disease; N18.6 End stage renal disease; D63.1 Anemia in chronic kidney disease; R07.89 Other chest pain; Z99.2 Dependence on renal dialysis; Z88.0 Allergy status to penicillin; Z88.3 Allergy status to other anti-infective agents; Z88.6 Allergy status to analgesic agent; Z91.013 Allergy to seafood; Z90.49 Acquired absence of other specified parts of digestive tract
CPT/HCPCS: 93005; 99285; 36415; 82962; 85025; 85610; 85730; 80053; 84484; 83880; 71045; 93010; A9270 ×2; J1815

== ENCOUNTER 2019-11-30 11:35 | Inpatient (IN) | payer MEDICARE, MEDICAID ==
--- NOTE | 2019-11-30 12:07 | ER Document Report ---
ED GI Bleed / Rectal Pain - General Chief Complaint: Rectal Bleeding Stated Complaint: RECTAL BLEEDING Time Seen by Provider: 11/30/19 11:47 Primary Care Provider: IRENE SAMANIEGO MD [Primary Care Provider] - Follow up as needed Notes: 59-year-old woman presents to the emergency department history of rectal bleeding. States that she has had some dark red blood per rectum which began on 11/28/2019. Apparently she was at dialysis today sneezed hard and noted more blood per rectum. She also complained of some rectal pain with bowel movements and denies abdominal pain. She has a history of hypertension, diabetes mellitus, and end-stage renal disease with dialysis. She notes some mild dizziness which resolved denies chest pain or shortness of breath. TRAVEL OUTSIDE OF THE [place] IN LAST 30 DAYS: No - Related Data Allergies/Adverse Reactions: Penicillins Allergy (Severe, Verified 11/01/19 17:04) rash ciprofloxacin [From Cipro] Allergy (Verified 11/01/19 17:04) shellfish derived Allergy (Verified 11/01/19 17:04) Swelling of tongue oxycodone [From Percocet] Adverse Reaction (Verified 11/01/19 17:04) Past Medical History - Social History Smoking Status: Former Smoker Family History: DM, Hypertension Patient has homicidal ideation: No - Past Medical History Cardiac Medical History: Reports: Hx Hypertension Denies: Hx Atrial Fibrillation, Hx Congestive Heart Failure, Hx Coronary Artery Disease, Hx Heart Attack Pulmonary Medical History: Reports: Hx Pneumonia Denies: Hx Asthma, Hx Bronchitis, Hx COPD Neurological Medical History: Denies: Hx Cerebrovascular Accident, Hx Migraine, Hx Seizures Endocrine Medical History: Reports: Hx Diabetes Mellitus Type 2. Denies: Hx Diabetes Mellitus Type 1, Hx Hyperthyroidism, Hx Hypothyroidism Renal/ Medical History: Reports: Hx End Stage Renal Disease, Hx Hemodialysis. Denies: Hx Peritoneal Dialysis GI Medical History: Denies: Hx Cirrhosis, Hx Crohn's Disease, Hx Gastroesophageal Reflux Disease, Hx Hepatitis, Hx Ulcerative Colitis Musculoskeletal Medical History: Denies Hx Arthritis, Denies Hx Fibromyalgia Skin Medical History: Denies Hx Eczema, Denies Hx Psoriasis Psychiatric Medical History: Denies: Hx Depression Infectious Medical History: Denies: Hx Hepatitis Past Surgical History: Reports: Hx Appendectomy, Hx Section, Hx Cholecystectomy, Hx Orthopedic Surgery - Bilateral foot surgery, Hx Tubal Ligation, Hx Vascular Surgery - fistula upper arm (left) [facility], Other - Hemodialysis vascular access left upper extremity - Immunizations Hx Diphtheria, Pertussis, Tetanus Vaccination: No Hx Pneumococcal Vaccination: 07/21/16 Review of Systems - Review of Systems Notes: Constitutional: Negative for fever. HENT: Negative for sore throat. Eyes: Negative for visual changes. Cardiovascular: Negative for chest pain. Respiratory: Negative for shortness of breath. Gastrointestinal: See HPI Genitourinary: Negative for dysuria. Musculoskeletal: Negative for back pain. Skin: Negative for rash. Neurological: Negative for headaches, weakness or numbness. 10 point ROS negative except as marked above and in HPI. Physical Exam - Vital signs Vitals: Temp Resp BP Pulse Ox 98.3 F 12 137/66 H 98 11/30/19 11:40 11/30/19 11:40 11/30/19 11:40 11/30/19 11:40 - Notes Notes: PHYSICAL EXAMINATION: Physical Exam: General: Well-nourished well-developed in no acute distress HEENT: NC/AT, pupils equal round and reactive to light, MM moist,nares clear, oropharynx clear, airway patent Neck: supple, no adenopathy, no masses. Good range of motion Lungs: clear, no wheezing, no rales no rhonchi Chest: Right-sided permacath. CVS: Regular rate and rhythm no murmur gallop or rub Abdomen: Soft, active, nontender, no masses, no hepatosplenomegaly Ext: + AV fistula left upper extremity, normal range of motion. Neuro: Alert and responsive, moving all 4 extremities on command, cranial nerves intact, no focal findings Skin: Intact no open lesions, no rash PSYCH: Normal mood, normal affect. Course - Re-evaluation Re-evalutation: 11/30/19 13:11 Patient presents with history of GI bleeding, hemoglobin today is 5.1, previous hemoglobin was 9.3 November 13, 2019. She is hemodynamically stable and denies abdominal pain at this time. Patient is typed and crossmatched for 2 units of packed RBCs and a order for transfusion of the 2 units of blood are placed in the patient order set. She is also given Protonix 80 mg bolus with a Protonix drip. Dr. Wright gastroenterology on-call was contacted and states that he will consult the patient as an inpatient. Hospitalist services contacted, TRELL Drew states that the patient can be admitted to the [facility], Dr. De La Fuente. - Vital Signs Vital signs: Temp Pulse Resp BP Pulse Ox 98.3 F 18 114/79 99 11/30/19 11:48 11/30/19 13:01 11/30/19 13:01 11/30/19 13:01 - Laboratory Result Diagrams: 11/30/19 11:40 11/30/19 11:40 Laboratory results interpreted by me: 11/30/19 11/30/19 11/30/19 11:40 11:40 11:40 WBC 12.5 H RBC 1.52 L Hgb 5.1 L Hct 15.5 L MCV 102 H RDW 20.2 H Absolute Neuts (auto) 8.9 H Sodium 135.4 L Chloride 97 L Carbon Dioxide 31 H Creatinine 1.91 H Est GFR ( Amer) 33 L Est GFR (MDRD) Non-Af 27 L Glucose 192 H Calcium 8.2 L Albumin 3.3 L Crossmatch See Detail - EKG Interpretation by Me EKG shows normal: Sinus rhythm - rate 88, left atrial abnormality, no acute ST or T wave abnormalities. Critical Care Note - Critical Care Note Total time excluding time spent on procedures (mins): 45 - Critical care time spent obtaining history from patient or surrogate, discussions with consultants, development of treatment plan with patient or surrogate, evaluation of patient's response to treatment, examination of patient, ordering and performing treatments and interventions, ordering and review of laboratory studies, re- evaluation of patient's condition, ordering and review of radiographic studies and review of old charts Discharge - Discharge Clinical Impression: End-stage renal disease on hemodialysis GI bleed Qualifiers: GI bleed type/associated pathology: unspecified gastrointestinal hemorrhage type Qualified Code(s): K92.2 - Gastrointestinal hemorrhage, unspecified Anemia Qualifiers: Anemia type: unspecified type Qualified Code(s): D64.9 - Anemia, unspecified Condition: Good Disposition: ADMITTED INPATIENT Admitting Provider: Sudhakar (Hospitalist) Unit Admitted: [facility] Referrals: IRENE SAMANIEGO MD [Primary Care Provider] - Follow up as needed
[2019-11-30 12:11] LABS: ABSOLUTE BASOPHILS # (AUTO) 0.2 10^3/uL (0.0-0.2); ABSOLUTE EOSINOPHILS # (AUTO) 0.1 10^3/uL (0.0-0.6); ABSOLUTE LYMPHOCYTES (AUTO) 2.4 10^3/uL (0.5-4.7); ABSOLUTE MONOCYTES (AUTO) 0.8 10^3/uL (0.1-1.4); ABSOLUTE NEUT (AUTO) 8.9 10^3/uL (1.7-8.2); BASOPHILS % (AUTO) 1.6 % (0-2); EOSINOPHILS % (AUTO) 1.1 % (0-6); HEMATOCRIT 15.5 % (36.0-47.0); LYMPHOCYTES % (AUTO) 19.5 % (13-45); MEAN CORPUSCULAR HEMOGLOBIN 33.3 pg (27.0-33.4); MEAN CORPUSCULAR HGB CONC 32.6 g/dL (32.0-36.0); MEAN CORPUSCULAR VOLUME 102 fl (80-97); MONOCYTES % (AUTO) 6.4 % (3-13); PLATELET COUNT 384 10^3/uL (150-450); RED BLOOD COUNT 1.52 10^6/uL (3.72-5.28); RED CELL DISTRIBUTION WIDTH 20.2 % (11.5-14.0); SEGMENTED NEUTROPHILS % (AUTO) 71.4 % (42-78); TOTAL CELLS COUNTED % (AUTO) 100 %; WHITE BLOOD COUNT 12.5 10^3/uL (4.0-10.5)
[2019-11-30 12:13] LABS: HEMOGLOBIN 5.1 g/dL (12.0-15.5)
[2019-11-30] MEDS ORDERED: PANTOPRAZOLE SODIUM 40 MG VIAL IV ONE (12:25)
[2019-11-30] MEDS ORDERED: NORMAL SALINE 250 ML IV PRN ×2 (12:27)
[2019-11-30 12:28] LABS: ALBUMIN 3.3 g/dL (3.5-5.0); ALKALINE PHOSPHATASE 92 U/L (38-126); ANION GAP 7 (5-19); ASPARTATE AMINO TRANSFERASE 23 U/L (14-36); BILIRUBIN,DIRECT 0.1 mg/dL (0.0-0.4); BILIRUBIN,TOTAL 0.4 mg/dL (0.2-1.3); BLOOD UREA NITROGEN 17 mg/dL (7-20); CALCIUM 8.2 mg/dL (8.4-10.2); CARBON DIOXIDE 31 mmol/L (22-30); CHLORIDE 97 mmol/L (98-107); GLUCOSE 192 mg/dL (75-110); POTASSIUM 4.2 mmol/L (3.6-5.0); TOTAL PROTEIN 6.4 g/dL (6.3-8.2)
[2019-11-30] MEDS: PANTOPRAZOLE SODIUM 40 MG VIAL IV PRN ×2 (12:33→23:00)
[2019-11-30] MEDS ORDERED: MAGNESIUM HYDROXIDE SUSP 30 ML UDCUP PO PRN (15:19)
[2019-11-30] MEDS ORDERED: ACETAMINOPHEN 325 MG TABLET PO PRN (15:19)
[2019-11-30] MEDS ORDERED: MAG HYDROX/AL HYDROX/SIMETH SUSP 30 ML UDCUP PO PRN (15:19)
[2019-11-30] MEDS ORDERED: TEMAZEPAM 7.5 MG CAPSULE PO PRN (15:19)
[2019-11-30] MEDS ORDERED: ONDANSETRON HCL INJ/PF 4 MG/2 ML SDV IV PRN (15:19)
[2019-11-30] MEDS ORDERED: ONDANSETRON 4 MG TAB.RAPDIS PO PRN (15:19)
[2019-11-30] MEDS ORDERED: MECLIZINE HCL 12.5 MG TABLET PO PRN (15:31)
[2019-11-30] MEDS ORDERED: DEXTROSE 50%-WATER 25 GM/50 ML DISP.SYRIN IV PRN ×2 (15:32)
[2019-11-30] MEDS ORDERED: GLUCAGON,HUMAN RECOMB 1 MG INJ IM PRN (15:32)
[2019-11-30] MEDS ORDERED: DEXTROSE 40% GEL 15 GM TUBE PO PRN ×2 (15:32)
[2019-11-30] MEDS: INSULIN LISPRO 100 UNIT/ML 3 ML VIAL SUBCUT SCH ×2 (15:48→22:03)
[2019-11-30] MEDS ORDERED: (PENDING PHARMACY ID) (Sucroferric Oxyhydroxide [Velphoro] 500 MG) PO SCH (16:00)
--- NOTE | 2019-11-30 16:03 | PDOC CONSULTATION ---
Consultation Consult Date: 11/30/19 Provider Consulted: JIHAN CORTEZ Consult reason:: GI bleeding History of Present Illness Admission Date/PCP: 11/30/19 13:48 IRENE SAMANIEGO History of Present Illness: SAMIA HEALY is a 59 year old female patient to ED with rectal bleeding has been seen dark red rectal bleeding patient is on dialysis and has chronic anemia admitted for GI bleeding will need both EGD and colonoscopy patient states no abdominal pain denies any changes in her appetite will schedule in the OR Past Medical History Cardiac Medical History: Reports: Hypertension Denies: Atrial Fibrillation, Congestive Heart Failure, Coronary Artery Dise ase, Myocardial Infarction Pulmonary Medical History: Reports: Pneumonia Denies: Asthma, Bronchitis, Chronic Obstructive Pulmonary Disease (COPD) Neurological Medical History: Denies: Migraine, Seizures Endocrine Medical History: Reports: Diabetes Mellitus Type 2 Denies: Diabetes Mellitus Type 1, Hyperthyroidism, Hypothyroidism Renal/ Medical History: Reports: End Stage Renal Disease GI Medical History: Denies: Cirrhosis, Crohn's Disease, Gastroesophageal Reflux Disease, Hepatitis, Ulcerative Colitis Musculoskeltal Medical History: Denies: Arthritis, Fibromyalgia Skin Medical History: Denies: Eczema, Psoriasis Psychiatric Medical History: Denies: Depression Hematology: Reports: Anemia - Chronic due to ESRD Denies: Bleeding Tendencies Past Surgical History Past Surgical History: Reports: Appendectomy, Section, Cholecystectomy, Orthopedic Surgery - Bilateral foot surgery, Tubal Ligation, Vascular Surgery - fistula upper arm (left) Done at [facility], Other - Hemodialysis vascular access left upper extremity Social History Smoking Status: Former Smoker Frequency of Alcohol Use: None Hx Recreational Drug Use: No Drugs: None Hx Prescription Drug Abuse: No Family History Family History: DM, Hypertension Parental Family History Reviewed: Yes Children Family History Reviewed: Unknown Sibling(s) Family History Reviewed.: Unknown Medication/Allergy Home Medications: Atorvastatin Calcium [Lipitor 20 mg Tablet] 20 mg PO QHS 09/09/19 Gabapentin [Neurontin 100 mg Capsule] 300 mg PO Q8 09/09/19 Ondansetron HCl [Zofran 8 mg Tablet] 8 mg PO Q8HP PRN 11/02/19 Amlodipine Besylate [Norvasc 5 mg Tablet] 10 mg PO QHS 30 Days 11/10/19 Aspirin [Aspirin 81 mg Chewable Tablet] 81 mg PO DAILY 11/30/19 Clonidine HCl 0.3 mg PO Q8 11/30/19 Insulin Aspart [Novolog Flexpen] 5 units SUBCUT TID 11/30/19 Insulin Degludec [Tresiba Flextouch U-100] 14 unit SQ QHS 11/30/19 Meclizine HCl [Antivert 12.5 mg Tablet] 12.5 mg PO ASDIR PRN 11/30/19 Sucroferric Oxyhydroxide [Velphoro] 500 mg PO AC 11/30/19 Allergies/Adverse Reactions: Penicillins Allergy (Severe, Verified 11/01/19 17:04) rash ciprofloxacin [From Cipro] Allergy (Verified 11/01/19 17:04) shellfish derived Allergy (Verified 11/01/19 17:04) Swelling of tongue oxycodone [From Percocet] Adverse Reaction (Verified 11/01/19 17:04) Review of Systems Constitutional: ABSENT: fever(s), headache(s), night sweats, weakness Eyes: ABSENT: visual disturbances Ears: ABSENT: hearing changes Nose, Mouth, and Throat: ABSENT: mouth pain, sore throat Cardiovascular: ABSENT: edema, orthropnea Respiratory: ABSENT: dyspnea, hemoptysis Gastrointestinal: PRESENT: hematochezia, melena. ABSENT: dysphagia, heartburn, hematemesis Genitourinary: ABSENT: dysuria, hematuria Integumentary: ABSENT: lesions, pruritus Neurological: ABSENT: syncope, tingling, tremor(s), vertigo Endocrine: ABSENT: polydipsia, polyphagia, polyuria Hematologic/Lymphatic: PRESENT: easy bruising Physical Exam Vital Signs: Temp Pulse Resp BP Pulse Ox 98.3 F 87 12 141/59 H 100 11/30/19 14:25 11/30/19 14:25 11/30/19 15:46 11/30/19 15:46 11/30/19 15:46 Intake & Output 11/29/19 11/30/19 12/01/19 06:59 06:59 06:59 Intake Total 0 Balance 0 Weight 64 kg General appearance: PRESENT: no acute distress, well-developed, well-nourished Head exam: PRESENT: atraumatic, normocephalic Eye exam: PRESENT: EOMI, PERRLA. ABSENT: nystagmus, periorbital swelling, scleral icterus Mouth exam: PRESENT: moist, neck supple Throat exam: ABSENT: tonsillogmegaly Neck exam: ABSENT: meningismus, tenderness, thyromegaly Respiratory exam: PRESENT: symmetrical, unlabored. ABSENT: tachypnea, wheezes Cardiovascular exam: PRESENT: RRR, +S1, +S2 GI/Abdominal exam: PRESENT: normal bowel sounds, soft. ABSENT: Meyers's sign, organolmegaly, rebound, rigid Neurological exam: PRESENT: alert, awake, CN II-XII grossly intact Skin exam: PRESENT: normal color. ABSENT: mottled, pallor, urticaria, vesicles Results Laboratory Results: 11/30/19 11:40 11/30/19 11:40 11/30/19 11/30/19 11/30/19 11:40 11:40 11:40 WBC 12.5 H RBC 1.52 L Hgb 5.1 L Hct 15.5 L MCV 102 H MCH 33.3 MCHC 32.6 RDW 20.2 H Plt Count 384 Seg Neutrophils % 71.4 Sodium 135.4 L Potassium 4.2 Chloride 97 L Carbon Dioxide 31 H Anion Gap 7 BUN 17 Creatinine 1.91 H Est GFR ( Amer) 33 L Glucose 192 H Calcium 8.2 L Total Bilirubin 0.4 AST 23 Alkaline Phosphatase 92 Total Protein 6.4 Albumin 3.3 L Blood Type O POSITIVE Antibody Screen NEGATIVE Assessment & Plan - Diagnosis (1) Anemia Qualifiers: Anemia type: unspecified type Qualified Code(s): D64.9 - Anemia, unspecified (2) GI bleed Qualifiers: GI bleed type/associated pathology: unspecified gastrointestinal hemorrhage type Qualified Code(s): K92.2 - Gastrointestinal hemorrhage, unspecified Plan: will schedule a colonoscopy for her Risks, benefits and alternatives are discussed with the patient in detail if negative may have to consider EGD since could have AVM's as well however I will speak to hospitalist to make sure we rule out Covid 19 with antibody testing further recommendations to follow patient to continue her dialysis transfuse as necessary - Time Time Spent: 50 to 70 Minutes
--- NOTE | 2019-11-30 16:12 | RADIOLOGY REPORT (SQ) ---
EXAM DESCRIPTION: CHEST SINGLE VIEW IMAGES COMPLETED DATE/TIME: 11/30/2019 3:53 pm REASON FOR STUDY: sob COMPARISON: 11/13/2019 EXAM PARAMETERS: NUMBER OF VIEWS: One view. TECHNIQUE: Single frontal radiographic view of the chest acquired. RADIATION DOSE: NA LIMITATIONS: None. FINDINGS: LUNGS AND PLEURA: No opacities, masses or pneumothorax. No pleural effusion. MEDIASTINUM AND HILAR STRUCTURES: No masses. Contour normal. HEART AND VASCULAR STRUCTURES: Heart size is stable slightly enlarged. No failure. BONES: No acute findings. HARDWARE: Dialysis catheter remains in place. Vascular stents overlie the left axilla. OTHER: No other significant finding. IMPRESSION: NO ACUTE RADIOGRAPHIC FINDING IN THE CHEST. TECHNICAL DOCUMENTATION: JOB ID: [id number] [email or web address]- All Rights Reserved Reading location - IP/workstation name: [email or web address]
--- NOTE | 2019-11-30 16:30 | Progress Note ---
Provider Note Provider Note: Patient will have rapid COVID testing done today, due to the fact that patient has an active GI bleed and will need intervention potentially in the next 24 hours
[2019-11-30] MEDS ORDERED: PEG 3350/NA SULF,BICARB,CL/KCL 4000 ML PO ONE (17:00)
[2019-11-30] MEDS ORDERED: INSULIN LISPRO 100 UNIT/ML 3 ML VIAL SUBCUT SCH (18:00)
[2019-11-30] MEDS ORDERED: (PENDING PHARMACY ID) (Insulin Aspart [Novolog Flexpen] 5 UNITS) SUBCUT SCH (18:00)
--- NOTE | 2019-11-30 18:06 | PDOC H&P ---
History of Present Illness Admission Date/PCP: 11/30/19 13:48 IRENE SAMANIEGO History of Present Illness: SAMIA HEALY is a 59 year old female who was admitted from the emergency room with rectal bleeding for the last 2 to 3 days. Patient has end-stage renal disease on hemodialysis.. States that for the last 2 to 3 days she is felt a little "dizzy" and has reported falling secondary to being dizzy. Tells me that she has been taking aspirin for her arthritis.. States that the blood that she has been passing per rectum has been dark, but does not use the term black or tarry. Since last hemoglobin on November 13, 2019 was 9.2 and today it is down to 5.1. Since baseline appears to be around 10 She is now to be admitted for IV Protonix and further GI work-up.. She will be kept n.p.o. after midnight.. Gastroenterology, Dr. Wright, has seen the patient will follow the patient with us.. Past Medical History Cardiac Medical History: Reports: Hypertension Denies: Atrial Fibrillation, Congestive Heart Failure, Coronary Artery Disease, Myocardial Infarction Pulmonary Medical History: Reports: Pneumonia Denies: Asthma, Bronchitis, Chronic Obstructive Pulmonary Disease (COPD) Neurological Medical History: Denies: Migraine, Seizures Endocrine Medical History: Reports: Diabetes Mellitus Type 2 Denies: Diabetes Mellitus Type 1, Hyperthyroidism, Hypothyroidism Renal/ Medical History: Reports: End Stage Renal Disease GI Medical History: Denies: Cirrhosis, Crohn's Disease, Gastroesophageal Reflux Disease, Hepatitis, Ulcerative Colitis Musculoskeltal Medical History: Denies: Arthritis, Fibromyalgia Skin Medical History: Denies: Eczema, Psoriasis Psychiatric Medical History: Denies: Depression Hematology: Reports: Anemia - Chronic due to ESRD Denies: Bleeding Tendencies Past Surgical History Past Surgical History: Reports: Appendectomy, Section, Cholecystectomy, Orthopedic Surgery - Bilateral foot surgery, Tubal Ligation, Vascular Surgery - fistula upper arm (left) Done at [facility], Other - Hemodialysis vascular access left upper extremity Social History Smoking Status: Former Smoker Frequency of Alcohol Use: None Hx Recreational Drug Use: No Drugs: None Hx Prescription Drug Abuse: No - Advance Directive Resuscitation Status: Full Code Family History Family History: DM, Hypertension Parental Family History Reviewed: No Children Family History Reviewed: No Sibling(s) Family History Reviewed.: No Medication/Allergy Home Medications: Atorvastatin Calcium [Lipitor 20 mg Tablet] 20 mg PO QHS 09/09/19 Gabapentin [Neurontin 100 mg Capsule] 300 mg PO Q8 09/09/19 Ondansetron HCl [Zofran 8 mg Tablet] 8 mg PO Q8HP PRN 11/02/19 Amlodipine Besylate [Norvasc 5 mg Tablet] 10 mg PO QHS 30 Days 11/10/19 Aspirin [Aspirin 81 mg Chewable Tablet] 81 mg PO DAILY 11/30/19 Clonidine HCl 0.3 mg PO Q8 11/30/19 Insulin Aspart [Novolog Flexpen] 5 units SUBCUT TID 11/30/19 Insulin Degludec [Tresiba Flextouch U-100] 14 unit SQ QHS 11/30/19 Meclizine HCl [Antivert 12.5 mg Tablet] 12.5 mg PO ASDIR PRN 11/30/19 Sucroferric Oxyhydroxide [Velphoro] 500 mg PO AC 11/30/19 Allergies/Adverse Reactions: Penicillins Allergy (Severe, Verified 11/01/19 17:04) rash ciprofloxacin [From Cipro] Allergy (Verified 11/01/19 17:04) shellfish derived Allergy (Verified 11/01/19 17:04) Swelling of tongue oxycodone [From Percocet] Adverse Reaction (Verified 11/01/19 17:04) Review of Systems Constitutional: PRESENT: as per HPI, weakness, other - Dizzy Respiratory: ABSENT: cough, hemoptysis Gastrointestinal: ABSENT: abdominal pain, constipation, diarrhea, hematemesis, hematochezia, nausea, vomiting Neurological: ABSENT: abnormal gait, abnormal speech, confusion, dizziness, focal weakness, syncope Psychiatric: ABSENT: anxiety, depression, homidical ideation, suicidal ideation Physical Exam Vital Signs: Temp Pulse Resp BP Pulse Ox 98.3 F 84 16 171/42 H 100 11/30/19 17:55 11/30/19 17:55 11/30/19 17:55 11/30/19 17:55 11/30/19 17:55 Intake & Output 11/29/19 11/30/19 12/01/19 06:59 06:59 06:59 Intake Total 300 Balance 300 Weight 64 kg General appearance: PRESENT: no acute distress Respiratory exam: PRESENT: clear to auscultation carlos. ABSENT: rales, rhonchi, wheezes Cardiovascular exam: PRESENT: RRR. ABSENT: diastolic murmur, rubs, systolic murmur GI/Abdominal exam: PRESENT: normal bowel sounds, soft Neurological exam: PRESENT: alert, awake, oriented to person, oriented to place, oriented to time, oriented to situation, CN II-XII grossly intact. ABSENT: motor sensory deficit Psychiatric exam: PRESENT: appropriate affect, normal mood. ABSENT: homicidal ideation, suicidal ideation Results Laboratory Results: 11/30/19 11:40 11/30/19 11:40 11/30/19 11/30/19 11/30/19 11:40 11:40 11:40 WBC 12.5 H RBC 1.52 L Hgb 5.1 L Hct 15.5 L MCV 102 H MCH 33.3 MCHC 32.6 RDW 20.2 H Plt Count 384 Seg Neutrophils % 71.4 Sodium 135.4 L Potassium 4.2 Chloride 97 L Carbon Dioxide 31 H Anion Gap 7 BUN 17 Creatinine 1.91 H Est GFR ( Amer) 33 L Glucose 192 H Calcium 8.2 L Total Bilirubin 0.4 AST 23 Alkaline Phosphatase 92 Total Protein 6.4 Albumin 3.3 L Blood Type O POSITIVE Antibody Screen NEGATIVE Impressions: Chest X-Ray 11/30/19 15:26 IMPRESSION: NO ACUTE RADIOGRAPHIC FINDING IN THE CHEST. Assessment and Plan - Diagnosis (1) Anemia Qualifiers: Anemia type: unspecified type Qualified Code(s): D64.9 - Anemia, unspeci fied Is this a current diagnosis for this admission?: Yes (2) End-stage renal disease on hemodialysis Is this a current diagnosis for this admission?: Yes (3) GI bleed Qualifiers: GI bleed type/associated pathology: unspecified gastrointestinal hemorrhage type Qualified Code(s): K92.2 - Gastrointestinal hemorrhage, unspecified Is this a current diagnosis for this admission?: Yes (4) Diabetes mellitus type 2 in nonobese Is this a current diagnosis for this admission?: Yes (5) Hypertension Qualifiers: Is this a current diagnosis for this admission?: Yes - Plan Summary Summary: Patient will be admitted to the hospital tonight kept n.p.o. after midnight. Will have a rapid COVID-19 drawn so that we will know the results quickly. Will probably need an upper and lower endoscopy by GI. She will be transfused with packed red cells. Serial labs will be checked - Time Time Spent with patient: 35 or more minutes
[2019-11-30] MEDS ORDERED: POLYETHYLENE GLYCOL 3350 POWDER 17 GM/1 PACKET PO ONE (18:30)
[2019-11-30] MEDS ORDERED: INSULIN DEGLUDEC 14 UNIT SUBCUT SCH (22:00)
[2019-11-30] MEDS ORDERED: (PENDING PHARMACY ID) (Clonidine Hcl [Clonidine Hcl] 0.3 MG) PO SCH (22:00)
[2019-11-30] MEDS ORDERED: AMLODIPINE BESYLATE 5 MG TABLET PO SCH (22:00)
[2019-11-30] MEDS ORDERED: GABAPENTIN 100 MG CAPSULE PO SCH (22:00)
[2019-11-30] MEDS: CLONIDINE HCL 0.1 MG TABLET PO SCH (22:02)
[2019-11-30] MEDS: AMLODIPINE BESYLATE 10 MG TABLET PO SCH (22:03)
[2019-11-30] MEDS: GABAPENTIN 300 MG CAPSULE PO SCH (22:03)
[2019-11-30] MEDS: ATORVASTATIN CALCIUM 20 MG TABLET PO SCH (22:03)
[2019-11-30 23:09] LABS: HEMATOCRIT 25.1 % (36.0-47.0); MEAN CORPUSCULAR HEMOGLOBIN 31.7 pg (27.0-33.4); MEAN CORPUSCULAR HGB CONC 34.7 g/dL (32.0-36.0); PLATELET COUNT 338 10^3/uL (150-450); RED BLOOD COUNT 2.74 10^6/uL (3.72-5.28); RED CELL DISTRIBUTION WIDTH 19.9 % (11.5-14.0); WHITE BLOOD COUNT 10.2 10^3/uL (4.0-10.5)
[2019-11-30 23:14] LABS: HEMOGLOBIN 8.7 g/dL (12.0-15.5); MEAN CORPUSCULAR VOLUME 92 fl (80-97)
[2019-11-30 23:39] LABS: INTERNATIONAL RATION (INR) 1.07; PROTHROMBIN TIME 13.9 SEC (11.4-15.4)
[2019-11-30 23:40] LABS: PARTIAL THROMBOPLASTIN TIME 27.4 SEC (23.5-35.8)
[2019-11-30 23:47] LABS: ANION GAP 11 (5-19); BLOOD UREA NITROGEN 20 mg/dL (7-20); CARBON DIOXIDE 26 mmol/L (22-30); CHLORIDE 97 mmol/L (98-107); GLUCOSE 190 mg/dL (75-110); POTASSIUM 4.1 mmol/L (3.6-5.0)
[2019-12-01 05:21] LABS: ABSOLUTE BASOPHILS # (AUTO) 0.1 10^3/uL (0.0-0.2); ABSOLUTE EOSINOPHILS # (AUTO) 0.3 10^3/uL (0.0-0.6); ABSOLUTE LYMPHOCYTES (AUTO) 1.6 10^3/uL (0.5-4.7); ABSOLUTE MONOCYTES (AUTO) 0.9 10^3/uL (0.1-1.4); ABSOLUTE NEUT (AUTO) 5.5 10^3/uL (1.7-8.2); EOSINOPHILS % (AUTO) 3.2 % (0-6); HEMATOCRIT 24.3 % (36.0-47.0); HEMOGLOBIN 8.3 g/dL (12.0-15.5); LYMPHOCYTES % (AUTO) 18.5 % (13-45); MEAN CORPUSCULAR HEMOGLOBIN 31.8 pg (27.0-33.4); MEAN CORPUSCULAR HGB CONC 34.3 g/dL (32.0-36.0); MEAN CORPUSCULAR VOLUME 93 fl (80-97); MONOCYTES % (AUTO) 11.3 % (3-13); PLATELET COUNT 341 10^3/uL (150-450); RED BLOOD COUNT 2.62 10^6/uL (3.72-5.28); RED CELL DISTRIBUTION WIDTH 20.1 % (11.5-14.0); TOTAL CELLS COUNTED % (AUTO) 100 %; WHITE BLOOD COUNT 8.4 10^3/uL (4.0-10.5)
[2019-12-01 05:41] LABS: ANION GAP 7 (5-19); BLOOD UREA NITROGEN 23 mg/dL (7-20); CALCIUM 8.1 mg/dL (8.4-10.2); CARBON DIOXIDE 29 mmol/L (22-30); CHLORIDE 99 mmol/L (98-107); GLUCOSE 189 mg/dL (75-110); POTASSIUM 4.3 mmol/L (3.6-5.0)
[2019-12-01] MEDS: CLONIDINE HCL 0.1 MG TABLET PO SCH ×3 (06:15→22:56)
[2019-12-01] MEDS: GABAPENTIN 300 MG CAPSULE PO SCH ×3 (06:16→22:57)
--- NOTE | 2019-12-01 08:40 | EKG REPORT ---
SEVERITY:- ABNORMAL ECG - SINUS RHYTHM PROBABLE LEFT ATRIAL ABNORMALITY NONSPECIFIC T ABNORMALITIES, LATERAL LEADS BORDERLINE PROLONGED QT INTERVAL : Confirmed by: Deng Holt 01-Dec-2019 08:39:41
--- NOTE | 2019-12-01 08:40 | EKG REPORT ---
SEVERITY:- ABNORMAL ECG - SINUS RHYTHM LEFT ATRIAL ABNORMALITY PROBABLE LEFT VENTRICULAR HYPERTROPHY : Confirmed by: Deng Holt 01-Dec-2019 08:39:48
[2019-12-01] MEDS: INSULIN LISPRO 100 UNIT/ML 3 ML VIAL SUBCUT SCH ×4 (08:44→22:58)
[2019-12-01] MEDS: PANTOPRAZOLE SODIUM 40 MG TABLET.DR PO SCH ×2 (09:09→17:13)
[2019-12-01] MEDS ORDERED: EPINEPHRINE INJ 1 MG/10 ML DISP.SYRIN ONE (11:39)
[2019-12-01] MEDS ORDERED: PROPOFOL INJ 200 MG/20 ML VIAL IV ONE (11:55)
--- NOTE | 2019-12-01 12:51 | PDOC PROGRESS REPORT ---
Subjective Progress Note for:: 12/01/19 Reason For Visit: END STAGE RENAL DISEASE ON HEMODIALYSIS 12/01/2019 Admitted for acute GI bleed, anemia, falling. Patient has end-stage renal disease on hemodialysis. Physical Exam Vital Signs: Temp Pulse Resp BP Pulse Ox 97.8 F 60 18 102/44 L 100 12/01/19 07:03 12/01/19 07:03 12/01/19 07:03 12/01/19 07:03 12/01/19 07:03 Intake & Output 11/30/19 12/01/19 12/02/19 06:59 06:59 06:59 Intake Total 890 Balance 890 Weight 63.8 kg General appearance: PRESENT: no acute distress - Patient has no complaints Respiratory exam: PRESENT: clear to auscultation carlos. ABSENT: rales, rhonchi, wheezes Cardiovascular exam: PRESENT: RRR. ABSENT: diastolic murmur, rubs, systolic murmur GI/Abdominal exam: PRESENT: hypoactive bowel sounds Neurological exam: PRESENT: alert, awake, oriented to person, oriented to place, oriented to time, oriented to situation, CN II-XII grossly intact. ABSENT: motor sensory deficit Psychiatric exam: PRESENT: appropriate affect, normal mood. ABSENT: homicidal ideation, suicidal ideation Results Laboratory Results: 12/01/19 04:58 12/01/19 04:58 11/30/19 11/30/19 11/30/19 11:40 22:30 23:23 WBC 10.2 RBC 2.74 L Hgb 8.7 L D Hct 25.1 L MCV 92 D MCH 31.7 MCHC 34.7 RDW 19.9 H Plt Count 338 Seg Neutrophils % Sodium 133.9 L Potassium 4.1 Chloride 97 L Carbon Dioxide 26 Anion Gap 11 BUN 20 Creatinine 3.16 H Est GFR ( Amer) 18 L Glucose 190 H Calcium 8.0 L Magnesium Blood Type O POSITIVE Antibody Screen NEGATIVE 12/01/19 12/01/19 04:58 04:58 WBC 8.4 RBC 2.62 L Hgb 8.3 L Hct 24.3 L MCV 93 MCH 31.8 MCHC 34.3 RDW 20.1 H Plt Count 341 Seg Neutrophils % 66.0 Sodium 135.1 L Potassium 4.3 Chloride 99 Carbon Dioxide 29 Anion Gap 7 BUN 23 H Creatinine 3.43 H Est GFR ( Amer) 17 L Glucose 189 H Calcium 8.1 L Magnesium 2.1 Blood Type Antibody Screen Impressions: Chest X-Ray 11/30/19 15:26 IMPRESSION: NO ACUTE RADIOGRAPHIC FINDING IN THE CHEST. Assessment and Plan - Diagnosis (1) Anemia Qualifiers: Anemia type: unspecified type Qualified Code(s): D64.9 - Anemia, unspecified Is this a current diagnosis for this admission?: Yes (2) End-stage renal disease on hemodialysis Is this a current diagnosis for this admission?: Yes (3) GI bleed Qualifiers: GI bleed type/associated pathology: unspecified gastrointestinal hemorrhage type Qualified Code(s): K92.2 - Gastrointestinal hemorrhage, unspecified Is this a current diagnosis for this admission?: Yes (4) Diabetes mellitus type 2 in nonobese Is this a current diagnosis for this admission?: Yes (5) Hypertension Qualifiers: Is this a current diagnosis for this admission?: Yes - Plan Summary Summary: Patient will be admitted to the hospital tonight kept n.p.o. after midnight. Will have a rapid COVID-19 drawn so that we will know the results quickly. Will probably need an upper and lower endoscopy by GI. She will be transfused with packed red cells. Serial labs will be checked 12/01/2019 Pulse of 62, blood pressure 102/66, oxygen saturation 95% on room air. Globin on admission 5.1 it is now stabilized at 8.3, platelets 341,000. On 11/01/2019 her creatinine was 5.92 on 11/13/2019 her creatinine was 2.08. Today creatinine is 3.43 COVID negative Gastroenterology has seen the patient will proceed with upper and lower endoscopy Patient appears medically stable. I have discussed this with nursing - Time Time Spent with patient: 25-34 minutes
--- NOTE | 2019-12-01 13:47 | Operative Report ---
Operative Report DATE OF SURGERY: 12/01/19 Operative Report: The risk, benefits and alternatives of the procedure including the risk of bleeding, perforation requiring surgery have been explained to the patient in detail and informed consent has been obtained. Patient is placed in a left, lateral decubital position. Timeout was called. Propofol medication is administered. Rectal examination is done which did not reveal any masses, tears or fissures. An Olympus videoscope was introduced into the patient's rectum. Scope was then carefully advanced all the way to the cecum. Cecum was identified by the usual anatomical landmarks including the ileocecal valve as well as the appendiceal office. Photodocumentation is obtained. Scope was then sequentially pulled back via the various segments of the colon including the ascending colon, hepatic flexure, transverse colon, splenic flexure, descending colon and finally into the rectosigmoid portions of the colon. Retroflexion maneuver is performed. PREOPERATIVE DIAGNOSIS: GI bleeding. Personal history of polyp. Dysphagia POSTOPERATIVE DIAGNOSIS: Gastritis status post biopsy. Mild duodenitis. Colon polyp was removed via snare polypectomy and retrieved at hepatic flexure. Diverticulosis without any evidence of diverticulitis. Internal hemorrhoids. No active bleeding noted OPERATION: Colonoscopy with snare polypectomy. EGD with biopsy SURGEON: JIHAN CORTEZ ANESTHESIA: LMAC TISSUE REMOVED OR ALTERED: As noted above. COMPLICATIONS: None. ESTIMATED BLOOD LOSS: None. INTRAOPERATIVE FINDINGS: As noted above. PROCEDURE: Patient tolerated the procedure well. No immediate postprocedure complications are noted. Patient is sent back to her room in good condition. Wait on biopsies. Continue to monitor. No active bleeding is noted. Outpatient follow-up likely okay.
[2019-12-01] MEDS ORDERED: EPOETIN ALFA-EPBX 20,000 UNIT in SYRINGE, DISPOSABLE, 1 EACH IV PRN (14:29)
[2019-12-01] MEDS ORDERED: HEPARIN SOD (PORCINE) 1,000 UNIT/ML 10 ML VIAL IV PRN (16:15)
--- NOTE | 2019-12-01 22:09 | PDOC CONSULTATION ---
Consultation Consult Date: 12/01/19 Provider Consulted: DAVID MOSES Consult reason:: ESRD requiring HD History of Present Illness Admission Date/PCP: 11/30/19 13:48 IRENE SAMANIEGO History of Present Illness: SAMIA HEALY is a 59 year old lady known to me with history of end-stage renal disease on maintenance hemodialysis, hypertension, diabetes mellitus type 2 who was admitted yesterday for GI bleed. Patient stated that she started to have rectal bleeding since about 4 days ago, Friday afternoon which continued throughout the weekend. On Friday it became light. That she was able to go to her appointment for her AV fistula with Dr. Sanders on Friday. Yesterday she went to her regular schedule for dialysis at [facility]. She was able to help part of her treatment but about an hour and 6 minutes left in her treatment she started having loose bloody stools. Dialysis was then terminated and patient was brought into the emergency room via EMS. Patient was complaining of feeling tired. She stated that last Friday she also has episodes of vomiting and abdominal pain. On admission the patient's hemoglobin was 5.1 from a previous of 9.2 on November 12. She was seen in consult ation by technology solutions architect, Dr. Wright yesterday. Today she underwent EGD and colonoscopy which showed gastritis, duodenitis, diverticulosis without diverticulitis and internal hemorrhoids. Yesterday patient was transfused 2 units of packed RBC. Today the patient said her stool is not as bloody anymore and almost looking normal. She denies any fever, chills nor cough. I am currently seeing the patient during dialysis this afternoon post endoscopy. She is awake and looking fairly well tolerating dialysis. Currently she really does not have much symptoms anymore. Past Medical History Cardiac Medical History: Reports: Hypertension-primary Pulmonary Medical History: Reports: Pneumonia Endocrine Medical History: Reports: Diabetes Mellitus Type 2 Renal/ Medical History: Reports: End Stage Renal Disease Psychiatric Medical History: Denies: Depression Hematology Medical History: Reports Anemia of Chronic Kidney Disease Past Surgical History Past Surgical History: Reports: Appendectomy, Section, Cholecystectomy, Dialysis Access Surgery AVF - Left upper arm placed with Vidant, Orthopedic Surgery - Bilateral foot surgery, Tubal Ligation, Other - Tunneled central venou s catheter placement for dialysis Social History Information Source: Patient, [facility] Records Lives with: Family Smoking Status: Former Smoker Electronic Cigarette use?: No Frequency of Alcohol Use: None Hx Recreational Drug Use: No Drugs: None Hx Prescription Drug Abuse: No - Advance Directive Resuscitation Status: Full Code Family History Family History: Reviewed & Not Pertinent Parental Family History Reviewed: Yes Children Family History Reviewed: Yes Sibling(s) Family History Reviewed.: Yes Medication/Allergy Home Medications: Atorvastatin Calcium [Lipitor 20 mg Tablet] 20 mg PO QHS 09/09/19 Gabapentin [Neurontin 100 mg Capsule] 300 mg PO Q8 09/09/19 Ondansetron HCl [Zofran 8 mg Tablet] 8 mg PO Q8HP PRN 11/02/19 Amlodipine Besylate [Norvasc 5 mg Tablet] 10 mg PO QHS 30 Days 11/10/19 Aspirin [Aspirin 81 mg Chewable Tablet] 81 mg PO DAILY 11/30/19 Clonidine HCl 0.3 mg PO Q8 11/30/19 Insulin Aspart [Novolog Flexpen] 5 units SUBCUT TID 11/30/19 Insulin Degludec [Tresiba Flextouch U-100] 14 unit SQ QHS 11/30/19 Meclizine HCl [Antivert 12.5 mg Tablet] 12.5 mg PO ASDIR PRN 11/30/19 Sucroferric Oxyhydroxide [Velphoro] 500 mg PO AC 11/30/19 Allergies/Adverse Reactions: Penicillins Allergy (Severe, Verified 11/01/19 17:04) rash ciprofloxacin [From Cipro] Allergy (Verified 11/01/19 17:04) shellfish derived Allergy (Verified 11/01/19 17:04) Swelling of tongue oxycodone [From Percocet] Adverse Reaction (Verified 11/01/19 17:04) Review of Systems All systems: reviewed and no additional remarkable complaints except as stated Review of Systems: Constitutional: ABSENT: chills,fever(s), headache(s), weight gain, weight loss; admits fatigue Eyes: ABSENT: visual disturbances Ears: ABSENT: hearing changes Cardiovascular: ABSENT: chest pain, dyspnea on exertion, edema, orthropnea, palpitations Respiratory: ABSENT: cough, dyspnea, hemoptysis Gastrointestinal: ABSENT: constipation, hematemesis, nausea; reports hematochezia, abdominal pain, diarrhea and vomiting Genitourinary: ABSENT: dysuria, hematuria Musculoskeletal: ABSENT: joint swelling Integumentary: ABSENT: rash, wounds Neurological: ABSENT: abnormal gait, abnormal speech, confusion, dizziness, foc al weakness, numbness, syncope Psychiatric: ABSENT: anxiety, depression Endocrine: ABSENT: cold intolerance, heat intolerance, polydipsia, polyuria Hematologic/Lymphatic: ABSENT: easy bleeding, easy bruising, lymphadenopathy Physical Exam Vital Signs: Temp Pulse Resp BP Pulse Ox 98.0 F 68 16 94/50 L 99 12/01/19 12:46 12/01/19 13:01 12/01/19 13:01 12/01/19 13:01 12/01/19 13:01 Intake & Output 11/30/19 12/01/19 12/02/19 06:59 06:59 06:59 Intake Total 890 75 Output Total 0 Balance 890 75 Weight 63.8 kg Vitals during dialysis: Blood pressure 126/56, heart rate of 63, blood flow rate of 300 mL/min and dialysate flow rate of 800 mL/min. Exam: General appearance: No acute distress, cooperative, well-developed, well- nourished Head exam: PRESENT: atraumatic, normocephalic Eye exam: PRESENT: Conjunctiva pale, EOMI, PERRLA. ABSENT: conjunctival injection, scleral icterus Mouth exam: PRESENT: moist, neck supple, tongue midline Neck exam: PRESENT: full ROM. ABSENT: carotid bruit, JVD, lymphadenopathy, thyromegaly Respiratory exam: PRESENT: clear to auscultation bilaterally. ABSENT: rales, rhonchi, stridor, wheezes Cardiovascular exam: PRESENT: RRR, +S1, +S2. ABSENT: systolic murmur Pulses: PRESENT: normal radial pulses, normal dorsalis pedis pulses GI/Abdominal exam: PRESENT: normal bowel sounds, soft. ABSENT: guarding, mass, tenderness Rectal exam: Deferred Extremities exam: PRESENT: full ROM. ABSENT: calf tenderness, pedal edema Musculoskeletal: PRESENT: full ROM. ABSENT: deformity Neurological exam: PRESENT: alert, Awake, Oriented to person, Oriented to place, Oriented to time, reflexes normal, CN II-XII grossly intact. ABSENT: motor sensory deficit Psychiatric exam: PRESENT: appropriate affect, normal mood. ABSENT: homicidal ideation, suicidal ideation Skin exam: PRESENT: intact, dry, warm. ABSENT: rash Results Laboratory Results: 12/01/19 04:58 12/01/19 04:58 11/30/19 11/30/19 11/30/19 11:40 22:30 23:23 WBC 10.2 RBC 2.74 L Hgb 8.7 L D Hct 25.1 L MCV 92 D MCH 31.7 MCHC 34.7 RDW 19.9 H Plt Count 338 Seg Neutrophils % Sodium 133.9 L Potassium 4.1 Chloride 97 L Carbon Dioxide 26 Anion Gap 11 BUN 20 Creatinine 3.16 H Est GFR ( Amer) 18 L Glucose 190 H Calcium 8.0 L Magnesium Blood Type O POSITIVE Antibody Screen NEGATIVE 12/01/19 12/01/19 04:58 04:58 WBC 8.4 RBC 2.62 L Hgb 8.3 L Hct 24.3 L MCV 93 MCH 31.8 MCHC 34.3 RDW 20.1 H Plt Count 341 Seg Neutrophils % 66.0 Sodium 135.1 L Potassium 4.3 Chloride 99 Carbon Dioxide 29 Anion Gap 7 BUN 23 H Creatinine 3.43 H Est GFR ( Amer) 17 L Glucose 189 H Calcium 8.1 L Magnesium 2.1 Blood Type Antibody Screen Impressions: Chest X-Ray 11/30/19 15:26 IMPRESSION: NO ACUTE RADIOGRAPHIC FINDING IN THE CHEST. Assessment & Plan - Diagnosis (1) End-stage renal disease on hemodialysis Is this a current diagnosis for this admission?: Yes Plan: We will do dialysis today for 2.5 hours, using the patient's left IJ PermCath, with 2 potassium bath, blood flow rate of 300-350 mL per minute, dialysate flow rate of 800 mL per minute, ultrafiltration 1.5 to 2 L as tolerated, no heparin and Procrit with 20,000 units during dialysis intravenously. Patient is currently tolerating dialysis without any problems or complications. (2) GI bleed Qualifiers: GI bleed type/associated pathology: unspecified gastrointestinal hemorrhage type Qualified Code(s): K92.2 - Gastrointestinal hemorrhage, unspecified Is this a current diagnosis for this admission?: Yes Plan: Post EGD and colonoscopy today per Dr. Wright. As above procedure shows gastritis, duodenitis, diverticulosis and internal hemorrhoids. (3) Anemia Qualifiers: Anemia type: unspecified type Qualified Code(s): D64.9 - Anemia, unspecified Is this a current diagnosis for this admission?: Yes Plan: Acute drop in hemoglobin secondary to acute GI bleed. Patient also has underlying anemia of chronic kidney disease. Currently it appears that bleeding has subsided. Patient was transfused 2 units of packed RBC yesterday. I will also give the patient Retacrit during dialysis treatment as stated above. (4) Hypertension Qualifiers: Is this a current diagnosis for this admission?: Yes Plan: Currently controlled. (5) Diabetes mellitus type 2 in nonobese Is this a current diagnosis for this admission?: Yes - Notes Notes: Thank you for this consultation. We will continue hemodialysis support while here in the hospital. - Time Time Spent: 50 to 70 Minutes
[2019-12-01] MEDS: ATORVASTATIN CALCIUM 20 MG TABLET PO SCH (22:57)
[2019-12-01] MEDS: AMLODIPINE BESYLATE 10 MG TABLET PO SCH (22:57)
--- NOTE | 2019-12-02 00:10 | CDI QUERY ---
CDI Query CDI Review: Dear Provider: To better reflect your patients severity of illness, morbidity, and resource utilization Please specify and document in the Progress Notes and Discharge Summary if you are monitoring / treating / evaluating any of the following conditions: Query Clinical indicators Acute blood loss anemia Acute and chronic blood loss anemia Chronic blood loss anemia Anemia of chronic disease Unable to determine Other Per H&P: (1) Anemia (2) ESRD on dialysis (3) GI bleed Labs: H/H 5.1 / 15.5 Per Nephrology Note: Acute drop in hemoglobin secondary to acute GI bleed. Patient also has underlying anemia of chronic kidney disease. Currently it appears that bleeding has subsided. Patient was transfused 2 units of packed RBC yesterday. I will also give the patient Retacrit during dialysis treatment as stated above. The terms probable, suspected, likely, possible or still to be ruled out may be used if you are unable to determine the exact nature of a condition. Thank you for your consideration, Clinical Documentation Physician Advisors ROMEO Marin RN, BSN RN [email or web address] Office [phone] Office [phone]
[2019-12-02] MEDS: GABAPENTIN 300 MG CAPSULE PO SCH (06:34)
[2019-12-02] MEDS: CLONIDINE HCL 0.1 MG TABLET PO SCH (06:34)
[2019-12-02 06:45] LABS: ABSOLUTE BASOPHILS # (AUTO) 0.1 10^3/uL (0.0-0.2); ABSOLUTE EOSINOPHILS # (AUTO) 0.2 10^3/uL (0.0-0.6); ABSOLUTE LYMPHOCYTES (AUTO) 1.2 10^3/uL (0.5-4.7); ABSOLUTE MONOCYTES (AUTO) 0.9 10^3/uL (0.1-1.4); ABSOLUTE NEUT (AUTO) 5.1 10^3/uL (1.7-8.2); BASOPHILS % (AUTO) 1.2 % (0-2); EOSINOPHILS % (AUTO) 3.2 % (0-6); HEMATOCRIT 25.8 % (36.0-47.0); HEMOGLOBIN 8.9 g/dL (12.0-15.5); LYMPHOCYTES % (AUTO) 16.2 % (13-45); MEAN CORPUSCULAR HEMOGLOBIN 32.3 pg (27.0-33.4); MEAN CORPUSCULAR HGB CONC 34.4 g/dL (32.0-36.0); MEAN CORPUSCULAR VOLUME 94 fl (80-97); MONOCYTES % (AUTO) 12.2 % (3-13); PLATELET COUNT 324 10^3/uL (150-450); RED BLOOD COUNT 2.75 10^6/uL (3.72-5.28); RED CELL DISTRIBUTION WIDTH 20.6 % (11.5-14.0); SEGMENTED NEUTROPHILS % (AUTO) 67.2 % (42-78); TOTAL CELLS COUNTED % (AUTO) 100 %; WHITE BLOOD COUNT 7.5 10^3/uL (4.0-10.5)
[2019-12-02] MEDS: PANTOPRAZOLE SODIUM 40 MG TABLET.DR PO SCH (09:38)
[2019-12-02] MEDS: INSULIN LISPRO 100 UNIT/ML 3 ML VIAL SUBCUT SCH (09:38)
[2019-12-02 12:11] VITALS: BP 156/57
--- NOTE | 2019-12-02 17:12 | PDOC DISCHARGE SUMMARY ---
Impression - Admit/DC Date/PCP Admission Date/Primary Care Provider: 11/30/19 13:48 IRENE SAMANIEGO Discharge Date: 12/02/19 - Discharge Diagnosis (1) End-stage renal disease on hemodialysis Is this a current diagnosis for this admission?: Yes (2) GI bleed Is this a current diagnosis for this admission?: Yes (3) Diabetes mellitus type 2 in nonobese Is this a current diagnosis for this admission?: Yes (4) Hypertension Is this a current diagnosis for this admission?: Yes (5) Chronic blood loss anemia Is this a current diagnosis for this admission?: Yes - Assessment Summary: Patient will be admitted to the hospital tonight kept n.p.o. after midnight. Will have a rapid COVID-19 drawn so that we will know the results quickly. Will probably need an upper and lower endoscopy by GI. She will be transfused with packed red cells. Serial labs will be checked 12/01/2019 Pulse of 62, blood pressure 102/66, oxygen saturation 95% on room air. HemoGlobin on admission 5.1 it is now stabilized at 8.3, following 2 units of packed red cells, platelets 341,000. On 11/01/2019 her creatinine was 5.92 on 11/13/2019 her creatinine was 2.08. Today creatinine is 3.43 COVID negative Gastroenterology has seen the patient will proceed with upper and lower endoscopy Patient appears medically stable. I have discussed this with nursing 12/02/2019 Yesterday on 12/01/2019 patient underwent a colonoscopy with snare polypectomy EGD with biopsy. Patient was found to have gastritis status post biopsy mild duodenitis, and a colon polyp was removed via snare polypectomy and retrieved at the hepatic flexure. Patient also had diverticulosis but no evidence of diverticulitis. Patient also had internal hemorrhoids but no active bleeding was noted. Yesterday patient was also seen by nephrology while in dialysis and appeared to be stable from her renal disease This morning patient vital signs were stable, temperature 97.7 pulse was 60 blood pressure 132/49 O2 sat 98% on room air Morning her hemoglobin had actually gone up to 8.9 white count was still normal 7.5 Chemistry panel revealed the BUN of 23 creatinine 3.43. Patient is on hemodialysis. Blood sugars slightly high between 150 and 250 Patient was asking to go home and appeared to be hemodynamically stable Discharge patient home on Carafate 1 g before meals and at bedtime for the next 4 weeks Protonix 40 mg twice daily for the next 4 weeks She is to follow-up with Dr. Balbina Samaniego and Dr. Wright - Additional Information Resuscitation Status: Full Code Discharge Diet: As Tolerated Discharge Activity: Balance Activity w/Rest, No Driving, Energy Conservation, No Lifting Over 10 Pounds, No Lifting/Push/Pulling Referrals: DAVID MOSES MD [ACTIVE STAFF] - (PATIENT IS DIALYSIS WO SHE IS SEEN THERE) IRENE SAMANIEGO MD [Primary Care Provider] - 12/08/19 5:00 pm JIHAN WRIGHT MD [ACTIVE STAFF] - 12/08/19 10:30 am Prescriptions: Sucralfate [Carafate 1 gm Tablet] 1 gm PO ACHS #120 tablet Pantoprazole Sodium [Protonix [address] Tablet] 40 mg PO BID 30 Days #60 tablet.dr Home Medications: Atorvastatin Calcium [Lipitor 20 mg Tablet] 20 mg PO QHS 09/09/19 Gabapentin [Neurontin 100 mg Capsule] 300 mg PO Q8 09/09/19 Ondansetron HCl [Zofran 8 mg Tablet] 8 mg PO Q8HP PRN 11/02/19 Amlodipine Besylate [Norvasc 5 mg Tablet] 10 mg PO QHS 30 Days 11/10/19 Aspirin [Aspirin 81 mg Chewable Tablet] 81 mg PO DAILY 11/30/19 Clonidine HCl 0.3 mg PO Q8 11/30/19 Insulin Aspart [Novolog Flexpen] 5 units SUBCUT TID 11/30/19 Insulin Degludec [Tresiba Flextouch U-100] 14 unit SQ QHS 11/30/19 Meclizine HCl [Antivert 12.5 mg Tablet] 12.5 mg PO ASDIR PRN 11/30/19 Sucroferric Oxyhydroxide [Velphoro] 500 mg PO AC 11/30/19 Acetaminophen [Tylenol 325 mg Tablet] 650 mg PO Q4HP PRN tablet 12/02/19 Mag Hydrox/Al Hydrox/Simeth [Maalox Plus Susp 30 Udcup] 30 ml PO Q6HP PRN udc 12/02/19 Magnesium Hydroxide [Milk of Magnesia 30 ml Udcup] 30 ml PO HSP PRN udc 12/02/19 Pantoprazole Sodium [Protonix [address] Tablet] 40 mg PO BID 30 Days #60 tablet. 12/02/19 Sucralfate [Carafate 1 gm Tablet] 1 gm PO ACHS #120 tablet 12/02/19 History of Present Illiness History of Present Illness: SAMIA HEALY is a 59 year old female who was admitted from the emergency room with rectal bleeding for the last 2 to 3 days. Patient has end-stage renal disease on hemodialysis.. States that for the last 2 to 3 days she is felt a little "dizzy" and has reported falling secondary to being dizzy. Tells me that she has been taking aspirin for her arthritis.. States that the blood that she has been passing per rectum has been dark, but does not use the term black or tarry. Since last hemoglobin on November 13, 2019 was 9.2 and today it is down to 5.1. Since baseline appears to be around 10 She is now to be admitted for IV Protonix and further GI work-up.. She will be kept n.p.o. after midnight.. Gastroenterology, Dr. Wright, has seen the patient will follow the patient with us.. Physical Exam Vital Signs: Temp Pulse Resp BP Pulse Ox 97.7 F 60 18 156/57 H 98 12/02/19 12:10 12/02/19 12:10 12/02/19 12:10 12/02/19 12:10 12/02/19 12:10 Intake & Output 12/01/19 12/02/19 12/03/19 06:59 06:59 06:59 Intake Total 890 315 Output Total 1800 Balance 890 -1485 Weight 63.8 kg 63.4 kg Results Laboratory Results: WBC 7.5 10^3/uL (4.0-10.5) 12/02/19 06:31 RBC 2.75 10^6/uL (3.72-5.28) L 12/02/19 06:31 Hgb 8.9 g/dL (12.0-15.5) L 12/02/19 06:31 Hct 25.8 % (36.0-47.0) L 12/02/19 06:31 MCV 94 fl (80-97) 12/02/19 06:31 MCH 32.3 pg (27.0-33.4) 12/02/19 06:31 MCHC 34.4 g/dL (32.0-36.0) 12/02/19 06:31 RDW 20.6 % (11.5-14.0) H 12/02/19 06:31 Plt Count 324 10^3/uL (150-450) 12/02/19 06:31 Lymph % (Auto) 16.2 % (13-45) 12/02/19 06:31 [place] % (Auto) 12.2 % (3-13) 12/02/19 06:31 Eos % (Auto) 3.2 % (0-6) 12/02/19 06:31 Baso % (Auto) 1.2 % (0-2) 12/02/19 06:31 Absolute Neuts (auto) 5.1 10^3/uL (1.7-8.2) 12/02/19 06:31 Absolute Lymphs (auto) 1.2 10^3/uL (0.5-4.7) 12/02/19 06:31 Absolute Monos (auto) 0.9 10^3/uL (0.1-1.4) 12/02/19 06:31 Absolute Eos (auto) 0.2 10^3/uL (0.0-0.6) 12/02/19 06:31 Absolute Basos (auto) 0.1 10^3/uL (0.0-0.2) 12/02/19 06:31 Seg Neutrophils % 67.2 % (42-78) 12/02/19 06:31 PT 13.9 SEC (11.4-15.4) 11/30/19 23:23 INR 1.07 11/30/19 23:23 APTT 27.4 SEC (23.5-35.8) 11/30/19 23:23 Sodium 135.1 mmol/L (137-145) L 12/01/19 04:58 Potassium 4.3 mmol/L (3.6-5.0) 12/01/19 04:58 Chloride 99 mmol/L (98-107) 12/01/19 04:58 Carbon Dioxide 29 mmol/L (22-30) 12/01/19 04:58 Anion Gap 7 (5-19) 12/01/19 04:58 BUN 23 mg/dL (7-20) H 12/01/19 04:58 Creatinine 3.43 mg/dL (0.52-1.25) H 12/01/19 04:58 Est GFR ( Amer) 17 (>60) L 12/01/19 04:58 Est GFR (MDRD) Non-Af 14 (>60) L 12/01/19 04:58 Glucose 189 mg/dL (75-110) H 12/01/19 04:58 POC Glucose 305 mg/dL (70-110) H 12/02/19 10:53 Calcium 8.1 mg/dL (8.4-10.2) L 12/01/19 04:58 Magnesium 2.1 mg/dL (1.6-2.3) 12/01/19 04:58 Total Bilirubin 0.4 mg/dL (0.2-1.3) 11/30/19 11:40 Direct Bilirubin 0.1 mg/dL (0.0-0.4) 11/30/19 11:40 Neonat Total Bilirubin Not Reportable 11/30/19 11:40 Neonat Direct Bilirubin Not Reportable 11/30/19 11:40 Neonat Indirect Bili Not Reportable 11/30/19 11:40 AST 23 U/L (14-36) 11/30/19 11:40 ALT 17 U/L (<35) 11/30/19 11:40 Alkaline Phosphatase 92 U/L (38-126) 11/30/19 11:40 Total Protein 6.4 g/dL (6.3-8.2) 11/30/19 11:40 Albumin 3.3 g/dL (3.5-5.0) L 11/30/19 11:40 POC Stool Occult Blood POSITIVE (NEGATIVE) 11/30/19 11:55 COVID-19 Source Cancelled 11/30/19 16:50 COVID-19 ([facility]) Cancelled 11/30/19 16:50 SARS-CoV-2 (PCR) NEGATIVE (NEGATIVE) 11/30/19 16:50 Blood Type O POSITIVE 11/30/19 11:40 Blood Type Confirm O POSITIVE 11/30/19 13:11 Antibody Screen NEGATIVE 11/30/19 11:40 Crossmatch See Detail 11/30/19 11:40 Impressions: Chest X-Ray 11/30/19 15:26 IMPRESSION: NO ACUTE RADIOGRAPHIC FINDING IN THE CHEST. Stroke Is this a Stroke Patient?: No Acute Heart Failure - Is this a Heart Failure Patient?: No
== END 2019-12-02 12:30 | disposition home or self-care (01) | DRG 377 ==
LOC: ER 11:35 → EH 13:48 → 3W 17:06
PROVIDERS: ADMIT Hospitalist; ATTEND Physician Assistant
PROC: 30233N1 Transfusion of Nonautologous Red Blood Cells into Peripheral Vein, Percutaneous Approach (ICD-10-PCS; 2019-11-30)
PROC: 5A1D70Z Performance of Urinary Filtration, Intermittent, Less than 6 Hours Per Day (ICD-10-PCS; 2019-12-01)
PROC: 0DBL8ZZ Excision of Transverse Colon, Via Natural or Artificial Opening Endoscopic (ICD-10-PCS; principal; 2019-12-01 12:15)
PROC: 0DB68ZX Excision of Stomach, Via Natural or Artificial Opening Endoscopic, Diagnostic (ICD-10-PCS; 2019-12-01 12:15)
DX: K62.5 Hemorrhage of anus and rectum (principal); N18.6 End stage renal disease; I13.2 Hypertensive heart and chronic kidney disease with heart failure and with stage 5 chronic kidney disease, or end stage renal disease; E11.22 Type 2 diabetes mellitus with diabetic chronic kidney disease; K29.70 Gastritis, unspecified, without bleeding; K29.80 Duodenitis without bleeding; K63.5 Polyp of colon; K57.30 Diverticulosis of large intestine without perforation or abscess without bleeding; K64.8 Other hemorrhoids; I50.9 Heart failure, unspecified; D63.1 Anemia in chronic kidney disease; Z99.2 Dependence on renal dialysis; Z90.49 Acquired absence of other specified parts of digestive tract; Z87.891 Personal history of nicotine dependence; Z83.3 Family history of diabetes mellitus; Z82.49 Family history of ischemic heart disease and other diseases of the circulatory system; Z88.0 Allergy status to penicillin; Z88.1 Allergy status to other antibiotic agents; Z91.013 Allergy to seafood; Z88.6 Allergy status to analgesic agent; Z79.4 Long term (current) use of insulin; Z03.818 Encounter for observation for suspected exposure to other biological agents ruled out
CPT/HCPCS: 36415; 36430; 43239; 45385; 71045; 80048; 80053; 82270; 82962; 83735; 85025; 85610; 85730; 86850; 86900; 86901; 86920; 87635; 88305; 93005; 93010; 96365; 99291; C9113; J0171; J1644; J1815; J2704; J3490; P9016; Q5105

== ENCOUNTER 2019-12-28 06:32 | Inpatient (IN) | payer MEDICARE, MEDICAID ==
--- NOTE | 2019-12-28 07:00 | ER Document Report ---
ED General - General Chief Complaint: S/S of Possible Stroke Stated Complaint: SLURRED SPEECH,BLURRY VISION Time Seen by Provider: 12/28/19 06:51 Primary Care Provider: IRENE SAMANIEGO MD [Primary Care Provider] - Follow up as needed TRAVEL OUTSIDE OF THE [place] IN LAST 30 DAYS: No - HPI Similar symptoms previously: Yes Notes: 59 year old female with a history of ESRD, HTN, DM, Anemia, Prior TIAs here in the ER for left sided headache, transient slurred speech, and mild left lower leg weakness which she says started at 2am. The patient says she was woken up from sleep with her symptoms. The patient has had issues like this is past and she has been told she has been having TIAs. - Related Data Allergies/Adverse Reactions: Penicillins Allergy (Severe, Verified 12/28/19 07:09) rash ciprofloxacin [From Cipro] Allergy (Verified 12/28/19 07:09) shellfish derived Allergy (Verified 12/28/19 07:09) Swelling of tongue oxycodone [From Percocet] Adverse Reaction (Verified 12/28/19 07:09) Past Medical History - General Information source: Patient - Social History Smoking Status: Former Smoker Frequency of alcohol use: None Drug Abuse: None Family History: DM, Hypertension - Past Medical History Cardiac Medical History: Reports: Hx Hypertension Denies: Hx Atrial Fibrillation, Hx Congestive Heart Failure, Hx Coronary Artery Disease, Hx Heart Attack Pulmonary Medical History: Reports: Hx Pneumonia Denies: Hx Asthma, Hx Bronchitis, Hx COPD Neurological Medical History: Denies: Hx Cerebrovascular Accident, Hx Migraine, Hx Seizures Endocrine Medical History: Reports: Hx Diabetes Mellitus Type 2. Denies: Hx Diabetes Mellitus Type 1, Hx Hyperthyroidism, Hx Hypothyroidism Renal/ Medical History: Reports: Hx End Stage Renal Disease, Hx Hemodialysis. Denies: Hx Peritoneal Dialysis GI Medical History: Denies: Hx Cirrhosis, Hx Crohn's Disease, Hx David roesophageal Reflux Disease, Hx Hepatitis, Hx Ulcerative Colitis Musculoskeletal Medical History: Denies Hx Arthritis, Denies Hx Fibromyalgia Skin Medical History: Denies Hx Eczema, Denies Hx Psoriasis Psychiatric Medical History: Denies: Hx Depression Infectious Medical History: Denies: Hx Hepatitis Past Surgical History: Reports: Hx Appendectomy, Hx Section, Hx Cholecystectomy, Hx Orthopedic Surgery - Bilateral foot surgery, Hx Tubal Ligation, Hx Vascular Surgery - fistula upper arm (left) Done at [facility], Other - Tunneled central venous catheter placement for dialysis - Immunizations Hx Diphtheria, Pertussis, Tetanus Vaccination: No Hx Pneumococcal Vaccination: 07/21/16 Review of Systems - Review of Systems Constitutional: No symptoms reported EENT: No symptoms reported Cardiovascular: No symptoms reported Respiratory: No symptoms reported Gastrointestinal: No symptoms reported Genitourinary: No symptoms reported Female Genitourinary: No symptoms reported Musculoskeletal: No symptoms reported Skin: No symptoms reported Hematologic/Lymphatic: No symptoms reported Neurological/Psychological: Weakness - of left leg, Headaches, Speech impairment - slurrech speech -: Yes All other systems reviewed and negative Physical Exam - Vital signs Vitals: Temp Pulse Resp BP Pulse Ox 97.7 F 86 18 223/84 H 97 12/28/19 06:39 12/28/19 06:39 12/28/19 06:39 12/28/19 06:39 12/28/19 06:39 - Notes Notes: GENERAL: Well-appearing, well-nourished and in no acute distress. HEAD: Atraumatic, normocephalic. EYES: Pupils equal round and reactive to light, extraocular movements intact, sclera anicteric, conjunctiva are normal. ENT: External ears normal, nares patent, oropharynx clear without exudates. Moist mucous membranes. NECK: Normal range of motion, supple without lymphadenopathy or JVD. LUNGS: Breath sounds clear to auscultation bilaterally and equal. No wheezes rales or rhonchi. HEART: Regular rate and rhythm without murmurs, rubs or gallops. ABDOMEN: Soft, nontender, normoactive bowel sounds. No guarding, no rebound. No masses appreciated. EXTREMITIES: Normal range of motion, no pitting or edema. No clubbing or cyanosis. NEUROLOGICAL: Cranial nerves II through XII grossly intact. NIH stroke scale of 1 for transient slurred/garbled speech which comes and goes. Normal strength and sensation in all extremities. PSYCH: Normal mood, normal affect. SKIN: Warm, Dry, normal turgor, no rashes or lesions noted. Course - Re-evaluation Re-evalutation: 12/28/19 08:11 The patient came to the ER as a stroke code due to having some transient garbled speech and left lower leg weakness. Patient found to be very hypertensive here in the ER and to have a blood glucose above 500. Patient started on Insulin infusion and she was given several IV doses of blood pressure medications. Patient will need admission to step down for TIA rule out and for management of her hypertension and hyperglycemia. 12/28/19 09:42 Dr. Lerma of the Hospitalist team admitted the patient. Dr. Lerma requested that I consult Nephrology (Dr. Gutierres) since the patient will likely need dialysis today or tomorrow given she is due for it and she is rather hyperten sive. - Vital Signs Vital signs: Temp Pulse Resp BP Pulse Ox 97.8 F 80 19 143/79 H 100 12/28/19 08:01 12/28/19 09:00 12/28/19 09:01 12/28/19 09:01 12/28/19 09:01 - Laboratory Result Diagrams: 12/28/19 07:20 12/28/19 07:20 Laboratory results interpreted by me: 12/28/19 12/28/19 12/28/19 07:08 07:20 07:20 RBC 3.50 L Hgb 11.3 L Hct 34.5 L MCV 98 H D RDW 16.8 H Lymph % (Auto) 6.8 L Absolute Neuts (auto) 8.3 H Seg Neutrophils % 84.1 H Sodium 129.1 L Chloride 93 L BUN 34 H Creatinine 6.10 H Est GFR ( Amer) 9 L Est GFR (MDRD) Non-Af 7 L Glucose 632 H* POC Glucose > 550 H* Calcium 7.6 L Alkaline Phosphatase 161 H - Diagnostic Test Radiology reviewed: Image reviewed, Reports reviewed - EKG Interpretation by Me EKG shows normal: Sinus rhythm, [place], Intervals, QRS Complexes, ST-T Waves Rate: Normal Rhythm: NSR When compared to previous EKG there are: No significant change Additional EKG results interpreted by me: 12/28/19 07:07 [facility] Critical Care Note - Critical Care Note Total time excluding time spent on procedures (mins): 32 Discharge - Discharge Clinical Impression: Hyperglycemia Hypertension Qualifiers: Hypertension type: unspecified Qualified Code(s): I10 - Essential (primary) hypertension Condition: Fair Disposition: ADMITTED INPATIENT Admitting Provider: Florentin (Hospitalist) Unit Admitted: IMCU Referrals: IRENE SAMANIEGO MD [Primary Care Provider] - Follow up as needed
[2019-12-28] MEDS ORDERED: LABETALOL HCL INJ 20 MG/4 ML DISP.SYRIN IV ONE (07:01)
--- NOTE | 2019-12-28 07:08 | RADIOLOGY REPORT (SQ) ---
CT of the head: 12/28/2019 6:06 AM CDT HISTORY: 59-year-old patient with concern for stroke. COMPARISON: CT the head from 11/05/2019 TECHNIQUE: Multiple axial contiguous images were obtained through the head without intravenous contrast administered. This exam was performed according to our departmental dose-optimization program, which includes automated exposure control, adjustment of the mA and/or KV according to the patient's size and/or use of iterative reconstruction technique. FINDINGS: The ventricles are within normal limits for size. Both orbits appear unremarkable. The mastoid air cells appear clear. The visualized paranasal sinuses appear clear. The calvarium is intact. No extra-axial fluid collection is seen. The gallegos-white matter differentiation is within normal limits. No midline shift or mass effect is apparent. There are no findings to suggest acute intracranial hemorrhage. IMPRESSION: No acute intracranial hemorrhage is seen.
--- NOTE | 2019-12-28 07:10 | RADIOLOGY REPORT (SQ) ---
EXAM DESCRIPTION: X-ray single view chest. CLINICAL HISTORY: 59 years Female, stroke COMPARISON: 11/30/2019 and 11/13/2019 TECHNIQUE: Single portable x-ray view of the chest performed on 12/28/2019 at 6:55 AM FINDINGS: The lungs are well expanded. There is mild volume loss in the right lung base which may be due to a combination of pleural fluid, atelectasis, inflammatory changes and/or possibly aspiration. There is slight elevation of the left hemidiaphragm. There is no evidence of a pneumothorax. The cardiac silhouette is normal in size and configuration. The mediastinal contours are normal. No acute osseous abnormality is identified. No focal soft tissue abnormalities are seen. Again demonstrated are metallic vascular stents along the visualized proximal left upper extremity and left axillary region. Lines and tubes: None. IMPRESSION: 1. Volume loss in the right lung base which may be due to a combination of pleural fluid, atelectasis, aspiration or inflammatory changes. 2. Slight elevation of the left hemidiaphragm. 3. Vascular stents project over the proximal left upper extremity and left axillary region.
[2019-12-28 07:31] LABS: ABSOLUTE BASOPHILS # (AUTO) 0.1 10^3/uL (0.0-0.2); ABSOLUTE EOSINOPHILS # (AUTO) 0.1 10^3/uL (0.0-0.6); ABSOLUTE LYMPHOCYTES (AUTO) 0.7 10^3/uL (0.5-4.7); ABSOLUTE MONOCYTES (AUTO) 0.7 10^3/uL (0.1-1.4); ABSOLUTE NEUT (AUTO) 8.3 10^3/uL (1.7-8.2); EOSINOPHILS % (AUTO) 1.4 % (0-6); HEMATOCRIT 34.5 % (36.0-47.0); HEMOGLOBIN 11.3 g/dL (12.0-15.5); LYMPHOCYTES % (AUTO) 6.8 % (13-45); MEAN CORPUSCULAR HEMOGLOBIN 32.1 pg (27.0-33.4); MEAN CORPUSCULAR HGB CONC 32.7 g/dL (32.0-36.0); MONOCYTES % (AUTO) 6.7 % (3-13); PLATELET COUNT 301 10^3/uL (150-450); RED CELL DISTRIBUTION WIDTH 16.8 % (11.5-14.0); SEGMENTED NEUTROPHILS % (AUTO) 84.1 % (42-78); TOTAL CELLS COUNTED % (AUTO) 100 %; WHITE BLOOD COUNT 9.8 10^3/uL (4.0-10.5)
[2019-12-28 07:37] LABS: INTERNATIONAL RATION (INR) 1.09
[2019-12-28 07:40] LABS: PROTHROMBIN TIME 14.1 SEC (11.4-15.4)
[2019-12-28 07:41] LABS: PARTIAL THROMBOPLASTIN TIME 29.7 SEC (23.5-35.8)
[2019-12-28 07:42] LABS: MEAN CORPUSCULAR VOLUME 98 fl (80-97)
[2019-12-28 07:51] LABS: ALBUMIN 3.6 g/dL (3.5-5.0); ALKALINE PHOSPHATASE 161 U/L (38-126); ANION GAP 14 (5-19); ASPARTATE AMINO TRANSFERASE 17 U/L (14-36); BILIRUBIN,DIRECT 0.1 mg/dL (0.0-0.4); BILIRUBIN,TOTAL 0.8 mg/dL (0.2-1.3); BLOOD UREA NITROGEN 34 mg/dL (7-20); CALCIUM 7.6 mg/dL (8.4-10.2); CARBON DIOXIDE 22 mmol/L (22-30); CHLORIDE 93 mmol/L (98-107); CREATINE KINASE 41 U/L (30-135); POTASSIUM 3.9 mmol/L (3.6-5.0); TOTAL PROTEIN 7.2 g/dL (6.3-8.2)
[2019-12-28] MEDS ORDERED: NORMAL SALINE 100 ML with INSULIN REGULAR, HUMAN 100 UNIT IV PRN ×2 (07:54)
[2019-12-28] MEDS ORDERED: GLUCAGON,HUMAN RECOMB 1 MG INJ IM PRN ×3 (07:54→18:19)
[2019-12-28] MEDS ORDERED: DEXTROSE 50%-WATER 25 GM/50 ML DISP.SYRIN IV PRN ×4 (07:54→18:19)
[2019-12-28] MEDS ORDERED: DEXTROSE 40% GEL 15 GM TUBE PO PRN ×5 (07:54→18:19)
[2019-12-28 08:03] LABS: CREATINE KINASE MB 1.65 ng/mL (<4.55); TROPONIN I 0.023 ng/mL
[2019-12-28] MEDS ORDERED: NICARDIPINE HCL RTU, ISO-OS 20 MG/200 ML RTUINJ IV PRN (08:08)
[2019-12-28 08:22] LABS: GLUCOSE 632 mg/dL (75-110)
[2019-12-28] MEDS ORDERED: HYDRALAZINE HCL INJ/PF 20 MG/1 ML SDV IV ONE ×2 (08:25→08:54)
[2019-12-28] MEDS ORDERED: INSULIN LISPRO 100 UNIT/ML 3 ML VIAL ONE (09:15)
[2019-12-28] MEDS ORDERED: INSULIN REG, HUMAN 100 UNIT/ML 3 ML VIAL (PYX) ONE (09:19)
--- NOTE | 2019-12-28 09:33 | EKG REPORT ---
SEVERITY:- ABNORMAL ECG - SINUS RHYTHM LEFT ATRIAL ABNORMALITY PROBABLE LVH WITH SECONDARY REPOL ABNRM BORDERLINE PROLONGED QT INTERVAL : Confirmed by: Roselyn Ziegler MD 28-Dec-2019 09:32:45
[2019-12-28] MEDS ORDERED: HYDRALAZINE HCL INJ/PF 20 MG/1 ML SDV IV PRN (10:06)
[2019-12-28] MEDS ORDERED: LABETALOL HCL INJ 20 MG/4 ML DISP.SYRIN IV PRN (10:07)
[2019-12-28] MEDS: HEPARIN SOD (PORCINE) 5,000 UNIT/ML 1 ML VIAL SUBCUT SCH ×2 (13:38→21:47)
[2019-12-28] MEDS ORDERED: DEXTROSE 50%-WATER SYRINGE 25 GM/50 ML DOSE IV PRN (14:00)
[2019-12-28] MEDS ORDERED: DEXTROSE 40% GEL 15 GM TUBE X 2 PO PRN (14:00)
[2019-12-28] MEDS ORDERED: DEXTROSE 50%-WATER SYRINGE 12.5 GM/25 ML DOSE IV PRN (14:00)
[2019-12-28] MEDS: NYSTATIN/DEXAMETH/DIPHEN SUSP 120 ML PO SCH ×3 (14:27→21:15)
[2019-12-28] MEDS: INSULIN, REGULAR 100 UNIT/100 ML NORMAL SALINE IV PRN ×6 (14:32→14:50)
--- NOTE | 2019-12-28 14:46 | PDOC H&P ---
History of Present Illness Admission Date/PCP: 12/28/19 10:02 IRENE SAMANIEGO History of Present Illness: SAMIA HEALY is a 59 year old female who is extremely frail as a result of her uncontrolled diabetes, hypertension, and end-stage renal disease. She is frequently in the hospital. If her system gets the least little bit out of balance in any way for any reason, she responds by having these episodes of tremulousness, which is well-documented in this hospital, and she had another 1 of those episodes again and so her family called EMS. The patient herself is not a very good historian and she is not terribly self-aware. She cannot really explain to me how she was feeling. She is able to speak in complete sentences and form coherent thoughts, but she is just not a very good storyteller about her health. In the ER she had a profoundly elevated blood pressure, which fortu nately responded to repeat doses of IV medications. She was also noted to have a substantially elevated blood sugar. She says she is not taking any of her medications this morning. She does not recall any particular episode where she ate something she should not have or missed doses of her medications this weekend, at least this is what she is telling me. Past Medical History Cardiac Medical History: Reports: Hypertension Denies: Atrial Fibrillation, Congestive Heart Failure, Coronary Artery Disease, Myocardial Infarction Pulmonary Medical History: Reports: Pneumonia Denies: Asthma, Bronchitis, Chronic Obstructive Pulmonary Disease (COPD) Neurological Medical History: Denies: Migraine, Seizures Endocrine Medical History: Reports: Diabetes Mellitus Type 2 Denies: Diabetes Mellitus Type 1, Hyperthyroidism, Hypothyroidism Renal/ Medical History: Reports: End Stage Renal Disease GI Medical History: Denies: Cirrhosis, Crohn's Disease, Gastroesophageal Reflux Disease, Hepatitis, Ulcerative Colitis Musculoskeltal Medical History: Denies: Arthritis, Fibromyalgia Skin Medical History: Denies: Eczema, Psoriasis Psychiatric Medical History: Denies: Depression Hematology: Reports: Anemia - Chronic due to ESRD Denies: Bleeding Tendencies Past Surgical History Past Surgical History: Reports: Appendectomy, Section, Cholecystectomy, Orthopedic Surgery - Bilateral foot surgery, Tubal Ligation, Vascular Surgery - fistula upper arm (left) Done at [facility], Other - Tunneled central venous catheter placement for dialysis Social History Smoking Status: Former Smoker Cigarettes Packs Per Day: 0.5 Electronic Cigarette use?: No Number of Years Smokin Frequency of Alcohol Use: None Hx Recreational Drug Use: No Drugs: None Hx Prescription Drug Abuse: No Family History Family History: DM, Hypertension Parental Family History Reviewed: No - She does not know Children Family History Reviewed: Unknown Sibling(s) Family History Reviewed.: Unknown Medication/Allergy Home Medications: Atorvastatin Calcium [Lipitor 20 mg Tablet] 20 mg PO QHS 09/09/19 Gabapentin [Neurontin 100 mg Capsule] 300 mg PO Q8 09/09/19 Ondansetron HCl [Zofran 8 mg Tablet] 8 mg PO Q8HP PRN 11/02/19 Amlodipine Besylate [Norvasc 5 mg Tablet] 10 mg PO QHS 30 Days 11/10/19 Aspirin [Aspirin 81 mg Chewable Tablet] 81 mg PO DAILY 11/30/19 Clonidine HCl 0.3 mg PO Q8 11/30/19 Insulin Aspart [Novolog Flexpen] 5 units SUBCUT TID 11/30/19 Insulin Degludec [Tresiba Flextouch U-100] 14 unit SQ QHS 11/30/19 Meclizine HCl [Antivert 12.5 mg Tablet] 12.5 mg PO ASDIR PRN 11/30/19 Sucroferric Oxyhydroxide [Velphoro] 500 mg PO AC 11/30/19 Acetaminophen [Tylenol 325 mg Tablet] 650 mg PO Q4HP PRN tablet 12/02/19 Mag Hydrox/Al Hydrox/Simeth [Maalox Plus Susp 30 Udcup] 30 ml PO Q6HP PRN udc 12/02/19 Magnesium Hydroxide [Milk of Magnesia 30 ml Udcup] 30 ml PO HSP PRN udc 12/02/19 Pantoprazole Sodium [Protonix [address] Tablet] 40 mg PO BID 30 Days #60 tablet.dr 12/02/19 Sucralfate [Carafate 1 gm Tablet] 1 gm PO ACHS #120 tablet 12/02/19 Allergies/Adverse Reactions: Penicillins Allergy (Severe, Verified 12/28/19 07:09) rash ciprofloxacin [From Cipro] Allergy (Verified 12/28/19 07:09) shellfish derived Allergy (Verified 12/28/19 07:09) Swelling of tongue oxycodone [From Percocet] Adverse Reaction (Verified 12/28/19 07:09) Review of Systems All systems: reviewed and no additional remarkable complaints except as stated - All systems were reviewed and were negative except as noted in the HPI Physical Exam Vital Signs: Temp Pulse Resp BP Pulse Ox 97.8 F 85 20 171/72 H 100 12/28/19 08:01 12/28/19 12:46 12/28/19 12:00 12/28/19 12:00 12/28/19 12:00 Intake & Output 12/27/19 12/28/19 12/29/19 06:59 06:59 06:59 Intake Total 17 Balance 17 Weight 65 kg General appearance: PRESENT: no acute distress, cooperative, disheveled, obese Head exam: PRESENT: atraumatic, normocephalic Eye exam: PRESENT: EOMI, PERRLA. ABSENT: conjunctival injection, nystagmus, scleral icterus Ear exam: PRESENT: normal external ear exam Mouth exam: PRESENT: moist, neck supple, other - She has thrush on her tongue Teeth exam: PRESENT: edentulous Throat exam: ABSENT: post pharyngeal erythema Neck exam: PRESENT: full ROM. ABSENT: carotid bruit, JVD, meningismus, tenderness, thyromegaly Respiratory exam: PRESENT: clear to auscultation carlos, symmetrical, unlabored. ABSENT: accessory muscle use, chest wall tenderness, crackles, prolonged expiratory phas, rhonchi, tachypnea, wheezes Cardiovascular exam: PRESENT: RRR, +S1, +S2 Pulses: PRESENT: normal carotid pulses Vascular exam: PRESENT: normal capillary refill GI/Abdominal exam: PRESENT: normal bowel sounds, soft. ABSENT: distended, guarding, rebound, tenderness Extremities exam: ABSENT: clubbing, pedal edema Musculoskeletal exam: PRESENT: normal inspection. ABSENT: deformity Neurological exam: PRESENT: awake, oriented to person, oriented to place, CN II- XII grossly intact. ABSENT: motor sensory deficit Psychiatric exam: PRESENT: flat affect Skin exam: PRESENT: dry, warm Results Laboratory Results: 12/28/19 07:20 12/28/19 07:20 12/28/19 12/28/19 07:20 07:20 WBC 9.8 RBC 3.50 L Hgb 11.3 L Hct 34.5 L MCV 98 H D MCH 32.1 MCHC 32.7 RDW 16.8 H Plt Count 301 Seg Neutrophils % 84.1 H Sodium 129.1 L Potassium 3.9 Chloride 93 L Carbon Dioxide 22 Anion Gap 14 BUN 34 H Creatinine 6.10 H Est GFR ( Amer) 9 L Glucose 632 H* Calcium 7.6 L Total Bilirubin 0.8 AST 17 Alkaline Phosphatase 161 H Total Protein 7.2 Albumin 3.6 12/28/19 12/28/19 07:20 07:20 Creatine Kinase 41 CK-MB (CK-2) 1.65 Troponin I 0.023 Impressions: Chest X-Ray 12/28/19 06:39 IMPRESSION: 1. Volume loss in the right lung base which may be due to a combination of pleural fluid, atelectasis, aspiration or inflammatory changes. 2. Slight elevation of the left hemidiaphragm. 3. Vascular stents project over the proximal left upper extremity and left axillary region. Head CT 12/28/19 06:39 IMPRESSION: No acute intracranial hemorrhage is seen. Assessment and Plan - Diagnosis (1) Hypertensive emergency Is this a current diagnosis for this admission?: Yes Plan: Organ to get her back on her home medications and will get some PRN medication available IV. (2) End-stage renal disease on hemodialysis Is this a current diagnosis for this admission?: Yes Plan: Nephrology has been consulted for dialysis (3) Hyperosmolar non-ketotic state in patient with type 2 diabetes mellitus Is this a current diagnosis for this admission?: Yes Plan: We will keep her on insulin drip for the time being to get her blood sugars under better control and then transition her to her home regimen. (4) Hyponatremia Is this a current diagnosis for this admission?: Yes Plan: Likely pseudohyponatremia from her elevated blood sugar. We will follow the trend as her blood sugars come down. (5) Oral thrush Is this a current diagnosis for this admission?: Yes Plan: I have ordered her some Magic mouthwash (6) Hypocalcemia Is this a current diagnosis for this admission?: Yes Plan: Replacing with an IV supplement (7) Hyperlipidemia Qualifiers: Hyperlipidemia type: other hyperlipidemia Qualified Code(s): E78.49 - Other hyperlipidemia; E78.4 - Other hyperlipidemia Is this a current diagnosis for this admission?: Yes Plan: Continue her Lipitor (8) Gastro-esophageal reflux Qualifiers: Esophagitis presence: without esophagitis Qualified Code(s): K21.9 - Gastr o-esophageal reflux disease without esophagitis Is this a current diagnosis for this admission?: Yes Plan: Continue Protonix - Time Time Spent with patient: 35 or more minutes
[2019-12-28] MEDS ORDERED: (PENDING PHARMACY ID) (Buspirone Hcl [Buspirone Hcl] 7.5 MG) PO PRN (18:17)
[2019-12-28] MEDS: SUCRALFATE 1 GM TABLET PO SCH (21:15)
[2019-12-28] MEDS: INSULIN LISPRO 100 UNIT/ML 3 ML VIAL SUBCUT SCH (21:15)
[2019-12-28] MEDS: CARVEDILOL 12.5 MG TABLET PO SCH (21:15)
[2019-12-28] MEDS: CLONIDINE HCL 0.1 MG TABLET PO SCH (21:15)
[2019-12-28] MEDS: AMLODIPINE BESYLATE 10 MG TABLET PO SCH (21:15)
[2019-12-28] MEDS ORDERED: AMLODIPINE BESYLATE 5 MG TABLET PO SCH (22:00)
[2019-12-28] MEDS ORDERED: INSULIN DEGLUDEC 14 UNIT SUBCUT SCH (22:00)
[2019-12-28] MEDS ORDERED: (PENDING PHARMACY ID) (Clonidine Hcl [Clonidine Hcl] 0.3 MG) PO SCH (22:00)
[2019-12-29] MEDS: HEPARIN SOD (PORCINE) 5,000 UNIT/ML 1 ML VIAL SUBCUT SCH ×3 (05:19→22:14)
[2019-12-29] MEDS: CLONIDINE HCL 0.1 MG TABLET PO SCH ×3 (05:19→22:23)
[2019-12-29 05:55] LABS: HEMATOCRIT 28.8 % (36.0-47.0); HEMOGLOBIN 9.7 g/dL (12.0-15.5); MEAN CORPUSCULAR HGB CONC 33.6 g/dL (32.0-36.0); MEAN CORPUSCULAR VOLUME 95 fl (80-97); PLATELET COUNT 282 10^3/uL (150-450); RED BLOOD COUNT 3.02 10^6/uL (3.72-5.28); RED CELL DISTRIBUTION WIDTH 16.7 % (11.5-14.0); WHITE BLOOD COUNT 9.8 10^3/uL (4.0-10.5)
[2019-12-29 06:07] LABS: ANION GAP 16 (5-19); CARBON DIOXIDE 21 mmol/L (22-30); CHLORIDE 91 mmol/L (98-107); POTASSIUM 4.4 mmol/L (3.6-5.0)
[2019-12-29 06:19] LABS: BLOOD UREA NITROGEN 54 mg/dL (7-20); GLUCOSE 406 mg/dL (75-110)
[2019-12-29] MEDS ORDERED: INSULIN LISPRO 100 UNIT/ML 3 ML VIAL ONE (06:19)
[2019-12-29] MEDS: INSULIN LISPRO 100 UNIT/ML 3 ML VIAL SUBCUT SCH ×4 (06:24→22:08)
[2019-12-29] MEDS ORDERED: INSULIN LISPRO 100 UNIT/ML 3 ML VIAL SUBCUT ONE (06:30)
[2019-12-29] MEDS ORDERED: GABAPENTIN 300 MG CAPSULE PO ONE (06:30)
[2019-12-29] MEDS: SUCRALFATE 1 GM TABLET PO SCH ×4 (08:14→22:14)
[2019-12-29] MEDS ORDERED: INSULIN GLARGINE,HUM.REC.ANLOG 1,000 UNIT/10 ML VIAL SUBCUT SCH (10:00)
--- NOTE | 2019-12-29 10:55 | PDOC CONSULTATION ---
Consultation Consult Date: 12/29/19 Provider Consulted: Brooke FLORES Consult reason:: ESRD for HD. History of Present Illness Admission Date/PCP: 12/28/19 10:02 IRENE SAMAINEGO History of Present Illness: SAMIA HEALY is a 59 year old female with a history of ESRD on HD secondary to uncontrolled diabetes, hypertension, with history of multiple admissions usually with fluid overload and hypertensive urgency because of noncompliance with diet medications and complete dialysis treatments was admitted with a history of some alteration of her mental status. Evaluations in the ER revealed that she was severely hyperglycemic and hypertensive urgency and was admitted for further evaluations and management. Her blood pressure responded very well to IV medications and the blood sugars are now much better. She is currently being seen while undergoing dialysis. She denies any history of chest pain or shortness of breath. She denies any history of headaches or apparent history of seizures. She was admitted early of last month with rectal bleed and had EGD/colonoscopy which showed gastritis/duodenitis/diverticulosis without diverticulitis and internal hemorrhoids. Labs and medications were reviewed. Patient is currently being seen while undergoing dialysis without any issues. She looks quite comfortable. Dialysis orders were reviewed with the treating dialysis nurse. Past Medical History Cardiac Medical History: Reports: Hypertension-primary Denies: Atrial Fibrillation, Coronary Artery Disease, Myocardial Infarction Pulmonary Medical History: Reports: Pneumonia Denies: Asthma, Bronchitis, Chronic Obstructive Pulmonary Disease (COPD) Neurological Medical History: Denies: Migraine, Seizures Endocrine Medical History: Reports: Diabetes Mellitus Type 2 Denies: Diabetes Mellitus Type 1, Hyperthyroidism, Hypothyroidism Renal/ Medical History: Reports: End Stage Renal Disease, Secondary Hyperparathyroidism GI Medical History: Denies: Cirrhosis, Crohn's Disease, Gastroesophageal Reflux Disease, Hepatitis, Ulcerative Colitis Musculoskeltal Medical History: Denies: Arthritis, Fibromyalgia Skin Medical History: Denies: Eczema, Psoriasis Psychiatric Medical History: Denies: Depression Past Surgical History Past Surgical History: Reports: Appendectomy, Section, Cholecystectomy, Dialysis Access Surgery AVF - Left upper arm placed with Vidant, Orthopedic Surgery - Bilateral foot surgery, Tubal Ligation, Vascular Surgery - fistula upper arm (left) Done at [facility], Other - Tunneled central venous catheter placement for dialysis Social History Smoking Status: Former Smoker Cigarettes Packs Per Day: 0.5 Electronic Cigarette use?: No Number of Years Smokin Frequency of Alcohol Use: None Hx Recreational Drug Use: No Drugs: None Hx Prescription Drug Abuse: No Family History Parental Family History Reviewed: Yes - Negative for ESRD Children Family History Reviewed: No Sibling(s) Family History Reviewed.: No Medication/Allergy Home Medications: Gabapentin [Neurontin 100 mg Capsule] 300 mg PO BID 09/09/19 Amlodipine Besylate [Norvasc 5 mg Tablet] 10 mg PO QHS 30 Days 11/10/19 Aspirin [Aspirin 81 mg Chewable Tablet] 81 mg PO DAILY 11/30/19 Clonidine HCl 0.3 mg PO Q8 11/30/19 Insulin Aspart [Novolog Flexpen] 5 units SUBCUT TID 11/30/19 Insulin Degludec [Tresiba Flextouch U-100] 14 unit SQ QHS 11/30/19 Pantoprazole Sodium [Protonix [address] Tablet] 40 mg PO BID 30 Days #60 tabl et.dr 12/02/19 Sucralfate [Carafate 1 gm Tablet] 1 gm PO ACHS #120 tablet 12/02/19 Buspirone HCl 7.5 mg PO BIDP PRN 12/28/19 Carvedilol [Coreg 12.5 mg Tablet] 12.5 mg PO BID 12/28/19 Allergies/Adverse Reactions: Penicillins Allergy (Severe, Verified 12/28/19 07:09) rash ciprofloxacin [From Cipro] Allergy (Verified 12/28/19 07:09) shellfish derived Allergy (Verified 12/28/19 07:09) Swelling of tongue oxycodone [From Percocet] Adverse Reaction (Verified 12/28/19 07:09) Review of Systems Constitutional: ABSENT: fever(s), headache(s), night sweats, weakness Nose, Mouth, and Throat: ABSENT: mouth pain, sore throat Cardiovascular: ABSENT: edema, orthropnea, palpitations Respiratory: ABSENT: dyspnea, hemoptysis Gastrointestinal: ABSENT: abdominal pain, bloating, coffee ground emesis, diarrhea, dysphagia, hematemesis, melena, nausea, vomiting Genitourinary: ABSENT: difficulty urinating, dysuria Musculoskeletal: ABSENT: deformity, joint swelling Integumentary: ABSENT: lesions, pruritus Neurological: ABSENT: abnormal movements, focal weakness, frequent falls Hematologic/Lymphatic: ABSENT: easy bruising, lymphadenopathy Physical Exam Vital Signs: Temp Pulse Resp BP Pulse Ox 97.9 F 67 18 102/47 L 97 12/29/19 03:05 12/29/19 07:00 12/29/19 03:05 12/29/19 03:05 12/29/19 03:05 Intake & Output 12/28/19 12/29/19 12/30/19 06:59 06:59 06:59 Intake Total 208 Output Total 0 Balance 208 Weight 66.6 kg General appearance: PRESENT: no acute distress Eye exam: PRESENT: EOMI, PERRLA. ABSENT: scleral icterus Ear exam: PRESENT: normal external ear exam Mouth exam: PRESENT: moist Neck exam: ABSENT: lymphadenopathy, meningismus, tenderness, thyromegaly, tracheal deviation Respiratory exam: PRESENT: clear to auscultation carlos. ABSENT: crackles, decreased breath sounds Cardiovascular exam: PRESENT: +S1, +S2 GI/Abdominal exam: PRESENT: normal bowel sounds, soft. ABSENT: organomegaly, tenderness Extremities exam: ABSENT: pedal edema Neurological exam: PRESENT: alert, awake, oriented to person, oriented to place Psychiatric exam: PRESENT: appropriate affect Skin exam: ABSENT: cyanosis, erythema, rash Results Laboratory Results: 12/29/19 05:22 12/29/19 05:22 12/29/19 12/29/19 05:22 05:22 WBC 9.8 RBC 3.02 L Hgb 9.7 L Hct 28.8 L MCV 95 MCH 32.0 MCHC 33.6 RDW 16.7 H Plt Count 282 Sodium 127.6 L Potassium 4.4 Chloride 91 L Carbon Dioxide 21 L Anion Gap 16 BUN 54 H D Creatinine 8.88 H Est GFR ( Amer) 6 L Glucose 406 H* Calcium 8.0 L Magnesium 2.1 12/28/19 12/28/19 07:20 07:20 Creatine Kinase 41 CK-MB (CK-2) 1.65 Troponin I 0.023 Impressions: Chest X-Ray 12/28/19 06:39 IMPRESSION: 1. Volume loss in the right lung base which may be due to a combination of pleural fluid, atelectasis, aspiration or inflammatory changes. 2. Slight elevation of the left hemidiaphragm. 3. Vascular stents project over the proximal left upper extremity and left axillary region. Head CT 12/28/19 06:39 IMPRESSION: No acute intracranial hemorrhage is seen. Assessment & Plan - Diagnosis (1) End stage renal failure on dialysis Plan: Patient currently undergoing dialysis without any issues. Vital signs are stable. Dialysis being supervised to ensure safe and smooth procedure. Plan to remove 1-2 L as tolerated. Dialysis orders were reviewed with the treating dialysis nurse. . (2) Accelerated hypertension Plan: Presently under good control while being seen on dialysis. (3) Diabetes mellitus type 2 in nonobese Plan: Poorly controlled. 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 Advised better dietary modifications (5) Mental status alteration Qualifiers: Altered mental status type: transient alteration of awareness Qualified Code(s): R40.4 - Transient alteration of awareness Plan: Currently resolved. (6) Anemia in chronic kidney disease (CKD) Qualifiers: Plan: Adjust erythropoietin.
[2019-12-29] MEDS: CARVEDILOL 12.5 MG TABLET PO SCH ×2 (12:12→22:23)
[2019-12-29] MEDS: ASPIRIN 81 MG TABLET, CHEWABLE PO SCH (12:12)
[2019-12-29] MEDS: PANTOPRAZOLE SODIUM 40 MG TABLET.DR PO SCH ×2 (12:12→17:41)
[2019-12-29] MEDS: NYSTATIN/DEXAMETH/DIPHEN SUSP 120 ML PO SCH ×4 (12:13→22:14)
--- NOTE | 2019-12-29 17:13 | PDOC PROGRESS REPORT ---
Subjective Progress Note for:: 12/29/19 Subjective:: No adverse events overnight. No new complaints. Blood pressure has improved. She received dialysis this morning. Blood sugar spiked up high again and she was started on some twice a day Lantus in addition to her sliding scale. Reason For Visit: HYPERTENSIVE EMERGENCY,HYPERGLYCEMIA,ESRD Physical Exam Vital Signs: Temp Pulse Resp BP Pulse Ox 97.6 F 73 16 131/45 H 99 12/29/19 11:37 12/29/19 14:00 12/29/19 11:37 12/29/19 11:37 12/29/19 11:37 Intake & Output 12/28/19 12/29/19 12/30/19 06:59 06:59 06:59 Intake Total 208 240 Output Total 0 0 Balance 208 240 Weight 66.6 kg General appearance: PRESENT: no acute distress, cooperative, disheveled, obese Respiratory exam: PRESENT: clear to auscultation carlos, symmetrical, unlabored. ABSENT: accessory muscle use, chest wall tenderness, crackles, prolonged expiratory phas, rhonchi, tachypnea, wheezes Cardiovascular exam: PRESENT: RRR, +S1, +S2 Pulses: PRESENT: normal carotid pulses Vascular exam: PRESENT: normal capillary refill GI/Abdominal exam: PRESENT: normal bowel sounds, soft. ABSENT: distended, guarding, rebound, tenderness Extremities exam: ABSENT: clubbing, pedal edema Musculoskeletal exam: PRESENT: normal inspection. ABSENT: deformity Neurological exam: PRESENT: awake, oriented to person, oriented to place, oriented to situation Psychiatric exam: PRESENT: appropriate affect, normal mood Skin exam: PRESENT: dry, warm Results Laboratory Results: 12/29/19 05:22 12/29/19 05:22 12/29/19 12/29/19 05:22 05:22 WBC 9.8 RBC 3.02 L Hgb 9.7 L Hct 28.8 L MCV 95 MCH 32.0 MCHC 33.6 RDW 16.7 H Plt Count 282 Sodium 127.6 L Potassium 4.4 Chloride 91 L Carbon Dioxide 21 L Anion Gap 16 BUN 54 H D Creatinine 8.88 H Est GFR ( Amer) 6 L Glucose 406 H* Calcium 8.0 L Magnesium 2.1 12/28/19 12/28/19 07:20 07:20 Creatine Kinase 41 CK-MB (CK-2) 1.65 Troponin I 0.023 Impressions: Chest X-Ray 12/28/19 06:39 IMPRESSION: 1. Volume loss in the right lung base which may be due to a combination of pleural fluid, atelectasis, aspiration or inflammatory changes. 2. Slight elevation of the left hemidiaphragm. 3. Vascular stents project over the proximal left upper extremity and left axillary region. Head CT 12/28/19 06:39 IMPRESSION: No acute intracranial hemorrhage is seen. Assessment and Plan - Diagnosis (1) Hypertensive emergency Is this a current diagnosis for this admission?: Yes Plan: Resolved. Now she is back on home medications. (2) End-stage renal disease on hemodialysis Is this a current diagnosis for this admission?: Yes Plan: Nephrology consulted for hemodialysis (3) Hyperosmolar non-ketotic state in patient with type 2 diabetes mellitus Is this a current diagnosis for this admission?: Yes Plan: Resolved. We started on some twice a day Lantus and her afternoon blood sugar was much better. If her blood pressure and blood sugars are well enough controlled tomorrow she can go home. (4) Hyponatremia Is this a current diagnosis for this admission?: Yes Plan: Likely a pseudohyponatremia from her elevated blood sugars. We will follow-up her metabolic panel in the morning that her glucose control is improved (5) Oral thrush Is this a current diagnosis for this admission?: Yes Plan: She is responding to the Magic mouthwash (6) Hypocalcemia Is this a current diagnosis for this admission?: Yes Plan: Calcium has come up, likely corrects to normal (7) Hyperlipidemia Qualifiers: Hyperlipidemia type: other hyperlipidemia Qualified Code(s): E78.49 - Other hyperlipidemia; E78.4 - Other hyperlipidemia Is this a current diagnosis for this admission?: Yes Plan: Continue her Lipitor (8) Gastro-esophageal reflux Qualifiers: Esophagitis presence: without esophagitis Qualified Code(s): K21.9 - Gastro-esophageal reflux disease without esophagitis Is this a current diagnosis for this admission?: Yes Plan: Continue Protonix - Time Time Spent with patient: 25-34 minutes
[2019-12-29] MEDS: GABAPENTIN 300 MG CAPSULE PO SCH (17:41)
[2019-12-29] MEDS ORDERED: INSULIN GLARGINE,HUM.REC.ANLOG 1,000 UNIT/10 ML VIAL (PYX) SUBCUT ONE (22:00)
[2019-12-29] MEDS: AMLODIPINE BESYLATE 10 MG TABLET PO SCH (22:24)
[2019-12-30] MEDS: CLONIDINE HCL 0.1 MG TABLET PO SCH (05:20)
[2019-12-30] MEDS: HEPARIN SOD (PORCINE) 5,000 UNIT/ML 1 ML VIAL SUBCUT SCH (05:21)
[2019-12-30 06:04] LABS: HEMATOCRIT 31.6 % (36.0-47.0); HEMOGLOBIN 10.4 g/dL (12.0-15.5); MEAN CORPUSCULAR HEMOGLOBIN 31.5 pg (27.0-33.4); MEAN CORPUSCULAR VOLUME 96 fl (80-97); PLATELET COUNT 263 10^3/uL (150-450); RED BLOOD COUNT 3.31 10^6/uL (3.72-5.28); RED CELL DISTRIBUTION WIDTH 17.1 % (11.5-14.0); WHITE BLOOD COUNT 6.4 10^3/uL (4.0-10.5)
[2019-12-30 06:19] LABS: ANION GAP 10 (5-19); CALCIUM 8.6 mg/dL (8.4-10.2); CARBON DIOXIDE 29 mmol/L (22-30); CHLORIDE 96 mmol/L (98-107); GLUCOSE 157 mg/dL (75-110); POTASSIUM 3.8 mmol/L (3.6-5.0)
[2019-12-30 06:41] LABS: BLOOD UREA NITROGEN 35 mg/dL (7-20)
[2019-12-30] MEDS: SUCRALFATE 1 GM TABLET PO SCH (08:20)
[2019-12-30] MEDS: INSULIN LISPRO 100 UNIT/ML 3 ML VIAL SUBCUT SCH (08:20)
[2019-12-30] MEDS: PANTOPRAZOLE SODIUM 40 MG TABLET.DR PO SCH (09:16)
[2019-12-30] MEDS: ASPIRIN 81 MG TABLET, CHEWABLE PO SCH (09:16)
[2019-12-30] MEDS: GABAPENTIN 300 MG CAPSULE PO SCH (09:17)
[2019-12-30] MEDS: CARVEDILOL 12.5 MG TABLET PO SCH (09:18)
[2019-12-30] MEDS: NYSTATIN/DEXAMETH/DIPHEN SUSP 120 ML PO SCH (09:18)
[2019-12-30 09:31] VITALS: BP 120/46
[2019-12-30] MEDS ORDERED: INSULIN GLARGINE,HUM.REC.ANLOG 1,000 UNIT/10 ML VIAL SUBCUT SCH (10:00)
--- NOTE | 2019-12-30 14:13 | PDOC DISCHARGE SUMMARY ---
Impression - Admit/DC Date/PCP Admission Date/Primary Care Provider: 12/28/19 10:02 IRENE SAMANIEGO Discharge Date: 12/30/19 - Discharge Diagnosis (1) Hypertensive emergency Is this a current diagnosis for this admission?: Yes (2) End-stage renal disease on hemodialysis Is this a current diagnosis for this admission?: Yes (3) Hyperosmolar non-ketotic state in patient with type 2 diabetes mellitus Is this a current diagnosis for this admission?: Yes (4) Hyponatremia Is this a current diagnosis for this admission?: Yes (5) Oral thrush Is this a current diagnosis for this admission?: Yes (6) Hypocalcemia Is this a current diagnosis for this admission?: Yes (7) Hyperlipidemia Is this a current diagnosis for this admission?: Yes (8) Gastro-esophageal reflux Is this a current diagnosis for this admission?: Yes - Additional Information Resuscitation Status: Full Code Discharge Diet: Diabetic, Other (Comments) Discharge Activity: Balance Activity w/Rest, Supervised Activity Referrals: IRENE SAMANIEGO MD [Primary Care Provider] - 01/05/20 10:00 am (WITH Mariluz Hillman) Home Medications: Amlodipine Besylate [Norvasc 5 mg Tablet] 10 mg PO QHS 30 Days 11/10/19 Aspirin [Aspirin 81 mg Chewable Tablet] 81 mg PO DAILY 11/30/19 Clonidine HCl 0.3 mg PO Q8 11/30/19 Insulin Aspart [Novolog Flexpen] 5 units SUBCUT TID 11/30/19 Insulin Degludec [Tresiba Flextouch U-100] 14 unit SQ QHS 11/30/19 Pantoprazole Sodium [Protonix [address] Tablet] 40 mg PO BID 30 Days #60 tablet.dr 12/02/19 Sucralfate [Carafate 1 gm Tablet] 1 gm PO ACHS #120 tablet 12/02/19 Buspirone HCl 7.5 mg PO BIDP PRN 12/28/19 Carvedilol [Coreg 12.5 mg Tablet] 12.5 mg PO BID 12/28/19 History of Present Illiness History of Present Illness: SAMIA HEALY is a 59 year old female who is extremely frail as a result of her uncontrolled diabetes, hypertension, and end-stage renal disease. She is frequently in the hospital. If her system gets the least little bit out of balance in any way for any reason, she responds by having these episodes of tremulousness, which is well-documented in this hospital, and she had another 1 of those episodes again and so her family called EMS. The patient herself is not a very good historian and she is not terribly self-aware. She cannot really explain to me how she was feeling. She is able to speak in complete sentences and form coherent thoughts, but she is just not a very good storyteller about her health. In the ER she had a profoundly elevated blood pressure, which fortunately responded to repeat doses of IV medications. She was also noted to have a substantially elevated blood sugar. She says she is not taking any of her medications this morning. She does not recall any particular episode where she ate something she should not have or missed doses of her medications this weekend, at least this is what she is telling me. Hospital Course Hospital Course: We were able to get her blood pressure under control fairly rapidly with IV medications and then were able to transition her over to her home medications, and interestingly, her blood pressure was very well controlled on just her home medications. Also, her blood sugar was substantially elevated when she came in. I initially thought it was going to take a lot more insulin than what she was on at home, but as it turns out her blood sugars are well enough controlled with what she was supposed to be on at home. She claims that she has been taking all of her medications exactly as directed. I have made no change to her home regimen. She did have some thrush and we gave her some Magic mouthwash to go home with. She did have improvement fairly quickly with this. We checked with nephrology and they said it would be okay for her to wait for her dialysis treatment on Friday. She normally does Friday and today would have been a regularly scheduled day for her. Her labs and examination were reassuring and she was discharged in stable condition. Physical Exam Vital Signs: Temp Pulse Resp BP Pulse Ox 98.0 F 66 16 120/46 L 98 12/30/19 10:12 12/30/19 10:12 12/30/19 10:12 12/30/19 07:34 12/30/19 10:12 Intake & Output 12/29/19 12/30/19 12/31/19 06:59 06:59 06:59 Intake Total 208 720 Output Total 0 1800 Balance 208 -1080 Weight 66.6 kg 66 kg General appearance: PRESENT: no acute distress, cooperative, disheveled, obese Respiratory exam: PRESENT: clear to auscultation carlos, symmetrical, unlabored. ABSENT: accessory muscle use, chest wall tenderness, crackles, prolonged expiratory phas, rhonchi, tachypnea, wheezes Cardiovascular exam: PRESENT: RRR, +S1, +S2 Pulses: PRESENT: normal carotid pulses Vascular exam: PRESENT: normal capillary refill GI/Abdominal exam: PRESENT: normal bowel sounds, soft. ABSENT: distended, guarding, rebound, tenderness Extremities exam: ABSENT: clubbing, pedal edema Musculoskeletal exam: PRESENT: normal inspection. ABSENT: deformity Neurological exam: PRESENT: awake, oriented to person, oriented to place, oriented to situation Psychiatric exam: PRESENT: appropriate affect, normal mood Skin exam: PRESENT: dry, warm Results Laboratory Results: WBC 6.4 10^3/uL (4.0-10.5) 12/30/19 05:21 RBC 3.31 10^6/uL (3.72-5.28) L 12/30/19 05:21 Hgb 10.4 g/dL (12.0-15.5) L 12/30/19 05:21 Hct 31.6 % (36.0-47.0) L 12/30/19 05:21 MCV 96 fl (80-97) 12/30/19 05:21 MCH 31.5 pg (27.0-33.4) 12/30/19 05:21 MCHC 33.0 g/dL (32.0-36.0) 12/30/19 05:21 RDW 17.1 % (11.5-14.0) H 12/30/19 05:21 Plt Count 263 10^3/uL (150-450) 12/30/19 05:21 Lymph % (Auto) 6.8 % (13-45) L 12/28/19 07:20 [place] % (Auto) 6.7 % (3-13) 12/28/19 07:20 Eos % (Auto) 1.4 % (0-6) 12/28/19 07:20 Baso % (Auto) 1.0 % (0-2) 12/28/19 07:20 Absolute Neuts (auto) 8.3 10^3/uL (1.7-8.2) H 12/28/19 07:20 Absolute Lymphs (auto) 0.7 10^3/uL (0.5-4.7) 12/28/19 07:20 Absolute Monos (auto) 0.7 10^3/uL (0.1-1.4) 12/28/19 07:20 Absolute Eos (auto) 0.1 10^3/uL (0.0-0.6) 12/28/19 07:20 Absolute Basos (auto) 0.1 10^3/uL (0.0-0.2) 12/28/19 07:20 Seg Neutrophils % 84.1 % (42-78) H 12/28/19 07:20 PT 14.1 SEC (11.4-15.4) 12/28/19 07:20 INR 1.09 12/28/19 07:20 APTT 29.7 SEC (23.5-35.8) 12/28/19 07:20 Sodium 134.8 mmol/L (137-145) L 12/30/19 05:21 Potassium 3.8 mmol/L (3.6-5.0) 12/30/19 05:21 Chloride 96 mmol/L (98-107) L 12/30/19 05:21 Carbon Dioxide 29 mmol/L (22-30) 12/30/19 05:21 Anion Gap 10 (5-19) 12/30/19 05:21 BUN 35 mg/dL (7-20) H 12/30/19 05:21 Creatinine 5.63 mg/dL (0.52-1.25) H 12/30/19 05:21 Est GFR ( Amer) 9 (>60) L 12/30/19 05:21 Est GFR (MDRD) Non-Af 8 (>60) L 12/30/19 05:21 Glucose 157 mg/dL (75-110) H 12/30/19 05:21 POC Glucose 159 mg/dL (70-110) H 12/30/19 07:34 Calcium 8.6 mg/dL (8.4-10.2) 12/30/19 05:21 Magnesium 2.2 mg/dL (1.6-2.3) 12/30/19 05:21 Total Bilirubin 0.8 mg/dL (0.2-1.3) 12/28/19 07:20 Direct Bilirubin 0.1 mg/dL (0.0-0.4) 12/28/19 07:20 Neonat Total Bilirubin Not Reportable 12/28/19 07:20 Neonat Direct Bilirubin Not Reportable 12/28/19 07:20 Neonat Indirect Bili Not Reportable 12/28/19 07:20 AST 17 U/L (14-36) 12/28/19 07:20 ALT 13 U/L (<35) 12/28/19 07:20 Alkaline Phosphatase 161 U/L (38-126) H 12/28/19 07:20 Creatine Kinase 41 U/L (30-135) 12/28/19 07:20 CK-MB (CK-2) 1.65 ng/mL (<4.55) 12/28/19 07:20 Troponin I 0.023 ng/mL 12/28/19 07:20 Total Protein 7.2 g/dL (6.3-8.2) 12/28/19 07:20 Albumin 3.6 g/dL (3.5-5.0) 12/28/19 07:20 12/28/19 07:20 CK-MB (CK-2) 1.65 Troponin I 0.023 Impressions: Chest X-Ray 12/28/19 06:39 IMPRESSION: 1. Volume loss in the right lung base which may be due to a combination of pleural fluid, atelectasis, aspiration or inflammatory changes. 2. Slight elevation of the left hemidiaphragm. 3. Vascular stents project over the proximal left upper extremity and left axillary region. Head CT 12/28/19 06:39 IMPRESSION: No acute intracranial hemorrhage is seen. Plan Time Spent: Greater than 30 Minutes Stroke Is this a Stroke Patient?: No Acute Heart Failure - Is this a Heart Failure Patient?: No
== END 2019-12-30 12:05 | disposition home or self-care (01) | DRG 304 ==
LOC: ER 06:32 → EH 10:02 → 3W 12:42
PROVIDERS: ADMIT Family Medicine; ATTEND Family Medicine
PROC: 5A1D70Z Performance of Urinary Filtration, Intermittent, Less than 6 Hours Per Day (ICD-10-PCS; principal; 2019-12-29)
DX: I16.1 Hypertensive emergency (principal); E11.00 Type 2 diabetes mellitus with hyperosmolarity without nonketotic hyperglycemic-hyperosmolar coma (NKHHC); N18.6 End stage renal disease; E87.1 Hypo-osmolality and hyponatremia; B37.0 Candidal stomatitis; I12.0 Hypertensive chronic kidney disease with stage 5 chronic kidney disease or end stage renal disease; Z99.2 Dependence on renal dialysis; E78.49 Other hyperlipidemia; Z79.899 Other long term (current) drug therapy; K21.9 Gastro-esophageal reflux disease without esophagitis; F17.210 Nicotine dependence, cigarettes, uncomplicated; Z79.4 Long term (current) use of insulin; Z83.3 Family history of diabetes mellitus; Z82.49 Family history of ischemic heart disease and other diseases of the circulatory system; Z90.49 Acquired absence of other specified parts of digestive tract; Z88.0 Allergy status to penicillin; Z91.013 Allergy to seafood; E83.51 Hypocalcemia; Z88.6 Allergy status to analgesic agent
CPT/HCPCS: 36415; 70450; 71045; 80048; 80053; 82550; 82553; 82962; 83735; 84484; 85025; 85027; 85610; 85730; 93005; 93010; 96374; 96375; 99291; J0360; J1644; J1815; J3490

== ENCOUNTER 2020-01-25 08:58 | Inpatient (IN) | payer MEDICARE, MEDICAID ==
[2020-01-25] MEDS ORDERED: NORMAL SALINE 1000 ML 1,000 ML IV ONE (09:00)
[2020-01-25 09:50] LABS: ABSOLUTE BASOPHILS # (AUTO) 0.1 10^3/uL (0.0-0.2); ABSOLUTE EOSINOPHILS # (AUTO) 0.2 10^3/uL (0.0-0.6); ABSOLUTE LYMPHOCYTES (AUTO) 1.1 10^3/uL (0.5-4.7); ABSOLUTE MONOCYTES (AUTO) 0.7 10^3/uL (0.1-1.4); ABSOLUTE NEUT (AUTO) 5.3 10^3/uL (1.7-8.2); BASOPHILS % (AUTO) 0.7 % (0-2); EOSINOPHILS % (AUTO) 2.9 % (0-6); HEMATOCRIT 36.6 % (36.0-47.0); HEMOGLOBIN 11.8 g/dL (12.0-15.5); LYMPHOCYTES % (AUTO) 14.3 % (13-45); MEAN CORPUSCULAR HEMOGLOBIN 31.5 pg (27.0-33.4); MEAN CORPUSCULAR HGB CONC 32.2 g/dL (32.0-36.0); MEAN CORPUSCULAR VOLUME 98 fl (80-97); MONOCYTES % (AUTO) 10.2 % (3-13); PLATELET COUNT 255 10^3/uL (150-450); RED BLOOD COUNT 3.74 10^6/uL (3.72-5.28); RED CELL DISTRIBUTION WIDTH 16.8 % (11.5-14.0); SEGMENTED NEUTROPHILS % (AUTO) 71.9 % (42-78); TOTAL CELLS COUNTED % (AUTO) 100 %; WHITE BLOOD COUNT 7.4 10^3/uL (4.0-10.5)
[2020-01-25 10:09] LABS: ALBUMIN 3.3 g/dL (3.5-5.0); ALKALINE PHOSPHATASE 110 U/L (38-126); ANION GAP 10 (5-19); ASPARTATE AMINO TRANSFERASE 19 U/L (14-36); BILIRUBIN,DIRECT 0.3 mg/dL (0.0-0.4); BILIRUBIN,TOTAL 0.6 mg/dL (0.2-1.3); BLOOD UREA NITROGEN 40 mg/dL (7-20); CALCIUM 7.8 mg/dL (8.4-10.2); CARBON DIOXIDE 23 mmol/L (22-30); CHLORIDE 101 mmol/L (98-107); CREATINE KINASE 82 U/L (30-135); GLUCOSE 216 mg/dL (75-110); POTASSIUM 3.6 mmol/L (3.6-5.0); TOTAL PROTEIN 6.4 g/dL (6.3-8.2)
[2020-01-25 10:18] LABS: CREATINE KINASE MB 1.84 ng/mL (<4.55)
[2020-01-25 10:22] LABS: TROPONIN I 0.078 ng/mL
--- NOTE | 2020-01-25 12:12 | EKG REPORT ---
SEVERITY:- ABNORMAL ECG - SINUS RHYTHM LEFT ATRIAL ABNORMALITY PROBABLE LVH WITH SECONDARY REPOL ABNRM CONSIDER ANTERIOR INFARCT : Confirmed by: Harry Vogel MD 25-Jan-2020 12:10:52
--- NOTE | 2020-01-25 14:04 | ER Document Report ---
Entered by DUTCH SANTIAGO SCRIBE 01/25/20 1008 Acting as scribe for:LYLY SALDAÑA IV, MD ED Blood Pressure Problem - General Chief Complaint: Low Blood Pressure Stated Complaint: HIGH BLOOD PRESSURE Time Seen by Provider: 01/25/20 10:08 Primary Care Provider: IRENE SAMANIEGO MD [Primary Care Provider] - Follow up as needed Information source: Patient Notes: This 59 year old female patient presents from dialysis today for complaints of hypotension. Patient reports they took her blood pressure this morning prior to dialysis and sent her here prior to beginning because of this hypotension. Patient states that other than feeling "tired", she has no other complaints. Patient denies a cough, fevers, chills, or shortness of breath. TRAVEL OUTSIDE OF THE [place] IN LAST 30 DAYS: No - Related Data Allergies/Adverse Reactions: Penicillins Allergy (Severe, Verified 01/25/20 10:27) rash ciprofloxacin [From Cipro] Allergy (Verified 01/25/20 10:27) shellfish derived Allergy (Verified 01/25/20 10:27) Swelling of tongue oxycodone [From Percocet] Adverse Reaction (Verified 01/25/20 10:27) Past Medical History - General Information source: Patient - Social History Smoking Status: Never Smoker Cigarette use (# per day): No Frequency of alcohol use: None Drug Abuse: None Lives with: Family Family History: Reviewed & Not Pertinent, DM, Hypertension - Past Medical History Cardiac Medical History: Reports: Hx Hypertension Pulmonary Medical History: Reports: Hx Pneumonia Endocrine Medical History: Reports: Hx Diabetes Mellitus Type 2 Renal/ Medical History: Reports: Hx End Stage Renal Disease, Hx Hemodialysis Past Surgical History: Reports: Hx Appendectomy, Hx Section, Hx Cholecystectomy, Hx Orthopedic Surgery - Bilateral foot surgery, Hx Tubal Ligation, Hx Vascular Surgery - fistula upper arm (left) Done at [facility], Other - Tunneled central venous catheter placement for dialysis - Immunizations Hx Diphtheria, Pertussis, Tetanus Vaccination: No Hx Pneumococcal Vaccination: 07/21/16 Review of Systems - Review of Systems Constitutional: denies: Chills, Fever EENT: No symptoms reported Cardiovascular: See HPI, Other - hypotension. denies: Chest pain Respiratory: denies: Cough Gastrointestinal: No symptoms reported Genitourinary: No symptoms reported Female Genitourinary: No symptoms reported Musculoskeletal: No symptoms reported Skin: No symptoms reported Hematologic/Lymphatic: No symptoms reported Neurological/Psychological: No symptoms reported -: Yes All other systems reviewed and negative Physical Exam - Vital signs Vitals: Temp BP 98.5 F 95/48 L 01/25/20 09:00 01/25/20 09:00 - Notes Notes: Physical Exam: General: Drowsy but arousable. HEENT: Normocephalic. Atraumatic. PERRL. Extraocular movements intact. Oropharynx clear. Neck: Supple. Non-tender. Respiratory: No respiratory distress. Clear and equal breath sounds bilaterally. Cardiovascular: Regular rate and rhythm. Abdominal: Normal Inspection. Non-tender. No distension. Normal Bowel Sounds. Back: No gross abnormalities. Extremities: Moves all four extremities. Upper extremities: Normal inspection. Normal ROM. Lower extremities: Normal inspection. No edema. Normal ROM. Neurological: Normal cognition. AAOx4. Normal speech. Psychological: Odd affect. Skin: Warm. Dry. Normal color. Course - Re-evaluation Re-evalutation: 01/25/20 15:46 Patient's current pressure is 83/46. Her blood pressure has not significantly improved despite receiving 2-1/2 L of fluid. Patient remains without complaint at this time. Hospitalist service consulted. - Vital Signs Vital signs: Temp Pulse Resp BP Pulse Ox 98.5 F 13 87/55 L 100 01/25/20 09:00 01/25/20 15:46 01/25/20 15:46 01/25/20 15:16 - Laboratory Result Diagrams: 01/25/20 09:39 01/25/20 09:39 Laboratory results interpreted by me: 01/25/20 01/25/20 09:39 09:39 Hgb 11.8 L MCV 98 H RDW 16.8 H Sodium 134.2 L BUN 40 H Creatinine 5.40 H Est GFR ( Amer) 10 L Est GFR (MDRD) Non-Af 8 L Glucose 216 H Calcium 7.8 L Albumin 3.3 L - EKG Interpretation by Me Additional EKG results interpreted by me: 01/25/20 14:21 EKG obtained on 01/25/2020 at 1008 hrs. was interpreted by this MD. Findings normal sinus rhythm, heart rate 66, normal axis, P waves preceding QRS complexes, QRS complexes appear narrow, there are no obvious patterns of ST segment elevation or depression present to suggest acute myocardial ischemia or infarction. Impression: Normal sinus rhythm with nonspecific ST segments. - Consults Dr. Martinez, Nephrology Time consulted: 14:49 - recommended additional 500 ml bolus, check cxr for cardiomegaly, widened mediastinum, evidence of pericardial effusion/tamponade. If bp improves and cxr negative, pt may be d/c'd home. Reason for consultation: 01/25/20 14:[address] Lerma Time consulted: 15:47 Reason for consultation: 01/25/20 15:47 persistent hypotension Consulted provider: will come to ER Discharge - Discharge Clinical Impression: Hypotension Qualifiers: Hypotension type: unspecified hypotension type Qualified Code(s): I95.9 - Hypotension, unspecified Condition: Stable Disposition: ADMITTED OBSERVATION Admitting Provider: Florentin (Hospitalist) Unit Admitted: Telemetry Referrals: IRENE SAMANIEGO MD [Primary Care Provider] - Follow up as needed I personally performed the services described in the documentation, reviewed and edited the documentation which was dictated to the scribe in my presence, and it accurately records my words and actions.
[2020-01-25] MEDS ORDERED: NORMAL SALINE 500 ML IV ONE (14:42)
--- NOTE | 2020-01-25 15:29 | RADIOLOGY REPORT (SQ) ---
EXAM DESCRIPTION: CHEST SINGLE VIEW IMAGES COMPLETED DATE/TIME: 01/25/2020 3:10 pm REASON FOR STUDY: hypotension COMPARISON: 12/28/2019 EXAM PARAMETERS: NUMBER OF VIEWS: One view. TECHNIQUE: Single frontal radiographic view of the chest acquired. RADIATION DOSE: NA LIMITATIONS: None. FINDINGS: LUNGS AND PLEURA: No opacities, masses or pneumothorax. No pleural effusion. MEDIASTINUM AND HILAR STRUCTURES: No masses. Contour normal. HEART AND VASCULAR STRUCTURES: Borderline cardiomegaly. No pulmonary edema. BONES: No acute findings. HARDWARE: Left axillary stent graft. OTHER: No other significant finding. IMPRESSION: Borderline cardiomegaly without pulmonary edema. TECHNICAL DOCUMENTATION: JOB ID: [id number] 2010 [employer]- All Rights Reserved Reading location - IP/workstation name: [email or web address]
[2020-01-25] MEDS ORDERED: NORMAL SALINE 1000 ML 1,000 ML IV PRN (16:23)
[2020-01-25] MEDS ORDERED: ONDANSETRON HCL INJ/PF 4 MG/2 ML SDV IV PRN (16:23)
--- NOTE | 2020-01-25 16:40 | PDOC H&P ---
History of Present Illness Admission Date/PCP: IRENE SAMANIEGO History of Present Illness: SAMIA HEALY is a 59 year old female with end-stage renal disease, hypertension, anxiety, and GERD who is well-known to this service. She presents today after being found to have a low blood pressure on her regularly scheduled dialysis appointment today. She says that she feels fine. She says she is not had any changes in her blood pressure medication. She said that she did have dialysis on Friday and she thinks they pulled 3 L off of her then, and she says they typically only pull 2 L. She has not had any fevers. No chest pain or shortness of breath. No cough. No abdominal pain, nausea, vomiting, or diarrhea. Her systolic was in the 80s at the dialysis center. The dialysis center gave her a liter of fluid and it was essentially unchanged. She got another 1500 mL's here and her systolic is in the low to mid 90s now. Her heart rate was in the 60s. Past Medical History Cardiac Medical History: Reports: Hypertension Denies: Atrial Fibrillation, Congestive Heart Failure, Coronary Artery Disease, Myocardial Infarction Pulmonary Medical History: Reports: Pneumonia Denies: Asthma, Bronchitis, Chronic Obstructive Pulmonary Disease (COPD) Neurological Medical History: Denies: Migraine, Seizures Endocrine Medical History: Reports: Diabetes Mellitus Type 2 Denies: Diabetes Mellitus Type 1, Hyperthyroidism, Hypothyroidism Renal/ Medical History: Reports: End Stage Renal Disease GI Medical History: Denies: Cirrhosis, Crohn's Disease, Gastroesophageal Reflux Disease, Hepatitis, Ulcerative Colitis Musculoskeltal Medical History: Denies: Arthritis, Fibromyalgia Skin Medical History: Denies: Eczema, Psoriasis Psychiatric Medical History: Denies: Depression Hematology: Reports: Anemia - Chronic due to ESRD Denies: Bleeding Tendencies Past Surgical History Past Surgical History: Reports: Appendectomy, Section, Cholecystectomy, Orthopedic Surgery - Bilateral foot surgery, Tubal Ligation, Vascular Surgery - fistula upper arm (left) Done at [facility], Other - Tunneled central venous catheter placement for dialysis Social History Lives with: Family Smoking Status: Never Smoker Frequency of Alcohol Use: None Hx Recreational Drug Use: No Drugs: None Hx Prescription Drug Abuse: No Family History Family History: Reviewed & Not Pertinent, DM, Hypertension Parental Family History Reviewed: Yes Children Family History Reviewed: Yes Sibling(s) Family History Reviewed.: Yes Medication/Allergy Home Medications: Amlodipine Besylate [Norvasc 5 mg Tablet] 10 mg PO QHS 30 Days 11/10/19 Aspirin [Aspirin 81 mg Chewable Tablet] 81 mg PO DAILY 11/30/19 Clonidine HCl 0.3 mg PO Q8 11/30/19 Insulin Aspart [Novolog Flexpen] 5 units SUBCUT TID 11/30/19 Insulin Degludec [Tresiba Flextouch U-100] 14 unit SQ QHS 11/30/19 Pantoprazole Sodium [Protonix [address] Tablet] 40 mg PO BID 30 Days #60 tablet.dr 12/02/19 Sucralfate [Carafate 1 gm Tablet] 1 gm PO ACHS #120 tablet 12/02/19 Buspirone HCl 7.5 mg PO BIDP PRN 12/28/19 Carvedilol [Coreg 12.5 mg Tablet] 12.5 mg PO BID 12/28/19 Allergies/Adverse Reactions: Penicillins Allergy (Severe, Verified 01/25/20 10:27) rash ciprofloxacin [From Cipro] Allergy (Verified 01/25/20 10:27) shellfish derived Allergy (Verified 01/25/20 10:27) Swelling of tongue oxycodone [From Percocet] Adverse Reaction (Verified 01/25/20 10:27) Review of Systems All systems: reviewed and no additional remarkable complaints except as stated - All systems were reviewed and were negative except as noted in the HPI Physical Exam Vital Signs: Temp Pulse Resp BP Pulse Ox 98.5 F 13 94/50 L 100 01/25/20 09:00 01/25/20 16:16 01/25/20 16:16 01/25/20 16:16 Intake & Output 01/24/20 01/25/20 01/26/20 06:59 06:59 06:59 Intake Total 1500 Balance 1500 Weight 65.1 kg General appearance: PRESENT: no acute distress, cooperative, disheveled, obese Head exam: PRESENT: atraumatic, normocephalic Eye exam: PRESENT: EOMI, PERRLA. ABSENT: conjunctival injection, nystagmus, scleral icterus Ear exam: PRESENT: normal external ear exam Mouth exam: PRESENT: dry mucosa, neck supple Teeth exam: PRESENT: edentulous Throat exam: ABSENT: post pharyngeal erythema Neck exam: PRESENT: full ROM. ABSENT: carotid bruit, JVD, lymphadenopathy, meningismus, tenderness, thyromegaly Respiratory exam: PRESENT: clear to auscultation carlos, symmetrical, unlabored. ABSENT: accessory muscle use, chest wall tenderness, crackles, prolonged expiratory phas, rhonchi, tachypnea, wheezes Cardiovascular exam: PRESENT: RRR, +S1, +S2 Pulses: PRESENT: normal carotid pulses Vascular exam: PRESENT: normal capillary refill GI/Abdominal exam: PRESENT: normal bowel sounds, soft. ABSENT: distended, guarding, rebound, tenderness Extremities exam: ABSENT: clubbing, pedal edema Musculoskeletal exam: PRESENT: normal inspection. ABSENT: deformity Neurological exam: PRESENT: alert, awake, oriented to person, oriented to place, oriented to situation, CN II-XII grossly intact. ABSENT: motor sensory deficit Psychiatric exam: PRESENT: appropriate affect, normal mood Skin exam: PRESENT: dry, warm Results Laboratory Results: 01/25/20 09:39 01/25/20 09:39 01/25/20 01/25/20 09:39 09:39 WBC 7.4 RBC 3.74 Hgb 11.8 L Hct 36.6 MCV 98 H MCH 31.5 MCHC 32.2 RDW 16.8 H Plt Count 255 Seg Neutrophils % 71.9 Sodium 134.2 L Potassium 3.6 Chloride 101 Carbon Dioxide 23 Anion Gap 10 BUN 40 H Creatinine 5.40 H Est GFR ( Amer) 10 L Glucose 216 H Calcium 7.8 L Total Bilirubin 0.6 AST 19 Alkaline Phosphatase 110 Total Protein 6.4 Albumin 3.3 L 01/25/20 01/25/20 01/25/20 09:39 09:39 13:21 Creatine Kinase 82 CK-MB (CK-2) 1.84 Troponin I 0.078 0.076 Impressions: Chest X-Ray 01/25/20 14:42 IMPRESSION: Borderline cardiomegaly without pulmonary edema. Assessment and Plan - Diagnosis (1) Hypotension Qualifiers: Hypotension type: unspecified hypotension type Qualified Code(s): I95.9 - Hypotension, unspecified Is this a current diagnosis for this admission?: Yes Plan: Etiology is uncertain. Blood pressure medications will be held. She did respond to IV fluids. It is possible that she had little more fluid taken off and typical on Friday and is because her pressure to be low. Patient is as ymptomatic. Keep her on some IV fluids and will monitor her response and watch for fluid overload (2) Diabetes mellitus type 2 in obese Is this a current diagnosis for this admission?: Yes Plan: Diabetic diet on her home insulin regimen (3) End-stage renal disease on hemodialysis Is this a current diagnosis for this admission?: Yes Plan: Nephrology consulted for possible dialysis tomorrow if her blood pressure improves (4) Gastro-esophageal reflux Qualifiers: Esophagitis presence: without esophagitis Qualified Code(s): K21.9 - Gastro-esophageal reflux disease without esophagitis Is this a current diagnosis for this admission?: Yes Plan: Continue her home medications (5) Hypertension Qualifiers: Hypertension type: essential hypertension Qualified Code(s): I10 - Essential (primary) hypertension Is this a current diagnosis for this admission?: Yes Plan: Home medications being held as previously noted - Time Time Spent with patient: 35 or more minutes - Inpatient Certification Based on my medical assessment, after consideration of the patient's comorbidities, presenting symptoms, or acuity I expect that the services needed warrant INPATIENT care.: Yes I certify that my determination is in accordance with my understanding of Medicare's requirements for reasonable and necessary INPATIENT services [42 CFR 412.3e].: Yes Medical Necessity: Significant Comorbidiites Make Outpatient Treatment Too Risky, Need Close Monitoring Due to Risk of Patient Decompensation, Need For IV Fluids, Need For Continuous Telemetry Monitoring, Risk of Complication if Not Cared For in Hospital
[2020-01-25] MEDS: HEPARIN SOD (PORCINE) 5,000 UNIT/ML 1 ML VIAL SUBCUT SCH (21:51)
[2020-01-25] MEDS ORDERED: MORPHINE SULFATE 10 MG/ML INJ IV PRN (23:13)
[2020-01-26] MEDS: HEPARIN SOD (PORCINE) 5,000 UNIT/ML 1 ML VIAL SUBCUT SCH ×3 (05:31→22:13)
[2020-01-26 06:37] LABS: HEMATOCRIT 36.9 % (36.0-47.0); MEAN CORPUSCULAR HEMOGLOBIN 31.7 pg (27.0-33.4); MEAN CORPUSCULAR HGB CONC 32.5 g/dL (32.0-36.0); MEAN CORPUSCULAR VOLUME 98 fl (80-97); PLATELET COUNT 302 10^3/uL (150-450); RED BLOOD COUNT 3.78 10^6/uL (3.72-5.28); RED CELL DISTRIBUTION WIDTH 17.2 % (11.5-14.0)
[2020-01-26 07:00] LABS: ANION GAP 14 (5-19); BLOOD UREA NITROGEN 47 mg/dL (7-20); CALCIUM 8.7 mg/dL (8.4-10.2); CARBON DIOXIDE 23 mmol/L (22-30); CHLORIDE 99 mmol/L (98-107)
[2020-01-26] MEDS ORDERED: DEXTROSE 40% GEL 15 GM TUBE X 2 PO PRN (07:00)
[2020-01-26] MEDS ORDERED: DEXTROSE 50%-WATER SYRINGE 25 GM/50 ML DOSE IV PRN (07:00)
[2020-01-26] MEDS ORDERED: DEXTROSE 40% GEL 15 GM TUBE PO PRN (07:00)
[2020-01-26] MEDS ORDERED: DEXTROSE 50%-WATER SYRINGE 12.5 GM/25 ML DOSE IV PRN (07:00)
[2020-01-26] MEDS ORDERED: GLUCAGON,HUMAN RECOMB 1 MG INJ IM PRN (07:00)
[2020-01-26 07:03] LABS: GLUCOSE 39 mg/dL (75-110)
--- NOTE | 2020-01-26 16:24 | PDOC PROGRESS REPORT ---
Subjective Progress Note for:: 01/26/20 Subjective:: No adverse events overnight. No new complaints. Blood pressures were still little bit low this morning, but she was able to tolerate hemodialysis. Saw her while she was on hemodialysis and she still had some time left but they had taken off about 2300 mL's at that point. Her blood pressure this afternoon jumped back up into the 150s. Reason For Visit: HYPOTENSION, ESRD Physical Exam Vital Signs: Temp Pulse Resp BP Pulse Ox 97.3 F 81 15 152/64 H 100 01/26/20 12:00 01/26/20 14:00 01/26/20 12:00 01/26/20 12:00 01/26/20 12:00 Intake & Output 01/25/20 01/26/20 01/27/20 06:59 06:59 06:59 Intake Total 1500 Balance 1500 Weight 65.8 kg General appearance: PRESENT: no acute distress, cooperative, disheveled, obese Respiratory exam: PRESENT: clear to auscultation carlos, symmetrical, unlabored. ABSENT: accessory muscle use, chest wall tenderness, crackles, prolonged expiratory phas, rhonchi, tachypnea, wheezes Cardiovascular exam: PRESENT: RRR, +S1, +S2 Pulses: PRESENT: normal carotid pulses Vascular exam: PRESENT: normal capillary refill GI/Abdominal exam: PRESENT: normal bowel sounds, soft. ABSENT: distended, guarding, rebound, tenderness Extremities exam: ABSENT: clubbing, pedal edema Musculoskeletal exam: PRESENT: normal inspection. ABSENT: deformity Neurological exam: PRESENT: alert, awake, oriented to person, oriented to place, oriented to situation Psychiatric exam: PRESENT: appropriate affect, normal mood Skin exam: PRESENT: dry, warm Results Laboratory Results: 01/26/20 05:37 01/26/20 05:37 01/26/20 01/26/20 05:37 05:37 WBC 8.0 RBC 3.78 Hgb 12.0 Hct 36.9 MCV 98 H MCH 31.7 MCHC 32.5 RDW 17.2 H Plt Count 302 Sodium 136.3 L Potassium 4.0 Chloride 99 Carbon Dioxide 23 Anion Gap 14 BUN 47 H Creatinine 7.09 H Est GFR ( Amer) 7 L Glucose 39 L* Calcium 8.7 01/25/20 01/25/20 01/25/20 09:39 09:39 13:21 Creatine Kinase 82 CK-MB (CK-2) 1.84 Troponin I 0.078 0.076 Impressions: Chest X-Ray 01/25/20 14:42 IMPRESSION: Borderline cardiomegaly without pulmonary edema. Assessment and Plan - Diagnosis (1) Hypotension Qualifiers: Hypotension type: unspecified hypotension type Qualified Code(s): I95.9 - Hypotension, unspecified Is this a current diagnosis for this admission?: Yes Plan: Now resolved. I will start her back on her home medications. I thought about sending her home, but this patient is extremely frail and has been admitted several times for hypertensive emergency with a subsequent fluid overload, so I would like to make sure that her blood pressures are going to be controlled on her usual medications. If her blood pressures are controlled in the morning she can be discharged home. (2) Diabetes mellitus type 2 in obese Is this a current diagnosis for this admission?: Yes Plan: Diabetic diet on her home insulin regimen. Blood sugar overnight was low and so her fixed pre-meal Humalog bolus has been discontinued. (3) End-stage renal disease on hemodialysis Is this a current diagnosis for this admission?: Yes Plan: Nephrology consulted for possible dialysis tomorrow if her blood pressure improves (4) Gastro-esophageal reflux Qualifiers: Esophagitis presence: without esophagitis Qualified Code(s): K21.9 - Gastro-esophageal reflux disease without esophagitis Is this a current diagnosis for this admission?: Yes Plan: Continue her home medications (5) Hypertension Qualifiers: Hypertension type: essential hypertension Qualified Code(s): I10 - Essential (primary) hypertension Is this a current diagnosis for this admission?: Yes Plan: Resuming her home medications as previously noted - Time Time Spent with patient: 25-34 minutes
[2020-01-26] MEDS ORDERED: CLONIDINE 0.3 MG/24 HR PATCH.TDWK TD SCH (16:30)
--- NOTE | 2020-01-26 16:43 | PDOC CONSULTATION ---
Consultation Consult Date: 01/26/20 Provider Consulted: Brooke FLORES Consult reason:: ESRD for HD. History of Present Illness Admission Date/PCP: 01/25/20 16:58 IRENE SAMANIEGO History of Present Illness: SAMIA HEALY is a 59 year old female with stage renal disease in the background of hypertension, with other co morbidities of anxiety, and GERD was admitted After being found to be symptomatically hypotensive while when she went for her dialysis. She was given a bolus of saline and did not respond and was therefore transferred to the ER. She denies any history of chest pain or shor tness of breath. She is been more compliant with her blood pressure medications. Currently I am seeing her while on dialysis. Her blood pressure is still on the low normal side. However she feels a whole lot better as she has been fluid resuscitated now.Labs and medications were reviewed. Dialysis orders were reviewed with the treating dialysis nurse. Past Medical History Cardiac Medical History: Reports: Hypertension-primary Denies: Atrial Fibrillation, Coronary Artery Disease, Myocardial Infarction Pulmonary Medical History: Reports: Pneumonia Denies: Asthma, Bronchitis, Chronic Obstructive Pulmonary Disease (COPD) Neurological Medical History: Denies: Migraine, Seizures Endocrine Medical History: Reports: Diabetes Mellitus Type 2 Denies: Diabetes Mellitus Type 1, Hyperthyroidism, Hypothyroidism Renal/ Medical History: Reports: End Stage Renal Disease, Secondary Hyperparathyroidism GI Medical History: Denies: Cirrhosis, Crohn's Disease, Gastroesophageal Reflux Disease, Hepatitis, Ulcerative Colitis Musculoskeltal Medical History: Denies: Arthritis, Fibromyalgia Skin Medical History: Denies: Eczema, Psoriasis Psychiatric Medical History: Denies: Depression Past Surgical History Past Surgical History: Reports: Appendectomy, Section, Cholecystectomy, Dialysis Access Surgery AVF - Left upper arm placed with [facility], Orthopedic Surgery - Bilateral foot surgery, Tubal Ligation, Vascular Surgery - fistula upper arm (left) Done at [facility], Other - Tunneled central venous catheter placement for dialysis Social History Lives with: Family Smoking Status: Former Smoker Electronic Cigarette use?: No Frequency of Alcohol Use: None Hx Recreational Drug Use: No Drugs: None Hx Prescription Drug Abuse: No Family History Parental Family History Reviewed: Yes - Negative for ESRD Children Family History Reviewed: No Sibling(s) Family History Reviewed.: No Medication/Allergy Home Medications: Clonidine HCl 0.3 mg PO Q8 11/30/19 Pantoprazole Sodium [Protonix [address] Tablet] 40 mg PO BID 30 Days #60 tablet.dr 12/02/19 Sucralfate [Carafate 1 gm Tablet] 1 gm PO ACHS #120 tablet 12/02/19 Atorvastatin Calcium [Lipitor 20 mg Tablet] 20 mg PO QHS 01/25/20 Clonidine [Catapres-Tts 3 (0.3 mg/24 Hr) Transderm Patch] 1 patch TD Q7D 01/25/20 Gabapentin [Neurontin 300 mg Capsule] 300 mg PO Q12 01/25/20 Oxycodone HCl/Acetaminophen [Percocet 5-325 mg Tablet] 1 tab PO Q6HP PRN 01/25/20 Allergies/Adverse Reactions: Penicillins Allergy (Severe, Verified 01/25/20 10:27) rash ciprofloxacin [From Cipro] Allergy (Verified 01/25/20 10:27) shellfish derived Allergy (Verified 01/25/20 10:27) Swelling of tongue oxycodone [From Percocet] Adverse Reaction (Verified 01/25/20 10:27) Review of Systems Constitutional: PRESENT: fatigue, weakness. ABSENT: anorexia, fever(s), headache(s), night sweats Nose, Mouth, and Throat: ABSENT: mouth pain, sore throat Cardiovascular: ABSENT: chest pain, edema, orthropnea, palpitations Respiratory: ABSENT: dyspnea, hemoptysis Gastrointestinal: ABSENT: as per HPI, abdominal pain, bloating, coffee ground emesis, diarrhea Genitourinary: ABSENT: difficulty urinating, dysuria, hematuria Musculoskeletal: ABSENT: deformity, joint swelling Integumentary: ABSENT: lesions, pruritus Neurological: ABSENT: abnormal movements, abnormal speech, confusion, focal weakness Physical Exam Vital Signs: Temp Pulse Resp BP Pulse Ox 97.3 F 81 15 152/64 H 100 01/26/20 12:00 01/26/20 14:00 01/26/20 12:00 01/26/20 12:00 01/26/20 12:00 Intake & Output 01/25/20 01/26/20 01/27/20 06:59 06:59 06:59 Intake Total 1500 Balance 1500 Weight 65.8 kg General appearance: PRESENT: no acute distress Eye exam: PRESENT: EOMI, PERRLA. ABSENT: scleral icterus Mouth exam: PRESENT: moist Neck exam: ABSENT: lymphadenopathy, meningismus, tenderness, thyromegaly, tracheal deviation Respiratory exam: PRESENT: clear to auscultation carlos, decreased breath sounds. ABSENT: crackles GI/Abdominal exam: PRESENT: normal bowel sounds, soft. ABSENT: organomegaly, tenderness Extremities exam: ABSENT: pedal edema Neurological exam: PRESENT: alert, awake, oriented to person Psychiatric exam: PRESENT: appropriate affect Results Laboratory Results: 01/26/20 05:37 01/26/20 05:37 01/26/20 01/26/20 05:37 05:37 WBC 8.0 RBC 3.78 Hgb 12.0 Hct 36.9 MCV 98 H MCH 31.7 MCHC 32.5 RDW 17.2 H Plt Count 302 Sodium 136.3 L Potassium 4.0 Chloride 99 Carbon Dioxide 23 Anion Gap 14 BUN 47 H Creatinine 7.09 H Est GFR ( Amer) 7 L Glucose 39 L* Calcium 8.7 01/25/20 01/25/20 01/25/20 09:39 09:39 13:21 Creatine Kinase 82 CK-MB (CK-2) 1.84 Troponin I 0.078 0.076 Impressions: Chest X-Ray 01/25/20 14:42 IMPRESSION: Borderline cardiomegaly without pulmonary edema. Assessment & Plan - Diagnosis (1) Hypotension Qualifiers: Hypotension type: unspecified hypotension type Qualified Code(s): I95.9 - Hypotension, unspecified Is this a current diagnosis for this admission?: Yes Plan: Markedly improved now. Could have been because of being challenged for ultrafiltration on the previous dialysis as an outpatient. Monitor. (2) End stage renal failure on dialysis Plan: Currently undergoing dialysis without any issues. Plan minimal fluid removal. Dialysis being supervised. Dialysis orders were reviewed with the treating dialysis nurse. Vital signs are stable.
[2020-01-26] MEDS: PANTOPRAZOLE SODIUM 40 MG TABLET.DR PO SCH (17:12)
[2020-01-26] MEDS: ATORVASTATIN CALCIUM 20 MG TABLET PO SCH (22:14)
[2020-01-26] MEDS: GABAPENTIN 300 MG CAPSULE PO SCH (22:14)
[2020-01-26] MEDS: CLONIDINE HCL 0.2 MG TABLET PO SCH (22:14)
[2020-01-26] MEDS: SUCRALFATE 1 GM TABLET PO SCH (22:16)
[2020-01-26] MEDS: OXYCODONE-ACETAMINOPHEN 5-325 MG TABLET PO PRN (23:30)
[2020-01-27] MEDS: CLONIDINE HCL 0.2 MG TABLET PO SCH (06:06)
[2020-01-27] MEDS: HEPARIN SOD (PORCINE) 5,000 UNIT/ML 1 ML VIAL SUBCUT SCH ×3 (06:07→22:12)
[2020-01-27 06:12] LABS: ANION GAP 13 (5-19); BLOOD UREA NITROGEN 32 mg/dL (7-20); CALCIUM 8.6 mg/dL (8.4-10.2); CARBON DIOXIDE 26 mmol/L (22-30); CHLORIDE 95 mmol/L (98-107); GLUCOSE 231 mg/dL (75-110); POTASSIUM 3.9 mmol/L (3.6-5.0)
[2020-01-27] MEDS ORDERED: CLONIDINE HCL 0.2 MG TABLET PO SCH (09:06)
[2020-01-27] MEDS: SUCRALFATE 1 GM TABLET PO SCH ×4 (09:09→22:36)
[2020-01-27] MEDS: GABAPENTIN 300 MG CAPSULE PO SCH ×2 (09:09→22:10)
[2020-01-27] MEDS: PANTOPRAZOLE SODIUM 40 MG TABLET.DR PO SCH ×2 (09:09→17:18)
[2020-01-27] MEDS ORDERED: COSYNTROPIN INJ 0.25 MG VIAL IV PRN (11:30)
--- NOTE | 2020-01-27 12:17 | PDOC PROGRESS REPORT ---
Subjective Progress Note for:: 01/27/20 Subjective:: Patient was seen sitting up in bed today. She claims to feeling a little better. She does still have the dizziness when she goes from laying to sitting. She denies chest pain, SOB, n/v/d. She also denies fevers, chills, sputum production. Bp has been improving and is currently in the 120s to 130s systolic. Reason For Visit: HYPOTENSION, ESRD Physical Exam Vital Signs: Temp Pulse Resp BP Pulse Ox 97.3 F 66 12 103/39 L 98 01/26/20 23:21 01/27/20 07:00 01/26/20 23:21 01/27/20 09:00 01/26/20 23:21 Intake & Output 01/26/20 01/27/20 01/28/20 06:59 06:59 06:59 Intake Total 1500 Output Total 1300 Balance 1500 -1300 Weight 65.8 kg 68.8 kg General appearance: PRESENT: no acute distress, well-developed, well-nourished Mouth exam: PRESENT: moist, neck supple Neck exam: ABSENT: JVD, tracheal deviation Respiratory exam: PRESENT: clear to auscultation carlos, unlabored. ABSENT: crackles, rales, rhonchi, wheezes Cardiovascular exam: PRESENT: +S1, +S2 GI/Abdominal exam: PRESENT: soft. ABSENT: tenderness Extremities exam: ABSENT: pedal edema, +1 edema, +2 edema Musculoskeletal exam: PRESENT: normal inspection. ABSENT: tenderness Neurological exam: PRESENT: alert, awake, oriented to person, oriented to place, oriented to time, oriented to situation Psychiatric exam: PRESENT: appropriate affect, normal mood Skin exam: PRESENT: dry, intact, warm Results Laboratory Results: 01/26/20 05:37 01/27/20 05:36 01/27/20 05:36 Sodium 133.9 L Potassium 3.9 Chloride 95 L Carbon Dioxide 26 Anion Gap 13 BUN 32 H Creatinine 5.19 H Est GFR ( Amer) 10 L Glucose 231 H Calcium 8.6 01/25/20 01/25/20 01/25/20 09:39 09:39 13:21 Creatine Kinase 82 CK-MB (CK-2) 1.84 Troponin I 0.078 0.076 Impressions: Chest X-Ray 01/25/20 14:42 IMPRESSION: Borderline cardiomegaly without pulmonary edema. Assessment & Plan - Diagnosis (1) Hypotension Qualifiers: Hypotension type: unspecified hypotension type Qualified Code(s): I95.9 - Hypotension, unspecified Is this a current diagnosis for this admission?: Yes Plan: Likely due to her becoming compliant with her medications. Due to her noncompliance previously her bp meds were increased. No that she is taking them as prescribed they are dosed too high. Medications will need to be decreased in dose compared to the home meds. (2) ESRD (end stage renal disease) Plan: will look to arrange for dialysis tomorrow.
[2020-01-27] MEDS ORDERED: DEXTROSE 50%-WATER 25 GM/50 ML DISP.SYRIN IV PRN ×2 (18:15)
[2020-01-27] MEDS ORDERED: GLUCAGON,HUMAN RECOMB 1 MG INJ IM PRN (18:15)
[2020-01-27] MEDS ORDERED: DEXTROSE 40% GEL 15 GM TUBE PO PRN ×2 (18:15)
--- NOTE | 2020-01-27 18:17 | PDOC PROGRESS REPORT ---
Subjective Progress Note for:: 01/27/20 Subjective:: Patient was seen on morning rounds. She is found resting in bed, comfortably, on room air. She reports that she is feeling well today. She continues to have lightheadedness with position changes, however, this resolves quickly. She denies associated nausea or vomiting. She has no other questions or concerns at this time. No concerns per nursing. Reason For Visit: HYPOTENSION, ESRD Physical Exam Vital Signs: Temp Pulse Resp BP Pulse Ox 98.3 F 73 16 130/38 H 97 01/27/20 15:34 01/27/20 15:34 01/27/20 15:34 01/27/20 15:34 01/27/20 15:34 Intake & Output 01/26/20 01/27/20 01/28/20 06:59 06:59 06:59 Intake Total 1500 663 Output Total 1300 Balance 1500 -1300 663 Weight 65.8 kg 68.8 kg General appearance: PRESENT: no acute distress, cooperative, obese, well- developed, well-nourished Head exam: PRESENT: atraumatic, normocephalic Eye exam: PRESENT: conjunctiva pink, EOMI, PERRLA. ABSENT: scleral icterus Mouth exam: PRESENT: moist, tongue midline Respiratory exam: PRESENT: clear to auscultation carlos, symmetrical, unlabored. ABSENT: rales, rhonchi, wheezes Cardiovascular exam: PRESENT: RRR. ABSENT: diastolic murmur, rubs, systolic murmur Vascular exam: PRESENT: normal capillary refill Extremities exam: PRESENT: full ROM. ABSENT: calf tenderness, clubbing, pedal edema Neurological exam: PRESENT: alert, awake, oriented to person, oriented to place, oriented to time, oriented to situation, CN II-XII grossly intact. ABSENT: motor sensory deficit Psychiatric exam: PRESENT: appropriate affect, normal mood. ABSENT: homicidal ideation, suicidal ideation Skin exam: PRESENT: dry, intact, warm. ABSENT: cyanosis, rash Results Laboratory Results: 01/26/20 05:37 01/27/20 05:36 01/27/20 05:36 Sodium 133.9 L Potassium 3.9 Chloride 95 L Carbon Dioxide 26 Anion Gap 13 BUN 32 H Creatinine 5.19 H Est GFR ( Amer) 10 L Glucose 231 H Calcium 8.6 01/25/20 01/25/2001/24/20 09:39 09:39 13:21 Creatine Kinase 82 CK-MB (CK-2) 1.84 Troponin I 0.078 0.076 Impressions: Chest X-Ray 01/25/20 14:42 IMPRESSION: Borderline cardiomegaly without pulmonary edema. Assessment and Plan - Diagnosis (1) Hypotension Qualifiers: Hypotension type: unspecified hypotension type Qualified Code(s): I95.9 - Hypotension, unspecified Is this a current diagnosis for this admission?: Yes Plan: Now resolved. Likely secondary to previous medication noncompliance resulting in dosing that is too high now that she is compliant with her medications. A.m. cortisol and ACTH stimulation testing normal. We will start amlodipine 5 mg nightly. Reduce home dose clonidine from 0.3 mg to 0.1 mg 3 times daily. Dialysis diet. Continue to monitor; if the patient remains normotensive following dialysis tomorrow, may safely discharged home. (2) Diabetes mellitus type 2 in obese Is this a current diagnosis for this admission?: Yes Plan: A1c 11% Patient is placed on a consistent carb/dialysis diet. Accu-Cheks before meals and at bedtime with Humalog for sliding scale coverage. Hypoglycemia protocol in place. (3) End-stage renal disease on hemodialysis Is this a current diagnosis for this admission?: Yes Plan: Nephrology consulted; dialysis per their expertise (4) Gastro-esophageal reflux Qualifiers: Esophagitis presence: without esophagitis Qualified Code(s): K21.9 - Gastro-esophageal reflux disease without esophagitis Is this a current diagnosis for this admission?: Yes Plan: Continue her home medications (5) Hypertension Qualifiers: Hypertension type: essential hypertension Qualified Code(s): I10 - Essential (primary) hypertension Is this a current diagnosis for this admission?: Yes Plan: Antihypertensives as above. - Time Time Spent with patient: 25-34 minutes Medications reviewed and adjusted accordingly: Yes Anticipated discharge: Home Within: within 24 hours
[2020-01-27] MEDS ORDERED: AMLODIPINE BESYLATE 5 MG TABLET PO SCH (22:00)
[2020-01-27] MEDS: OXYCODONE-ACETAMINOPHEN 5-325 MG TABLET PO PRN (22:08)
[2020-01-27] MEDS: CLONIDINE HCL 0.1 MG TABLET PO SCH (22:10)
[2020-01-27] MEDS: ATORVASTATIN CALCIUM 20 MG TABLET PO SCH (22:10)
[2020-01-27] MEDS: INSULIN LISPRO 100 UNIT/ML 3 ML VIAL SUBCUT SCH (22:27)
[2020-01-28] MEDS ORDERED: MIDODRINE HCL 5 MG TABLET PO ONE ×2 (04:25→07:00)
[2020-01-28] MEDS: CLONIDINE HCL 0.1 MG TABLET PO SCH ×2 (05:45→21:14)
[2020-01-28] MEDS: HEPARIN SOD (PORCINE) 5,000 UNIT/ML 1 ML VIAL SUBCUT SCH ×3 (05:49→21:27)
[2020-01-28 07:06] LABS: ANION GAP 13 (5-19); BLOOD UREA NITROGEN 47 mg/dL (7-20); CARBON DIOXIDE 26 mmol/L (22-30); CHLORIDE 94 mmol/L (98-107); GLUCOSE 89 mg/dL (75-110); POTASSIUM 4.1 mmol/L (3.6-5.0)
[2020-01-28] MEDS: SUCRALFATE 1 GM TABLET PO SCH ×4 (08:11→21:25)
[2020-01-28] MEDS: INSULIN LISPRO 100 UNIT/ML 3 ML VIAL SUBCUT SCH ×4 (08:12→22:17)
[2020-01-28] MEDS ORDERED: AMLODIPINE BESYLATE 5 MG TABLET PO SCH ×2 (09:26→22:00)
[2020-01-28] MEDS ORDERED: CLONIDINE HCL 0.1 MG TABLET PO SCH (10:00)
--- NOTE | 2020-01-28 11:56 | PDOC PROGRESS REPORT ---
Subjective Progress Note for:: 01/28/20 Reason For Visit: Patient was seen on dialysis today. She is undergoing dialysis without any issues but for the fact her blood pressure is rather lowish. However she is asymptomatic. No complaints of any headache, chest pain or shortness of breath. Fluid removal is currently very minimal given her hemodynamic instability. Labs and medications were reviewed. Dialysis orders were reviewed with the treating dialysis nurse. Discussions were also done with the treating hospi talist Leila Ortiz. Physical Exam Vital Signs: Temp Pulse Resp BP Pulse Ox 97.9 F 67 16 121/38 L 93 01/28/20 11:17 01/28/20 11:17 01/28/20 11:17 01/28/20 11:17 01/28/20 01:23 Intake & Output 01/27/20 01/28/20 01/29/20 06:59 06:59 06:59 Intake Total 1105 Output Total 1300 Balance -1300 1105 Weight 68.8 kg 68.8 kg General appearance: PRESENT: no acute distress Respiratory exam: PRESENT: clear to auscultation carlos, decreased breath sounds. ABSENT: chest wall tenderness, crackles Cardiovascular exam: PRESENT: +S1, +S2 GI/Abdominal exam: PRESENT: soft. ABSENT: tenderness Extremities exam: ABSENT: pedal edema Neurological exam: PRESENT: alert, awake, oriented to person, oriented to place Psychiatric exam: PRESENT: appropriate affect Skin exam: ABSENT: erythema, mottled, rash Results Laboratory Results: 01/26/20 05:37 01/28/20 06:00 01/28/20 06:00 Sodium 133.2 L Potassium 4.1 Chloride 94 L Carbon Dioxide 26 Anion Gap 13 BUN 47 H Creatinine 7.14 H Est GFR ( Amer) 7 L Glucose 89 Calcium 9.0 01/25/20 01/25/20 01/25/20 09:39 09:39 13:21 Creatine Kinase 82 CK-MB (CK-2) 1.84 Troponin I 0.078 0.076 Impressions: Chest X-Ray 01/25/20 14:42 IMPRESSION: Borderline cardiomegaly without pulmonary edema. Assessment & Plan - Diagnosis (1) Hypotension Qualifiers: Hypotension type: unspecified hypotension type Qualified Code(s): I95.9 - Hypotension, unspecified Is this a current diagnosis for this admission?: Yes Plan: There is no obvious evidences of any infection. Her cortisol level seems adequate. At this point I wonder if she has been taking her home medications more regularly leading to much better than usual response to her blood pressure. Discussed with Leila Ortiz/hospitalist to reduce her clonidine to 0.1 q 12 hours and hold if systolic BP below 150 and to DC amlodipine. (2) End stage renal failure on dialysis Plan: Patient currently undergoing dialysis without any issues but for the fact her blood pressure is rather low. However she is asymptomatic. Therefore we will not remove any fluids. Further down titration of her medications. Dialysis orders reviewed with the treating dialysis nurse (3) Diabetes mellitus type 2 in nonobese Plan: As per hospitalist.
[2020-01-28] MEDS: GABAPENTIN 300 MG CAPSULE PO SCH ×2 (12:03→21:13)
[2020-01-28] MEDS: PANTOPRAZOLE SODIUM 40 MG TABLET.DR PO SCH ×2 (12:04→17:29)
--- NOTE | 2020-01-28 16:05 | PDOC PROGRESS REPORT ---
Subjective Progress Note for:: 01/28/20 Subjective:: Patient denies SOB, chest pain, chest pressure, and dizziness Reason For Visit: HYPOTENSION, ESRD Physical Exam Vital Signs: Temp Pulse Resp BP Pulse Ox 97.9 F 67 16 121/38 L 93 01/28/20 11:17 01/28/20 11:17 01/28/20 11:17 01/28/20 11:17 01/28/20 01:23 Intake & Output 01/27/20 01/28/20 01/29/20 06:59 06:59 06:59 Intake Total 1105 1480 Output Total 1300 1500 Balance -1300 1105 -20 Weight 68.8 kg 68.8 kg General appearance: PRESENT: no acute distress, obese, well-developed, well- nourished Head exam: PRESENT: atraumatic, normocephalic Eye exam: PRESENT: conjunctiva pink Mouth exam: PRESENT: moist, neck supple, tongue midline Neck exam: ABSENT: JVD Respiratory exam: PRESENT: clear to auscultation carlos, unlabored. ABSENT: accessory muscle use Cardiovascular exam: PRESENT: RRR Vascular exam: PRESENT: normal capillary refill GI/Abdominal exam: PRESENT: soft. ABSENT: distended, tenderness Rectal exam: PRESENT: deferred Extremities exam: ABSENT: calf tenderness, pedal edema Neurological exam: PRESENT: alert, awake, oriented to person, oriented to place, oriented to time, oriented to situation Psychiatric exam: PRESENT: normal mood. ABSENT: agitated, anxious Skin exam: PRESENT: dry, normal color, warm Results Laboratory Results: 01/26/20 05:37 01/28/20 06:00 01/28/20 06:00 Sodium 133.2 L Potassium 4.1 Chloride 94 L Carbon Dioxide 26 Anion Gap 13 BUN 47 H Creatinine 7.14 H Est GFR ( Amer) 7 L Glucose 89 Calcium 9.0 01/25/20 01/25/20 01/25/20 09:39 09:39 13:21 Creatine Kinase 82 CK-MB (CK-2) 1.84 Troponin I 0.078 0.076 Impressions: Chest X-Ray 01/25/20 14:42 IMPRESSION: Borderline cardiomegaly without pulmonary edema. Assessment and Plan - Diagnosis (1) Hypotension Qualifiers: Hypotension type: unspecified hypotension type Qualified Code(s): I95.9 - Hypotension, unspecified Is this a current diagnosis for this admission?: Yes Plan: Patient with asymptomatic hypotension during hemodialysis as well as ongoing low DBP Likely related to antihypertensive medications Given dose of midodrine overnight Cortisol level on 01/27/2020 50.5 with normal cortisol stimulation response (2) Hypertension Qualifiers: Hypertension type: essential hypertension Qualified Code(s): I10 - Essential (primary) hypertension Is this a current diagnosis for this admission?: Yes Plan: Amlodipine 5 mg p.o. daily restarted, decrease dose to 2.5 mg p.o. daily - patient with borderline hypotension during HD with ongoing diastolic hypotension Continue clonidine 0.1 mg p.o. every 12 hours (3) Dyslipidemia Is this a current diagnosis for this admission?: Yes Plan: Continue atorvastatin 20 mg p.o. daily (4) End-stage renal disease on hemodialysis Is this a current diagnosis for this admission?: Yes Plan: Patient had HD today (5) Hyponatremia Is this a current diagnosis for this admission?: Yes Plan: HD per nephrology (6) Diabetes mellitus type 2 in obese Is this a current diagnosis for this admission?: Yes Plan: Continue carb restricted diet Continue FSBS with SSI correction scale Continue to monitor (7) Gastro-esophageal reflux Qualifiers: Esophagitis presence: without esophagitis Qualified Code(s): K21.9 - Gastro-esophageal reflux disease without esophagitis Is this a current diagnosis for this admission?: Yes Plan: Continue pantoprazole 40 mg p.o. twice daily Continue sucralfate 1 g p.o. before meals and at bedtime - Plan Summary Summary: We will plan to adjust antihypertensive medications and once BP remained stable plan for discharge - Time Time Spent with patient: 15-24 minutes
[2020-01-28] MEDS: ATORVASTATIN CALCIUM 20 MG TABLET PO SCH (21:13)
[2020-01-28] MEDS: OXYCODONE-ACETAMINOPHEN 5-325 MG TABLET PO PRN (21:14)
[2020-01-29] MEDS: HEPARIN SOD (PORCINE) 5,000 UNIT/ML 1 ML VIAL SUBCUT SCH (05:54)
[2020-01-29] MEDS: INSULIN LISPRO 100 UNIT/ML 3 ML VIAL SUBCUT SCH (08:56)
[2020-01-29] MEDS: CLONIDINE HCL 0.1 MG TABLET PO SCH (09:01)
[2020-01-29] MEDS: SUCRALFATE 1 GM TABLET PO SCH (09:01)
[2020-01-29] MEDS: GABAPENTIN 300 MG CAPSULE PO SCH (09:01)
[2020-01-29] MEDS: PANTOPRAZOLE SODIUM 40 MG TABLET.DR PO SCH (09:01)
[2020-01-29 09:16] VITALS: BP 130/42
--- NOTE | 2020-01-29 10:15 | PDOC DISCHARGE SUMMARY ---
Impression - Admit/DC Date/PCP Admission Date/Primary Care Provider: 01/25/20 16:58 IRENE SAMANIEGO Discharge Date: 01/29/20 - Discharge Diagnosis (1) Hypotension Is this a current diagnosis for this admission?: Yes (2) Hypertension Is this a current diagnosis for this admission?: Yes (3) Dyslipidemia Is this a current diagnosis for this admission?: Yes (4) End-stage renal disease on hemodialysis Is this a current diagnosis for this admission?: Yes (5) Hyponatremia Is this a current diagnosis for this admission?: Yes (6) Diabetes mellitus type 2 in obese Is this a current diagnosis for this admission?: Yes (7) Gastro-esophageal reflux Is this a current diagnosis for this admission?: Yes - Assessment Summary: We will plan to adjust antihypertensive medications and once BP remained stable plan for discharge - Additional Information Discharge Diet: Other (Comments) - Renal diet Discharge Activity: Activity As Tolerated Referrals: IRENE SAMANIEGO MD [Primary Care Provider] - 02/02/20 11:15 am Prescriptions: Clonidine HCl [Catapres 0.1 mg Tablet] 0.1 mg PO Q12 15 Days #30 tablet Amlodipine Besylate [Norvasc 5 mg Tablet] 2.5 mg PO QHS #15 tablet Home Medications: Pantoprazole Sodium [Protonix [address] Tablet] 40 mg PO BID 30 Days #60 tablet.dr 12/02/19 Sucralfate [Carafate 1 gm Tablet] 1 gm PO ACHS #120 tablet 12/02/19 Atorvastatin Calcium [Lipitor 20 mg Tablet] 20 mg PO QHS 01/25/20 Gabapentin [Neurontin 300 mg Capsule] 300 mg PO Q12 01/25/20 Oxycodone HCl/Acetaminophen [Percocet 5-325 mg Tablet] 1 tab PO Q6HP PRN 01/25/20 Amlodipine Besylate [Norvasc 5 mg Tablet] 2.5 mg PO QHS #15 tablet 01/29/20 Clonidine HCl [Catapres 0.1 mg Tablet] 0.1 mg PO Q12 15 Days #30 tablet 01/29/20 History of Present Illiness History of Present Illness: SAMIA HEALY is a 59 year old female with end-stage renal disease, hypertension, anxiety, and GERD who is well-known to this service. She presents today after being found to have a low blood pressure on her regularly scheduled dialysis appointment today. She says that she feels fine. She says she is not had any changes in her blood pressure medication. She said that she did have dialysis on Friday and she thinks they pulled 3 L off of her then, and she says they typically only pull 2 L. She has not had any fevers. No chest pain or shortness of breath. No cough. No abdominal pain, nausea, vomiting, or diarrhea. Her systolic was in the 80s at the dialysis center. The dialysis center gave her a liter of fluid and it was essentially unchanged. She got another 1500 mL's here and her systolic is in the low to mid 90s now. Her heart rate was in the 60s. Hospital Course Hospital Course: (1) Hypotension Qualifiers: Hypotension type: unspecified hypotension type Qualified Code(s): I95.9 - Hypotension, unspecified Is this a current diagnosis for this admission?: Yes Plan: Patient with asymptomatic hypotension during hemodialysis as well as ongoing low DBP Likely related to antihypertensive medications Given dose of midodrine overnight Cortisol level on 01/27/2020 50.5 with normal cortisol stimulation response (2) Hypertension Qualifiers: Hypertension type: essential hypertension Qualified Code(s): I10 - Essential (primary) hypertension Is this a current diagnosis for this admission?: Yes Plan: Amlodipine 5 mg p.o. daily restarted, decrease dose to 2.5 mg p.o. daily - patient with borderline hypotension during HD with ongoing diastolic hypotension Continue clonidine 0.1 mg p.o. every 12 hours (3) Dyslipidemia Is this a current diagnosis for this admission?: Yes Plan: Continue atorvastatin 20 mg p.o. daily (4) End-stage renal disease on hemodialysis Is this a current diagnosis for this admission?: Yes Plan: Patient had HD 03/30/20 (5) Hyponatremia Is this a current diagnosis for this admission?: Yes Plan: HD per nephrology (6) Diabetes mellitus type 2 in obese Is this a current diagnosis for this admission?: Yes Plan: Continue carb restricted diet Monitor per PCP (7) Gastro-esophageal reflux Qualifiers: Esophagitis presence: without esophagitis Qualified Code(s): K21.9 - Gastro-esophageal reflux disease without esophagitis Is this a current diagnosis for this admission?: Yes Plan: Continue pantoprazole 40 mg p.o. twice daily Continue sucralfate 1 g p.o. before meals and at bedtime Physical Exam Vital Signs: Temp Pulse Resp BP Pulse Ox 97.6 F 62 15 130/42 H 97 01/29/20 07:11 01/29/20 07:11 01/29/20 07:11 01/29/20 09:15 01/29/20 07:11 Intake & Output 01/28/20 01/29/20 01/30/20 06:59 06:59 06:59 Intake Total 1105 1960 Output Total 1500 Balance 1105 460 Weight 68.8 kg General appearance: PRESENT: no acute distress, cooperative Exam: Denies dizziness, lightheadedness, chest pain/pressure Head exam: PRESENT: atraumatic, normocephalic Respiratory exam: PRESENT: accessory muscle use, clear to auscultation carlos, sy mmetrical Cardiovascular exam: PRESENT: RRR Pulses: PRESENT: normal carotid pulses GI/Abdominal exam: PRESENT: normal bowel sounds Rectal exam: PRESENT: deferred Extremities exam: PRESENT: full ROM. ABSENT: calf tenderness Musculoskeletal exam: PRESENT: full ROM Neurological exam: PRESENT: alert, awake, oriented to person, oriented to place, oriented to time, oriented to situation Skin exam: PRESENT: dry, warm Results Laboratory Results: WBC 8.0 10^3/uL (4.0-10.5) 01/26/20 05:37 RBC 3.78 10^6/uL (3.72-5.28) 01/26/20 05:37 Hgb 12.0 g/dL (12.0-15.5) 01/26/20 05:37 Hct 36.9 % (36.0-47.0) 01/26/20 05:37 MCV 98 fl (80-97) H 01/26/20 05:37 MCH 31.7 pg (27.0-33.4) 01/26/20 05:37 MCHC 32.5 g/dL (32.0-36.0) 01/26/20 05:37 RDW 17.2 % (11.5-14.0) H 01/26/20 05:37 Plt Count 302 10^3/uL (150-450) 01/26/20 05:37 Lymph % (Auto) 14.3 % (13-45) 01/25/20 09:39 [place] % (Auto) 10.2 % (3-13) 01/25/20 09:39 Eos % (Auto) 2.9 % (0-6) 01/25/20 09:39 Baso % (Auto) 0.7 % (0-2) 01/25/20 09:39 Absolute Neuts (auto) 5.3 10^3/uL (1.7-8.2) 01/25/20 09:39 Absolute Lymphs (auto) 1.1 10^3/uL (0.5-4.7) 01/25/20 09:39 Absolute Monos (auto) 0.7 10^3/uL (0.1-1.4) 01/25/20 09:39 Absolute Eos (auto) 0.2 10^3/uL (0.0-0.6) 01/25/20 09:39 Absolute Basos (auto) 0.1 10^3/uL (0.0-0.2) 01/25/20 09:39 Seg Neutrophils % 71.9 % (42-78) 01/25/20 09:39 Sodium 133.2 mmol/L (137-145) L 01/28/20 06:00 Potassium 4.1 mmol/L (3.6-5.0) 01/28/20 06:00 Chloride 94 mmol/L (98-107) L 01/28/20 06:00 Carbon Dioxide 26 mmol/L (22-30) 01/28/20 06:00 Anion Gap 13 (5-19) 01/28/20 06:00 BUN 47 mg/dL (7-20) H 01/28/20 06:00 Creatinine 7.14 mg/dL (0.52-1.25) H 01/28/20 06:00 Est GFR ( Amer) 7 (>60) L 01/28/20 06:00 Est GFR (MDRD) Non-Af 6 (>60) L 01/28/20 06:00 Glucose 89 mg/dL (75-110) 01/28/20 06:00 POC Glucose 101 mg/dL (70-110) 01/29/20 06:05 Calcium 9.0 mg/dL (8.4-10.2) 01/28/20 06:00 Total Bilirubin 0.6 mg/dL (0.2-1.3) 01/25/20 09:39 Direct Bilirubin 0.3 mg/dL (0.0-0.4) 01/25/20 09:39 Neonat Total Bilirubin Not Reportable 01/25/20 09:39 Neonat Direct Bilirubin Not Reportable 01/25/20 09:39 Neonat Indirect Bili Not Reportable 01/25/20 09:39 AST 19 U/L (14-36) 01/25/20 09:39 ALT 15 U/L (<35) 01/25/20 09:39 Alkaline Phosphatase 110 U/L (38-126) 01/25/20 09:39 Creatine Kinase 82 U/L (30-135) 01/25/20 09:39 CK-MB (CK-2) 1.84 ng/mL (<4.55) 01/25/20 09:39 Troponin I 0.076 ng/mL 01/25/20 13:21 Total Protein 6.4 g/dL (6.3-8.2) 01/25/20 09:39 Albumin 3.3 g/dL (3.5-5.0) L 01/25/20 09:39 Random Cortisol 50.50 ug/dL (None Established) 01/27/20 13:37 Cortisol AM Sample 7.06 ug/dL (4.46-22.7) 01/27/20 05:36 01/25/20 01/25/20 09:39 13:21 CK-MB (CK-2) 1.84 Troponin I 0.078 0.076 Impressions: Chest X-Ray 01/25/20 14:42 IMPRESSION: Borderline cardiomegaly without pulmonary edema. Plan Health Concerns: Continue risk for hypotension during dialysis Plan of Treatment: Medication changes as noted above Follow-up with primary care provider within 1 week of discharge Resume usual outpatient hemodialysis as scheduled Follow-up with [facility] as needed Goals: Labile blood pressure during dialysis Stroke Is this a Stroke Patient?: No Acute Heart Failure - Is this a Heart Failure Patient?: No
== END 2020-01-29 11:44 | disposition home or self-care (01) | DRG 312 ==
LOC: ER 08:58 → EH 16:58 → 4S 17:58
PROVIDERS: ADMIT Family Medicine; ATTEND Nurse Practitioner
PROC: 5A1D70Z Performance of Urinary Filtration, Intermittent, Less than 6 Hours Per Day (ICD-10-PCS; principal; 2020-01-26)
PROC: 5A1D70Z Performance of Urinary Filtration, Intermittent, Less than 6 Hours Per Day (ICD-10-PCS; 2020-01-28)
DX: I95.2 Hypotension due to drugs (principal); N18.6 End stage renal disease; I12.0 Hypertensive chronic kidney disease with stage 5 chronic kidney disease or end stage renal disease; E87.1 Hypo-osmolality and hyponatremia; T46.5X5A Adverse effect of other antihypertensive drugs, initial encounter; D63.1 Anemia in chronic kidney disease; E11.22 Type 2 diabetes mellitus with diabetic chronic kidney disease; K21.9 Gastro-esophageal reflux disease without esophagitis; Z99.2 Dependence on renal dialysis; Z79.4 Long term (current) use of insulin; F41.9 Anxiety disorder, unspecified; Z90.49 Acquired absence of other specified parts of digestive tract; Z83.3 Family history of diabetes mellitus; Z82.49 Family history of ischemic heart disease and other diseases of the circulatory system; Z79.82 Long term (current) use of aspirin; Z88.1 Allergy status to other antibiotic agents; Z88.0 Allergy status to penicillin; Z91.013 Allergy to seafood; E78.5 Hyperlipidemia, unspecified; Z79.899 Other long term (current) drug therapy; Z87.891 Personal history of nicotine dependence
CPT/HCPCS: 36415; 71045; 80048; 80053; 82533; 82550; 82553; 82962; 84484; 85025; 85027; 93005; 93010; 96360; 96361; 99285; J0834; J1644; J1815; J3490; J7030; J7040